=== PATIENT | female | born 1985 | race Caucasian/White ===

== ENCOUNTER 2023-04-25 13:59 | Emergency (ER) | payer OTHER, SELFPAY ==
[2023-04-25 14:06] VITALS: BP 122/91; PULSE 92; RESP 18; TEMP 36.7; O2SAT 100; BMI 28.3
--- NOTE | 2023-04-25 14:24 | ED_ITS ---
HPI - Skin/Abscess/Foreign Bdy General Chief complaint: Skin/Abscess/Foreign Body Stated complaint: LT BREAS LUMP W DRAINADGE Time Seen by Provider: 04/25/23 14:24 Source: patient Mode of arrival: walk-in Limitations: no limitations History of Present Illness HPI narrative: 38-year-old female presents to the emergency department for swelling and pain to her left breast, specifically at the nipple area. She thinks she saw some pus come out of her nipple. She's had this issue before and had to have them drained, twice. No fever or injury. She's had this for a few days and it's continuous. Related Data Previous Rx's Medication Instructions Recorded cephalexin 500 mg capsule 500 mg PO QID 10 days #40 caps 04/25/23 sulfamethoxazole 800 1 tab PO BID 10 days #20 tabs 04/25/23 mg-trimethoprim 160 mg tablet (Bactrim DS) Allergies Allergy/AdvReac Type Severity Reaction Status Date / Time Penicillins Allergy Intermediate Verified 04/25/23 14:09 Review of Systems ROS Narrative A ten point review of systems is negative except as noted above. PFSH PFSH Social History Smoking status: Current every day smoker Exam Narrative Exam Narrative: Nurses note and vital signs reviewed and patient is not hypoxic. General: The patient appears well and in no apparent distress. Patient is resting comfortably on cart. Skin: Warm, dry, no pallor noted. left breast is examined and in the areolar area is a firm area approximately 4 cm in diameter. It's not fluctuant. There is some minimal erythema outside the areola. There is no current nipple discharge. Head: Normocephalic, atraumatic Eye: Normal conjunctiva, no drainage Ears, Nose, Mouth, and Throat: oral mucosa is moist. Nares patent. Cardiovascular: Regular Rate and Rhythm Respiratory: Patient is in no distress, no accessory muscle use, lungs are clear to auscultation, no wheezing, rales or rhonchi Back: non-tender GI: soft and nontender Musculoskeletal: The patient has no evidence of calf tenderness, no pitting edema, symmetrical pulses noted bilaterally Neurological: A&O, normal speech Psychiatric: Cooperative Constitutional Vital Signs, click to edit/add: Last Vital Signs Temp 98.0 F 04/25/23 14:06 Pulse 92 H 04/25/23 14:06 Resp 18 04/25/23 14:06 BP 122/91 04/25/23 14:06 Pulse Ox 100 04/25/23 14:06 O2 Del Method Room Air 04/25/23 14:06 Course Vital Signs Vital signs: Vital Signs Temperature 98.0 F 04/25/23 14:06 Pulse Rate 92 H 04/25/23 14:06 Respiratory Rate 18 04/25/23 14:06 Blood Pressure 122/91 04/25/23 14:06 Pulse Oximetry 100 04/25/23 14:06 Oxygen Delivery Method Room Air 04/25/23 14:06 Temperature 98.0 F 04/25/23 14:06 Pulse Rate 92 H 04/25/23 14:06 Respiratory Rate 18 04/25/23 14:06 Blood Pressure 122/91 04/25/23 14:06 Pulse Oximetry 100 04/25/23 14:06 Oxygen Delivery Method Room Air 04/25/23 14:06 MDM - Skin/Abscess/Foreign Bdy MDM Narrative Medical decision making narrative: The patient's blood work is nonspecific and she was given IV vancomycin here. She is referred to general surgery for appropriate follow-up. Incision and drainage at this point would not be appropriate in the emergency department. She does not require admission the hospital. Treatment diagnosis and follow-up were discussed with the patient. Differential Diagnosis Differential diagnosis: Likely abscess of skin or subcutaneous tissue and cellulitis Lab Data Attestation: I reviewed the patient's lab results. Labs: Lab Results 04/25/23 Range/Units 14:37 WBC 9.7 (4.0-11.0) 10^3/uL RBC 4.17 L (4.20-5.40) 10^6/uL Hgb 12.9 (12.0-16.0) g/dL Hct 38.8 (36.0-48.0) % MCV 93.0 (81.0-99.0) fL MCH 30.9 (26.7-34.0) pg MCHC 33.2 (29.9-35.2) g/dL RDW 13.6 (11.0-15.0) % Plt Count 148 L (150-450) 10^3/uL MPV 10.8 (9.5-13.5) fL Neut % (Auto) 70.7 (43.0-75.0) % Lymph % (Auto) 23.5 (20.5-60.0) % [place] % (Auto) 4.4 (1.7-12.0) % Eos % (Auto) 0.6 L (0.9-7.0) % Baso % (Auto) 0.5 (0.2-2.0) % Neut # (Auto) 6.9 H (1.4-6.5) 10^3/uL Lymph # (Auto) 2.3 (1.2-3.8) 10^3/uL [place] # (Auto) 0.4 (0.3-0.8) 10^3/uL Eos # (Auto) 0.1 (0.0-0.7) 10^3/uL Baso # (Auto) 0.1 (0.0-0.1) 10^3/uL Abs Immat Gran (auto) 0.03 (0.00-0.03) 10^3/uL Imm/Tot Granulo (auto) 0.3 (0.0-0.5) % Sodium 139 (136-145) mmol/L Potassium 3.7 (3.5-5.1) mmol/L Chloride 103 (98-107) mmol/L Carbon Dioxide 27.9 (21.0-32.0) mmol/L Anion Gap 11.8 BUN 12.0 (7.0-18.0) mg/dL Creatinine 0.69 (0.55-1.02) mg/dL Est GFR ( Amer) >60 (>=60) Est GFR (Non-Af Amer) >60 (>=60) BUN/Creatinine Ratio 17.4 Glucose 91 (74-106) mg/dL Calcium 8.7 (8.5-10.1) mg/dL Discharge Plan Discharge Chief Complaint: Skin/Abscess/Foreign Body Clinical Impression: Breast abscess Patient Disposition: Home, Self-Care Time of Disposition Decision: 15:49 Condition: Good Mode of Transportation: Private Vehicle Prescriptions / Home Meds: New sulfamethoxazole-trimethoprim [Bactrim DS] 800-160 mg tablet 1 tab PO BID 10 Days Qty: 20 0RF cephalexin 500 mg capsule 500 mg PO QID 10 Days Qty: 40 0RF Instructions: Abscess (ED) Additional Instructions: follow-up with Dr. Owusu Stand Alone Forms: Portal Instructions Referrals: Physician,Non-Staff, MD [Primary Care Provider] - 1 week
[2023-04-25 14:42] LABS: Basophils Absolute Auto 0.1 10^3/uL (0.0-0.1); Basophils Percent Auto 0.5 % (0.2-2.0); Eosinophils Absolute Auto 0.1 10^3/uL (0.0-0.7); Eosinophils Percent Auto 0.6 % (0.9-7.0); Hematocrit 38.8 % (36.0-48.0); Hemoglobin 12.9 g/dL (12.0-16.0); Immature Granulocytes Abs Auto 0.03 10^3/uL (0.00-0.03); Immature Granulocytes Pct Auto 0.3 % (0.0-0.5); Lymphocytes Absolute Auto 2.3 10^3/uL (1.2-3.8); Lymphocytes Percent Auto 23.5 % (20.5-60.0); Mean Corpuscular HGB Conc 33.2 g/dL (29.9-35.2); Mean Corpuscular Hemoglobin 30.9 pg (26.7-34.0); Mean Platelet Volume 10.8 fL (9.5-13.5); Monocytes Absolute Auto 0.4 10^3/uL (0.3-0.8); Monocytes Percent Auto 4.4 % (1.7-12.0); Neutrophils Absolute Auto 6.9 10^3/uL (1.4-6.5); Neutrophils Percent Auto 70.7 % (43.0-75.0); Platelet Count 148 10^3/uL (150-450); Red Blood Count 4.17 10^6/uL (4.20-5.40); Red Cell Distribution Width 13.6 % (11.0-15.0); White Blood Count 9.7 10^3/uL (4.0-11.0)
[2023-04-25] MEDS: VANCOMYCIN HCL 1,250 MG in 0.9 % SODIUM CHLORIDE 250 ML 250 MG IV (14:59)
[2023-04-25 15:02] LABS: Anion Gap 11.8; BUN Creatinine Ratio 17.4; Calcium 8.7 mg/dL (8.5-10.1); Carbon Dioxide 27.9 mmol/L (21.0-32.0); Chloride 103 mmol/L (98-107); Estimated GFR (African America >60 (>=60); Estimated GFR (Non-African Ame >60 (>=60); Glucose 91 mg/dL (74-106); Potassium 3.7 mmol/L (3.5-5.1); Sodium 139 mmol/L (136-145)
== END 2023-04-25 16:17 | disposition home or self-care (01) ==
PROVIDERS: Emergency Provider Emergency Medicine
DX: N61.1 Abscess of the breast and nipple (principal); F17.210 Nicotine dependence, cigarettes, uncomplicated
CPT/HCPCS: 36415; 80048; 85025; 96374; 99284; J3370

== ENCOUNTER 2023-04-29 10:38 | Inpatient (IN) | payer OTHER, SELFPAY ==
[2023-04-29 10:42] VITALS: BP 120/90; PULSE 90; RESP 16; TEMP 36.6; O2SAT 100; BMI 29.2
--- NOTE | 2023-04-29 10:47 | PC.NURSE ---
Left breast has hard reddened area at nipple site, no drainage at this time.
--- NOTE | 2023-04-29 10:53 | US_ITS ---
Patient: WADE LOPEZ Exam Date: 04/29/2023 : 1985 Gender:F Ordering : Guera Arzate . Admission #: [id number] Family : Non-Staff Physician Order #: [id number] CLICK HERE TO VIEW EXAM RADIOLOGY REPORT PROCEDURE: US BREAST LT LIMITED COMPARISON: None. INDICATIONS: left breast tenderness and redness and induration TECHNIQUE: Breast ultrasound was performed, with evaluation focusing only on specific areas of concern. FINDINGS: Ultrasound of the left breast demonstrates a 3.7 x 3.2 x 2.0 cm area of heterogeneous hypo echogenicity, mildly lobular in contour with no vascularity. Some linear areas of hyperdensity are noted along the margin of the lesion, noted by the technologist to be packing within a recently incised and drained abscess. Peripheral hypervascularity is identified. Findings are consistent with a known abscess RECOMMENDATIONS: None PLEASE NOTE: A NORMAL ULTRASOUND EXAMINATION DOES NOT EXCLUDE THE POSSIBILITY OF BREAST CANCER. A CLINICALLY SUSPICIOUS PALPABLE LUMP SHOULD BE BIOPSIED. Dictated by: Gage Brownlee MD on 04/29/2023 at 13:47 Approved by: Gage Brownlee MD on 04/29/2023 at 13:53
[2023-04-29] MEDS: KETOROLAC TROMETHAMINE 30 MG/ML VIAL IVP (11:13)
[2023-04-29 11:30] LABS: Basophils Percent Auto 0.3 % (0.2-2.0); Eosinophils Percent Auto 0.1 % (0.9-7.0); Hematocrit 35.2 % (36.0-48.0); Hemoglobin 11.9 g/dL (12.0-16.0); Immature Granulocytes Abs Auto 0.05 10^3/uL (0.00-0.03); Immature Granulocytes Pct Auto 0.4 % (0.0-0.5); Lymphocytes Absolute Auto 1.8 10^3/uL (1.2-3.8); Lymphocytes Percent Auto 14.8 % (20.5-60.0); Mean Corpuscular HGB Conc 33.8 g/dL (29.9-35.2); Mean Corpuscular Hemoglobin 30.7 pg (26.7-34.0); Mean Platelet Volume 11.2 fL (9.5-13.5); Monocytes Absolute Auto 0.6 10^3/uL (0.3-0.8); Monocytes Percent Auto 4.8 % (1.7-12.0); Neutrophils Absolute Auto 9.4 10^3/uL (1.4-6.5); Neutrophils Percent Auto 79.6 % (43.0-75.0); Platelet Count 159 10^3/uL (150-450); Red Blood Count 3.87 10^6/uL (4.20-5.40); Red Cell Distribution Width 13.3 % (11.0-15.0); White Blood Count 11.8 10^3/uL (4.0-11.0)
[2023-04-29] MEDS: LIDOCAINE HCL 1% 100 MG/10 ML MDV INJ (11:32)
[2023-04-29] MEDS: FAMOTIDINE/PF 20 MG/2 ML VIAL IV (11:42)
[2023-04-29 11:45] LABS: Alanine Aminotransferase 18 U/L (14-59); Albumin Globulin Ratio 1.1; Albumin Level 3.8 g/dL (3.4-5.0); Alkaline Phosphatase 60 U/L (46-116); Anion Gap 13.8; Aspartate Amino Transferase 16 U/L (15-37); BUN Creatinine Ratio 14.5; Bilirubin Total 0.4 mg/dL (0.2-1.0); Calcium 8.7 mg/dL (8.5-10.1); Carbon Dioxide 25.1 mmol/L (21.0-32.0); Chloride 97 mmol/L (98-107); Estimated GFR (African America >60 (>=60); Estimated GFR (Non-African Ame >60 (>=60); Globulin 3.5 g/dL; Glucose 90 mg/dL (74-106); Potassium 3.9 mmol/L (3.5-5.1); Sodium 132 mmol/L (136-145); Total Protein 7.3 g/dL (6.4-8.2)
[2023-04-29] MEDS: CLINDAMYCIN PHOS 300 MG/50 ML PIGGYBACK 100 MG IV ×2 (12:24→18:30)
[2023-04-29 13:31] VITALS: BP 90/60; PULSE 66; RESP 18; O2SAT 98
--- NOTE | 2023-04-29 13:58 | ED.SKABFB1 ---
HPI - Skin/Abscess/Foreign Bdy General Chief complaint: Skin/Abscess/Foreign Body Stated complaint: ABSCESS ON LEFT BREAST Time Seen by Provider: 04/29/23 10:46 Source: patient Mode of arrival: walk-in Limitations: no limitations History of Present Illness HPI narrative: The patient coming to the ER with a left breast abscess and cellulitis that been going on at least for the last few days she was evaluated in the ER and provided with 2 antibiotics almost 4 days ago but the patient mentioned increasing pain, that is severe and she is not able to sleep the patient also and was noted to have increase in the redness and pain in her left breast Some chills no nausea no vomiting Related Data Previous Rx's Medication Instructions Recorded acetaminophen 300 mg-codeine 30 mg 1 tab PO Q6H PRN pain #20 tabs 04/25/23 tablet cephalexin 500 mg capsule 500 mg PO QID 10 days #40 caps 04/25/23 sulfamethoxazole 800 1 tab PO BID 10 days #20 tabs 04/25/23 mg-trimethoprim 160 mg tablet (Bactrim DS) Allergies Allergy/AdvReac Type Severity Reaction Status Date / Time Penicillins Allergy Intermediate Verified 04/29/23 10:45 Review of Systems ROS Status of ROS 10 or more systems reviewed and unremarkable except as noted in history and below PFSH PFS Social History Smoking status: Current every day smoker Exam Narrative Exam Narrative: Nurses notes and vital signs reviewed and patient is not hypoxic. General: Well-appearing and in no apparent distress. Skin: Warm, dry, no pallor noted. No rash. Head: Normocephalic, atraumatic. Neck: Supple, non-tender. Eye: Pupils are equal, round and EOMI. No scleral icterus. Ears, Nose, Mouth, and Throat: TM are clear, no nasal mucosal hypertrophy. Oral mucosa is moist, no posterior oropharynx erythema, uvula is mid-line Cardiovascular: Regular Rate and Rhythm without murmur, gallop or rub. Respiratory: No accessory muscle use or respiratory distress. Lungs are clear to auscultation, no wheezing, rales or rhonchi Breast examination: Left breast examination was benign right breast examination shows almost 1/3 of the breast mostly the lower third is red the skin is indurated and tender in the area just at the medial aspect of the areola including the half of the areola is very indurated,, while examining the patient the past started draining from the nipple the nipple is mildly retracted mostly in the medial aspect Back: No midline thoracic or lumbar vertebral tenderness. No CVA tenderness Musculoskeletal: normal ROM, no calf or popliteal tenderness, no lower extremity edema/swelling GI: Abdomen is soft, non-distended. Normal bowel sounds. No masses appreciated. No tenderness to palpation. No rebound, guarding, or rigidity noted. Neurological: A&O x4. No cranial nerve dysfunction observed. No truncal ataxia. Moves all extremities. Sensation intact. Psychiatric: Cooperative and interactive. Normal mood and affect. Constitutional Vital Signs, click to edit/add: Last Vital Signs Temp 97.8 F 04/29/23 10:42 Pulse 66 04/29/23 13:31 Resp 18 04/29/23 13:31 BP 90/60 04/29/23 13:31 Pulse Ox 98 04/29/23 13:31 O2 Del Method Room Air 04/29/23 10:42 Course Vital Signs Vital signs: Vital Signs Temperature 97.8 F 04/29/23 10:42 Pulse Rate 90 04/29/23 10:42 Respiratory Rate 16 04/29/23 10:42 Blood Pressure 120/90 04/29/23 10:42 Pulse Oximetry 100 04/29/23 10:42 Oxygen Delivery Method Room Air 04/29/23 10:42 Temperature 97.8 F 04/29/23 10:42 Pulse Rate 66 04/29/23 13:31 Respiratory Rate 18 04/29/23 13:31 Blood Pressure 90/60 04/29/23 13:31 Pulse Oximetry 98 04/29/23 13:31 Oxygen Delivery Method Room Air 04/29/23 10:42 MDM - Skin/Abscess/Foreign Bdy MDM Narrative Medical decision making narrative: Ultrasound at the bedside showed that the patient have a collection of pus that could be drained by large bore needle, the patient had the area cleaned with Betadine as well as normal saline after which she had aspiration by large bore needle 18-gauge with also infiltrating the area around it with 45 cc of 1% lidocaine I was able to at least aspirate 20 cc of pus and then 11 size blade small stab with the cath in the loculation with the hemostat I was able to drain even more pus Wound culture was sent Patient failed treatment with outpatient with p.o. antibiotic I discussed the case with Dr. Gil who is the surgeon on-call and he agreed to see the patient as inpatient Ultrasound of the breast is done and the patient might need further drainage Lab Data Labs: Lab Results 04/29/23 Range/Units 11:00 WBC 11.8 H (4.0-11.0) 10^3/uL RBC 3.87 L (4.20-5.40) 10^6/uL Hgb 11.9 L (12.0-16.0) g/dL Hct 35.2 L (36.0-48.0) % MCV 91.0 (81.0-99.0) fL MCH 30.7 (26.7-34.0) pg MCHC 33.8 (29.9-35.2) g/dL RDW 13.3 (11.0-15.0) % Plt Count 159 (150-450) 10^3/uL MPV 11.2 (9.5-13.5) fL Neut % (Auto) 79.6 H (43.0-75.0) % Lymph % (Auto) 14.8 L (20.5-60.0) % [place] % (Auto) 4.8 (1.7-12.0) % Eos % (Auto) 0.1 L (0.9-7.0) % Baso % (Auto) 0.3 (0.2-2.0) % Neut # (Auto) 9.4 H (1.4-6.5) 10^3/uL Lymph # (Auto) 1.8 (1.2-3.8) 10^3/uL [place] # (Auto) 0.6 (0.3-0.8) 10^3/uL Eos # (Auto) 0.0 (0.0-0.7) 10^3/uL Baso # (Auto) 0.0 (0.0-0.1) 10^3/uL Abs Immat Gran (auto) 0.05 H (0.00-0.03) 10^3/uL Imm/Tot Granulo (auto) 0.4 (0.0-0.5) % Sodium 132 L (136-145) mmol/L Potassium 3.9 (3.5-5.1) mmol/L Chloride 97 L (98-107) mmol/L Carbon Dioxide 25.1 (21.0-32.0) mmol/L Anion Gap 13.8 BUN 12.0 (7.0-18.0) mg/dL Creatinine 0.83 (0.55-1.02) mg/dL Est GFR ( Amer) >60 (>=60) Est GFR (Non-Af Amer) >60 (>=60) BUN/Creatinine Ratio 14.5 Glucose 90 (74-106) mg/dL Calcium 8.7 (8.5-10.1) mg/dL Total Bilirubin 0.4 (0.2-1.0) mg/dL AST 16 (15-37) U/L ALT 18 (14-59) U/L Alkaline Phosphatase 60 (46-116) U/L Total Protein 7.3 (6.4-8.2) g/dL Albumin 3.8 (3.4-5.0) g/dL Globulin 3.5 g/dL Albumin/Globulin Ratio 1.1 Discharge Plan Discharge Chief Complaint: Skin/Abscess/Foreign Body Clinical Impression: Breast abscess, Cellulitis of breast Patient Disposition: Admitted As Inpatient Time of Disposition Decision: 14:06 Condition: Good
[2023-04-29 14:49] LABS: Erythrocyte Sedimentation Rate 22 mm/hr (<=20)
[2023-04-29 14:56] LABS: C Reactive Protein 7.6 mg/dL (<=1.0)
[2023-04-29 15:01] VITALS: BP 115/64; PULSE 64; RESP 16; RESP 18; TEMP 36.7; O2SAT 96; BMI 29.2
[2023-04-29 15:04] LABS: Lactate/Lactic Acid 0.5 mmol/L (0.4-2.0)
--- NOTE | 2023-04-29 15:13 | P.HP_ITS ---
Patient not seen. Agree with assessment and plan below. Admitted with breast abscess after failing outpatient treatment with oral antibiotics. On clindamycin and general surgery consulted. Diagnosis: 1. Breast abscess 2. 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 The patient reports onset of left areolar pain and swelling about 1 week ago. She presented to the ED 5 days ago for further evaluation and was prescribed Keflex and Bactrim and discharged home without I&D. The patient reports taking her antibiotic as prescribed but experienced increasing swelling, redness, warmth, and significant pain to the left breast. She also reports periodic chills and shaking but did not take her temperature at home. She returned to the ED earlier today for further evaluation. Work-up in the ED revealed leukocytosis (11.8) and physical exam findings of the left breast were consistent with a large abscess collection and surrounding cellulitis. Needle aspiration was performed by the ED provider and then further I&D was performed. A large amount of purulent matter was expressed from the wound but follow-up ultrasound revealed likely further abscess collection in the deep tissues. Wound exudate was sent for culture. The patient's condition was discussed with Dr. Gil, general surgeon, and he agreed to see the patient in consult as further I&D may be indicated. The patient is being admitted to the hospitalist service as an inpatient for a left breast abscess refractory to outpatient antibiotics with broad gram-positive/MRSA coverage. At the time of my exam the patient reports significant relief of pain to her left breast after the incision and drainage in the ED. She continues to note exquisite tenderness with breast palpation. Wound packing is in place pending further surgical evaluation. The patient's blood pressure is a little soft at the time of my exam (90/60). The patient denies dizziness but did note that she was slightly lightheaded when she got up to go to the bathroom. We have initiated further sepsis work-up including blood cultures and lactic acid along with ESR and CRP. The patient will be treated with IV clindamycin and we will give an IVF bolus now and then maintenance IV fluids. Low threshold to broaden antibiotic coverage pending clinical course. Review of Systems ROS Status of ROS 10 or more systems reviewed and unremarkable except as noted in history and below [facility] Medical History (Updated 04/29/23 @ 15:30 by Radha Wilson NP) Tobacco dependence ?F17.200 - Nicotine dependence, unspecified, uncomplicated (ICD-10) Social History Smoking status: Current every day smoker Meds Home Medications and Allergies Home Medications Medication Instructions Recorded Confirmed Type acetaminophen 300 mg-codeine 30 mg 1 tab PO Q6H PRN pain #20 tabs 04/25/23 Rx tablet cephalexin 500 mg capsule 500 mg PO QID 10 days #40 caps 04/25/23 Rx sulfamethoxazole 800 1 tab PO BID 10 days #20 tabs 04/25/23 Rx mg-trimethoprim 160 mg tablet (Bactrim DS) Allergies Allergy/AdvReac Type Severity Reaction Status Date / Time Penicillins Allergy Intermediate Verified 04/29/23 10:45 Exam Constitutional Vital Signs, click to edit/add: Last Vital Signs Temp 97.8 F 04/29/23 10:42 Pulse 66 04/29/23 13:31 Resp 18 04/29/23 13:31 BP 90/60 04/29/23 13:31 Pulse Ox 98 04/29/23 13:31 O2 Del Method Room Air 04/29/23 10:42 Common normals: no apparent distress, oriented x3, alert and well nourished General appearance: cooperative Orientation/consciousness: Yes awake HENVA Common normals: normocephalic, head/scalp atraumatic, hearing grossly normal bilaterally, external ears normal, external nose normal and moist oral mucous membranes Eye Common normals: PERRL, EOMs intact bilaterally, conjunctivae normal and no scleral icterus General eye: normal appearance of both eyes Alignment: alignment normal Eyelid: eyelids normal Conjunctiva: conjunctiva(e) normal Pupil: PERRL Neck & C-Spine Common normals: full ROM, supple and no JVD Chest Common normals: inspection of chest normal Chest: symmetrical chest wall rise Breast/axilla inspection: abnormal inspection of the breast (L areolar I&D wound w/ packing. Erythema/calor to dependent L breast area) Respiratory Common normals: normal respiratory effort, no retractions and no use of accessory muscles Effort & inspection: able to speak in complete sentences Auscultation: wheezes (Faint expiratory w/ coughing) Cardio Common normals: no JVD, regular rate, regular rhythm, S1 normal heart sound, S2 normal heart sound, no gallops, no clicks, no murmurs, no rub and peripheral pulses 2+ throughout GI Common normals: Normal to inspection, nondistended, normoactive bowel sounds present, soft to palpation, non-tender, no hepatosplenomegaly, no masses and no bruits Palpation: soft and no hepatosplenomegaly Bladder/kidney exam: bladder normal to palpation Bimanual exam- vagina & uterus: bladder normal to palpation Back & Pelvis Common normals: thoracic and lumbar spine normal to inspection Extremity Common normals: normal capillary refill and no pedal edema General: normal exam except as noted; no clubbing and no cyanosis Neuro Lizzy Coma Scale: GCS not evaluated Common normals: oriented x3, CN's II-XII intact bilaterally, moves all extremities, no focal motor deficits and no sensory deficits noted Sensorium/orientation: awake and alert Speech: speech normal Motor exam: strength 5/5 throughout Psych Common normals: mental status grossly normal, thought process normal, affect normal and activity/motor behavior normal Thought process: normal thought process Results Labs Labs: Short CBC 04/29/23 Range/Units 11:00 WBC 11.8 H (4.0-11.0) 10^3/uL Hgb 11.9 L (12.0-16.0) g/dL Hct 35.2 L (36.0-48.0) % Plt Count 159 (150-450) 10^3/uL BMP 04/29/23 11:00 Sodium 132 L Potassium 3.9 Chloride 97 L Carbon Dioxide 25.1 BUN 12.0 Creatinine 0.83 Glucose 90 Calcium 8.7 Liver Function 04/29/23 Range/Units 11:00 Total Bilirubin 0.4 (0.2-1.0) mg/dL AST 16 (15-37) U/L ALT 18 (14-59) U/L Alkaline Phosphatase 60 (46-116) U/L Albumin 3.8 (3.4-5.0) g/dL Pulse Oximetry Attestation: I have reviewed the pertinent pulse oximetry results. Imaging Breast US: Attestation: I have reviewed the pertinent imaging results. Radiologist's impression: FINDINGS: Ultrasound of the left breast demonstrates a 3.7 x 3.2 x 2.0 cm area of heterogeneous hypo echogenicity, mildly lobular in contour with no vascularity. Some linear areas of hyperdensity are noted along the margin of the lesion, noted by the technologist to be packing within a recently incised and drained abscess. Peripheral hypervascularity is identified. Findings are consistent with a known abscess Assessment and Plan Assessment and Plan (1) Breast abscess: Assessment and Plan: ACUTE * Adm inpatient * failed OP ABX x 5 days w/ Keflex & Bactrim DS * No convincing sepsis at this time but remains at risk * BP soft - 90/60 * Obtain BC x 2, lactic acid, ESR, CRP now * VSS w/o fever, tachycardia, tachypnea * 1 liter LR bolus now, then 125/hr overnight * IVPB Clindamycin 300 mg q6h, low threshold to add additional coverage including gram neg pending clinical course * Wound cultures obtained in the ED - pending * C/S Dr Gil, general surgeon - we appreciate his assistance with this pt's care * Deep tissue I&D may be indicated, defer to surgical team * Toradol and percocet for pain * CBC, CMP daily (2) Tobacco dependence: Assessment and Plan: CHRONIC * Nicoderm 21 mg patch daily
[2023-04-29] MEDS: NICOTINE 21 MG PATCH TD (15:20)
[2023-04-29 15:27] VITALS: BP 115/64; PULSE 64; RESP 18; TEMP 36.7; O2SAT 96
[2023-04-29] MEDS: OXYCODONE HCL/ACETAMINOPHEN 5MG/325MG 1 TAB PO ×2 (16:07→21:28)
[2023-04-29] MEDS: LACTATED RINGER'S SOLUTION 1,000 ML 1000 ML IV (16:24)
[2023-04-29] MEDS: LACTATED RINGER'S SOLUTION 1,000 ML 125 ML IV (17:32)
[2023-04-29 19:04] VITALS: BP 104/71; PULSE 67; RESP 20; TEMP 36.7; O2SAT 99
[2023-04-29 20:00] VITALS: RESP 20
--- NOTE | 2023-04-29 20:20 | PC.NURSE ---
Spoke with Dr. Gil. Will come see patient in AM. Verbal phone order for NPO after 0000 . 10:30 am on 04/30/2023 I and D scheduled. Updated patient on plan of care.
[2023-04-29] MEDS: L. ACIDOPHILUS/L.BULGARICUS 1 PACKET GRAN.PACK PO (21:18)
[2023-04-30] VITALS (14 sets, daily range): BP systolic 103–158; BP diastolic 65–81; PULSE 60–93; RESP 14–22; TEMP 36.2–37.2; O2SAT 94–98
[2023-04-30] MEDS: CLINDAMYCIN PHOS 300 MG/50 ML PIGGYBACK 100 MG IV ×2 (00:02→06:27)
[2023-04-30] MEDS: LACTATED RINGER'S SOLUTION 1,000 ML 125 ML IV (01:24)
[2023-04-30] MEDS: OXYCODONE HCL/ACETAMINOPHEN 5MG/325MG 1 TAB PO ×2 (04:49→13:18)
[2023-04-30 05:02] LABS: Basophils Percent Auto 0.3 % (0.2-2.0); Eosinophils Absolute Auto 0.1 10^3/uL (0.0-0.7); Eosinophils Percent Auto 0.7 % (0.9-7.0); Hematocrit 34.4 % (36.0-48.0); Hemoglobin 11.5 g/dL (12.0-16.0); Immature Granulocytes Abs Auto 0.04 10^3/uL (0.00-0.03); Immature Granulocytes Pct Auto 0.4 % (0.0-0.5); Lymphocytes Absolute Auto 1.9 10^3/uL (1.2-3.8); Lymphocytes Percent Auto 21.5 % (20.5-60.0); Mean Corpuscular HGB Conc 33.4 g/dL (29.9-35.2); Mean Corpuscular Hemoglobin 30.6 pg (26.7-34.0); Mean Corpuscular Volume 91.5 fL (81.0-99.0); Mean Platelet Volume 10.6 fL (9.5-13.5); Monocytes Absolute Auto 0.5 10^3/uL (0.3-0.8); Monocytes Percent Auto 5.4 % (1.7-12.0); Neutrophils Absolute Auto 6.5 10^3/uL (1.4-6.5); Neutrophils Percent Auto 71.7 % (43.0-75.0); Platelet Count 153 10^3/uL (150-450); Red Blood Count 3.76 10^6/uL (4.20-5.40); Red Cell Distribution Width 13.4 % (11.0-15.0)
[2023-04-30 05:21] LABS: Alanine Aminotransferase 9 U/L (14-59); Albumin Globulin Ratio 0.9; Albumin Level 2.9 g/dL (3.4-5.0); Alkaline Phosphatase 50 U/L (46-116); Anion Gap 9.8; Aspartate Amino Transferase 11 U/L (15-37); BUN Creatinine Ratio 16.7; Bilirubin Total 0.3 mg/dL (0.2-1.0); Calcium 8.7 mg/dL (8.5-10.1); Carbon Dioxide 25.4 mmol/L (21.0-32.0); Chloride 102 mmol/L (98-107); Estimated GFR (African America >60 (>=60); Estimated GFR (Non-African Ame >60 (>=60); Globulin 3.1 g/dL; Glucose 86 mg/dL (74-106); Potassium 4.2 mmol/L (3.5-5.1); Sodium 133 mmol/L (136-145)
--- NOTE | 2023-04-30 09:45 | P.GSCN_ITS ---
History of Present Illness Consult details Consult date: 04/30/23 Reason for consult: other (Chronically recurring, nonpuerperal, deep subareolar abscess of the left breast) Requesting physician: Naman Ferguson Narrative: Patient is a 38-year-old white female, who is seen in consultation at the request of the attending hospitalist, Dr. Naman Ferguson. Consultation is requested for surgical evaluation and management of a chronically recurring, nonpuerperal, deep subareolar abscess of the left breast. The patient is seen in surgical consultation at 0945 hrs. 04/30/2023. In the course of consultation, the electronic medical record is comprehensively reviewed. The patient is interviewed and examined. The results of all available laboratory tests are reviewed and noted. A diagnostic ultrasound examination of the left breast is personally viewed and interpreted. According to the patient, she has undergone multiple office and/or emergency department based incision and drainage procedures in the past, without a causative etiology ever having been determined for these recurring abscesses. The current condition arose 04/25/2023, on which date the patient presented to the emergency department at the [facility], requesting an incision and drainage. Instead, the patient was prescribed both Keflex and Bactrim, and discharged home. Despite taking the antibiotics as prescribed, the patient experienced increased swelling, redness, warmth, and significantly worsening pain in her left breast. The patient remarks that she has seen pus draining from the left nipple. This drainage is expressible. In addition, she notes shaking chills but was not able to take her temperature at home. With progression, the patient represented to the emergency department 04/29/2023. At presentation, the patient was found to have a large, firm, and exquisitely tender deep left subareolar abscess surrounded by intense erythema and cellulitis. White blood cell count is elevated at 11,800. The emergency department physician performed a needle aspiration of the abscess, and obtained purulent fluid for Gram stain and culture. Limited ultrasound examination of the left breast 04/29/2023, reveals a 3.7 cm x 3.2 cm x 2 cm area of heterogeneous hypoechogenicity deep to the left nipple, consistent with an abscess. Areas of hyperdensity are noted at the margins of the lesion. Peripheral hypervascularity is identified. Review of Systems ROS Narrative 12 point review of systems is negative or otherwise noncontributory except as documented in the HPI. PFS PFS Medical History (Updated 04/29/23 @ 15:30 by Radha Wilson NP) Tobacco dependence ?F17.200 - Nicotine dependence, unspecified, uncomplicated (ICD-10) Family History (Updated 04/29/23 @ 15:53 by Daily Shaw) Father Family history of COPD (chronic obstructive pulmonary disease) Mother Family history of cancer Social History (Updated 04/29/23 @ 15:52 by Daily Shaw) Within the past year, how often did you have a drink containing alcohol: never Score interpretation: A score less than 3 is consistent with normal alcohol consumption. 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 Known occupational exposures/hazards: No Highest level of school completed/degree received: high school graduate Do you want help with school or training: No Are you now , , , , never or living with a partner: In a typical week, how many times do you talk on the telephone with family, friends, or neighbors: 3 or more times per week How often do you get together with friends or relatives: 3 or more times per week How often do you attend mormonism or anglican services: 4 or more times per year Do you belong to any clubs or organizations such as mormonism groups unions, fraternal or athletic groups, or school groups: no Total score: 3 Score interpretation: A score of greater than or equal to 2 indicates the lowest level of social isolation. Little interest or pleasure in doing things: not at all Feeling down, depressed, or hopeless: not at all Feel stressed/tense/nervous/anxious/difficulty sleeping: not at all Due to disability, difficulty making decisions: No Do you think of yourself as: straight/heterosexual Gender Identity: female Meds Home Medications and Allergies Home Medications Medication Instructions Recorded Confirmed Type clindamycin HCl 300 mg capsule 300 mg PO Q8H 7 days #21 caps 05/02/23 Rx ibuprofen 600 mg tablet 600 mg PO Q8H PRN pain #30 tabs 05/02/23 Rx levofloxacin 750 mg tablet 750 mg PO DAILY 7 days #7 tabs 05/02/23 Rx oxycodone 5 mg tablet 5 mg PO Q8H PRN pain 4 days #10 05/02/23 Rx tabs Allergies Allergy/AdvReac Type Severity Reaction Status Date / Time Penicillins Allergy Intermediate Verified 04/29/23 10:45 Exam Constitutional Vital Signs, click to edit/add: Last Vital Signs Temp 97.8 F 04/29/23 10:42 Pulse 66 04/29/23 13:31 Resp 18 04/29/23 13:31 BP 90/60 04/29/23 13:31 Pulse Ox 98 04/29/23 13:31 O2 Del Method Room Air 04/29/23 10:42 Other: Well-developed, well-nourished, middle-aged white female. Obvious inflammatory distress pertaining to the left breast. HENMT Other: Head normocephalic and atraumatic. Pupils equally round and reactive to light. Extraocular movements intact. Nasal and oropharynx are clear without erythema or exudate. Mucous membranes are moist. There are no oral or pharyngeal mass lesions. Neck & C-Spine Other: Trachea midline. Carotid pulses 2+ bilaterally. No thyromegaly. No jugular venous distention. There is no palpable cervical or supraclavicular lymphadenopathy. Chest Other: Unlabored respirations. Equal chest wall expansion bilaterally. Lungs are clear to auscultation bilaterally without rales wheezes or rhonchi. There is no palpable axillary lymphadenopathy. Focused examination of the left breast shows marked erythema and soft tissue induration consistent with cellulitis. Inflammatory focus is centered around and behind the nipple areolar complex. Multiple prior incision and drainage sites are seen medial to the left areola, and along the circumareolar margin. Purulent material is expressible from the left nipple. The breast is extremely firm and indurated. There is exquisite tenderness with manipulation. Recent I&D site is seen within the medial aspect of the left areola, with Nu Gauze packing in place. The packing is removed. There is an immediate efflux of purulent fluid under pressure. Fluid is chocolate brown in color and extremely foul-smelling. There is no active bleeding. Cardio Other: Heart regular rate and rhythm. Normal S1 and S2. No murmur. GI Other: Abdomen is soft, nondistended, and nontender. No hepatosplenomegaly. Intra- abdominal mass is not appreciated. Other: Not examined. Extremity Other: Normal range of motion in all extremities x4. There is no evidence of lymphedema involving the left upper extremity. There is no dependent lower extremity edema. Neuro Other: Alert and oriented to time, place, and person. Neurologic status is grossly intact and without obvious focal deficits. Psych Other: Pleasant and conversant. Normal mood and affect. Good insight and understanding. Results Labs Labs: Abnormal lab results 04/29/23 Range/Units 11:00 RBC 3.87 L (4.20-5.40) 10^6/uL Hgb 11.9 L (12.0-16.0) g/dL Hct 35.2 L (36.0-48.0) % WBC 11.8 H (4.0-11.0) 10^3/uL Platelet Count 159 (150-450) 10^3/uL Neut % 79.6 H (43.0-75.0) % Lymph % 14.8 L (20.5-60.0) % [place]% 4.8 (1.7-12.0) % Eos % 0.1 L (0.9-7.0) % Diabetes panel 04/29/23 Range/Units 11:00 Sodium 132 L (136-145) mmol/L Potassium 3.91 (3.5-5.1) mmol/L Chloride 97 (98-107) mmol/L Carbon Dioxide 25.1 (21.0-32.0) mmol/L BUN 12.0 (7.0-18.0) mg/dL Creatinine 0.83 (0.55-1.02) mg/dL Glucose 90 (74-106) mg/dL Calcium 8.7 (8.5-10.1) mg/dL AST 16 (15-37) U/L ALT 18 (14-59) U/L Alkaline Phosphatase 60 (46-116) U/L Total Protein 7.3 (6.4-8.2) g/dL Albumin 3.8 (3.4-5.0) g/dL Calcium panel Pituitary panel Adrenal panel All other labs normal. Imaging Additional studies: Patient: WADE LOPEZ MR#: [id number] : 1985 Acct:[id number] Age/Sex: 38 / F ADM Date: 04/29/23 Loc: ER Attending Dr: Ordering Physician: Guera Arzate Date of Service: 04/29/23 Procedure(s): US breast LT limited Accession Number(s): [id number] cc: Guera Arzate; Physician,Non-Staff MAndrewDAndrew~ Patient: WADE LOPEZ Exam Date: 04/29/2023 : 1985 Gender:F Ordering : Guera Arzate . Admission #: [id number] Family : Non-Staff Physician Order #: [id number] CLICK HERE TO VIEW EXAM RADIOLOGY REPORT PROCEDURE: US BREAST LT LIMITED COMPARISON: None. INDICATIONS: left breast tenderness and redness and induration TECHNIQUE: Breast ultrasound was performed, with evaluation focusing only on specific areas of concern. FINDINGS: Ultrasound of the left breast demonstrates a 3.7 x 3.2 x 2.0 cm area of heterogeneous hypo echogenicity, mildly lobular in contour with no vascularity. Some linear areas of hyperdensity are noted along the margin of the lesion, noted by the technologist to be packing within a recently incised and drained abscess. Peripheral hypervascularity is identified. Findings are consistent with a known abscess RECOMMENDATIONS: None PLEASE NOTE: A NORMAL ULTRASOUND EXAMINATION DOES NOT EXCLUDE THE POSSIBILITY OF BREAST CANCER. A CLINICALLY SUSPICIOUS PALPABLE LUMP SHOULD BE BIOPSIED. Dictated by: Gage Brownlee MD on 04/29/2023 at 13:47 Approved by: Gage Brownlee MD on 04/29/2023 at 13:53 Assessment and Plan Assessment and Plan (1) Breast abscess: Assessment and Plan: 1) Mastotomy incision, drainage, and wide debridement of a chronic nonpuerperal deep subareolar abscess of left breast 04/30/2023 2) Open incisional biopsy of abnormal subareolar breast tissue 04/30/2023 -Hospital inpatient -General anesthesia Discussion: The patient is counseled that given both the size and the chronicity of this abscess, it is unlikely that resolution can be achieved without undertaking a formal incision, drainage, and wide debridement of the chronically inflamed tissue. The indications, risks, benefits, and potential complications of a mastotomy incision with drainage and wide debridement are reviewed in detail with the patient. The patient is advised that at the time of drainage and debridement, an open incisional biopsy of this chronically inflamed subareolar breast tissue will be taken and submitted to pathology in order to rule out an occult neoplasm. The patient indicates her understanding of the proposed operative plan of management, and requests that we proceed as soon as possible with mastotomy incision, drainage, and wide debridement.
[2023-04-30 10:00] LABS: HCG Qualitative NEGATIVE (NEGATIVE)
[2023-04-30] MEDS: LACTATED RINGER'S SOLUTION 1,000 ML 100 ML IV ×2 (10:07→13:16)
[2023-04-30] MEDS: IMIPENEM/CILASTATIN SODIUM 1,000 MG in 0.9 % SODIUM CHLORIDE 100 ML 100 MG IV ×2 (10:50→21:54)
--- NOTE | 2023-04-30 11:36 | CM.NOTE ---
Rounds made with Dr. Ferguson, pt was in PACU when pt was evaluated. Pt going to OR for I&D.
--- NOTE | 2023-04-30 12:28 | P.PN_ITS ---
Patient seen and examined, agree with assessment and plan. Change to broad spectrum antibiotics due to worsening abscess overnight. Await wound cultures and I&D planned for today. Will need wound care and possibly IV antibiotics based on sensitivities. Diagnosis: 1. Breast abscess 2. Tobacco user Progress Note: Subjective Subjective Interval history: Date/time of exam: 04/30/23 0900 The pt is resting in bed quietly. She reports increasing pain, swelling and redness to the left breast overnight and is tearful d/t pain with any upper body movement. Dr Gil, general surgeon, is planning to take her to the OR for a deep tissue I&D later this morning. D/t poor response to clindamycin and w/ recurrent infections making MRSA & gram neg pathogens a clinical concern, we will empirically broaden her ABX coverage to IVPB Vancomycin and Primaxin (PCN allergy) pending wound cx results (sent 04/29). She has been NPO since midnight for surgery, so her pain medications will be converted to IVP for now. Otherwise, the pt has no acute complaints. Exam Constitutional Vital Signs, click to edit/add: Last Vital Signs Temp 97.1 F L 04/30/23 12:06 Pulse 79 04/30/23 12:21 Resp 19 04/30/23 12:21 BP 158/73 H 04/30/23 12:21 Pulse Ox 95 04/30/23 12:21 O2 Del Method Room Air 04/30/23 12:21 Common normals: no apparent distress, oriented x3 and alert General appearance: cooperative Orientation/consciousness: Yes awake HENME Common normals: normocephalic, head/scalp atraumatic and hearing grossly normal bilaterally Eye Common normals: PERRL, EOMs intact bilaterally, conjunctivae normal and no scleral icterus Chest Chest: symmetrical chest wall rise Breast/axilla inspection: abnormal inspection of the breast (medial, dependent erythema, calor, tenderness, swelling. Worsening) left lower inner Respiratory Common normals: normal respiratory effort, no use of accessory muscles and clear to auscultation bilaterally Cardio Common normals: no JVD, regular rate, regular rhythm, S1 normal heart sound, S2 normal heart sound, no gallops, no clicks, no murmurs, no rub and peripheral pulses 2+ throughout GI Common normals: Normal to inspection, nondistended, normoactive bowel sounds present, soft to palpation, non-tender and no hepatosplenomegaly Bladder/kidney exam: bladder normal to palpation Extremity Common normals: normal to inspection and no calf tenderness General: no clubbing, no cyanosis and no edema Neuro Common normals: oriented x3, CN's II-XII intact bilaterally, moves all extremities, no focal motor deficits and no sensory deficits noted Sensorium/orientation: awake and alert Psych Common normals: mental status grossly normal Progress Note: Objective Labs Labs: Short CBC 04/30/23 Range/Units 04:50 WBC 9.0 (4.0-11.0) 10^3/uL Hgb 11.5 L (12.0-16.0) g/dL Hct 34.4 L (36.0-48.0) % Plt Count 153 (150-450) 10^3/uL BMP 04/30/23 04:50 Sodium 133 L Potassium 4.2 Chloride 102 Carbon Dioxide 25.4 BUN 12.0 Creatinine 0.72 Glucose 86 Calcium 8.7 Liver Function 04/30/23 Range/Units 04:50 Total Bilirubin 0.3 (0.2-1.0) mg/dL AST 11 L (15-37) U/L ALT 9 L (14-59) U/L Alkaline Phosphatase 50 (46-116) U/L Albumin 2.9 L (3.4-5.0) g/dL Progress Note: A&P Assessment and Plan (1) Breast abscess: Assessment and Plan: ACUTE * Worsened overnight w/ recurrent fluid collection, increased erythema, calor, tenderness * No convincing sepsis at this time but remains at risk * BP stable after IVF bolus and maintenance infusion * BC x 2 - pending * Lactic acid - 0.5, ESR - 22, CRP - 7.6 * VSS w/o fever, tachycardia, tachypnea * D/C Clindamycin d/t worsening infection, inadequate response. * Clinical concern for MRSA or gram neg pathogens. * Initiate broad MRSA and gram neg coverage pending cx results * IVPB vanco w/ pharm to dose PLUS Primaxin (PCN allergy) * Wound cultures obtained in the ED - pending * C/S Dr Gil, general surgeon - we appreciate his assistance with this pt's care * Deep tissue I&D planned later this morning * Continue Toradol and percocet for pain. Add IVP Morphine while NPO * CBC, CMP daily (2) Tobacco dependence: Assessment and Plan: CHRONIC * Continue Nicoderm 21 mg patch daily
[2023-04-30] MEDS: ONDANSETRON PF 4 MG/2 ML VIAL IV ×2 (13:18→20:48)
[2023-04-30] MEDS: VANCOMYCIN HCL 1,000 MG in 0.9 % SODIUM CHLORIDE 250 ML 250 MG IV (15:14)
[2023-04-30] MEDS: NICOTINE 21 MG PATCH TD (15:15)
--- NOTE | 2023-04-30 15:15 | P.GSPRC_ITS ---
Date of procedure: 04/30/23 Indications for Procedure: Patient is a 38-year-old white female, who was seen in consultation after having presented to the emergency department at [facility] 04/29/2023, with a chronically recurring, nonpuerperal, deep subareolar abscess of the left breast. According to the patient, she has undergone multiple office and/or emergency department based incision and drainage procedures in the past, without a causative etiology ever having been determined for these recurring abscesses. The current condition arose 04/25/2023, on which date the patient presented to the emergency department requesting an incision and drainage. Instead, the patient was prescribed both Keflex and Bactrim, and discharged home. Despite taking the antibiotics as prescribed, the patient experienced increased swelling, redness, warmth, and significantly worsening pain in her left breast. In addition, she notes shaking chills but was not able to take her temperature at home. With progression, the patient represented to the emergency department 04/29/2023. At presentation, the patient was found to have a large, firm, and exquisitely tender deep left subareolar abscess surrounded by intense erythema and cellulitis. White blood cell count was elevated at 11,800. The emergency department physician performed a needle aspiration of the abscess, and obtained purulent fluid for Gram stain and culture. Limited ultrasound examination of the left breast 04/29/2023, revealed a 3.7 cm x 3.2 cm x 2 cm area of h eterogeneous hypoechogenicity deep to the left nipple, consistent with an abscess. Areas of hyperdensity were noted at the margins of the lesion. Peripheral hypervascularity was identified. The patient has been counseled that given both the size and the chronicity of this abscess, it is unlikely that resolution can be achieved without undertaking a formal incision, drainage, and wide debridement of the chronically inflamed tissue. The indications, risks, benefits, and potential complications of a mastotomy incision with drainage and wide debridement have been reviewed in detail with the patient. The patient is advised that at the time of drainage and debridement, and open incisional biopsy of this chronically inflamed subareolar breast tissue will be taken and submitted to pathology in order to rule out an occult neoplasm. The patient has indicated her understanding of the proposed operative plan of management, and has provided her informed written consent to proceed as outlined. This patient is now taken on an emergency basis to the operative suite for mastotomy incision with drainage and wide debridement of a chronic nonpuerperal deep subareolar abscess of the left breast. Pre-op diagnosis: Chronic nonpuerperal abscess of left breast (N61.1) Post-op diagnosis: other (Chronic nonpuerperal abscess of left breast (N61.1) -- pathology pending ) Procedure: 1) Mastotomy incision, drainage, and wide debridement of a chronic nonpuerperal deep subareolar abscess of left breast () 2) Open incisional biopsy of abnormal subareolar breast tissue (43473?[id number]) Findings: Chronic nonpuerperal 4 cm x 3 cm x 2 cm subareolar left breast abscess containing grossly purulent foul-smelling chocolate colored fluid and inspissated sebaceous material Anesthesia: General-LMA Surgeon: Dimitri Gil Procedure Summary: At 1056 hrs. 04/30/2023, the patient was taken to the operative suite where she was positioned supine on the operating room table. General laryngeal mask anesthesia was administered by Dr. Miugel Escoto. This patient is classified as an ASA class II E anesthetic risk. Since 04/25/2023, this patient has been taking Keflex and Bactrim DS orally. Upon admission 04/29/2023, the patient was started on IV clindamycin. Within 30 minutes prior to commencement of the operative case, this patient received Primaxin 1 g, in the empiric antimicrobial management of what is suspected of being a polymicrobial abscess of the left breast. DVT prophylaxis was maintained throughout the intraoperative course by the use of sequential pneumatic compression stockings. Following the satisfactory induction of general anesthesia, the left breast and left anterior chest were widely prepped using an iodine-based solution. The patient was draped in the normal sterile fashion for incision, drainage, and debridement of a left breast abscess. An appropriate timeout was performed in order to confirm the correct procedure to be conducted. The operative procedure commenced at 1117 hrs. With the abscess being situated deep to the nipple areolar complex, and straddling the junction between the upper inner and lower inner quadrants of the left breast, it was elected to approach the abscess using a circumareolar incision extending from the 7 o'clock position to the 12 o'clock position. The skin was incised using a #15 scalpel. The incision was carried through the skin and into the subcutaneous tissue. Once in the subcutaneous space, the deep subareolar abscess was encountered. The abscess cavity contained a thick, myron olate colored, grossly purulent, and extremely foul-smelling fluid. Swabs of this fluid were taken and submitted to the laboratory for both Gram stain and aerobic/anaerobic cultures. The pus was then thoroughly evacuated from the cavity. Upon widely draining the cavity, the cavity was also found to contain a significant amount of inspissated sebaceous material. The wall of the irregularly lobulated cavity was found to be markedly thickened, indurated, and fibrotic, and was seen to be lined by a glistening white membrane. The apex of the cavity led directly to the left nipple, involving the major mammary ducts. Prior to drainage, purulent fluid was expressible from the left nipple. The abscess site was widely debrided circumferentially. In establishing peripheral margins, the tissue was cut back to healthy breast tissue along all deep and lateral margins. The wall of the abscess was shaved away from the underside of the left nipple areolar complex. This necessitated resection of the major mammary ducts behind the nipple. The resected specimen is considered an open incisional biopsy of this abnormal subareolar breast tissue. The specimen was placed into an appropriately labeled container, and submitted to pathology for gross and microscopic examination. The operative site was copiously irrigated. The wound was rendered hemostatic. The abscess cavity was packed open using a saline moistened 4 x 4 gauze packing. This was then covered over by absorbent 4 x 4 gauze squares. The operative procedure was completed at 1155 hrs. At the completion of the procedure all sponge, needle, and instrument counts were correct. Estimated blood loss for the procedure was 20 mL. The patient tolerated this mastotomy incision, drainage, and wide debridement of a chronic nonpuerperal deep subareolar abscess of the left breast with open incisional biopsy of abnormal subareolar breast tissue, well. There were no operatively related complications. Patient was awakened and taken to the postanesthesia care unit in satisfactory condition. Following recovery from anesthesia, this patient will remain hospitalized on the hospitalist service for continued administration of IV antibiotics while awaiting culture results. Arrangements will need to be made in this case for home health to provide active wound management until such time as the abscess site has healed by secondary intent. Dimitri Gil MD Mine Car Repairer: Trudi Arechiga Estimated blood loss (mL): 20 Specimens: Chronic abscess cavity and associated chronically inflamed left subareolar breast tissue, including the major mammary ducts - LEFT breast Complications: No Pathology: other (Left breast -- Chronic abscess cavity and associated chronically inflamed left subareolar breast tissue, including the major mammary ducts) Condition: stable Disposition: floor
[2023-04-30] MEDS: OXYCODONE HCL/ACETAMINOPHEN 5MG/325MG 2 TAB PO (19:04)
[2023-04-30] MEDS: L. ACIDOPHILUS/L.BULGARICUS 1 PACKET GRAN.PACK PO (21:53)
[2023-04-30] MEDS: MORPHINE SULFATE 4 MG/ML VIAL IV (21:53)
[2023-05-01] MEDS: VANCOMYCIN HCL 1,000 MG in 0.9 % SODIUM CHLORIDE 250 ML 250 MG IV ×4 (01:00→21:01)
[2023-05-01] MEDS: OXYCODONE HCL/ACETAMINOPHEN 5MG/325MG 2 TAB PO ×2 (01:07→10:40)
[2023-05-01] MEDS: LACTATED RINGER'S SOLUTION 1,000 ML 100 ML IV ×2 (01:08→14:05)
[2023-05-01] MEDS: IMIPENEM/CILASTATIN SODIUM 1,000 MG in 0.9 % SODIUM CHLORIDE 100 ML 100 MG IV (03:40)
[2023-05-01] MEDS: MORPHINE SULFATE 4 MG/ML VIAL IV ×2 (03:40→08:03)
[2023-05-01 03:48] VITALS: BP 119/72; PULSE 64; RESP 18; TEMP 36.7; O2SAT 94
[2023-05-01 05:17] LABS: Basophils Percent Auto 0.1 % (0.2-2.0); Hematocrit 33.2 % (36.0-48.0); Immature Granulocytes Abs Auto 0.05 10^3/uL (0.00-0.03); Immature Granulocytes Pct Auto 0.5 % (0.0-0.5); Lymphocytes Absolute Auto 1.1 10^3/uL (1.2-3.8); Lymphocytes Percent Auto 10.6 % (20.5-60.0); Mean Corpuscular HGB Conc 33.1 g/dL (29.9-35.2); Mean Corpuscular Hemoglobin 30.5 pg (26.7-34.0); Mean Platelet Volume 11.1 fL (9.5-13.5); Monocytes Absolute Auto 0.4 10^3/uL (0.3-0.8); Monocytes Percent Auto 3.5 % (1.7-12.0); Neutrophils Absolute Auto 8.7 10^3/uL (1.4-6.5); Neutrophils Percent Auto 85.3 % (43.0-75.0); Platelet Count 164 10^3/uL (150-450); Red Blood Count 3.61 10^6/uL (4.20-5.40); Red Cell Distribution Width 13.2 % (11.0-15.0); White Blood Count 10.2 10^3/uL (4.0-11.0)
[2023-05-01 05:39] LABS: Alanine Aminotransferase 12 U/L (14-59); Albumin Globulin Ratio 0.8; Albumin Level 2.6 g/dL (3.4-5.0); Alkaline Phosphatase 47 U/L (46-116); Aspartate Amino Transferase 11 U/L (15-37); BUN Creatinine Ratio 11.6; Bilirubin Total 0.3 mg/dL (0.2-1.0); Calcium 8.6 mg/dL (8.5-10.1); Carbon Dioxide 27.1 mmol/L (21.0-32.0); Chloride 101 mmol/L (98-107); Estimated GFR (African America >60 (>=60); Estimated GFR (Non-African Ame >60 (>=60); Globulin 3.3 g/dL; Glucose 118 mg/dL (74-106); Potassium 4.1 mmol/L (3.5-5.1); Sodium 134 mmol/L (136-145); Total Protein 5.9 g/dL (6.4-8.2)
[2023-05-01 05:44] LABS: Vancomycin Trough 15.6 ug/mL (5.0-20.0)
[2023-05-01] MEDS: ONDANSETRON PF 4 MG/2 ML VIAL IV (08:03)
[2023-05-01] MEDS: AZTREONAM 1,000 MG in 0.9 % SODIUM CHLORIDE 50 ML 100 MG IV ×2 (10:40→17:42)
--- NOTE | 2023-05-01 13:06 | PM.GSPN ---
Progress Note: A&P Assessment and Plan (1) Breast abscess: Assessment and Plan: 1) Begin daily wound packing/active wound management 2) Awaiting culture results to tailor oral antimicrobial therapy at discharge 3) Upon discharge this patient will require either outpatient hospital-based nursing services or home health services to perform daily dressing changes to the abscess site until such time as the site has fully healed by secondary intent Subjective Subjective Interval history: General Surgery?Postoperative Day #1 Patient is seen and evaluated at 1200 noon 05/01/2023. 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 At surgery, the chronic abscess cavity was found to contain a significant amount of inspissated sebaceous material. The wall of the irregularly lobulated cavity was markedly thickened, indurated, and fibrotic, and was seen to be lined by a glistening white membrane. The apex of the cavity led directly to the left nipple, involving the major mammary ducts. The entire abscess cavity including the major mammary ducts, was excised. Aerobic and anaerobic cultures were taken at the time of drainage. Today, the patient looks remarkably better. She reports significantly less pain and tenderness in the left breast than she had been experiencing preoperatively. Most of the erythema has now faded, and the cellulitis has receded significantly. The previous abscess site is packed open, and the wound is being actively managed. On evaluation, the patient is afebrile. She is not tachycardic or hypertensive. White blood cell count is in the normal range at 10,200. Gram stain and culture results are pending. The patient remains on IV vancomycin and aztreonam. Imipenem was discontinued by the hospitalist this morning. A little later this afternoon, the nursing staff will perform the first dressing change, and repack the wound. This open wound will require active wound management until such time as the site has fully healed by secondary intent. This will require that the patient either come into the hospital daily as an outpatient, for wound packing; or that arrangements be made for home health services to change the patient's dressing on a daily basis. Exam Constitutional Vital Signs, click to edit/add: Last Vital Signs Temp 98.0 F 05/01/23 03:48 Pulse 64 05/01/23 03:48 Resp 18 05/01/23 03:48 BP 119/72 05/01/23 03:48 Pulse Ox 94 L 05/01/23 03:48 O2 Del Method Room Air 05/01/23 03:48 Other: Resting comfortably. No apparent distress. Chest Other: The subareolar left breast incision, drainage, and debridement site shows the surgical dressing to be intact. With the dressing removed, the breast is no longer erythematous, nor does it exhibit significant cellulitis. The periareolar incision which extends from the 7:00 to the 12 o'clock position, is open and packed. There is no active hemorrhage. There is no purulent or malodorous drainage. The nipple areolar complex appears well vascularized and remains viable. There is mild tenderness of the breast with manipulation. Respiratory Other: Lungs are clear to auscultation bilaterally Cardio Other: Heart regular rate and rhythm Extremity Other: The left upper extremity shows no swelling, lymphedema, or limitation in range of motion.
--- NOTE | 2023-05-01 13:20 | P.IMPN_ITS ---
Progress Note: A&P Assessment and Plan (1) Breast abscess: Assessment and Plan: left breast abscess. Failed outpatient oral abx. S/p I&D on 04/30/23 Wound and Or cx are not back On IV vancomycin and aztreonam due to PCN allergy, worsening cellulitis/abscess while on bactrim and keflex. Seen by General Surgery. She will need daily dressing change. C/w IV abx for another day. Possible d/c tomorrow once cultures are back. (2) Tobacco dependence: Internal Medicine - PN: Subj Subjective Interval history: Seen and examined. Reports worsening pain in her breast. Could not sleep last night. No overnight events. Exam Constitutional Vital Signs, click to edit/add: Last Vital Signs Temp 98.0 F 05/01/23 03:48 Pulse 64 05/01/23 03:48 Resp 18 05/01/23 03:48 BP 119/72 05/01/23 03:48 Pulse Ox 94 L 05/01/23 03:48 O2 Del Method Room Air 05/01/23 03:48 Documenting provider has reviewed patient's vital signs: yes Common normals: no apparent distress and oriented x3 General appearance: cooperative HENMT Common normals: normocephalic and head/scalp atraumatic Head and scalp: normocephalic and atraumatic Eye Common normals: conjunctivae normal and no scleral icterus Conjunctiva: conjunctiva(e) normal Chest Breast/axilla palpation: other (left breast - surgical wound with dressing in place. ) Respiratory Common normals: normal respiratory effort and clear to auscultation bilaterally Effort & inspection: able to speak in complete sentences Auscultation: clear to auscultation bilaterally Cardio Common normals: regular rate, S1 normal heart sound and S2 normal heart sound Rate: regular rate Heart sounds: S1 normal and S2 normal Extremity Common normals: no clubbing, cyanosis or edema Neuro Common normals: oriented x3, moves all extremities and no focal motor deficits Psych Common normals: mental status grossly normal, denies hallucinations, denies homicidal ideation and denies suicidal ideation Internal Medicine - PN: Obj Da Labs Labs: Laboratory Results - last 24 hr 05/01/23 04:34 WBC 10.2 RBC 3.61 L Hgb 11.0 L Hct 33.2 L MCV 92.0 MCH 30.5 MCHC 33.1 RDW 13.2 Plt Count 164 MPV 11.1 Neut % (Auto) 85.3 H Lymph % (Auto) 10.6 L [place] % (Auto) 3.5 Eos % (Auto) 0.0 L Baso % (Auto) 0.1 L Neut # (Auto) 8.7 H Lymph # (Auto) 1.1 L [place] # (Auto) 0.4 Eos # (Auto) 0.0 Baso # (Auto) 0.0 Abs Immat Gran (auto) 0.05 H Imm/Tot Granulo (auto) 0.5 Sodium 134 L Potassium 4.1 Chloride 101 Carbon Dioxide 27.1 Anion Gap 10.0 BUN 8.0 Creatinine 0.69 Est GFR ( Amer) >60 Est GFR (Non-Af Amer) >60 BUN/Creatinine Ratio 11.6 Glucose 118 H Calcium 8.6 Total Bilirubin 0.3 AST 11 L ALT 12 L Alkaline Phosphatase 47 Total Protein 5.9 L Albumin 2.6 L Globulin 3.3 Albumin/Globulin Ratio 0.8 Vancomycin Trough 15.6
[2023-05-01 14:05] VITALS: BP 105/72; PULSE 83; RESP 16; TEMP 36.5; O2SAT 98
[2023-05-01] MEDS: NICOTINE 21 MG PATCH TD (14:05)
[2023-05-01] MEDS: OXYCODONE HCL/ACETAMINOPHEN 5MG/325MG 1 TAB PO ×2 (15:15→19:38)
[2023-05-01 21:00] VITALS: BP 124/76; PULSE 70; RESP 18; TEMP 36.6; O2SAT 98
[2023-05-01] MEDS: L. ACIDOPHILUS/L.BULGARICUS 1 PACKET GRAN.PACK PO (21:01)
[2023-05-01 22:00] VITALS: BP 102/65; PULSE 68; RESP 16; TEMP 36.6; O2SAT 97
[2023-05-02] MEDS: LACTATED RINGER'S SOLUTION 1,000 ML 100 ML IV (01:41)
[2023-05-02] MEDS: AZTREONAM 1,000 MG in 0.9 % SODIUM CHLORIDE 50 ML 100 MG IV ×2 (01:41→10:45)
[2023-05-02] MEDS: OXYCODONE HCL/ACETAMINOPHEN 5MG/325MG 1 TAB PO ×3 (03:47→10:34)
[2023-05-02] MEDS: VANCOMYCIN HCL 1,000 MG in 0.9 % SODIUM CHLORIDE 250 ML 250 MG IV (05:24)
[2023-05-02 05:27] LABS: Basophils Percent Auto 0.3 % (0.2-2.0); Eosinophils Percent Auto 0.3 % (0.9-7.0); Hematocrit 32.6 % (36.0-48.0); Hemoglobin 10.5 g/dL (12.0-16.0); Immature Granulocytes Abs Auto 0.02 10^3/uL (0.00-0.03); Immature Granulocytes Pct Auto 0.3 % (0.0-0.5); Lymphocytes Absolute Auto 2.8 10^3/uL (1.2-3.8); Lymphocytes Percent Auto 37.3 % (20.5-60.0); Mean Corpuscular HGB Conc 32.2 g/dL (29.9-35.2); Mean Corpuscular Hemoglobin 30.3 pg (26.7-34.0); Mean Corpuscular Volume 94.2 fL (81.0-99.0); Mean Platelet Volume 11.5 fL (9.5-13.5); Monocytes Absolute Auto 0.4 10^3/uL (0.3-0.8); Monocytes Percent Auto 5.8 % (1.7-12.0); Neutrophils Absolute Auto 4.2 10^3/uL (1.4-6.5); Platelet Count 161 10^3/uL (150-450); Red Blood Count 3.46 10^6/uL (4.20-5.40); Red Cell Distribution Width 13.4 % (11.0-15.0); White Blood Count 7.5 10^3/uL (4.0-11.0)
[2023-05-02 05:45] LABS: Alanine Aminotransferase 15 U/L (14-59); Albumin Globulin Ratio 0.9; Albumin Level 2.7 g/dL (3.4-5.0); Alkaline Phosphatase 43 U/L (46-116); Anion Gap 4.8; Aspartate Amino Transferase 15 U/L (15-37); BUN Creatinine Ratio 15.2; Bilirubin Total 0.1 mg/dL (0.2-1.0); Calcium 8.6 mg/dL (8.5-10.1); Carbon Dioxide 30.3 mmol/L (21.0-32.0); Chloride 103 mmol/L (98-107); Estimated GFR (African America >60 (>=60); Estimated GFR (Non-African Ame >60 (>=60); Globulin 2.9 g/dL; Glucose 87 mg/dL (74-106); Potassium 4.1 mmol/L (3.5-5.1); Sodium 134 mmol/L (136-145); Total Protein 5.6 g/dL (6.4-8.2)
[2023-05-02 06:00] VITALS: BP 116/71; PULSE 54; RESP 16; TEMP 37; O2SAT 92
[2023-05-02] MEDS: MORPHINE SULFATE 4 MG/ML VIAL IV (06:04)
[2023-05-02] MEDS: ONDANSETRON PF 4 MG/2 ML VIAL IV (08:08)
--- NOTE | 2023-05-02 10:25 | PC.NURSE ---
Patient's dressing had fallen off at some point through the night. RN got supplies to change the dressing. Saline soaked gauze was removed from wound. serosangenous colored drainage noted on the gauze that was removed. RN then took clean sterile saline soaked gauze and repacked the wound with 1 piece of 4x4 gauze. Once packed wound was covered with dry gauze and abd. Taped into place. Once dressing change was completed patient was assisted to put supportive bra on per physician order. Patient tolerated dressing change well with complaints of pain but tolerable.
--- NOTE | 2023-05-02 12:50 | P.DS_ITS ---
DS: Providers Provider Date of admission: 04/29/23 14:46 Primary care physician: Non-Staff Physician, Consults: 04/29/23 14:47 Consult to General Surgeon Routine Consulting Provider: Dimitri Gil Reason for consultation: left breast abscess Has provider been notified: Yes 04/29/23 15:22 Consult to General Surgeon Routine Consulting Provider: Dimitri Gil Reason for consultation: L breast abscess Attending physician on discharge: Shaikh Fiona Discharging clinician: Shaikh Fiona Anticipated date of discharge: 05/02/23 DS: Diagnosis Discharge Diagnosis (1) Breast abscess: Assessment and plan: s/p Incision and drainage. Cultures still pending. Empirically treat with oral Clindamycin to cover for MRSA, Anaerobes and Levaquin to cover Gram negative yesenia pseudomonas. Needs daily dressing. Patient will be set up for it by RN discharging her. (2) Tobacco dependence: Assessment and plan: Discussed smoking cessation. Defer to PCP for treatment DS: Summary Hospital Course Hospital Course: Patient presented with left breast pain/swelling after she had I&D in ED and prescribed oral abx - with worsening pain/swelling, admitted for IV abx as she failed oral abx therapy. Taken to OR, had I&D performed. Cultures still pending. However, patient subjectively improving, feeling better. Will d/c patient on oral Levaquin and Clindamycin She will need to f/u with PCP in one week and general surgery in 1-2 weeks Time spent discussing smoking cessation with patient: 3 to 10 minutes Status at Discharge Functional status at discharge: independent ambulation Overall status at discharge: patient is back to baseline Time Spent with Patient Time attestation: Total time spent providing and/or coordinating discharge services: Time spent: greater than 30 minutes Exam Constitutional Vital Signs, click to edit/add: Last Vital Signs Temp 98.6 F 05/02/23 06:00 Pulse 54 L 05/02/23 06:00 Resp 16 05/02/23 06:00 BP 116/71 05/02/23 06:00 Pulse Ox 92 L 05/02/23 06:00 O2 Del Method Room Air 05/02/23 06:00 Documenting provider has reviewed patient's vital signs: yes Common normals: no apparent distress and oriented x3 General appearance: cooperative HENMT Common normals: normocephalic and head/scalp atraumatic Head and scalp: normocephalic and atraumatic Eye Common normals: conjunctivae normal and no scleral icterus Conjunctiva: conjunctiva(e) normal Chest Breast/axilla palpation: other (left breast - surgical wound with dressing in place. ) Respiratory Common normals: normal respiratory effort and clear to auscultation bilaterally Effort & inspection: able to speak in complete sentences Auscultation: clear to auscultation bilaterally Cardio Common normals: regular rate, S1 normal heart sound and S2 normal heart sound Rate: regular rate Heart sounds: S1 normal and S2 normal Extremity Common normals: no clubbing, cyanosis or edema Neuro Common normals: oriented x3, moves all extremities and no focal motor deficits Psych Common normals: mental status grossly normal, denies hallucinations, denies homicidal ideation and denies suicidal ideation DS: Data Data Completed and Pending Labs on day of discharge: Labs from last 24 hours 05/02/23 04:15 WBC 7.5 RBC 3.46 L Hgb 10.5 L Hct 32.6 L MCV 94.2 MCH 30.3 MCHC 32.2 RDW 13.4 Plt Count 161 MPV 11.5 Neut % (Auto) 56.0 Lymph % (Auto) 37.3 [place] % (Auto) 5.8 Eos % (Auto) 0.3 L Baso % (Auto) 0.3 Neut # (Auto) 4.2 Lymph # (Auto) 2.8 [place] # (Auto) 0.4 Eos # (Auto) 0.0 Baso # (Auto) 0.0 Abs Immat Gran (auto) 0.02 Imm/Tot Granulo (auto) 0.3 Sodium 134 L Potassium 4.1 Chloride 103 Carbon Dioxide 30.3 Anion Gap 4.8 BUN 10.0 Creatinine 0.66 Est GFR ( Amer) >60 Est GFR (Non-Af Amer) >60 BUN/Creatinine Ratio 15.2 Glucose 87 Calcium 8.6 Total Bilirubin 0.1 L AST 15 ALT 15 Alkaline Phosphatase 43 L Total Protein 5.6 L Albumin 2.7 L Globulin 2.9 Albumin/Globulin Ratio 0.9 Preliminary micro results at discharge 04/30/23 11:30 Wound Culture - Preliminary Breast Left 04/29/23 11:20 Wound Culture - Preliminary Breast - Abscess 04/29/23 14:36 - Preliminary Blood 04/29/23 14:25 Blood Culture Result 1 - Preliminary Blood Discharge Plan Discharge Disposition: Home, Self-Care Condition: Good Discharge Medications: New clindamycin HCl 300 mg capsule 300 mg PO Q8H 7 Days Qty: 21 0RF levofloxacin 750 mg tablet 750 mg PO DAILY 7 Days Qty: 7 0RF oxycodone 5 mg tablet 5 mg PO Q8H PRN (Reason: pain) 4 Days Qty: 10 0RF ibuprofen 600 mg tablet 600 mg PO Q8H PRN (Reason: pain) Qty: 30 0RF Discontinued sulfamethoxazole-trimethoprim [Bactrim DS] 800-160 mg tablet 1 tab PO BID 10 Days Qty: 20 0RF cephalexin 500 mg capsule 500 mg PO QID 10 Days Qty: 40 0RF Hold Instructions: due to being in hospital Activity: increase activity as tolerated and resume usual activities as tolerated Diet: advance to your usual diet Forms: Portal Instructions Follow Up Appointments: F/u with General Surgery in 2 weeks F/u PCP in one week
--- NOTE | 2023-05-02 13:11 | PM.GSPN ---
Progress Note: A&P Assessment and Plan (1) Breast abscess: Plan 1) Ongoing active wound management 2) Awaiting culture results to tailor oral antimicrobial therapy for discharge 3) It is anticipated that the hospitalist will likely discharge the patient this afternoon 4) Upon discharge the patient will require outpatient hospital-based nursing services to perform daily dressing changes to the abscess site until such time as the site has fully healed by secondary intent 5) Patient is instructed to follow-up with Dr. Neeraj Owusu in his office in approximately 10 to 14 days to ensure adequate wound healing Subjective Subjective Interval history: General Surgery?Postoperative Day #2 Patient is seen and evaluated at 1145 hrs. 05/02/2023. 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 At surgery, the chronic abscess cavity was found to contain a significant amount of inspissated sebaceous material. The wall of the irregularly lobulated cavity was markedly thickened, indurated, and fibrotic, and was seen to be lined by a glistening white membrane. The apex of the cavity led directly to the left nipple, involving the major mammary ducts. The entire abscess cavity including the major mammary ducts, was excised. Aerobic and anaerobic cultures were taken at the time of drainage are pending. Today, the patient looks quite good. She reports [id number] pain or tenderness in the left breast other than with dressing changes. The erythema has now faded, and the cellulitis is receding. The previous abscess site is packed open, and the wound is being actively managed. The patient reports tolerating repacking of the wound well. The patient remains is afebrile. She is not tachycardic or hypertensive. White blood cell count is normal at 7500. Gram stain has not yet been reported out. Culture results are pending. The patient remains on IV vancomycin and aztreonam. The open wound will require ongoing active wound management until such time as the site has fully healed by secondary intent. Arrangements have been made for the patient to come into the hospital daily as an outpatient following discharge, for wound packing. Exam Narrative Exam Narrative: Constitutional: Resting comfortably. No apparent distress. Chest: The subareolar left breast incision, drainage, and debridement site shows the surgical dressing to be intact. There are no signs of surgical site infection. The erythema has resolved, and significant recession of cellulitis. The periareolar incision which extends from the 7:00 to the 12 o'clock position, is open and packed. There is no active hemorrhage. There is no purulent or malodorous drainage. The nipple areolar complex appears well vascularized and remains viable. There is minimal tenderness of the breast with manipulation. Respiratory: Lungs are clear to auscultation bilaterally Cardio: Heart regular rate and rhythm Extremity: The left upper extremity shows no swelling, lymphedema, or limitation in range of motion. Constitutional Vital Signs, click to edit/add: Last Vital Signs Temp 98.6 F 05/02/23 06:00 Pulse 54 L 05/02/23 06:00 Resp 16 05/02/23 06:00 BP 116/71 05/02/23 06:00 Pulse Ox 92 L 05/02/23 06:00 O2 Del Method Room Air 05/02/23 06:00
== END 2023-05-02 14:00 | disposition home or self-care (01) | DRG 585 ==
LOC: ER 14:20 → MS 14:54
PROVIDERS: Nurse Practitioner; Surgery; Admitting Provider Internal Medicine; Emergency Provider Emergency Medicine; Visit Provider Internal Medicine
PROC: 0HBU0ZZ Excision of Left Breast, Open Approach (ICD-10-PCS; principal; 2023-04-30 10:30)
DX: N61.1 Abscess of the breast and nipple (principal); F17.200 Nicotine dependence, unspecified, uncomplicated; Z88.0 Allergy status to penicillin
CPT/HCPCS: 36415; 76642; 80053; 80202; 83605; 84703; 85025; 85652; 86140; 87040; 87070; 87076; 88304; 96365; 96366; 96367; 96375; 96376; 99285; 99999; J2704; J3370

== ENCOUNTER 2023-05-26 07:35 | Outpatient (RCR) | payer OTHER, SELFPAY ==
[2023-05-03 11:50] VITALS: BP 131/82; PULSE 65; RESP 16; TEMP 37; O2SAT 95
--- NOTE | 2023-05-03 12:58 | PC.NURSE ---
1150: Arrived to department for wound care. Pleasant and conversive. Pt. c/o 01/04 burning type pain to left breast area. States she has been taking OTC pain reliever as well as prescribed pain relievers at home. Denies need for additional pain medication. Dressing to left breast intact with a quarter-sized area of reddish-brown drainage noted on the distal edge. Tape and ABD removed; skin under tape intact. Packing gauze dampened and removed easily from walnut-sized wound on medial aspect of breast in close proximity to areola. No odor or drainage noted; wound is beefy red. Wound packed with one fluffed and saline moistened gauze 4x4 and covered with a dry 4x4 and ABD. Dressing secured with paper tape as per patient's request. Tolerated the procedure well. Denies additional needs. Discharged ambulatory to private vehicle.
[2023-05-05 11:18] VITALS: BP 126/82; PULSE 75; RESP 16; TEMP 36.6; O2SAT 98
--- NOTE | 2023-05-05 11:25 | PC.NURSE ---
1048: Pt to [facility] amb. for daily dressing change to left breast. Seated in recliner. VSS. Pain level 6-7 07/07 to breast wound. Old dressing and packing removed from breast. Nickel sized amount of serous drainage observed on dressing. Packing to wound moistened before removing. Dressing covered with serous drainage. Pt. c/o severe pain with removal. See wound documentation for details. Wound bed flushed with saline and packed with fluffed saline soaked 4x4. Covered with dry 4x4 and ABD dressing. Secured with paper tape. Pt. relays less pain after dressing in place. Pt denies needs. Reviewed antibiotics with patient and encouraged pt. to ask M.D. at follow up tomorrow if pt. on appropriated antibiotic therapy based on wound culture results. Pt. relays understanding. 1105: Pt. d/c'd amb. to home
[2023-05-06 11:36] VITALS: BP 128/87; PULSE 79; RESP 16; TEMP 37.1; O2SAT 97
--- NOTE | 2023-05-06 11:38 | PC.NURSE ---
1055: Pt. to [facility] amb. for daily dressing change. Seated in recliner. VSS. Old dressing to left breast removed. Small amount of serous drainage observed on outer dressing. Packing removed and with moderate amount serosanguineous drainage noted. Dimensions as noted in wound assessment. Wound flushed with saline irrigation. Packed with saline soaked, fluffed 4x4. Covered with dry 4x4's x's 2 and covered with ABD dressing. Secured with paper tape. Pt. tolerated with minimal c/o discomfort. 1105: Pt. denies needs or c/o at this time. D/c'd amb to home.
[2023-05-07 10:50] VITALS: BP 105/69; PULSE 85; RESP 16; TEMP 36.8; O2SAT 96
--- NOTE | 2023-05-07 15:01 | PC.NURSE ---
Addendum entered by Lance Donnelly RN 05/07/23 15:25: depth of tunneling is 4cm, not as documented at 7 cm Original Note: arrival ambulatory to chair. alert oriented. dressing removed from left breast wound near medial aspect of nipple. packing removed old packing had mucopurulent drainage, no odor noted. irrigated wound with NSS, cleansed skin surrounding wound with soap and water. skin prep applied to intact skin around open wound. repacked wound with approx 1/2 of opened fluffed 4x4 moistened with sterile saline, patient tolereated well, covered wound with DSD, secured in place with paper tape. tolerated well, released ambulatory. Wound measurements 7cm deep, tunneling upward, approx 2.4 cm opening from proximal to distal edge of wound and 1.4 cm in diameter across wound opening.
[2023-05-08 11:01] VITALS: BP 113/73; PULSE 98; RESP 18; TEMP 37.2; O2SAT 96
--- NOTE | 2023-05-08 12:14 | PC.NURSE ---
Patient alert and oriented. Dressing was removed from L breast wound. Old packing had scant mucopurulent drainage. Wound was irrigated with NS. Repacked wound with fluffed 4x4 moistened with sterile saline. Patient tolerated well. Wound covered with DSD. Wound measurements 7cm deep. Approx. 2.4 cm opening and 1.4 cm in diameter across wound opening.
[2023-05-10 11:30] VITALS: BP 112/82; PULSE 78; RESP 16; TEMP 36.6; O2SAT 98
--- NOTE | 2023-05-10 11:31 | PC.NURSE ---
1118: Pt. to [facility] amb. per self. Seated in recliner. VSS. Old dressing to left breast dry and intact. Removed. Small amount seorosang. drainage observed. Packing moistened, then removed. Packinig with mod. amount serosang. drainage. Wound bed irrigated with normal saline. Packed with saline moistened sterile 4x4, covered with dry 4x4 and ABD dressing. Secured with paper tape. Pt. tolerated with minimal c/o pain. 1128: D/c'd amb. to home.
[2023-05-11 13:01] VITALS: BP 144/92; PULSE 84; RESP 16; TEMP 36.8; O2SAT 98
--- NOTE | 2023-05-11 13:04 | PC.NURSE ---
1150: Pt. to [facility] amb. for daily dressing change. Seated in recliner. VSS. Old dressing to left breast removed. Small amount serous drainage observed on 4x4 dressing. Packing from open wound with moderate amount serosang. drainage. Moistened with saline before packing removed. Wound bed beefy red. Edges becoming more pronounced. No active drainage or foul odor observed. Wound cleansed with saline. Packed with saline moistened 4x4 cut in half. Covered with sterile dry 4x4 and ABD dressing. Secured with paper tape. Pt. tolerated with minimal c/o discomfort. 1202: D/c'd amb. to home.
--- NOTE | 2023-05-12 11:35 | PC.NURSE ---
1100 arrival ambulatory. patient informed staff she has appt at [address] Owusu. patient is going to this appt with Dr. Owusu, if the office does dressing change, she will call us back, if they do not complete dressing change in office she will be back for dressing change.
[2023-05-13 11:49] VITALS: BP 150/76; PULSE 65; RESP 18; TEMP 36.7; O2SAT 98
[2023-05-17 12:55] VITALS: BP 105/73; PULSE 63; RESP 16; TEMP 36.6; O2SAT 98
--- NOTE | 2023-05-17 13:10 | PC.NURSE ---
1115: Pt. to [facility] amb. per self. Seated in recliner. VSS. Old dressing to left breast removed. Small amount serosang. drainage noted to inner packing. Wound bed beefy red. Single dissolvable suture noted near nipple. Irrigated wound with saline and gently packed with saline soaked 2x2 gauze dressing. Covered with dry 2x2 and ABD pad. Secured in place with patients bra per instruction from Dr. Owusu. Pt. tolerated with minimal c/o discomfort. 1125: D/c'd amb. to home.
--- NOTE | 2023-05-19 11:51 | PC.NURSE ---
1110: Pt. to [facility] amb. for daily dressing change. Seated in recliner. VSS. Dressing and packing removed from left breast wound. Small amount serosang. drainage noted to dressings. Wound bed beefy red with no active drainage observed. Wound cleansed with saline irrigant. Packed with saline soaked 2x2 and covered with ABD dressing. Secured in place with patients bra. Pt. tolerated with no c/o pain. 1117: D/c'd amb to home.
--- NOTE | 2023-05-22 12:05 | PC.NURSE ---
Patient was having pain on the left side of her breast. Stated that this is how it feels when I start to get an abscess. Patient had some purulent drainage from the wound along with some odor. Dressing changed, patient tolerated the procedure well.
--- NOTE | 2023-05-23 14:08 | PC.NURSE ---
Patient stated that yesterday she had purulent, yellow drainage from wound. [employer] did not notice any drainage today. Wound bed beefy red, no redness noted around wound and scant amount of bloody drainage noted on old dressing.
--- NOTE | 2023-05-24 11:42 | PC.NURSE ---
1050: Pt. to [facility] amb. for daily dressing change. Seated in recliner. Dressing from left breast removed and dry. Gauze packing removed and scant amount serosang. drainage noted. Wound bed beefy red with no active drainage or bleeding observed. Flushed with saline irrigant. Packed with fluffed saline soaked 4x4 anc covered with ABD. Secured in place with bra. Pt. tolerated with no c/o pain. 1055: D/c'd amb to home
--- NOTE | 2023-05-25 14:50 | PC.NURSE ---
1125: Pt. to [facility] for daily dressing change. Seated in recliner. Dressing removed from left breast. Outer ABD dry. 2x2 packing removed from wound bed. Small amount serous drainage noted. Wound beefy red with no drainage or odor observed. Wound irrigated with saline. Loosely packed with saline soaked 2x2, covered with ABD dressing and held in place with bra. Pt. tolerated with min. c/o. 1133: D/c'd amb to home.
--- NOTE | 2023-05-26 12:20 | PC.NURSE ---
Arrival ambulatory, no packing in wound, patient showered before arrival. Dr. Owusu examines wound on left breast. Dr. Owusu discontinued dressing changes, instructed patient to wash and rinse wound, apply dsd held in place by bra.
== END 2023-05-27 23:59 | disposition home or self-care (01) ==
LOC: INF 07:35
PROVIDERS: Visit Provider Internal Medicine
DX: N61.1 Abscess of the breast and nipple (principal)

== ENCOUNTER 2023-06-02 10:04 | Observation (INO) | payer OTHER, SELFPAY ==
[2023-06-02 10:08] VITALS: BP 142/97; PULSE 116; RESP 20; TEMP 36.8; O2SAT 99; BMI 29.2
--- NOTE | 2023-06-02 10:34 | PC.NURSE ---
Pt here today for eval of R breast infection that just started the last few days. Just got over having surgery on L breast infection by Dr Owusu and her milk ducts were removed. L breast is not draining, is pink and dry. R breast to L of nipple is red, inflamed and appears to have dried drainage on it. Pt came in today bc pain was becoming unbearable. Sees Dr OWUSU today at 4pm but office told pt to come to ER for tx.
[2023-06-02 10:35] LABS: Basophils Absolute Auto 0.1 10^3/uL (0.0-0.1); Basophils Percent Auto 0.4 % (0.2-2.0); Eosinophils Percent Auto 0.2 % (0.9-7.0); Hematocrit 41.8 % (36.0-48.0); Hemoglobin 14.1 g/dL (12.0-16.0); Immature Granulocytes Abs Auto 0.06 10^3/uL (0.00-0.03); Immature Granulocytes Pct Auto 0.5 % (0.0-0.5); Lymphocytes Percent Auto 22.5 % (20.5-60.0); Mean Corpuscular HGB Conc 33.7 g/dL (29.9-35.2); Mean Corpuscular Hemoglobin 30.8 pg (26.7-34.0); Mean Corpuscular Volume 91.3 fL (81.0-99.0); Mean Platelet Volume 11.3 fL (9.5-13.5); Monocytes Absolute Auto 0.5 10^3/uL (0.3-0.8); Neutrophils Absolute Auto 9.5 10^3/uL (1.4-6.5); Neutrophils Percent Auto 72.4 % (43.0-75.0); Platelet Count 161 10^3/uL (150-450); Red Blood Count 4.58 10^6/uL (4.20-5.40); Red Cell Distribution Width 14.7 % (11.0-15.0); White Blood Count 13.1 10^3/uL (4.0-11.0)
[2023-06-02] MEDS: 0.9 % SODIUM CHLORIDE 1,000 ML 1000 ML IV (10:40)
[2023-06-02 10:43] LABS: HCG Qualitative NEGATIVE (NEGATIVE)
[2023-06-02 10:52] LABS: Lactate/Lactic Acid 1.8 mmol/L (0.4-2.0)
--- NOTE | 2023-06-02 10:57 | US_ITS ---
Patient Name: WADE LOPEZ MR#: [id number] : 1985 Exam Date: 06/02/2023 Ordering Doctor: Guera Arzate . RADIOLOGY REPORT PROCEDURE: US BREAST RT LIMITED COMPARISON: None. INDICATIONS: swelling and pain TECHNIQUE: Breast ultrasound was performed, with evaluation focusing only on specific areas of concern. FINDINGS: Ultrasound demonstrates a corresponding to the patient's pain and palpable mass an avascular heterogeneous 3.9 x 2.5 x 1.5 cm oval complex lesion. Peripheral hypervascularity is observed. RECOMMENDATIONS: 3.9 cm heterogeneous avascular mass corresponding to the patient's palpable abnormality. An abscess should be considered PLEASE NOTE: A NORMAL ULTRASOUND EXAMINATION DOES NOT EXCLUDE THE POSSIBILITY OF BREAST CANCER. A CLINICALLY SUSPICIOUS PALPABLE LUMP SHOULD BE BIOPSIED. Dictated by: Gage Brownlee MD on 06/02/2023 at 12:30 Approved by: Gage Brownlee MD on 06/02/2023 at 12:32
[2023-06-02 11:00] LABS: Alanine Aminotransferase 20 U/L (14-59); Albumin Level 3.9 g/dL (3.4-5.0); Alkaline Phosphatase 74 U/L (46-116); Anion Gap 13.9; Aspartate Amino Transferase 12 U/L (15-37); BUN Creatinine Ratio 15.1; Bilirubin Total 0.4 mg/dL (0.2-1.0); Calcium 8.9 mg/dL (8.5-10.1); Carbon Dioxide 23.7 mmol/L (21.0-32.0); Chloride 100 mmol/L (98-107); Estimated GFR (African America >60 (>=60); Estimated GFR (Non-African Ame >60 (>=60); Globulin 3.8 g/dL; Glucose 137 mg/dL (74-106); Potassium 3.6 mmol/L (3.5-5.1); Sodium 134 mmol/L (136-145); Total Protein 7.7 g/dL (6.4-8.2)
[2023-06-02] MEDS: KETOROLAC TROMETHAMINE 30 MG/ML VIAL 15 MG IVP (11:01)
[2023-06-02] MEDS: MORPHINE SULFATE 2 MG/ML SYRINGE IV (11:01)
[2023-06-02] MEDS: CLINDAMYCIN PHOS 300 MG/50 ML PIGGYBACK 100 MG IV (11:01)
[2023-06-02] MEDS: LIDOCAINE HCL 1% 100 MG/10 ML MDV INJ (11:37)
[2023-06-02] MEDS: LEVOFLOXACIN IN DEXTROSE 5 % 750 MG/150 ML IV.SOLN 100 MG IV (11:50)
--- NOTE | 2023-06-02 12:16 | ED.GENADUL1 ---
HPI - General Adult General Chief complaint: Skin/Abscess/Foreign Body Stated complaint: POST OPERATIVE Time Seen by Provider: 06/02/23 10:25 Source: patient Mode of arrival: walk-in Limitations: no limitations History of Present Illness HPI narrative: Is coming to us with a brace to cellulitis and abscess that has been developing over the last week at least since then giving, the patient complaining of severe pain tiredness and she already had a similar presentation almost a month ago to her left breast which she needed IV antibiotic and operative drainage The patient denies any other complaints she is not actively or breast-feeding The patient was supposed to follow-up with her general surgeon for the left breast today but apparently she developed a abscess in the right breast and she came for evaluation Related Data Home Medications Medication Instructions Recorded Confirmed metronidazole 500 mg tablet 500 mg PO BID 06/02/23 06/02/23 Previous Rx's Medication Instructions Recorded ibuprofen 600 mg tablet 600 mg PO Q8H PRN pain #30 tabs 05/02/23 Allergies Allergy/AdvReac Type Severity Reaction Status Date / Time Penicillins Allergy Intermediate Verified 04/29/23 10:45 Review of Systems ROS Status of ROS 10 or more systems reviewed and unremarkable except as noted in history and below PFSH PFS Medical History (Updated 06/02/23 @ 12:16 by Guera Arzate MD) Tobacco dependence ?F17.200 - Nicotine dependence, unspecified, uncomplicated (ICD-10) Cellulitis of breast ?N61.0 - Mastitis without abscess (ICD-10) Breast abscess ?N61.1 - Abscess of the breast and nipple (ICD-10) Family History (Updated 04/29/23 @ 15:53 by Daily Shaw) Father Family history of COPD (chronic obstructive pulmonary disease) Mother Family history of cancer Social History (Updated 04/29/23 @ 15:52 by Daily Shaw) Within the past year, how often did you have a drink containing alcohol: never Score interpretation: A score less than 3 is consistent with normal alcohol consumption. 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 Known occupational exposures/hazards: No Highest level of school completed/degree received: high school graduate Do you want help with school or training: No Are you now , , , , never or living with a partner: In a typical week, how many times do you talk on the telephone with family, friends, or neighbors: 3 or more times per week How often do you get together with friends or relatives: 3 or more times per week How often do you attend jehovah's witness or tenriism services: 4 or more times per year Do you belong to any clubs or organizations such as jehovah's witness groups unions, fraternal or athletic groups, or school groups: no Total score: 3 Score interpretation: A score of greater than or equal to 2 indicates the lowest level of social isolation. Little interest or pleasure in doing things: not at all Feeling down, depressed, or hopeless: not at all Feel stressed/tense/nervous/anxious/difficulty sleeping: not at all Due to disability, difficulty making decisions: No Do you think of yourself as: straight/heterosexual Gender Identity: female Exam Narrative Exam Narrative: Nurses notes and vital signs reviewed and patient is not hypoxic. General: Well-appearing and in no apparent distress. Skin: Warm, dry, no pallor noted. No rash. Head: Normocephalic, atraumatic. Neck: Supple, non-tender. Eye: Pupils are equal, round and EOMI. No scleral icterus. Ears, Nose, Mouth, and Throat: TM are clear, no nasal mucosal hypertrophy. Oral mucosa is moist, no posterior oropharynx erythema, uvula is mid-line Cardiovascular: Regular Rate and Rhythm without murmur, gallop or rub. Respiratory: No accessory muscle use or respiratory distress. Lungs are clear to auscultation, no wheezing, rales or rhonchi Bilateral breast examination showed that the patient have scarring on the left side that is healing on the right side the patient have an area of almost 7 x 12 cm oval in shape of redness in the middle of it there is an area of bulging almost 2 to 3 cm oval , the skin is tense and fluctuant Back: No midline thoracic or lumbar vertebral tenderness. No CVA tenderness Musculoskeletal: normal ROM, no calf or popliteal tenderness, no lower extremity edema/swelling GI: Abdomen is soft, non-distended. Normal bowel sounds. No masses appreciated. No tenderness to palpation. No rebound, guarding, or rigidity noted. Neurological: A&O x4. No cranial nerve dysfunction observed. No truncal ataxia. Moves all extremities. Sensation intact. Psychiatric: Cooperative and interactive. Normal mood and affect. Constitutional Vital Signs, click to edit/add: Last Vital Signs Temp 98.2 F 06/02/23 10:08 Pulse 116 H 06/02/23 10:08 Resp 20 06/02/23 10:08 BP 142/97 H 06/02/23 10:08 Pulse Ox 99 06/02/23 10:08 Course Vital Signs Vital signs: Vital Signs Temperature 98.2 F 06/02/23 10:08 Pulse Rate 116 H 06/02/23 10:08 Respiratory Rate 20 06/02/23 10:08 Blood Pressure 142/97 H 06/02/23 10:08 Pulse Oximetry 99 06/02/23 10:08 Temperature 98.2 F 06/02/23 10:08 Pulse Rate 116 H 06/02/23 10:08 Respiratory Rate 20 06/02/23 10:08 Blood Pressure 142/97 H 06/02/23 10:08 Pulse Oximetry 99 06/02/23 10:08 Medical Decision Making MDM Narrative Medical decision making narrative: The patient presented to us with a tachycardia as well as source of infection blood work-up shows leukocytosis the patient presentation is highly suspicious to be again similar to the left breast infection after she was noted to have a major duct obstruction that needed further drainage The patient was started on Levaquin as well as clindamycin The patient case was discussed with Dr. Avila who is the surgeon on-call and the patient will be n.p.o. after midnight After cleaning the area thoroughly with normal saline and Betadine the patient had 1% lidocaine to infiltrate the area and after 1 poke the patient had almost 45 cc of pus drained and the large bore needle and the pus was sent for culture The patient will be admitted for further evaluation and the patient was admitted under Dr. Jaimes after discussing the case with him Lab Data Labs: Lab Results 06/02/23 Range/Units 10:25 WBC 13.1 H (4.0-11.0) 10^3/uL RBC 4.58 (4.20-5.40) 10^6/uL Hgb 14.1 (12.0-16.0) g/dL Hct 41.8 (36.0-48.0) % MCV 91.3 (81.0-99.0) fL MCH 30.8 (26.7-34.0) pg MCHC 33.7 (29.9-35.2) g/dL RDW 14.7 (11.0-15.0) % Plt Count 161 (150-450) 10^3/uL MPV 11.3 (9.5-13.5) fL Neut % (Auto) 72.4 (43.0-75.0) % Lymph % (Auto) 22.5 (20.5-60.0) % [place] % (Auto) 4.0 (1.7-12.0) % Eos % (Auto) 0.2 L (0.9-7.0) % Baso % (Auto) 0.4 (0.2-2.0) % Neut # (Auto) 9.5 H (1.4-6.5) 10^3/uL Lymph # (Auto) 3.0 (1.2-3.8) 10^3/uL [place] # (Auto) 0.5 (0.3-0.8) 10^3/uL Eos # (Auto) 0.0 (0.0-0.7) 10^3/uL Baso # (Auto) 0.1 (0.0-0.1) 10^3/uL Abs Immat Gran (auto) 0.06 H (0.00-0.03) 10^3/uL Imm/Tot Granulo (auto) 0.5 (0.0-0.5) % Sodium 134 L (136-145) mmol/L Potassium 3.6 (3.5-5.1) mmol/L Chloride 100 (98-107) mmol/L Carbon Dioxide 23.7 (21.0-32.0) mmol/L Anion Gap 13.9 BUN 11.0 (7.0-18.0) mg/dL Creatinine 0.73 (0.55-1.02) mg/dL Est GFR ( Amer) >60 (>=60) Est GFR (Non-Af Amer) >60 (>=60) BUN/Creatinine Ratio 15.1 Glucose 137 H (74-106) mg/dL Lactate 1.8 (0.4-2.0) mmol/L Calcium 8.9 (8.5-10.1) mg/dL Total Bilirubin 0.4 (0.2-1.0) mg/dL AST 12 L (15-37) U/L ALT 20 (14-59) U/L Alkaline Phosphatase 74 (46-116) U/L Total Protein 7.7 (6.4-8.2) g/dL Albumin 3.9 (3.4-5.0) g/dL Globulin 3.8 g/dL Albumin/Globulin Ratio 1.0 Serum HCG, Qual Negative (NEGATIVE) Discharge Plan Discharge Chief Complaint: Skin/Abscess/Foreign Body Clinical Impression: Abscess of breast, Cellulitis of breast Patient Disposition: Admitted As Inpatient Time of Disposition Decision: 12:16
[2023-06-02 13:11] VITALS: BP 119/79; PULSE 75; RESP 18; TEMP 36.6; O2SAT 96; BMI 29.3
[2023-06-02 13:15] VITALS: BP 119/79; PULSE 75; RESP 16; TEMP 36.6; O2SAT 96
--- NOTE | 2023-06-02 14:13 | P.HP_ITS ---
<Statement entered by Shaikh Fiona MD - 06/02/23 17:19> This documentation has been reviewed and approved. Seen and examined. Chart reviewed, case discussed with Radha. Agree with clinical findings, treatment plan. Exam: NAD, laying in bed Right breast - purulent/white discharge noted along with associated cellulitic changes. ED RN was present during exam Assessment and Plan Breast cellulitis/abscess - failed outpatient abx - was prescribed Flagyl. Bedside I&D, thick/purulent fluid drained and sent for culture by ED. Started on Vancomycin/Aztreonam - she is PCN allergic. 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 She was recently admitted to this facility for an abscess of the L breast s/p I&D w/ wide debridement of the chronically inflamed tissue in the OR per general surgery. She has been following with Dr Owusu as an outpatient and taking all antibiotics as prescribed. She noted onset of R lateral sub-areolar tenderness 6 days ago (). She also noted mild persistent green drainage from the L surgical site at the same time. She was seen by her PCP on that day and placed on metronidazole per the wound culture results from 04/29/23. By Wednesday she noted development of a firm knot of tender induration to the R lateral breast. She took the antibiotics as prescribed over the weekend but the affected area continued to grow and became increasingly painful. She contacted Dr Owusu's office today and was advised to present to the ED for further evaluation. She had a follow up visit with Dr Owusu scheduled for later today. She denies fevers, chills, N/V, abdominal pain. Work-up in the ED revealed leukocytosis (13.1), all other labs were unremarkable. A breast US confirmed an avascular mass measuring 3.9 cm consistent with an abscess. The area was lanced by the ED physician and purulent drainage was immediately noted and cultured. She is being admitted to the hospitalist service in observation with Dr. Owusu, general surgeon, on consult for an I&D in the morning per the ED staff. At the time of my exam the pt is resting in bed. She reports persistent pain to the R breast partially relieved by lancing in the ED. The R lateral breast rall is red, warm, very tender, indurated. Incision draining thick, purulent exudate with a foul smell. The left breast surgical site is healing well w/o noted drng, induration, inflammation. We will initiate antibiotic treatment with Vancomycin IVPB for gram pos pathogens, and Aztreonam for gram neg and anaerobic coverage pending wound culture results. She will be made NPO at midnight for planned I&D in the OR in the morning. Review of Systems ROS Status of ROS 10 or more systems reviewed and unremark able except as noted in history and below [facility] Medical History (Updated 06/02/23 @ 12:16 by Guera Arzate MD) Tobacco dependence ?F17.200 - Nicotine dependence, unspecified, uncomplicated (ICD-10) Cellulitis of breast ?N61.0 - Mastitis without abscess (ICD-10) Breast abscess ?N61.1 - Abscess of the breast and nipple (ICD-10) Family History (Updated 04/29/23 @ 15:53 by Daily Shaw) Father Family history of COPD (chronic obstructive pulmonary disease) Mother Family history of cancer Social History (Updated 04/29/23 @ 15:52 by Daily Shaw) Within the past year, how often did you have a drink containing alcohol: never Score interpretation: A score less than 3 is consistent with normal alcohol consumption. 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 Known occupational exposures/hazards: No Highest level of school completed/degree received: high school graduate Do you want help with school or training: No Are you now , , , , never or living with a partner: In a typical week, how many times do you talk on the telephone with family, friends, or neighbors: 3 or more times per week How often do you get together with friends or relatives: 3 or more times per week How often do you attend buddhist or restorationist services: 4 or more times per year Do you belong to any clubs or organizations such as buddhist groups unions, fraternal or athletic groups, or school groups: no Total score: 3 Score interpretation: A score of greater than or equal to 2 indicates the lowest level of social isolation. Little interest or pleasure in doing things: not at all Feeling down, depressed, or hopeless: not at all Feel stressed/tense/nervous/anxious/difficulty sleeping: not at all Due to disability, difficulty making decisions: No Do you think of yourself as: straight/heterosexual Gender Identity: female Meds Home Medications and Allergies Home Medications Medication Instructions Recorded Confirmed Type ibuprofen 600 mg tablet 600 mg PO Q8H PRN pain #30 tabs 05/02/23 06/02/23 Rx metronidazole 500 mg tablet 500 mg PO BID 06/02/23 06/02/23 History Allergies Allergy/AdvReac Type Severity Reaction Status Date / Time Penicillins Allergy Intermediate Verified 04/29/23 10:45 Exam Constitutional Vital Signs, click to edit/add: Last Vital Signs Temp 97.9 F 06/02/23 13:15 Pulse 75 06/02/23 13:15 Resp 16 06/02/23 13:15 BP 119/79 06/02/23 13:15 Pulse Ox 96 06/02/23 13:15 O2 Del Method Room Air 06/02/23 13:15 Common normals: no apparent distress, oriented x3, alert and well nourished General appearance: cooperative Orientation/consciousness: Yes awake HENMT Common normals: normocephalic, head/scalp atraumatic, hearing grossly normal bilaterally, external nose normal and moist oral mucous membranes Eye Common normals: PERRL, EOMs intact bilaterally, conjunctivae normal and no scleral icterus Alignment: alignment normal Neck & C-Spine Common normals: full ROM, supple and no JVD Chest Chest: symmetrical chest wall rise Breast/axilla inspection: abnormal inspection of the breast right upper outer other (R lateral giorgi-areolar induration, warm, very tender, purulent drng) and other (L surgical site healing well. No drng) Respiratory Common normals: normal respiratory effort, no retractions, no use of accessory muscles and clear to auscultation bilaterally Effort & inspection: able to speak in complete sentences Cardio Common normals: no JVD, regular rate, regular rhythm, S1 normal heart sound, S2 normal heart sound, no gallops, no clicks, no murmurs, no rub and peripheral pulses 2+ throughout GI Common normals: Normal to inspection, nondistended, normoactive bowel sounds present, soft to palpation, non-tender, no hepatosplenomegaly, no masses and no bruits Bladder/kidney exam: bladder normal to palpation Back & Pelvis Common normals: thoracic and lumbar spine normal to inspection Extremity Common normals: normal capillary refill and no pedal edema General: normal exam except as noted; no clubbing and no cyanosis Neuro Lizyz Coma Scale: GCS not evaluated Common normals: CN's II-XII intact bilaterally, moves all extremities, no focal motor deficits and no sensory deficits noted Speech: speech normal Motor exam: strength 5/5 throughout Psych Common normals: mental status grossly normal, thought process normal, affect normal and activity/motor behavior normal Results Labs Labs: Short CBC 06/02/23 Range/Units 10:25 WBC 13.1 H (4.0-11.0) 10^3/uL Hgb 14.1 (12.0-16.0) g/dL Hct 41.8 (36.0-48.0) % Plt Count 161 (150-450) 10^3/uL BMP 06/02/23 10:25 Sodium 134 L Potassium 3.6 Chloride 100 Carbon Dioxide 23.7 BUN 11.0 Creatinine 0.73 Glucose 137 H Calcium 8.9 Liver Function 06/02/23 Range/Units 10:25 Total Bilirubin 0.4 (0.2-1.0) mg/dL AST 12 L (15-37) U/L ALT 20 (14-59) U/L Alkaline Phosphatase 74 (46-116) U/L Albumin 3.9 (3.4-5.0) g/dL Pulse Oximetry Attestation: I have reviewed the pertinent pulse oximetry results. Assessment and Plan Assessment and Plan (1) Abscess of breast: Assessment and Plan: ACUTE * Adm observation * C/S Dr Owusu - we appreciate his assistance with this pt's care * NPO at midnight for planned OR in am * Percocet for pain - MS IVP for breakthrough pain or while NPO * LR IVF for hydration * IVPB Vanco (pharm to dose) and Aztreonam for broad gram pos, neg and anaerobic coverage * Wound cultures obtained in the ED - pending * Blood cultures x 2 drawn in ED - pending * Daily CBC, CMP (2) Tobacco dependence: Assessment and Plan: CHRONIC * Pt smokes 1 ppd+ * Nicoderm 21 mg patch daily
[2023-06-02] MEDS: OXYCODONE HCL/ACETAMINOPHEN 5MG/325MG 1 TAB PO (15:05)
[2023-06-02] MEDS: LACTATED RINGER'S SOLUTION 1,000 ML 125 ML IV (15:41)
[2023-06-02] MEDS: NICOTINE 21 MG PATCH.TD24 TD (15:42)
[2023-06-02] MEDS: AZTREONAM 2,000 MG in 0.9 % SODIUM CHLORIDE 100 ML 100 MG IV ×2 (15:42→22:32)
[2023-06-02] MEDS: VANCOMYCIN HCL 1,000 MG in 0.9 % SODIUM CHLORIDE 250 ML 250 MG IV ×2 (17:26→23:56)
[2023-06-02 21:29] VITALS: BP 101/65; PULSE 82; RESP 18; TEMP 36.6; O2SAT 98
[2023-06-02] MEDS: OXYCODONE HCL/ACETAMINOPHEN 5MG/325MG 2 TAB PO (21:35)
[2023-06-03] VITALS (9 sets, daily range): BP systolic 100–127; BP diastolic 57–88; PULSE 58–89; RESP 16–18; TEMP 36.4–36.9; O2SAT 96–98
[2023-06-03] MEDS: LACTATED RINGER'S SOLUTION 1,000 ML 125 ML IV ×3 (02:50→22:39)
[2023-06-03 05:26] LABS: Basophils Percent Auto 0.5 % (0.2-2.0); Eosinophils Absolute Auto 0.1 10^3/uL (0.0-0.7); Hematocrit 35.4 % (36.0-48.0); Hemoglobin 11.6 g/dL (12.0-16.0); Immature Granulocytes Abs Auto 0.02 10^3/uL (0.00-0.03); Immature Granulocytes Pct Auto 0.3 % (0.0-0.5); Lymphocytes Absolute Auto 2.4 10^3/uL (1.2-3.8); Lymphocytes Percent Auto 38.3 % (20.5-60.0); Mean Corpuscular HGB Conc 32.8 g/dL (29.9-35.2); Mean Corpuscular Hemoglobin 30.4 pg (26.7-34.0); Mean Corpuscular Volume 92.9 fL (81.0-99.0); Mean Platelet Volume 11.4 fL (9.5-13.5); Monocytes Absolute Auto 0.5 10^3/uL (0.3-0.8); Monocytes Percent Auto 8.3 % (1.7-12.0); Neutrophils Absolute Auto 3.2 10^3/uL (1.4-6.5); Neutrophils Percent Auto 51.6 % (43.0-75.0); Platelet Count 130 10^3/uL (150-450); Red Blood Count 3.81 10^6/uL (4.20-5.40); Red Cell Distribution Width 14.9 % (11.0-15.0); White Blood Count 6.2 10^3/uL (4.0-11.0)
[2023-06-03] MEDS: MORPHINE SULFATE 2 MG/ML SYRINGE IV ×4 (05:33→18:42)
[2023-06-03 05:41] LABS: Alanine Aminotransferase 14 U/L (14-59); Albumin Level 2.8 g/dL (3.4-5.0); Alkaline Phosphatase 50 U/L (46-116); Aspartate Amino Transferase 9 U/L (15-37); BUN Creatinine Ratio 14.5; Bilirubin Total 0.2 mg/dL (0.2-1.0); Calcium 8.3 mg/dL (8.5-10.1); Carbon Dioxide 26.2 mmol/L (21.0-32.0); Chloride 106 mmol/L (98-107); Estimated GFR (African America >60 (>=60); Estimated GFR (Non-African Ame >60 (>=60); Globulin 2.9 g/dL; Glucose 91 mg/dL (74-106); Potassium 4.2 mmol/L (3.5-5.1); Sodium 137 mmol/L (136-145); Total Protein 5.7 g/dL (6.4-8.2)
--- NOTE | 2023-06-03 05:47 | P.GSCN_ITS ---
History of Present Illness Consult details Consult date: 06/03/23 Reason for consult: other (breast abscess right breast) Narrative: 38-year-old female presented to the Emergency Department with right breast pain and was found to have right breast abscess was documented on ultrasound the right breast performed yesterday. It noted to be 3.9 x 3.9 cm. She states the areas been draining and is painful. She was just in the hospital a month ago and another surgeon Dr. Cruz took care of her and she had an incision and drainage of her left breast abscess. She grew out anaerobes of Finegoldia magna and Gleimia europaea.she has been on antibiotics off and on. She smokes tobacco against medical advice. Review of Systems ROS Status of ROS 10 or more systems reviewed and unremark able except as noted in history and below [facility] Medical History Tobacco dependence ?F17.200 - Nicotine dependence, unspecified, uncomplicated (ICD-10) Cellulitis of breast ?N61.0 - Mastitis without abscess (ICD-10) Breast abscess ?N61.1 - Abscess of the breast and nipple (ICD-10) Family History Father Family history of COPD (chronic obstructive pulmonary disease) Mother Family history of cancer Social History Within the past year, how often did you have a drink containing alcohol: never Score interpretation: A score less than 3 is consistent with normal alcohol consumption. 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 Known occupational exposures/hazards: No Highest level of school completed/degree received: high school graduate Do you want help with school or training: No Are you now , , , , never or living with a partner: In a typical week, how many times do you talk on the telephone with family, friends, or neighbors: 3 or more times per week How often do you get together with friends or relatives: 3 or more times per week How often do you attend adventist or mandaeism services: 4 or more times per year Do you belong to any clubs or organizations such as adventist groups unions, fraternal or athletic groups, or school groups: no Total score: 3 Score interpretation: A score of greater than or equal to 2 indicates the lowest level of social isolation. Little interest or pleasure in doing things: not at all Feeling down, depressed, or hopeless: not at all Feel stressed/tense/nervous/anxious/difficulty sleeping: not at all Due to disability, difficulty making decisions: No Do you think of yourself as: straight/heterosexual Gender Identity: female Meds Home Medications and Allergies Home Medications Medication Instructions Recorded Confirmed Type ibuprofen 600 mg tablet 600 mg PO Q8H PRN pain #30 tabs 05/02/23 06/02/23 Rx metronidazole 500 mg tablet 500 mg PO BID 06/02/23 06/02/23 History Allergies Allergy/AdvReac Type Severity Reaction Status Date / Time Penicillins Allergy Intermediate Verified 04/29/23 10:45 Exam Constitutional Vital Signs, click to edit/add: Last Vital Signs Temp 98 F 06/02/23 21:29 Pulse 82 06/02/23 21:29 Resp 18 06/02/23 21:29 BP 101/65 06/02/23 21:29 Pulse Ox 98 06/02/23 21:29 O2 Del Method Room Air 06/02/23 21:29 Documenting provider has reviewed patient's vital signs: yes Common normals: no apparent distress, average body habitus, oriented x3 and healthy appearing General appearance: cooperative and comfortable Chest Other: right breast slight opening and redness in about eight to 9 o'clock position with minimal drainage but tenderness to palpation and a mass probably 1.5-2 cm in size consistent with most likely an abscess Property Management Specialist Erma nurse was present. Left breast healing and wound about 1 cm x 0.75 cm with scant from previous I and D at the 9 o'clock position near the areola. No other palpable masses were noted in either breast. There is no axillary or cervical or supra levator adenopathy appreciated. Results Labs Labs: Abnormal lab results 06/02/23 06/03/23 Range/Units 10:25 04:56 WBC 13.1 H (4.0-11.0) 10^3/uL RBC 3.81 L (4.20-5.40) 10^6/uL Hgb 11.6 L (12.0-16.0) g/dL Hct 35.4 L (36.0-48.0) % Plt Count 130 L (150-450) 10^3/uL Eos % (Auto) 0.2 L (0.9-7.0) % Neut # (Auto) 9.5 H (1.4-6.5) 10^3/uL Abs Immat Gran (auto) 0.06 H (0.00-0.03) 10^3/uL Sodium 134 L (136-145) mmol/L Glucose 137 H (74-106) mg/dL AST 12 L (15-37) U/L Diabetes panel 06/02/23 Range/Units 10:25 Sodium 134 L (136-145) mmol/L Potassium 3.6 (3.5-5.1) mmol/L Chloride 100 (98-107) mmol/L Carbon Dioxide 23.7 (21.0-32.0) mmol/L BUN 11.0 (7.0-18.0) mg/dL Creatinine 0.73 (0.55-1.02) mg/dL Glucose 137 H (74-106) mg/dL Calcium 8.9 (8.5-10.1) mg/dL AST 12 L (15-37) U/L ALT 20 (14-59) U/L Alkaline Phosphatase 74 (46-116) U/L Total Protein 7.7 (6.4-8.2) g/dL Albumin 3.9 (3.4-5.0) g/dL Calcium panel 06/02/23 Range/Units 10:25 Calcium 8.9 (8.5-10.1) mg/dL Albumin 3.9 (3.4-5.0) g/dL Pituitary panel 06/02/23 Range/Units 10:25 Sodium 134 L (136-145) mmol/L Potassium 3.6 (3.5-5.1) mmol/L Chloride 100 (98-107) mmol/L Carbon Dioxide 23.7 (21.0-32.0) mmol/L BUN 11.0 (7.0-18.0) mg/dL Creatinine 0.73 (0.55-1.02) mg/dL Glucose 137 H (74-106) mg/dL Calcium 8.9 (8.5-10.1) mg/dL Adrenal panel 06/02/23 Range/Units 10:25 Sodium 134 L (136-145) mmol/L Potassium 3.6 (3.5-5.1) mmol/L Chloride 100 (98-107) mmol/L Carbon Dioxide 23.7 (21.0-32.0) mmol/L BUN 11.0 (7.0-18.0) mg/dL Creatinine 0.73 (0.55-1.02) mg/dL Glucose 137 H (74-106) mg/dL Calcium 8.9 (8.5-10.1) mg/dL Total Bilirubin 0.4 (0.2-1.0) mg/dL AST 12 L (15-37) U/L ALT 20 (14-59) U/L Alkaline Phosphatase 74 (46-116) U/L Total Protein 7.7 (6.4-8.2) g/dL Albumin 3.9 (3.4-5.0) g/dL All other labs normal. Imaging Additional studies: breast ultrasound reviewed Assessment and Plan Assessment and Plan (1) Abscess of breast: Assessment and Plan: right breast abscess with history of left breast abscess no history of MRSA (2) Tobacco dependence: Plan incision and drainage of right breast abscess and if continues to be a problem recommend referral to a breast specialist. Risks benefits and alternatives to incision and drainage may include infection bleeding pain scar formation. She understood all the above and wish to proceed. Tobacco cessation was discussed with patient as well. CPT 59605?[id number]
[2023-06-03] MEDS: AZTREONAM 2,000 MG in 0.9 % SODIUM CHLORIDE 100 ML 100 MG IV ×3 (06:06→22:39)
--- NOTE | 2023-06-03 09:24 | CM.NOTE ---
Rounding with Dr. Jaimes. No anticipated discharge today and no anticipated discharge needs. OR planned for today @ 2:40pm.
[2023-06-03] MEDS: VANCOMYCIN HCL 1,000 MG in 0.9 % SODIUM CHLORIDE 250 ML 250 MG IV ×2 (09:34→15:51)
--- NOTE | 2023-06-03 13:38 | PM.GSPRC ---
Date of procedure: 06/03/23 Indications for Procedure: right breast abscess Pre-op diagnosis: right breast abscess Post-op diagnosis: same as pre-op Procedure: incision and drainage of deep right breast abscess Anesthesia: KENYON Surgeon: Neeraj Grigsby Procedure Summary: Patient was taken to the operative suite placed in the supine position and given a general anesthetic by the loss mitigation specialist. The right breast was prepped and draped usual sterile fashion. Timeout was taken. Preoperative antibiotics were given. SCDs were placed on bilateral lower extremities. It was an area at about the 9 o'clock position of the right breast near the areola which was opened along the areola generously to 3 cm and then explored with a hemostat and then the area was irrigated with saline and packed with half-inch iodoform gauze. Sterile dressing was placed.no purulent drainage was obtained. There was explored with a gloved finger. Irrigation was clear. Director Of Research And Development: CAMILA Mccarthy Estimated blood loss (mL): 5 Complications: No Pathology: none sent Condition: stable Disposition: PACU
[2023-06-03] MEDS: NICOTINE 21 MG PATCH.TD24 TD (13:53)
--- NOTE | 2023-06-03 14:56 | P.PN_ITS ---
<Statement entered by Shaikh Fiona MD - 06/04/23 13:35> This documentation has been reviewed and approved. Seen and examined. Chart reviewed, case discussed with LENS CEMENTER. Exam NAD, laying in bed Right breast abscess - dressing in place Assessment plan C/w IV vancomycin/aztroenam. F/u OR cultures. Possible d/c tomorrow after I&D Progress Note: Subjective Subjective Interval history: 06/03/23 0900 The pt is resting in bed sleeping. She awakens easily to voice. She denies any acute complaints other than persistent R breast pain. Minimal drainage this morning but nursing has already changed the dressing today as it became saturated overnight. OR planned for mid afternoon today. The pt is hopeful that she can be discharged home post operatively but we defer to the surgical service if d/c is indicated. Exam Constitutional Vital Signs, click to edit/add: Last Vital Signs Temp 98.2 F 06/03/23 14:05 Pulse 72 06/03/23 14:05 Resp 18 06/03/23 14:05 BP 125/88 06/03/23 14:05 Pulse Ox 98 06/03/23 14:05 O2 Del Method Room Air 06/03/23 14:05 Common normals: no apparent distress, oriented x3 and alert General appearance: cooperative Orientation/consciousness: Yes awake HENTX Common normals: normocephalic, head/scalp atraumatic and hearing grossly normal bilaterally Eye Common normals: PERRL, EOMs intact bilaterally, conjunctivae normal and no s cleral icterus General eye: normal appearance of both eyes Chest Common normals: inspection of chest normal Chest: symmetrical chest wall rise Nipple/areola: areola abnormal (lateral R breast open abscess, purulent drng) Respiratory Common normals: normal respiratory effort, no use of accessory muscles and clear to auscultation bilaterally Effort & inspection: able to speak in complete sentences Cardio Common normals: regular rate, regular rhythm, S1 normal heart sound, S2 normal heart sound, no murmurs and peripheral pulses 2+ throughout GI Common normals: Normal to inspection, nondistended, normoactive bowel sounds present, soft to palpation, non-tender and no hepatosplenomegaly Bladder/kidney exam: bladder normal to palpation Extremity Common normals: normal to inspection and no calf tenderness General: no clubbing, no cyanosis and no edema Neuro Common normals: CN's II-XII intact bilaterally, moves all extremities, no focal motor deficits and no sensory deficits noted Psych Common normals: mental status grossly normal Progress Note: Objective Labs Labs: Short CBC 06/03/23 Range/Units 04:56 WBC 6.2 (4.0-11.0) 10^3/uL Hgb 11.6 L (12.0-16.0) g/dL Hct 35.4 L (36.0-48.0) % Plt Count 130 L (150-450) 10^3/uL BMP 06/03/23 04:56 Sodium 137 Potassium 4.2 Chloride 106 Carbon Dioxide 26.2 BUN 10.0 Creatinine 0.69 Glucose 91 Calcium 8.3 L Liver Function 06/03/23 Range/Units 04:56 Total Bilirubin 0.2 (0.2-1.0) mg/dL AST 9 L (15-37) U/L ALT 14 (14-59) U/L Alkaline Phosphatase 50 (46-116) U/L Albumin 2.8 L (3.4-5.0) g/dL Progress Note: A&P Assessment and Plan (1) Abscess of breast: Assessment and Plan: ACUTE * OR I&D today * C/S Dr Owusu - we appreciate his assistance with this pt's care * NPO at midnight for OR * Post op D/C possible pending operative course * Percocet for pain - MS IVP for breakthrough pain or while NPO * LR IVF for hydration * IVPB Vanco (pharm to dose) and Aztreonam for broad gram pos, neg and anaerobic coverage * Wound cultures obtained in the ED - pending * Blood cultures x 2 drawn in ED - pending * Daily CBC, CMP (2) Tobacco dependence: Assessment and Plan: CHRONIC * Pt smokes 1 ppd+ * Nicoderm 21 mg patch daily
[2023-06-03] MEDS: OXYCODONE HCL/ACETAMINOPHEN 5MG/325MG 2 TAB PO ×2 (16:25→22:37)
[2023-06-03] MEDS: ONDANSETRON PF 4 MG/2 ML VIAL IV (16:25)
[2023-06-03] MEDS: HYDROMORPHONE HCL 0.5 MG/0.5 ML SYRINGE IV (21:00)
--- NOTE | 2023-06-03 21:14 | PC.NURSE ---
PATIENT RESTING AND WATCHING SHOW ON HER PHONE AT THIS TIME.
[2023-06-04] MEDS: MORPHINE SULFATE 2 MG/ML SYRINGE IV ×2 (00:01→05:02)
[2023-06-04] MEDS: VANCOMYCIN HCL 1,000 MG in 0.9 % SODIUM CHLORIDE 250 ML 250 MG IV ×2 (00:02→10:02)
[2023-06-04 01:00] VITALS: O2SAT 97
[2023-06-04 05:00] VITALS: O2SAT 96
[2023-06-04 05:36] VITALS: BP 108/68; PULSE 59; RESP 18; TEMP 36.8; O2SAT 95
[2023-06-04 06:08] LABS: Hematocrit 39.8 % (36.0-48.0); Hemoglobin 12.9 g/dL (12.0-16.0); Immature Granulocytes Abs Auto 0.04 10^3/uL (0.00-0.03); Immature Granulocytes Pct Auto 0.6 % (0.0-0.5); Lymphocytes Absolute Auto 0.9 10^3/uL (1.2-3.8); Lymphocytes Percent Auto 13.4 % (20.5-60.0); Mean Corpuscular HGB Conc 32.4 g/dL (29.9-35.2); Mean Corpuscular Hemoglobin 30.3 pg (26.7-34.0); Mean Corpuscular Volume 93.4 fL (81.0-99.0); Mean Platelet Volume 11.6 fL (9.5-13.5); Monocytes Absolute Auto 0.1 10^3/uL (0.3-0.8); Monocytes Percent Auto 0.9 % (1.7-12.0); Neutrophils Absolute Auto 5.5 10^3/uL (1.4-6.5); Neutrophils Percent Auto 85.1 % (43.0-75.0); Platelet Count 134 10^3/uL (150-450); Red Blood Count 4.26 10^6/uL (4.20-5.40); Red Cell Distribution Width 14.4 % (11.0-15.0); White Blood Count 6.5 10^3/uL (4.0-11.0)
[2023-06-04] MEDS: AZTREONAM 2,000 MG in 0.9 % SODIUM CHLORIDE 100 ML 100 MG IV (06:08)
[2023-06-04] MEDS: OXYCODONE HCL/ACETAMINOPHEN 5MG/325MG 2 TAB PO ×2 (06:11→12:01)
[2023-06-04 06:50] LABS: Alanine Aminotransferase 15 U/L (14-59); Albumin Globulin Ratio 0.8; Albumin Level 3.2 g/dL (3.4-5.0); Alkaline Phosphatase 57 U/L (46-116); Anion Gap 12.5; Aspartate Amino Transferase 13 U/L (15-37); BUN Creatinine Ratio 12.3; Bilirubin Total 0.3 mg/dL (0.2-1.0); Calcium 8.7 mg/dL (8.5-10.1); Carbon Dioxide 26.5 mmol/L (21.0-32.0); Chloride 102 mmol/L (98-107); Estimated GFR (African America >60 (>=60); Estimated GFR (Non-African Ame >60 (>=60); Globulin 3.8 g/dL; Glucose 139 mg/dL (74-106); Sodium 137 mmol/L (136-145)
[2023-06-04 08:37] LABS: Vancomycin Trough 13.7 ug/mL (5.0-20.0)
--- NOTE | 2023-06-04 09:44 | CM.NOTE ---
Rounding with Dr. Jaimes. Pt. tearful due to a frustration with surgical procedure that surgeon did not disconnect my mild gland. I know I am going to be back in here . Dr. Jaimes the surgeon do what he feels is best during the surgical procedure and that surgeon cannot just do a certain procedure because the patient wants him to, pt. voiced understanding.
[2023-06-04] MEDS: LACTATED RINGER'S SOLUTION 1,000 ML 125 ML IV (10:03)
--- NOTE | 2023-06-04 13:05 | P.DS_ITS ---
DS: Providers Provider Date of admission: 06/02/23 12:33 Primary care physician: Non-Staff Physician, Consults: 06/02/23 14:04 Consult to General Surgeon Routine Consulting Provider: Neeraj Owusu Reason for consultation: Recurrent R breast abscess Has provider been notified: No Attending physician on discharge: Shaikh Fiona Discharging clinician: Shaikh Fiona Anticipated date of discharge: 06/04/23 DS: Diagnosis Discharge Diagnosis (1) Abscess of breast: Assessment and plan: s/p I&D. Wound culture is positive for Staph lugdunensis. Will d/c on oral Doxycyline F/u with wound and Dr Grigsby as outpatient. (2) Tobacco dependence: Assessment and plan: Recommend smoking cessation. DS: Summary Hospital Course Hospital Course: Patient presented with right breast abscess - started on IV vancomycin and aztreonam. S/p I&D - wound culture is growing staph lugdunensis Will d/c on oral doxycyline. F/u with wound as outpatient. Status at Discharge Functional status at discharge: independent ambulation Overall status at discharge: patient is back to baseline Time Spent with Patient Time attestation: Total time spent providing and/or coordinating discharge services: Time spent: greater than 30 minutes Exam Constitutional Vital Signs, click to edit/add: Last Vital Signs Temp 98.2 F 06/04/23 05:36 Pulse 59 L 06/04/23 05:36 Resp 18 06/04/23 05:36 BP 108/68 06/04/23 05:36 Pulse Ox 95 06/04/23 05:36 O2 Del Method Room Air 06/04/23 05:36 Documenting provider has reviewed patient's vital signs: yes General appearance: cooperative and comfortable Chest Other: right breast - post op dressing in place Respiratory Common normals: normal respiratory effort, no use of accessory muscles and clear to auscultation bilaterally Cardio Common normals: regular rate, regular rhythm, S1 normal heart sound and S2 normal heart sound DS: Data Data Completed and Pending Labs on day of discharge: Labs from last 24 hours 06/04/23 06/04/23 07:02 05:03 WBC 6.5 RBC 4.26 Hgb 12.9 Hct 39.8 MCV 93.4 MCH 30.3 MCHC 32.4 RDW 14.4 Plt Count 134 L MPV 11.6 Neut % (Auto) 85.1 H Lymph % (Auto) 13.4 L [place] % (Auto) 0.9 L Eos % (Auto) 0.0 L Baso % (Auto) 0.0 L Neut # (Auto) 5.5 Lymph # (Auto) 0.9 L [place] # (Auto) 0.1 L Eos # (Auto) 0.0 Baso # (Auto) 0.0 Abs Immat Gran (auto) 0.04 H Imm/Tot Granulo (auto) 0.6 H Sodium 137 Potassium 4.0 Chloride 102 Carbon Dioxide 26.5 Anion Gap 12.5 BUN 9.0 Creatinine 0.73 Est GFR ( Amer) >60 Est GFR (Non-Af Amer) >60 BUN/Creatinine Ratio 12.3 Glucose 139 H Calcium 8.7 Total Bilirubin 0.3 AST 13 L ALT 15 Alkaline Phosphatase 57 Total Protein 7.0 Albumin 3.2 L Globulin 3.8 Albumin/Globulin Ratio 0.8 Vancomycin Trough 13.7 Preliminary micro results at discharge 06/02/23 12:00 Wound Culture - Preliminary Wound - Abscess Staphylococcus lugdunensis Discharge Plan Discharge Disposition: Home, Self-Care Discharge Medications: New doxycycline monohydrate 100 mg tablet 100 mg PO BID 10 Days Qty: 20 0RF Continued ibuprofen 600 mg tablet 600 mg PO Q8H PRN (Reason: pain) Qty: 30 0RF Discontinued metronidazole 500 mg tablet 500 mg PO BID Activity: increase activity as tolerated Diet: advance to your usual diet Forms: Portal Instructions Follow Up Appointments: F/u wound care F/u PCP in one week F/u with Dr Grigsby in 1-2 weeks
--- NOTE | 2023-06-07 16:04 | CM.DCFOLLOWU ---
Person spoke with: Shannan How are you feeling? Still having pain How is your pain? Continued pain only had enough pain medication for 3 days. Pt was scheduled to see primary care doctor on Wednesday but patient rescheduled Did you understand your discharge instructions? Yes Do you have any questions about your discharge instructions? No Were you given any prescriptions at discharge? Yes Were you able to get your prescriptions filled? Yes Do you understand how to take your medications as ordered? Yes Do you have any questions about your follow up appointment and do you plan to keep your follow up appointment? No its rescheduled for Wed and plan on going Is there anything else that you would like to discuss? No Questions/Comments/Concerns/Other:
--- OUTSIDE RECORDS SUMMARY | 2023-06-16 01:56 | XMS_ITS | CCD ---
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 Name Role Phone Jericho Barreto Attending Unavailable Imtiaz Metz Primary Care Unavailable Uriel Chadwick Admitting Unavailable No, Physician Primary Care Provider Unavailabl e No, Physician Primary Care Provider Unavailabl e No, Physician Primary Care Provider Unavailabl e NO, PHYSICIAN Primary Care Unavailable RADHA LI Attending Unav ailable NO, PHYSICIAN Primary Care Unavailable OLLIE FENG Attending Unavailable NO, PHYSICIAN Primary Care Unavailable GWENDOLYN TEE Attending Unavailab BOONE Apple Admitting Unavailable BOONE RESENDIZ Attending Unavailable NO, PHYSICIAN Primary Care Unavailable NO, PHYSICIAN Primary Care Unavailable RADHA LI Admitting Unav ailable RADHA LI Attending Unav ailable NO, PHYSICIAN Primary Care Unavailable ONOFRE ROWELL Attending Unavailabl HESHAM Hoffmann Attending Unavailable NO, PHYSICIAN Primary Care Unavailable NO, PHYSICIAN Primary Care Unavailable HESHAM BARNES Attending Unavailable DR LARRY TORRES Consulting Unavailable REQUEST, NONE LISTED Primary Care Unavaila SHAIKH Amol Medina Admitting Unavailable SHAIKH Amol PEDRO Attending Unavailable DIANNE SHAW Consulting Unavailable SILVA SARMIENTO Consulting Unavailable SHAIKH Amol PEDRO Consulting Unavailable OSMIN MICHAEL Consulting Unavailable RADHA RINALDI Consulting Unavailable DR OSMIN MCGEE Consulting Unavailable SILVA SARMIENTO Admitting Unavailable REQUEST, NONE LISTED Primary Care Unavaila SILVA Romero Attending Unavailable SILVA SARMIENTO Consulting Unavailable SILVA SARMIENTO Consulting Unavailable TORSTEN, SILVA Admitting Unavailable REQUEST, NONE LISTED Primary Care Unavaila iesha SARMIENTO, SILVA Attending Unavailable JONATHON, DR SHOOK Consulting Unavailable TORSTEN, SILVA Admitting Unavailable REQUEST, NONE LISTED Primary Care Unavaila iesha SARMIENTO, SILVA Attending Unavailable ROSANNE, DR GOLD Hendrix Consulting Unavailable REQUEST, NONE LISTED Primary Care Unavaila ble TORSTEN, SILVA Admitting Unavailable TORSTEN, SILVA Attending Unavailable TORSTEN, SILVA Consulting Unavailable BOONE LEA Consulting Unavailable Ashlyn Potter Primary Care Physician Neeraj MUNOZ Attending Unavailable NILL, Neeraj Hendrix Attending Unavailable NILL, Neeraj Hendrix Attending Unavailable IMTIAZ METZ Attending Unavailable CUTDARNELL DAMON Attending Unavailable Allergies Allergy Classification Reported Allergen(s) Allergy Type Date of Onset Reaction(s) Facility (11 sources) Penicillins; Translations: [PENICILLINS] Drug allergy (disorder) 8 [facility] Repository (5 sources) Penicillin; Translations: [penicillin] Drug Allergy [facility] Repository (3 sources) Tape 1 Propensity to adverse reactions to substance Redness, Itching [facility] Comment on above: plastic tape (1 source) Adhesive Tape; Translations: [Tape] Propensity to adverse reactions (disorder) [facility] Repository Medications Current Medications Medication Drug Class(es) Dates Sig (Normalized) Sig (Original) cephalexin 500 mg oral capsule (4 sources) Cephalosporin Antibacterial Start: 10-07-2019 End: 10-17-2019 take 1 capsule by mouth four times daily cephALEXin (KEFLEX) 500 MG capsule Take 1 (one) capsule (500 mg total) by mouth 4 (four) times a day for 10 days . 40 capsule 0 10/07/2019 10/17/2019 Active ondansetron 4 mg oral tablet (8 sources) Serotonin-3 Receptor Antagonist Start: 08-29-2019 take 1 tablet by mouth every eight hours as needed ondansetron (Zofran) 4 MG tablet Take 1 (one) tablet (4 mg total) by mouth every 8 (eight) hours as needed for nausea . 15 tablet 0 08/29/2019 Active Start: 08-29-2019 End: 08-29-2019 ondansetron (ZOFRAN) injecti on 4 mg raNITIdine 150 mg oral capsule (6 sources) Histamine-2 Receptor Antagonist Start: 08-29-2019 End: 09-08-2019 take 1 capsule by mouth twice daily ranitidine (ZANTAC) 150 MG capsule Take 1 (one) capsule (150 mg total) by mouth 2 (two) times a day for 10 days . 20 capsule 0 08/29/2019 Active sulfamethoxazole 800 mg / trimethoprim 160 mg oral tablet (4 sources) Dihydrofolate Reductase Inhibitor Antibacterial, Sulfonamide Antimicrobial Start: 10-07-2019 End: 10-17-2019 take 1 tablet by mouth twice daily sulfamethoxazol e-trimethoprim (BACTRIM DS,SEPTRA DS) 800-160 mg per tablet Take 1 (one) tablet by mouth 2 (two) times a day for 10 days . 20 tablet 0 10/07/2019 10/17/2019 Active Start: 10-07-2019 End: 10-07-2019 sulfamethoxazole-trimethopri m (BACTRIM DS,SEPTRA DS) 800-160 mg per tablet 1 tablet Completed/Discontinued Medications Medication Drug Class(es) Dates Sig (Normalized) Sig (Original) acetaminophen 325 mg oral tablet (1 source) Start: 05-21-2020 End: 05-21-2020 acetaminophen (TYLENOL) tablet 650 mg acetaminophen 325 mg / HYDROcodone bitartrate 5 mg oral tablet (1 source) Opioid Agonist Start: 10-07-2019 End: 10-07-2019 HYDROcodone-acetami nophen (NORCO) 5-325 mg per tablet 1 tablet daily dressing change (2 sources) Start: 05-13-2023 daily dressing change daily dressing change, Complete daily damp to dry dressing change to left breast until wound is healed, 0, 0, Print Requisition, Supply Start Date: 05/13/23 Status: Ordered ibuprofen 600 mg oral tablet (4 sources) Nonsteroidal Anti-inflammatory Drug Start: 05-21-2020 End: 05-21-2020 ibuprofen (ADVIL,MOTRIN) tablet 600 mg Start: 10-07-2019 End: 10-12-2019 take 1 tablet by mouth every eight hours as needed ibuprofen (ADVIL,MOTRIN) 600 MG tablet Take 1 (one) tablet (600 mg total) by mouth every 8 (eight) hours as needed for pain Take with food . 15 tablet 0 10/07/2019 10/12/2019 Active 1 ml ketorolac tromethamine 30 mg/ml injection (1 source) Nonsteroidal Anti-inflammatory Drug, Cyclooxygenase Inhibitor Start: 06-05-2020 End: 06-05-2020 ketorolac (TORADOL) injection 30 mg Lidocaine (1 source) Antiarrhythmic, Amide Local Anesthetic Start: 10-07-2019 End: 10-07-2019 lidocaine 10 mg/mL (1 %) injection 10 mL lidocaine viscous 2% 10 mL and maalox plus 30 mL (GI COCKTAIL) 40 mL solution (1 source) Start: 08-29-2019 End: 08-29-2019 lidocaine viscous 2% 10 mL and maalox plus 30 mL (GI COCKTAIL) 40 mL solution 1 ml morphine sulfate 4 mg/ml cartridge (1 source) Opioid Agonist Start: 08-29-2019 End: 08-29-2019 morphine syringe 4 mg sodium chloride 0.154 meq/ml irrigation solution (3 sources) Start: 10-07-2019 End: 10-07-2019 sodium chloride (NS) 0.9 % irrigation solution 500 mL Start: 08-29-2019 End: 08-29-2019 sodium chloride 0.9% (NS) cisco tyson 1,000 mL Start: 08-29-2019 End: 08-29-2019 sodium chloride (PF) (NS) fl ush 5 mL Problems Active Problems Problem Classification Problem Date Documented Da te Episodic/Chronic Administrative/social admission (1 source) Admission statuses; Translations: [Wound check, abscess] Episodic Alcohol-related disorders (5 sources) Alcohol use, 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; Translations: [Alcohol abuse] Onset: 10-08-2018 Chronic Coagulation and hemorrhagic disorders (1 source) Thrombocytopenia, unspecified; Translations: [THROMBOCYTOPENIA UNSPECIFIED] Onset: 10-15-2021 Chronic Deficiency and other anemia (1 source) Other specified anemias; Translations: [OTHER SPECIFIED ANEMIAS] Onset: 10-15-2021 Episodic Epilepsy; convulsions (1 source) Other seizures; Translations: [OTHER SEIZURES] Onset: 10-15-2021 Chronic Fluid and electrolyte disorders (2 sources) Hypokalemia; Translations: [Dehydration] Onset: 07-08-2021 Episodic Headache; including migraine (1 source) Headache; Translations: [Nonintractable headache, unspecified chronicity pattern, unspecified headache type] Episodic Heart valve disorders (3 sources) Heart murmur 12-14-2013 Episodic Malaise and fatigue (1 source) Fatigue; Translations: [Fatigue, unspecified type] Episodic Nonmalignant breast conditions (5 sources) Abscess of breast; Translations: [Abscess of the breast and nipple] Onset: 05-18-2023 05-06-2023 Episodic Other aftercare (1 source) Follow-up status; Translations: [Dressing change] Episodic Other complications of (3 sources) Urinary tract infection in 05-06-2023 Episodic Other connective tissue disease (1 source) Muscle pain; Translations: [Myalgia] Episodic Other nutritional; endocrine; and metabolic disorders (1 source) Hypomagnesemia; Translations: [HYPOMAGNESEMIA] Onset: 10-15-2021 Chronic Other nutritional; endocrine; and metabolic disorders (1 source) Other disorders of phosphorus metabolism; Translations: [OTH DISORDERS PHOSPHORUS METABOLISM] Onset: 10-15-2021 Chronic Other nutritional; endocrine; and metabolic disorders (3 sources) Overweight 05-12-2023 Episodic Other nutritional; endocrine; and metabolic disorders (3 sources) Overweight in adulthood with body mass index of 25 or more but less than 30 05-12-2023 Episodic Pancreatic disorders (not diabetes) (1 source) Alcohol-induced chronic pancreatitis; Translations: [ALCOHOL-INDUCD CHRONIC PANCREATITIS] Onset: 10-15-2021 Chronic Pancreatic disorders (not diabetes) (8 sources) Alcohol induced acute pancreatitis without necrosis or infection; Translations: [Acute pancreatitis without necrosis or infection, unspecified] Onset: 07-08-2021 Episodic Residual codes; unclassified (3 sources) Tobacco user 12-04-2012 Episodic Comment on above: Added secondary to s ocial history documentation. Skin and subcutaneous tissue infections (1 source) Abscess; Translations: [Encounter for recheck of abscess following incision and drainage] Episodic Substance-related disorders (2 sources) Nicotine dependence, cigarettes, uncomplicated; Translations: [Other psychoactive substance abuse, uncomplicated] Onset: 10-15-2021 Chronic Unclassified (1 source) F10.10 - Alcohol abuse, uncomplicated; Translations: [F10.10 - Alcohol abuse, uncomplicated] Onset: 10-08-2018 Unclassified (2 sources) COVID-19 virus infection; Translations: [COVID-19 virus infection] Unclassified (1 source) ALCOHOL ABUSE WITHDRAWAL UNSPCIFIED; Translations: [ALCOHOL ABUSE WITHDRAWAL UNSPCIFIED] Onset: 10-15-2021 Unclassified (4 sources) CONTACT W/AND (SUSP) EXPOS COVID-19; Translations: [CONTACT W/AND (SUSP) EXPOS COVID-19] Onset: 06-06-2021 Unclassified (3 sources) Tobacco use during 11-23-2011 Past or Other Problems Problem Classification Problem Date Documented Date Episodic/Chronic Abdominal pain (5 sources) Epigastric pain; Translations: [Unspecified abdominal pain] Onset: 07-04-2021 Episodic Disorders of teeth and jaw (4 sources) Periapical abscess without sinus; Translations: [PERIAPICAL ABSCESS WITHOUT SINUS] Onset: 04-26-2021 Episodic Nausea and vomiting (2 sources) Nausea and vomiting; Translations: [Nausea with vomiting, unspecified] Onset: 09-02-2021 Episodic Other lower respiratory disease (1 source) Shortness of breath; Translations: [SHORTNESS OF BREATH] Onset: 06-06-2021 Episodic Other upper respiratory disease (1 source) Nasal congestion; Translations: [NASAL CONGESTION] Onset: 06-06-2021 Episodic Residual codes; unclassified (1 source) Procedure and treatment not carried out because of patient's decision for other reasons; Translations: [PROC AND TX NOT CARRIED OUT PT OTH RSN] Onset: 09-02-2021 Episodic Unclassified (1 source) CONTACT W/AND (SUSP) EXPOS COVID-19; Translations: [CONTACT W/AND (SUSP) EXPOS COVID-19] Onset: 06-04-2021 Unclassified (3 sources) cessarian section 06-14-2010 Unclassified (3 sources) Streptococcus agalactiae (organism) 05-06-2023 Unclassified (6 sources) Onset: 09-28-2006 Resolved: 03-31-2012 01-03-2015 Urinary tract infections (1 source) Urinary tract infection, site not specified; Translations: [UTI SITE NOT SPECIFIED] Onset: 09-02-2021 Episodic Results Test Name Value Interpretation Reference Range Facil ity [facility] 06-07-2023 Lab Reports [id number]#1.00T [facility] 06-05-2023 Lab Reports [id number]#1.00T IFF [facility] 06-04-2023 Lab Reports [id number]#1.00T [facility]FF [facility] Lab Reports [id number]#1.00T [facility] Ambulatory Visit Summaryon 1 07-18-2022 Ambulatory Visit Summary SHANNAN LOPEZ :1985 Visit Date:05/18/2023 Ambulatory Visit Instructions Your Diagnosis Left breast abscess Your Care Team Attending Physician - TAMMY DELGADO, Neeraj Hendrix Primary Care Physician - Ashlyn Potter DO This Is Your Medications List Contact prescribing physician if questions or concerns Misc Prescription (daily dressing change) Procedures Performed section, section, Mastotomy with drainage of deep abscess. Medications What How Much When Instructions Unchanged Misc Prescription (daily dressing change) 0 Complete daily damp to dry dressing change to left breast until wound is healed Contact prescribing physician if questions or concerns Allergies Tape (Redness, Itching) penicillin Problems Ongoing - Any problem that you are currently receiving treatment for. BMI 28.0-28.9,adult Heart Murmur Left breast abscess Overweight Historical - Any problem that you are no longer receiving treatment for. cessarian section Group B streptococcus Urinary tract infection complicating Patient Survey You may receive a survey via text or e-mail asking about your office visit. Please share your experience with us by completing your survey. We appreciate your feedback and thank you for choosing us for your care. [facility] General Surgery Office/Clini c Noteon 05-18-2023 General Surgery Office/Clinic Note Chief Complaint post operative follow up HPI Staff 18 day post operative follow up post I/D left breast abscess. Completing daily dressing changes at [facility]. Reports moderate intermittent discomfort, taking Ibuprofen 800mg TID. Denies bleeding or drainage. History of Present Illness 18 days s/p excision subareolar abscess by Dr Gil; doing well, area packed daily, no drainage, minimal soreness. Review of Systems ROS - Provider Constitutional: no fever, no sweats, no weight loss. Eyes: no glasses, no blurred vision, no visual loss. ENMT: no dentures, no hoarseness, no swallowing difficulties, no hearing loss, no ear infection(s), no nose bleeds. Cardiovascular: normal blood pressure, no chest pain, regular heartbeat, no heart murmur. Respiratory: no shortness of breath, no cough, no asthma, no wheezing. Gastrointestinal: no nausea, no vomiting, no diarrhea, no constipation, no blood in stool, no change in bowel habits, no abdominal pain, no hepatitis. Genitourinary: no kidney stones, no urine infection, no dysuria. Musculoskeletal: no pain, no weakness. Skin: no changing moles, no rash, no skin lumps. Neurologic: no seizures, no epilepsy, no headache. Psychiatric: no emotional or psychiatric problem. Heme/Lymph: no bleeding problems, no anemia, no blood clots, no transfusions. Allergy/Immunologic: no swollen lymph nodes/glands, no IV drug abuse. Other: Additional ROS info: Except as noted in the above Review of Systems and in the History of Present Illness, all other systems have been reviewed and are negative or noncontributory. Physical Exam skin: wound clean, granulating, no cellulitis, no drainage or exudate; shallow Assessment/Plan 1. Left breast abscess (N61.1: Abscess of the breast and nipple) doing well, continue daily packing; will check wound next Wednesday at the hospital; call sooner if problems/questions. Follow-up No qualifying data available Problem List/Past Medical History Ongoing BMI 28.0-28.9,adult Heart Murmur Left breast abscess Overweight Historical cessarian section Group B streptococcus Urinary tract infection complicating Procedure/Surgical History section, section, Mastotomy with drainage of deep abscess. Medications daily dressing change, 0 Allergies Tape (Redness, Itching) penicillin Social History Alcohol - Denies Alcohol Use, 03/17/2012 Past, Liquor, 3-5 times per week, 05/12/2023 Substance Abuse Current, Marijuana, 1-2 times per week, 05/12/2023 Tobacco 10 or more cigarettes (1/2 pack or more)/day in last 30 days Tobacco Use:. Never Smokeless Tobacco Use:. Cigarettes, 1 per day. Started age 14.0 Years. Yes, 05/12/2023 Family History Alcoholism: Sister. Alzheimer's disease: Grandparent. COPD: Father. Thyroid cancer: Mother. Immunizations Vaccine Date Status Comments influenza virus vaccine, inactivated - Not Given Patient Refuses [facility] Comment on above: Result Comment: Elec tronically Signed By: TAMMY DELGADO, Neeraj Wolff\Date and Time Signed: 05/18/23 13:27 EST General Surgery Office/Clini c Noteon 05-13-2023 General Surgery Office/Clinic Note Chief Complaint post operative follow up HPI Staff 12 day post operative follow up post mastotomy I/D and wide debridement subareolar abscess left breast completed by Dr. Gil while in-patient. Patient completing daily out-patient dressing changes/wound packing. Reports moderate discomfort with dressing changes and overall discomfort. Taking Ibuprofen 600mg PRN. Denies bleeding or drainage. History of Present Illness 12 days s/p excision acute and chronic left breast subareolar abscess with major ductal excision; getting dressing changes daily at infusion center at [facility]; completed course of antibiotics; taking ibuprofen as needed for pain; no drainage, no fevers; pathology with chronic inflammation. Review of Systems PHQ Score Initial Depression Screen Score: 0 SCORE ROS - Provider Constitutional: no fever, no sweats, no weight loss. Eyes: no glasses, no blurred vision, no visual loss. ENMT: no dentures, no hoarseness, no swallowing difficulties, no hearing loss, no ear infection(s), no nose bleeds. Cardiovascular: normal blood pressure, no chest pain, regular heartbeat, no heart murmur. Respiratory: no shortness of breath, no cough, no asthma, no wheezing. Gastrointestinal: no nausea, no vomiting, no diarrhea, no constipation, no blood in stool, no change in bowel habits, no abdominal pain, no hepatitis. Genitourinary: no kidney stones, no urine infection, no dysuria. Musculoskeletal: no pain, no weakness. Skin: no changing moles, no rash, no skin lumps. Neurologic: no seizures, no epilepsy, no headache. Psychiatric: no emotional or psychiatric problem. Heme/Lymph: no bleeding problems, no anemia, no blood clots, no transfusions. Allergy/Immunologic: no swollen lymph nodes/glands, no IV drug abuse. Other: Additional ROS info: Except as noted in the above Review of Systems and in the History of Present Illness, all other systems have been reviewed and are negative or noncontributory. Physical Exam Vitals & Measurements RR: 16 HT: 64 in HT: 162.5 cm WT: 74.8 kg WT: 164.56 lb BMI: 28.33 skin: left breast subareolar wound, clean, granulating, no drainage, lateral areolar skin pulled down into wound. Assessment/Plan 1. Left breast abscess (N61.1: Abscess of the breast and nipple) doing well; continue daily dressing changes; f/u next week; elisa likely require scar revision if areolar skin remains retracted. Orders: Misc Prescription, daily dressing change, Complete daily damp to dry dressing change to left breast until wound is healed, 0, 0, Print Requisition, Supply Follow-up No qualifying data available Problem List/Past Medical History Ongoing BMI 28.0-28.9,adult Heart Murmur Left breast abscess Overweight Historical cessarian section Group B streptococcus Urinary tract infection complicating Procedure/Surgical History section, section, Mastotomy with drainage of deep abscess. Medications daily dressing change, 0 Allergies Tape (Redness, Itching) penicillin Social History Alcohol - Denies Alcohol Use, 03/17/2012 Past, Liquor, 3-5 times per week, 05/12/2023 Substance Abuse Current, Marijuana, 1-2 times per week, 05/12/2023 Tobacco 10 or more cigarettes (1/2 pack or more)/day in last 30 days Tobacco Use:. Never Smokeless Tobacco Use:. Cigarettes, 1 per day. Started age 14.0 Years. Yes, 05/12/2023 Family History Alcoholism: Sister. Alzheimer's disease: Grandparent. COPD: Father. Thyroid cancer: Mother. Immunizations Vaccine Date Status Comments influenza virus vaccine, inactivated - Not Given Patient Refuses [facility] Comment on above: Result Comment: Elec tronically Signed By: Neeraj MUNOZ MD\.br\Date and Time Signed: 05/13/23 19:09 EST Ambulatory Visit Summaryon 1 07-12-2022 Ambulatory Visit Summary JOHN SHANNAN A :1985 Visit Date:05/12/2023 Ambulatory Visit Instructions Your Care Team Attending Physician - Neeraj MUNOZ MD Primary Care Physician - Ashlyn Potter DO Procedures Performed section, section, Mastotomy with drainage of deep abscess. Discharge Vitals Respiratory Rate 16 Height 162.5 cm Height 64 in Weight 74.8 kg Weight 164.56 lb BMI 28.33 Medications and Immunizations Administered Not Given influenza virus vaccine, inactivated, Patient Refuses Allergies Tape (Redness, Itching) penicillin Problems Ongoing - Any problem that you are currently receiving treatment for. BMI 28.0-28.9,adult Heart Murmur Left breast abscess Overweight Historical - Any problem that you are no longer receiving treatment for. cessarian section Group B streptococcus Urinary tract infection complicating Patient Survey You may receive a survey via text or e-mail asking about your office visit. Please share your experience with us by completing your survey. We appreciate your feedback and thank you for choosing us for your care. [facility] Lab Reportson 05-11-2023 Lab Reports [id number] FF [facility] Pathology Noteon 05-10-2023 Pathology Note [id number]. 00TIFF [facility] Consultation Noteon 05-05-20 Consultation Note [id number]#1.00TIFF [facility] Consultation Note [id number]#1.00TIFF [facility] Operative Reporton Operative Report [id number]#1.00TIFF [facility] Consultation Noteon 05-04-20 Consultation Note [id number]#[id number] [facility] ED Note-Physicianon 05-04-20 ED Note-Physician [id number] #1.00TIFF [facility] ED Note-Physician [id number] #1.00TIFF [facility] AMMONIAon 10-12-2021 Ammonia (P) [Moles/Vol] 21 umol/L Normal 11-32 T [facility] Comment on above: Performed By: #### P TT, PT #### [facility] [address] [place] [address] Dr. Celi Guerin AMYLASEon 10-12-2021 Amylase [Catalytic activity/Vol] 535 U/L Critically hig h 25-115 [facility] Comment on above: Result Comment: repe ated Performed By: #### C MP, LIPA, ASHLYN #### [facility] [address] [place] [address] Dr. Celi Guerin CBC AUTO DIFFon 10-12-2021 BASO # 0.0 103/ul Normal 0.0-0.1 [facility] Comment on above: Performed By: #### P TT, PT #### [facility] [address] [place] [address] Dr. Celi Guerin Basophils/100 WBC (Bld) 0.1 % Critically low 0.2-2.0 [facility] Comment on above: Performed By: #### P TT, PT #### [facility] [address] [place] [address] Dr. Celi Guerin EO # 0.0 103/ul Normal 0.0-0.7 [facility] Comment on above: Performed By: #### P TT, PT #### [facility] [address] [place] [address] Dr. Celi Guerin Eosinophils/100 WBC (Bld) 0.4 % Critically low 0.9-7. 0 [facility] Comment on above: Performed By: #### P TT, PT #### [facility] [address] [place] [address] Dr. Celi Guerin Erythrocyte distribution wid th (RBC) [Ratio] 18.6 % Critically high 11.0-15.0 [facility] Comment on above: Performed By: #### P TT, PT #### [place] [facility] [address] [place] [address] Dr. Celi Guerin Hematocrit (Bld) [Volume fraction] 29.3 % Critically low 36.0-48.0 [facility] pital Comment on above: Performed By: #### P TT, PT #### [place] [facility] [address] [place] [address] Dr. Celi Guerin Hemoglobin (Bld) [Mass/Vol] 9.4 g/dL Critically low 12.0 -16.0 [facility] Comment on above: Performed By: #### P TT, PT #### [place] [facility] [address] [place] [address] Dr. Celi Guerin IG # 0.04 10e3/ul Critically high 0.00-0.03 [facility] [place] [facility] Comment on above: Performed By: #### P TT, PT #### [place] [facility] [address] [place] [address] Dr. Celi Guerin IG % 0.5 % Normal 0.0-0.5 [facility] Comment on above: Performed By: #### P TT, PT #### [place] [facility] [address] [place] [address] Dr. Celi Guerin LYMPH # 1.1 103/ul Critically low 1.2-3.[address] [facility] Comment on above: Performed By: #### P TT, PT #### [place] [facility] [address] [place] [address] Dr. Celi Guerin Lymphocytes/100 WBC (Bld) 14.2 % Critically low 20.5-6 0.0 [facility] Comment on above: Performed By: #### P TT, PT #### [place] [facility] [address] [place] [address] Dr. Celi Guerin MANUAL DIFF REQ NO Normal [facility] Comment on above: Performed By: #### P TT, PT #### [place] [facility] [address] [place] [address] Dr. Celi Guerin MCH (RBC) [Entitic mass] 25.8 pg Critically low 26.7-34 .0 [facility] Comment on above: Performed By: #### P TT, PT #### [place] [facility] [address] [place] [address] Dr. Celi Guerin MCHC (RBC) [Mass/Vol] 32.1 g/dL Normal 29.9-35.2 [facility] [place] [facility] Comment on above: Performed By: #### P TT, PT #### [place] [facility] [address] [place] [address] Dr. Celi Guerin MCV (RBC) [Entitic vol] 80.5 fL Critically low 81.0-99. 0 [facility] [place] [facility] Comment on above: Performed By: #### P TT, PT #### [place] [facility] [address] [place] [address] Dr. Celi Guerin MONO # 0.7 103/ul Normal 0.3-0.8 [facility] Comment on above: Performed By: #### P TT, PT #### [place] [facility] [address] [place] [address] Dr. Celi Guerin Monocytes/100 WBC (Bld) 8.4 % Normal 1.7-12.0 [facility] Comment on above: Performed By: #### P TT, PT #### [place] [facility] [address] [place] [address] Dr. Celi Guerin NEUT # 5.9 103/ul Normal 1.4-6.5 [facility] Comment on above: Performed By: #### P TT, PT #### [place] [facility] [address] [place] [address] Dr. Celi Guerin Neutrophils/100 WBC (Bld) 76.4 % Critically high 43.0- 75.0 [facility] [place] [facility] Comment on above: Performed By: #### P TT, PT #### [place] [facility] [address] [place] [address] Dr. Celi Guerin PLT 63 103/ul Critically low 150-[address] [facility] Comment on above: Performed By: #### P TT, PT #### [place] [facility] [address] [address] [address] Celi Guerin RBC 3.64 106/ul Critically low 4.20-5.40 [facility] Comment on above: Performed By: #### P TT, PT #### [place] [facility] [address] [place] [address] Dr. Celi Guerin WBC 7.8 103/ul Normal 4.0-11.0 [facility] ospital Comment on above: Performed By: #### P TT, PT #### [place] [facility] [address] [place] [address] Dr. Celi Guerin LIPASEon 10-12-2021 Lipase [Catalytic activity/Vol] U/L Critically high 23.0-300.0 [facility] Comment on above: Result Comment: repe ated Performed By: #### E YURI ESTRELLARO #### [place] [facility] [address] [place] [address] Dr. Celi Guerin PROF 14(COMP METB)on 022 Albumin [Mass/Vol] 2.9 g/dL Critically low 3.4-5.0 [facility] Comment on above: Performed By: #### C MP LIPA, ASHLYN #### [place] [facility] [address] [place] [address] Dr. Celi Guerin Albumin/Globulin [Mass ratio] 1.0 {ratio} Normal [facility] Comment on above: Performed By: #### C MP LIPA, ASHLYN #### [place] [facility] [address] [place] [address] Dr. Celi Guerin ALP [Catalytic activity/Vol] 88 U/L Normal 46-116 [facility] Comment on above: Performed By: #### C MP, LIPA, ASHLYN #### [place] [facility] [address] [place] [address] Dr. Celi Guerin ALT [Catalytic activity/Vol] 34 U/L Normal 14-59 [facility] Comment on above: Performed By: #### C MP LIPA, ASHLYN #### [place] [facility] [address] [place] [address] Dr. Celi Guerin Anion gap [Moles/Vol] 12.9 mmol/L Normal [facility] Comment on above: Performed By: #### C MP, LIPA, ASHLYN #### [place] [facility] [address] [place] [address] Dr. Celi Guerin AST [Catalytic activity/Vol] 70 U/L Critically high 15 -37 [facility] Comment on above: Performed By: #### C EDE MONCADA, ASHLYN #### [place] [facility] [address] [place] [address] Dr. Celi Guerin Bilirubin [Mass/Vol] 1.2 mg/dL Normal 0.2-1.3 [facility] Comment on above: Performed By: #### C ANTWAN LIPA, ASHLYN #### [place] [facility] [address] [place] [address] Dr. Celi Guerin Calcium [Mass/Vol] 7.4 mg/dL Critically low 8.5-10.1 [facility] Comment on above: Performed By: #### C ANTWAN LIPA, ASHLYN #### [place] [facility] [address] [place] [address] Dr. Celi Guerin Chloride [Moles/Vol] 98 mmol/L Normal 98-107 [facility] Comment on above: Performed By: #### C ANTWAN LIPA, ASHLYN #### [place] [facility] [address] [place] [address] Dr. Celi Guerin CO2 [Moles/Vol] 23.9 mmol/L Normal 22.0-30.0 [facility] Comment on above: Performed By: #### C ANTWAN LIPA, ASHLYN #### [place] [facility] [address] [place] [address] Dr. Celi Guerin Creatinine [Mass/Vol] 0.41 mg/dL Critically low 0.52-1.04 [facility] Comment on above: Performed By: #### C ANTWAN LIPA, ASHLYN #### [place] [facility] [address] [place] [address] Dr. Celi Guerin EGFR-AF DANISH >60 Normal >=60 [facility] Comment on above: Performed By: #### C ANTWAN LIPA, ASHLYN #### [place] [facility] [address] [place] [address] Dr. Celi Guerin EGFR-NON AF DANISH >60 Normal >=60 [facility] Comment on above: Performed By: #### C ANTWAN LIPA, ASHLYN #### [place] [facility] [address] [place] [address] Dr. Celi Guerin Globulin (S) [Mass/Vol] 2.9 g/dL Normal [facility] Comment on above: Performed By: #### C MP, LIPA, ASHLYN #### [place] [facility] [address] [place] [address] Dr. Celi Guerin Glucose [Mass/Vol] 82 mg/dL Normal 74-106 [facility] Comment on above: Performed By: #### C MP, LIPA, ASHLYN #### [place] [facility] [address] [place] [address] Dr. Celi Guerin Potassium [Moles/Vol] 2.8 mmol/L Critically low 3.4-5.0 [facility] Comment on above: Result Comment: repe ated Performed By: #### C MP LIPA, ASHLYN #### [place] [facility] [address] [place] [address] Dr. Celi Guerin Protein [Mass/Vol] 5.8 g/dL Critically low 6.1-8.2 [facility] Comment on above: Performed By: #### C ANTWAN LIPA, ASHLYN #### [place] [facility] [address] [place] [address] Dr. Celi Guerin Sodium [Moles/Vol] 131 mmol/L Critically low 137-145 [facility] Comment on above: Performed By: #### C ANTWAN LIPA, ASHLYN #### [place] [facility] [address] [place] [address] Dr. Celi Guerin Urea nitrogen [Mass/Vol] 2.0 mg/dL Critically low 7.0-18. 0 [facility] Comment on above: Performed By: #### C MP LIPA, ASHLYN #### [place] [facility] [address] [place] [address] Dr. Celi Guerin Urea nitrogen/Creatinine [Mass ratio] 4.9 mg/mg Normal [facility] Comment on above: Performed By: #### C MP, LIPA, ASHLYN #### [place] [facility] [address] [place] [address] Dr. Celi Guerin AMMONIAon 10-11-2021 Ammonia (P) [Moles/Vol] 23 umol/L Normal 11-32 [facility] Comment on above: Performed By: #### D RUGRPD #### [place] [facility] [address] [place] [address] Dr. Celi Guerin AMYLASEon 10-11-2021 Amylase [Catalytic activity/Vol] 1078 U/L Critically high 25-115 [facility] Comment on above: Result Comment: repe ated Performed By: #### D RUGRPD #### [place] [facility] [address] [place] [address] Dr. Celi Guerin CBC AUTO DIFFon 10-11-2021 BASO # 0.0 103/ul Normal 0.0-0.1 [facility] Comment on above: Performed By: #### P TT, PT #### [place] [facility] [address] [place] [address] Dr. Celi Guerin Basophils/100 WBC (Bld) 0.1 % Critically low 0.2-2.0 [facility] Comment on above: Performed By: #### P TT, PT #### [place] [facility] [address] [place] [address] Dr. Celi Guerin EO # 0.0 103/ul Normal 0.0-0.7 [facility] Comment on above: Performed By: #### P TT, PT #### [place] [facility] [address] [place] [address] Dr. Celi Guerin Eosinophils/100 WBC (Bld) 0.1 % Critically low 0.9-7. 0 [facility] Comment on above: Performed By: #### P TT, PT #### [place] [facility] [address] [place] [address] Dr. Celi Guerin Erythrocyte distribution wid th (RBC) [Ratio] 18.5 % Critically high 11.0-15.0 [facility] Comment on above: Performed By: #### P TT, PT #### [place] [facility] [address] [place] [address] Dr. Celi Guerin Hematocrit (Bld) [Volume fraction] 33.2 % Critically low 36.0-48.0 [facility] pital Comment on above: Performed By: #### P TT, PT #### [place] [facility] [address] [place] [address] Dr. Celi Guerin Hemoglobin (Bld) [Mass/Vol] 10.5 g/dL Critically low 12.0 -16.0 [facility] Comment on above: Performed By: #### P TT, PT #### [place] [facility] [address] [place] [address] Dr. Celi Guerin IG # 0.03 10e3/ul Normal 0.00-0.03 [facility] [place] [facility] Comment on above: Performed By: #### P TT, PT #### [place] [facility] [address] [place] [address] Dr. Celi Guerin IG % 0.4 % Normal 0.0-0.5 [facility] Comment on above: Performed By: #### P TT, PT #### [place] [facility] [address] [place] [address] Dr. Celi Guerin LYMPH # 0.8 103/ul Critically low 1.2-3.[address] [facility] Comment on above: Performed By: #### P TT, PT #### [place] [facility] [address] [place] [address] Dr. Celi Guerin Lymphocytes/100 WBC (Bld) 10.6 % Critically low 20.5-6 0.0 [facility] Comment on above: Performed By: #### P TT, PT #### [place] [facility] [address] [place] [address] Dr. Celi Guerin MANUAL DIFF REQ NO Normal [facility] Comment on above: Performed By: #### P TT, PT #### [place] [facility] [address] [place] [address] Dr. Celi Guerin MCH (RBC) [Entitic mass] 25.9 pg Critically low 26.7-34 .0 [facility] Comment on above: Performed By: #### P TT, PT #### [facility] [address] [place] [address] Dr. Celi Guerin MCHC (RBC) [Mass/Vol] 31.6 g/dL Normal 29.9-35.2 [facility] Comment on above: Performed By: #### P TT, PT #### [place] [facility] [address] [place] [address] Dr. Celi Guerin MCV (RBC) [Entitic vol] 82.0 fL Normal 81.0-99.0 [facility] Comment on above: Performed By: #### P TT, PT #### [facility] [address] [place] [address] Dr. Celi Guerin MONO # 0.4 103/ul Normal 0.3-0.8 [facility] Comment on above: Performed By: #### P TT, PT #### [facility] [address] [place] [address] Dr. Celi Guerin Monocytes/100 WBC (Bld) 5.6 % Normal 1.7-12.0 [facility] Comment on above: Performed By: #### P TT, PT #### [place] [facility] [address] [place] [address] Dr. Celi Guerin NEUT # 6.4 103/ul Normal 1.4-6.5 [facility] Comment on above: Performed By: #### P TT, PT #### [place] [facility] [address] [place] [address] Dr. Celi Guerin Neutrophils/100 WBC (Bld) 83.2 % Critically high 43.0- 75.0 [facility] Comment on above: Performed By: #### P TT, PT #### [facility] [address] [place] [address] Dr. Celi Guerin Platelet mean volume (Bld) [ Entitic vol] 11.9 fL Normal 9.5-13.5 [facility] Comment on above: Performed By: #### P TT, PT #### [facility] [address] [place] [address] Dr. Celi Guerin PLT 59 103/ul Critically low 150-450 [facility] Comment on above: Performed By: #### P TT, PT #### [facility] [address] [place], [place] [address] Dr. Celi Guerin RBC 4.05 106/ul Critically low 4.20-5.40 [facility] Comment on above: Performed By: #### P TT, PT #### [place] [facility] [address] [place], [place] [address] Dr. Celi Guerin WBC 7.7 103/ul Normal 4.0-11.0 [facility] Comment on above: Performed By: #### P TT, PT #### [place] [facility] [address] [place], [place] [address] ABD/PELVIS WO CONon 10-11 CT ABD/PELVIS WO CON EXAM: CT ABD/PELVIS WO CON INDICATION: Generalized abdominal pain. Disoriented. History of pancreatitis. COMPARISON: CT abdomen pelvis 08/30/2021. TECHNIQUE: Multiple contiguous axial CT images of the abdomen and pelvis were obtained without the use of intravenous contrast. Sagittal and coronal reconstructions were performed. Dose reduction techniques were achieved by using: automated exposure control and/or adjustment of mA and /or kV according to patient size and/or use of iterative reconstruction technique. FINDINGS: Evaluation of visceral organs limited by noncontrast technique. LOWER CHEST: Trace bilateral pleural effusions. ABDOMEN: Severe peripancreatic inflammatory changes and edema. No organizing peripancreatic fluid collection. Homogeneous hyperattenuation of the pancreas. However, unable to adequately evaluate for necrosis as this is a noncontrast exam. Enlarged liver with severe diffuse fatty infiltration. Normal gallbladder, spleen, adrenal glands, and kidneys. Normal caliber bowel. Colonic diverticulosis without diverticulitis. Nonaneurysmal abdominal aorta. Small volume ascites. PELVIS: Meng catheter in place. Unremarkable uterus and adnexa. No pelvic adenopathy. MUSCULOSKELETAL: No acute osseous abnormality or suspicious osseous lesion. IMPRESSION: 1. Severe changes of acute interstitial pancreatitis. No peripancreatic fluid collection. 2. Hepatomegaly and severe hepatic steatosis. 3. Small volume ascites and trace bilateral pleural effusions. Electronically authenticated by: RADHA RINALDI Date: 2021-10-11 09:36 Normal [facility] CT HEAD WO CONon 10-11-2021 CT HEAD WO CON EXAMINATION: CT HEAD WO CON HISTORY: HEADACHE COMPARISON: None. TECHNIQUE: CT examination of the head without IV contrast. Dose reduction techniques were achieved by using automated exposure control and/or adjustment of mA and/or kV according to patient size and/or use of iterative reconstruction technique. FINDINGS: Acute: No hemorrhage, herniation, or hydrocephalus. No evidence of recent infarct. Brain: Brain parenchyma within normal limits in density and volume for age. Vessels: No abnormal intravascular density to suggest thrombosis. Bones: No suspicious lesion in the calvarium or skull base. No depressed skull fracture. Other: Paranasal sinus mucosal thickening. Extracranial soft tissues otherwise unremarkable. IMPRESSION: 1. No acute intracranial pathology. 2. Paranasal sinus mucosal thickening. Electronically authenticated by: OSMIN MICHAEL Date: 2021-10-11 09:38 Normal [facility] LIPASEon 10-11-2021 Lipase [Catalytic activity/Vol] U/L Critically high 23.0-300.0 [facility] Comment on above: Result Comment: repe ated Performed By: #### D RUGRPD #### [facility] [address] [place] [address] Dr. Celi Guerin MAGNESIUMon 10-11-2021 Magnesium [Mass/Vol] 1.7 mg/dL Normal 1.6-2.3 [facility] Comment on above: Performed By: #### P TT, PT #### [place] [facility] [address] [place] [address] Dr. Celi Guerin PHOSPHORUSon 10-11-2021 Phosphate [Mass/Vol] 1.5 mg/dL Critically low 2.5-4.5 [facility] Comment on above: Performed By: #### P TT, PT #### [place] [facility] [address] [place] [address] Dr. Celi Guerin PROF 14(COMP METB)on 022 Albumin [Mass/Vol] 3.0 g/dL Critically low 3.4-5.0 Th [facility] Comment on above: Performed By: #### P TT, PT #### [place] [facility] [address] [place] [address] Dr. Celi Guerin Albumin/Globulin [Mass ratio] 1.0 {ratio} Normal [facility] [place] [facility] Comment on above: Performed By: #### P TT, PT #### [place] [facility] [address] [address] [address] Celi Guerin ALP [Catalytic activity/Vol] 78 U/L Normal 46-116 [facility] Comment on above: Performed By: #### P TT, PT #### [place] [facility] [address] [address] [address] Celi Guerin ALT [Catalytic activity/Vol] 31 U/L Normal 14-59 [facility] Comment on above: Performed By: #### P TT, PT #### [place] [facility] [address] [address] [address] Celi Guerin Anion gap [Moles/Vol] 16.8 mmol/L Normal [facility] Comment on above: Performed By: #### P TT, PT #### [place] [facility] [address] [address] [address] Celi Guerin AST [Catalytic activity/Vol] 48 U/L Critically high 15 -37 [facility] Comment on above: Performed By: #### P TT, PT #### [place] [facility] [address] [address] [address] Celi Guerin Bilirubin [Mass/Vol] 1.1 mg/dL Normal 0.2-1.3 [facility] Comment on above: Performed By: #### P TT, PT #### [place] [facility] [address] [address] [address] Celi Guerin Calcium [Mass/Vol] 7.6 mg/dL Critically low 8.5-10.1 [facility] Comment on above: Performed By: #### P TT, PT #### [facility] [address] [address] [address] Celi Guerin Chloride [Moles/Vol] 97 mmol/L Critically low 98-107 [facility] Comment on above: Performed By: #### P TT, PT #### [place] [facility] [address] [address] [address] Celi Guerin CO2 [Moles/Vol] 22.3 mmol/L Normal 22.0-30.0 [facility] Comment on above: Performed By: #### P TT, PT #### [place] [facility] [address] [address] [address] Celi Guerin Creatinine [Mass/Vol] 0.39 mg/dL Critically low 0.52-1.04 [facility] Comment on above: Performed By: #### P TT, PT #### [facility] [address] [address] [address] Celi Guerin EGFR-AF DANISH >60 Normal >=60 [facility] Comment on above: Performed By: #### P TT, PT #### [place] [facility] [address] [address] [address] Celi Guerin EGFR-NON AF DANISH >60 Normal >=60 [facility] Comment on above: Performed By: #### P TT, PT #### [place] [facility] [address] [place] [address] Dr. Celi Guerin Globulin (S) [Mass/Vol] 3.1 g/dL Normal T [facility] Comment on above: Performed By: #### P TT, PT #### [place] [facility] [address] [address] [address] Celi Guerin Glucose [Mass/Vol] 63 mg/dL Critically low 74-106 [facility] Comment on above: Performed By: #### P TT, PT #### [place] [facility] [address] [place] [address] Dr. Celi Guerin Potassium [Moles/Vol] 3.1 mmol/L Critically low 3.4-5.0 [facility] Comment on above: Performed By: #### P TT, PT #### [facility] [address] [address] [address] Celi Guerin Protein [Mass/Vol] 6.1 g/dL Normal 6.1-8.2 [facility] Comment on above: Performed By: #### P TT, PT #### [place] [facility] [address] [address] [address] Celi Guerin Sodium [Moles/Vol] 133 mmol/L Critically low 137-145 [facility] Comment on above: Performed By: #### P TT, PT #### [facility] [address] [place] [address] Dr. Celi Guerin Urea nitrogen [Mass/Vol] 3.0 mg/dL Critically low 7.0-18. 0 [facility] Comment on above: Performed By: #### P TT, PT #### [facility] [address] [place] [address] Dr. Celi Guerin Urea nitrogen/Creatinine [Mass ratio] 7.7 mg/mg Normal [facility] Comment on above: Performed By: #### P TT, PT #### [facility] [address] [place] [address] Dr. Celi Guerin AMMONIAon 10-10-2021 Ammonia (P) [Moles/Vol] 39 umol/L Critically high 11-32 [facility] Comment on above: Performed By: #### E RUR, UMICRO #### [facility] [address] [place] [address] Dr. Celi Guerin AMYLASEon 10-10-2021 Amylase [Catalytic activity/Vol] 892 U/L Critically hig h 25-115 [facility] Comment on above: Result Comment: Test Repeated. Critical ValueVerified Performed By: #### D RUGRPD #### [facility] [address] [place] [address] Dr. Celi Guerin CBC AUTO DIFFon 10-10-2021 BASO # 0.0 103/ul Normal 0.0-0.1 [facility] Comment on above: Performed By: #### P TT, PT #### [facility] [address] [place] [address] Dr. Celi Guerin Basophils/100 WBC (Bld) 0.2 % Normal 0.2-2.0 [facility] Comment on above: Performed By: #### P TT, PT #### [facility] [address] [place] [address] Dr. Celi Guerin EO # 0.0 103/ul Normal 0.0-0.7 [facility] Comment on above: Performed By: #### P TT, PT #### [facility] [address] [place] [address] Dr. Celi Guerin Eosinophils/100 WBC (Bld) 0.0 % Critically low 0.9-7. 0 [facility] [place] [facility] Comment on above: Performed By: #### P TT, PT #### [facility] [address] [place] [address] Dr. Celi Guerin Erythrocyte distribution wid th (RBC) [Ratio] 18.2 % Critically high 11.0-15.0 [facility] Comment on above: Performed By: #### P TT, PT #### [facility] [address] [place], [place] [address] Dr. Celi Guerin Hematocrit (Bld) [Volume fraction] 32.8 % Critically low 36.0-48.0 [facility] Comment on above: Performed By: #### P TT, PT #### [facility] [address] [place] [address] Dr. Celi Guerin Hemoglobin (Bld) [Mass/Vol] 10.2 g/dL Critically low 12.0 -16.0 [facility] Comment on above: Performed By: #### P TT, PT #### [facility] [address] [place] [address] Dr. Celi Guerin IG # 0.04 10e3/ul Critically high 0.00-0.03 [facility] Comment on above: Performed By: #### P TT, PT #### [facility] [address] [place] [address] Dr. Celi Guerin IG % 0.7 % Critically high 0.0-0.5 [facility] Comment on above: Performed By: #### P TT, PT #### [facility] [address] [place] [address] Dr. Celi Guerin LYMPH # 0.9 103/ul Critically low 1.2-3.[address] [facility] Comment on above: Performed By: #### P TT, PT #### [facility] [address] [place] [address] Dr. Celi Guerin Lymphocytes/100 WBC (Bld) 15.4 % Critically low 20.5-6 0.0 [facility] Comment on above: Performed By: #### P TT, PT #### [facility] [address] [place] [address] Dr. Celi Guerin MANUAL DIFF REQ NO Normal [facility] Comment on above: Performed By: #### P TT, PT #### [facility] [address] [place] [address] Dr. Celi Guerin MCH (RBC) [Entitic mass] 26.0 pg Critically low 26.7-34 .0 [facility] Comment on above: Performed By: #### P TT, PT #### [facility] [address] [place] [address] Dr. Celi Guerin MCHC (RBC) [Mass/Vol] 31.1 g/dL Normal 29.9-35.2 [facility] Comment on above: Performed By: #### P TT, PT #### [facility] [address] [place] [address] Dr. Celi Guerin MCV (RBC) [Entitic vol] 83.5 fL Normal 81.0-99.0 [facility] Comment on above: Performed By: #### P TT, PT #### [facility] [address] [place] [address] Dr. Celi Guerin MONO # 0.4 103/ul Normal 0.3-0.8 [facility] Comment on above: Performed By: #### P TT, PT #### [facility] [address] [place] [address] Dr. Celi Guerin Monocytes/100 WBC (Bld) 7.5 % Normal 1.7-12.0 [facility] Comment on above: Performed By: #### P TT, PT #### [facility] [address] [place] [address] Dr. Celi Guerin NEUT # 4.5 103/ul Normal 1.4-6.5 [facility] ost[facility] Comment on above: Performed By: #### P TT, PT #### [facility] [address] [place] [address] Dr. Celi Guerin Neutrophils/100 WBC (Bld) 76.2 % Critically high 43.0- 75.0 [facility] Comment on above: Performed By: #### P TT, PT #### [facility] [address] [place] [address] Dr. Celi Guerin Platelet mean volume (Bld) [ Entitic vol] 10.6 fL Normal 9.5-13.5 [facility] Comment on above: Performed By: #### P TT, PT #### [facility] [address] [place] [address] Dr. Celi Guerin PLT 53 103/ul Critically low 150-[address] [facility] Comment on above: Performed By: #### P TT, PT #### [facility] [address] [place] [address] Dr. Celi Guerin RBC 3.93 106/ul Critically low 4.20-5.40 [facility] Comment on above: Performed By: #### P TT, PT #### [facility] [address] [place] [address] Dr. Celi Guerin WBC 5.9 103/ul Normal 4.0-11.0 [facility] Comment on above: Performed By: #### P TT, PT #### [facility] [address] [place] [address] Dr. Celi Guerin DRUG SCREEN RAPID (URINE)on 10-10-2021 AMP Negative Normal NEGATIVE [facility] Comment on above: Performed By: #### D RUGRPD #### [facility] [address] [place] [address] Dr. Celi Guerin BAR Positive Abnormal NEGATIVE [facility] Comment on above: Performed By: #### D RUGRPD #### [facility] [address] [place] [address] Dr. Celi Guerin BUP Negative Normal NEGATIVE [facility] Comment on above: Performed By: #### D RUGRPD #### [facility] [address] [place] [address] Dr. Celi Guerin BZO Positive Abnormal NEGATIVE [facility] Comment on above: Performed By: #### D RUGRPD #### [facility] [address] [place] [address] Dr. Celi Guerni REED Negative Normal NEGATIVE [facility] Comment on above: Performed By: #### D RUGRPD #### [facility] [address] [place] [address] Dr. Celi Guerin CUT-OFFS SEE BELOW Normal [facility] Comment on above: Result Comment: AMP (Amphetamine): 500ng/mL, BAR (Barbituates): 200 ng/mL, BZO (Benzodiazepines): 150 ng/mL, BUP (Buprenorphine): 10 ng/mL, REED (Cocaine): 150 ng/mL, mAMP (Methamphetamine): 500 ng/mL, MTD (Methadone): 200 ng/mL, OPI (Opiates): 100 ng/mL, OXY (Oxycodone): 100 ng/mL, PCP (Phencyclidine): 25 ng/mL, PPX (Propoxyphene): 300 ng/mL, THC (Cannabinoids): 50 ng/mL, TCA (Trycyclic Antidepressants): 300 ng/mL Performed By: #### D RUGRPD #### [facility] [address] [place] [address] Dr. Celi Guerin DRUG CUT HEADER DRUG CLASS TEST SYST EM CUT-OFF CONCENTRATIONS ARE FOLLOWS: Normal [facility] Comment on above: Performed By: #### D RUGRPD #### [facility] [address] [place] [address] Dr. Celi Guerin mAMP Negative Normal NEGATIVE [facility] Comment on above: Performed By: #### D RUGRPD #### [facility] [address] [place] [address] Dr. Celi Guerin MTD Negative Normal NEGATIVE [facility] Comment on above: Performed By: #### D RUGRPD #### [facility] [address] [place] [address] Dr. Celi Guerin OPI Positive Abnormal NEGATIVE [facility] Comment on above: Performed By: #### D RUGRPD #### [facility] [address] [place] [address] Dr. Celi Guerin OXY Negative Normal NEGATIVE [facility] Comment on above: Performed By: #### D RUGRPD #### [facility] [address] [place] [address] Dr. Celi Guerin PCP Negative Normal NEGATIVE [facility] Comment on above: Performed By: #### D RUGRPD #### [facility] [address] [place] [address] Dr. Celi Guerin PPX Negative Normal NEGATIVE [facility] Comment on above: Performed By: #### D RUGRPD #### [facility] [address] [place] [address] Dr. Celi Guerin TCA Negative Normal NEGATIVE [facility] Comment on above: Performed By: #### D RUGRPD #### [facility] [address] [place] [address] Dr. Celi Guerin THC Positive Abnormal NEGATIVE [facility] Comment on above: Performed By: #### D RUGRPD #### [facility] [address] [place] [address] Dr. Celi Guerin ER URINE PROFILEon 2 Bilirubin Ql (U) Negative Normal NEGATIVE [facility] Comment on above: Performed By: #### P TT, PT #### [facility] [address] [place] [address] Dr. Celi Guerin Clarity (U) CLEAR Normal CLEAR [facility] Comment on above: Performed By: #### P TT, PT #### [facility] [address] [place] [address] Dr. Celi Guerin Color (U) YELLOW Normal YELLOW [facility] Comment on above: Performed By: #### P TT, PT #### [facility] [address] [place] [address] Dr. Celi Guerin ERUPAT A micrscopic examina tion will be performed if indicated. Normal [facility] Comment on above: Performed By: #### P TT, PT #### [facility] [address] [place] [address] Dr. Celi Guerin Glucose Ql (U) Negative Normal NEGATIVE [facility] Comment on above: Performed By: #### P TT, PT #### [facility] [address] [place] [address] Dr. Celi Guerin Hemoglobin Ql (U) MODERATE Abnormal NEGATIVE [facility] Comment on above: Performed By: #### P TT, PT #### [facility] [address] [address] [address] Celi Guerin Ketones Ql (U) 15 mg/dl Abnormal NEGATIVE [facility] Comment on above: Performed By: #### P TT, PT #### [facility] [address] [place] [address] Dr. Celi Guerin LEUKOCYTES Negative Normal NEGATIVE [facility] Comment on above: Performed By: #### P TT, PT #### [facility] [address] [place] [address] Dr. Celi Guerin Nitrite Ql (U) Negative Normal NEGATIVE [facility] Comment on above: Performed By: #### P TT, PT #### [facility] [address] [place] [address] Dr. Celi Guerin pH (U) 6.0 [pH] Normal 5-9 [facility] Comment on above: Performed By: #### P TT, PT #### [facility] [address] [place] [address] Dr. Celi Guerin Protein (U) [Mass/Vol] 30 mg/dL Abnormal NEGATIVE/ TRA CE [facility] Comment on above: Performed By: #### P TT, PT #### [facility] [address] [place] [address] Dr. Celi Guerin SPEC GRAVITY 1.025 Normal 1.005-<=1.025 [facility] Comment on above: Performed By: #### P TT, PT #### [facility] [address] [place] [address] Dr. Celi Guerin UR MICRO IND INDICATED Normal [facility] Comment on above: Performed By: #### P TT, PT #### [facility] [address] [place] [address] Dr. Celi Guerin Urobilinogen Qn (U) 0.2 {Irlanda'U}/dL Normal 0.2 - 1. 0 [facility] Comment on above: Performed By: #### P TT, PT #### [facility] [address] [place] [address] Dr. Celi Guerin LIPASEon 10-10-2021 Lipase [Catalytic activity/Vol] U/L Critically high 23.0-300.0 [facility] Comment on above: Performed By: #### D RUGRPD #### [facility] [address] [place] [address] Dr. Celi Guerin PROF 14(COMP METB)on 022 Albumin [Mass/Vol] 3.4 g/dL Normal 3.4-5.0 [facility] Comment on above: Performed By: #### D RUGRPD #### [facility] [address] [place] [address] Dr. Celi Guerin Albumin/Globulin [Mass ratio] 1.1 {ratio} Normal [facility] Comment on above: Performed By: #### D RUGRPD #### [facility] [address] [place] [address] Dr. Celi Guerin ALP [Catalytic activity/Vol] 81 U/L Normal 46-116 [facility] Comment on above: Performed By: #### D RUGRPD #### [facility] [address] [place] [address] Dr. Celi Guerin ALT [Catalytic activity/Vol] 36 U/L Normal 14-59 [facility] Comment on above: Performed By: #### D RUGRPD #### [facility] [address] [place] [address] Dr. Celi Guerin Anion gap [Moles/Vol] 13.4 mmol/L Normal [facility] Comment on above: Performed By: #### D RUGRPD #### [facility] [address] [place] [address] Dr. Celi Guerin AST [Catalytic activity/Vol] 53 U/L Critically high 15 -37 [facility] Comment on above: Performed By: #### D RUGRPD #### [facility] [address] [address] [address] Celi Guerin Bilirubin [Mass/Vol] 1.1 mg/dL Normal 0.2-1.3 [facility] Comment on above: Performed By: #### D RUGRPD #### [facility] [address] [address] [address] Celi Guerin Calcium [Mass/Vol] 7.7 mg/dL Critically low 8.5-10.1 [facility] Comment on above: Performed By: #### D RUGRPD #### [facility] [address] [address] [address] Celi Guerin Chloride [Moles/Vol] 98 mmol/L Normal 98-107 [facility] Comment on above: Performed By: #### D RUGRPD #### [facility] [address] [place] [address] Dr. Celi Guerin CO2 [Moles/Vol] 27.3 mmol/L Normal 22.0-30.0 [facility] Comment on above: Performed By: #### D RUGRPD #### [facility] [address] [place] [address] Dr. Celi Guerin Creatinine [Mass/Vol] 0.38 mg/dL Critically low 0.52-1.04 [facility] Comment on above: Performed By: #### D RUGRPD #### [facility] [address] [place] [address] Dr. Celi Guerin EGFR-AF DANISH >60 Normal >=60 [facility] Comment on above: Performed By: #### D RUGRPD #### [facility] [address] [address] [address] Celi Guerin EGFR-NON AF DANISH >60 Normal >=60 [facility] Comment on above: Performed By: #### D RUGRPD #### [facility] [address] [place] [address] Dr. Celi Guerin Globulin (S) [Mass/Vol] 3.1 g/dL Normal [facility] Comment on above: Performed By: #### D RUGRPD #### [facility] [address] [address] [address] Celi Guerin Glucose [Mass/Vol] 94 mg/dL Normal 74-106 [facility] Comment on above: Performed By: #### D RUGRPD #### [facility] [address] [address] [address] Celi Guerin Potassium [Moles/Vol] 3.7 mmol/L Normal 3.4-5.0 [facility] Comment on above: Performed By: #### D RUGRPD #### [facility] [address] [address] [address] Clei Guerin Protein [Mass/Vol] 6.5 g/dL Normal 6.1-8.2 [facility] Comment on above: Performed By: #### D RUGRPD #### [facility] [address] [address] [address] Celi Guerin Sodium [Moles/Vol] 135 mmol/L Critically low 137-145 [facility] Comment on above: Performed By: #### D RUGRPD #### [facility] [address] [address] [address] Clei Guerin Urea nitrogen [Mass/Vol] 6.0 mg/dL Critically low 7.0-18. 0 [facility] Comment on above: Performed By: #### D RUGRPD #### [facility] [address] [address] [address] Celi Guerin Urea nitrogen/Creatinine [Mass ratio] 15.8 mg/mg Normal [facility] Comment on above: Performed By: #### D RUGRPD #### [facility] [address] [address] [address] Celi Guerin URINE MICROSCOPIC ONLYon BACTERIA TRACE Abnormal NONE SEEN [facility] Comment on above: Performed By: #### P TT, PT #### [facility] [address] [address] [address] Celi Guerin Bacteria identified Cx Nom (U) NOT INDICATED Normal [facility] Comment on above: Performed By: #### P TT, PT #### [facility] [address] [place] [address] Dr. Celi Guerin CAST NONE SEEN Normal NONE SEEN [facility] Comment on above: Performed By: #### P TT, PT #### [facility] [address] [place] [address] Dr. Celi Guerin Crystals LM Nom (Urine sed) NONE SEEN Normal NONE SEE N [facility] Comment on above: Performed By: #### P TT, PT #### [facility] [address] [place] [address] Dr. Celi Guerin Epithelial cells LM Ql (Urine sed) FEW Abnormal N ONE SEEN /RARE [facility] Comment on above: Performed By: #### P TT, PT #### [facility] [address] [place] [address] Dr. Celi Guerin MUCOUS SMALL Abnormal NONE SEEN [facility] Comment on above: Performed By: #### P TT, PT #### [facility] [address] [place] [address] Dr. Celi Guerin RBC 5-10 Abnormal 0-2 [facility] Comment on above: Performed By: #### P TT, PT #### [facility] [address] [place] [address] Dr. Celi Guerin WBC 0-2 Abnormal NONE SEEN [facility] Comment on above: Performed By: #### P TT, PT #### [facility] [address] [place] [address] Dr. Celi Guerin CBC AUTO DIFFon 10-09-2021 BASO # 0.0 103/ul Normal 0.0-0.1 [facility] Comment on above: Performed By: #### ARTEMIO GOMEZ #### [facility] [address] [place] [address] Dr. Celi Guerin Basophils/100 WBC (Bld) 0.1 % Critically low 0.2-2.0 [facility] Comment on above: Performed By: #### YURI GOMEZRO #### [facility] [address] [place] [address] Dr. Celi Guerin EO # 0.0 103/ul Normal 0.0-0.7 [facility] Comment on above: Performed By: #### Sergey ESTRELLA UMICRO #### [facility] [address] [place] [address] Dr. Celi Guerin Eosinophils/100 WBC (Bld) 0.1 % Critically low 0.9-7. 0 [facility] Comment on above: Performed By: #### Sergey ESTRELLA UMICRO #### [facility] [address] [place] [address] Dr. Celi Guerin Erythrocyte distribution wid th (RBC) [Ratio] 18.5 % Critically high 11.0-15.0 [facility] Comment on above: Performed By: #### Sergey ESTRELLA UMICRO #### [facility] [address] [place] [address] Dr. Celi Guerin Hematocrit (Bld) [Volume fraction] 36.0 % Normal 3 6.0-48.0 [facility] Comment on above: Performed By: #### FLOR GOMEZICRO #### [facility] [address] [place] [address] Dr. Celi Guerin Hemoglobin (Bld) [Mass/Vol] 11.3 g/dL Critically low 12.0 -16.0 [facility] Comment on above: Performed By: #### Sergey ESTRELLA UMICRO #### [facility] [address] [place] [address] Dr. Celi Guerin IG # 0.06 10e3/ul Critically high 0.00-0.03 [facility] Comment on above: Performed By: #### Sergey ESTRELLA UMICRO #### [facility] [address] [place] [address] Dr. Celi Guerin IG % 0.8 % Critically high 0.0-0.5 [facility] Comment on above: Performed By: #### YURI GOMEZRO #### [facility] [address] [place] [address] Dr. Celi Guerin LYMPH # 1.5 103/ul Normal 1.2-3.8 [facility] Comment on above: Performed By: #### FLOR GOMEZICRO #### [facility] [address] [place] [address] Dr. Celi Guerin Lymphocytes/100 WBC (Bld) 19.3 % Critically low 20.5-6 0.0 [facility] Comment on above: Performed By: #### FLOR GOMEZICRO #### [facility] [address] [place] [address] Dr. Celi Guerin MANUAL DIFF REQ NO Normal [facility] Comment on above: Performed By: #### Sergey ESTRELLA UMICRO #### [facility] [address] [place] [address] Dr. Celi Guerin MCH (RBC) [Entitic mass] 25.7 pg Critically low 26.7-34 .0 [facility] Comment on above: Performed By: #### FLOR GOMEZICRO #### [facility] [address] [place] [address] Dr. Celi Guerin MCHC (RBC) [Mass/Vol] 31.4 g/dL Normal 29.9-35.2 [facility] Comment on above: Performed By: #### FLOR GOMEZICRO #### [facility] [address] [place] [address] Dr. Celi Guerin MCV (RBC) [Entitic vol] 81.8 fL Normal 81.0-99.0 [facility] Comment on above: Performed By: #### Sergey ESTRELLA UMICRO #### [facility] [address] [place] [address] Dr. Celi Guerin MONO # 0.6 103/ul Normal 0.3-0.8 [facility] Comment on above: Performed By: #### Sergey ESTRELLA UMICRO #### [facility] [address] [place] [address] Dr. Celi Guerin Monocytes/100 WBC (Bld) 7.9 % Normal 1.7-12.0 [facility] Comment on above: Performed By: #### YURI GOMEZRO #### [facility] [address] [place] [address] Dr. Celi Guerin NEUT # 5.6 103/ul Normal 1.4-6.5 [facility] Comment on above: Performed By: #### YURI GOMEZRO #### [facility] [address] [place] [address] Dr. Celi Guerin Neutrophils/100 WBC (Bld) 71.8 % Normal 43.0-75.0 [facility] Comment on above: Performed By: #### FLOR GOMEZICRO #### [facility] [address] [place] [address] Dr. Celi Guerin Platelet mean volume (Bld) [ Entitic vol] 10.3 fL Normal 9.5-13.5 [facility] Comment on above: Performed By: #### YURI GOMEZRO #### [facility] [address] [place] [address] Dr. Celi Guerin PLT 78 103/ul Critically low 150-[address] [facility] Comment on above: Performed By: #### YURI GOMEZRO #### [facility] [address] [place] [address] Dr. Celi Guerin RBC 4.40 106/ul Normal 4.20-5.40 [facility] Comment on above: Performed By: #### YURI GOMEZRO #### [facility] [address] [place] [address] Dr. Celi Guerin WBC 7.8 103/ul Normal 4.0-11.0 [facility] Comment on above: Performed By: #### YURI GOMEZRO #### [facility] [address] [place] [address] Dr. Celi Guerin Covid-19 PCR ([facility])on 09-26 SARS-CoV-2 (COVID-19) RNA LIBERTAD+probe Ql (Unsp spec) Not detected Normal NOT DETECTED [facility] Comment on above: Result Comment: When diagnostic testing is negative, the possibility of a false negative should be considered in the context of a patient's recent exposures and the presence of clinical signs and symptoms consistent with SARS-CoV-2. This test is not yet approved or cleared by the [place] FDA. When there are no FDA-approved or cleared tests available, and other criteria are met, FDA can make tests available under an emergency access mechanism called an Emergency Use Authorization (EUA). The EUA for this test is supported by the [place] of Health and Human Service's declaration that circumstances exist to justify the emergency use of in vitro diagnostics for the detection and/or diagnosis of the virus that causes COVID-19. This EUA will remain in effect for the duration of the COVID-19 declaration justifying emergency of IVDs, unless it is terminated or revoked by the FDA (after which the test may no longer be used). Performed By: #### P TT, PT #### [facility] [address] [place] [address] Dr. Celi Guerin ETHANOL (BLD ALC)on 10-10-19 22 ALC NOTE NOTE: 80 mg/dl is th e legal limit for a blood alcohol level Normal [facility] Comment on above: Performed By: #### P TT, PT #### [facility] [address] [place] [address] Dr. Celi Guerin Ethanol [Mass/Vol] 26 mg/dL Normal [facility] Comment on above: Performed By: #### P TT, PT #### [facility] [address] [place] [address] Dr. Celi Guerin LIPASEon 10-09-2021 Lipase [Catalytic activity/Vol] U/L Critically high 23.0-300.0 [facility] Comment on above: Performed By: #### P TT, PT #### [facility] [address] [place] [address] Dr. Celi Guerin PROF 14(COMP METB)on 022 Albumin [Mass/Vol] 4.1 g/dL Normal 3.4-5.0 [facility] Comment on above: Performed By: #### P TT, PT #### [facility] [address] [place] [address] Dr. Celi Guerin Albumin/Globulin [Mass ratio] 1.1 {ratio} Normal [facility] Comment on above: Performed By: #### P TT, PT #### [facility] [address] [place] [address] Dr. Celi Guerin ALP [Catalytic activity/Vol] 100 U/L Normal 46-116 [facility] Comment on above: Performed By: #### P TT, PT #### [facility] [address] [address] [address] Celi Guerin ALT [Catalytic activity/Vol] 44 U/L Normal 14-59 [facility] Comment on above: Performed By: #### P TT, PT #### [facility] [address] [place] [address] Dr. Celi Guerin Anion gap [Moles/Vol] 18.9 mmol/L Normal [facility] Comment on above: Performed By: #### P TT, PT #### [facility] [address] [place] [address] Dr. Celi Guerin AST [Catalytic activity/Vol] 84 U/L Critically high 15 -37 [facility] Comment on above: Performed By: #### P TT, PT #### [facility] [address] [place] [address] Dr. Celi Guerin Bilirubin [Mass/Vol] 0.6 mg/dL Normal 0.2-1.3 [facility] Comment on above: Performed By: #### P TT, PT #### [facility] [address] [place] [address] Dr. Celi Guerin Calcium [Mass/Vol] 8.8 mg/dL Normal 8.5-10.1 [facility] Comment on above: Performed By: #### P TT, PT #### [facility] [address] [place] [address] Dr. Celi Guerin Chloride [Moles/Vol] 100 mmol/L Normal 98-107 [facility] Comment on above: Performed By: #### P TT, PT #### [facility] [address] [place] [address] Dr. Celi Guerin CO2 [Moles/Vol] 20.8 mmol/L Critically low 22.0-30.0 [facility] Comment on above: Performed By: #### P TT, PT #### [facility] [address] [place] [address] Dr. Celi Guerin Creatinine [Mass/Vol] 0.56 mg/dL Normal 0.52-1.04 [facility] Comment on above: Performed By: #### P TT, PT #### [facility] [address] [address] [address] Celi Guerin EGFR-AF DANISH >60 Normal >=60 [facility] Comment on above: Performed By: #### P TT, PT #### [facility] [address] [place] [address] Dr. Celi Guerin EGFR-NON AF DANISH >60 Normal >=60 [facility] Comment on above: Performed By: #### P TT, PT #### [facility] [address] [place] [address] Dr. Celi Guerin Globulin (S) [Mass/Vol] 3.8 g/dL Normal [facility] Comment on above: Performed By: #### P TT, PT #### [facility] [address] [place] [address] Dr. Celi Guerin Glucose [Mass/Vol] 130 mg/dL Critically high 74-106 [facility] Comment on above: Performed By: #### P TT, PT #### [facility] [address] [place] [address] Dr. Celi Guerin Potassium [Moles/Vol] 3.7 mmol/L Normal 3.4-5.0 [facility] Comment on above: Performed By: #### P TT, PT #### [facility] [address] [place] [address] Dr. Celi Guerin Protein [Mass/Vol] 7.9 g/dL Normal 6.1-8.2 [facility] Comment on above: Performed By: #### P TT, PT #### [facility] [address] [place] [address] Dr. Celi Guerin Sodium [Moles/Vol] 136 mmol/L Critically low 137-145 [facility] Comment on above: Performed By: #### P TT, PT #### [facility] [address] [place] [address] Dr. Celi Guerin Urea nitrogen [Mass/Vol] 9.0 mg/dL Normal 7.0-18.0 [facility] Comment on above: Performed By: #### P TT, PT #### [facility] [address] [place] [address] Dr. Celi Guerin Urea nitrogen/Creatinine [Mass ratio] 16.1 mg/mg Normal [facility] Comment on above: Performed By: #### P TT, PT #### [facility] [address] [place] [address] Dr. Celi Guerin CULTURE URINEon 09-02-2021 CULTURE URINE Isolate 1 Escherichia coli >100,000 cfu/mL of ORGANISM 1 Escherichia coli ANTIBIOTIC M.I.C RX STATUS Ampicillin <=2 S F Ampicillin/Sulbactam <=2 S F Piperacillin/Tazobactam <=4 S F Cefazolin <=4 S F Ceftazidime <=1 S F Ceftriaxone <=1 S F Ertapenem <=0.5 S F Imipenem <=0.25 S F Amikacin <=2 S F Gentamicin <=1 S F Tobramycin <=1 S F Ciprofloxacin <=0.25 S F Levofloxacin <=0.12 S F Nitrofurantoin <=16 S F Trimethoprim/Sulfamethoxazole <=20 S F Normal [facility] Comment on above: Performed By: #### P TT, PT #### [facility] [address] [place] [address] Dr. Celi Guerin AMYLASEon 08-30-2021 Amylase [Catalytic activity/Vol] 538 U/L Critically hig h 31-110 [facility] Comment on above: Result Comment: TEST REPEATED CRITICAL VALUE VERIFIED Performed By: #### P TT, PT #### [facility] [address] [place] [address] Dr. Celi Guerin CBC AUTO DIFFon 08-30-2021 BASO # 0.0 103/ul Normal 0.0-0.1 [facility] Comment on above: Performed By: #### YURI GOMEZRO #### [facility] [address] [place] [address] Dr. eCli Guerin Basophils/100 WBC (Bld) 0.2 % Normal 0.2-2.0 [facility] Comment on above: Performed By: #### FLOR GOMEZICRO #### [facility] [address] [place] [address] Dr. Celi Guerin EO # 0.0 103/ul Normal 0.0-0.7 [facility] Comment on above: Performed By: #### FLOR GOMEZICRO #### [facility] [address] [place] [address] Dr. Celi Guerin Eosinophils/100 WBC (Bld) 0.2 % Critically low 0.9-7. 0 [facility] Comment on above: Performed By: #### FLOR GOMEZICRO #### [facility] [address] [place] [address] Dr. Celi Guerin Erythrocyte distribution wid th (RBC) [Ratio] 17.0 % Critically high 11.0-15.0 [facility] Comment on above: Performed By: #### Sergey ESTRELLA UMICRO #### [facility] [address] [place] [address] Dr. Celi Guerin Hematocrit (Bld) [Volume fraction] 34.2 % Critically low 36.0-48.0 [facility] Comment on above: Performed By: #### eSrgey ESTRELLA UMICRO #### [facility] [address] [place] [address] Dr. Celi Guerin Hemoglobin (Bld) [Mass/Vol] 10.6 g/dL Critically low 12.0 -16.0 [facility] Comment on above: Performed By: #### Sergey ESTRELLA UMICRO #### [facility] [address] [place] [address] Dr. Celi Guerin IG # 0.03 10e3/ul Normal 0.00-0.03 [facility] Comment on above: Performed By: #### Sergey ESTRELLA UMICRO #### [facility] [address] [place] [address] Dr. Celi Guerin IG % 0.5 % Normal 0.0-0.5 [facility] Comment on above: Performed By: #### Sergey ESTRELLA UMICRO #### [facility] [address] [place] [address] Dr. Celi Guerin LYMPH # 0.8 103/ul Critically low 1.2-3.8 [facility] Comment on above: Performed By: #### E SAMEER UMICRO #### [facility] [address] [place] [address] Dr. Celi Guerin Lymphocytes/100 WBC (Bld) 14.4 % Critically low 20.5-6 0.0 [facility] Comment on above: Performed By: #### Sergey ESTRELLA UMICRO #### [facility] [address] [place] [address] Dr. Celi Guerin MANUAL DIFF REQ NO Normal [facility] Comment on above: Performed By: #### Sergey ESTRELLA UMICRO #### [facility] [address] [place] [address] Dr. Celi Guerin MCH (RBC) [Entitic mass] 26.9 pg Normal 26.7-34.0 [facility] Comment on above: Performed By: #### Sergey ESTRELLA UMICRO #### [facility] [address] [place] [address] Dr. Celi Guerin MCHC (RBC) [Mass/Vol] 31.0 g/dL Normal 29.9-35.2 [facility] Comment on above: Performed By: #### Sergey ESTRELLA UMICRO #### [facility] [address] [place] [address] Dr. Celi Guerin MCV (RBC) [Entitic vol] 86.8 fL Normal 81.0-99.0 [facility] Comment on above: Performed By: #### Sergey ESTRELLA UMICRO #### [facility] [address] [place] [address] Dr. Celi Gurein MONO # 0.3 103/ul Normal 0.3-0.8 [facility] Comment on above: Performed By: #### FLOR GOMEZICRO #### [facility] [address] [place] [address] Dr. Celi Guerin Monocytes/100 WBC (Bld) 4.9 % Normal 1.7-12.0 [facility] Comment on above: Performed By: #### Sergey ESTRELLA UMICRO #### [facility] [address] [place] [address] Dr. Celi Guerin NEUT # 4.6 103/ul Normal 1.4-6.5 [facility] Comment on above: Performed By: #### Sergey ESTRELLA UMICRO #### [facility] [address] [place] [address] Dr. Celi Guerin Neutrophils/100 WBC (Bld) 79.8 % Critically high 43.0- 75.0 [facility] Comment on above: Performed By: #### Sergey ESTRELLA UMICRO #### [facility] [address] [place] [address] Dr. Celi Guerin Platelet mean volume (Bld) [ Entitic vol] 11.7 fL Normal 9.5-13.5 [facility] Comment on above: Performed By: #### Sergey ESTRELLA UMICRO #### [facility] [address] [place] [address] Dr. Celi Guerin PLT 68 103/ul Critically low 150-[address] [facility] Comment on above: Performed By: #### Sergey ESTRELLA UMICRO #### [facility] [address] [place] [address] Dr. Celi Guerin RBC 3.94 106/ul Critically low 4.20-5.40 [facility] Comment on above: Performed By: #### Sergey ESTRELLA, UMICRO #### [facility] [address] [place] [address] Dr. Celi Guerin WBC 5.8 103/ul Normal 4.0-11.0 [facility] Comment on above: Performed By: #### E ARTEMIO ESTRELLA #### [facility] [address] [address] [address] ABD/PELVIS WO CONon 08-30 CT ABD/PELVIS WO CON STUDY: CT abdomen p lo noncontrast TECHNIQUE: Axial slices were obtained from the diaphragmatic domes through the pelvis without intravenous contrast. Coronal and sagittal reformats were provided. Dose reduction techniques were achieved by using automated exposure control and/or adjustment of mA and/or kV according to patient size and/or use of iterative reconstruction technique. COMPARISON: CT abdomen pelvis 07/04/2021, 08/12/2020, 11/29/2018 HISTORY: UNSPECIFIED ABDOMINAL PAIN FINDINGS: Chest: The imaged lung bases are clear. No pleural or pericardial effusion. Liver: There is hepatic steatosis. Hepatomegaly measuring up to 20.1 cm. No hepatic mass is identified. Biliary: The gallbladder and common bile duct are unremarkable. Adrenals: Normal. Pancreas: There is extensive peripancreatic fat stranding. As compared to prior imaging. This process only involve the pancreatic head, neck and uncinate, this process appears to involve the body and extending to the tail. No hypodense regions of pancreatic parenchyma to suggest necrosis. No ductal dilatation. Spleen: Normal size. Renal: No hydronephrosis. No renal calcifications. The ureters are normal in course and caliber. The urinary bladder is unremarkable. Hollow viscera: Normal caliber. Scattered colonic diverticula without focal inflammatory changes. The appendix is normal. Mildly prominent loops of proximal jejunum are favored to represent ileus. Vascular: Few scattered foci of atheromatous vascular disease. No aneurysmal dilatation. The splenic vein is not well evaluated on this noncontrasted CT. Mesentery/retroperitoneum: No free air in the abdomen. Marked fat stranding and wispy regions of free fluid surrounds the pancreas. Prominent portacaval lymph nodes are not well distinguished from peripancreatic stranding but likely related. Pelvic viscera: 2.7 cm left ovarian cyst is within normal limits for patient's age. MSK: No acute or aggressive osseous abnormalities. Cystic-appearing right retroareolar lesion on the left measures at least 25 mm. IMPRESSION: 1. Acute pancreatitis. As compared to prior exams in which this process only involves the head, uncinate and neck, today's exam also involves the body and extends in to the tail. No pancreatic parenchymal hypodensity to suggest necrosis, however a contrasted exam would offer improved evaluation. There are wispy regions of peripancreatic fat stranding without distinct fluid collection. 2. Hepatic steatosis and hepatomegaly. 3. 25 mm left retroareolar cystic-appearing lesion. Recommend diagnostic mammogram/ultrasound for further evaluation. Electronically authenticated by: BOONE LEA Date: 2021-08-30 18:43 Normal [facility] URINE PROFILEon 2 Bilirubin Ql (U) SMALL Abnormal NEGATIVE [facility] Comment on above: Performed By: #### E RUR, UMICRO #### [facility] [address] [place] [address] Dr. Celi Guerin Clarity (U) CLEAR Normal CLEAR [facility] Comment on above: Performed By: #### E RUR, UMICRO #### [facility] [address] [place] [address] Dr. Celi Guerin Color (U) YELLOW Normal YELLOW [facility] Comment on above: Performed By: #### E RUR, UMICRO #### [facility] [address] [place] [address] Dr. Celi Guerin ERUJORDIND A micrscopic examina tion will be performed if indicated. Normal [facility] Comment on above: Performed By: #### E RUR, UMICRO #### [facility] [address] [place] [address] Dr. Celi Guerin Glucose Ql (U) Negative Normal NEGATIVE [facility] Comment on above: Performed By: #### E RUR, UMICRO #### [facility] [address] [place] [address] Dr. Celi Guerin Hemoglobin Ql (U) Negative Normal NEGATIVE [facility] Comment on above: Performed By: #### E RUR, UMICRO #### [facility] [address] [place] [address] Dr. Celi Guerin Ketones Ql (U) >=[address] [facility] Comment on above: Performed By: #### E RUR, UMICRO #### [facility] [address] [place] [address] Dr. Celi Guerin LEUKOCYTES MODERATE Abnormal NEGATIVE [facility] Comment on above: Performed By: #### YURI GOMEZRO #### [facility] [address] [place] [address] Dr. Celi Guerin Nitrite Ql (U) Positive Abnormal NEGATIVE [facility] Comment on above: Performed By: #### YURI GOMEZRO #### [facility] [address] [place] [address] Dr. Celi Guerin pH (U) 6.5 [pH] Normal 5-9 [facility] Comment on above: Performed By: #### YURI GOMEZRO #### [facility] [address] [place] [address] Dr. Celi Guerin Protein (U) [Mass/Vol] 100 mg/dL Abnormal NEGATIVE/ TRA CE [facility] Comment on above: Performed By: #### YURI GOMEZRO #### [facility] [address] [place] [address] Dr. Celi Guerin SPEC GRAVITY 1.020 Normal 1.005-<=1.025 [facility] Comment on above: Performed By: #### YURI GOMEZRO #### [facility] [address] [place] [address] Dr. Celi Guerin UR MICRO IND INDICATED Normal [facility] Comment on above: Performed By: #### YURI GOMEZRO #### [facility] [address] [place] [address] Dr. Celi Guerin Urobilinogen Qn (U) 2.0 {Irlanda'U}/dL Abnormal 0.2 - 1. 0 [facility] Comment on above: Performed By: #### Sergey ESTRELLA UMICRO #### [facility] [address] [place] [address] Dr. Celi Guerin ETHANOL (BLD ALC)on 08-31-19 ALC NOTE NOTE: 80 mg/dl is th e legal limit for a blood alcohol level Normal [facility] Comment on above: Performed By: #### E TH #### [facility] [address] [place] [address] Dr. Celi Guerin Ethanol [Mass/Vol] mg/dL Normal [facility] Comment on above: Performed By: #### E TH #### [facility] [address] [place] [address] Dr. Celi Guerin LIPASEon 08-30-2021 Lipase [Catalytic activity/Vol] U/L Critically high 23.0-300.0 [facility] Comment on above: Result Comment: TEST REPEATED CRITICAL VALUE VERIFIED Performed By: #### P TT, PT #### [facility] [address] [place] [address] Dr. Celi Guerin PROF 14(COMP METB)on 022 Albumin [Mass/Vol] 3.9 g/dL Normal 3.5-5.0 [facility] Comment on above: Performed By: #### P TT, PT #### [facility] [address] [place] [address] Dr. Celi Guerin Albumin/Globulin [Mass ratio] 1.1 {ratio} Normal [facility] Comment on above: Performed By: #### P TT, PT #### [facility] [address] [place] [address] Dr. Celi Guerin ALP [Catalytic activity/Vol] 91 U/L Normal 38-126 [facility] Comment on above: Performed By: #### P TT, PT #### [facility] [address] [place] [address] Dr. Celi Guerin ALT [Catalytic activity/Vol] 52 U/L Normal 9-52 [facility] Comment on above: Performed By: #### P TT, PT #### [facility] [address] [place] [address] Dr. Celi Guerin Anion gap [Moles/Vol] 16.7 mmol/L Normal [facility] Comment on above: Performed By: #### P TT, PT #### [facility] [address] [place] [address] Dr. Celi Guerin AST [Catalytic activity/Vol] 59 U/L Critically high 14 -36 [facility] Comment on above: Performed By: #### P TT, PT #### [facility] [address] [place] [address] Dr. Celi Guerin Bilirubin [Mass/Vol] 1.0 mg/dL Normal 0.2-1.3 [facility] Comment on above: Performed By: #### P TT, PT #### [facility] [address] [place] [address] Dr. Celi Guerin Calcium [Mass/Vol] 9.0 mg/dL Normal 8.4-10.2 [facility] Comment on above: Performed By: #### P TT, PT #### [facility] [address] [place] [address] Dr. Celi Guerin Chloride [Moles/Vol] 95 mmol/L Critically low 98-107 [facility] Comment on above: Performed By: #### P TT, PT #### [facility] [address] [place] [address] Dr. Celi Guerin CO2 [Moles/Vol] 22.8 mmol/L Normal 22.0-30.0 [facility] Comment on above: Performed By: #### P TT, PT #### [facility] [address] [place] [address] Dr. Celi Guerin Creatinine [Mass/Vol] 0.57 mg/dL Normal 0.52-1.04 [facility] Comment on above: Performed By: #### P TT, PT #### [facility] [address] [place] [address] Dr. Celi Guerin EGFR-AF DANISH >60 Normal >=60 [facility] Comment on above: Performed By: #### P TT, PT #### [facility] [address] [place] [address] Dr. Celi Guerin EGFR-NON AF DANISH >60 Normal >=60 [facility] Comment on above: Performed By: #### P TT, PT #### [facility] [address] [place] [address] Dr. Celi Guerin Globulin (S) [Mass/Vol] 3.5 g/dL Normal T [facility] Comment on above: Performed By: #### P TT, PT #### [facility] [address] [place] [address] Dr. Celi Guerin Glucose [Mass/Vol] 82 mg/dL Normal 74-106 [facility] Comment on above: Performed By: #### P TT, PT #### [facility] [address] [place] [address] Dr. Celi Guerin Potassium [Moles/Vol] 3.5 mmol/L Normal 3.4-5.0 [facility] Comment on above: Performed By: #### P TT, PT #### [facility] [address] [place] [address] Dr. Celi Guerin Protein [Mass/Vol] 7.4 g/dL Normal 6.1-8.2 [facility] Comment on above: Performed By: #### P TT, PT #### [facility] [address] [place] [address] Dr. Celi Guerin Sodium [Moles/Vol] 131 mmol/L Critically low 137-145 [facility] Comment on above: Performed By: #### P TT, PT #### [facility] [address] [place] [address] Dr. Celi Guerin Urea nitrogen [Mass/Vol] 8.0 mg/dL Normal 7.0-17.0 [facility] Comment on above: Performed By: #### P TT, PT #### [facility] [address] [place] [address] Dr. Celi Guerin Urea nitrogen/Creatinine [Mass ratio] 14.0 mg/mg Normal [facility] Comment on above: Performed By: #### P TT, PT #### [facility] [address] [place] [address] Dr. Celi Guerin URINE MICROSCOPIC ONLYon BACTERIA MODERATE Abnormal NONE SEEN [facility] Comment on above: Performed By: #### E LUCEROR UMRADHARO #### [facility] [address] [place] [address] Dr. Celi Guerin Bacteria identified Cx Nom (U) INDICATED Normal [facility] Comment on above: Performed By: #### E RUR, UMICRO #### [facility] [address] [place] [address] Dr. Celi Guerin CAST SEEN Abnormal NONE SEEN [facility] Comment on above: Performed By: #### E RUR, UMICRO #### [facility] [address] [place] [address] Dr. Celi Guerin Crystals LM Nom (Urine sed) NONE SEEN Normal NONE SEE N [facility] Comment on above: Performed By: #### E RUR, UMICRO #### [facility] [address] [place] [address] Dr. Celi Guerin Epithelial cells LM Ql (Urine sed) FEW Abnormal N ONE SEEN /RARE [facility] Comment on above: Performed By: #### E RUR, UMICRO #### [facility] [address] [place] [address] Dr. Celi Guerin HYALINE CAST RARE Normal [facility] Comment on above: Performed By: #### E RUR, UMICRO #### [facility] [address] [place] [address] Dr. Celi Guerin MUCOUS NONE SEEN Normal NONE SEEN [facility] Comment on above: Performed By: #### E RUR, UMICRO #### [facility] [address] [place] [address] Dr. Celi Guerin RBC 0-2 Normal 0-2 [facility] Comment on above: Performed By: #### E RUR, UMICRO #### [facility] [address] [place] [address] Dr. Celi Guerin WBC 10-20 Abnormal NONE SEEN [facility] Comment on above: Performed By: #### E RUR, UMICRO #### [facility] [address] [place] [address] Dr. Celi Guerin AMYLASEon 07-04-2021 Amylase [Catalytic activity/Vol] 113 U/L Critically hig h 31-110 [facility] Comment on above: Performed By: #### E LUCEROARTEMIO Hendrix #### [facility] [address] [place] [address] Dr. Celi Guerin CBC AUTO DIFFon 07-04-2021 BASO # 0.0 103/ul Normal 0.0-0.1 [facility] Comment on above: Performed By: #### C BC #### [facility] [address] [place] [address] Dr. Celi Guerin Basophils/100 WBC (Bld) 0.3 % Normal 0.2-2.0 [facility] Comment on above: Performed By: #### C BC #### [facility] [address] [place] [address] Dr. Celi Guerin EO # 0.0 103/ul Normal 0.0-0.7 [facility] Comment on above: Performed By: #### C BC #### [facility] [address] [place] [address] Dr. Celi Guerin Eosinophils/100 WBC (Bld) 0.0 % Critically low 0.9-7. 0 [facility] Comment on above: Performed By: #### C BC #### [facility] [address] [place] [address] Dr. Celi Guerin Erythrocyte distribution wid th (RBC) [Ratio] 20.1 % Critically high 11.0-15.0 [facility] Comment on above: Performed By: #### C BC #### [facility] [address] [place] [address] Dr. Celi Guerin Hematocrit (Bld) [Volume fraction] 36.8 % Normal 3 6.0-48.0 [facility] Comment on above: Performed By: #### C BC #### [facility] [address] [place] [address] Dr. eCli Guerin Hemoglobin (Bld) [Mass/Vol] 12.3 g/dL Normal 12.0-16. 0 [facility] Comment on above: Performed By: #### C BC #### [facility] [address] [place] [address] Dr. Celi Guerin IG # 0.04 10e3/ul Critically high 0.00-0.03 [facility] [place] [facility] Comment on above: Performed By: #### C BC #### [facility] [address] [place] [address] Dr. Celi Guerin IG % 0.6 % Critically high 0.0-0.5 [facility] Comment on above: Performed By: #### C BC #### [facility] [address] [place] [address] Dr. Celi Guerin LYMPH # 0.9 103/ul Critically low 1.2-3.8 [facility] Comment on above: Performed By: #### C BC #### [facility] [address] [place] [address] Dr. Celi Guerin Lymphocytes/100 WBC (Bld) 12.7 % Critically low 20.5-6 0.0 [facility] Comment on above: Performed By: #### C BC #### [facility] [address] [place] [address] Dr. Celi Guerin MANUAL DIFF REQ NO Normal [facility] Comment on above: Performed By: #### C BC #### [facility] [address] [place] [address] Dr. Celi Guerin MCH (RBC) [Entitic mass] 29.5 pg Normal 26.7-34.0 [facility] Comment on above: Performed By: #### C BC #### [facility] [address] [place] [address] Dr. Celi Guerin MCHC (RBC) [Mass/Vol] 33.4 g/dL Normal 29.9-35.2 [facility] Comment on above: Performed By: #### C BC #### [facility] [address] [place] [address] Dr. Celi Guerin MCV (RBC) [Entitic vol] 88.2 fL Normal 81.0-99.0 [facility] Comment on above: Performed By: #### C BC #### [facility] [address] [place] [address] Dr. Celi Guerin MONO # 0.5 103/ul Normal 0.3-0.8 [facility] Comment on above: Performed By: #### C BC #### [facility] [address] [place] [address] Dr. Celi Guerin Monocytes/100 WBC (Bld) 6.9 % Normal 1.7-12.0 [facility] Comment on above: Performed By: #### C BC #### [facility] [address] [place] [address] Dr. Celi Guerin NEUT # 5.5 103/ul Normal 1.4-6.5 [facility] Comment on above: Performed By: #### C BC #### [facility] [address] [place] [address] Dr. Celi Guerin Neutrophils/100 WBC (Bld) 79.5 % Critically high 43.0- 75.0 [facility] [place] [facility] Comment on above: Performed By: #### C BC #### [facility] [address] [place] [address] Dr. Celi Guerin Platelet mean volume (Bld) [ Entitic vol] 10.0 fL Normal 9.5-13.5 [facility] Comment on above: Performed By: #### C BC #### [facility] [address] [place] [address] Dr. Celi Guerin PLT 95 103/ul Critically low 150-[address] [facility] Comment on above: Performed By: #### C BC #### [facility] [address] [place] [address] Dr. Celi Guerin RBC 4.17 106/ul Critically low 4.20-5.40 [facility] Comment on above: Performed By: #### C BC #### [facility] [address] [place] [address] Dr. Celi Guerin WBC 7.0 103/ul Normal 4.0-11.0 [facility] Comment on above: Performed By: #### C BC #### [facility] [address] [place] [address] ABD/PELV W RUDOLPHon 07-04-19 CT ABD/PELV W CON EXAMINATION: CT ABD/ PELV W CON HISTORY: NAUSEA WITH VOMITING, UNSPECIFIED , bilateral upper abdominal pain COMPARISON: CT abdomen pelvis 08/12/2020 TECHNIQUE: Axial, Coronal, and Sagittal images were created with IV contrast. Dose reduction techniques were achieved by using automated exposure control and/or adjustment of mA and/or kV according to patient size and/or use of iterative reconstruction technique. FINDINGS: LUNG BASES: No visible pulmonary or pleural disease. LIVER: Low density throughout consistent with fatty infiltration. BILIARY: No dilatation or calcification. PANCREAS: Enlarged edematous appearance of the head and poorly defined margins. No abnormal duct dilation. Trace amount of free fluid between pancreas and liver SPLEEN: No enlargement or focal lesion. ADRENALS: No mass or enlargement. KIDNEYS: No mass, obstruction, or calcification. BOWEL/MESENTERY: Mild sequential wall thickening of the descending, sigmoid colon, and rectum. No obstruction or mass. Diverticular disease without appreciable acute inflammatory changes. Normal appendix. AORTA/VASCULAR: No aneurysm or dissection. RETROPERITONEUM: No mass or adenopathy. LYMPH NODES: No adenopathy. URINARY BLADDER: No visible focal wall thickening, lesion, or calculus. PELVIC ORGANS: No visible mass. Pelvic organs appropriate for patient age. ABDOMINAL WALL: No mass or hernia. BONES: No bony lesion or fracture. OTHER: Negative. IMPRESSION: 1. Suspect mild acute pancreatitis. 2. Wall thickening of the distal colon which may be exaggerated due to lack of distention, but findings may represent mild colitis. Electronically authenticated by: OSMIN MCGEE Date: 2021-07-04 16:56 Normal [facility] ETHANOL (BLD ALC)on 07-04-19 ALC NOTE NOTE: 80 mg/dl is th e legal limit for a blood alcohol level Normal [facility] Comment on above: Performed By: #### ARTEMIO GOMEZ #### [facility] [address] [place], [place] [address] Dr. Celi Guerin Ethanol [Mass/Vol] 35 mg/dL Normal [facility] Comment on above: Performed By: #### E ARTEMIO ESTRELLA #### [facility] [address] [place], [place] [address] Dr. Celi Guerin LIPASEon 07-04-2021 Lipase [Catalytic activity/Vol] 830.0 U/L Critically high 23.0-300.0 [facility] Comment on above: Performed By: #### YURI GOMEZRO #### [facility] [address] [place] [address] Dr. Celi Guerin PREG HCG QUALon 07-04-2021 , QUAL Negative Normal NEGATIVE [facility] Comment on above: Performed By: #### P REG #### [facility] [address] [place] [address] Dr. Celi Guerin PROF 14(COMP METB)on 022 Albumin [Mass/Vol] 3.2 g/dL Critically low 3.5-5.0 [facility] Comment on above: Performed By: #### YURI GOMEZRO #### [facility] [address] [place] [address] Dr. Celi Guerin Albumin/Globulin [Mass ratio] 0.7 {ratio} Normal [facility] Comment on above: Performed By: #### Sergey ESTRELLA UMICRO #### [facility] [address] [place] [address] Dr. Celi Guerin ALP [Catalytic activity/Vol] 126 U/L Normal 38-126 [facility] Comment on above: Performed By: #### FLOR GOMEZICRO #### [facility] [address] [place] [address] Dr. Celi Guerin ALT [Catalytic activity/Vol] 60 U/L Critically high 9- 52 [facility] Comment on above: Performed By: #### Sergey ESTRELLA UMICRO #### [facility] [address] [place] [address] Dr. Celi Guerin Anion gap [Moles/Vol] 17.7 mmol/L Normal [facility] Comment on above: Performed By: #### Sergey ESTRELLA UMICRO #### [facility] [address] [place] [address] Dr. Ceil Guerin AST [Catalytic activity/Vol] 112 U/L Critically high 14 -36 [facility] Comment on above: Performed By: #### E SAMEER UMICRO #### [facility] [address] [place] [address] Dr. Celi Guerin Bilirubin [Mass/Vol] 0.7 mg/dL Normal 0.2-1.3 [facility] Comment on above: Performed By: #### E SAMEER UMICRO #### [facility] [address] [place] [address] Dr. Celi Guerin Calcium [Mass/Vol] 8.5 mg/dL Normal 8.4-10.2 [facility] Comment on above: Performed By: #### E SAMEER UMICRO #### [facility] [address] [place] [address] Dr. Celi Guerin Chloride [Moles/Vol] 98 mmol/L Normal 98-107 [facility] Comment on above: Performed By: #### E SAMEER UMICRO #### [facility] [address] [place] [address] Dr. Celi Guerin CO2 [Moles/Vol] 23.5 mmol/L Normal 22.0-30.0 [facility] Comment on above: Performed By: #### Sregey ESTRELLA UMICRO #### [facility] [address] [place] [address] Dr. Celi Guerin Creatinine [Mass/Vol] 0.57 mg/dL Normal 0.52-1.04 [facility] Comment on above: Performed By: #### Sergey ESTRELLA UMICRO #### [facility] [address] [place] [address] Dr. Celi Guerin EGFR-AF DANISH >60 Normal >=60 [facility] Comment on above: Performed By: #### E SAMEER UMICRO #### [facility] [address] [place] [address] Dr. Celi Guerin EGFR-NON AF DANISH >60 Normal >=60 [facility] Comment on above: Performed By: #### E RURuma UMICRO #### [facility] [address] [place] [address] Dr. Celi Guerin Globulin (S) [Mass/Vol] 4.3 g/dL Normal [facility] Comment on above: Performed By: #### ARTEMIO GOMEZ #### [facility] [address] [place] [address] Dr. Celi Guerin Glucose [Mass/Vol] 104 mg/dL Normal 74-106 [facility] Comment on above: Performed By: #### YURI GOMEZRO #### [facility] [address] [place] [address] Dr. Celi Guerin Potassium [Moles/Vol] 3.2 mmol/L Critically low 3.4-5.0 [facility] Comment on above: Performed By: #### YURI GOMEZRO #### [facility] [address] [place] [address] Dr. Celi Guerin Protein [Mass/Vol] 7.5 g/dL Normal 6.1-8.2 [facility] Comment on above: Performed By: #### YURI GOMEZRO #### [facility] [address] [place] [address] Dr. Celi Guerin Sodium [Moles/Vol] 136 mmol/L Critically low 137-145 [facility] Comment on above: Performed By: #### ARTEMIO GOMEZ #### [facility] [address] [place] [address] Dr. Celi Guerin Urea nitrogen [Mass/Vol] 5.0 mg/dL Critically low 7.0-17. 0 [facility] Comment on above: Performed By: #### YURI GOMEZRO #### [facility] [address] [place] [address] Dr. Celi Guerin Urea nitrogen/Creatinine [Mass ratio] 8.8 mg/mg Normal [facility] Comment on above: Performed By: #### YURI GOMEZRO #### [facility] [address] [place] [address] Dr. Celi Guerin PROTIMEon 07-04-2021 INR Coag (PPP) [Relative time] 1.03 {INR} Normal [facility] Comment on above: Performed By: #### P TT, PT #### [facility] [address] [address] [address] Celi Guerin INR GUIDELINES SEE BELOW Normal [facility] Comment on above: Result Comment: KIRILL RED INR: 2.0 - 3.0 CONDITIONS NOT LISTED BELOW 2.5 - 3.5 FOR PROSTHETIC HEART VALVE REPLACEMENT 2.5 - 3.5 RECURRENT THROMBOSIS Performed By: #### P TT, PT #### [facility] [address] [place] [address] Dr. Celi Guerin PT Coag (PPP) [Time] 11.1 s Normal 9.0-11.6 [facility] Comment on above: Performed By: #### P TT, PT #### [facility] [address] [place] [address] Dr. Celi Guerin PTTon 07-04-2021 aPTT Coag (Bld) [Time] 27.6 s Normal 22.3-36.2 [facility] Comment on above: Performed By: #### P TT, PT #### [facility] [address] [place] [address] Dr. Celi Guerin Covid-19 PCR ([facility])on SARS-CoV-2 (COVID-19) RNA LIBERTAD+probe Ql (Unsp spec) Not detected Normal NOT DETECTED [facility] Comment on above: Result Comment: When diagnostic testing is negative, the possibility of a false negative should be considered in the context of a patient's recent exposures and the presence of clinical signs and symptoms consistent with SARS-CoV-2. This test is not yet approved or cleared by the [place] FDA. When there are no FDA-approved or cleared tests available, and other criteria are met, FDA can make tests available under an emergency access mechanism called an Emergency Use Authorization (EUA). The EUA for this test is supported by the [place] of Health and Human Service's declaration that circumstances exist to justify the emergency use of in vitro diagnostics for the detection and/or diagnosis of the virus that causes COVID-19. This EUA will remain in effect for the duration of the COVID-19 declaration justifying emergency of IVDs, unless it is terminated or revoked by the FDA (after which the test may no longer be used). Performed By: #### E ARTEMIO ESTRELLA #### [facility] [address] [address] [address] Celi Guerin COVID-19/INFLUENZA A,B [facility] 05-21-2020 COVID-19/INFLUENZA A,B MOLECULAR SARS-COV-2 (YUNG): Detected INFLUENZA A (YUNG): Not Detected INFLUENZA B (YUNG): Not Detected Normal Not Detected [facility] Comment on above: Order Comment: This test was performed under the FDA's Emergency Use Authorization (EUA). Testing was performed using the Eleni feliciano SARS-CoV-2 AND Influenza A/B Nucleic Acid Test on the feliciano Yung System. This test has not been approved for use in asymptomatic patients and its performance in this patient population has not been evaluated. Negative results do not rule out the presence of SARS-CoV-2, influenza A, and/or influenza B. Fact sheets for the EUA can be found at the following links: For Healthcare Providers: https://www.fda.gov/media/053435/download For Patients: https://www.fda.gov/media/658851/download Performed By: #### L [id number] #### [facility] [address] [address] Faye Enriquez M.D. [id number] COVID-19/Influenza A,B [facility] 05-21-2020 Influenza A Not Detected Not Detected [facility]ed [facility] Interpretation and review of [facility] results Abnormal [facility] SARS-CoV-2 Detected Abnormal Not Detected [facility] This test was perfor med under the FDA's Emergency Use Authorization (EUA). Testing was performed using the Eleni feliciano SARS-CoV-2 & Influenza A/B Nucleic Acid Test on the feliciano Yung System. This test has not been approved for use in asymptomatic patients and its performance in this patient population has not been evaluated. Negative results do not rule out the presence of SARS-CoV-2, influenza A, and/or influenza B. Fact sheets for the EUA can be found at the following links: For Healthcare Providers: https://www.fda.gov/media /358496/download For Patients: https://www.fda.gov/media /994442/download [facility] INCISION AND DRAINAGEon 09-26 Maria Elena West CNP 2:39 PM Incision/Drainage Date/Time: 10/07/2019 1:55 PM Performed by: Maria Elena West CNP Authorized by: Gwendolyn Tee MD Verbal consent: obtained Consent given by: patient Relevant documents: Relevent documents present and verified. Medical history, medications, allergies and physical assessment reviewed/completed Patient identity confirmed: verified patient name and Type: abscess Body area: trunk Location details: left breast Anesthesia: local infiltration Anesthesia: Local Anesthetic: lidocaine 1% without epinephrine Anesthetic total: 8 mL Skin preparation: Betadine Scalpel size: 11 Incision depth: dermal Complexity: simple Drainage: purulent Drainage amount: copious Wound treatment: wound left open Packing material: 07/01 in iodoform gauze Patient tolerance: Patient tolerated the procedure well with no immediate complications [facility] Alcohol, Medicalon 0 Ethanol [Mass/Vol] 342.00 mg/dL High <10.00 [facility] Interpretation and review of laboratory results Abnormal [facility] BMPon 08-29-2019 Anion gap [Moles/Vol] 11 mmol/L 10 - 20 mmol/L [facility] Calcium [Mass/Vol] 9.0 mg/dL 8.4 - 10.2 mg/dL [facility] Chloride [Moles/Vol] 111 mmol/L High 98 - 108 mmol/L [facility] Creatinine [Mass/Vol] 0.65 mg/dL 0.40 - 1.10 [facility] GFR/1.73 sq M predicted among non-blacks MDRD (S/P/Bld) [Vol rate/Area] The eGFR should be used for monitoring renal function only and not for medication dosing. [facility] GFR/1.73 sq M.predicted CKD-EPI (S/P/Bld) [Vol rate/Area] 118 >=60 mL/min/1.73 m2 [facility] Glucose [Mass/Vol] 86 mg/dL 65 - 99 mg/dL [facility] [Moles/Vol] 24 mmol/L 21 - 32 mmol/L [facility] Interpretation and review of laboratory results Abnormal [facility] Potassium [Moles/Vol] 4.1 mmol/L 3.5 - 5.1 mmol /L [facility] Sodium [Moles/Vol] 142 mmol/L 135 - 145 mmol/L [facility] Urea nitrogen [Mass/Vol] 9 mg/dL 8 - 25 mg/d L [facility] Urea nitrogen/Creatinine [Mass ratio] 13.8 mg/mg [facility] CBC WITH AUTO DIFFERENTIALon 08-29-2019 Basophils (Bld) [#/Vol] 0.05 10*3/uL [facility] Basophils/100 WBC (Bld) 0.4 % [facility] Eosinophils (Bld) [#/Vol] 0.08 10*3/uL [facility] Eosinophils/100 WBC (Bld) 0.6 % [facility] Erythrocyte distribution wid th (RBC) [Entitic vol] 19.7 % High 11.6 - 14.8 % [facility] Hematocrit (Bld) [Volume fraction] 38.3 % 3 6 - 46 % [facility] Hemoglobin (Bld) [Mass/Vol] 12.8 g/dL 12 - 16 g/dL [facility] Immature granulocytes (Bld) [#/Vol] 0.05 10*3/uL [facility] Immature granulocytes/100 WBC (Bld) 0.40 % [facility] Comment on above: The IG parameter is the percentage of metamyelocytes, myelocytes, and promyelocytes. Interpretation and review of laboratory results Abnormal [facility] Lymphocytes (Bld) [#/Vol] 3.14 10*3/uL [facility] Lymphocytes/100 WBC (Bld) 23.9 % [facility] MCH (RBC) [Entitic mass] 29.1 pg 26 - 34 pg [facility] MCHC (RBC) [Mass/Vol] 33.4 g/dL 31 - 37 g/dL [facility] MCV (RBC) [Entitic vol] 87.0 fL 80 - 100 fL [facility] Monocytes (Bld) [#/Vol] 0.67 10*3/uL [facility] Monocytes/100 WBC (Bld) 5.1 % [facility] Neutrophils (Bld) [#/Vol] 9.16 10*3/uL High [facility] Neutrophils/100 WBC (Bld) 69.6 % [facility] Nucleated RBC (Bld) [#/Vol] 0.01 10*3/uL High [facility] Nucleated RBC/100 WBC (Bld) [Ratio] 0.1 % [facility] Platelet mean volume (Bld) [Entitic vol] 10.0 fL 9 - 15.5 fL [facility] Platelets (Bld) [#/Vol] 191 10*3/uL [facility] RBC (Bld) [#/Vol] 4.40 10*6/uL [facility] ealt WBC (Bld) [#/Vol] 13.15 10*3/uL [facility] CT ABDOMEN PELVIS WITH IV CO NTRAST ONLYon 08-29-2019 CT ABDOMEN PELVIS WITH IV CONTRAST ONLY EXAMINATION: CT ABDOMEN PELVIS WITH IV CONTRAST ONLY HISTORY: ORDERING SYSTEM PROVIDED HISTORY: Abdominal pain, acute, nonlocalized, TECHNOLOGIST PROVIDED HISTORY: Illness/Other Reason for exam: abd pain Encounter Type: Initial Additional signs and symptoms: h/o pancreatitis ORDERING SYSTEM PROVIDED DIAGNOSIS CODES: COMPARISON: None TECHNIQUE: CT examination of the abdomen and pelvis following the administration of intravenous contrast. Coronal and sagittal reformations were performed. Dose reduction techniques were achieved by using automated exposure control and/or adjustment of mA and/or kV according to patient size and/or use of iterative reconstruction technique. CONTRAST: IOPAMIDOL 76 % INTRAVENOUS SOLUTION - 75 mL, FINDINGS: The imaged heart is normal in size. The lung bases demonstrate very mild atelectasis. There is hepatic steatosis. There are no calcified gallstones. The spleen and pancreas are unremarkable. There is no adrenal mass. There is no renal mass. There is no obstructive uropathy. The urinary bladder is unremarkable. The uterus and ovaries are not enlarged. The colon is largely decompressed with some wall thickening noted. There is no bowel obstruction. The appendix is normal. There is no pneumoperitoneum or ascites. The abdominal aorta is nondilated. There is no acute osseous pathology. IMPRESSION: 1. Fairly diffuse colonic wall thickening that may reflect incomplete bowel distention and spasm versus a mild colitis. There is no bowel obstruction. The appendix is normal. 2. Hepatic steatosis. Workstation ID: [id number] Dictated by: MELINA BAILEY on WedAug 29, 2019 2:37:05 PM EST Transcribed by: MELINA BAILEY on WedAug 29, 2019 2:37:05 PM EST Finalized by: MELINA BAILEY on WedAug 29, 2019 2:37:[address] [facility] Comment on above: Order Comment: Injur y/Trauma or Illness?:Illness/Other How long have you had these symptoms (acute/chronic)?:Acute Reason for exam?:abd pain Type of Exam?:Initial Additional signs and symptoms?:h/o pancreatitis CT Abdomen Pelvis With IV Co ntrast Onlyon 08-29-2019 EXAMINATION: CT ABDO MEN PELVIS WITH IV CONTRAST ONLY HISTORY: ORDERING SYSTEM PROVIDED HISTORY: Abdominal pain, acute, nonlocalized, TECHNOLOGIST PROVIDED HISTORY: Illness/Other Reason for exam: abd pain Encounter Type: Initial Additional signs and symptoms: h/o pancreatitis ORDERING SYSTEM PROVIDED DIAGNOSIS CODES: COMPARISON: None TECHNIQUE: CT examination of the abdomen and pelvis following the administration of intravenous contrast. Coronal and sagittal reformations were performed. Dose reduction techniques were achieved by using automated exposure control and/or adjustment of mA and/or kV according to patient size and/or use of iterative reconstruction technique. CONTRAST: IOPAMIDOL 76 % INTRAVENOUS SOLUTION - 75 mL, FINDINGS: The imaged heart is normal in size. The lung bases demonstrate very mild atelectasis. There is hepatic steatosis. There are no calcified gallstones. The spleen and pancreas are unremarkable. There is no adrenal mass. There is no renal mass. There is no obstructive uropathy. The urinary bladder is unremarkable. The uterus and ovaries are not enlarged. The colon is largely decompressed with some wall thickening noted. There is no bowel obstruction. The appendix is normal. There is no pneumoperitoneum or ascites. The abdominal aorta is nondilated. There is no acute osseous pathology. [facility], Rad In Fu ji Speechq - 08/29/2019 2:39 PM EST EXAMINATION: CT ABDOMEN PELVIS WITH IV CONTRAST ONLY HISTORY: ORDERING SYSTEM PROVIDED HISTORY: Abdominal pain, acute, nonlocalized, TECHNOLOGIST PROVIDED HISTORY: Illness/Other Reason for exam: abd pain Encounter Type: Initial Additional signs and symptoms: h/o pancreatitis ORDERING SYSTEM PROVIDED DIAGNOSIS CODES: COMPARISON: None TECHNIQUE: CT examination of the abdomen and pelvis following the administration of intravenous contrast. Coronal and sagittal reformations were performed. Dose reduction techniques were achieved by using automated exposure control and/or adjustment of mA and/or kV according to patient size and/or use of iterative reconstruction technique. CONTRAST: IOPAMIDOL 76 % INTRAVENOUS SOLUTION - 75 mL, FINDINGS: The imaged heart is normal in size. The lung bases demonstrate very mild atelectasis. There is hepatic steatosis. There are no calcified gallstones. The spleen and pancreas are unremarkable. There is no adrenal mass. There is no renal mass. There is no obstructive uropathy. The urinary bladder is unremarkable. The uterus and ovaries are not enlarged. The colon is largely decompressed with some wall thickening noted. There is no bowel obstruction. The appendix is normal. There is no pneumoperitoneum or ascites. The abdominal aorta is nondilated. There is no acute osseous pathology. IMPRESSION: 1. Fairly diffuse colonic wall thickening that may reflect incomplete bowel distention and spasm versus a mild colitis. There is no bowel obstruction. The appendix is normal. 2. Hepatic steatosis. Workstation ID: [id number] [facility] h 1. Fairly diffuse co lonic wall thickening that may reflect incomplete bowel distention and spasm versus a mild colitis. There is no bowel obstruction. The appendix is normal. 2. Hepatic steatosis. Workstation ID: [id number] [facility] Hepatic Function Panel (LFT) on 08-29-2019 Albumin [Mass/Vol] 3.8 g/dL 3.2 - 5.2 g/dL [facility] ALP [Catalytic activity/Vol] 62 U/L 40 - 14 0 U/L [facility] ALT [Catalytic activity/Vol] 25 U/L 14 - 65 U/L [facility] AST [Catalytic activity/Vol] 21 U/L 0 - 45 U/L [facility] Bilirubin [Mass/Vol] 0.3 mg/dL 0 - 1.3 mg/dL [facility] Bilirubin.conjugated [Mass/Vol] mg/dL 0 - 0.4 mg/dL [facility] Protein [Mass/Vol] 7.6 g/dL 6 - 8 g/dL [facility] alth Lipaseon 08-29-2019 Lipase [Catalytic activity/Vol] 102 U/L 73 - 393 U/L [facility] Otheron 08-29-2019 Extra Tube Hold for add-ons. [facility] Comment on above: Auto resulted. Interpretation and review of laboratory results Normal [facility] URINALYSISon 08-29-2019 Bacteria Auto Ql (U) None Seen None Seen /hpf [facility] Bilirubin Ql (U) Negative Negative [facility] Clarity Refractometry automated (U) Clear Clear [facility] Color (U) Colorless Colorless, Yellow [facility] Glucose Auto test strip (U) [Mass/Vol] Negative Negative mg/dL [facility] Hemoglobin Auto test strip Ql (U) Large Abnormal Negative [facility] Interpretation and review of laboratory results Abnormal [facility] Ketones (U) [Mass/Vol] Negative Negative mg/d L [facility] Leukocyte esterase Auto test strip Ql (U) Negative Negative [facility] Nitrite Auto test strip Ql (U) Negative Negative [facility] pH (U) 6.0 [pH] [facility] Protein (U) [Mass/Vol] Negative Negative mg/d L [facility] Specific gravity (U) [Rel density] 1.002 Low [facility] Urobilinogen (U) [Mass/Vol] <2.0 <2.0 mg/dL [facility] WBC Auto (Urine sed) [#/Area] <1 [facility] Microscopic examinat ion is performed on all urinalysis samples and only positive findings are reported. The test for blood on the chemical analytic portion of urinalysis may also be positive due to hemoglobinuria and myoglobinuria and if red blood cells are present they are quantified by microscopic examination. [facility] Urine Pregnancyon 08-29-2019 Beta HCG ( test) Ql (U) Urine s pecific gravity less than 1.010 can give a false negative test result. Any specimen with a specific gravity less than 1.010 or collected before the first day of a missed menstrual period should be checked with a serum test. [facility] HCG ( test) Ql (U) Negative Negative [facility] Interpretation and review of laboratory results Normal [facility] Basic Metabolic Panelon 09-26 Calcium mass conc 9.6 mg/dL Normal 8.2-10.2 [facility] Comment on above: Performed By: #### C BC, ETOH, CMP #### [facility] [address] [place] [address] [place] Chloride molar conc 103 mmol/L Normal 95-114 [facility] Comment on above: Performed By: #### C BC, ETOH, CMP #### [facility] [address] [place] [address] [place] CO2 molar conc 24.1 mmol/L Normal 22.0-30.0 [facility] Comment on above: Performed By: #### C BC, ETOH, CMP #### [facility] [address] [place] [id number] [place] Creatinine mass conc 127.1493795110 mg/dL Normal [facility] Comment on above: Result Comment: PERF ORMED BY: [place] [address] PATHOLOGIST CLIENT REPORTING ASSOCIATE CLAUDIA BAUER M.D. Performed By: #### C BC, ETOH, CMP #### [address] Creatinine mass conc 0.63 mg/dL Normal 0.44-1.03 [facility] Comment on above: Performed By: #### C BC, ETOH, CMP #### [place] [address] [place] Estimated GFR ( Khloe > 60 Normal [facility] Comment on above: Result Comment: GFR estimated reference range: According to KDOQI guidelines, <60 ml/min/1.73m2 is sufficient to diagnose a patient with chronic kidney disease. Performed By: #### C BC, ETOH, CMP #### [place] [address] [place] Estimated GFR (Non- Am > 60 Normal [facility] Comment on above: Performed By: #### C BC, ETOH, CMP #### [place] [address] [place] Glucose mass conc 91 mg/dL Normal 70-100 [facility] Comment on above: Result Comment: [place] om Glucose Reference Range is dependent on time and content of last meal. Glucose of more than 200 mg/dL in a nonstressed, ambulatory subject supports the diagnosis of Diabetes Mellitus. ADA recommended reference range Performed By: #### C BC, ETOH, CMP #### [place] [address] [place] Potassium molar conc 3.9 mmol/L Normal 3.5-5.1 [facility] Comment on above: Performed By: #### C BC, ETOH, CMP #### [place] [address] [place] Sodium molar conc 135 mmol/L Low 136-146 [facility] Comment on above: Performed By: #### C BC, ETOH, CMP #### [place] [address] [place] Urea nitrogen mass conc 4 mg/dL Low 9-23 F [facility] Comment on above: Performed By: #### C BC, ETOH, CMP #### [facility] [address] Hepatic Panelon 10-10-2018 Albumin mass conc 3.5 g/dL Normal 3.2-5.5 [facility] Comment on above: Performed By: #### H EPACLARI, BMP #### [address] Albumin/Globulin mass ratio 1.3 {ratio} Normal [facility] Comment on above: Performed By: #### H EPACLARI, BMP #### [address] ALP enzyme act/vol 72 U/L Normal 32-92 [facility] Comment on above: Performed By: #### H EPACLARI, BMP #### [facility] [address] ALT enzyme act/vol 91 U/L High 10-60 [facility] Comment on above: Performed By: #### H EPACLARI, BMP #### [facility] [address] [place] [address] AST enzyme act/vol 112 U/L High 10-42 [facility] Comment on above: Performed By: #### H EPACLARI, BMP #### [facility] [address] [place] [address] Bilirubin mass conc 0.5 mg/dL Normal 0.3-1.2 [facility] Comment on above: Performed By: #### H EPACLARI, BMP #### [facility] [address] [place] [address] [place] Bilirubin,Indirect 0.3 mg/dL Normal [facility] Comment on above: Performed By: #### H EPATIC, BMP #### [place] [address] [place] Bilirubin.direct mass conc 0.2 mg/dL Normal 0.0-0.4 [facility] Comment on above: Performed By: #### H EPACLARI, BMP #### [facility] [address] Globulin mass conc (S) 2.6 g/dL Normal [facility] Comment on above: Performed By: #### H STEVE BMP #### [facility] [address] Protein mass conc 6.1 g/dL Normal 6.1-7.9 [facility] Comment on above: Performed By: #### H STEVE, BMP #### [facility] [address] Basic Metabolic Panelon 09-26 Calcium mass conc 9.1 mg/dL Normal 8.2-10.2 [facility] Comment on above: Performed By: #### H STEVE BMP #### [address] Chloride molar conc 108 mmol/L Normal 95-114 [facility] Comment on above: Performed By: #### H STEVE BMP #### [facility] [address] [place] [address] CO2 molar conc 22.8 mmol/L Normal 22.0-30.0 [facility] Comment on above: Performed By: #### H STEVE BMP #### [facility] [address] [place] [address] Creatinine mass conc 0.53 mg/dL Normal 0.44-1.03 [facility] Comment on above: Performed By: #### H STEVE, BMP #### [facility] [address] [place] [address] Creatinine mass conc 167.2050856350 mg/dL Normal [facility] Comment on above: Result Comment: PERF ORMED BY: [place] [address] PATHOLOGIST CLIENT REPORTING ASSOCIATE CLAUDIA BAUER M.D. Performed By: #### H STEVE BMP #### [facility] [address] [place] [address] [place] Estimated GFR ( Khloe > 60 Normal [facility] Comment on above: Result Comment: GFR estimated reference range: According to KDOQI guidelines, <60 ml/min/1.73m2 is sufficient to diagnose a patient with chronic kidney disease. Performed By: #### H STEVE BMP #### [address] Estimated GFR (Non- Am > 60 Normal [facility] Comment on above: Performed By: #### H STEVE BMP #### [facility] [address] Glucose mass conc 101 mg/dL High 70-100 [facility] Comment on above: Result Comment: [place] om Glucose Reference Range is dependent on time and content of last meal. Glucose of more than 200 mg/dL in a nonstressed, ambulatory subject supports the diagnosis of Diabetes Mellitus. ADA recommended reference range Performed By: #### H STEVE BMP #### [facility] [address] [place] [address] Potassium molar conc 3.2 mmol/L Low 3.5-5.1 [facility] Comment on above: Performed By: #### H STEVE BMP #### [facility] [address] [place] [address] Sodium molar conc 137 mmol/L Normal 136-146 [facility] Comment on above: Performed By: #### H STEVE BMP #### [facility] [address] [place] [address] Urea nitrogen mass conc 3 mg/dL Low 9-23 F [facility] Comment on above: Performed By: #### H STEVE BMP #### [facility] [address] [place] [address] [place] Hepatic Panelon 10-09-2018 Albumin mass conc 3.2 g/dL Normal 3.2-5.5 [facility] Comment on above: Performed By: #### H STEVE BMP #### [address] Albumin/Globulin mass ratio 1.2 {ratio} Normal [facility] Comment on above: Performed By: #### H STEVE BMP #### [facility] [address] [place] [address] ALP enzyme act/vol 66 U/L Normal 32-92 [facility] Comment on above: Performed By: #### H STEVE BMP #### [facility] [address] [place] [address] ALT enzyme act/vol 89 U/L High 10-60 [facility] Comment on above: Performed By: #### H STEVE BMP #### [facility] [address] [place] [address] AST enzyme act/vol 156 U/L High 10-42 [facility] Comment on above: Performed By: #### H STEVE BMP #### [facility] [address] [place] [address] Bilirubin mass conc 0.5 mg/dL Normal 0.3-1.2 [facility] Comment on above: Performed By: #### H STEVE BMP #### [facility] [address] [place] [address] Bilirubin,Indirect 0.3 mg/dL Normal [facility] Comment on above: Performed By: #### H STEVE BMP #### [address] Bilirubin.direct mass conc 0.2 mg/dL Normal 0.0-0.4 [facility] Comment on above: Performed By: #### H STEVE BMP #### [facility] [address] [place] [address] Globulin mass conc (S) 2.6 g/dL Normal [facility] Comment on above: Performed By: #### H STEVE BMP #### [facility] [address] [place] [address] Protein mass conc 5.8 g/dL Low 6.1-7.9 [facility] Comment on above: Performed By: #### H STEVE BMP #### [facility] [address] [place] [address] Basic Metabolic Panelon 04- Calcium mass conc 9.2 mg/dL Normal 8.2-10.2 [facility] Comment on above: Performed By: #### H EPATIC, BMP, MG, [id number] #### [facility] [address] Chloride molar conc 105 mmol/L Normal 95-114 [facility] Comment on above: Performed By: #### H EPATIC, BMP, MG, [id number] #### [facility] [address] [place] [address] CO2 molar conc 24.1 mmol/L Normal 22.0-30.0 [facility] Comment on above: Performed By: #### H EPATIC, BMP, MG, [id number] #### [address] Creatinine mass conc 0.54 mg/dL Normal 0.44-1.03 [facility] Comment on above: Performed By: #### H EPATIC, BMP, MG, [id number] #### [address] Creatinine mass conc 163.2074902732 mg/dL Normal [facility] Comment on above: Performed By: #### H EPATIC, BMP, MG, [id number] #### [address] Estimated GFR ( Khloe > 60 [facility] Comment on above: Result Comment: GFR estimated reference range: According to KDOQI guidelines, <60 ml/min/1.73m2 is sufficient to diagnose a patient with chronic kidney disease. Performed By: #### H EPATIC, BMP, MG, [id number] #### [facility] [address] [place] [address] Estimated GFR (Non- Am > 60 [facility] Comment on above: Performed By: #### H EPATIC, BMP, MG, [id number] #### [address] Glucose mass conc 68 mg/dL Low 70-100 [facility] Comment on above: Result Comment: [place] om Glucose Reference Range is dependent on time and content of last meal. Glucose of more than 200 mg/dL in a nonstressed, ambulatory subject supports the diagnosis of Diabetes Mellitus. ADA recommended reference range Performed By: #### H EPATIC, BMP, MG, [id number] #### [facility] [address] Potassium molar conc 3.6 mmol/L Normal 3.5-5.1 [facility] Comment on above: Performed By: #### H EPATIC, BMP, MG, [id number] #### [facility] [address] Sodium molar conc 137 mmol/L Normal 136-146 [facility] Comment on above: Performed By: #### H EPATIC, BMP, MG, [id number] #### [facility] [address] Urea nitrogen mass conc 4 mg/dL Low 9-[address] [facility] Comment on above: Performed By: #### H EPATIC, BMP, MG, [id number] #### [address] Complete Blood Count Auto Di ffon 10-08-2018 Basophils #/vol (Bld) 0.0 10*3/uL Normal 0.0-0.2 [facility] Comment on above: Result Comment: PERF ORMED BY: [place] [address] PATHOLOGIST CLIENT REPORTING ASSOCIATE CLAUDIA BAUER M.D. Performed By: #### C BC, ETOH, CMP #### [address] Basophils/100 WBC (Bld) 0.4 % Normal . F [facility] Comment on above: Performed By: #### C BC, ETOH, CMP #### [facility] [address] Eosinophils #/vol (Bld) 0.0 10*3/uL Normal 0.0-0.45 [facility] Comment on above: Performed By: #### C BC, ETOH, CMP #### [place] [address] [place] Eosinophils/100 WBC (Bld) 0.4 % Normal . [facility] Comment on above: Performed By: #### C BC, ETOH, CMP #### [address] Erythrocyte distribution wid th Ratio (RBC) 17.0 % High 11.9-15.3 [facility] Comment on above: Performed By: #### C BC, ETOH, CMP #### [address] Hematocrit Volume Fraction (Bld) 40.2 % Normal 34.0-46.4 [facility] Comment on above: Performed By: #### C BC, ETOH, CMP #### [address] Hemoglobin mass conc (Bld) 13.6 g/dL Normal 11.8-15.4 [facility] Comment on above: Performed By: #### C BC, ETOH, CMP #### [address] Lymphocytes #/vol (Bld) 1.2 10*3/uL Normal 1.00-4.8 [facility] Comment on above: Performed By: #### C BC, ETOH, CMP #### [address] Lymphocytes/100 WBC (Bld) 33.3 % Normal . [facility] Comment on above: Performed By: #### C BC, ETOH, CMP #### [address] MCH Entitic mass (RBC) 33.8 g/dL Normal 32.0-35.0 [facility] Comment on above: Performed By: #### C BC, ETOH, CMP #### [address] MCH Entitic mass (RBC) 31.8 pg Normal 24.7-34.3 [facility] Comment on above: Performed By: #### C BC, ETOH, CMP #### [facility] [address] MCV Entitic volume (RBC) 94.1 fL Normal 80-100 [facility] Comment on above: Performed By: #### C BC, ETOH, CMP #### [facility] [address] Monocytes #/vol (Bld) 0.3 10*3/uL Normal 0.0-0.8 [facility] Comment on above: Performed By: #### C BC, ETOH, CMP #### [facility] [address] [place] [address] [place] Monocytes/100 WBC (Bld) 6.8 % Normal . [facility] Comment on above: Performed By: #### C BC, ETOH, CMP #### [facility] [address] Neutrophils #/vol (Bld) 2.2 10*3/uL Normal 1.8-7.7 [facility] Comment on above: Performed By: #### C BC, ETOH, CMP #### [facility] [address] Neutrophils/100 WBC (Bld) 59.1 % Normal . [facility] Comment on above: Performed By: #### C BC, ETOH, CMP #### [facility] [address] [place] [address] [place] Nucleated RBC/100 WBC Ratio (Bld) 0.1 % Normal 0- 0.5 [facility] Comment on above: Performed By: #### C BC, ETOH, CMP #### [facility] [address] [place] [address] [place] Platelet mean volume Entitic volume (Bld) 9.3 fL Normal 6.3-10.7 [facility] Comment on above: Performed By: #### C BC, ETOH, CMP #### [facility] [address] [place] [address] [place] Platelets #/vol (Bld) 52 10*3/uL Low 150-450 [facility] Comment on above: Performed By: #### C BC, ETOH, CMP #### [facility] [address] RBC #/vol (Bld) 4.27 10*6/uL Normal 3.60-5.00 [facility] Comment on above: Performed By: #### C BC, ETOH, CMP #### [facility] [address] WBC #/vol (Bld) 3.7 10*3/uL Low 4.5-11.0 [facility] Comment on above: Performed By: #### C BC, ETOH, CMP #### [facility] [address] Comprehensive Metabolic Pane danitza 10-08-2018 Albumin mass conc 4.4 g/dL Normal 3.2-5.5 [facility] Comment on above: Performed By: #### C BC, ETOH, CMP #### [facility] [address] Albumin/Globulin mass ratio 1.6 {ratio} Normal [facility] Comment on above: Performed By: #### C BC, ETOH, CMP #### [facility] [address] ALP enzyme act/vol 81 U/L Normal 32-92 [facility] Comment on above: Performed By: #### C BC, ETOH, CMP #### [facility] [address] ALT enzyme act/vol 76 U/L High 10-60 [facility] Comment on above: Performed By: #### C BC, ETOH, CMP #### [facility] [address] AST enzyme act/vol 97 U/L High 10-42 [facility] Comment on above: Performed By: #### C BC, ETOH, CMP #### [facility] [address] Bilirubin mass conc 0.7 mg/dL Normal 0.3-1.2 [facility] Comment on above: Performed By: #### C BC, ETOH, CMP #### [address] Calcium mass conc 10.3 mg/dL High 8.2-10.2 [facility] Comment on above: Performed By: #### C BC, ETOH, CMP #### [address] Chloride molar conc 104 mmol/L Normal 95-114 [facility] Comment on above: Performed By: #### C BC, ETOH, CMP #### [address] CO2 molar conc 25.6 mmol/L Normal 22.0-30.0 [facility] Comment on above: Performed By: #### C BC, ETOH, CMP #### [address] Creatinine mass conc 0.62 mg/dL Normal 0.44-1.03 [facility] Comment on above: Performed By: #### C BC, ETOH, CMP #### [address] Creatinine mass conc 128.5084260934 mg/dL [facility] Comment on above: Result Comment: PERF ORMED BY: [place] [address] PATHOLOGIST CLIENT REPORTING ASSOCIATE CLAUDIA BAUER M.D. Performed By: #### C BC, ETOH, CMP #### [address] Estimated GFR ( Khloe > 60 [facility] Comment on above: Result Comment: GFR estimated reference range: According to KDOQI guidelines, <60 ml/min/1.73m2 is sufficient to diagnose a patient with chronic kidney disease. Performed By: #### C BC, ETOH, CMP #### [address] Estimated GFR (Non- Am > 60 [facility] Comment on above: Performed By: #### C BC, ETOH, CMP #### [address] Globulin mass conc (S) 2.8 g/dL Normal [facility] Comment on above: Performed By: #### C BC, ETOH, CMP #### [facility] [address] Glucose mass conc 95 mg/dL Normal 70-100 [facility] Comment on above: Result Comment: [facility] Glucose Reference Range is dependent on time and content of last meal. Glucose of more than 200 mg/dL in a nonstressed, ambulatory subject supports the diagnosis of Diabetes Mellitus. ADA recommended reference range Performed By: #### C BC, ETOH, CMP #### [facility] [address] Potassium molar conc 4.1 mmol/L Normal 3.5-5.1 [facility] Comment on above: Performed By: #### C BC, ETOH, CMP #### [address] Protein mass conc 7.2 g/dL Normal 6.1-7.9 [facility] Comment on above: Performed By: #### C BC, ETOH, CMP #### [address] Sodium molar conc 140 mmol/L Normal 136-146 [facility] Comment on above: Performed By: #### C BC, ETOH, CMP #### [address] Urea nitrogen mass conc 4 mg/dL Low 9-[address] [facility] Comment on above: Performed By: #### C BC, ETOH, CMP #### [facility] [address] [place] [address] Ethyl Alcohol Profileon 09-26 Ethanol mass conc mg/dL Normal [facility] Comment on above: Performed By: #### C BC, ETOH, CMP #### [address] Percent Ethanol Test not performed Normal [facility] Comment on above: Result Comment: PERF ORMED BY: [place] [address] PATHOLOGIST CLIENT REPORTING ASSOCIATE CLAUDIA BAUER M.D. Performed By: #### C BC, ETOH, CMP #### [facility] [address] [place] [address] Hepatic Panelon 10-08-2018 Albumin mass conc 3.7 g/dL Normal 3.2-5.5 [facility] Comment on above: Performed By: #### H EPATIC, BMP, MG, [id number] #### [facility] [address] [place] [address] Albumin/Globulin mass ratio 1.5 {ratio} Normal [facility] Comment on above: Performed By: #### H EPATIC, BMP, MG, [id number] #### [facility] [address] [place] [address] ALP enzyme act/vol 70 U/L Normal 32-92 [facility] Comment on above: Performed By: #### H EPATIC, BMP, MG, [id number] #### [address] ALT enzyme act/vol 77 U/L High 10-60 [facility] Comment on above: Performed By: #### H EPATIC, BMP, MG, [id number] #### [facility] [address] [place] [address] AST enzyme act/vol 142 U/L High 10-42 [facility] Comment on above: Performed By: #### H EPATIC, BMP, MG, [id number] #### [address] Bilirubin mass conc 0.9 mg/dL Normal 0.3-1.2 [facility] Comment on above: Performed By: #### H EPATIC, BMP, MG, [id number] #### [address] Bilirubin,Indirect 0.7 mg/dL Normal [facility] Comment on above: Performed By: #### H EPATIC, BMP, MG, [id number] #### [address] Bilirubin.direct mass conc 0.2 mg/dL Normal 0.0-0.4 [facility] Comment on above: Performed By: #### H EPATIC, BMP, MG, [id number] #### [facility] [address] [place] [address] Globulin mass conc (S) 2.5 g/dL Normal [facility] Comment on above: Performed By: #### H EPATIC, BMP, MG, [id number] #### [address] Protein mass conc 6.2 g/dL Normal 6.1-7.9 [facility] Comment on above: Performed By: #### H EPATIC, BMP, MG, [id number] #### [address] Magnesiumon 10-08-2018 Magnesium mass conc 1.7 mg/dL Normal 1.6-2.6 [facility] Comment on above: Performed By: #### H EPATIC, BMP, MG, [id number] #### [address] Vit. B12/Folate Profileon Cobalamin (Vitamin B12) mass conc 337 pg/mL Normal 180-914 [facility] Comment on above: Performed By: #### H EPATIC, BMP, MG, [id number] #### [address] Folate 8.9 ng/mL Normal [facility] Comment on above: Result Comment: Shea te reference range: >5.9 ng/ml The WHO technical consultation on folate and vitamin b12 deficiencies has determined that folate concentrations less than 4 ng/ml are considered deficient. PERFORMED BY: [place] [address] PATHOLOGIST CLIENT REPORTING ASSOCIATE CLAUDIA BAUER M.D. Performed By: #### H EPATIC, BMP, MG, [id number] #### [address] Vital Signs Date Time Vital Sign Value Performing Clinician Facility 05-12-2023 13:48-0500 Respiratory rate 16 /min Neeraj JAEGERMelody [facility] 06-05-2020 12:47-0500 BMI (Body Mass Index) 30.04 kg/m2 Radha Li [facility] 06-05-2020 12:47-0500 Body Temperature 98.8 [degF] [facility] 06-05-2020 12:47-0500 Body weight 79.38 kg [facility] 06-05-2020 12:47-0500 BP Diastolic 79 mm[Hg] [facility] 06-05-2020 12:47-0500 BP Systolic 114 mm[Hg] [facility] 06-05-2020 12:47-0500 [facility] 162.6 [facility] 06-05-2020 12:47-0500 Pulse (Heart Rate) 118 /min [facility] 06-05-2020 12:47-0500 Pulse Oximetry 95 % [facility] 06-05-2020 12:47-0500 Respiratory Rate 14 /min [facility] 05-21-2020 18:13-0500 BMI (Body Mass Index) 30.04 kg/m2 [facility] 05-21-2020 18:13-0500 Body Temperature 97.9 [degF] [facility] 05-21-2020 18:13-0500 Body weight 79.38 kg [facility] 05-21-2020 18:13-0500 BP Diastolic 88 mm[Hg] [facility] 05-21-2020 18:13-0500 BP Systolic 122 mm[Hg] [facility] 05-21-2020 18:13-0500 Height 162.6 cm [facility] 05-21-2020 18:13-0500 Pulse (Heart Rate) 109 /min [facility] 05-21-2020 18:13-0500 Pulse Oximetry 97 % [facility] 05-21-2020 18:13-0500 Respiratory Rate 18 /min Onofre Rowell [facility] 10-11-2019 14:50-0400 BMI (Body Mass Index) 27.12 kg/m2 [facility]-11-2019 14:50-0400 Body Temperature 97.5 [degF] [facility] 10-11-2019 14:50-0400 Body weight 71.67 kg [facility] 10-11-2019 14:50-0400 BP Diastolic 70 mm[Hg] [facility] 10-11-2019 14:50-0400 BP Systolic 126 mm[Hg] [facility] 10-11-2019 14:50-0400 Height 162.6 cm [facility] 10-11-2019 14:50-0400 Pulse (Heart Rate) 91 /min [facility] 10-11-2019 14:50-0400 Pulse Oximetry 96 % [facility] 10-11-2019 14:50-0400 Respiratory Rate 16 /min [facility] 10-09-2019 08:38-0400 BMI (Body Mass Index) 27.12 kg/m2 Ollie Feng [facility] 10-09-2019 08:38-0400 Body Temperature 98.1 [degF] Ollie Feng [facility] 10-09-2019 08:38-0400 Body weight 71.67 kg Ollie Feng [facility] 10-09-2019 08:38-0400 BP Diastolic 75 mm[Hg] Ollie Feng [facility] 10-09-2019 08:38-0400 BP Systolic 112 mm[Hg] Ollie Feng [facility] 10-09-2019 08:38-0400 Height 162.6 cm Ollie Feng [facility] 10-09-2019 08:38-0400 Pulse (Heart Rate) 89 /min Ollie Feng [facility] 10-09-2019 08:38-0400 Pulse Oximetry 97 % Ollie Feng [facility] 10-09-2019 08:38-0400 Respiratory Rate 16 /min Ollie Feng [facility] 10-07-2019 13:51-0400 BP Diastolic 83 mm[Hg] Gwendolyn Tee [facility] 10-07-2019 13:51-0400 BP Systolic 110 mm[Hg] [facility] 10-07-2019 13:51-0400 Pulse (Heart Rate) 76 /min [facility] 10-07-2019 13:51-0400 Pulse Oximetry 98 % Gwendolyn [facility] 10-07-2019 13:51-0400 Respiratory Rate 16 /min [facility] 10-07-2019 12:02-0400 Body Temperature 97.5 [degF] [facility] 10-07-2019 11:57-0400 BMI (Body Mass Index) 27.12 kg/m2 [facility] 10-07-2019 11:57-0400 Body weight 71.67 kg Gwendolyn [facility] 10-07-2019 11:57-0400 Height 162.6 cm Gwendolyn [facility] 08-29-2019 14:15-0500 BP Diastolic 81 mm[Hg] Boonemir Resendiz [facility] 08-29-2019 14:15-0500 BP Systolic 116 mm[Hg] Boonemir Resendiz [facility] 08-29-2019 14:15-0500 Pulse (Heart Rate) 84 /min Boonemir Resendiz [facility] 08-29-2019 14:15-0500 Pulse Oximetry 97 % Boonemir Resendiz [facility] 08-29-2019 13:01-0500 BMI (Body Mass Index) 23.69 kg/m2 Boonemir Resendiz [facility] 08-29-2019 13:01-0500 Body Temperature 98.1 [degF] Boonemir Resendiz [facility] 08-29-2019 13:01-0500 Body weight 62.6 kg Boonemir Resendiz [facility] 08-29-2019 13:01-0500 Height 162.6 cm Boonemir Resendiz [facility] 08-29-2019 13:01-0500 Respiratory Rate 18 /min Boonemir Resendiz [facility] Encounters Encounter Date Encounter Type Care Provider Facility Start: 06-09-2023 End: 06-09-2023 ambulatory DARNELL ZALDIVAR Not Available Start: 06-02-2023 End: 06-03-2023 ambulatory Neeraj MUNOZ Facility: [facility] Start: 06-02-2023 End: 06-02-2023 Patient encounter procedure Neeraj MUNOZ General Surgery Nill/[facility]aid [facility] Start: 05-27-2023 End: 05-28-2023 ambulatory IMTIAZ METZ Not Available Start: 05-18-2023 End: 05-19-2023 ambulatory Neeraj R HEIDEL Facility:[facility] Start: 05-18-2023 End: 05-18-2023 Patient encounter procedure Neeraj Hendrix NILL General Surgery Nill/[facility]aid [facility] Start: 05-12-2023 End: 05-13-2023 ambulatory Neeraj R NILL Facility:[facility] Start: 05-12-2023 End: 05-12-2023 Patient encounter procedure Neeraj Hendrix NILL General Surgery Nill/Said [facility] Start: 05-03-2023 ambulatory Neeraj MUNOZ Facility: [facility] Start: 10-09-2021 End: 10-12-2021 Evaluation and management of inpatient DR LARRY TORRES Facility:[facility] Start: 08-30-2021 End: 08-30-[address] GOLD LAY Facility:[facility] Start: 07-04-2021 End: 07-04-[address] OSMIN MCGEE Facility:[facility] Start: 06-04-2021 End: 06-04-2021 ambulatory SILVA SARMIENTO Facility:[facility] Start: 04-26-2021 End: 04-26-[address] BOONE HOLT Facility:[facility] Start: 10-09-2020 Patient encounter procedure PHYSICIAN SHAHNAZ [facility] Start: 06-12-2020 End: 06-12-2020 Patient encounter procedure HESHAM BARNES [facility] Start: 06-05-2020 End: 06-05-2020 Emergency department patient visit PHYSICIAN SHAHNAZ [facility] Start: 06-05-2020 End: 06-05-2020 Emergency department patient visit Radha Li Work Phone: [facility] Comment on above: COVID-19 virus infec tion (Primary Dx); Nonintractable headache, unspecified chronicity pattern, unspecified headache type; Myalgia; Fatigue, unspecified type Start: 05-21-2020 End: 05-21-2020 Emergency department patient visit PHYSICIAN [facility] Start: 05-21-2020 End: 05-21-2020 Emergency department patient visit Onofre Khoa Rowell Work Phone: [facility] Comment on above: COVID-19 virus infec tion (Primary Dx) Start: 2020 End: 2020 Documentation procedure Kayelee Book [facility] Comment on above: No show inital appoi ntment 01/29/2020 Start: 10-11-2019 End: 10-11-2019 Emergency department patient visit PHYSICIAN NO [facility] Start: 10-11-2019 End: 10-11-2019 Emergency department patient visit Radha Li Work Phone: [facility] Comment on above: Wound check, abscess (Primary Dx); Dressing change Start: 10-09-2019 End: 10-09-2019 Emergency department patient visit PHYSICIAN [facility] Start: 10-09-2019 End: 10-09-2019 Emergency department patient visit Ollie Feng Work Phone: [facility] Comment on above: Encounter for rechec k of abscess following incision and drainage (Primary Dx) Start: 10-07-2019 End: 10-07-2019 Emergency department patient visit PHYSICIAN [facility] Start: 10-07-2019 End: 10-07-2019 Emergency department patient visit Gwendolyn Tee Work Phone: [facility] Comment on above: Abscess of left [address] (Primary Dx) Start: 08-29-2019 End: 08-29-2019 Emergency department patient visit BOONE RESENDIZ [facility] Start: 08-29-2019 End: 08-29-2019 Emergency department patient visit Boone Resendiz Work Phone: [facility] Comment on above: Nausea and vomiting, intractability of vomiting not specified, unspecified vomiting type (Primary Dx); Epigastric pain; Alcohol abuse Start: 10-08-2018 End: 10-10-2018 Evaluation and management of inpatient Jericho Barreto Facility:[facility] Procedures Date Procedure Procedure Detail Performing Clinician Start: 05-21-2020 COVID-19/INFLUENZA A,B MOLECULAR Ajay Duran Work Phone: Start: 10-07-2019 Incision AND drainage Maria Elena West Work Phone: Start: 08-29-2019 Ct abdomen & pelvis w/contrast material Ajay Duran Work Phone: Start: 08-29-2019 Basic metabolic 2000 panel - Serum or Plasma Ajay Duran Work Phone: Start: 08-29-2019 Choriogonadotropin ( test) [Presence] in Urine Ajay Duran Work Phone: Start: 08-29-2019 Complete blood count with white cell differential, automated Ajay Duran Work Phone: Start: 08-29-2019 Complete blood count with white cell differential, manual Ajay Duran Work Phone: Start: 08-29-2019 Ethanol [Mass/volume] in Serum or Plasma Ajay Duran Work Phone: Start: 08-29-2019 Hepatic function 2000 panel - Serum or Plasma Ajay Duran Work Phone: Start: 08-29-2019 LIGHT BLUE TOP Ajay Duran Work Phone: Start: 08-29-2019 LIGHT GREEN TOP Ajay Duran Work Phone: Start: 08-29-2019 Lipase [Enzymatic activity/volume] in Serum or Plasma Ajay Duran Work Phone: Start: 08-29-2019 RAINBOW DRAW Ajay Duran Work Phone: Start: 08-29-2019 Urinalysis Ajay Duran Work Phone: Start: 08-29-2019 URINE BERNARD CONTAINER Ajay Duran Work Phone: Start: 08-29-2019 URINE YELLOW CONTAINER Ajay Chengshawna Work Phone: section Neeraj JAEGER [facility] Mastotomy with drain age of deep abscess Neeraj JAEGERMelody Plan of Treatment Date Care Activity Detail Author Start: 06-12-2020 End: 06-12-2020 Telemedicine 06/12/2020 Telemedicine Primary Care Hesham Barnes, PERCUSSION INSTRUCTOR [address] [place] [address] [phone] [facility] Start: 05-22-2020 End: 05-22-2020 Office Visit 05/22/2020 Office Visit Obstetrics and Gynecology Franklyn Gabriel MD [address] [place] [address] [phone] [facility] Obstetrics [facility]necology Start: 02-27-2020 Influenza vaccination given Sequential Influenza Vaccine (#1) [facility] Start: 02-26-2019 Influenza vaccination given Sequential Influenza Vaccine (#1) [facility] Start: 2005 Hepatitis C antibody, confirmatory test [facility]atitis C Screening [facility] Start: 2002 HIV screening HIV Screening [facility] Start: 1999 Adolescent depression screening assessment Depression Screening (PHQ9) [facility] Start: 1990 History and physical examination, annual for health maintenance Wellness Visit [facility] Start: 1987 Depression screening using PHQ-9 (Patient Health Questionnaire 9) score Depression Screening (PHQ9) [facility] Start: 1987 Screening for malignant neoplasm of cervix Pap Smear [facility] Start: 1987 Tetanus vaccination Tetanus: Every 10yrs [facility] End: 10-07-2019 Aerobic microbial culture Wound Aerobic Culture Microbiology Routine Once for 1 Occurrences starting 10/07/2019 until 10/07/2019 [facility] Comment on above: Once for 1 Occurrenc es starting 10/07/2019 until 10/07/2019 Aerobic microbial culture Wound Aerobic Culture Microbiology Routine 10/07/2019 1:30 PM EDT [facility] End: 10-07-2019 Wound Anaerobic Culture Wound Anaerobic Culture Microbiology Routine Once for 1 Occurrences starting 10/07/2019 until 10/07/2019 [facility] Comment on above: Once for 1 Occurrenc es starting 10/07/2019 until 10/07/2019 Wound Anaerobic Culture Wound An aerobic Culture Microbiology Routine 10/07/2019 1:30 PM EDT [facility] Immunizations Immunization Date Immunization Notes Care Provider Ceasar cotto NEGATED: Highlighted row has not occurred!05-12-2023 influenza virus vaccine, unspecified formulation Neeraj MUNOZ [facility] Payers Date Payer Category Payer Unknown [id number] 2019 Private Health Insurance CIG[employer] C IGNA CHOICE FUND-ANY CHOICE FUND [id number] 2019-Present [id number] 2019 Private Health Insurance [id number] 2018 Medicaid [employer] [place] [place] [employer] [id number] 2018-Present [id number] 2018 Private Health Insurance xxx [id number] 2018 Self-pay 2018 Unknown [id number] 2015 Unknown [id number] 1987 Unknown [id number] 2.840.1.919887.3.579.2. 1987 Unknown [id number] 2.16840.1.183199.3.579.2 1987 Unknown [id number] 2.16840.1.953879.3.579.2. 1987 Unknown [id number] 2.16840.1.658463.3.579.2. 1987 Unknown [id number] 2.16.840.1.246008.3.579.2. 90 1987 Unknown [id number] 2.16840.1.920364.3.579.2. 903 1987 Unknown [id number] 2.16.840.1.474173.3.579.2. 903 1987 Unknown [id number] 2.16.840.1.451883.3.579.2. 903 1987 Unknown [id number] 2.16.840.1.396094.3.579.2. 593 1987 Unknown [id number] 2.16.840.1.458867.3.579.2. 593 1987 Unknown [id number] 2.16.840.1.484884.3.579.2. 593 1987 Unknown [id number] 2.16.840.1.095413.3.579.2. 593 1987 Unknown [id number] 2.16.840.1.610054.3.579.2. 593 1987 Unknown [id number] 2.16.840.1.015431.3.579.2. 727 1987 Unknown [id number] 2.16.840.1.216081.3.579.2. 727 1987 Unknown [id number] 2.16.840.1.570001.3.579.2. 727 1987 Unknown [id number] 2.16.840.1.434851.3.579.2. 727 1987 Unknown [id number] 2.16.840.1.712484.3.579.2. 727 1987 Unknown [id number] 2.16.840.1.128714.3.579.2. 1259 1987 Unknown [id number] 2.16.840.1.128024.3.579.2. 1259 1959 Private Health Insurance [id number] 1959 Unknown [id number] Unknown [id number] 2.16.840.1.065539.3.579.2. 531 Social History Date Type Detail Facility Start: 08-29-2019 End: 06-05-2020 Tobacco smoking status NHIS Current every day smoker [facility] History of tobacco use Cigarette [facility] Start: 08-29-2019 End: 06-05-2020 Cigarettes smoked current (pack per day) - Reported [facility] Start: 08-29-2019 End: 06-05-2020 Alcohol intake Current drinker of alcohol (finding) [facility] Start: 08-29-2019 Alcohol [facility] Start: 10-07-2019 Alcohol Comment socially [facility] Exposure to SARS-CoV -2 (event) Unable to assess [facility] Start: 05-21-2020 End: 06-05-2020 Tobacco use and exposure Never used [facility] Exposure to SARS-CoV -2 (event) Yes [facility] Start: 05-12-2023 Tobacco smoking status Heavy t obacco smoker (finding) [facility] Tobacco smoking status Never [facility] Sex Assigned At Female [facility] Functional Status Date Assessment Result Facility 05-12-2023 Functional Status N/A [facility] Evaluation + Plan note Note Date & Type Note Facility Evaluation + Plan note Future Appointments Appointment Date:05/18/2023 01:00:00 PM Scheduled Provider:Neeraj MUNOZ MD Location:[facility] Appointment Type: Post Op 15 [facility] Hospital course Narrative Note Date & Type Note Facility Hospital course Narrative No data available for this section [facility] Discharge instructions Note Date & Type Note Facility Hospital Discharge instructions No data available for this section [facility] Progress note Note Date & Type Note Facility Progress note No data available for this section [facility] Summary Purpose Family History No Family History Records FoundNo Family History Records FoundNo Family History Records FoundNo Family History Records Found No data available for this section No data available for this section No data available for this section No Family History Records FoundNo Family History Records Found Advance Directives No Advanced Directives Records FoundDocuments on File Type Date Recorded Patient Funeral Planning Counselor Expl anation Advance Directives and Livin g Will 08/29/2019 1:59 PM Documents on File Type Date Recorded Patient Funeral Planning Counselor Expl anation Advance Directives and Livin g Will 10/07/2019 12:14 PM Documents on File Type Date Recorded Patient Funeral Planning Counselor Expl anation Advance Directives and Livin g Will 10/09/2019 8:52 AM Documents on File Type Date Recorded Patient Funeral Planning Counselor Expl anation Advance Directives and Livin g Will 10/11/2019 8:52 AM Documents on File Type Date Recorded Patient Funeral Planning Counselor Expl anation Advance Directives and Livin g Will 05/21/2020 8:52 AM Documents on File Type Date Recorded Patient Funeral Planning Counselor Expl anation Advance Directives and Livin g Will 06/05/2020 8:52 AM Discharge Instructions * Attachments The following attachments cannot be sent through Care Everywhere. * Abdominal Pain (Peruvian) * Nausea and Vomiting (Peruvian) documented in this encounter* Attachments The following attachments cannot be sent through Care Everywhere. * Abscess: Skin (Peruvian) documented in this encounter* Attachments The following attachments cannot be sent through Care Everywhere. * Abscess: Skin (Peruvian) documented in this encounter* Attachments The following attachments cannot be sent through Care Everywhere. * Abscess: Skin (Peruvian) documented in this encounter* Instructions* Ajay Duran PA-C - 05/21/2020 Stay home and away from other people. Rest, fluids, Tylenol. Return for difficulty breathing, uncontrolled fevers, or any other problems or concerns. You did test positive for COVID-19 today. * Attachments The following attachments cannot be sent through Care Everywhere. * COVID-19 SELF ISOLATION DISCHARGE INSTRUCTIONS * Coronavirus Disease (COVID-19): General Info (Peruvian) documented in this encounter* Attachments The following attachments cannot be sent through Care Everywhere. * Fatigue (Peruvian) * Coronavirus Disease (COVID-19): General Info (Peruvian) * COVID-19: Taking Care of Yourself If You Have It: Video (Peruvian) * Myalgia (Peruvian) documented in this encounter Assessments Diagnosis Nausea and vomiting, intractability of vomiting not specified, unspecified vomiting type Epigastric pain Abdominal pain, epigastric Alcohol abuse Nondependent alcohol abuse, unspecified drinking behavior Diagnosis Abscess of left breast Diagnosis Encounter for recheck of abscess following incision and drainage Diagnosis Wound check, abscess Dressing change Encounter for change or removal of nonsurgical wound dressing Diagnosis COVID-19 virus infection- Primary Encounter for annual routine gynecological examination- Primary Screening for malignant neoplasm of cervix Screening for malignant neoplasm of the cervix Diagnosis COVID-19 virus infection- Primary Nonintractable headache, unspecified chronicity pattern, unspecified headache type Myalgia Unspecified myalgia and myositis Fatigue, unspecified type History of Present Illness * Oh Wesley MA - 2020 11:32 AM EDT Attempted to contact patient about now showing their initial appointment on 01/29/2020 with Sweta Duke CNP. Voice message was available. Will attempt to call 1 more time before proceeding with Termination process. documented in this encounter Additional Source Comments INFORMATION SOURCE (unrecogn ized section and content) DATE CREATED AUTHOR 10/10/2018 [facility] DATE CREATED AUTHOR AUTHOR'S ORGANIZ ATION 06/13/2020 [facility] DATE CREATED AUTHOR AUTHOR'S ORGANIZ ATION 10/09/2020 [facility] DATE CREATED AUTHOR AUTHOR'S ORGANIZ ATION 12/17/2021 [facility] DATE CREATED AUTHOR AUTHOR'S ORGANIZ ATION 06/07/2023 [facility] DATE CREATED AUTHOR AUTHOR'S ORGANIZ ATION 06/11/2023 [facility] Reason for Visit (unrecogniz ed section and content) Reason Comments Abdominal Pain Reason Comments Abscess Reason Comments Wound Check Reason Comments No show inital appointment 01/29/2020 Reason Comments Cough Fatigue Reason Comments covid+ Headache Generalized Body Aches Ajay Duran PA-C - 08/29/2019 1:35 PM Shannan Olsen RN - 08/29/2019 1:02 PM Shannan Olsen RN - 08/29/2019 12:59 PM Maria Elena Francis CNP - 10/07/2019 12:33 PM EDT ED Notes (unrecognized secti on and content) [facility] ED Physician Note: NAME: Shannan Carter 34 y.o. CSN: [id number] PCP: Physician No Clinical Impression: 1. Nausea and vomiting, intractability of vomiting not specified, unspecified vomiting type 2. Epigastric pain 3. Alcohol abuse Disposition: Patient is being discharged to home New Prescriptions ondansetron (Zofran) 4 MG tablet Take 1 (one) tablet (4 mg total) by mouth every 8 (eight) hours as needed for nausea . ranitidine (ZANTAC) 150 MG capsule Take 1 (one) capsule (150 mg total) by mouth 2 (two) times a day for 10 days . Follow-up Information 1. [facility] - Primary Care Services. Why: Recheck of todays complaint [address] [address] 2. Miguel Sarkar III, MD. Specialties: General Surgery, Interventional Radiology, Breast Surgery Why: Recheck of todays complaint [phone] [address] 3. [facility] Emergency Department. Specialty: Emergency Medicine Why: If symptoms worsen [address] [place] [address] Contact information for after-discharge care Follow-up information has not been specified. History: Chief Complaint: Abdominal Pain HPI: The history was obtained from the patient. She is a 34 y.o. female who presents with a chief complaint of Abdominal Pain. HPI patient presents to the emergency department concerns for pancreatitis. She reports she has had pancreatitis a few times in the past. She reports yesterday developing upper abdominal pain with associated nausea says vomitus is diarrhea. She reports recently drinking and now having problems. She does not report daily drinking but she does report frequent drinking. Nothing makes her symptoms better nothing makes her symptoms worse. She has not seen a PCP for this. She has not tried anything for the symptoms. PMHx: Past Medical History: Diagnosis Date Cancer (HCC) Disease of thyroid gland Pancreatitis PMSx: History reviewed. No pertinent surgical history. FAM. Hx: History reviewed. No pertinent family history. SOC. Hx: Social History Socioeconomic History Marital status: Single Spouse name: Not on file Number of children: Not on file Years of education: Not on file Highest education level: Not on file Occupational History Not on file Social Needs Financial resource strain: Not on file Food insecurity Worry: Not on file Inability: Not on file Transportation needs Medical: Not on file Non-medical: Not on file Tobacco Use Smoking status: Current Every Day Smoker Packs/day: 1.00 Types: Cigarettes Smokeless tobacco: Never Used Substance and Sexual Activity Alcohol use: Yes Comment: daily Drug use: Yes Types: Marijuana Sexual activity: Not on file Lifestyle Physical activity Days per week: Not on file Minutes per session: Not on file Stress: Not on file Relationships Social connections Talks on phone: Not on file Gets together: Not on file Attends restorationist service: Not on file Active member of club or organization: Not on file Attends meetings of clubs or organizations: Not on file Relationship status: Not on file Other Topics Concern Not on file Social History Narrative Not on file MEDs: No current outpatient medications on file prior to encounter. ALL: Allergies Allergen Reactions Penicillins Rash ROS: Review of Systems Constitutional: Negative for chills, fatigue and fever. Respiratory: Negative for cough and shortness of breath. Cardiovascular: Negative for chest pain. Gastrointestinal: Positive for abdominal pain, diarrhea, nausea and vomiting. Genitourinary: Negative. Skin: Negative for rash. All other systems reviewed and are negative. Positives and pertinent negatives as per HPI. All other systems were reviewed and are negative. Physical Exam: Patient Vitals for the past 24 hrs: BP Temp Temp src Pulse Resp SpO2 Height Weight 08/29/19 1415 116/81 84 97 % 08/29/19 1400 113/85 94 96 % 08/29/19 1301 123/85 98.1 F (36.7 C) Oral (!) 119 18 96 % 5' 4 62.6 kg (138 lb) Physical Exam Vitals signs and nursing note reviewed. Constitutional: Appearance: Normal appearance. She is not ill-appearing, toxic-appearing or diaphoretic. Comments: Patient appears uncomfortable HENT: Head: Normocephalic and atraumatic. Right Ear: External ear normal. Left Ear: External ear normal. Nose: Nose normal. Mouth/Throat: Mouth: Mucous membranes are moist. Eyes: Extraocular Movements: Extraocular movements intact. Pupils: Pupils are equal, round, and reactive to light. Neck: Musculoskeletal: Normal range of motion and neck supple. Cardiovascular: Rate and Rhythm: Normal rate and regular rhythm. Pulses: Normal pulses. Heart sounds: Normal heart sounds. Pulmonary: Effort: Pulmonary effort is normal. Breath sounds: Normal breath sounds. Abdominal: General: Bowel sounds are normal. Palpations: Abdomen is soft. Comments: Diffuse pain with palpation to the upper abdomen. No rebound or guarding. No lower abdominal tenderness Musculoskeletal: Normal range of motion. Skin: General: Skin is warm and dry. Neurological: General: No focal deficit present. Mental Status: She is alert and oriented to person, place, and time. Cranial Nerves: No cranial nerve deficit. Psychiatric: Mood and Affect: Mood normal. Behavior: Behavior normal. Laboratory & Radiological Imaging (if done): Labs Reviewed BASIC METABOLIC PANEL - Abnormal; Notable for the following components: Result Value Chlor[place] 111 (*) All other components within normal limits Narrative: The eGFR should be used for monitoring renal function only and not for medication dosing. URINALYSIS - Abnormal; Notable for the following components: Specific [place] 1.002 (*) Blood, Urine Large (*) All other components within normal limits Narrative: Microscopic examination is performed on all urinalysis samples and only positive findings are reported. The test for blood on the chemical analytic portion of urinalysis may also be positive due to hemoglobinuria and myoglobinuria and if red blood cells are present they are quantified by microscopic examination. ALCOHOL, MEDICAL - Abnormal; Notable for the following components: Alcohol (Medical) 342.00 (*) All other components within normal limits CBC WITH AUTO DIFFERENTIAL - Abnormal; Notable for the following components: WBC 13.15 (*) RDW - CV 19.7 (*) Neutrophils Abs 9.16 (*) Nucleated RBC Abs 0.01 (*) All other components within normal limits LIPASE - Normal HEPATIC FUNCTION PANEL - Normal HCG URINE, QUALITATIVE - Normal Narrative: Urine specific gravity less than 1.010 can give a false negative test result. Any specimen with a specific gravity less than 1.010 or collected before the first day of a missed menstrual period should be checked with a serum test. CBC AND DIFFERENTIAL Narrative: The following orders were created for panel order CBC w/ Diff. Procedure Abnormality Status --------- ------ CBC Auto Differential[[id number]] Abnormal Final result Please view results for these tests on the individual orders. CT Abdomen Pelvis With IV Contrast Only Final Result 1. Fairly diffuse colonic wall thickening that may reflect incomplete bowel distention and spasm versus a mild colitis. There is no bowel obstruction. The appendix is normal. 2. Hepatic steatosis. Workstation ID: [id number] Procedures: Procedures ED Course/ Medical Decision Making: ED Course: Patient was seen and evaluated with above complaint. Laboratories were obtained and patient has normal lipase, LFTs, CBC, chemistry. She was given fluids, Zofran and morphine. Alcohol level was obtained and elevated. CT scan of the abdomen pelvis was performed. Patient remained stable. Results were discussed with patient. Discussed need to decrease her alcohol consumption. Discussed she could be having some gastritis causing symptoms. Patient given GI cocktail. Discussed following up with PCP for recheck. Discussed return if worse problems or concerns. Medical Decision Making: Considered AAA, appendicitis, diverticulitis, pancreatitis, perforated peptic ulcer, perforated viscus, early appendicitis, bowel obstruction, cholecystitis, constipation, gastroenteritis, hepatitis, inflammatory bowel disease, intussusception, ischemic bowel, neoplasm, PUD, renal/ureteral calculi, gonadal torsion, UTI, volvulus. Currently no surgical or severe medical etiology found. Pt afebrile, tolerating po without difficulty, good pain control, patient able to follow detailed discharge instructions provided. If worsening pain or concerns return to ED. Otherwise follow up with pcp in 12-24 hours for recheck. Labs all normal other than elevated alcohol level. CBC, chemistry, lipase, LFTs normal. Patient having upper abdominal pain. There is no signs of pancreatitis at this time. Could be having some gastritis due to alcohol use. CT scan does show fairly diffuse colonic wall thickening that may reflect incomplete bowel distention and spasm versus a mild colitis. This is likely more incomplete bowel distention and spasm versus colitis. She has no left-sided abdominal pain. She has normal WBC. She is afebrile. She has no history of colitis. I feel the patient can be discharged home with close follow-up and return for worse problems or concerns. OARS report reviewed on this patient The patient has been informed that they may have pre-hypertension or hypertension based on a blood pressure reading in the Emergency Department. I recommend that the patient call the primary care provider listed on their discharge instructions or a physician of their choice as soon as possible to arrange follow-up in the next 4 weeks for further evaluation of possible pre-hypertension or hypertension. . Ajay Duran PA-C ED Physician Housekeeper Caregiver [facility] Emergency Department (Please note that portions of this note have been completed with a voice recognition software. Efforts were made to correct any errors, but occasionally words are mis-transcribed.) Ajay Duran PA-C 08/29/19 1511 Also reports that she went on an alcohol binge last weekend which flared it up. Pt reports Its my pancreas. States she is usually seen at [facility] and recently moved here, has a history of pancreatitis. documented in this encounter Associated Order(s): Incision/Drainage [facility] ED Physician Note: NAME: Shannan Carter 34 y.o. CSN: [id number] PCP: Physician No Chief Complaint: Abscess Clinical Impression: 1. Abscess of left breast ED Course/ Medical Decision Making: Patient presents with left breast abscess. She had similar episode 2 years ago. Patient is not immunocompromised patient vital signs stable, denies any fever The area is limited surrounding left breast tissue surrounding the areola but not directly involving nipple. I&D performed, patient tolerated procedure well. Patient was given first dose of Bactrim and Keflex, wound culture sent. No signs of systematic illness at this time. Advise close follow-up with PCP or come back to the emergency room for recheck in 2 days. Patient verbalized understanding and agreement with the treatment plan. Considered cellulitis, cyst, hematoma, insect bite. Patient with uncomplicated abscess. I&D performed. Patient is afebrile. Provided with dose of antibiotics in the ED. Will continue as outpatient with follow up in ED or PCP in 48 hours for recheck. Patient and family verbalize understanding and agree with plan of care. If patient is currently a smoker or uses a tobacco product, I did primary substance abuse counselor them on benefits and resources of smoking/tobacco use cessation. Disposition: Patient is being discharged to home New Prescriptions cephALEXin (KEFLEX) 500 MG capsule Take 1 (one) capsule (500 mg total) by mouth 4 (four) times a day for 10 days . sulfamethoxazole-trimethoprim (BACTRIM DS,SEPTRA DS) 800-160 mg per tablet Take 1 (one) tablet by mouth 2 (two) times a day for 10 days . ibuprofen (ADVIL,MOTRIN) 600 MG tablet Take 1 (one) tablet (600 mg total) by mouth every 8 (eight) hours as needed for pain Take with food . Follow-up Information 1. [facility] - Primary Care Services. Why: for symptom reheck [address] [address] 2. [facility] Emergency Department. Specialty: Emergency Medicine Why: If symptoms worsen [address] [place] [address] Contact information for after-discharge care Follow-up information has not been specified. History: Chief Complaint: Abscess HPI: The history was obtained from the patient. She is a 34 y.o. female who presents with a chief complaint of Abscess. This is 34-year-old female comes emergency for evaluation of abscess. Patient reports 2 days ago she noticed redness, warmth, swelling of the left breast surrounding her area [place]. Patient reports associated drainage. Denies any fever, chills, nausea or vomiting. She has had similar abscess before about 2 years ago, was treated with I&D and antibiotic. Denies any recurrence of abscess or cellulitis since then. She reports that the pain is worse with palpation. Denies any drainage. Patient reports surrounding redness has gotten worse therefore she came to the emergency room. Denies any relieving factors or prior intervention. Denies any fever, chills, nausea or vomiting. Patient is not immunocompromised or diabetic. History provided by: Patient integrated program teacher used: No Abscess Associated symptoms: no fever, no nausea and no vomiting PMHx: Past Medical History: Diagnosis Date Pancreatitis PMSx: History reviewed. No pertinent surgical history. FAM. Hx: History reviewed. No pertinent family history. SOC. Hx: Social History Socioeconomic History Marital status: Single Spouse name: Not on file Number of children: Not on file Years of education: Not on file Highest education level: Not on file Occupational History Not on file Social Needs Financial resource strain: Not on file Food insecurity Worry: Not on file Inability: Not on file Transportation needs Medical: Not on file Non-medical: Not on file Tobacco Use Smoking status: Current Every Day Smoker Packs/day: 1.00 Types: Cigarettes Smokeless tobacco: Never Used Substance and Sexual Activity Alcohol use: Yes Comment: socially Drug use: Yes Types: Marijuana Sexual activity: Not on file Lifestyle Physical activity Days per week: Not on file Minutes per session: Not on file Stress: Not on file Relationships Social connections Talks on phone: Not on file Gets together: Not on file Attends restorationist service: Not on file Active member of club or organization: Not on file Attends meetings of clubs or organizations: Not on file Relationship status: Not on file Other Topics Concern Not on file Social History Narrative Not on file MEDs: Previous Medications Medication Sig ondansetron (Zofran) 4 MG tablet Take 1 (one) tablet (4 mg total) by mouth every 8 (eight) hours as needed for nausea . ranitidine (ZANTAC) 150 MG capsule Take 1 (one) capsule (150 mg total) by mouth 2 (two) times a day for 10 days . ALL: Allergies Allergen Reactions Penicillins Rash ROS: Review of Systems Constitutional: Negative for chills and fever. Respiratory: Negative for shortness of breath. Cardiovascular: Negative for chest pain. Gastrointestinal: Negative for abdominal pain, nausea and vomiting. Skin: Positive for color change. All other systems reviewed and are negative. Positives and pertinent negatives as per HPI. All other systems were reviewed and are negative. Physical Exam: Patient Vitals for the past 24 hrs: BP Temp Temp src Pulse Resp SpO2 Height Weight 10/07/19 1351 110/83 76 16 98 % 10/07/19 1204 97 % 10/07/19 1202 113/69 97.5 F (36.4 C) Other (!) 113 14 10/07/19 1157 5' 4 71.7 kg (158 lb) Physical Exam Vitals signs and nursing note reviewed. Constitutional: General: She is not in acute distress. Appearance: She is well-developed. Cardiovascular: Rate and Rhythm: Normal rate and regular rhythm. Pulmonary: Effort: Pulmonary effort is normal. Breath sounds: Normal breath sounds. Abdominal: General: Bowel sounds are normal. Tenderness: There is no abdominal tenderness. Skin: Neurological: Mental Status: She is alert and oriented to person, place, and time. Psychiatric: Behavior: Behavior normal. Laboratory & Radiological Imaging (if done): Labs Reviewed WOUND AEROBIC CULTURE WOUND ANAEROBIC CULTURE No orders to display Procedures: Incision/Drainage Date/Time: 10/07/2019 1:55 PM Performed by: Maria Elena West CNP Authorized by: Gwendolyn Tee MD Verbal consent: obtained Consent given by: patient Relevant documents: Relevent documents present and verified. Medical history, medications, allergies and physical assessment reviewed/completed Patient identity confirmed: verified patient name and Type: abscess Body area: trunk Location details: left breast Anesthesia: local infiltration Anesthesia: Local Anesthetic: lidocaine 1% without epinephrine Anesthetic total: 8 mL Skin preparation: Betadine Scalpel size: 11 Incision depth: dermal Complexity: simple Drainage: purulent Drainage amount: copious Wound treatment: wound left open Packing material: 1/ in iodoform gauze Patient tolerance: Patient tolerated the procedure well with no immediate complications Note: To expedite correspondence this note was generated by [employer] voice recognition software. Some grammatical or spelling errors may occur using the system. ARI López, ENP-C ED Nurse Practitioner [facility] Emergency Department (Please note that portions of this note have been completed with a voice recognition software. Efforts were made to correct any errors, but occasionally words are mis-transcribed.) Maria Elena West CNP 10/07/19 1439 Patient states, I had one here before 2 or 3 years ago. Patient states, I have an abscess on my boob. documented in this encounter [facility] ED Physician Note: NAME: Shannan Carter 34 y.o. CSN: [id number] PCP: Physician No ED Course / Medical Decision Making: MDM Patient was seen here in the ED 2 days ago for drainage of a left breast abscess, returns today for packing change. She reports the involved area appears to be improving, decreased redness and swelling. Involved area does not appear indurated or fluctuant, patient not febrile or toxic appearing. Packing change performed. Patient instructed to continue Bactrim and Keflex as prescribed. Instructed return to ED for increased area of redness or swelling, if she starts running fevers, or if there are other increased symptoms. Patient needs to have the infection checked and the packing changed in another 2 days. She does not currently have a primary care physician, she may need to return to the ED to do this. Clinical Impression: 1. Encounter for recheck of abscess following incision and drainage History: Chief Complaint: Abscess HPI: The history was obtained from the patient. She is a 34 y.o. female who presents with a chief complaint of Abscess. HPI 34-year-old female who was seen in the ED 2 days ago and underwent incision and drainage of a left breast abscess returns today for packing change. Patient states the involved area is still sore, but she believes the degree of redness and swelling has decreased. She has not had any fevers. She was started on Keflex and Bactrim empirically 2 days ago, she has filled the prescriptions and is taking them as prescribed. Preliminary cultures show gram-positive cocci, not further identified PMHx: Past Medical History: Diagnosis Date Pancreatitis PMSx: History reviewed. No pertinent surgical history. FAM. Hx: History reviewed. No pertinent family history. SOC. Hx: Social History Socioeconomic History Marital status: Single Spouse name: Not on file Number of children: Not on file Years of education: Not on file Highest education level: Not on file Occupational History Not on file Social Needs Financial resource strain: Not on file Food insecurity Worry: Not on file Inability: Not on file Transportation needs Medical: Not on file Non-medical: Not on file Tobacco Use Smoking status: Current Every Day Smoker Packs/day: 1.00 Types: Cigarettes Smokeless tobacco: Never Used Substance and Sexual Activity Alcohol use: Yes Comment: socially Drug use: Yes Types: Marijuana Sexual activity: Not on file Lifestyle Physical activity Days per week: Not on file Minutes per session: Not on file Stress: Not on file Relationships Social connections Talks on phone: Not on file Gets together: Not on file Attends restorationist service: Not on file Active member of club or organization: Not on file Attends meetings of clubs or organizations: Not on file Relationship status: Not on file Other Topics Concern Not on file Social History Narrative Not on file MEDs: Previous Medications Medication Sig cephALEXin (KEFLEX) 500 MG capsule Take 1 (one) capsule (500 mg total) by mouth 4 (four) times a day for 10 days . ibuprofen (ADVIL,MOTRIN) 600 MG tablet Take 1 (one) tablet (600 mg total) by mouth every 8 (eight) hours as needed for pain Take with food . ondansetron (Zofran) 4 MG tablet Take 1 (one) tablet (4 mg total) by mouth every 8 (eight) hours as needed for nausea . ranitidine (ZANTAC) 150 MG capsule Take 1 (one) capsule (150 mg total) by mouth 2 (two) times a day for 10 days . sulfamethoxazole-trimethoprim (BACTRIM DS,SEPTRA DS) 800-160 mg per tablet Take 1 (one) tablet by mouth 2 (two) times a day for 10 days . ALL: Allergies Allergen Reactions Penicillins Rash ROS: Review of Systems Constitutional: Negative for chills, diaphoresis and fever. Respiratory: Negative for shortness of breath. Cardiovascular: Negative for chest pain. Gastrointestinal: Negative for nausea and vomiting. All other systems reviewed and are negative. Positives and pertinent negatives as per HPI. All other systems were reviewed and are negative. Physical Exam: Patient Vitals for the past 24 hrs: BP Temp Temp src Pulse Resp SpO2 Height Weight 10/09/19 0838 112/75 98.1 F (36.7 C) Temporal 89 16 97 % 5' 4 71.7 kg (158 lb) Physical Exam Vitals signs and nursing note reviewed. Constitutional: Appearance: Normal appearance. She is not toxic-appearing or diaphoretic. Cardiovascular: Rate and Rhythm: Normal rate and regular rhythm. Pulmonary: Effort: Pulmonary effort is normal. Breath sounds: Normal breath sounds. Skin: General: Skin is warm and dry. Capillary Refill: Capillary refill takes less than 2 seconds. Comments: There is an incision and drainage site to the left breast near the areola, with packing protruding. There is approximately 8 cm diameter area of faint erythema. Area is not indurated or fluctuant. No axillary adenopathy. Neurological: General: No focal deficit present. Mental Status: She is alert and oriented to person, place, and time. Laboratory & Radiological Imaging (if done): Labs Reviewed - No data to display No orders to display Procedures: Procedures Disposition: Patient is being discharged to home Ollie Feng (Please note that portions of this note have been completed with a voice recognition software. Efforts were made to correct any errors, but occasionally words are mis-transcribed.) Ollie Feng MD 10/09/19 0911 Provided warm blanket to patient. Patient states she had an abscess drained a few days ago and needs the packing changed. documented in this encounter Left breast dressed with ABD pad and 2x2 per Mare CARDENAS. Drainage from breat noted think and pus-like [facility] ED Physician Note: NAME: Shannan Carter 34 y.o. CSN: [id number] PCP: Physician No ED Course / Medical Decision Making: In brief, patient presented for wound check and packing removal for abscess of the left breast. About 4 inches of packing was removed from the left breast without difficulty. No significant surrounding erythema, still some mild purulent drainage noted patient is to continue her antibiotics until gone and warm compresses. 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 Recommend follow-up with [facility] in a week for recheck. Clinical Impression: 1. Wound check, abscess 2. Dressing change Disposition: Patient is being discharged to home History: Chief Complaint: Wound Check HPI: She is a 34 y.o. female who presents with a chief complaint of Wound Check. HPI 34-year-old female presents to the ED today for wound check. Patient was seen originally on 10/07/2019 for abscess of the left breast. She had a incision and drainage that time and packing placed. She is here today for wound check and packing removal. She is also requesting work note. Still notes some mild discharge but denies any fevers or chills. PMHx: Past Medical History: Diagnosis Date Pancreatitis PMSx: History reviewed. No pertinent surgical history. FAM. Hx: History reviewed. No pertinent family history. SOC. Hx: Social History Socioeconomic History Marital status: Single Spouse name: Not on file Number of children: Not on file Years of education: Not on file Highest education level: Not on file Occupational History Not on file Social Needs Financial resource strain: Not on file Food insecurity Worry: Not on file Inability: Not on file Transportation needs Medical: Not on file Non-medical: Not on file Tobacco Use Smoking status: Current Every Day Smoker Packs/day: 1.00 Types: Cigarettes Smokeless tobacco: Never Used Substance and Sexual Activity Alcohol use: Yes Comment: socially Drug use: Yes Types: Marijuana Sexual activity: Not on file Lifestyle Physical activity Days per week: Not on file Minutes per session: Not on file Stress: Not on file Relationships Social connections Talks on phone: Not on file Gets together: Not on file Attends restorationist service: Not on file Active member of club or organization: Not on file Attends meetings of clubs or organizations: Not on file Relationship status: Not on file Other Topics Concern Not on file Social History Narrative Not on file MEDs: Previous Medications Medication Sig cephALEXin (KEFLEX) 500 MG capsule Take 1 (one) capsule (500 mg total) by mouth 4 (four) times a day for 10 days . ibuprofen (ADVIL,MOTRIN) 600 MG tablet Take 1 (one) tablet (600 mg total) by mouth every 8 (eight) hours as needed for pain Take with food . ondansetron (Zofran) 4 MG tablet Take 1 (one) tablet (4 mg total) by mouth every 8 (eight) hours as needed for nausea . ranitidine (ZANTAC) 150 MG capsule Take 1 (one) capsule (150 mg total) by mouth 2 (two) times a day for 10 days . sulfamethoxazole-trimethoprim (BACTRIM DS,SEPTRA DS) 800-160 mg per tablet Take 1 (one) tablet by mouth 2 (two) times a day for 10 days . ALL: Allergies Allergen Reactions Penicillins Rash ROS: Review of Systems Constitutional: Negative for activity change, appetite change, chills and fever. HENT: Negative for congestion and ear pain. Eyes: Negative for pain, discharge and redness. Respiratory: Negative for chest tightness, shortness of breath and wheezing. Cardiovascular: Negative for chest pain, palpitations and leg swelling. Gastrointestinal: Negative for abdominal pain. Endocrine: Negative for cold intolerance and heat intolerance. Genitourinary: Negative for dysuria and flank pain. Musculoskeletal: Negative for arthralgias. Skin: Positive for wound. Negative for color change and rash. Neurological: Negative for dizziness, weakness, numbness and headaches. Hematological: Negative for adenopathy. All other systems reviewed and are negative. Positives and pertinent negatives as per HPI. All other systems were reviewed and are negative. Physical Exam: Patient Vitals for the past 24 hrs: BP Temp Temp src Pulse Resp SpO2 Height Weight 10/11/19 1450 126/70 97.5 F (36.4 C) Other 91 16 96 % 5' 4 71.7 kg (158 lb) Physical Exam Vitals signs and nursing note reviewed. Constitutional: General: She is not in acute distress. Appearance: Normal appearance. She is well-developed. She is not toxic- appearing. HENT: Head: Normocephalic and atraumatic. Eyes: General: Lids are normal. Conjunctiva/sclera: Conjunctivae normal. Pupils: Pupils are equal, round, and reactive to light. Cardiovascular: Rate and Rhythm: Normal rate and regular rhythm. Pulses: Normal pulses. Heart sounds: Heart sounds not distant. Pulmonary: Effort: Pulmonary effort is normal. No accessory muscle usage or respiratory distress. Breath sounds: Normal breath sounds. Chest: Breasts: Left: Tenderness present. Abdominal: General: Bowel sounds are normal. Palpations: Abdomen is soft. Tenderness: There is no abdominal tenderness. Skin: General: Skin is warm and dry. Findings: No rash. Neurological: Mental Status: She is alert and oriented to person, place, and time. Laboratory & Radiological Imaging (if done): Labs Reviewed - No data to display No orders to display Procedures: Procedures The patient has been informed that they may have pre-hypertension or hypertension based on a blood pressure reading in the Emergency Department. I recommend that the patient call the primary care provider listed on their discharge instructions or a physician of their choice as soon as possible to arrange follow-up in the next 4 weeks for further evaluation of possible pre-hypertension or hypertension. . This chart was documented with [employer] system. There may be spelling errors as a result. Colin Loaiza PA-C [facility] Emergency Department (Please note that portions of this note have been completed with a voice recognition software. Efforts were made to correct any errors, but occasionally words are mis-transcribed.) Colin Loaiza PA-C 10/11/19 1510 Pt into ER states I need to get the packing taken out of my boob. I don't have a family doctor so I came here. documented in this encounter [facility] ED Physician Note: NAME: Shannan Carter 35 y.o. CSN: [id number] PCP: Physician No Clinical Impression: 1. COVID-19 virus infection Disposition: Patient is being discharged to home Follow-up Information 1. [facility]. Why: Recheck of todays complaint [address] [facility] [address] [phone] 2. [facility] Emergency Department. Specialty: Emergency Medicine Why: If symptoms worsen [address] [facility] [address] Contact information for after-discharge care Follow-up information has not been specified. History: Chief Complaint: Cough and Fatigue HPI: The history was obtained from the patient. She is a 35 y.o. female who presents with a chief complaint of Cough and Fatigue. HPI patient presents to the emergency department stating her brother who she lives with tested positive for Covid 3 days ago. She reports for approximately past 3 to 4 days she has had body aches, chills, headache, cough. Nothing makes her symptoms better nothing makes her symptoms worse. She has not seen a PCP for this. She tried Advil earlier today. No vomiting or diarrhea. No difficulty breathing. She denies any other complaints or problems. PMHx: Past Medical History: Diagnosis Date Pancreatitis PMSx: History reviewed. No pertinent surgical history. FAM. Hx: History reviewed. No pertinent family history. SOC. Hx: Social History Socioeconomic History Marital status: Single Spouse name: Not on file Number of children: Not on file Years of education: Not on file Highest education level: Not on file Occupational History Not on file Social Needs Financial resource strain: Not on file Food insecurity Worry: Not on file Inability: Not on file Transportation needs Medical: Not on file Non-medical: Not on file Tobacco Use Smoking status: Current Every Day Smoker Packs/day: 1.00 Types: Cigarettes Smokeless tobacco: Never Used Substance and Sexual Activity Alcohol use: Yes Comment: socially Drug use: Yes Types: Marijuana Sexual activity: Not on file Lifestyle Physical activity Days per week: Not on file Minutes per session: Not on file Stress: Not on file Relationships Social connections Talks on phone: Not on file Gets together: Not on file Attends restorationist service: Not on file Active member of club or organization: Not on file Attends meetings of clubs or organizations: Not on file Relationship status: Not on file Other Topics Concern Not on file Social History Narrative Not on file MEDs: Previous Medications Medication Sig ondansetron (Zofran) 4 MG tablet Take 1 (one) tablet (4 mg total) by mouth every 8 (eight) hours as needed for nausea . ranitidine (ZANTAC) 150 MG capsule Take 1 (one) capsule (150 mg total) by mouth 2 (two) times a day for 10 days . ALL: Allergies Allergen Reactions Penicillins Rash ROS: Review of Systems Constitutional: Positive for chills and fatigue. HENT: Positive for congestion. Eyes: Negative for discharge. Respiratory: Positive for cough. Negative for shortness of breath. Cardiovascular: Negative for chest pain. Gastrointestinal: Negative for abdominal pain, diarrhea, nausea and vomiting. Musculoskeletal: Negative for neck stiffness. Skin: Negative for rash. Neurological: Positive for headaches. All other systems reviewed and are negative. Positives and pertinent negatives as per HPI. All other systems were reviewed and are negative. Physical Exam: Patient Vitals for the past 24 hrs: BP Temp Temp src Pulse Resp SpO2 Height Weight 05/21/20 1813 122/88 97.9 F (36.6 C) Infrared (!) 109 18 97 % 5' 4 79.4 kg (175 lb) Physical Exam Vitals signs and nursing note reviewed. Constitutional: General: She is not in acute distress. Appearance: Normal appearance. She is not ill-appearing, toxic-appearing or diaphoretic. HENT: Head: Normocephalic and atraumatic. Right Ear: External ear normal. Left Ear: External ear normal. Nose: Congestion present. Eyes: Conjunctiva/sclera: Conjunctivae normal. Pupils: Pupils are equal, round, and reactive to light. Neck: Musculoskeletal: Normal range of motion and neck supple. No neck rigidity. Cardiovascular: Rate and Rhythm: Normal rate and regular rhythm. Pulses: Normal pulses. Heart sounds: Normal heart sounds. Pulmonary: Effort: Pulmonary effort is normal. No respiratory distress. Breath sounds: Normal breath sounds. Abdominal: General: Bowel sounds are normal. Palpations: Abdomen is soft. Tenderness: There is no abdominal tenderness. Musculoskeletal: Normal range of motion. Right lower leg: No edema. Left lower leg: No edema. Skin: General: Skin is warm and dry. Capillary Refill: Capillary refill takes less than 2 seconds. Findings: No rash. Neurological: General: No focal deficit present. Mental Status: She is alert and oriented to person, place, and time. Cranial Nerves: No cranial nerve deficit. Psychiatric: Mood and Affect: Mood normal. Behavior: Behavior normal. Laboratory & Radiological Imaging (if done): Labs Reviewed COVID-19/INFLUENZA A,B MOLECULAR - Abnormal; Notable for the following components: Result Value SARS-CoV-2 Detected (*) All other components within normal limits Narrative: This test was performed under the FDA's Emergency Use Authorization (EUA). Testing was performed using the Eleni feliciano SARS-CoV-2 & Influenza A/B Nucleic Acid Test on the feliciano Y[employer] System. This test has not been approved for use in asymptomatic patients and its performance in this patient population has not been evaluated. Negative results do not rule out the presence of SARS-CoV-2, influenza A, and/or influenza B. Fact sheets for the EUA can be found at the following links: For Healthcare Providers: https://www.fda.gov/media/804285/download For Patients: https://www.fda.gov/media/849366/download No orders to display Procedures: Procedures ED Course/ Medical Decision Making: ED Course: Patient was seen and evaluated for the complaint. COVID-19 test was obtained. Discussed rest, fluids, quarantining, staying home away from others, follow-up with PCP for recheck, return for problems or concerns. Discussed return for difficulty breathing, uncontrolled fevers, or any other problems. Medical Decision Making: After my independent evaluation, she appears to covid. She reports her brother who she resides with recently tested positive for Covid and now she has symptoms consistent with that as well. At this time she is not requiring supplemental oxygen and there is no respiratory distress. At this time she does not require hospitalization.. At this time, there is a no evidence of pneumonia, hypoxia, OM, bacterial sinus infection, bacterial bronchitis, bacteremia, or sepsis. In my medical opinion, I consider Shannan to be low risk for any serious/life-threatening entity, and deem her stable for discharge. This is based on the information that was available to me at the time of this ED visit. I recommended follow up in a couple days with his PCP. As I discussed, she is to return to our ER immediately if there is any worsening of her condition, such as increased cough, shortness of breath, persistent fevers, repeated vomiting, dehydration, or if her condition worsens at all. OARS report reviewed on this patient The patient has been informed that they may have pre-hypertension or hypertension based on a blood pressure reading in the Emergency Department. I recommend that the patient call the primary care provider listed on their discharge instructions or a physician of their choice as soon as possible to arrange follow-up in the next 4 weeks for further evaluation of possible pre-hypertension or hypertension. . Ajay Duran PA-C ED Physician Housekeeper Caregiver [facility] Emergency Department (Please note that portions of this note have been completed with a voice recognition software. Efforts were made to correct any errors, but occasionally words are mis-transcribed.) Ajay Duran PA-C 05/21/201903 Pt presents to ED with c/o cough and fatigue that started Wednesday. Pt states that she lives with someone who is positive for covid documented in this encounter [facility] ED Physician Note: NAME: Shannan Carter 35 y.o. CSN: [id number] PCP: Physician No Clinical Impression: 1. COVID-19 virus infection 2. Nonintractable headache, unspecified chronicity pattern, unspecified headache type 3. Myalgia 4. Fatigue, unspecified type ED Disposition ED Disposition Condition Comment Discharge Stable Shannan Carter discharged to home/self care in stable condition. Follow-up Information 1. Hesham Barnes CNP. Specialties: Internal Medicine, Nurse Practitioner Why: as scheduled per paperwork printed (June 12 at 2 pm) [address] [facility] [address] Contact information for after-discharge care Follow-up information has not been specified. ED Course / Medical Decision Making: MDM Number of Diagnoses or Management Options I reviewed prior epic records, I discussed with patient regarding work-up options in the ER including labs and imaging and medications, she did not want any work-up to be completed at this time, was agreeable to Toradol IM, I spoke with social and political studies professor who arranged for an outpatient appointment with her urgently, neuro exam is nonfocal, she is making informed decision. I discussed with the patient supportive care, signs to return to ED, infectious/neuro warning signs, follow up with pcp; questions answered; patient understands and agrees with plan; . . If patient is currently a smoker or uses a tobacco product, I did primary substance abuse counselor them on benefits and resources of smoking/tobacco use cessation. History: Chief Complaint: covid+, Headache, and Generalized Body Aches HPI: The history was obtained from the patient. She is a 35 y.o. female who presents with a chief complaint of covid+, Headache, and Generalized Body Aches. HPI patient states that she was diagnosed with Covid and has had persistent symptoms, she was cleared to go back to work however states that she feels too fatigued to do so, she complains of 6 out of 10, constant throbbing, myalgias, frontal headache, fatigue, nausea without vomiting, cough without hemoptysis, overall persistent symptoms since she was diagnosed, and is taking ibuprofen and acetaminophen per package instructions with intermittent improvement, she denies fall or injury, visual or auditory changes, slurred speech, acute focal numbness or weakness PMHx: Past Medical History: Diagnosis Date Pancreatitis PMSx: History reviewed. No pertinent surgical history. FAM. Hx: History reviewed. No pertinent family history. SOC. Hx: Social History Socioeconomic History Marital status: Single Spouse name: Not on file Number of children: Not on file Years of education: Not on file Highest education level: Not on file Occupational History Not on file Social Needs Financial resource strain: Not on file Food insecurity Worry: Not on file Inability: Not on file Transportation needs Medical: Not on file Non-medical: Not on file Tobacco Use Smoking status: Current Every Day Smoker Packs/day: 1.00 Types: Cigarettes Smokeless tobacco: Never Used Substance and Sexual Activity Alcohol use: Yes Comment: socially Drug use: Yes Types: Marijuana Sexual activity: Not on file Lifestyle Physical activity Days per week: Not on file Minutes per session: Not on file Stress: Not on file Relationships Social connections Talks on phone: Not on file Gets together: Not on file Attends restorationist service: Not on file Active member of club or organization: Not on file Attends meetings of clubs or organizations: Not on file Relationship status: Not on file Other Topics Concern Not on file Social History Narrative Not on file MEDs: Previous Medications Medication Sig ondansetron (Zofran) 4 MG tablet Take 1 (one) tablet (4 mg total) by mouth every 8 (eight) hours as needed for nausea . ranitidine (ZANTAC) 150 MG capsule Take 1 (one) capsule (150 mg total) by mouth 2 (two) times a day for 10 days . ALL: Allergies Allergen Reactions Penicillins Rash ROS: Review of Systems Constitutional: Positive for fatigue. Fever: none documented for sevral days. HENT: Positive for congestion. Eyes: Negative for visual disturbance. Respiratory: Positive for cough. Cardiovascular: Negative for chest pain. Gastrointestinal: Negative for abdominal pain and vomiting. Genitourinary: Negative for dysuria. Musculoskeletal: Negative for back pain and gait problem. Skin: Negative for rash and wound. Neurological: Positive for headaches. Negative for seizures, syncope, facial asymmetry, speech difficulty, weakness and numbness. Hematological: Does not bruise/bleed easily. Psychiatric/Behavioral: Negative for confusion. Physical Exam: Patient Vitals for the past 24 hrs: BP Temp Temp src Pulse Resp SpO2 Height Weight 06/05/20 1247 114/79 98.8 F (37.1 C) Infrared (!) 118 14 95 % 5' 4 79.4 kg (175 lb) Physical Exam Vitals signs and nursing note reviewed. Constitutional: General: She is not in acute distress. Appearance: She is not diaphoretic. HENT: Head: Normocephalic. Comments: No temporal artery or sinus pain to palpation bilaterally Right Ear: Tympanic membrane normal. Left Ear: Tympanic membrane normal. Nose: Congestion (mild) present. Mouth/Throat: Mouth: Mucous membranes are moist. Eyes: General: No scleral icterus. Extraocular Movements: Extraocular movements intact. Pupils: Pupils are equal, round, and reactive to light. Neck: Musculoskeletal: Neck supple. Cardiovascular: Rate and Rhythm: Normal rate and regular rhythm. Pulses: Normal pulses. Pulmonary: Effort: Pulmonary effort is normal. No respiratory distress. Breath sounds: No wheezing, rhonchi or rales. Abdominal: General: Bowel sounds are normal. There is no distension. Palpations: Abdomen is soft. Tenderness: There is no abdominal tenderness. Musculoskeletal: Comments: No pitting edema or calf pain to palpation bilateral lower extremities. No neck or back pain with palpation. Skin: General: Skin is warm and dry. Capillary Refill: Capillary refill takes less than 2 seconds. Coloration: Skin is not jaundiced. Neurological: Mental Status: She is alert. Comments: Speech clear, face symmetric, PERRL, EOMI, no nystagmus noted, strength 5/5x4, sensation and coordination are grossly intact as tested Psychiatric: Comments: Cooperative, good eye contact Laboratory & Radiological Imaging (if done): Labs Reviewed - No data to display No orders to display Procedures: Procedures Radha Li DO ED Physician [facility] Emergency Department Radha Li DO 06/05/20 1611 Patient sleeping and reluctant to leave. Discharge instructions reviewed with patient and patient verbalized understanding of telemedicine visit. ED SW notified of patient's need for PCP appointment. Scheduled with Dr. Wills's office. Bed: 01 Expected date: Expected time: Means of arrival: Comments: Triage pt Pt states, I tested positive about two weeks ago and im still feeling horrible. Like my body hurts and I have no motivation and I have a headache. documented in this encounter ED Attestation Note - Boone Resendiz MD - 08/29/2019 3:44 PM ESTED Attestation Note - Gwendolyn Tee MD - 10/07/2019 2:20 PM EDT Miscellaneous Notes (unrecog nized section and content) ED Attestation: I have reviewed the Advanced Practice Provider's (EARNEST's) documention. In addition, I have personally introduced myself to the patient, and have taken her history and performed an examination. I agree with the physical findings, management, clinical impression and disposition. In brief, she is a 34 y.o. female who presents with a chief complaint of Abdominal Pain. After my evaluation, I noticed patient with nausea and vomiting Boone Resendiz MD ED Attending Physician [facility] Emergency Department documented in this encounter ED Attestation: I was personally available for consult in the ED for this patient, if the Advanced Practice Provider (EARNEST) needed any assistance. The EARNEST evaluated the patient independently for a complaint of Abscess, and completed their own examination, documentation, and discharge. documented in this encounter ED Attestation: I was personally available for consult in the ED for this patient, if the Advanced Practice Provider (EARNEST) needed any assistance. The EARNEST evaluated the patient independently for a complaint of Cough and Fatigue, and completed their own examination, documentation, and discharge. Onofre Rowell MD Emergency Department Physician documented in this encounter Patient Care team informatio n (unrecognized section and content) Personnel Name: Ashlyn Potter DO Address: [facility], [address] Personnel Name: Ashlyn Potter DO Address: Address[facility], [address] Personnel Name: Ashlyn Potter DO Address: Address: [facility], [address] FOR RECORDS PERTAINING TO PATIENTS WHO ARE OR HAVE BEEN ENROLLED IN A CHEMICAL DEPENDENCY/SUBSTANCEABUSE PROGRAM, SOME INFORMATION MAY BE OMITTED. This clinical summary was aggregated from multiple sources. Caution should be exercised in using it in the provision of clinical care. This summary normalizes information from multiple sources, and as a consequence, information in this document may materially change the coding, format and clinical context of patient data. In addition, data may be omitted in some cases. CLINICAL DECISIONS SHOULD BE BASED ON THE PRIMARY CLINICAL RECORDS. [facility] [employer] [facility]. provides no warranty or guarantee of the accuracy or completeness of information in this document.
--- OUTSIDE RECORDS SUMMARY | 2023-06-16 02:12 | XMS_ITS | CCD ---
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 Comment on above: plastic tape (1 source) Adhesive Tape; Translations: [Tape] Propensity to adverse reactions (disorder) [facility] Repository Medications Current Medications Medication Drug [...] Facil ity Lab Reportson 06-07-2023 Lab Reports [id number]#1.00T IFF Normal [facility] Lab Reportson 06-05-2023 Lab Reports [id number]#1.00T IFF Normal [facility] Lab Reportson 06-04-2023 Lab Reports [id number]#1.00T IFF Normal [facility] Lab Reports [id number]#1.00T IFF Normal [facility] Ambulatory Visit Summaryon 1 07-18-2022 Ambulatory Visit [...] for choosing us for your care. Normal [facility] General Surgery Office/Clini c Noteon 05-18-2023 General Surgery Office/Clinic Note Chief Complaint post operative follow up HPI Staff 18 day post operative follow up post I/D left breast abscess. Completing daily dressing changes at [facility]. Reports moderate intermittent discomfort, taking Ibuprofen 800mg [...] inactivated - Not Given Patient Refuses Normal [facility] Comment on above: Result Comment: Elec tronically [...] dressing changes daily at infusion center at [facility]; completed course of antibiotics; taking ibuprofen as [...] inactivated - Not Given Patient Refuses Normal [facility] Comment on above: Result Comment: Elec tronically [...] you for choosing us for your care. [facility] Lab Reportson 05-11-2023 Lab Reports [id number]#1.00TI FF [facility] Pathology Noteon 05-10-2023 Pathology Note [id number]#1. 00TIFF [facility] Consultation Noteon 05-05-20 Consultation Note [id number]#1.00TIFF [facility] Consultation Note [id number]#1.00TIFF [facility] Operative Reporton Operative Report [id number]#1.00TIFF [facility] Consultation Noteon 05-04-20 Consultation Note [id number]#1.00TIFF [facility] ED Note-Physicianon 05-04-20 ED Note-Physician [id number] #1.00TIFF [facility] ED Note-Physician [id number] #1.00TIFF [facility] AMMONIAon 10-12-2021 Ammonia (P) [Moles/Vol] 21 umol/L Normal 11-[address] [facility] Comment on above: Performed By: #### P TT, PT #### [facility] [address] [place] [address] Dr. Celi Guerin AMYLASEon 10-12-2021 Amylase [Catalytic activity/Vol] 535 U/L Critically hig h 25-115 [facility] Comment on above: Result Comment: repe ated Performed By: #### C MP, LIPA, ASHLYN #### [facility] [address] [place] [address] Dr. Celi Guerin CBC AUTO DIFFon 10-12-2021 BASO # 0.0 103/ul Normal 0.0-0.1 [facility] Comment on above: Performed By: #### P TT, PT #### [facility] [address] [place] [address] Dr. Celi Guerin Basophils/100 WBC (Bld) 0.1 % Critically low 0.2-2.0 [facility] Comment on above: Performed By: #### P TT, PT #### [facility] [address] [place] [address] Dr. Celi Guerin EO # 0.0 103/ul Normal 0.0-0.[address] [facility] Comment on above: Performed By: #### P TT, PT #### [facility] [address] [place] [address] Dr. Celi Guerin Eosinophils/100 WBC (Bld) 0.4 % Critically low 0.9-7. 0 [facility] Comment on above: Performed By: #### P TT, PT #### [facility] [address] [place] [address] Dr. Celi Guerin Erythrocyte distribution wid th (RBC) [Ratio] 18.6 % Critically high 11.0-15.0 [facility] Comment on above: Performed By: #### P TT, PT #### [facility] [address] [place] [address] Dr. Celi Guerin Hematocrit (Bld) [Volume fraction] 29.3 % Critically low 36.0-48.0 [facility] pital Comment on above: Performed By: #### P TT, PT #### [facility] [address] [place] [address] Dr. Celi Guerin Hemoglobin (Bld) [Mass/Vol] 9.4 g/dL Critically low 12.0 -16.0 [facility] Comment on above: Performed By: #### P TT, PT #### [facility] [address] [place] [address] Dr. Celi Guerin IG # 0.04 10e3/ul Critically high 0.00-0.03 [facility] Comment on above: Performed By: #### P TT, PT #### [facility] [address] [place] [address] Dr. Celi Guerin IG % 0.5 % Normal 0.0-0.5 [facility] Comment on above: Performed By: #### P TT, PT #### [facility] [address] [place] [address] Dr. Celi Guerin LYMPH # 1.1 103/ul Critically low 1.2-3.[address] [facility] Comment on above: Performed By: #### P TT, PT #### [facility] [address] [place] [address] Dr. Celi Guerin Lymphocytes/100 WBC (Bld) 14.2 % Critically low 20.5-6 0.0 [facility] Comment on above: Performed By: #### P TT, PT #### [facility] [address] [place] [address] Dr. Celi Guerin MANUAL DIFF REQ NO Normal [facility] Comment on above: Performed By: #### P TT, PT #### [facility] [address] [place] [address] Dr. Celi Guerin MCH (RBC) [Entitic mass] 25.8 pg Critically low 26.7-34 .0 [facility] Comment on above: Performed By: #### P TT, PT #### [facility] [address] [place] [address] Dr. Celi Guerin MCHC (RBC) [Mass/Vol] 32.1 g/dL Normal 29.9-35.2 [facility] Comment on above: Performed By: #### P TT, PT #### [facility] [address] [place] [address] Dr. Celi Guerin MCV (RBC) [Entitic vol] 80.5 fL Critically low 81.0-99. 0 [facility] Comment on above: Performed By: #### P TT, PT #### [facility] [address] [place] [address] Dr. Celi Guerin MONO # 0.7 103/ul Normal 0.3-0.8 [facility] Comment on above: Performed By: #### P TT, PT #### [facility] [address] [place] [address] Dr. Celi Guerin Monocytes/100 WBC (Bld) 8.4 % Normal 1.7-12.0 [facility] Comment on above: Performed By: #### P TT, PT #### [facility] [address] [place] [address] Dr. Celi Guerin NEUT # 5.9 103/ul Normal 1.4-6.5 [facility] Comment on above: Performed By: #### P TT, PT #### [facility] [address] [place] [address] Dr. Celi Guerin Neutrophils/100 WBC (Bld) 76.4 % Critically high 43.0- 75.0 [facility] Comment on above: Performed By: #### P TT, PT #### [facility] [address] [place] [address] Dr. Celi Guerin PLT 63 103/ul Critically low 150-[address] [facility] Comment on above: Performed By: #### P TT, PT #### [facility] [address] [address] [address] Celi Guerin RBC 3.64 106/ul Critically low 4.20-5.40 [facility] Comment on above: Performed By: #### P TT, PT #### [facility] [address] [place] [address] Dr. Celi Guerin WBC 7.8 103/ul Normal 4.0-11.0 [facility] Comment on above: Performed By: #### P TT, PT #### [facility] [address] [place] [address] Dr. Celi Guerin LIPASEon 10-12-2021 Lipase [Catalytic activity/Vol] U/L Critically high 23.0-300.0 [facility] Comment on above: Result Comment: repe ated Performed By: #### E YURI ESTRELLARO #### [facility] [address] [place] [address] Dr. Celi Guerin PROF 14(COMP METB)on 022 Albumin [Mass/Vol] 2.9 g/dL Critically low 3.4-5.0 [facility] Comment on above: Performed By: #### C MP LIPA, ASHLYN #### [facility] [address] [place] [address] Dr. Celi Guerin Albumin/Globulin [Mass ratio] 1.0 {ratio} Normal [facility] Comment on above: Performed By: #### C MP LIPA, ASHLYN #### [facility] [address] [place] [address] Dr. Celi Guerin ALP [Catalytic activity/Vol] 88 U/L Normal 46-116 [facility] Comment on above: Performed By: #### C MP, LIPA, ASHLYN #### [facility] [address] [place] [address] Dr. Celi Guerin ALT [Catalytic activity/Vol] 34 U/L Normal 14-59 [facility] Comment on above: Performed By: #### C MP LIPA, ASHLYN #### [facility] [address] [place] [address] Dr. Celi Guerin Anion gap [Moles/Vol] 12.9 mmol/L Normal [facility] Comment on above: Performed By: #### C MP, LIPA, ASHLYN #### [facility] [address] [place] [address] Dr. Celi Guerin AST [Catalytic activity/Vol] 70 U/L Critically high 15 -37 [facility] Comment on above: Performed By: #### C EDE MONCADA, ASHLYN #### [facility] [address] [place] [address] Dr. Celi Guerin Bilirubin [Mass/Vol] 1.2 mg/dL Normal 0.2-1.3 [facility] Comment on above: Performed By: #### C ANTWAN LIPA, ASHLYN #### [facility] [address] [place] [address] Dr. Celi Guerin Calcium [Mass/Vol] 7.4 mg/dL Critically low 8.5-10.1 [facility] Comment on above: Performed By: #### C ANTWAN LIPA, ASHLNY #### [facility] [address] [place] [address] Dr. Celi Guerin Chloride [Moles/Vol] 98 mmol/L Normal 98-107 [facility] Comment on above: Performed By: #### C ANTWAN LIPA, ASHLYN #### [facility] [address] [place] [address] Dr. Celi Guerin CO2 [Moles/Vol] 23.9 mmol/L Normal 22.0-30.0 [facility] Comment on above: Performed By: #### C ANTWAN LIPA, ASHLYN #### [facility] [address] [place] [address] Dr. Celi Guerin Creatinine [Mass/Vol] 0.41 mg/dL Critically low 0.52-1.04 [facility] Comment on above: Performed By: #### C ANTWAN LIPA, ASHLYN #### [facility] [address] [place] [address] Dr. Celi Guerin EGFR-AF UZBEK >60 Normal >=60 [facility] Comment on above: Performed By: #### C ANTWAN LIPA, ASHLYN #### [facility] [address] [place] [address] Dr. Celi Guerin EGFR-NON AF UZBEK >60 Normal >=60 [facility] Comment on above: Performed By: #### C ANTWAN LIPA, ASHLYN #### [facility] [address] [place] [address] Dr. Celi Guerin Globulin (S) [Mass/Vol] 2.9 g/dL Normal T [facility] Comment on above: Performed By: #### C MP, LIPA, ASHLYN #### [facility] [address] [place] [address] Dr. Celi Guerin Glucose [Mass/Vol] 82 mg/dL Normal 74-106 [facility] Comment on above: Performed By: #### C MP, LIPA, ASHLYN #### [facility] [address] [place] [address] Dr. Celi Guerin Potassium [Moles/Vol] 2.8 mmol/L Critically low 3.4-5.0 [facility] Comment on above: Result Comment: repe ated Performed By: #### C MP LIPA, ASHLYN #### [facility] [address] [place] [address] Dr. Celi Guerin Protein [Mass/Vol] 5.8 g/dL Critically low 6.1-8.2 [facility] Comment on above: Performed By: #### C ANTWAN LIPA, ASHLYN #### [facility] [address] [place] [address] Dr. Celi Guerin Sodium [Moles/Vol] 131 mmol/L Critically low 137-145 [facility] Comment on above: Performed By: #### C ANTWAN LIPA, ASHLYN #### [facility] [address] [place] [address] Dr. Celi Guerin Urea nitrogen [Mass/Vol] 2.0 mg/dL Critically low 7.0-18. 0 [facility] Comment on above: Performed By: #### C MP LIPA, ASHLYN #### [facility] [address] [place] [address] Dr. Celi Guerin Urea nitrogen/Creatinine [Mass ratio] 4.9 mg/mg Normal [facility] Comment on above: Performed By: #### C MP, LIPA, ASHLYN #### [facility] [address] [place] [address] Dr. Celi Guerin AMMONIAon 10-11-2021 Ammonia (P) [Moles/Vol] 23 umol/L Normal 11-[address] [facility] Comment on above: Performed By: #### D RUGRPD #### [facility] [address] [place] [address] Dr. Celi Guerin AMYLASEon 10-11-2021 Amylase [Catalytic activity/Vol] 1078 U/L Critically high 25-115 [facility] Comment on above: Result Comment: repe ated Performed By: #### D RUGRPD #### [facility] [address] [place] [address] Dr. Celi Guerin CBC AUTO DIFFon 10-11-2021 BASO # 0.0 103/ul Normal 0.0-0.1 [facility] Comment on above: Performed By: #### P TT, PT #### [facility] [address] [place] [address] Dr. Celi Guerin Basophils/100 WBC (Bld) 0.1 % Critically low 0.2-2.0 [facility] Comment on above: Performed By: #### P TT, PT #### [facility] [address] [place] [address] Dr. Celi Guerin EO # 0.0 103/ul Normal 0.0-0.7 [facility] Comment on above: Performed By: #### P TT, PT #### [facility] [address] [place] [address] Dr. Celi Guerin Eosinophils/100 WBC (Bld) 0.1 % Critically low 0.9-7. 0 [facility] Comment on above: Performed By: #### P TT, PT #### [facility] [address] [place] [address] Dr. Celi Guerin Erythrocyte distribution wid th (RBC) [Ratio] 18.5 % Critically high 11.0-15.0 [facility] Comment on above: Performed By: #### P TT, PT #### [facility] [address] [place] [address] Dr. Celi Guerin Hematocrit (Bld) [Volume fraction] 33.2 % Critically low 36.0-48.0 [facility] pital Comment on above: Performed By: #### P TT, PT #### [facility] [address] [place] [address] Dr. Celi Guerin Hemoglobin (Bld) [Mass/Vol] 10.5 g/dL Critically low 12.0 -16.0 [facility] Comment on above: Performed By: #### P TT, PT #### [facility] [address] [place] [address] Dr. Celi Guerin IG # 0.03 10e3/ul Normal 0.00-0.03 [facility] Comment on above: Performed By: #### P TT, PT #### [facility] [address] [place] [address] Dr. Celi Guerin IG % 0.4 % Normal 0.0-0.5 [facility] Comment on above: Performed By: #### P TT, PT #### [facility] [address] [place] [address] Dr. Celi Guerin LYMPH # 0.8 103/ul Critically low 1.2-3.[address] [facility] Comment on above: Performed By: #### P TT, PT #### [facility] [address] [place] [address] Dr. Celi Guerin Lymphocytes/100 WBC (Bld) 10.6 % Critically low 20.5-6 0.0 [facility] Comment on above: Performed By: #### P TT, PT #### [facility] [address] [place] [address] Dr. Celi Guerin MANUAL DIFF REQ NO Normal [facility] Comment on above: Performed By: #### P TT, PT #### [facility] [address] [place] [address] Dr. Celi Guerin MCH (RBC) [Entitic mass] 25.9 pg Critically low 26.7-34 .0 [facility] Comment on above: Performed By: #### P TT, PT #### [facility] [address] [place] [address] Dr. Celi Guerin MCHC (RBC) [Mass/Vol] 31.6 g/dL Normal 29.9-35.2 [facility] Comment on above: Performed By: #### P TT, PT #### [facility] [address] [place] [address] Dr. Celi Guerin MCV (RBC) [Entitic vol] 82.0 fL Normal 81.0-99.0 [facility] Comment on above: Performed By: #### P TT, PT #### [facility] [address] [place] [address] Dr. Celi Guerin MONO # 0.4 103/ul Normal 0.3-0.8 [facility] Comment on above: Performed By: #### P TT, PT #### [facility] [address] [place] [address] Dr. Celi Guerin Monocytes/100 WBC (Bld) 5.6 % Normal 1.7-12.0 [facility] Comment on above: Performed By: #### P TT, PT #### [facility] [address] [place] [address] Dr. Celi Guerin NEUT # 6.4 103/ul Normal 1.4-6.5 [facility] Comment on above: Performed By: #### P TT, PT #### [facility] [address] [place] [address] Dr. Celi Guerin Neutrophils/100 WBC (Bld) 83.2 % Critically high 43.0- 75.0 [facility] Comment on above: Performed By: #### P TT, PT #### [facility] [address] [place] [address] Dr. Celi Guerin Platelet mean volume (Bld) [ Entitic vol] 11.9 fL Normal 9.5-13.5 [facility] Comment on above: Performed By: #### P TT, PT #### [facility] [address] [place] [address] Dr. Celi Guerin PLT 59 103/ul Critically low 150-450 [facility] Comment on above: Performed By: #### P TT, PT #### [facility] [address] [place], [place] [address] Dr. Celi Guerin RBC 4.05 106/ul Critically low 4.20-5.40 [facility] Comment on above: Performed By: #### P TT, PT #### [facility] [address] [place], [place] [address] Dr. Celi Guerin WBC 7.7 103/ul Normal 4.0-11.0 [facility]ital Comment on above: Performed By: #### P TT, PT #### [facility] [address] [place], [place] [address] ABD/PELVIS WO CONon [...] RADHA RINALDI Date: 2021-10-11 09:36 Normal [facility] CT HEAD WO CONon 10-11-2021 CT [...] by: OSMIN MICHAEL Date: 2021-10-11 09:38 Normal [facility] LIPASEon 10-11-2021 Lipase [Catalytic activity/Vol] U/L Critically high 23.0-300.0 [facility] Comment on above: Result Comment: repe ated Performed By: #### D RUGRPD #### [facility] [address] [place] [address] Dr. Celi Guerin MAGNESIUMon 10-11-2021 Magnesium [Mass/Vol] 1.7 mg/dL Normal 1.6-2.3 [facility] Comment on above: Performed By: #### P TT, PT #### [facility] [address] [place] [address] Dr. Celi Guerin PHOSPHORUSon 10-11-2021 Phosphate [Mass/Vol] 1.5 mg/dL Critically low 2.5-4.5 [facility] Comment on above: Performed By: #### P TT, PT #### [facility] [address] [place] [address] Dr. Celi Guerin PROF 14(COMP METB)on 022 Albumin [Mass/Vol] 3.0 g/dL Critically low 3.4-5.0 [facility] Comment on above: Performed By: #### P TT, PT #### [facility] [address] [place] [address] Dr. Celi Guerin Albumin/Globulin [Mass ratio] 1.0 {ratio} Normal [facility] Comment on above: Performed By: #### P TT, PT #### [facility] [address] [address] [address] Celi Guerin ALP [Catalytic activity/Vol] 78 U/L Normal 46-116 [facility] Comment on above: Performed By: #### P TT, PT #### [facility] [address] [address] [address] Celi Guerin ALT [Catalytic activity/Vol] 31 U/L Normal 14-59 [facility] Comment on above: Performed By: #### P TT, PT #### [facility] [address] [address] [address] Celi Guerin Anion gap [Moles/Vol] 16.8 mmol/L Normal [facility] Comment on above: Performed By: #### P TT, PT #### [facility] [address] [address] [address] Celi Guerin AST [Catalytic activity/Vol] 48 U/L Critically high 15 -37 [facility] Comment on above: Performed By: #### P TT, PT #### [facility] [address] [address] [address] Celi Guerin Bilirubin [Mass/Vol] 1.1 mg/dL Normal 0.2-1.3 [facility] Comment on above: Performed By: #### P TT, PT #### [facility] [address] [address] [address] Celi Guerin Calcium [Mass/Vol] 7.6 mg/dL Critically low 8.5-10.1 [facility] Comment on above: Performed By: #### P TT, PT #### [facility] [address] [address] [address] Celi Guerin Chloride [Moles/Vol] 97 mmol/L Critically low 98-107 [facility] Comment on above: Performed By: #### P TT, PT #### [facility] [address] [address] [address] Celi Guerin CO2 [Moles/Vol] 22.3 mmol/L Normal 22.0-30.0 [facility] Comment on above: Performed By: #### P TT, PT #### [facility] [address] [address] [address] Celi Guerin Creatinine [Mass/Vol] 0.39 mg/dL Critically low 0.52-1.04 [facility] Comment on above: Performed By: #### P TT, PT #### [facility] [address] [address] [address] Celi Guerin EGFR-AF UZBEK >60 Normal >=60 [facility] Comment on above: Performed By: #### P TT, PT #### [facility] [address] [address] [address] Celi Guerin EGFR-NON AF UZBEK >60 Normal >=60 [facility] Comment on above: Performed By: #### P TT, PT #### [facility] [address] [place] [address] Dr. Celi Guerin Globulin (S) [Mass/Vol] 3.1 g/dL Normal T [facility] Comment on above: Performed By: #### P TT, PT #### [facility] [address] [address] [address] Celi Guerin Glucose [Mass/Vol] 63 mg/dL Critically low 74-106 [facility] Comment on above: Performed By: #### P TT, PT #### [facility] [address] [place] [address] Dr. Celi Guerin Potassium [Moles/Vol] 3.1 mmol/L Critically low 3.4-5.0 [facility] Comment on above: Performed By: #### P TT, PT #### [facility] [address] [address] [address] Celi Guerin Protein [Mass/Vol] 6.1 g/dL Normal 6.1-8.2 [facility] [facility] Comment on above: Performed By: #### P TT, PT #### [facility] [address] [address] [address] Celi Guerin Sodium [Moles/Vol] 133 mmol/L Critically low 137-145 [facility] Comment on above: Performed By: #### P TT, PT #### [facility] [address] [place] [address] Dr. Celi Guerin Urea nitrogen [Mass/Vol] 3.0 mg/dL Critically low 7.0-18. 0 [facility] Comment on above: Performed By: #### P TT, PT #### [facility] [address] [place] [address] Dr. Celi Guerin Urea nitrogen/Creatinine [Mass ratio] 7.7 mg/mg Normal [facility] Comment on above: Performed By: #### P TT, PT #### [facility] [address] [place] [address] Dr. Celi Guerin AMMONIAon 10-10-2021 Ammonia (P) [Moles/Vol] 39 umol/L Critically high 11-32 [facility] Comment on above: Performed By: #### E RUR, UMICRO #### [facility] [address] [place] [address] Dr. Celi Guerin AMYLASEon 10-10-2021 Amylase [Catalytic activity/Vol] 892 U/L Critically hig h 25-115 [facility] Comment on above: Result Comment: Test Repeated. Critical ValueVerified Performed By: #### D RUGRPD #### [facility] [address] [place] [address] Dr. Celi Guerin CBC AUTO DIFFon 10-10-2021 BASO # 0.0 103/ul Normal 0.0-0.1 [facility] Comment on above: Performed By: #### P TT, PT #### [facility] [address] [place] [address] Dr. Celi Guerin Basophils/100 WBC (Bld) 0.2 % Normal 0.2-2.0 [facility] Comment on above: Performed By: #### P TT, PT #### [facility] [address] [place] [address] Dr. Celi Guerin EO # 0.0 103/ul Normal 0.0-0.7 [facility] Comment on above: Performed By: #### P TT, PT #### [facility] [address] [place] [address] Dr. Celi Guerin Eosinophils/100 WBC (Bld) 0.0 % Critically low 0.9-7. 0 [facility] Comment on above: Performed By: #### P TT, PT #### [facility] [address] [place] [address] Dr. Celi Guerin Erythrocyte distribution wid th (RBC) [Ratio] 18.2 % Critically high 11.0-15.0 [facility] Comment on above: Performed By: #### P TT, PT #### [facility] [address] [place] [address] Dr. Celi Guerin Hematocrit (Bld) [Volume fraction] 32.8 % Critically low 36.0-48.0 [facility] Comment on above: Performed By: #### P TT, PT #### [facility] [address] [place] [address] Dr. Celi Guerin Hemoglobin (Bld) [Mass/Vol] 10.2 g/dL Critically low 12.0 -16.0 [facility] Comment on above: Performed By: #### P TT, PT #### [facility] [address] [place] [address] Dr. Celi Gueirn IG # 0.04 10e3/ul Critically high 0.00-0.03 [facility] Comment on above: Performed By: #### P TT, PT #### [facility] [address] [place] [address] Dr. Celi Guerin IG % 0.7 % Critically high 0.0-0.5 [facility] Comment on above: Performed By: #### P TT, PT #### [facility] [address] [place] [address] Dr. Celi Guerin LYMPH # 0.9 103/ul Critically low 1.2-3.[address] [facility] Comment on above: Performed By: #### P TT, PT #### [facility] [address] [place] [address] Dr. Celi Guerin Lymphocytes/100 WBC (Bld) 15.4 % Critically low 20.5-6 0.0 [facility] Comment on above: Performed By: #### P TT, PT #### [facility] [address] [place] [address] Dr. Celi Guerin MANUAL DIFF REQ NO Normal [facility] Comment on above: Performed By: #### P TT, PT #### [facility] [address] [place] [address] Dr. Celi Guerin MCH (RBC) [Entitic mass] 26.0 pg Critically low 26.7-34 .0 [facility] Comment on above: Performed By: #### P TT, PT #### [facility] [address] [place] [address] Dr. Celi Guerin MCHC (RBC) [Mass/Vol] 31.1 g/dL Normal 29.9-35.2 [facility] Comment on above: Performed By: #### P TT, PT #### [facility] [address] [place] [address] Dr. Celi Guerin MCV (RBC) [Entitic vol] 83.5 fL Normal 81.0-99.0 [facility] Comment on above: Performed By: #### P TT, PT #### [facility] [address] [place] [address] Dr. Celi Guerin MONO # 0.4 103/ul Normal 0.3-0.8 [facility] Comment on above: Performed By: #### P TT, PT #### [facility] [address] [place] [address] Dr. Celi Guerin Monocytes/100 WBC (Bld) 7.5 % Normal 1.7-12.0 [facility] Comment on above: Performed By: #### P TT, PT #### [facility] [address] [place] [address] Dr. Celi Guerin NEUT # 4.5 103/ul Normal 1.4-6.5 [facility] Comment on above: Performed By: #### P TT, PT #### [facility] [address] [place] [address] Dr. Celi Guerin Neutrophils/100 WBC (Bld) 76.2 % Critically high 43.0- 75.0 [facility] Comment on above: Performed By: #### P TT, PT #### [facility] [address] [place] [address] Dr. Celi Guerin Platelet mean volume (Bld) [ Entitic vol] 10.6 fL Normal 9.5-13.5 [facility] pital Comment on above: Performed By: #### P TT, PT #### [facility] [address] [place] [address] Dr. Celi Guerin PLT 53 103/ul Critically low 150-[address] [facility] Comment on above: Performed By: #### P TT, PT #### [facility] [address] [place] [address] Dr. Celi Guerin RBC 3.93 106/ul Critically low 4.20-5.40 [facility] Comment on above: Performed By: #### P TT, PT #### [facility] [address] [place] [address] Dr. Celi Guerin WBC 5.9 103/ul Normal 4.0-11.0 [facility] Comment on above: Performed By: #### P TT, PT #### [facility] [address] [place] [address] Dr. Celi Guerin DRUG SCREEN RAPID (URINE)on 10-10-2021 AMP Negative Normal NEGATIVE [facility] Comment on above: Performed By: #### D RUGRPD #### [facility] [address] [place] [address] Dr. Celi Guerin BAR Positive Abnormal NEGATIVE [facility] Comment on above: Performed By: #### D RUGRPD #### [facility] [address] [place] [address] Dr. Celi Guerin BUP Negative Normal NEGATIVE [facility] Comment on above: Performed By: #### D RUGRPD #### [facility] [address] [place] [address] Dr. Celi Guerin BZO Positive Abnormal NEGATIVE [facility] Comment on above: Performed By: #### D RUGRPD #### [facility] [address] [place] [address] Dr. Celi Guerin REED Negative Normal NEGATIVE [facility] Comment on above: Performed By: #### D RUGRPD #### [facility] [address] [place] [address] Dr. Celi Guerin CUT-OFFS SEE BELOW Normal [facility] Comment on above: Result Comment: AMP [...] ng/mL Performed By: #### D RUGRPD #### [facility] [address] [place] [address] Dr. Celi Guerin DRUG CUT HEADER DRUG CLASS TEST SYST EM CUT-OFF CONCENTRATIONS ARE FOLLOWS: Normal [facility] Comment on above: Performed By: #### D RUGRPD #### [facility] [address] [place] [address] Dr. Celi Guerin mAMP Negative Normal NEGATIVE [facility] Comment on above: Performed By: #### D RUGRPD #### [facility] [address] [place] [address] Dr. Celi Guerin MTD Negative Normal NEGATIVE [facility] Comment on above: Performed By: #### D RUGRPD #### [facility] [address] [place] [address] Dr. Celi Guerin OPI Positive Abnormal NEGATIVE [facility] Comment on above: Performed By: #### D RUGRPD #### [facility] [address] [place] [address] Dr. Celi Guerin OXY Negative Normal NEGATIVE [facility] Comment on above: Performed By: #### D RUGRPD #### [facility] [address] [place] [address] Dr. Celi Guerin PCP Negative Normal NEGATIVE [facility] Comment on above: Performed By: #### D RUGRPD #### [facility] [address] [place] [address] Dr. Celi Guerin PPX Negative Normal NEGATIVE [facility] Comment on above: Performed By: #### D RUGRPD #### [facility] [address] [place] [address] Dr. Celi Guerin TCA Negative Normal NEGATIVE [facility] Comment on above: Performed By: #### D RUGRPD #### [facility] [address] [place] [address] Dr. Celi Guerin THC Positive Abnormal NEGATIVE [facility] Comment on above: Performed By: #### D RUGRPD #### [facility] [address] [place] [address] Dr. Celi Guerin ER URINE PROFILEon 2 Bilirubin Ql (U) Negative Normal NEGATIVE [facility] Comment on above: Performed By: #### P TT, PT #### [facility] [address] [place] [address] Dr. Celi Guerin Clarity (U) CLEAR Normal CLEAR [facility] Comment on above: Performed By: #### P TT, PT #### [facility] [address] [place] [address] Dr. Celi Guerin Color (U) YELLOW Normal YELLOW [facility] Comment on above: Performed By: #### P TT, PT #### [facility] [address] [place] [address] Dr. Celi Guerin ERUPAT A micrscopic examina tion will be performed if indicated. Normal The [facility] l Comment on above: Performed By: #### P TT, PT #### [facility] [address] [place] [address] Dr. Celi Guerin Glucose Ql (U) Negative Normal NEGATIVE [facility] Comment on above: Performed By: #### P TT, PT #### [facility] [address] [place] [address] Dr. Celi Guerin Hemoglobin Ql (U) MODERATE Abnormal NEGATIVE [facility] Comment on above: Performed By: #### P TT, PT #### [facility] [address] [address] [address] Celi Guerin Ketones Ql (U) 15 mg/dl Abnormal NEGATIVE [facility] Comment on above: Performed By: #### P TT, PT #### [facility] [address] [place] [address] Dr. Celi Guerin LEUKOCYTES Negative Normal NEGATIVE [facility] Comment on above: Performed By: #### P TT, PT #### [facility] [address] [place] [address] Dr. Celi Guerin Nitrite Ql (U) Negative Normal NEGATIVE [facility] Comment on above: Performed By: #### P TT, PT #### [facility] [address] [place] [address] Dr. Celi Guerin pH (U) 6.0 [pH] Normal 5-[address] [facility] Comment on above: Performed By: #### P TT, PT #### [facility] [address] [place] [address] Dr. Celi Guerin Protein (U) [Mass/Vol] 30 mg/dL Abnormal NEGATIVE/ TRA CE [facility] Comment on above: Performed By: #### P TT, PT #### [facility] [address] [place] [address] Dr. Celi Guerin SPEC GRAVITY 1.025 Normal 1.005-<=1.025 [facility] Comment on above: Performed By: #### P TT, PT #### [facility] [address] [place] [address] Dr. Celi Guerin UR MICRO IND INDICATED Normal [facility] Comment on above: Performed By: #### P TT, PT #### [facility] [address] [place] [address] Dr. Celi Guerin Urobilinogen Qn (U) 0.2 {Irlanda'U}/dL Normal 0.2 - 1. 0 [facility] Comment on above: Performed By: #### P TT, PT #### [facility] [address] [place] [address] Dr. Celi Guerin LIPASEon 10-10-2021 Lipase [Catalytic activity/Vol] U/L Critically high 23.0-300.0 [facility] Comment on above: Performed By: #### D RUGRPD #### [facility] [address] [place] [address] Dr. Celi Guerin PROF 14(COMP METB)on 022 Albumin [Mass/Vol] 3.4 g/dL Normal 3.4-5.0 [facility] Comment on above: Performed By: #### D RUGRPD #### [facility] [address] [place] [address] Dr. Celi Guerin Albumin/Globulin [Mass ratio] 1.1 {ratio} Normal [facility] Comment on above: Performed By: #### D RUGRPD #### [facility] [address] [place] [address] Dr. Celi Guerin ALP [Catalytic activity/Vol] 81 U/L Normal 46-116 [facility] Comment on above: Performed By: #### D RUGRPD #### [facility] [address] [place] [address] Dr. Celi Guerin ALT [Catalytic activity/Vol] 36 U/L Normal 14-59 [facility] Comment on above: Performed By: #### D RUGRPD #### [facility] [address] [place] [address] Dr. Celi Guerin Anion gap [Moles/Vol] 13.4 mmol/L Normal [facility] Comment on above: Performed By: #### D RUGRPD #### [facility] [address] [place] [address] Dr. Celi Guerin AST [Catalytic activity/Vol] 53 U/L Critically high 15 -37 [facility] Comment on above: Performed By: #### D RUGRPD #### [facility] [address] [address] [address] Celi Guerin Bilirubin [Mass/Vol] 1.1 mg/dL Normal 0.2-1.3 [facility] Comment on above: Performed By: #### D RUGRPD #### [facility] [address] [address] [address] Celi Guerin Calcium [Mass/Vol] 7.7 mg/dL Critically low 8.5-10.1 [facility] Comment on above: Performed By: #### D RUGRPD #### [facility] [address] [address] [address] Celi Guerin Chloride [Moles/Vol] 98 mmol/L Normal 98-107 [facility] Comment on above: Performed By: #### D RUGRPD #### [facility] [address] [place] [address] Dr. Celi Guerin CO2 [Moles/Vol] 27.3 mmol/L Normal 22.0-30.0 [facility] Comment on above: Performed By: #### D RUGRPD #### [facility] [address] [place] [address] Dr. Celi Guerin Creatinine [Mass/Vol] 0.38 mg/dL Critically low 0.52-1.04 [facility] Comment on above: Performed By: #### D RUGRPD #### [facility] [address] [place] [address] Dr. Celi Guerin EGFR-AF UZBEK >60 Normal >=60 [facility] Comment on above: Performed By: #### D RUGRPD #### [facility] [address] [address] [address] Celi Guerin EGFR-NON AF UZBEK >60 Normal >=60 [facility] Comment on above: Performed By: #### D RUGRPD #### [facility] [address] [place] [address] Dr. Celi Guerin Globulin (S) [Mass/Vol] 3.1 g/dL Normal T [facility] Comment on above: Performed By: #### D RUGRPD #### [facility] [address] [address] [address] Celi Guerin Glucose [Mass/Vol] 94 mg/dL Normal 74-106 [facility] Comment on above: Performed By: #### D RUGRPD #### [facility] [address] [address] [address] Celi Guerin Potassium [Moles/Vol] 3.7 mmol/L Normal 3.4-5.0 [facility] Comment on above: Performed By: #### D RUGRPD #### [facility] [address] [address] [address] Celi Guerin Protein [Mass/Vol] 6.5 g/dL Normal 6.1-8.2 [facility] Comment on above: Performed By: #### D RUGRPD #### [facility] [address] [address] [address] Celi Guerin Sodium [Moles/Vol] 135 mmol/L Critically low 137-145 [facility] Comment on above: Performed By: #### D RUGRPD #### [facility] [address] [address] [address] Celi Guerin Urea nitrogen [Mass/Vol] 6.0 mg/dL Critically low 7.0-18. 0 [facility] Comment on above: Performed By: #### D RUGRPD #### [facility] [address] [address] [address] Celi Guerin Urea nitrogen/Creatinine [Mass ratio] 15.8 mg/mg Normal [facility] Comment on above: Performed By: #### D RUGRPD #### [facility] [address] [address] [address] Celi Guerin URINE MICROSCOPIC ONLYon BACTERIA TRACE Abnormal NONE SEEN [facility] Comment on above: Performed By: #### P TT, PT #### [facility] [address] [address] [address] Celi Guerin Bacteria identified Cx Nom (U) NOT INDICATED Normal [facility] Comment on above: Performed By: #### P TT, PT #### [facility] [address] [place] [address] Dr. Celi Guerin CAST NONE SEEN Normal NONE SEEN [facility] Comment on above: Performed By: #### P TT, PT #### [facility] [address] [place] [address] Dr. Celi Guerin Crystals LM Nom (Urine sed) NONE SEEN Normal NONE SEE N [facility] Comment on above: Performed By: #### P TT, PT #### [facility] [address] [place] [address] Dr. Celi Guerin Epithelial cells LM Ql (Urine sed) FEW Abnormal N ONE SEEN /RARE [facility] Comment on above: Performed By: #### P TT, PT #### [facility] [address] [place] [address] Dr. Celi Guerin MUCOUS SMALL Abnormal NONE SEEN [facility] Comment on above: Performed By: #### P TT, PT #### [facility] [address] [place] [address] Dr. Celi Guerin RBC 5-10 Abnormal 0-2 [facility] Comment on above: Performed By: #### P TT, PT #### [facility] [address] [place] [address] Dr. Celi Guerin WBC 0-2 Abnormal NONE SEEN [facility] Comment on above: Performed By: #### P TT, PT #### [facility] [address] [place] [address] Dr. Celi Guerin CBC AUTO DIFFon 10-09-2021 BASO # 0.0 103/ul Normal 0.0-0.1 [facility] Comment on above: Performed By: #### ARTEMIO GOMEZ #### [facility] [address] [place] [address] Dr. Celi Guerin Basophils/100 WBC (Bld) 0.1 % Critically low 0.2-2.0 [facility] Comment on above: Performed By: #### YURI GOMEZRO #### [facility] [address] [place] [address] Dr. Celi Guerin EO # 0.0 103/ul Normal 0.0-0.7 [facility] Comment on above: Performed By: #### Sergey ESTRELLA UMICRO #### [facility] [address] [place] [address] Dr. Celi Guerin Eosinophils/100 WBC (Bld) 0.1 % Critically low 0.9-7. 0 [facility] Comment on above: Performed By: #### Sergey ESTRELLA UMICRO #### [facility] [address] [place] [address] Dr. Celi Guerin Erythrocyte distribution wid th (RBC) [Ratio] 18.5 % Critically high 11.0-15.0 [facility] Comment on above: Performed By: #### Seregy ESTRELLA UMICRO #### [facility] [address] [place] [address] Dr. Celi Guerin Hematocrit (Bld) [Volume fraction] 36.0 % Normal 3 6.0-48.0 [facility] Comment on above: Performed By: #### FLOR GOMEZICRO #### [facility] [address] [place] [address] Dr. Celi Guerin Hemoglobin (Bld) [Mass/Vol] 11.3 g/dL Critically low 12.0 -16.0 [facility] Comment on above: Performed By: #### Sergey ESTRELLA UMICRO #### [facility] [address] [place] [address] Dr. Celi Guerin IG # 0.06 10e3/ul Critically high 0.00-0.03 [facility] Comment on above: Performed By: #### Sergey ESTRELLA UMICRO #### [facility] [address] [place] [address] Dr. Celi Guerin IG % 0.8 % Critically high 0.0-0.5 [facility] Comment on above: Performed By: #### YURI GOMEZRO #### [facility] [address] [place] [address] Dr. Celi Guerin LYMPH # 1.5 103/ul Normal 1.2-3.8 [facility] Comment on above: Performed By: #### FLOR GOMEZICRO #### [facility] [address] [place] [address] Dr. Celi Guerin Lymphocytes/100 WBC (Bld) 19.3 % Critically low 20.5-6 0.0 [facility] Comment on above: Performed By: #### FLOR GOMEZICRO #### [facility] [address] [place] [address] Dr. Celi Guerin MANUAL DIFF REQ NO Normal [facility] Comment on above: Performed By: #### Sergey ESTRELLA UMICRO #### [facility] [address] [place] [address] Dr. Celi Guerin MCH (RBC) [Entitic mass] 25.7 pg Critically low 26.7-34 .0 [facility] Comment on above: Performed By: #### FLOR GOMEZICRO #### [facility] [address] [place] [address] Dr. Celi Guerin MCHC (RBC) [Mass/Vol] 31.4 g/dL Normal 29.9-35.2 [facility] Comment on above: Performed By: #### FLOR GOMEZICRO #### [facility] [address] [place] [address] Dr. Celi Guerin MCV (RBC) [Entitic vol] 81.8 fL Normal 81.0-99.0 [facility] Comment on above: Performed By: #### Sergey ESTRELLA UMICRO #### [facility] [address] [place] [address] Dr. Celi Guerin MONO # 0.6 103/ul Normal 0.3-0.8 [facility] Comment on above: Performed By: #### Sergey ESTRELLA UMICRO #### [facility] [address] [place] [address] Dr. Celi Guerin Monocytes/100 WBC (Bld) 7.9 % Normal 1.7-12.0 [facility] Comment on above: Performed By: #### YURI GOMEZRO #### [facility] [address] [place] [address] Dr. Celi Guerin NEUT # 5.6 103/ul Normal 1.4-6.5 [facility] Comment on above: Performed By: #### YURI GOMEZRO #### [facility] [address] [place] [address] Dr. Celi Guerin Neutrophils/100 WBC (Bld) 71.8 % Normal 43.0-75.0 [facility] Comment on above: Performed By: #### FLOR GOMEZICRO #### [facility] [address] [place] [address] Dr. Celi Guerin Platelet mean volume (Bld) [ Entitic vol] 10.3 fL Normal 9.5-13.5 [facility] Comment on above: Performed By: #### YURI GOMEZRO #### [facility] [address] [place] [address] Dr. Celi Guerin PLT 78 103/ul Critically low 150-[address] [facility] Comment on above: Performed By: #### YURI GOMEZRO #### [facility] [address] [place] [address] Dr. Celi Guerin RBC 4.40 106/ul Normal 4.20-5.40 [facility] Comment on above: Performed By: #### YURI GOMEZRO #### [facility] [address] [place] [address] Dr. Celi Guerin WBC 7.8 103/ul Normal 4.0-11.0 The [facility] Comment on above: Performed By: #### YURI GOMEZRO #### [facility] [address] [place] [address] Dr. Celi Guerin Covid-19 PCR ([facility])on 09-26 SARS-CoV-2 (COVID-19) RNA LIBERTAD+probe Ql (Unsp spec) Not detected Normal NOT DETECTED The [facility] Comment on above: Result Comment: When [...] for this test is supported by the [place] of Health and Human Service's declaration that [...] Performed By: #### P TT, PT #### [facility] [address] [place] [address] Dr. Celi Guerin ETHANOL (BLD ALC)on 10-10-19 22 ALC NOTE NOTE: 80 mg/dl is th e legal limit for a blood alcohol level Normal [facility] Comment on above: Performed By: #### P TT, PT #### [facility] [address] [place] [address] Dr. Celi Guerin Ethanol [Mass/Vol] 26 mg/dL Normal [facility] Comment on above: Performed By: #### P TT, PT #### [facility] [address] [place] [address] Dr. Celi Guerin LIPASEon 10-09-2021 Lipase [Catalytic activity/Vol] U/L Critically high 23.0-300.0 [facility] Comment on above: Performed By: #### P TT, PT #### [facility] [address] [place] [address] Dr. Celi Guerin PROF 14(COMP METB)on 022 Albumin [Mass/Vol] 4.1 g/dL Normal 3.4-5.0 [facility] Comment on above: Performed By: #### P TT, PT #### [facility] [address] [place] [address] Dr. Celi Guerin Albumin/Globulin [Mass ratio] 1.1 {ratio} Normal [facility] Comment on above: Performed By: #### P TT, PT #### [facility] [address] [place] [address] Dr. Celi Guerin ALP [Catalytic activity/Vol] 100 U/L Normal 46-116 [facility] Comment on above: Performed By: #### P TT, PT #### [facility] [address] [address] [address] Celi Guerin ALT [Catalytic activity/Vol] 44 U/L Normal 14-59 [facility] Comment on above: Performed By: #### P TT, PT #### [facility] [address] [place] [address] Dr. Celi Guerin Anion gap [Moles/Vol] 18.9 mmol/L Normal [facility] Comment on above: Performed By: #### P TT, PT #### [facility] [address] [place] [address] Dr. Celi Guerin AST [Catalytic activity/Vol] 84 U/L Critically high 15 -37 [facility] Comment on above: Performed By: #### P TT, PT #### [facility] [address] [place] [address] Dr. Celi Guerin Bilirubin [Mass/Vol] 0.6 mg/dL Normal 0.2-1.3 [facility] Comment on above: Performed By: #### P TT, PT #### [facility] [address] [place] [address] Dr. Celi Guerin Calcium [Mass/Vol] 8.8 mg/dL Normal 8.5-10.1 [facility] Comment on above: Performed By: #### P TT, PT #### [facility] [address] [place] [address] Dr. Celi Guerin Chloride [Moles/Vol] 100 mmol/L Normal 98-107 [facility] Comment on above: Performed By: #### P TT, PT #### [facility] [address] [place] [address] Dr. Celi Guerin CO2 [Moles/Vol] 20.8 mmol/L Critically low 22.0-30.0 [facility] Comment on above: Performed By: #### P TT, PT #### [facility] [address] [place] [address] Dr. Celi Guerin Creatinine [Mass/Vol] 0.56 mg/dL Normal 0.52-1.04 [facility] Comment on above: Performed By: #### P TT, PT #### [facility] [address] [address] [address] Celi Guerin EGFR-AF UZBEK >60 Normal >=60 [facility] Comment on above: Performed By: #### P TT, PT #### [facility] [address] [place] [address] Dr. Celi Guerin EGFR-NON AF UZBEK >60 Normal >=60 [facility] Comment on above: Performed By: #### P TT, PT #### [facility] [address] [place] [address] Dr. Celi Guerin Globulin (S) [Mass/Vol] 3.8 g/dL Normal [facility] Comment on above: Performed By: #### P TT, PT #### [facility] [address] [place] [address] Dr. Celi Guerin Glucose [Mass/Vol] 130 mg/dL Critically high 74-106 [facility] Comment on above: Performed By: #### P TT, PT #### [facility] [address] [place] [address] Dr. Celi Guerin Potassium [Moles/Vol] 3.7 mmol/L Normal 3.4-5.0 [facility] Comment on above: Performed By: #### P TT, PT #### [facility] [address] [place] [address] Dr. Celi Guerin Protein [Mass/Vol] 7.9 g/dL Normal 6.1-8.2 [facility] Comment on above: Performed By: #### P TT, PT #### [facility] [address] [place] [address] Dr. Celi Guerin Sodium [Moles/Vol] 136 mmol/L Critically low 137-145 [facility] Comment on above: Performed By: #### P TT, PT #### [facility] [address] [place] [address] Dr. Celi Guerin Urea nitrogen [Mass/Vol] 9.0 mg/dL Normal 7.0-18.0 [facility] Comment on above: Performed By: #### P TT, PT #### [facility] [address] [place] [address] Dr. Celi Guerin Urea nitrogen/Creatinine [Mass ratio] 16.1 mg/mg Normal [facility] Comment on above: Performed By: #### P TT, PT #### [facility] [address] [place] [address] Dr. Celi Guerin CULTURE URINEon 09-02-2021 CULTURE [...] S F Trimethoprim/Sulfamethoxazole <=20 S F Normal [facility] Comment on above: Performed By: #### P TT, PT #### [facility] [address] [place] [address] Dr. Celi Guerin AMYLASEon 08-30-2021 Amylase [Catalytic activity/Vol] 538 U/L Critically hig h 31-110 [facility] Comment on above: Result Comment: TEST REPEATED CRITICAL VALUE VERIFIED Performed By: #### P TT, PT #### [facility] [address] [place] [address] Dr. Celi Guerin CBC AUTO DIFFon 08-30-2021 BASO # 0.0 103/ul Normal 0.0-0.1 [facility] Comment on above: Performed By: #### YURI GOMEZRO #### [facility] [address] [place] [address] Dr. Celi Guerin Basophils/100 WBC (Bld) 0.2 % Normal 0.2-2.[address] [facility] Comment on above: Performed By: #### FLOR GOMEZICRO #### [facility] [address] [place] [address] Dr. Celi Guerin EO # 0.0 103/ul Normal 0.0-0.7 [facility] Comment on above: Performed By: #### FLOR GOMEZICRO #### [facility] [address] [place] [address] Dr. Celi Guerin Eosinophils/100 WBC (Bld) 0.2 % Critically low 0.9-7. 0 [facility] Comment on above: Performed By: #### FLOR GOMEZICRO #### [facility] [address] [place] [address] Dr. Celi Gurein Erythrocyte distribution wid th (RBC) [Ratio] 17.0 % Critically high 11.0-15.0 [facility] Comment on above: Performed By: #### Sergey ESTRELLA UMICRO #### [facility] [address] [place] [address] Dr. Celi Guerin Hematocrit (Bld) [Volume fraction] 34.2 % Critically low 36.0-48.0 [facility] Comment on above: Performed By: #### Sergey ESTRELLA UMICRO #### [facility] [address] [place] [address] Dr. Celi Guerin Hemoglobin (Bld) [Mass/Vol] 10.6 g/dL Critically low 12.0 -16.0 [facility] Comment on above: Performed By: #### Sergey ESTRELLA UMICRO #### [facility] [address] [place] [address] Dr. Celi Guerin IG # 0.03 10e3/ul Normal 0.00-0.03 [facility] Comment on above: Performed By: #### Sergey ESTRELLA UMICRO #### [facility] [address] [place] [address] Dr. Celi Guerin IG % 0.5 % Normal 0.0-0.5 [facility] Comment on above: Performed By: #### Sergey ESTRELLA UMICRO #### [facility] [address] [place] [address] Dr. Celi Guerin LYMPH # 0.8 103/ul Critically low 1.2-3.8 [facility] Comment on above: Performed By: #### E SAMEER UMICRO #### [facility] [address] [place] [address] Dr. Celi Guerin Lymphocytes/100 WBC (Bld) 14.4 % Critically low 20.5-6 0.0 [facility] Comment on above: Performed By: #### Sergey ESTRELLA UMICRO #### [facility] [address] [place] [address] Dr. Celi Guerin MANUAL DIFF REQ NO Normal [facility] Comment on above: Performed By: #### Sergey ESTRELLA UMICRO #### [facility] [address] [place] [address] Dr. Celi Guerin MCH (RBC) [Entitic mass] 26.9 pg Normal 26.7-34.0 [facility] Comment on above: Performed By: #### Sergey ESTRELLA UMICRO #### [facility] [address] [place] [address] Dr. Celi Guerin MCHC (RBC) [Mass/Vol] 31.0 g/dL Normal 29.9-35.2 [facility] Comment on above: Performed By: #### Sergey ESTRELLA UMICRO #### [facility] [address] [place] [address] Dr. Celi Guerin MCV (RBC) [Entitic vol] 86.8 fL Normal 81.0-99.0 [facility] Comment on above: Performed By: #### Sergey ESTRELLA UMICRO #### [facility] [address] [place] [address] Dr. Celi Guerin MONO # 0.3 103/ul Normal 0.3-0.8 [facility] Comment on above: Performed By: #### FLOR GOMEZICRO #### [facility] [address] [place] [address] Dr. Celi Guerin Monocytes/100 WBC (Bld) 4.9 % Normal 1.7-12.0 [facility] Comment on above: Performed By: #### Sergey ESTRELLA UMICRO #### [facility] [address] [place] [address] Dr. Celi Guerin NEUT # 4.6 103/ul Normal 1.4-6.5 [facility] Comment on above: Performed By: #### Sergey ESTRELLA UMICRO #### [facility] [address] [place] [address] Dr. Celi Guerin Neutrophils/100 WBC (Bld) 79.8 % Critically high 43.0- 75.0 [facility] Comment on above: Performed By: #### Sergey ESTRELLA UMICRO #### [facility] [address] [place] [address] Dr. Celi Guerin Platelet mean volume (Bld) [ Entitic vol] 11.7 fL Normal 9.5-13.5 [facility] Comment on above: Performed By: #### Sergey ESTRELLA UMICRO #### [facility] [address] [place] [address] Dr. Celi Guerin PLT 68 103/ul Critically low 150-[address] [facility] Comment on above: Performed By: #### Sergey ESTRELLA UMICRO #### [facility] [address] [place] [address] Dr. Celi Guerin RBC 3.94 106/ul Critically low 4.20-5.40 [facility] Comment on above: Performed By: #### Sergey ESTRELLA, UMICRO #### [facility] [address] [place] [address] Dr. Celi Guerin WBC 5.8 103/ul Normal 4.0-11.0 [facility] Comment on above: Performed By: #### E ARTEMIO ESTRELLA #### [facility] [address] [address] [address] ABD/PELVIS WO CONon [...] BOONE LEA Date: 2021-08-30 18:43 Normal [facility] URINE PROFILEon 2 Bilirubin Ql (U) SMALL Abnormal NEGATIVE The [facility] Comment on above: Performed By: #### E RUR, UMICRO #### [facility] [address] [place] [address] Dr. Celi Guerin Clarity (U) CLEAR Normal CLEAR [facility] Comment on above: Performed By: #### E RUR, UMICRO #### [facility] [address] [place] [address] Dr. Celi Guerin Color (U) YELLOW Normal YELLOW [facility] Comment on above: Performed By: #### E RUR, UMICRO #### [facility] [address] [place] [address] Dr. Celi Guerin ERUJORDIND A micrscopic examina tion will be performed if indicated. Normal The [facility] Comment on above: Performed By: #### E RUR, UMICRO #### [facility] [address] [place] [address] Dr. Celi Guerin Glucose Ql (U) Negative Normal NEGATIVE [facility] Comment on above: Performed By: #### E RUR, UMICRO #### [facility] [address] [place] [address] Dr. Celi Guerin Hemoglobin Ql (U) Negative Normal NEGATIVE [facility] Comment on above: Performed By: #### E RUR, UMICRO #### [facility] [address] [place] [address] Dr. Celi Guerin Ketones Ql (U) >=80 Abnormal NEGATIVE The [facility] Comment on above: Performed By: #### E RUR, UMICRO #### [facility] [address] [place] [address] Dr. Celi Guerin LEUKOCYTES MODERATE Abnormal NEGATIVE [facility] Comment on above: Performed By: #### YURI GOMEZRO #### [facility] [address] [place] [address] Dr. Celi Guerin Nitrite Ql (U) Positive Abnormal NEGATIVE [facility] Comment on above: Performed By: #### YURI GOMEZRO #### [facility] [address] [place] [address] Dr. Celi Guerin pH (U) 6.5 [pH] Normal 5-9 [facility] Comment on above: Performed By: #### YURI GOMEZRO #### [facility] [address] [place] [address] Dr. Celi Guerin Protein (U) [Mass/Vol] 100 mg/dL Abnormal NEGATIVE/ TRA CE [facility] Comment on above: Performed By: #### YURI GOMEZRO #### [facility] [address] [place] [address] Dr. Celi Guerin SPEC GRAVITY 1.020 Normal 1.005-<=1.025 [facility] Comment on above: Performed By: #### YURI GOMEZRO #### [facility] [address] [place] [address] Dr. Celi Guerin UR MICRO IND INDICATED Normal [facility] Comment on above: Performed By: #### YURI GOMEZRO #### [facility] [address] [place] [address] Dr. Celi Guerin Urobilinogen Qn (U) 2.0 {Irlanda'U}/dL Abnormal 0.2 - 1. 0 [facility] Comment on above: Performed By: #### Sergey ESTRELLA UMICRO #### [facility] [address] [place] [address] Dr. Celi Guerin ETHANOL (BLD ALC)on 08-31-19 ALC NOTE NOTE: 80 mg/dl is th e legal limit for a blood alcohol level Normal [facility] Comment on above: Performed By: #### E TH #### [facility] [address] [place] [address] Dr. Celi Guerin Ethanol [Mass/Vol] mg/dL Normal [facility] Comment on above: Performed By: #### E TH #### [facility] [address] [place] [address] Dr. Celi Guerin LIPASEon 08-30-2021 Lipase [Catalytic activity/Vol] U/L Critically high 23.0-300.0 [facility] Comment on above: Result Comment: TEST REPEATED CRITICAL VALUE VERIFIED Performed By: #### P TT, PT #### [facility] [address] [place] [address] Dr. Celi Guerin PROF 14(COMP METB)on 022 Albumin [Mass/Vol] 3.9 g/dL Normal 3.5-5.0 [facility] Comment on above: Performed By: #### P TT, PT #### [facility] [address] [place] [address] Dr. Celi Guerin Albumin/Globulin [Mass ratio] 1.1 {ratio} Normal [facility] Comment on above: Performed By: #### P TT, PT #### [facility] [address] [place] [address] Dr. Celi Guerin ALP [Catalytic activity/Vol] 91 U/L Normal 38-126 [facility] Comment on above: Performed By: #### P TT, PT #### [facility] [address] [place] [address] Dr. Celi Guerin ALT [Catalytic activity/Vol] 52 U/L Normal 9-52 [facility] Comment on above: Performed By: #### P TT, PT #### [facility] [address] [place] [address] Dr. Celi Guerin Anion gap [Moles/Vol] 16.7 mmol/L Normal [facility] Comment on above: Performed By: #### P TT, PT #### [facility] [address] [place] [address] Dr. Celi Guerin AST [Catalytic activity/Vol] 59 U/L Critically high 14 -36 [facility] Comment on above: Performed By: #### P TT, PT #### [facility] [address] [place] [address] Dr. Celi Guerin Bilirubin [Mass/Vol] 1.0 mg/dL Normal 0.2-1.3 [facility] Comment on above: Performed By: #### P TT, PT #### [facility] [address] [place] [address] Dr. Celi Guerin Calcium [Mass/Vol] 9.0 mg/dL Normal 8.4-10.2 [facility] Comment on above: Performed By: #### P TT, PT #### [facility] [address] [place] [address] Dr. Celi Guerin Chloride [Moles/Vol] 95 mmol/L Critically low 98-107 [facility] Comment on above: Performed By: #### P TT, PT #### [facility] [address] [place] [address] Dr. Celi Guerin CO2 [Moles/Vol] 22.8 mmol/L Normal 22.0-30.0 [facility] Comment on above: Performed By: #### P TT, PT #### [facility] [address] [place] [address] Dr. Celi Guerin Creatinine [Mass/Vol] 0.57 mg/dL Normal 0.52-1.04 [facility] Comment on above: Performed By: #### P TT, PT #### [facility] [address] [place] [address] Dr. Celi Guerin EGFR-AF UZBEK >60 Normal >=60 [facility] Comment on above: Performed By: #### P TT, PT #### [facility] [address] [place] [address] Dr. Celi Guerin EGFR-NON AF UZBEK >60 Normal >=60 [facility] Comment on above: Performed By: #### P TT, PT #### [facility] [address] [place] [address] Dr. Celi Guerin Globulin (S) [Mass/Vol] 3.5 g/dL Normal T [facility] Comment on above: Performed By: #### P TT, PT #### [facility] [address] [place] [address] Dr. Celi Guerin Glucose [Mass/Vol] 82 mg/dL Normal 74-106 [facility] Comment on above: Performed By: #### P TT, PT #### [facility] [address] [place] [address] Dr. Celi Guerin Potassium [Moles/Vol] 3.5 mmol/L Normal 3.4-5.0 [facility] Comment on above: Performed By: #### P TT, PT #### [facility] [address] [place] [address] Dr. Celi Guerin Protein [Mass/Vol] 7.4 g/dL Normal 6.1-8.2 [facility] Comment on above: Performed By: #### P TT, PT #### [facility] [address] [place] [address] Dr. Celi Guerin Sodium [Moles/Vol] 131 mmol/L Critically low 137-145 [facility] Comment on above: Performed By: #### P TT, PT #### [facility] [address] [place] [address] Dr. eCli Guerin Urea nitrogen [Mass/Vol] 8.0 mg/dL Normal 7.0-17.0 [facility] Comment on above: Performed By: #### P TT, PT #### [facility] [address] [place] [address] Dr. Celi Guerin Urea nitrogen/Creatinine [Mass ratio] 14.0 mg/mg Normal [facility] Comment on above: Performed By: #### P TT, PT #### [facility] [address] [place] [address] Dr. Celi Guerin URINE MICROSCOPIC ONLYon BACTERIA MODERATE Abnormal NONE SEEN [facility] Comment on above: Performed By: #### E LUCEROR UMRADHARO #### [facility] [address] [place] [address] Dr. Celi Guerin Bacteria identified Cx Nom (U) INDICATED Normal [facility] Comment on above: Performed By: #### E RUR, UMICRO #### [facility] [address] [place] [address] Dr. Celi Guerin CAST SEEN Abnormal NONE SEEN [facility] Comment on above: Performed By: #### E RUR, UMICRO #### [facility] [address] [place] [address] Dr. Celi Guerin Crystals LM Nom (Urine sed) NONE SEEN Normal NONE SEE N [facility] Comment on above: Performed By: #### E RUR, UMICRO #### [facility] [address] [place] [address] Dr. Celi Guerin Epithelial cells LM Ql (Urine sed) FEW Abnormal N ONE SEEN /RARE [facility] Comment on above: Performed By: #### E RUR, UMICRO #### [facility] [address] [place] [address] Dr. Celi Guerin HYALINE CAST RARE Normal [facility] Comment on above: Performed By: #### E RUR, UMICRO #### [facility] [address] [place] [address] Dr. Celi Guerin MUCOUS NONE SEEN Normal NONE SEEN [facility] Comment on above: Performed By: #### E RUR, UMICRO #### [facility] [address] [place] [address] Dr. Celi Guerin RBC 0-2 Normal 0-2 [facility] Comment on above: Performed By: #### E RUR, UMICRO #### [facility] [address] [place] [address] Dr. Celi Guerin WBC 10-20 Abnormal NONE SEEN [facility] Comment on above: Performed By: #### E RUR, UMICRO #### [facility] [address] [place] [address] Dr. Celi Guerin AMYLASEon 07-04-2021 Amylase [Catalytic activity/Vol] 113 U/L Critically hig h 31-110 [facility] Comment on above: Performed By: #### E LUCEROARTEMIO Hendrix #### [facility] [address] [place] [address] Dr. Celi Guerin CBC AUTO DIFFon 07-04-2021 BASO # 0.0 103/ul Normal 0.0-0.[address] [facility] Comment on above: Performed By: #### C BC #### [facility] [address] [place] [address] Dr. Celi Guerin Basophils/100 WBC (Bld) 0.3 % Normal 0.2-2.0 [facility] Comment on above: Performed By: #### C BC #### [facility] [address] [place] [address] Dr. Celi Guerin EO # 0.0 103/ul Normal 0.0-0.[address] [facility] Comment on above: Performed By: #### C BC #### [facility] [address] [place] [address] Dr. Celi Guerin Eosinophils/100 WBC (Bld) 0.0 % Critically low 0.9-7. 0 [facility] Comment on above: Performed By: #### C BC #### [facility] [address] [place] [address] Dr. Celi Guerin Erythrocyte distribution wid th (RBC) [Ratio] 20.1 % Critically high 11.0-15.0 [facility] Comment on above: Performed By: #### C BC #### [facility] [address] [place] [address] Dr. Celi Guerin Hematocrit (Bld) [Volume fraction] 36.8 % Normal 3 6.0-48.0 [facility] Comment on above: Performed By: #### C BC #### [facility] [address] [place] [address] Dr. Celi Guerin Hemoglobin (Bld) [Mass/Vol] 12.3 g/dL Normal 12.0-16. 0 [facility] Comment on above: Performed By: #### C BC #### [facility] [address] [place] [address] Dr. Celi Guerin IG # 0.04 10e3/ul Critically high 0.00-0.03 [facility] Comment on above: Performed By: #### C BC #### [facility] [address] [place] [address] Dr. Celi Guerin IG % 0.6 % Critically high 0.0-0.5 [facility] Comment on above: Performed By: #### C BC #### [facility] [address] [place] [address] Dr. Celi Guerin LYMPH # 0.9 103/ul Critically low 1.2-3.8 [facility] Comment on above: Performed By: #### C BC #### [facility] [address] [place] [address] Dr. Celi Guerin Lymphocytes/100 WBC (Bld) 12.7 % Critically low 20.5-6 0.0 [facility] Comment on above: Performed By: #### C BC #### [facility] [address] [place] [address] Dr. Celi Guerin MANUAL DIFF REQ NO Normal [facility] Comment on above: Performed By: #### C BC #### [facility] [address] [place] [address] Dr. Celi Guerin MCH (RBC) [Entitic mass] 29.5 pg Normal 26.7-34.0 [facility] Comment on above: Performed By: #### C BC #### [facility] [address] [place] [address] Dr. Celi Guerin MCHC (RBC) [Mass/Vol] 33.4 g/dL Normal 29.9-35.2 [facility] Comment on above: Performed By: #### C BC #### [facility] [address] [place] [address] Dr. Celi Guerin MCV (RBC) [Entitic vol] 88.2 fL Normal 81.0-99.0 [facility] Comment on above: Performed By: #### C BC #### [facility] [address] [place] [address] Dr. Celi Guerin MONO # 0.5 103/ul Normal 0.3-0.8 [facility] Comment on above: Performed By: #### C BC #### [facility] [address] [place] [address] Dr. Celi Guerin Monocytes/100 WBC (Bld) 6.9 % Normal 1.7-12.0 [facility] Comment on above: Performed By: #### C BC #### [facility] [address] [place] [address] Dr. Celi Guerin NEUT # 5.5 103/ul Normal 1.4-6.5 [facility] Comment on above: Performed By: #### C BC #### [facility] [address] [place] [address] Dr. Celi Guerin Neutrophils/100 WBC (Bld) 79.5 % Critically high 43.0- 75.0 [facility] Comment on above: Performed By: #### C BC #### [facility] [address] [place] [address] Dr. Celi Guerin Platelet mean volume (Bld) [ Entitic vol] 10.0 fL Normal 9.5-13.5 [facility] Comment on above: Performed By: #### C BC #### [facility] [address] [place] [address] Dr. Celi Guerin PLT 95 103/ul Critically low 150-[address] [facility] Comment on above: Performed By: #### C BC #### [facility] [address] [place] [address] Dr. Celi Guerin RBC 4.17 106/ul Critically low 4.20-5.40 [facility] Comment on above: Performed By: #### C BC #### [facility] [address] [place] [address] Dr. Celi Guerin WBC 7.0 103/ul Normal 4.0-11.0 [facility] Comment on above: Performed By: #### C BC #### [facility] [address] [place] [address] ABD/PELV W RUDOLPHon [...] OSMIN MCGEE Date: 2021-07-04 16:56 Normal [facility] ETHANOL (BLD ALC)on 07-04-19 ALC NOTE NOTE: 80 mg/dl is th e legal limit for a blood alcohol level Normal [facility] Comment on above: Performed By: #### ARTEMIO GOMEZ #### [facility] [address] [place], [place] [address] Dr. Celi Guerin Ethanol [Mass/Vol] 35 mg/dL Normal [facility] Comment on above: Performed By: #### E ARTEMIO ESTRELLA #### [facility] [address] [place], [place] [address] Dr. Celi Guerin LIPASEon 07-04-2021 Lipase [Catalytic activity/Vol] 830.0 U/L Critically high 23.0-300.0 [facility] Comment on above: Performed By: #### YURI GOMEZRO #### [facility] [address] [place] [address] Dr. Celi Guerin PREG HCG QUALon 07-04-2021 , QUAL Negative Normal NEGATIVE [facility] Comment on above: Performed By: #### P REG #### [facility] [address] [place] [address] Dr. Celi Guerin PROF 14(COMP METB)on 022 Albumin [Mass/Vol] 3.2 g/dL Critically low 3.5-5.0 [facility] Comment on above: Performed By: #### YURI GOMEZRO #### [facility] [address] [place] [address] Dr. Celi Guerin Albumin/Globulin [Mass ratio] 0.7 {ratio} Normal [facility] Comment on above: Performed By: #### Sergey ESTRELLA UMICRO #### [facility] [address] [place] [address] Dr. Celi Guerin ALP [Catalytic activity/Vol] 126 U/L Normal 38-126 [facility] Comment on above: Performed By: #### FLOR GOMEZICRO #### [facility] [address] [place] [address] Dr. Celi Guerin ALT [Catalytic activity/Vol] 60 U/L Critically high 9- 52 [facility] Comment on above: Performed By: #### Sergey ESTRELLA UMICRO #### [facility] [address] [place] [address] Dr. Celi Guerin Anion gap [Moles/Vol] 17.7 mmol/L Normal [facility] Comment on above: Performed By: #### Sergey ESTRELLA UMICRO #### [facility] [address] [place] [address] Dr. Celi Guerin AST [Catalytic activity/Vol] 112 U/L Critically high 14 -36 [facility] Comment on above: Performed By: #### E SAMEER UMICRO #### [facility] [address] [place] [address] Dr. Celi Guerin Bilirubin [Mass/Vol] 0.7 mg/dL Normal 0.2-1.3 [facility] Comment on above: Performed By: #### E SAMEER UMICRO #### [facility] [address] [place] [address] Dr. Celi Guerin Calcium [Mass/Vol] 8.5 mg/dL Normal 8.4-10.2 [facility] Comment on above: Performed By: #### E SAMEER UMICRO #### [facility] [address] [place] [address] Dr. Celi Guerin Chloride [Moles/Vol] 98 mmol/L Normal 98-107 [facility] Comment on above: Performed By: #### E SAMEER UMICRO #### [facility] [address] [place] [address] Dr. Celi Guerin CO2 [Moles/Vol] 23.5 mmol/L Normal 22.0-30.0 [facility] Comment on above: Performed By: #### Sergey ESTRELLA UMICRO #### [facility] [address] [place] [address] Dr. Celi Guerin Creatinine [Mass/Vol] 0.57 mg/dL Normal 0.52-1.04 [facility] Comment on above: Performed By: #### Sergey ESTRELLA UMICRO #### [facility] [address] [place] [address] Dr. Celi Guerin EGFR-AF UZBEK >60 Normal >=60 [facility] Comment on above: Performed By: #### E SAMEER UMICRO #### [facility] [address] [place] [address] Dr. Celi Guerin EGFR-NON AF UZBEK >60 Normal >=60 [facility] Comment on above: Performed By: #### E RURuma UMICRO #### [facility] [address] [place] [address] Dr. Celi Guerin Globulin (S) [Mass/Vol] 4.3 g/dL Normal T [facility] Comment on above: Performed By: #### ARTEMIO GOMEZ #### [facility] [address] [place] [address] Dr. Celi Guerin Glucose [Mass/Vol] 104 mg/dL Normal 74-106 [facility] Comment on above: Performed By: #### YURI GOMEZRO #### [facility] [address] [place] [address] Dr. Celi Guerin Potassium [Moles/Vol] 3.2 mmol/L Critically low 3.4-5.0 [facility] Comment on above: Performed By: #### YURI GOMEZRO #### [facility] [address] [place] [address] Dr. Celi Guerin Protein [Mass/Vol] 7.5 g/dL Normal 6.1-8.2 [facility] Comment on above: Performed By: #### YURI GOMEZRO #### [facility] [address] [place] [address] Dr. Celi Guerin Sodium [Moles/Vol] 136 mmol/L Critically low 137-145 [facility] Comment on above: Performed By: #### ARTEMIO GOMEZ #### [facility] [address] [place] [address] Dr. Celi Guerin Urea nitrogen [Mass/Vol] 5.0 mg/dL Critically low 7.0-17. 0 [facility] Comment on above: Performed By: #### YURI GOMEZRO #### [facility] [address] [place] [address] Dr. Celi Guerin Urea nitrogen/Creatinine [Mass ratio] 8.8 mg/mg Normal [facility] Comment on above: Performed By: #### YURI GOMEZRO #### [facility] [address] [place] [address] Dr. Celi Guerin PROTIMEon 07-04-2021 INR Coag (PPP) [Relative time] 1.03 {INR} Normal [facility] Comment on above: Performed By: #### P TT, PT #### [facility] [address] [place] [address] [address] Celi Guerin INR GUIDELINES SEE BELOW Normal [facility] Comment on above: Result Comment: KIRILL RED INR: 2.0 - 3.0 CONDITIONS NOT LISTED BELOW 2.5 - 3.5 FOR PROSTHETIC HEART VALVE REPLACEMENT 2.5 - 3.5 RECURRENT THROMBOSIS Performed By: #### P TT, PT #### [facility] [address] [place] [address] Dr. Celi Guerin PT Coag (PPP) [Time] 11.1 s Normal 9.0-11.6 [facility] Comment on above: Performed By: #### P TT, PT #### [facility] [address] [place] [address] Dr. Celi Guerin PTTon 07-04-2021 aPTT Coag (Bld) [Time] 27.6 s Normal 22.3-36.2 [facility] Comment on above: Performed By: #### P TT, PT #### [facility] [address] [place] [address] Dr. Celi Guerin Covid-19 PCR ([facility])on SARS-CoV-2 (COVID-19) RNA LIBERTAD+probe Ql (Unsp spec) Not detected Normal NOT DETECTED [facility] Comment on above: Result Comment: When [...] for this test is supported by the [place] of Health and Human Service's declaration that [...] Performed By: #### E ARTEMIO ESTRELLA #### [facility] [address] [address] [address] Celi Guerin COVID-19/INFLUENZA A,B [facility] 05-21-2020 COVID-19/INFLUENZA A,B MOLECULAR SARS-COV-2 (YUNG): Detected INFLUENZA A (YUNG): Not Detected INFLUENZA B (YUNG): Not Detected Normal Not Detected [facility] Comment on above: Order Comment: This test [...] at the following links: For Healthcare Providers: https://www.fda.gov/media/617941/download For Patients: https://www.fda.gov/media/856372/download Performed By: #### L [id number] #### [facility] [address] [address] Faye Enriquez M.D. [id number] COVID-19/Influenza A,B [facility] 05-21-2020 Influenza A Not Detect[facility] Not Detected [facility] Not Detected [facility] Interpretation and review of laboratory results Abnormal [facility] SARS-CoV-2 Detected Abnormal Not Detected [facility] This test was perfor med under the [...] the following links: For Healthcare Providers: https://www.fda.gov/media /253977/download For Patients: https://www.fda.gov/media /329642/download [facility] INCISION AND DRAINAGEon 09-26 [place] [...] the procedure well with no immediate complications [facility] Alcohol, Medicalon 0 Ethanol [Mass/Vol] 342.00 mg/dL High <10.00 [facility] Interpretation and review of laboratory results Abnormal [facility] BMPon 08-29-2019 Anion gap [Moles/Vol] 11 mmol/L 10 - 20 mmol/L [facility] Calcium [Mass/Vol] 9.0 mg/dL 8.4 - 10.2 mg/dL [facility] Chloride [Moles/Vol] 111 mmol/L High 98 - 108 mmol/L [facility] Creatinine [Mass/Vol] 0.65 mg/dL 0.40 - 1.10 [facility] GFR/1.73 sq M predicted among non-blacks MDRD (S/P/Bld) [Vol rate/Area] The eGFR should be used for monitoring renal function only and not for medication dosing. [facility] GFR/1.73 sq M.predicted CKD-EPI (S/P/Bld) [Vol rate/Area] 118 >=60 mL/min/1.73 m2 [facility] Glucose [Mass/Vol] 86 mg/dL 65 - 99 mg/dL [facility] H[facility]3 [Moles/Vol] 24 mmol/L 21 - 32 mmol/L [facility] Interpretation and review of laboratory results Abnormal [facility] Potassium [Moles/Vol] 4.1 mmol/L 3.5 - 5.1 mmol /L [facility] Sodium [Moles/Vol] 142 mmol/L 135 - 145 mmol/L [facility] Urea nitrogen [Mass/Vol] 9 mg/dL 8 - 25 mg/d L [facility] Urea nitrogen/Creatinine [Mass ratio] 13.8 mg/mg [facility] CBC WITH AUTO DIFFERENTIALon 08-29-2019 Basophils (Bld) [#/Vol] 0.05 10*3/uL [facility] Basophils/100 WBC (Bld) 0.4 % [facility] Eosinophils (Bld) [#/Vol] 0.08 10*3/uL [facility] Eosinophils/100 WBC (Bld) 0.6 % [facility] Erythrocyte distribution wid th (RBC) [Entitic vol] 19.7 % High 11.6 - 14.8 % [facility] Hematocrit (Bld) [Volume fraction] 38.3 % 3 6 - 46 % [facility] Hemoglobin (Bld) [Mass/Vol] 12.8 g/dL 12 - 16 g/dL [facility] Immature granulocytes (Bld) [#/Vol] 0.05 10*3/uL [facility] Immature granulocytes/100 WBC (Bld) 0.40 % [facility] Comment on above: The IG parameter is the percentage of metamyelocytes, myelocytes, and promyelocytes. Interpretation and review of laboratory results Abnormal [facility] Lymphocytes (Bld) [#/Vol] 3.14 10*3/uL [facility] Lymphocytes/100 WBC (Bld) 23.9 % [facility] MCH (RBC) [Entitic mass] 29.1 pg 26 - 34 pg [facility] MCHC (RBC) [Mass/Vol] 33.4 g/dL 31 - 37 g/dL [facility] MCV (RBC) [Entitic vol] 87.0 fL 80 - 100 fL [facility] Monocytes (Bld) [#/Vol] 0.67 10*3/uL [facility] Monocytes/100 WBC (Bld) 5.1 % [facility] Neutrophils (Bld) [#/Vol] 9.16 10*3/uL High [facility] Neutrophils/100 WBC (Bld) 69.6 % [facility] Nucleated RBC (Bld) [#/Vol] 0.01 10*3/uL High [facility] Nucleated RBC/100 WBC (Bld) [Ratio] 0.1 % [facility] Platelet mean volume (Bld) [Entitic vol] 10.0 fL 9 - 15.5 fL [facility] Platelets (Bld) [#/Vol] 191 10*3/uL [facility] RBC (Bld) [#/Vol] 4.40 10*6/uL [facility] ealt WBC (Bld) [#/Vol] 13.15 10*3/uL [facility] CT ABDOMEN PELVIS WITH IV CO NTRAST [...] is normal. 2. Hepatic steatosis. Workstation ID: [id number] Dictated by: MELINA BAILEY on WedAug 29, 2019 2:37:05 PM EST Transcribed by: MELINA BAILEY on WedAug 29, 2019 2:37:05 PM EST Finalized by: MELINA BAILEY on WedAug 29, 2019 2:37:05 PM EST Normal [facility] Comment on above: Order Comment: Injur y/Trauma [...] is normal. 2. Hepatic steatosis. Workstation ID: [id number] [facility] h 1. Fairly diffuse co lonic wall thickening that may reflect incomplete bowel distention and spasm versus a mild colitis. There is no bowel obstruction. The appendix is normal. 2. Hepatic steatosis. Workstation ID: [id number] [facility] Hepatic Function Panel (LFT) on 08-29-2019 Albumin [Mass/Vol] 3.8 g/dL 3.2 - 5.2 g/dL [facility] ALP [Catalytic activity/Vol] 62 U/L 40 - 14 0 U/L [facility] ALT [Catalytic activity/Vol] 25 U/L 14 - 65 U/L [facility] AST [Catalytic activity/Vol] 21 U/L 0 - 45 U/L [facility] Bilirubin [Mass/Vol] 0.3 mg/dL 0 - 1.3 mg/dL [facility] Bilirubin.conjugated [Mass/Vol] mg/dL 0 - 0.4 mg/dL [facility] Protein [Mass/Vol] 7.6 g/dL 6 - 8 g/dL [facility] alth Lipaseon 08-29-2019 Lipase [Catalytic activity/Vol] 102 U/L 73 - 393 U/L [facility] Otheron 08-29-2019 Extra Tube Hold for add-ons. [place] Comment on above: Auto resulted. Interpretation and review of laboratory results Normal [facility] URINALYSISon 08-29-2019 Bacteria Auto Ql (U) None Seen None Seen /hpf [facility] Bilirubin Ql (U) Negative Negative [facility] Clarity Refractometry automated (U) Clear Clear [facility] Color (U) Colorless Colorless, Yellow [place] Glucose Auto test strip (U) [Mass/Vol] Negative Negative mg/dL [facility] Hemoglobin Auto test strip Ql (U) Large Abnormal Negative [facility] Interpretation and review of laboratory results Abnormal [facility] Ketones (U) [Mass/Vol] Negative Negative mg/d L [facility] Leukocyte esterase Auto test strip Ql (U) Negative Negative [facility] Nitrite Auto test strip Ql (U) Negative Negative [facility] pH (U) 6.0 [pH] [facility] Protein (U) [Mass/Vol] Negative Negative mg/d L [facility] Specific gravity (U) [Rel density] 1.002 Low [facility] Urobilinogen (U) [Mass/Vol] <2.0 <2.0 mg/dL [facility] WBC Auto (Urine sed) [#/Area] <1 [facility] Microscopic examinat ion is performed on all urinalysis samples and only positive findings are reported. The test for blood on the chemical analytic portion of urinalysis may also be positive due to hemoglobinuria and myoglobinuria and if red blood cells are present they are quantified by microscopic examination. [facility] Urine Pregnancyon 08-29-2019 Beta HCG ( test) Ql (U) Urine s pecific gravity less than 1.010 can give a false negative test result. Any specimen with a specific gravity less than 1.010 or collected before the first day of a missed menstrual period should be checked with a serum test. [facility] HCG ( test) Ql (U) Negative Negative [facility] Interpretation and review of laboratory results Normal [facility] Basic Metabolic Panelon 09-26 Calcium mass conc 9.6 mg/dL Normal 8.2-10.2 [facility] Comment on above: Performed By: #### C BC, ETOH, CMP #### [facility] [address] [place] [address] [place] Chloride molar conc 103 mmol/L Normal 95-114 [facility] Comment on above: Performed By: #### C BC, ETOH, CMP #### [facility] [address] [place] [address] [place] CO2 molar conc 24.1 mmol/L Normal 22.0-30.0 [facility] Comment on above: Performed By: #### C BC, ETOH, CMP #### [facility] [address] [id number] [place] Creatinine mass conc 127.8630817401 mg/dL Normal [facility] Comment on above: Result Comment: PERF ORMED BY: [place] [address] PATHOLOGIST [employer] CLAUDIA BAUER M.D. Performed By: #### C BC, ETOH, CMP #### [address] Creatinine mass conc 0.63 mg/dL Normal 0.44-1.03 [facility] Comment on above: Performed By: #### C BC, ETOH, CMP #### [place] [address] [place] Estimated GFR ( Khloe > 60 Normal [facility] Comment on above: Result Comment: GFR estimated reference range: According to KDOQI guidelines, <60 ml/min/1.73m2 is sufficient to diagnose a patient with chronic kidney disease. Performed By: #### C BC, ETOH, CMP #### [place] [address] [place] Estimated GFR (Non- Am > 60 Normal [facility] Comment on above: Performed By: #### C BC, ETOH, CMP #### [place] [address] [place] Glucose mass conc 91 mg/dL Normal 70-100 [facility] Comment on above: Result Comment: [place] om Glucose Reference Range is dependent on time and content of last meal. Glucose of more than 200 mg/dL in a nonstressed, ambulatory subject supports the diagnosis of Diabetes Mellitus. ADA recommended reference range Performed By: #### C BC, ETOH, CMP #### [place] [address] [place] Potassium molar conc 3.9 mmol/L Normal 3.5-5.1 [facility] Comment on above: Performed By: #### C BC, ETOH, CMP #### [place] [address] [place] Sodium molar conc 135 mmol/L Low 136-146 [facility] Comment on above: Performed By: #### C BC, ETOH, CMP #### [place] [address] [place] Urea nitrogen mass conc 4 mg/dL Low 9-23 F [facility] Comment on above: Performed By: #### C BC, ETOH, CMP #### [facility] [address] Hepatic Panelon 10-10-2018 Albumin mass conc 3.5 g/dL Normal 3.2-5.5 [facility] Comment on above: Performed By: #### H EPACLARI, BMP #### [address] Albumin/Globulin mass ratio 1.3 {ratio} Normal [facility] Comment on above: Performed By: #### H EPACLARI, BMP #### [address] ALP enzyme act/vol 72 U/L Normal 32-92 [facility] Comment on above: Performed By: #### H EPACLARI, BMP #### [facility] [address] ALT enzyme act/vol 91 U/L High 10-60 [facility] Comment on above: Performed By: #### H EPACLARI, BMP #### [facility] [address] [place] [address] AST enzyme act/vol 112 U/L High 10-42 [facility] Comment on above: Performed By: #### H EPACLARI, BMP #### [facility] [address] [place] [address] Bilirubin mass conc 0.5 mg/dL Normal 0.3-1.2 [facility] Comment on above: Performed By: #### H EPACLARI, BMP #### [facility] [address] [place] [address] [place] Bilirubin,Indirect 0.3 mg/dL Normal [facility] Comment on above: Performed By: #### H EPATIC, BMP #### [place] [address] [place] Bilirubin.direct mass conc 0.2 mg/dL Normal 0.0-0.4 [facility] Comment on above: Performed By: #### H EPACLARI, BMP #### [facility] [address] Globulin mass conc (S) 2.6 g/dL Normal [facility] Comment on above: Performed By: #### H STEVE BMP #### [facility] [facility] [address] Protein mass conc 6.1 g/dL Normal 6.1-7.9 [facility] Comment on above: Performed By: #### H STEVE, BMP #### [facility] [address] Basic Metabolic Panelon 09-26 Calcium mass conc 9.1 mg/dL Normal 8.2-10.2 [facility] Comment on above: Performed By: #### H STEVE BMP #### [address] Chloride molar conc 108 mmol/L Normal 95-114 [facility] Comment on above: Performed By: #### H STEVE BMP #### [facility] [address] [place] [address] CO2 molar conc 22.8 mmol/L Normal 22.0-30.0 [facility] Comment on above: Performed By: #### H STEVE BMP #### [facility] [address] [place] [address] Creatinine mass conc 0.53 mg/dL Normal 0.44-1.03 [facility] Comment on above: Performed By: #### H STEVE, BMP #### [facility] [address] [place] [address] Creatinine mass conc 167.5934124522 mg/dL Normal [facility] Comment on above: Result Comment: PERF ORMED BY: [place] [address] PATHOLOGIST [employer] CLAUDIA BAUER M.D. Performed By: #### H STEVE BMP #### [facility] [address] [place] [address] [place] Estimated GFR ( Khloe > 60 Normal [facility] Comment on above: Result Comment: GFR estimated reference range: According to KDOQI guidelines, <60 ml/min/1.73m2 is sufficient to diagnose a patient with chronic kidney disease. Performed By: #### H STEVE BMP #### [address] Estimated GFR (Non- Am > 60 Normal [facility] Comment on above: Performed By: #### H STEVE BMP #### [facility] [address] Glucose mass conc 101 mg/dL High 70-100 [facility] Comment on above: Result Comment: [place] om Glucose Reference Range is dependent on time and content of last meal. Glucose of more than 200 mg/dL in a nonstressed, ambulatory subject supports the diagnosis of Diabetes Mellitus. ADA recommended reference range Performed By: #### H STEVE BMP #### [facility] [address] [place] [address] Potassium molar conc 3.2 mmol/L Low 3.5-5.1 [facility] Comment on above: Performed By: #### H STEVE BMP #### [facility] [address] [place] [address] Sodium molar conc 137 mmol/L Normal 136-146 [facility] Comment on above: Performed By: #### H STEVE BMP #### [facility] [address] [place] [address] Urea nitrogen mass conc 3 mg/dL Low 9-23 [facility] Comment on above: Performed By: #### H STEVE BMP #### [facility] [address] [place] [address] [place] Hepatic Panelon 10-09-2018 Albumin mass conc 3.2 g/dL Normal 3.2-5.5 [facility] Comment on above: Performed By: #### H STEVE BMP #### [address] Albumin/Globulin mass ratio 1.2 {ratio} Normal [facility] Comment on above: Performed By: #### H STEVE BMP #### [facility] [address] [place] [address] ALP enzyme act/vol 66 U/L Normal 32-92 [facility] Comment on above: Performed By: #### H STEVE BMP #### [facility] [address] [place] [address] ALT enzyme act/vol 89 U/L High 10-60 [facility] Comment on above: Performed By: #### H STEVE BMP #### [facility] [address] [place] [address] AST enzyme act/vol 156 U/L High 10-42 [facility] Comment on above: Performed By: #### H STEVE BMP #### [facility] [address] [place] [address] Bilirubin mass conc 0.5 mg/dL Normal 0.3-1.2 [facility] Comment on above: Performed By: #### H STEVE BMP #### [facility] [address] [place] [address] Bilirubin,Indirect 0.3 mg/dL Normal [facility] Comment on above: Performed By: #### H STEVE BMP #### [address] Bilirubin.direct mass conc 0.2 mg/dL Normal 0.0-0.4 [facility] Comment on above: Performed By: #### H STEVE BMP #### [facility] [address] [place] [address] Globulin mass conc (S) 2.6 g/dL Normal [facility] Comment on above: Performed By: #### H STEVE BMP #### [facility] [address] [place] [address] Protein mass conc 5.8 g/dL Low 6.1-7.9 [facility] Comment on above: Performed By: #### H STEVE BMP #### [facility] [address] [place] [address] Basic Metabolic Panelon 04- Calcium mass conc 9.2 mg/dL Normal 8.2-10.2 [facility] Comment on above: Performed By: #### H EPATIC, BMP, MG, [id number] #### [facility] [address] Chloride molar conc 105 mmol/L Normal 95-114 [facility] Comment on above: Performed By: #### H EPATIC, BMP, MG, [id number] #### [facility] [address] [place] [address] CO2 molar conc 24.1 mmol/L Normal 22.0-30.0 [facility] Comment on above: Performed By: #### H EPATIC, BMP, MG, [id number] #### [address] Creatinine mass conc 0.54 mg/dL Normal 0.44-1.03 [facility] Comment on above: Performed By: #### H EPATIC, BMP, MG, [id number] #### [address] Creatinine mass conc [id number] mg/dL Normal [facility] Comment on above: Performed By: #### H EPATIC, BMP, MG, [id number] #### [address] Estimated GFR ( Khloe > 60 [facility] Comment on above: Result Comment: GFR estimated reference range: According to KDOQI guidelines, <60 ml/min/1.73m2 is sufficient to diagnose a patient with chronic kidney disease. Performed By: #### H EPATIC, BMP, MG, [id number] #### [facility] [address] [place] [address] Estimated GFR (Non- Am > 60 [facility] Comment on above: Performed By: #### H EPATIC, BMP, MG, [id number] #### [address] Glucose mass conc 68 mg/dL Low 70-100 [facility] Comment on above: Result Comment: [place] om Glucose Reference Range is dependent on time and content of last meal. Glucose of more than 200 mg/dL in a nonstressed, ambulatory subject supports the diagnosis of Diabetes Mellitus. ADA recommended reference range Performed By: #### H EPATIC, BMP, MG, [id number] #### [facility] [address] Potassium molar conc 3.6 mmol/L Normal 3.5-5.1 [facility] Comment on above: Performed By: #### H EPATIC, BMP, MG, [id number] #### [facility] [address] Sodium molar conc 137 mmol/L Normal 136-146 [facility] Comment on above: Performed By: #### H EPATIC, BMP, MG, [id number] #### [facility] [address] Urea nitrogen mass conc 4 mg/dL Low 9-23 [facility] Comment on above: Performed By: #### H EPATIC, BMP, MG, [id number] #### [address] Complete Blood Count Auto Di ffon 10-08-2018 Basophils #/vol (Bld) 0.0 10*3/uL Normal 0.0-0.2 [facility] Comment on above: Result Comment: PERF ORMED BY: [place] [address] PATHOLOGIST [employer] CLAUDIA BAUER M.D. Performed By: #### C BC, ETOH, CMP #### [address] Basophils/100 WBC (Bld) 0.4 % Normal . [facility] Comment on above: Performed By: #### C BC, ETOH, CMP #### [facility] [address] Eosinophils #/vol (Bld) 0.0 10*3/uL Normal 0.0-0.45 [facility] Comment on above: Performed By: #### C BC, ETOH, CMP #### [place] [address] [place] Eosinophils/100 WBC (Bld) 0.4 % Normal . [facility] Comment on above: Performed By: #### C BC, ETOH, CMP #### [address] Erythrocyte distribution wid th Ratio (RBC) 17.0 % High 11.9-15.3 [facility] Comment on above: Performed By: #### C BC, ETOH, CMP #### [address] Hematocrit Volume Fraction (Bld) 40.2 % Normal 34.0-46.4 [facility] Comment on above: Performed By: #### C BC, ETOH, CMP #### [address] Hemoglobin mass conc (Bld) 13.6 g/dL Normal 11.8-15.4 [facility] Comment on above: Performed By: #### C BC, ETOH, CMP #### [address] Lymphocytes #/vol (Bld) 1.2 10*3/uL Normal 1.00-4.8 [facility] Comment on above: Performed By: #### C BC, ETOH, CMP #### [address] Lymphocytes/100 WBC (Bld) 33.3 % Normal . [facility] Comment on above: Performed By: #### C BC, ETOH, CMP #### [address] MCH Entitic mass (RBC) 33.8 g/dL Normal 32.0-35.0 [facility] Comment on above: Performed By: #### C BC, ETOH, CMP #### [address] MCH Entitic mass (RBC) 31.8 pg Normal 24.7-34.3 [facility] Comment on above: Performed By: #### C BC, ETOH, CMP #### [facility] [address] MCV Entitic volume (RBC) 94.1 fL Normal 80-100 [facility] Comment on above: Performed By: #### C BC, ETOH, CMP #### [facility] [address] Monocytes #/vol (Bld) 0.3 10*3/uL Normal 0.0-0.8 [facility] Comment on above: Performed By: #### C BC, ETOH, CMP #### [facility] [address] [place] [address] [place] Monocytes/100 WBC (Bld) 6.8 % Normal . [facility] Comment on above: Performed By: #### C BC, ETOH, CMP #### [facility] [address] Neutrophils #/vol (Bld) 2.2 10*3/uL Normal 1.8-7.7 [facility] Comment on above: Performed By: #### C BC, ETOH, CMP #### [facility] [address] Neutrophils/100 WBC (Bld) 59.1 % Normal . [facility] Comment on above: Performed By: #### C BC, ETOH, CMP #### [facility] [address] [place] [address] [place] Nucleated RBC/100 WBC Ratio (Bld) 0.1 % Normal 0- 0.5 [facility] Comment on above: Performed By: #### C BC, ETOH, CMP #### [facility] [address] [place] [address] [place] Platelet mean volume Entitic volume (Bld) 9.3 fL Normal 6.3-10.7 [facility] Comment on above: Performed By: #### C BC, ETOH, CMP #### [facility] [address] [place] [address] [place] Platelets #/vol (Bld) 52 10*3/uL Low 150-450 [facility] Comment on above: Performed By: #### C BC, ETOH, CMP #### [facility] [address] RBC #/vol (Bld) 4.27 10*6/uL Normal 3.60-5.00 [facility] Comment on above: Performed By: #### C BC, ETOH, CMP #### [facility] [address] WBC #/vol (Bld) 3.7 10*3/uL Low 4.5-11.0 [facility] Comment on above: Performed By: #### C BC, ETOH, CMP #### [facility] [address] Comprehensive Metabolic Pane danitza 10-08-2018 Albumin mass conc 4.4 g/dL Normal 3.2-5.5 [facility] Comment on above: Performed By: #### C BC, ETOH, CMP #### [facility] [address] Albumin/Globulin mass ratio 1.6 {ratio} Normal [facility] Comment on above: Performed By: #### C BC, ETOH, CMP #### [facility] [address] ALP enzyme act/vol 81 U/L Normal 32-92 [facility] Comment on above: Performed By: #### C BC, ETOH, CMP #### [facility] [address] ALT enzyme act/vol 76 U/L High 10-60 [facility] Comment on above: Performed By: #### C BC, ETOH, CMP #### [facility] [address] AST enzyme act/vol 97 U/L High 10-42 [facility] Comment on above: Performed By: #### C BC, ETOH, CMP #### [facility] [address] Bilirubin mass conc 0.7 mg/dL Normal 0.3-1.2 [facility] Comment on above: Performed By: #### C BC, ETOH, CMP #### [address] Calcium mass conc 10.3 mg/dL High 8.2-10.2 [facility] Comment on above: Performed By: #### C BC, ETOH, CMP #### [address] Chloride molar conc 104 mmol/L Normal 95-114 [facility] Comment on above: Performed By: #### C BC, ETOH, CMP #### [address] CO2 molar conc 25.6 mmol/L Normal 22.0-30.0 [facility] Comment on above: Performed By: #### C BC, ETOH, CMP #### [address] Creatinine mass conc 0.62 mg/dL Normal 0.44-1.03 [facility] Comment on above: Performed By: #### C BC, ETOH, CMP #### [address] Creatinine mass conc 128.8218839996 mg/dL [facility] Comment on above: Result Comment: PERF ORMED BY: [place] [address] PATHOLOGIST [employer] CLAUDIA BAUER M.D. Performed By: #### C BC, ETOH, CMP #### [address] Estimated GFR ( Khloe > 60 [facility] Comment on above: Result Comment: GFR estimated reference range: According to KDOQI guidelines, <60 ml/min/1.73m2 is sufficient to diagnose a patient with chronic kidney disease. Performed By: #### C BC, ETOH, CMP #### [address] Estimated GFR (Non- Am > 60 [facility] Comment on above: Performed By: #### C BC, ETOH, CMP #### [address] Globulin mass conc (S) 2.8 g/dL Normal [facility] Comment on above: Performed By: #### C BC, ETOH, CMP #### [facility] [address] Glucose mass conc 95 mg/dL Normal 70-100 [facility] Comment on above: Result Comment: [facility] Glucose Reference Range is dependent on time and content of last meal. Glucose of more than 200 mg/dL in a nonstressed, ambulatory subject supports the diagnosis of Diabetes Mellitus. ADA recommended reference range Performed By: #### C BC, ETOH, CMP #### [facility] [address] Potassium molar conc 4.1 mmol/L Normal 3.5-5.1 [facility] Comment on above: Performed By: #### C BC, ETOH, CMP #### [address] Protein mass conc 7.2 g/dL Normal 6.1-7.9 [facility] Comment on above: Performed By: #### C BC, ETOH, CMP #### [address] Sodium molar conc 140 mmol/L Normal 136-146 [facility] Comment on above: Performed By: #### C BC, ETOH, CMP #### [address] Urea nitrogen mass conc 4 mg/dL Low 9-23 [facility] Comment on above: Performed By: #### C BC, ETOH, CMP #### [facility] [address] [place] [address] Ethyl Alcohol Profileon 09-26 Ethanol mass conc mg/dL Normal [facility] Comment on above: Performed By: #### C BC, ETOH, CMP #### [address] Percent Ethanol Test not performed Normal [facility] Comment on above: Result Comment: PERF ORMED BY: [place] [address] PATHOLOGIST [employer] CLAUDIA BAUER M.D. Performed By: #### C BC, ETOH, CMP #### [facility] [address] [place] [address] Hepatic Panelon 10-08-2018 Albumin mass conc 3.7 g/dL Normal 3.2-5.5 [facility] Comment on above: Performed By: #### H EPATIC, BMP, MG, [id number] #### [facility] [address] [place] [address] Albumin/Globulin mass ratio 1.5 {ratio} Normal [facility] Comment on above: Performed By: #### H EPATIC, BMP, MG, [id number] #### [facility] [address] [place] [address] ALP enzyme act/vol 70 U/L Normal 32-92 [facility] Comment on above: Performed By: #### H EPATIC, BMP, MG, [id number] #### [address] ALT enzyme act/vol 77 U/L High 10-60 [facility] Comment on above: Performed By: #### H EPATIC, BMP, MG, [id number] #### [facility] [address] [place] [address] AST enzyme act/vol 142 U/L High 10-42 [facility] Comment on above: Performed By: #### H EPATIC, BMP, MG, [id number] #### [address] Bilirubin mass conc 0.9 mg/dL Normal 0.3-1.2 [facility] Comment on above: Performed By: #### H EPATIC, BMP, MG, [id number] #### [address] Bilirubin,Indirect 0.7 mg/dL Normal [facility] Comment on above: Performed By: #### H EPATIC, BMP, MG, [id number] #### [address] Bilirubin.direct mass conc 0.2 mg/dL Normal 0.0-0.4 [facility] Comment on above: Performed By: #### H EPATIC, BMP, MG, [id number] #### [facility] [address] [place] [address] Globulin mass conc (S) 2.5 g/dL Normal [facility] Comment on above: Performed By: #### H EPATIC, BMP, MG, [id number] #### [address] Protein mass conc 6.2 g/dL Normal 6.1-7.9 [facility] Comment on above: Performed By: #### H EPATIC, BMP, MG, [id number] #### [address] Magnesiumon 10-08-2018 Magnesium mass conc 1.7 mg/dL Normal 1.6-2.6 [facility] Comment on above: Performed By: #### H EPATIC, BMP, MG, [id number] #### [address] Vit. B12/Folate Profileon Cobalamin (Vitamin B12) mass conc 337 pg/mL Normal 180-914 [facility] Comment on above: Performed By: #### H EPATIC, BMP, MG, [id number] #### [address] Folate 8.9 ng/mL Normal [facility] Comment on above: Result Comment: Shea te reference range: >5.9 ng/ml The WHO technical consultation on folate and vitamin b12 deficiencies has determined that folate concentrations less than 4 ng/ml are considered deficient. PERFORMED BY: [place] [address] PATHOLOGIST [employer] CLAUDIA BAUER M.D. Performed By: #### H EPATIC, BMP, MG, [id number] #### [address] Vital Signs Date Time Vital Sign Value Performing Clinician Facility 05-12-2023 13:48-0500 Respiratory rate 16 /min Neeraj JAEGERMelody [facility] [place] 06-05-2020 12:47-0500 BMI (Body Mass Index) 30.04 kg/m2 Radha iL [facility] 06-05-2020 12:47-0500 Body Temperature 98.8 [degF] [facility] 12:47-0500 Body weight 79.38 kg [facility]-05-2020 12:47-0500 BP Diastolic 79 mm[Hg] [facility] 12:47-0500 BP Systolic 114 mm[Hg] [facility]2020 12:47-0500 [facility]2020 12:47-0500 Pulse (Heart Rate) 118 /min [facility]-05-2020 12:47-0500 Pulse [facility] 95 % [facility] 06-05-2020 12:47-0500 Respiratory Rate 14 /min [facility] 05-21-2020 18:13-0500 BMI (Body Mass Index) 30.04 kg/m2 [facility] 05-21-2020 18:13-0500 Body Temperature 97.9 [degF] [facility] 05-21-2020 18:13-0500 Body weight 79.38 kg [facility] 05-21-2020 18:13-0500 BP Diastolic 88 mm[Hg] [facility] 05-21-2020 18:13-0500 BP Systolic 122 mm[Hg] [facility] 05-21-2020 18:13-0500 Height 162.6 cm [facility] 05-21-2020 18:13-0500 Pulse (Heart Rate) 109 /min [facility] 05-21-2020 18:13-0500 Pulse Oximetry 97 % [facility] 05-21-2020 18:13-0500 Respiratory Rate 18 /min Onofre Rowell [facility] 10-11-2019 14:50-0400 BMI (Body Mass Index) 27.12 kg/m2 [facility] 14:50-0400 Body Temperature 97.5 [degF] [facility] 10-11-2019 14:50-0400 Body weight 71.67 kg [facility] 10-11-2019 14:50-0400 BP Diastolic 70 mm[Hg] [facility] 10-11-2019 14:50-0400 BP Systolic 126 mm[Hg] [facility] 10-11-2019 14:50-0400 Height 162.6 cm [facility] 10-11-2019 14:50-0400 Pulse (Heart Rate) 91 /min [facility] 10-11-2019 14:50-0400 Pulse Oximetry 96 % [facility] 10-11-2019 14:50-0400 Respiratory Rate 16 /min [facility] 10-09-2019 08:38-0400 BMI (Body Mass Index) 27.12 kg/m2 Ollie Feng [facility] 10-09-2019 08:38-0400 Body Temperature 98.1 [degF] Ollie Feng [facility] 10-09-2019 08:38-0400 Body weight 71.67 kg Ollie Feng [facility] 10-09-2019 08:38-0400 BP Diastolic 75 mm[Hg] Ollie Feng [facility] 10-09-2019 08:38-0400 BP Systolic 112 mm[Hg] Ollie Feng [facility] 10-09-2019 08:38-0400 Height 162.6 cm Ollie Feng [facility] 10-09-2019 08:38-0400 Pulse (Heart Rate) 89 /min Ollie Feng [facility] 10-09-2019 08:38-0400 Pulse Oximetry 97 % Ollie Feng [facility] 10-09-2019 08:38-0400 Respiratory Rate 16 /min Ollie Feng [facility] 10-07-2019 13:51-0400 BP Diastolic 83 mm[Hg] Gwendolyn Tee [facility] 10-07-2019 13:51-0400 BP Systolic 110 mm[Hg] [facility] 10-07-2019 13:51-0400 Pulse (Heart Rate) 76 /min [facility] 10-07-2019 13:51-0400 Pulse Oximetry 98 % Gwendolyn [facility] 10-07-2019 13:51-0400 Respiratory Rate 16 /min [facility] 10-07-2019 12:02-0400 Body Temperature 97.5 [degF] [facility] 10-07-2019 11:57-0400 BMI (Body Mass Index) 27.12 kg/m2 [facility]-07-2019 11:57-0400 Body weight 71.67 kg Gwendolyn [facility] 10-07-2019 11:57-0400 Height 162.6 cm Gwendolyn [facility] 08-29-2019 14:15-0500 BP Diastolic 81 mm[Hg] Boonemir Resendiz [facility] 08-29-2019 14:15-0500 BP Systolic 116 mm[Hg] Boonemir Resendiz [facility] 08-29-2019 14:15-0500 Pulse (Heart Rate) 84 /min Boonemir Resendiz [facility] 08-29-2019 14:15-0500 Pulse Oximetry 97 % Boonemir Resendiz [facility] 08-29-2019 13:01-0500 BMI (Body Mass Index) 23.69 kg/m2 Boonemir Resendiz [facility] 08-29-2019 13:01-0500 Body Temperature 98.1 [degF] Boonemir Resendiz [facility] 08-29-2019 13:01-0500 Body weight 62.6 kg Boonemir Resendiz [facility] 08-29-2019 13:01-0500 Height 162.6 cm Boonemir Resendiz [facility] 08-29-2019 13:01-0500 Respiratory Rate 18 /min Boonemir Resendiz [facility] Encounters Encounter Date Encounter Type Care Provider Facility Start: 06-09-2023 End: 06-09-2023 ambulatory DARNELL ZALDIVAR Not Available Start: 06-02-2023 End: 06-03-2023 ambulatory Neeraj MUNOZ Facility: [facility] Start: 06-02-2023 End: 06-02-2023 Patient encounter procedure Neeraj MUNOZ [facility] [place] Start: 05-27-2023 End: 05-28-2023 ambulatory IMTIAZ METZ Not Available Start: 05-18-2023 End: 05-19-2023 ambulatory Neeraj R HEIDEL Facility:[facility] Start: 05-18-2023 End: 05-18-2023 Patient encounter procedure Neeraj Hendrix NILL [facility] [place] Start: 05-12-2023 End: 05-13-2023 ambulatory Neeraj R [...] Start: 10-09-2020 Patient encounter procedure PHYSICIAN SHAHNAZ [facility] Start: 06-12-2020 End: 06-12-2020 Patient encounter procedure HESHAM BARNES [facility] Start: 06-05-2020 End: 06-05-2020 Emergency department patient visit PHYSICIAN SHAHNAZ [facility] Start: 06-05-2020 End: 06-05-2020 Emergency department patient visit Radha iL Work Phone: [facility] Emergency Department Comment on above: COVID-19 virus infec tion (Primary Dx); Nonintractable headache, unspecified chronicity pattern, unspecified headache type; Myalgia; Fatigue, unspecified type Start: 05-21-2020 End: 05-21-2020 Emergency department patient visit PHYSICIAN [facility] Start: 05-21-2020 End: 05-21-2020 Emergency department patient visit Onofre Khoa Rowell Work Phone: [facility] Emergency Department Comment on above: COVID-19 virus infec tion (Primary Dx) Start: 2020 End: 2020 Documentation procedure [facility] Comment on above: No show inital appoi ntment 01/29/2020 Start: 10-11-2019 End: 10-11-2019 Emergency department patient visit PHYSICIAN NO [facility] Start: 10-11-2019 End: 10-11-2019 Emergency department patient visit Radha Li Work Phone: [facility] Emergency Department Comment on above: Wound check, abscess (Primary Dx); Dressing change Start: 10-09-2019 End: 10-09-2019 Emergency department patient visit PHYSICIAN [facility] Start: 10-09-2019 End: 10-09-2019 Emergency department patient visit Ollie Feng Work Phone: [facility] Emergency Department Comment on above: Encounter for rechec k of abscess following incision and drainage (Primary Dx) Start: 10-07-2019 End: 10-07-2019 Emergency department patient visit PHYSICIAN [facility] Start: 10-07-2019 End: 10-07-2019 Emergency department patient visit Gwendolyn Tee Work Phone: [facility] Emergency Department Comment on above: Abscess of left sabrina st (Primary Dx) Start: 08-29-2019 End: 08-29-2019 Emergency department patient visit BOONE RESENDIZ [facility] Start: 08-29-2019 End: 08-29-2019 Emergency department patient visit Boone Resendiz Work Phone: [facility] Emergency Department Comment on above: Nausea and vomiting, intractability of vomiting not specified, unspecified vomiting type (Primary Dx); Epigastric pain; Alcohol abuse Start: 10-08-2018 End: 10-10-2018 Evaluation and management of inpatient Jericho Barreto Facility:[facility] Procedures Date Procedure Procedure Detail Performing [...] Telemedicine 06/12/2020 Telemedicine Primary Care Hesham Barnes, TRUCK BRACER [address] [place] [address] [phone] [facility] Start: 05-22-2020 End: 05-22-2020 Office Visit 05/22/2020 Office Visit Obstetrics and Gynecology Franklyn Gabriel MD [address] [place] [address] [phone] [facility] Start: 02-27-2020 Influenza vaccination given Sequential Influenza Vaccine (#1) [facility] Start: 02-26-2019 Influenza vaccination given Sequential Influenza Vaccine (#1) [facility] Start: 2005 Hepatitis C antibody, confirmatory test Hepatitis C Screening [facility] Start: 2002 HIV screening HIV Screening [facility] Start: 1999 Adolescent depression screening assessment Depression Screening (PHQ9) [facility] Start: 1990 History and physical examination, annual for health maintenance Wellness Visit [facility] Start: 1987 Depression screening using PHQ-9 (Patient Health Questionnaire 9) score Depression Screening (PHQ9) [facility] Start: 1987 Screening for malignant neoplasm of cervix Pap Smear [facility] Start: 1987 Tetanus vaccination Tetanus: Every 10yrs [facility] End: 10-07-2019 Aerobic microbial culture Wound Aerobic Culture Microbiology Routine Once for 1 Occurrences starting 10/07/2019 until 10/07/2019 [facility] Comment on above: Once for 1 Occurrenc es starting 10/07/2019 until 10/07/2019 Aerobic microbial culture Wound Aerobic Culture Microbiology Routine 10/07/2019 1:30 PM EDT [facility] End: 10-07-2019 Wound Anaerobic Culture Wound Anaerobic Culture Microbiology Routine Once for 1 Occurrences starting 10/07/2019 until 10/07/2019 [facility] Comment on above: Once for 1 Occurrenc es starting 10/07/2019 until 10/07/2019 Wound Anaerobic Culture Wound An aerobic Culture Microbiology Routine 10/07/2019 1:30 PM EDT [facility] Immunizations Immunization Date Immunization Notes Care Provider Ceasar cotto NEGATED: Highlighted row has not occurred!05-12-2023 influenza virus vaccine, unspecified formulation Neeraj MUNOZ [facility] [place] Payers Date Payer Category Payer Unknown [id number] 2019 Private Health Insurance CIG[employer] C IGNA CHOICE FUND-ANY CHOICE FUND [id number] 2019-Present [id number] 2019 Private Health Insurance [id number] 2018 Medicaid [employer] MEDICA[employer] [place] [employer] [id number] 2018-Present [id number] 2018 Private Health Insurance xxx [id number] 2018 Self-pay 2018 Unknown [id number] 2015 Unknown [id number] 1987 Unknown [id number] 2.840.1.036484.3.579.2. 1987 Unknown [id number] 2.16840.1.263413.3.579.2 1987 Unknown [id number] 2.16840.1.362751.3.579.2. 1987 Unknown [id number] 2.16840.1.018282.3.579.2. 1987 Unknown [id number] 2.16.840.1.022205.3.579.2. 90 1987 Unknown [id number] 2.16840.1.537298.3.579.2. 903 1987 Unknown [id number] 2.16.840.1.130054.3.579.2. 903 1987 Unknown [id number] 2.16.840.1.453043.3.579.2. 903 1987 Unknown [id number] 2.16.840.1.625421.3.579.2. 593 1987 Unknown [id number] 2.16.840.1.400694.3.579.2. 593 1987 Unknown [id number] 2.16.840.1.002688.3.579.2. 593 1987 Unknown [id number] 2.16.840.1.409373.3.579.2. 593 1987 Unknown [id number] 2.16.840.1.187507.3.579.2. 593 1987 Unknown [id number] 2.16.840.1.605975.3.579.2. 727 1987 Unknown [id number] 2.16.840.1.557789.3.579.2. 727 1987 Unknown [id number] 2.16.840.1.361698.3.579.2. 727 1987 Unknown [id number] 2.16.840.1.349846.3.579.2. 727 1987 Unknown [id number] 2.16.840.1.967682.3.579.2. 727 1987 Unknown [id number] 2.16.840.1.803665.3.579.2. 1259 1987 Unknown [id number] 2.16.840.1.552331.3.579.2. 1259 1959 Private Health Insurance [id number] 1959 Unknown [id number] Unknown [id number] 2.16.840.1.183386.3.579.2. 531 Social History Date Type Detail Facility Start: 08-29-2019 End: 06-05-2020 Tobacco smoking status NHIS Current every day smoker [facility] History of tobacco use Cigarette [facility] Start: 08-29-2019 End: 06-05-2020 Cigarettes smoked current (pack per day) - Reported [facility] Start: 08-29-2019 End: 06-05-2020 Alcohol intake Current drinker of alcohol (finding) [facility] Start: 08-29-2019 Alcohol [facility]igned At [facility] Start: 10-07-2019 Alcohol Comment socially [place] Exposure to SARS-CoV -2 (event) Unable to assess [facility] Start: 05-21-2020 End: 06-05-2020 Tobacco use and exposure Never used [facility] Exposure to SARS-CoV -2 (event) Yes [facility] Start: 05-12-2023 Tobacco smoking status Heavy t obacco smoker (finding) [facility] [place] Tobacco smoking status Never [facility] [place] Sex Assigned At Female [facility] Functional Status Date Assessment Result Facility 05-12-2023 Functional Status N/A [facility] [place] Evaluation + Plan note Note Date & Type Note Facility Evaluation + Plan note Future Appointments Appointment Date:05/18/2023 01:00:00 PM Scheduled Provider:Neeraj MUNOZ MD Location:[facility] Appointment Type: Post Op 15 [facility] [place] Hospital course Narrative Note Date & Type Note Facility Hospital course Narrative No data available for this section [facility] [place] [facility] Discharge instructions Note Date & Type Note Facility Hospital Discharge instructions No data available for this section [facility] Progress note Note Date & Type Note Facility Progress note No data available for this section [facility] [place] Summary Purpose Family History No Family History Records FoundNo Family History Records FoundNo Family History Records FoundNo Family History Records Found No data available for this section No data available for this section No data available for this section No Family History Records FoundNo Family History Records Found Advance Directives No Advanced Directives Records FoundDocuments on File Type Date Recorded 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 Advance Directives and Livin g Will 08/29/2019 1:59 PM Documents on File Type Date Recorded 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 Advance Directives and Livin g Will 10/07/2019 12:14 PM Documents on File Type Date Recorded 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 * Abdominal Pain (Azerbaijani) * Nausea and Vomiting (Azerbaijani) documented in this encounter* Attachments The following attachments cannot be sent through Care Everywhere. * Abscess: Skin (Azerbaijani) documented in this encounter* Attachments The following attachments cannot be sent through Care Everywhere. * Abscess: Skin (Azerbaijani) documented in this encounter* Attachments The following attachments cannot be sent through Care Everywhere. * Abscess: Skin (Azerbaijani) documented in this encounter* Instructions* Ajay Duran PA-C - 05/21/2020 Stay home and away from other people. Rest, fluids, Tylenol. Return for difficulty breathing, uncontrolled fevers, or any other problems or concerns. You did test positive for COVID-19 today. * Attachments The following attachments cannot be sent through Care Everywhere. * COVID-19 SELF ISOLATION DISCHARGE INSTRUCTIONS * Coronavirus Disease (COVID-19): General Info (Azerbaijani) documented in this encounter* Attachments The following attachments cannot be sent through Care Everywhere. * Fatigue (Azerbaijani) * Coronavirus Disease (COVID-19): General Info (Azerbaijani) * COVID-19: Taking Care of Yourself If You Have It: Video (Azerbaijani) * Myalgia (Azerbaijani) documented in this encounter Assessments Diagnosis Nausea [...] section and content) DATE CREATED AUTHOR 10/10/2018 [facility] DATE CREATED AUTHOR AUTHOR'S ORGANIZ ATION 06/13/2020 [facility] DATE CREATED AUTHOR AUTHOR'S ORGANIZ ATION 10/09/2020 [facility] DATE CREATED AUTHOR AUTHOR'S ORGANIZ ATION 12/17/2021 [facility] DATE CREATED AUTHOR AUTHOR'S ORGANIZ ATION 06/07/2023 [facility] DATE CREATED AUTHOR AUTHOR'S ORGANIZ ATION 06/11/2023 [facility] dicdc Specialists [facility] Reason for Visit (unrecogniz ed section [...] ED Notes (unrecognized secti on and content) [facility] ED Physician Note: NAME: Shannan Carter 34 y.o. CSN: [id number] PCP: Physician No Clinical Impression: 1. Nausea [...] for 10 days . Follow-up Information 1. [facility] - Primary Care Services. Why: Recheck of todays complaint [address] [facility] [address] 2. Miguel Sarkar III, MD. Specialties: General Surgery, Interventional Radiology, Breast Surgery Why: Recheck of todays complaint [address] [place] [address] 3. [facility] Emergency Department. Specialty: Emergency Medicine Why: If symptoms worsen [address] [place] [address] Contact information for after-discharge care Follow-up information [...] file Gets together: Not on file Attends restoration service: Not on file Active member of [...] Abnormal; Notable for the following components: Specific [place] 1.002 (*) Blood, Urine Large (*) All [...] Procedure Abnormality Status --------- ------ CBC Auto Differential[[id number]] Abnormal Final result Please view results for these tests on the individual orders. CT Abdomen Pelvis With IV Contrast Only Final Result 1. Fairly diffuse colonic wall thickening that may reflect incomplete bowel distention and spasm versus a mild colitis. There is no bowel obstruction. The appendix is normal. 2. Hepatic steatosis. Workstation ID: [id number] Procedures: Procedures ED Course/ Medical Decision Making: [...] hypertension. . Ajay Duran PA-C ED Physician Telephone Service Adviser [facility] Emergency Department (Please note that portions of this note have been completed with a voice recognition software. Efforts were made to correct any errors, but occasionally words are mis-transcribed.) Ajay Duran PA-C 08/29/19 1511 Also reports that she went on an alcohol binge last weekend which flared it up. Pt reports Its my pancreas. States she is usually seen at [facility] and recently moved here, has a history of pancreatitis. documented in this encounter Associated Order(s): Incision/Drainage [facility] ED Physician Note: NAME: Shannan Carter 34 y.o. CSN: [id number] PCP: Physician No Chief Complaint: Abscess Clinical [...] or uses a tobacco product, I did intake counselor them on benefits and resources of [...] Take with food . Follow-up Information 1. [facility] - Primary Care Services. Why: for symptom reheck [address] [facility] [address] 2. [facility] Emergency Department. Specialty: Emergency Medicine Why: If symptoms worsen [address] [place] [address] Contact information for after-discharge care Follow-up information [...] of the left breast surrounding her area [place]. Patient reports associated drainage. Denies any fever, [...] immunocompromised or diabetic. History provided by: Patient parts interpreter used: No Abscess Associated symptoms: no fever, [...] file Gets together: Not on file Attends restoration service: Not on file Active member of [...] expedite correspondence this note was generated by [employer] voice recognition software. Some grammatical or spelling errors may occur using the system. ARI López, ENP-C ED Nurse Practitioner [facility] Emergency Department (Please note that portions of this note have been completed with a voice recognition software. Efforts were made to correct any errors, but occasionally words are mis-transcribed.) Maria Elena West CNP 10/07/19 1439 Patient states, I had one here before 2 or 3 years ago. Patient states, I have an abscess on my boob. documented in this encounter [facility] ED Physician Note: NAME: Shannan Carter 34 y.o. CSN: [id number] PCP: Physician No ED Course / Medical [...] file Gets together: Not on file Attends restoration service: Not on file Active member of [...] Drainage from breat noted think and pus-like [facility] ED Physician Note: NAME: Shannan Carter 34 y.o. CSN: [id number] PCP: Physician No ED Course / Medical [...] does lift heavy boxes. Recommend follow-up with [facility] in a week for recheck. Clinical Impression: [...] file Gets together: Not on file Attends restoration service: Not on file Active member of [...] hypertension. . This chart was documented with YouMailation system. There may be spelling errors as a result. Colin Loaiza PA-C [facility] Emergency Department (Please note that portions [...] I came here. documented in this encounter [facility] ED Physician Note: NAME: Shannan Carter 35 y.o. CSN: [id number] PCP: Physician No Clinical Impression: 1. COVID-19 virus infection Disposition: Patient is being discharged to home Follow-up Information 1. [facility]. Why: Recheck of todays complaint [address] [facility] [address] [phone] 2. [facility] Emergency Department. Specialty: Emergency Medicine Why: If symptoms worsen [address] [facility] [address] Contact information for after-discharge care Follow-up information [...] file Gets together: Not on file Attends restoration service: Not on file Active member of [...] at the following links: For Healthcare Providers: https://www.fda.gov/media/422940/download For Patients: https://www.fda.gov/media/785803/download No orders to display Procedures: Procedures ED [...] hypertension. . Ajay Duran PA-C ED Physician Telephone Service Adviser [facility] Emergency Department (Please note that portions of this note have been completed with a voice recognition software. Efforts were made to correct any errors, but occasionally words are mis-transcribed.) Ajay Duran PA-C 05/21/201903 Pt presents to ED with c/o cough and fatigue that started Wednesday. Pt states that she lives with someone who is positive for covid documented in this encounter [facility] ED Physician Note: NAME: Shannan Carter 35 y.o. CSN: [id number] PCP: Physician No Clinical Impression: 1. COVID-19 [...] printed (June 12 at 2 pm) [address] [facility] [address] Contact information for after-discharge care Follow-up information [...] to Toradol IM, I spoke with social work job titles who arranged for an outpatient appointment with her urgently, neuro exam is nonfocal, she is making informed decision. I discussed with the patient supportive care, signs to return to ED, infectious/neuro warning signs, follow up with pcp; questions answered; patient understands and agrees with plan; . . If patient is currently a smoker or uses a tobacco product, I did intake counselor them on benefits and resources of [...] file Gets together: Not on file Attends restoration service: Not on file Active member of [...] Procedures: Procedures Radha Li DO ED Physician [facility] Emergency Department Radha Li DO 06/05/20 [...] vomiting Boone Resendiz MD ED Attending Physician [facility] Emergency Department documented in this encounter ED [...] Personnel Name: Ashlyn Potter DO Address: [facility] [address] Personnel Name: Ashlyn Potter DO Address: Address: [facility], [address] Personnel Name: Ashlyn Potter DO Address: Address: [facility], [address] FOR RECORDS PERTAINING TO PATIENTS WHO [...] BE BASED ON THE PRIMARY CLINICAL RECORDS. [facility] listedplaces [facility]. provides no warranty or guarantee of the accuracy or completeness of information in this document.
== END 2023-06-04 13:58 | disposition home or self-care (01) ==
LOC: ER 12:16 → MS 14:07
PROVIDERS: Surgery; Admitting Provider Internal Medicine; Emergency Provider Emergency Medicine; Visit Provider Nurse Practitioner
PROC: (CPT 19020; principal; 2023-06-03 14:40)
DX: N61.1 Abscess of the breast and nipple (principal); B95.7 Other staphylococcus as the cause of diseases classified elsewhere; F17.210 Nicotine dependence, cigarettes, uncomplicated; F12.90 Cannabis use, unspecified, uncomplicated
CPT/HCPCS: 19020; 36415; 76642; 80053; 80202; 83605; 84703; 85025; 87040; 87070; 87150; 87186; 96365; 96366; 96367; 96368; 96375; 96376; 99285; G0378; J1170; J2704; J3370

== ENCOUNTER 2023-06-25 07:30 | Outpatient (RCR) | payer OTHER, SELFPAY ==
--- NOTE | 2023-06-08 13:40 | PC.NURSE ---
Arrival ambulatory for dressing change. rt breast dressing being held intact with sports bra. packing at 8-9 oclock position, wetted packing with nss. approximately 4.5 feet of packing removed from wound. Irrigated with normal saline. Wound 5 cm deep, packed wound with 1/2 inch iodaform gauze, covered with 4x4 and abd. (surrounding tissue around wound covered with skin prep. Has area around 200pm position where skin open and weeping. encouraged to keep tape from skin. Released ambulatory.
[2023-06-09 11:19] VITALS: BP 108/73; PULSE 89; RESP 16; TEMP 36.6; O2SAT 98
--- NOTE | 2023-06-09 11:40 | PC.NURSE ---
1105: Pt. to [facility] for daily dressing change. Old dressing and packing to right breast removed. Inner portion of dressing and packing with mod. amount serosang. drainage. Pt. c/o pain at site. Rates when packing being removed and re-packed. Depth of wound approximately 2.5 inches. Wound bed beefy red with no active drainage noted. Edges of wound not well defined. Wound bed flushed with saline. Packed with approximately 24 inches of 1/4 inch iodoform packing. Covered with sterile 4x4 and ABD. Secured in place using pt.'s sports bra due to irritation to surrounding skin from adhesive tape. Pt. c/o pain with re-packing. Eases when completed. VSS. 1115: D/c'd to home amb.
[2023-06-10 11:09] VITALS: BP 109/73; PULSE 86; RESP 18; TEMP 36.3; O2SAT 99
--- NOTE | 2023-06-10 11:09 | PC.NURSE ---
Pt here for dressing change, I removed her old dressing from her right breast. I irrigated the wound with nss, her wound bed looks beefy red. I packed this with iodoform, covered with a 2x2 gauze and covered with an ABD. She tolerated this well and vital signs are stable. Pt discharged home at 1120.
--- NOTE | 2023-06-11 12:12 | PC.NURSE ---
1108: Pt. to [facility] amb. Seated in recliner. Old dressing to right breast removed with small amount serosang. drainage observed. Packing from wound removed with mod. to large amount serosang. drainage. Wound bed beefy red with edges well defined. Flushed with saline irrigant and packed with approximately 9-10 inches of 1/4 iodoform packing. Covered with 4x4 and ABD dressing. Pt. tolerated with minimal c/o discomfort. 1115: D/c'd amb. to home.
--- NOTE | 2023-06-12 11:16 | PC.NURSE ---
Patients dressing removed over the right breast. 4x4 gauze has scant amount of serous drainage. 2 pieces of packing removed. Irrigated wound with normal saline and re-packed wound with 1 piece of 1/2 iodoform gauze and covered with a 4x4 gauze and then a full abd. Patient requested that the abd is not to be taped to the skin due to irritation. Patient tolerated the dressing change well. Patient had no questions and left by herself.
[2023-06-14 10:55] VITALS: BP 108/67; PULSE 88; RESP 18; TEMP 36.3; O2SAT 97
--- NOTE | 2023-06-14 11:09 | PC.NURSE ---
10:55: Pt arrived, seated in recliner. Pt states her wound is starting to feel better. Old dressing removed from her right breast with minimal drainage. Flushed with saline, wound edges are well defined, red, beefy. After this was irrigated with normal saline, iodoform was packed into right breast wound, 4x4 gauze, and covered with an ABD. Patient tolerated this well and states she had minimal pain. 11:07: Patient was discharged home ambulatory.
[2023-06-15 11:05] VITALS: BP 97/65; PULSE 78; RESP 18; O2SAT 95
--- NOTE | 2023-06-15 11:28 | PC.NURSE ---
11:05 Patient is here for dressing change to her right breast. I removed her old dressing and her packing was bloody, I irrigated this with normal saline and she tolerated well. She states this is starting to itch and her pain is improving. I packed her wound with 1/2 iodoform packing, covered with a 4x4, and a 4x4 drain sponge in replacement of an ABD. She tolerated this well and denies any complaints. Vitals were stable. 11:18 Patient was discharged ambulatory.
[2023-06-16 11:00] VITALS: BP 111/78; PULSE 74; RESP 18; O2SAT 97
--- NOTE | 2023-06-16 11:13 | PC.NURSE ---
11:00 Pt is here for dressing change on her right breast, I removed her old dressing and her iodoform was blood tinged. I irrigated the wound with normal saline, wound edges are beefy red. She states the area is improving and pain is decreasing. After irrigation, I packed the wound with 1/2 iodoform, covered with 4x4 gauze, and an ABD. She tolerated this well. 11:10 vitals obtained and normal, pt was discharged home ambulatory.
[2023-06-17 10:10] VITALS: BP 129/78; PULSE 79; RESP 18; O2SAT 98
--- NOTE | 2023-06-17 10:27 | PC.NURSE ---
Pt is here for wound dressing change on her right breast. I removed the old packing which was blood tinged. I measured the wound which was 2cm in depth, I irrigated the wound with normal saline, then was packed with 1/2 iodoform, covered with 4x4 gauze and an ABD. Patient tolerated well, vital signs were stable. She denies any other issues or complaints. Patient was discharged home.
--- NOTE | 2023-06-18 11:16 | PC.NURSE ---
Addendum entered by Lance Donnelly RN 06/18/23 11:22: Wound is on lateral aspect of areola on rt breast Original Note: 1055 Arrival ambulatory. Alert oriented. patient had showered prior to arrival. wound on rt breast medial aspect of areola. packing removed, wound appears clean small amount of mainly sero sang drainage on packing skin surrounding wound clean dry and intact, wound bed beefy red. Measurements as follow: wound opening 3 mm from left to right, 1.3 cm from top to bottom. 3 cm in depth. irrigated wound with NSS with syringe, repacked with1/2 in iodaform gauze, covered with 4x4 and abd. dressing held in place with bra. patient tolerated well. 1105 Released ambulatory.
--- NOTE | 2023-06-19 11:37 | PC.NURSE ---
old iodoform gauze removed and had small george/bloody drng noted. Wound irrigated with NS and then repacked with 1/2 iodoform strip, approx 5 inches. Covered with 4x4 gauze. Pt tolerated with no c/o pain or discomfort.
--- NOTE | 2023-06-20 14:13 | PC.NURSE ---
Removed old dressing, irrigated with NS, packed with iodoform gauze, covered with ABD. Pt tolerated well. Denied any pain.
--- NOTE | 2023-06-23 11:37 | PC.NURSE ---
1123: [facility] for daily dressing change. Seated in recliner. Dressing removed from right breast. Packing removed. Both with small amount serosanguineous drainage noted. Wound measured at 1cm in length, 2cm deep, and 1cm wide. Open wound flushed with saline. Packed with approximately 3 iodoform. Covered with 4x4 and ABD dressing. Secured in place with bra. Pt. tolerated with no c/o. 1135: Pt. d/c'd amb to home.
[2023-06-24 09:00] VITALS: BP 116/85; PULSE 93; RESP 18; TEMP 36.9; O2SAT 96
--- NOTE | 2023-06-24 09:16 | PC.NURSE ---
Patient is here for dressing change on her right breast. Her dressing was already removed by her PCP this morning. I irrigated the area with normal saline and had some bloody discharge from the area. I packed with 1/2 iodoform, covered it with 4x4 gauze and an ABD. She tolerated this well. Vital signs are stable, she was discharged home ambulatory.
--- NOTE | 2023-06-25 11:45 | PC.NURSE ---
1105: Pt. in for daily dressing change. Dressing over right breast dry. Packing removed from breast wound with small amount serosanguineous drainage notes. Flushed with saline. Wound to right breast measures less than 1cm deep. This RN spoke with Dr. Nowak 06/24/23 on phone regarding patient wound status, and he stated may d/c dressing changes once wound is 1cm deep. Pt. instructed to keep area clean and dry and keep covered with ABD dressing secured in place with bra. Also instructed pt. to return to [facility] if changes in wound status occur. Pt. relays understanding. 1115: Pt. d/c'd amb. to home.
== END 2023-06-27 23:59 | disposition home or self-care (01) ==
LOC: INF 07:30
PROVIDERS: Visit Provider Internal Medicine
DX: N61.0 Mastitis without abscess (principal)

== ENCOUNTER 2023-07-07 20:38 | Outpatient (REF) | payer OTHER, SELFPAY ==
--- OUTSIDE RECORDS SUMMARY | 2023-07-07 20:43 | XMS_ITS | CCD ---
Author Name Unknown Address [id number] [place] [address] Organization [facility] Care Team Providers Care Design Engineer Name Role Phone Jericho Barreto Attending Unavailable [...] Attending Unavailable NILL, Neeraj Hendrix Attending Unavailable CUTLER, DARNELL Oliver Attending Unavailable JAGDISHIMTIAZ VILLAGRAN Attending Unavailable CUTLER, DARNELL Oliver Attending Unavailable Allergies Allergy Classification Reported Allergen(s) Allergy Type Date of Onset Reaction(s) Facility (11 sources) Penicillins; Translations: [PENICILLINS] Drug allergy (disorder) 8 [facility] Repository (5 sources) Penicillin; Translations: [penicillin] Drug Allergy [facility] Repository (3 sources) Tape 1 Propensity to adverse reactions to substance Redness, Itching [facility] Comment on above: plastic tape (1 source) Adhesive Tape; Translations: [Tape] Propensity to adverse reactions (disorder) [facility] Repository Medications Current Medications Medication Drug [...] Results Test Name Value Interpretation Reference Range Facility [facility] 06-07-2023 Lab Reports [id number]#1 .00TIFF Normal [facility] 06-05-2023 Lab Reports [id number]#1 .00TIFF Normal [facility] 06-04-2023 Lab Reports [id number]#1 .00TIFF Normal [facility] Lab Reports [id number]#1 .00TIFF Normal [facility] Ambulatory Visit Summaryon 1 07-18-2022 Ambulatory [...] for choosing us for your care. Normal [facility] General Surgery Office/Clini c Noteon 05-18-2023 General Surgery Office/Clinic Note Chief Complaint post operative follow up HPI Staff 18 day post operative follow up post I/D left breast abscess. Completing daily dressing changes at [facility]. Reports moderate intermittent discomfort, taking Ibuprofen [...] inactivated - Not Given Patient Refuses Normal [facility] Comment on above: Result Comment: Elec tronically [...] dressing changes daily at infusion center at [facility]; completed course of antibiotics; taking ibuprofen [...] continue daily dressing changes; f/u next week; elsia likely require scar revision if areolar skin [...] inactivated - Not Given Patient Refuses Normal [facility] Comment on above: Result Comment: Elec tronically Signed By: TAMMY DELGADO, Neeraj Hendrix\.br\Date and Time Signed: 05/13/23 19:09 EST Ambulatory Visit Summaryon 1 07-12-2022 Ambulatory Visit Summary SHANNAN LOPEZ :1985 Visit Date:05/12/2023 Ambulatory Visit Instructions Your Care Team Attending Physician - Neeraj MUNOZ MD Primary Care Physician - Potter DO, Ashlyn D Procedures Performed section, section, Mastotomy with drainage [...] for choosing us for your care. Normal [facility] Report[facility] 05-11-2023 Lab Reports [id number]#1. 00TIFF [facility] Pathology Noteon 05-10-2023 Pathology Note [id number]#1 .00TIFF [facility] Consultation Noteon 05-05-20 Consultation Note [id number]#1 .00TIFF [facility] Consultation Note [id number]#1 .00TIFF [facility] Operative Reporton Operative Report [id number]#1 .00TIFF [facility] Consultation Noteon 05-04-20 Consultation Note [id number]#1 .00TIFF [facility] ED Note-Physicianon 05-04-20 ED Note-Physician [id number]#1 .00TIFF [facility] ED Note-Physician [id number]#1 .00TIFF Normal [facility] AMMONIAon 10-12-2021 Ammonia (P) [Moles/Vol] 21 umol/L Normal 11-32 [facility] Comment on above: Performed By: #### P TT, PT #### [facility] [address] [place] [address] Dr. Celi Guerin AMYLASEon 10-12-2021 Amylase [Catalytic activity/Vol] 535 U/L Critically high 25-115 [facility] Comment on above: Result Comment: repe ated Performed By: #### C MP, LIPA, ASHLYN #### [facility] [address] [place] [address] Dr. Celi Guerin CBC AUTO DIFFon 10-12-2021 BASO # 0.0 103/ul Normal 0.0-0.1 [facility] Comment on above: Performed By: #### P TT, PT #### [facility] [address] [place] [address] Dr. Celi Guerin Basophils/100 WBC (Bld) 0.1 % Critically low 0.2-2.0 [facility] Comment on above: Performed By: #### P TT, PT #### [facility] [address] [place] [address] Dr. Celi Guerin EO # 0.0 103/ul Normal 0.0-0.7 [facility] Comment on above: Performed By: #### P TT, PT #### [facility] [address] [place] [address] Dr. Celi Guerin Eosinophils/100 WBC (Bld) 0.4 % Critically low 0.9-7.0 [facility] Comment on above: Performed By: #### P TT, PT #### [facility] [address] [place] [address] Dr. Celi Guerin Erythrocyte distribution width (RBC) [Ratio] 18.6 % Critically high 11.0-15.0 [facility] Comment on above: Performed By: #### P TT, PT #### [facility] [address] [place] [address] Dr. Celi Guerin Hematocrit (Bld) [Volume fraction] 29.3 % Critically low 36.0-48.0 [facility] Comment on above: Performed By: #### P TT, PT #### [facility] [address] [place] [address] Dr. Celi Guerin Hemoglobin (Bld) [Mass/Vol] 9.4 g/dL Critically low 12.0-16.0 [facility] Comment on above: Performed By: #### P TT, PT #### [facility] [address] [address] [address] Celi Guerin IG # 0.04 10e3/ul Critically high 0.00-0.03 [facility] Comment on above: Performed By: #### P TT, PT #### [facility] [address] [place] [address] Dr. Celi Guerin IG % 0.5 % Normal 0.0-0.5 [facility] Comment on above: Performed By: #### P TT, PT #### [facility] [address] [place] [address] Dr. Celi Guerin LYMPH # 1.1 103/ul Critically low 1.2-3.8 [facility] Comment on above: Performed By: #### P TT, PT #### [facility] [address] [place] [address] Dr. Celi Guerin Lymphocytes/100 WBC (Bld) 14.2 % Critically low 20.5-60.0 [facility] Comment on above: Performed By: #### P TT, PT #### [facility] [address] [place] [address] Dr. Celi Guerin MANUAL DIFF REQ NO Normal [facility] Comment on above: Performed By: #### P TT, PT #### [facility] [address] [place] [address] Dr. Celi Guerin MCH (RBC) [Entitic mass] 25.8 pg Critically low 26.7-34.0 [facility] Comment on above: Performed By: #### P TT, PT #### [facility] [address] [place] [address] Dr. Celi Guerin MCHC (RBC) [Mass/Vol] 32.1 g/dL Normal 29.9-35.2 [facility] Comment on above: Performed By: #### P TT, PT #### [facility] [address] [place] [address] Dr. Celi Guerin MCV (RBC) [Entitic vol] 80.5 fL Critically low 81.0-99.0 [facility] Comment on above: Performed By: #### P TT, PT #### [facility] [address] [place] [address] Dr. Celi Guerin MONO # 0.7 103/ul Normal 0.3-0.8 [facility] Comment on above: Performed By: #### P TT, PT #### [facility] [address] [place] [address] Dr. Celi Guerin Monocytes/100 WBC (Bld) 8.4 % Normal 1.7-12.0 [facility] Comment on above: Performed By: #### P TT, PT #### [facility] [address] [place] [address] Dr. Celi Guerin NEUT # 5.9 103/ul Normal 1.4-6.5 [facility] Comment on above: Performed By: #### P TT, PT #### [facility] [address] [place] [address] Dr. Celi Guerin Neutrophils/100 WBC (Bld) 76.4 % Critically high 43.0-75.0 [facility] Comment on above: Performed By: #### P TT, PT #### [facility] [address] [place] [address] Dr. Celi Guerin PLT 63 103/ul Critically low 150-450 [facility] Comment on above: Performed By: #### P TT, PT #### [facility] [address] [place] [address] Dr. Celi Guerin RBC 3.64 106/ul Critically low 4.20-5.40 [facility] Comment on above: Performed By: #### P TT, PT #### [facility] [address] [place] [address] Dr. Celi Guerin WBC 7.8 103/ul Normal 4.0-11.0 [facility] Comment on above: Performed By: #### P TT, PT #### [facility] [address] [place] [address] Dr. Celi Guerin LIPASEon 10-12-2021 Lipase [Catalytic activity/Vol] U/L Critically high 23.0-300.0 [facility] Comment on above: Result Comment: repe ated Performed By: #### E UYRI ESTRELLARO #### [facility] [address] [place] [address] Dr. Celi Guerin PROF 14(COMP METB)on 022 Albumin [Mass/Vol] 2.9 g/dL Critically low 3.4-5.0 [facility] Comment on above: Performed By: #### C MP, LIPA, ASHLYN #### [facility] [address] [place] [address] Dr. Celi Guerin Albumin/Globulin [Mass ratio] 1.0 {ratio} Normal [facility] Comment on above: Performed By: #### C MP, LIPA, ASHLYN #### [facility] [address] [place] [address] Dr. Celi Guerin ALP [Catalytic activity/Vol] 88 U/L Normal 46-116 [facility] Comment on above: Performed By: #### C MP, LIPA, ASHLYN #### [facility] [address] [place] [address] Dr. Celi Guerin ALT [Catalytic activity/Vol] 34 U/L Normal 14-59 [facility] Comment on above: Performed By: #### C MP, LIPA, ASHLYN #### [facility] [address] [address] [address] Celi Guerin Anion gap [Moles/Vol] 12.9 mmol/L Normal [facility] Comment on above: Performed By: #### C MP, LIPA, ASHLYN #### [facility] [address] [place] [address] Dr. Celi Guerin AST [Catalytic activity/Vol] 70 U/L Critically high 15-37 [facility] Comment on above: Performed By: #### C MP LIPA, ASHLYN #### [facility] [address] [place] [address] Dr. Celi Guerin Bilirubin [Mass/Vol] 1.2 mg/dL Normal 0.2-1.3 [facility] Comment on above: Performed By: #### C MP LIPA, ASHLYN #### [facility] [address] [place] [address] Dr. Celi Guerin Calcium [Mass/Vol] 7.4 mg/dL Critically low 8.5-10.1 [facility] Comment on above: Performed By: #### C ANTWAN LIPA, ASHLYN #### [facility] [address] [place] [address] Dr. Celi Guerin Chloride [Moles/Vol] 98 mmol/L Normal 98-107 [facility] Comment on above: Performed By: #### C ANTWAN LIPA, ASHLYN #### [facility] [address] [place] [address] Dr. Celi Guerin CO2 [Moles/Vol] 23.9 mmol/L Normal 22.0-30.0 [facility] Comment on above: Performed By: #### C ANTWAN LIPA, ASHLYN #### [facility] [address] [place] [address] Dr. Celi Guerin Creatinine [Mass/Vol] 0.41 mg/dL Critically low 0.52-1.04 [facility] Comment on above: Performed By: #### C ANTWAN LIPA, ASHLYN #### [facility] [address] [place] [address] Dr. Celi Guerin EGFR-AF MALAYSIAN >60 Normal >=60 [facility] Comment on above: Performed By: #### C ANTWAN LIPA, ASHLYN #### [facility] [address] [place] [address] Dr. Celi Guerin EGFR-NON AF MALAYSIAN >60 Normal >=60 [facility] Comment on above: Performed By: #### C ANTWAN LIPA, ASHLYN #### [facility] [address] [place] [address] Dr. Celi Guerin Globulin (S) [Mass/Vol] 2.9 g/dL Normal [facility] Comment on above: Performed By: #### C EDE MONCADA, ASHLYN #### [facility] [address] [address] [address] Celi Guerin Glucose [Mass/Vol] 82 mg/dL Normal 74-106 [facility] Comment on above: Performed By: #### C EDE MONCADA, ASHLYN #### [facility] [address] [place] [address] Dr. Celi Guerin Potassium [Moles/Vol] 2.8 mmol/L Critically low 3.4-5.0 [facility] Comment on above: Result Comment: repe ated Performed By: #### C EDE MONCADA, ASHLYN #### [facility] [address] [place] [address] Dr. Celi Guerin Protein [Mass/Vol] 5.8 g/dL Critically low 6.1-8.2 [facility] Comment on above: Performed By: #### C EDE MONCADA, ASHLYN #### [facility] [address] [place] [address] Dr. Celi Guerin Sodium [Moles/Vol] 131 mmol/L Critically low 137-145 [facility] Comment on above: Performed By: #### C EDE MONCADA, ASHLYN #### [facility] [address] [place] [address] Dr. Celi Guerin Urea nitrogen [Mass/Vol] 2.0 mg/dL Critically low 7.0-18.0 [facility] Comment on above: Performed By: #### C EDE MONCADA, ASHLYN #### [facility] [address] [place] [address] Dr. Celi Guerin Urea nitrogen/Creatinine [Mass ratio] 4.9 mg/mg Normal [facility] Comment on above: Performed By: #### C PRIYANKA MONCADAA, ASHLYN #### [facility] [address] [place] [address] Dr. Celi Guerin AMMONIAon 10-11-2021 Ammonia (P) [Moles/Vol] 23 umol/L Normal 11-32 [facility] Comment on above: Performed By: #### D RUGRPD #### [facility] [address] [place] [address] Dr. Celi Guerin AMYLASEon 10-11-2021 Amylase [Catalytic activity/Vol] 1078 U/L Critically high 25-115 [facility] Comment on above: Result Comment: repe ated Performed By: #### D RUGRPD #### [facility] [address] [place] [address] Dr. Celi Guerin CBC AUTO DIFFon 10-11-2021 BASO # 0.0 103/ul Normal 0.0-0.1 [facility] Comment on above: Performed By: #### P TT, PT #### [facility] [address] [place] [address] Dr. Celi Guerin Basophils/100 WBC (Bld) 0.1 % Critically low 0.2-2.0 [facility] Comment on above: Performed By: #### P TT, PT #### [facility] [address] [place] [address] Dr. Celi Guerin EO # 0.0 103/ul Normal 0.0-0.7 [facility] Comment on above: Performed By: #### P TT, PT #### [facility] [address] [place] [address] Dr. Celi Guerin Eosinophils/100 WBC (Bld) 0.1 % Critically low 0.9-7.0 [facility] Comment on above: Performed By: #### P TT, PT #### [facility] [address] [place] [address] Dr. Celi Guerin Erythrocyte distribution width (RBC) [Ratio] 18.5 % Critically high 11.0-15.0 [facility] Comment on above: Performed By: #### P TT, PT #### [facility] [address] [place] [address] Dr. Celi Guerin Hematocrit (Bld) [Volume fraction] 33.2 % Critically low 36.0-48.0 [facility] Comment on above: Performed By: #### P TT, PT #### [facility] [address] [place] [address] Dr. Celi Guerin Hemoglobin (Bld) [Mass/Vol] 10.5 g/dL Critically low 12.0-16.0 [facility] Comment on above: Performed By: #### P TT, PT #### [facility] [address] [place] [address] Dr. Celi Guerin IG # 0.03 10e3/ul Normal 0.00-0.03 [facility] Comment on above: Performed By: #### P TT, PT #### [facility] [address] [place] [address] Dr. Celi Guerin IG % 0.4 % Normal 0.0-0.5 [facility] Comment on above: Performed By: #### P TT, PT #### [facility] [address] [place] [address] Dr. Celi Guerin LYMPH # 0.8 103/ul Critically low 1.2-3.8 [facility] Comment on above: Performed By: #### P TT, PT #### [facility] [address] [place] [address] Dr. Celi Guerin Lymphocytes/100 WBC (Bld) 10.6 % Critically low 20.5-60.0 [facility] Comment on above: Performed By: #### P TT, PT #### [facility] [address] [place] [address] Dr. Celi Guerin MANUAL DIFF REQ NO Normal [facility] Comment on above: Performed By: #### P TT, PT #### [facility] [address] [place] [address] Dr. Celi Guerin MCH (RBC) [Entitic mass] 25.9 pg Critically low 26.7-34.0 [facility] Comment on above: Performed By: #### P TT, PT #### [facility] [address] [place] [address] Dr. Celi Guerin MCHC (RBC) [Mass/Vol] 31.6 g/dL Normal 29.9-35.2 [facility] Comment on above: Performed By: #### P TT, PT #### [facility] [address] [address] [address] Celi Guerin MCV (RBC) [Entitic vol] 82.0 fL Normal 81.0-99.0 [facility] Comment on above: Performed By: #### P TT, PT #### [facility] [address] [address] [address] Celi Guerin MONO # 0.4 103/ul Normal 0.3-0.8 [facility] Comment on above: Performed By: #### P TT, PT #### [facility] [address] [place] [address] Dr. Celi Guerin Monocytes/100 WBC (Bld) 5.6 % Normal 1.7-12.0 [facility] Comment on above: Performed By: #### P TT, PT #### [facility] [address] [place] [address] Dr. Celi Guerin NEUT # 6.4 103/ul Normal 1.4-6.5 [facility] Comment on above: Performed By: #### P TT, PT #### [facility] [address] [place] [address] Dr. Celi Guerin Neutrophils/100 WBC (Bld) 83.2 % Critically high 43.0-75.0 [facility] Comment on above: Performed By: #### P TT, PT #### [facility] [address] [place] [address] Dr. Celi Guerin Platelet mean volume (Bld) [Entitic vol] 11.9 fL Normal 9.5-13.5 [facility] Comment on above: Performed By: #### P TT, PT #### [facility] [address] [address] [address] Celi Guerin PLT 59 103/ul Critically low 150-450 [facility] Comment on above: Performed By: #### P TT, PT #### [facility] [address] [place] [address] Dr. Celi Guerin RBC 4.05 106/ul Critically low 4.20-5.40 [facility] Comment on above: Performed By: #### P TT, PT #### [facility] [address] [place], [place] [address] Dr. Celi Guerin WBC 7.7 103/ul Normal 4.0-11.0 [facility] Comment on above: Performed By: #### P TT, PT #### [facility] [address] [place], [place] [address] ABD/PELVIS WO CONon [...] RADHA RINALDI Date: 2021-10-11 09:36 Normal [facility] CT HEAD WO CONon 10-11-2021 CT [...] by: OSMIN MICHAEL Date: 2021-10-11 09:38 Normal [facility] LIPASEon 10-11-2021 Lipase [Catalytic activity/Vol] U/L Critically high 23.0-300.0 [facility] Comment on above: Result Comment: repe ated Performed By: #### D RUGRPD #### [facility] [address] [place] [address] Dr. Celi Guerin MAGNESIUMon 10-11-2021 Magnesium [Mass/Vol] 1.7 mg/dL Normal 1.6-2.3 [facility] Comment on above: Performed By: #### P TT, PT #### [facility] [address] [place] [address] Dr. Celi Guerin PHOSPHORUSon 10-11-2021 Phosphate [Mass/Vol] 1.5 mg/dL Critically low 2.5-4.5 [facility] Comment on above: Performed By: #### P TT, PT #### [facility] [address] [place] [address] Dr. Celi Guerin PROF 14(COMP METB)on 022 Albumin [Mass/Vol] 3.0 g/dL Critically low 3.4-5.0 [facility] Comment on above: Performed By: #### P TT, PT #### [facility] [address] [place] [address] Dr. Celi Guerin Albumin/Globulin [Mass ratio] 1.0 {ratio} Normal [facility] Comment on above: Performed By: #### P TT, PT #### [facility] [address] [place] [address] Dr. Celi Guerin ALP [Catalytic activity/Vol] 78 U/L Normal 46-116 [facility] Comment on above: Performed By: #### P TT, PT #### [facility] [address] [address] [address] Celi Guerin ALT [Catalytic activity/Vol] 31 U/L Normal 14-59 [facility] Comment on above: Performed By: #### P TT, PT #### [facility] [address] [address] [address] Celi Guerin Anion gap [Moles/Vol] 16.8 mmol/L Normal [facility] Comment on above: Performed By: #### P TT, PT #### [facility] [address] [address] [address] Celi Guerin AST [Catalytic activity/Vol] 48 U/L Critically high 15-37 [facility] Comment on above: Performed By: #### P TT, PT #### [facility] [address] [address] [address] Celi Guerin Bilirubin [Mass/Vol] 1.1 mg/dL Normal 0.2-1.3 [facility] Comment on above: Performed By: #### P TT, PT #### [facility] [address] [address] [address] Celi Guerin Calcium [Mass/Vol] 7.6 mg/dL Critically low 8.5-10.1 [facility] Comment on above: Performed By: #### P TT, PT #### [facility] [address] [address] [address] Celi Guerin Chloride [Moles/Vol] 97 mmol/L Critically low 98-107 [facility] Comment on above: Performed By: #### P TT, PT #### [facility] [address] [address] [address] Celi Guerin CO2 [Moles/Vol] 22.3 mmol/L Normal 22.0-30.0 [facility] Comment on above: Performed By: #### P TT, PT #### [facility] [address] [address] [address] Celi Guerin Creatinine [Mass/Vol] 0.39 mg/dL Critically low 0.52-1.04 [facility] Comment on above: Performed By: #### P TT, PT #### [facility] [address] [address] [address] Celi Guerin EGFR-AF MALAYSIAN >60 Normal >=60 [facility] Comment on above: Performed By: #### P TT, PT #### [facility] [address] [address] [address] Celi Guerin EGFR-NON AF MALAYSIAN >60 Normal >=60 [facility] Comment on above: Performed By: #### P TT, PT #### [facility] [address] [address] [address] Celi Guerin Globulin (S) [Mass/Vol] 3.1 g/dL Normal [facility] Comment on above: Performed By: #### P TT, PT #### [facility] [address] [place] [address] Dr. Celi Guerin Glucose [Mass/Vol] 63 mg/dL Critically low 74-106 [facility] Comment on above: Performed By: #### P TT, PT #### [facility] [address] [address] [address] Celi Guerin Potassium [Moles/Vol] 3.1 mmol/L Critically low 3.4-5.0 [facility] Comment on above: Performed By: #### P TT, PT #### [facility] [facility] [address] [place] [address] Dr. Celi Guerin Protein [Mass/Vol] 6.1 g/dL Normal 6.1-8.2 [facility] Comment on above: Performed By: #### P TT, PT #### [facility] [address] [place] [address] Dr. Celi Guerin Sodium [Moles/Vol] 133 mmol/L Critically low 137-145 [facility] Comment on above: Performed By: #### P TT, PT #### [facility] [address] [address] [address] Celi Guerin Urea nitrogen [Mass/Vol] 3.0 mg/dL Critically low 7.0-18.0 [facility] Comment on above: Performed By: #### P TT, PT #### [facility] [address] [place] [address] Dr. Celi Guerin Urea nitrogen/Creatinine [Mass ratio] 7.7 mg/mg Normal [facility] Comment on above: Performed By: #### P TT, PT #### [facility] [address] [place] [address] Dr. Celi Guerin AMMONIAon 10-10-2021 Ammonia (P) [Moles/Vol] 39 umol/L Critically high 11-32 [facility] Comment on above: Performed By: #### E RUR, UMICRO #### [facility] [address] [place] [address] Dr. Celi Guerin AMYLASEon 10-10-2021 Amylase [Catalytic activity/Vol] 892 U/L Critically high 25-115 [facility] Comment on above: Result Comment: Test Repeated. Critical ValueVerified Performed By: #### D RUGRPD #### [facility] [address] [place] [address] Dr. Celi Guerin CBC AUTO DIFFon 10-10-2021 BASO # 0.0 103/ul Normal 0.0-0.1 [facility] Comment on above: Performed By: #### P TT, PT #### [facility] [address] [place] [address] Dr. Celi Guerin Basophils/100 WBC (Bld) 0.2 % Normal 0.2-2.0 [facility] Comment on above: Performed By: #### P TT, PT #### [facility] [address] [place] [address] Dr. Celi Guerin EO # 0.0 103/ul Normal 0.0-0.7 [facility] Comment on above: Performed By: #### P TT, PT #### [facility] [address] [place] [address] Dr. Celi Guerin Eosinophils/100 WBC (Bld) 0.0 % Critically low 0.9-7.0 [facility] Comment on above: Performed By: #### P TT, PT #### [facility] [address] [place] [address] Dr. Celi Guerin Erythrocyte distribution width (RBC) [Ratio] 18.2 % Critically high 11.0-15.0 [facility] Comment on above: Performed By: #### P TT, PT #### [facility] [address] [place] [address] Dr. Celi Guerin Hematocrit (Bld) [Volume fraction] 32.8 % Critically low 36.0-48.0 [facility] Comment on above: Performed By: #### P TT, PT #### [facility] [address] [place] [address] Dr. Celi Guerin Hemoglobin (Bld) [Mass/Vol] 10.2 g/dL Critically low 12.0-16.0 [facility] Comment on above: Performed By: #### P TT, PT #### [facility] [address] [place] [address] Dr. Celi Guerin IG # 0.04 10e3/ul Critically high 0.00-0.03 [facility] Comment on above: Performed By: #### P TT, PT #### [facility] [address] [place] [address] Dr. Celi Guerin IG % 0.7 % Critically high 0.0-0.5 [facility] Comment on above: Performed By: #### P TT, PT #### [facility] [address] [place] [address] Dr. Celi Guerin LYMPH # 0.9 103/ul Critically low 1.2-3.8 [facility] Comment on above: Performed By: #### P TT, PT #### [facility] [address] [place] [address] Dr. Celi Guerin Lymphocytes/100 WBC (Bld) 15.4 % Critically low 20.5-60.0 [facility] Comment on above: Performed By: #### P TT, PT #### [facility] [address] [place] [address] Dr. Celi Guerin MANUAL DIFF REQ NO Normal [facility] Comment on above: Performed By: #### P TT, PT #### [facility] [address] [place] [address] Dr. Celi Guerin MCH (RBC) [Entitic mass] 26.0 pg Critically low 26.7-34.0 [facility] Comment on above: Performed By: #### P TT, PT #### [facility] [address] [place] [address] Dr. Celi Guerin MCHC (RBC) [Mass/Vol] 31.1 g/dL Normal 29.9-35.2 [facility] Comment on above: Performed By: #### P TT, PT #### [facility] [address] [place] [address] Dr. Celi Guerin MCV (RBC) [Entitic vol] 83.5 fL Normal 81.0-99.0 [facility] Comment on above: Performed By: #### P TT, PT #### [facility] [address] [place] [address] Dr. Celi Guerin MONO # 0.4 103/ul Normal 0.3-0.8 [facility] Comment on above: Performed By: #### P TT, PT #### [facility] [address] [place] [address] Dr. Celi Guerin Monocytes/100 WBC (Bld) 7.5 % Normal 1.7-12.0 [facility] Comment on above: Performed By: #### P TT, PT #### [facility] [address] [place] [address] Dr. Celi Guerin NEUT # 4.5 103/ul Normal 1.4-6.5 [facility] Comment on above: Performed By: #### P TT, PT #### [facility] [address] [place] [address] Dr. Celi Guerin Neutrophils/100 WBC (Bld) 76.2 % Critically high 43.0-75.0 [facility] Comment on above: Performed By: #### P TT, PT #### [facility] [address] [place] [address] Dr. Celi Guerin Platelet mean volume (Bld) [Entitic vol] 10.6 fL Normal 9.5-13.5 [facility] Comment on above: Performed By: #### P TT, PT #### [facility] [address] [place] [address] Dr. Celi Guerin PLT 53 103/ul Critically low 150-450 [facility] Comment on above: Performed By: #### P TT, PT #### [facility] [address] [address] [address] Celi Guerin RBC 3.93 106/ul Critically low 4.20-5.40 [facility] Comment on above: Performed By: #### P TT, PT #### [facility] [address] [place] [address] Dr. Celi Guerin WBC 5.9 103/ul Normal 4.0-11.0 [facility] Comment on above: Performed By: #### P TT, PT #### [facility] [address] [place] [address] Dr. Celi Guerin DRUG SCREEN RAPID (URINE)on 10-10-2021 AMP Negative Normal NEGATIVE [facility] Comment on above: Performed By: #### D RUGRPD #### [facility] [address] [place] [address] Dr. Celi Guerin BAR Positive Abnormal NEGATIVE [facility] Comment on above: Performed By: #### D RUGRPD #### [facility] [address] [place] [address] Dr. Celi Guerin BUP Negative Normal NEGATIVE [facility] Comment on above: Performed By: #### D RUGRPD #### [facility] [address] [place] [address] Dr. Celi Guerin BZO Positive Abnormal NEGATIVE [facility] Comment on above: Performed By: #### D RUGRPD #### [facility] [address] [place] [address] Dr. Celi Guerin REED Negative Normal NEGATIVE [facility] Comment on above: Performed By: #### D RUGRPD #### [facility] [address] [place] [address] Dr. Celi Guerin CUT-OFFS SEE BELOW Normal [facility] Comment on above: Result Comment: AMP (Amphetamine): 500ng/mL, BAR (Barbituates): 200 ng/mL, BZO (Benzodiazepines): 150 ng/mL, BUP (Buprenorphine): 10 ng/mL, REED (Cocaine): 150 ng/mL, mAMP (Methamphetamine): 500 ng/mL, MTD (Methadone): 200 ng/mL, OPI (Opiates): 100 ng/mL, OXY (Oxycodone): 100 ng/mL, PCP (Phencyclidine): 25 ng/mL, PPX (Propoxyphene): 300 ng/mL, THC (Cannabinoids): 50 ng/mL, TCA (Trycyclic Antidepressants): 300 ng/mL Performed By: #### D RUGRPD #### [facility] [address] [place] [address] Dr. Celi Guerin DRUG CUT HEADER DRUG CLASS TEST SYSTEM CUT-OFF CONCENTRATIONS ARE FOLLOWS: Normal [facility] Comment on above: Performed By: #### D RUGRPD #### [facility] [address] [place] [address] Dr. Celi Guerin mAMP Negative Normal NEGATIVE [facility] Comment on above: Performed By: #### D RUGRPD #### [facility] [address] [place] [address] Dr. Celi Guerin MTD Negative Normal NEGATIVE [facility] Comment on above: Performed By: #### D RUGRPD #### [facility] [address] [place] [address] Dr. Celi Guerin OPI Positive Abnormal NEGATIVE [facility] Comment on above: Performed By: #### D RUGRPD #### [facility] [address] [place] [address] Dr. Celi Guerin OXY Negative Normal NEGATIVE [facility] Comment on above: Performed By: #### D RUGRPD #### [facility] [address] [place] [address] Dr. Celi Guerin PCP Negative Normal NEGATIVE [facility] Comment on above: Performed By: #### D RUGRPD #### [facility] [address] [place] [address] Dr. Celi Guerin PPX Negative Normal NEGATIVE [facility] Comment on above: Performed By: #### D RUGRPD #### [facility] [address] [address] [address] Celi Guerin TCA Negative Normal NEGATIVE [facility] Comment on above: Performed By: #### D RUGRPD #### [facility] [address] [place] [address] Dr. Celi Guerin THC Positive Abnormal NEGATIVE [facility] Comment on above: Performed By: #### D RUGRPD #### [facility] [address] [place] [address] Dr. Celi Guerin ER URINE PROFILEon 2 Bilirubin Ql (U) Negative Normal NEGATIVE [facility] Comment on above: Performed By: #### P TT, PT #### [facility] [address] [place] [address] Dr. Celi Guerin Clarity (U) CLEAR Normal CLEAR [facility] Comment on above: Performed By: #### P TT, PT #### [facility] [address] [place] [address] Dr. Celi Guerin Color (U) YELLOW Normal YELLOW [facility] Comment on above: Performed By: #### P TT, PT #### [facility] [address] [place] [address] Dr. Celi LUCAS A micrscopic examination will be performed if indicated. Normal [facility] Comment on above: Performed By: #### P TT, PT #### [facility] [address] [place] [address] Dr. Celi Guerin Glucose Ql (U) Negative Normal NEGATIVE [facility] Comment on above: Performed By: #### P TT, PT #### [facility] [address] [place] [address] Dr. Celi Guerin Hemoglobin Ql (U) MODERATE Abnormal NEGATIVE [facility] Comment on above: Performed By: #### P TT, PT #### [facility] [address] [place] [address] Dr. Celi Guerin Ketones Ql (U) 15 mg/dl Abnormal NEGATIVE [facility] Comment on above: Performed By: #### P TT, PT #### [facility] [address] [place] [address] Dr. Celi Guerin LEUKOCYTES Negative Normal NEGATIVE [facility] Comment on above: Performed By: #### P TT, PT #### [facility] [address] [place] [address] Dr. Celi Guerin Nitrite Ql (U) Negative Normal NEGATIVE [facility] Comment on above: Performed By: #### P TT, PT #### [facility] [address] [place] [address] Dr. Celi Guerin pH (U) 6.0 [pH] Normal 5-9 [facility] Comment on above: Performed By: #### P TT, PT #### [facility] [address] [place] [address] Dr. Celi Guerin Protein (U) [Mass/Vol] 30 mg/dL Abnormal NEGATIVE/ TRACE [facility] Comment on above: Performed By: #### P TT, PT #### [facility] [address] [place] [address] Dr. Celi Guerin SPEC GRAVITY 1.025 Normal 1.005-<=1.025 [facility] Comment on above: Performed By: #### P TT, PT #### [facility] [address] [place] [address] Dr. Celi Guerin UR MICRO IND INDICATED Normal [facility] Comment on above: Performed By: #### P TT, PT #### [facility] [address] [place] [address] Dr. Celi Guerin Urobilinogen Qn (U) 0.2 {Irlanda'U}/dL Normal 0.2 - 1. 0 [facility] Comment on above: Performed By: #### P TT, PT #### [facility] [address] [place] [address] Dr. Celi Guerin LIPASEon 10-10-2021 Lipase [Catalytic activity/Vol] U/L Critically high 23.0-300.0 [facility] Comment on above: Performed By: #### D RUGRPD #### [facility] [address] [address] [address] Celi Guerin PROF 14(COMP METB)on 022 Albumin [Mass/Vol] 3.4 g/dL Normal 3.4-5.0 [facility] Comment on above: Performed By: #### D RUGRPD #### [facility] [address] [place] [address] Dr. Celi Guerin Albumin/Globulin [Mass ratio] 1.1 {ratio} Normal [facility] Comment on above: Performed By: #### D RUGRPD #### [facility] [address] [place] [address] Dr. Celi Guerin ALP [Catalytic activity/Vol] 81 U/L Normal 46-116 [facility] Comment on above: Performed By: #### D RUGRPD #### [facility] [address] [place] [address] Dr. Celi Guerin ALT [Catalytic activity/Vol] 36 U/L Normal 14-59 [facility] Comment on above: Performed By: #### D RUGRPD #### [facility] [address] [place] [address] Dr. Celi Guerin Anion gap [Moles/Vol] 13.4 mmol/L Normal [facility] Comment on above: Performed By: #### D RUGRPD #### [facility] [address] [place] [address] Dr. Celi Guerin AST [Catalytic activity/Vol] 53 U/L Critically high 15-37 [facility] Comment on above: Performed By: #### D RUGRPD #### [facility] [address] [place] [address] Dr. Celi Guerin Bilirubin [Mass/Vol] 1.1 mg/dL Normal 0.2-1.3 [facility] Comment on above: Performed By: #### D RUGRPD #### [facility] [address] [place] [address] Dr. Celi Guerin Calcium [Mass/Vol] 7.7 mg/dL Critically low 8.5-10.1 [facility] Comment on above: Performed By: #### D RUGRPD #### [facility] [address] [address] [address] Celi Guerin Chloride [Moles/Vol] 98 mmol/L Normal 98-107 [facility] Comment on above: Performed By: #### D RUGRPD #### [facility] [address] [address] [address] Celi Guerin CO2 [Moles/Vol] 27.3 mmol/L Normal 22.0-30.0 [facility] Comment on above: Performed By: #### D RUGRPD #### [facility] [address] [address] [address] Celi Guerin Creatinine [Mass/Vol] 0.38 mg/dL Critically low 0.52-1.04 [facility] Comment on above: Performed By: #### D RUGRPD #### [facility] [address] [place] [address] Dr. Celi Guerin EGFR-AF MALAYSIAN >60 Normal >=60 [facility] Comment on above: Performed By: #### D RUGRPD #### [facility] [address] [address] [address] Celi Guerin EGFR-NON AF MALAYSIAN >60 Normal >=60 [facility] Comment on above: Performed By: #### D RUGRPD #### [facility] [address] [place] [address] Dr. Celi Guerin Globulin (S) [Mass/Vol] 3.1 g/dL Normal [facility] Comment on above: Performed By: #### D RUGRPD #### [facility] [address] [address] [address] Celi Guerin Glucose [Mass/Vol] 94 mg/dL Normal 74-106 [facility] Comment on above: Performed By: #### D RUGRPD #### [facility] [address] [place] [address] Dr. Celi Guerin Potassium [Moles/Vol] 3.7 mmol/L Normal 3.4-5.0 [facility] Comment on above: Performed By: #### D RUGRPD #### [facility] [address] [place] [address] Dr. Celi Guerin Protein [Mass/Vol] 6.5 g/dL Normal 6.1-8.2 [facility] Comment on above: Performed By: #### D RUGRPD #### [facility] [address] [place] [address] Dr. Celi Guerin Sodium [Moles/Vol] 135 mmol/L Critically low 137-145 [facility] Comment on above: Performed By: #### D RUGRPD #### [facility] [address] [place] [address] Dr. Celi Guerin Urea nitrogen [Mass/Vol] 6.0 mg/dL Critically low 7.0-18.0 [facility] Comment on above: Performed By: #### D RUGRPD #### [facility] [address] [place] [address] Dr. Celi Guerin Urea nitrogen/Creatinine [Mass ratio] 15.8 mg/mg Normal [facility] Comment on above: Performed By: #### D RUGRPD #### [facility] [address] [place] [address] Dr. Celi Guerin URINE MICROSCOPIC ONLYon BACTERIA TRACE Abnormal NONE SEEN [facility] Comment on above: Performed By: #### P TT, PT #### [facility] [address] [place] [address] Dr. Celi Guerin Bacteria identified Cx Nom (U) NOT INDICATED Normal [facility] Comment on above: Performed By: #### P TT, PT #### [facility] [address] [place] [address] Dr. Celi Guerin CAST NONE SEEN Normal NONE SEEN [facility] Comment on above: Performed By: #### P TT, PT #### [facility] [address] [place] [address] Dr. Celi Guerin Crystals LM Nom (Urine sed) NONE SEEN Normal NONE SEEN [facility] Comment on above: Performed By: #### P TT, PT #### [facility] [address] [place] [address] Dr. Celi Guerin Epithelial cells LM Ql (Urine sed) FEW Abnormal NONE SEEN /RARE [facility] Comment on above: Performed By: #### P TT, PT #### [facility] [address] [place] [address] Dr. Celi Guerin MUCOUS SMALL Abnormal NONE SEEN [facility] Comment on above: Performed By: #### P TT, PT #### [facility] [address] [place] [address] Dr. Celi Guerin RBC 5-10 Abnormal 0-2 [facility] Comment on above: Performed By: #### P TT, PT #### [facility] [address] [place] [address] Dr. Celi Guerin WBC 0-2 Abnormal NONE SEEN [facility] Comment on above: Performed By: #### P TT, PT #### [facility] [address] [place] [address] Dr. Celi Guerin CBC AUTO DIFFon 10-09-2021 BASO # 0.0 103/ul Normal 0.0-0.1 [facility] Comment on above: Performed By: #### E SAMEER UMICRO #### [facility] [address] [place] [address] Dr. Celi Guerin Basophils/100 WBC (Bld) 0.1 % Critically low 0.2-2.0 [facility] Comment on above: Performed By: #### E RUR UMICRO #### [facility] [address] [place] [address] Dr. Celi Guerin EO # 0.0 103/ul Normal 0.0-0.7 [facility] Comment on above: Performed By: #### E RUR UMICRO #### [facility] [address] [place] [address] Dr. Celi Guerin Eosinophils/100 WBC (Bld) 0.1 % Critically low 0.9-7.0 [facility] Comment on above: Performed By: #### E RUR UMICRO #### [facility] [address] [place] [address] Dr. Celi Guerin Erythrocyte distribution width (RBC) [Ratio] 18.5 % Critically high 11.0-15.0 [facility] Comment on above: Performed By: #### ARTEMIO GOMEZ #### [facility] [address] [place] [address] Dr. Celi Guerin Hematocrit (Bld) [Volume fraction] 36.0 % Normal 36.0-48.0 [facility] Comment on above: Performed By: #### YURI GOMEZRO #### [facility] [address] [place] [address] Dr. Celi Guerin Hemoglobin (Bld) [Mass/Vol] 11.3 g/dL Critically low 12.0-16.0 [facility] Comment on above: Performed By: #### ARTEMIO GOMEZ #### [facility] [address] [place] [address] Dr. Celi Guerin IG # 0.06 10e3/ul Critically high 0.00-0.03 [facility] Comment on above: Performed By: #### YURI GOMEZRO #### [facility] [address] [place] [address] Dr. Celi Guerin IG % 0.8 % Critically high 0.0-0.5 [facility] Comment on above: Performed By: #### YURI GOMEZRO #### [facility] [address] [place] [address] Dr. Celi Guerin LYMPH # 1.5 103/ul Normal 1.2-3.8 [facility] Comment on above: Performed By: #### YURI GOMEZRO #### [facility] [address] [place] [address] Dr. Celi Guerin Lymphocytes/100 WBC (Bld) 19.3 % Critically low 20.5-60.0 [facility] Comment on above: Performed By: #### YURI GOMEZRO #### [facility] [address] [place] [address] Dr. Celi Guerin MANUAL DIFF REQ NO Normal [facility] Comment on above: Performed By: #### YURI GOMEZRO #### [facility] [address] [place] [address] Dr. Celi Guerin MCH (RBC) [Entitic mass] 25.7 pg Critically low 26.7-34.0 [facility] Comment on above: Performed By: #### E RUR, UMICRO #### [facility] [address] [place] [address] Dr. Celi Guerin MCHC (RBC) [Mass/Vol] 31.4 g/dL Normal 29.9-35.2 [facility] Comment on above: Performed By: #### E RUR, UMICRO #### [facility] [address] [place] [address] Dr. Celi Guerin MCV (RBC) [Entitic vol] 81.8 fL Normal 81.0-99.0 [facility] Comment on above: Performed By: #### E SAMEER, UMICRO #### [facility] [address] [place] [address] Dr. Celi Guerin MONO # 0.6 103/ul Normal 0.3-0.8 [facility] Comment on above: Performed By: #### E SAMEER, UMICRO #### [facility] [address] [place] [address] Dr. Celi Guerin Monocytes/100 WBC (Bld) 7.9 % Normal 1.7-12.0 [facility] Comment on above: Performed By: #### E LUCEROR, UMICRO #### [facility] [address] [place] [address] Dr. Celi Guerin NEUT # 5.6 103/ul Normal 1.4-6.5 [facility] Comment on above: Performed By: #### E RUR, UMICRO #### [facility] [address] [place] [address] Dr. Celi Guerin Neutrophils/100 WBC (Bld) 71.8 % Normal 43.0-75.0 [facility] Comment on above: Performed By: #### E RUR, UMICRO #### [facility] [address] [place] [address] Dr. Celi Guerin Platelet mean volume (Bld) [Entitic vol] 10.3 fL Normal 9.5-13.5 [facility] Comment on above: Performed By: #### ARTEMIO GOMEZ #### [facility] [address] [address] [address] Celi Guerin PLT 78 103/ul Critically low 150-450 [facility] Comment on above: Performed By: #### ARTEMIO GOMEZ #### [facility] [address] [address] [address] Celi Guerin RBC 4.40 106/ul Normal 4.20-5.40 [facility] Comment on above: Performed By: #### ARTEMIO GOMEZ #### [facility] [address] [address] [address] Celi Guerin WBC 7.8 103/ul Normal 4.0-11.0 [facility] Comment on above: Performed By: #### ARTEMIO GOMEZ #### [facility] [address] [address] [address] Celi Guer[facility]26 SARS-CoV-2 (COVID-19) RNA LIBERTAD+probe Ql (Unsp spec) Not detected Normal NOT DETECTED [facility] Comment on above: Result Comment: When [...] for this test is supported by the Grocery Manager of Health and Human Service's declaration that [...] Performed By: #### P TT, PT #### [facility] [address] [place] [address] Dr. Celi Guerin ETHANOL (BLD ALC)on 10-10-19 22 ALC NOTE NOTE: 80 mg/dl is th e legal limit for a blood alcohol level Normal [facility] Comment on above: Performed By: #### P TT, PT #### [facility] [address] [place] [address] Dr. Celi Guerin Ethanol [Mass/Vol] 26 mg/dL Normal [facility] Comment on above: Performed By: #### P TT, PT #### [facility] [address] [place] [address] Dr. Celi Guerin LIPASEon 10-09-2021 Lipase [Catalytic activity/Vol] U/L Critically high 23.0-300.0 [facility] Comment on above: Performed By: #### P TT, PT #### [facility] [address] [place] [address] Dr. Celi Guerin PROF 14(COMP METB)on 022 Albumin [Mass/Vol] 4.1 g/dL Normal 3.4-5.0 [facility] Comment on above: Performed By: #### P TT, PT #### [facility] [address] [place] [address] Dr. Celi Guerin Albumin/Globulin [Mass ratio] 1.1 {ratio} Normal [facility] Comment on above: Performed By: #### P TT, PT #### [facility] [address] [place] [address] Dr. Celi Guerin ALP [Catalytic activity/Vol] 100 U/L Normal 46-116 [facility] Comment on above: Performed By: #### P TT, PT #### [facility] [address] [place] [address] Dr. Celi Guerin ALT [Catalytic activity/Vol] 44 U/L Normal 14-59 [facility] Comment on above: Performed By: #### P TT, PT #### [facility] [address] [place] [address] Dr. Celi Guerin Anion gap [Moles/Vol] 18.9 mmol/L Normal [facility] Comment on above: Performed By: #### P TT, PT #### [facility] [address] [address] [address] Celi Guerin AST [Catalytic activity/Vol] 84 U/L Critically high 15-37 [facility] Comment on above: Performed By: #### P TT, PT #### [facility] [address] [address] [address] Celi Guerin Bilirubin [Mass/Vol] 0.6 mg/dL Normal 0.2-1.3 [facility] Comment on above: Performed By: #### P TT, PT #### [facility] [address] [place] [address] Dr. Celi Guerin Calcium [Mass/Vol] 8.8 mg/dL Normal 8.5-10.1 [facility] Comment on above: Performed By: #### P TT, PT #### [facility] [address] [place] [address] Dr. Celi Guerin Chloride [Moles/Vol] 100 mmol/L Normal 98-107 [facility] Comment on above: Performed By: #### P TT, PT #### [facility] [address] [place] [address] Dr. Celi Guerin CO2 [Moles/Vol] 20.8 mmol/L Critically low 22.0-30.0 [facility] Comment on above: Performed By: #### P TT, PT #### [facility] [address] [place] [address] Dr. Celi Guerin Creatinine [Mass/Vol] 0.56 mg/dL Normal 0.52-1.04 [facility] Comment on above: Performed By: #### P TT, PT #### [facility] [address] [place] [address] Dr. Celi Guerin EGFR-AF MALAYSIAN >60 Normal >=60 [facility] Comment on above: Performed By: #### P TT, PT #### [facility] [address] [place] [address] Dr. Celi Guerin EGFR-NON AF MALAYSIAN >60 Normal >=60 [facility] Comment on above: Performed By: #### P TT, PT #### [facility] [address] [place] [address] Dr. Celi Guerin Globulin (S) [Mass/Vol] 3.8 g/dL Normal [facility] Comment on above: Performed By: #### P TT, PT #### [facility] [address] [place] [address] Dr. Celi Guerin Glucose [Mass/Vol] 130 mg/dL Critically high 74-106 [facility] [place] Comment on above: Performed By: #### P TT, PT #### [facility] [address] [place] [address] Dr. Celi Guerin Potassium [Moles/Vol] 3.7 mmol/L Normal 3.4-5.0 [facility] Comment on above: Performed By: #### P TT, PT #### [facility] [address] [place] [address] Dr. Celi Guerin Protein [Mass/Vol] 7.9 g/dL Normal 6.1-8.2 [facility] Comment on above: Performed By: #### P TT, PT #### [facility] [address] [place] [address] Dr. Celi Guerin Sodium [Moles/Vol] 136 mmol/L Critically low 137-145 [facility] Comment on above: Performed By: #### P TT, PT #### [facility] [address] [place] [address] Dr. Celi Guerin Urea nitrogen [Mass/Vol] 9.0 mg/dL Normal 7.0-18.0 [facility] Comment on above: Performed By: #### P TT, PT #### [facility] [address] [place] [address] Dr. Celi Guerin Urea nitrogen/Creatinine [Mass ratio] 16.1 mg/mg Normal [facility] Comment on above: Performed By: #### P TT, PT #### [facility] [address] [place] [address] Dr. Celi Guerin CULTURE URINEon 09-02-2021 CULTURE URINE Isolate 1 Escherichia coli >100,000 cfu/mL of ORGANISM 1 Escherichia coli ANTIBIOTIC M.I.C RX STATUS Ampicillin <=2 S F Ampicillin/Sulbactam <=2 S F Piperacillin/Tazobact am <=4 S F Cefazolin <=4 S F Ceftazidime <=1 S F Ceftriaxone <=1 S F Ertapenem <=0.5 S F Imipenem <=0.25 S F Amikacin <=2 S F Gentamicin <=1 S F Tobramycin <=1 S F Ciprofloxacin <=0.25 S F Levofloxacin <=0.12 S F Nitrofurantoin <=16 S F Trimethoprim/Sulfamet hoxazole <=20 S F Normal [facility] Comment on above: Performed By: #### P TT, PT #### [facility] [address] [place] [address] Dr. Celi Guerin AMYLASEon 08-30-2021 Amylase [Catalytic activity/Vol] 538 U/L Critically high 31-110 [facility] Comment on above: Result Comment: TEST REPEATED CRITICAL VALUE VERIFIED Performed By: #### P TT, PT #### [facility] [address] [place] [address] Dr. Celi Guerin CBC AUTO DIFFon 08-30-2021 BASO # 0.0 103/ul Normal 0.0-0.1 [facility] Comment on above: Performed By: #### YURI GOMEZRO #### [facility] [address] [place] [address] Dr. Celi Guerin Basophils/100 WBC (Bld) 0.2 % Normal 0.2-2.0 [facility] Comment on above: Performed By: #### YURI GOMEZRO #### [facility] [address] [place] [address] Dr. Celi Guerin EO # 0.0 103/ul Normal 0.0-0.7 [facility] Comment on above: Performed By: #### YURI GOMEZRO #### [facility] [address] [place] [address] Dr. Celi Guerin Eosinophils/100 WBC (Bld) 0.2 % Critically low 0.9-7.0 [facility] Comment on above: Performed By: #### ARTEMIO GOMEZ #### [facility] [address] [place] [address] Dr. Celi Guerin Erythrocyte distribution width (RBC) [Ratio] 17.0 % Critically high 11.0-15.0 [facility] Comment on above: Performed By: #### YURI GOMEZRO #### [facility] [address] [place] [address] Dr. Celi Guerin Hematocrit (Bld) [Volume fraction] 34.2 % Critically low 36.0-48.0 [facility] Comment on above: Performed By: #### YURI GOMEZRO #### [facility] [address] [place] [address] Dr. Celi Guerin Hemoglobin (Bld) [Mass/Vol] 10.6 g/dL Critically low 12.0-16.0 [facility] Comment on above: Performed By: #### YURI GOMEZRO #### [facility] [address] [place] [address] Dr. Celi Guerin IG # 0.03 10e3/ul Normal 0.00-0.03 [facility] Comment on above: Performed By: #### YURI GOMEZRO #### [facility] [address] [place] [address] Dr. Celi Guerin IG % 0.5 % Normal 0.0-0.5 [facility] Comment on above: Performed By: #### YURI GOMEZRO #### [facility] [address] [place] [address] Dr. Celi Guerin LYMPH # 0.8 103/ul Critically low 1.2-3.8 [facility] Comment on above: Performed By: #### YURI GOMEZRO #### [facility] [address] [place] [address] Dr. Celi Guerin Lymphocytes/100 WBC (Bld) 14.4 % Critically low 20.5-60.0 [facility] Comment on above: Performed By: #### Sergey LUCEROR, UMICRO #### [facility] [address] [place] [address] Dr. Celi Guerin MANUAL DIFF REQ NO Normal [facility] Comment on above: Performed By: #### E LUCEROR, UMICRO #### [facility] [address] [place] [address] Dr. Celi Guerin MCH (RBC) [Entitic mass] 26.9 pg Normal 26.7-34.0 [facility] Comment on above: Performed By: #### E RURuma, UMICRO #### [facility] [address] [place] [address] Dr. Celi Guerin MCHC (RBC) [Mass/Vol] 31.0 g/dL Normal 29.9-35.2 [facility] Comment on above: Performed By: #### Sergey ESTRELLA UMICRO #### [facility] [address] [place] [address] Dr. Celi Guerin MCV (RBC) [Entitic vol] 86.8 fL Normal 81.0-99.0 [facility] Comment on above: Performed By: #### Sergey ESTRELLA UMICRO #### [facility] [address] [place] [address] Dr. Celi Guerin MONO # 0.3 103/ul Normal 0.3-0.8 [facility] Comment on above: Performed By: #### Sergey ESTRELLA UMICRO #### [facility] [address] [place] [address] Dr. Celi Guerin Monocytes/100 WBC (Bld) 4.9 % Normal 1.7-12.0 [facility] Comment on above: Performed By: #### Sergey ESTRELLA UMICRO #### [facility] [address] [place] [address] Dr. Celi Guerin NEUT # 4.6 103/ul Normal 1.4-6.5 [facility] Comment on above: Performed By: #### Sergey ESTRELLA UMICRO #### [facility] [address] [place] [address] Dr. Celi Guerin Neutrophils/100 WBC (Bld) 79.8 % Critically high 43.0-75.0 [facility] Comment on above: Performed By: #### ARTEMIO GOMEZ #### [facility] [address] [place] [address] Dr. Celi Guerin Platelet mean volume (Bld) [Entitic vol] 11.7 fL Normal 9.5-13.5 [facility] Comment on above: Performed By: #### ARTEMIO GOMEZ #### [facility] [address] [place] [address] Dr. Celi Guerin PLT 68 103/ul Critically low 150-450 [facility] Comment on above: Performed By: #### ARTEMIO GOMEZ #### [facility] [address] [place] [address] Dr. Celi Guerin RBC 3.94 106/ul Critically low 4.20-5.40 [facility] Comment on above: Performed By: #### ARTEMIO GOMEZ #### [facility] [address] [place] [address] Dr. Celi Guerin WBC 5.8 103/ul Normal 4.0-11.0 [facility] Comment on above: Performed By: #### ARTEMIO GOMEZ #### [facility] [address] [place] [address] ABD/PELVIS WO CONon 08-30 CT ABD/PELVIS WO CON STUDY: CT abdomen pelvis noncontrast TECHNIQUE: Axial slices were obtained from [...] not well evaluated on this noncontrasted CT. Mesentery/retroperito neum: No free air in the abdomen. Marked [...] BOONE LEA Date: 2021-08-30 18:43 Normal [facility] ER URINE PROFILEon 2 Bilirubin Ql (U) SMALL Abnormal NEGATIVE [facility] Comment on above: Performed By: #### ARTEMIO GOMEZ #### [facility] [address] [place], [place] [address] Dr. Celi Guerin Clarity (U) CLEAR Normal CLEAR [facility] Comment on above: Performed By: #### ARTEMIO GOMEZ #### [facility] [address] [place] [address] Dr. Celi Guerin Color (U) YELLOW Normal YELLOW [facility] Comment on above: Performed By: #### FLOR GOMEZICRO #### [facility] [address] [place] [address] Dr. Celi LUCAS A micrscopic examination will be performed if indicated. Normal [facility] Comment on above: Performed By: #### Sergey ESTRELLA UMICRO #### [facility] [address] [place] [address] Dr. Celi Guerin Glucose Ql (U) Negative Normal NEGATIVE [facility] Comment on above: Performed By: #### Sergey ESTRELLA UMICRO #### [facility] [address] [place] [address] Dr. Celi Guerin Hemoglobin Ql (U) Negative Normal NEGATIVE [facility] Comment on above: Performed By: #### Sergey ESTRELLA UMICRO #### [facility] [address] [place] [address] Dr. Celi Guerin Ketones Ql (U) >=80 Abnormal NEGATIVE [facility] Comment on above: Performed By: #### Sergey ESTRELLA UMICRO #### [facility] [address] [place] [address] Dr. Celi Guerin LEUKOCYTES MODERATE Abnormal NEGATIVE [facility] Comment on above: Performed By: #### Sergey ESTRELLA UMICRO #### [facility] [address] [place] [address] Dr. Celi Guerin Nitrite Ql (U) Positive Abnormal NEGATIVE [facility] Comment on above: Performed By: #### Sergey ESTRELLA UMICRO #### [facility] [address] [place] [address] Dr. Celi Guerin pH (U) 6.5 [pH] Normal 5-9 [facility] Comment on above: Performed By: #### Sergey ESTRELLA UMICRO #### [facility] [address] [place] [address] Dr. Celi Guerin Protein (U) [Mass/Vol] 100 mg/dL Abnormal NEGATIVE/ TRACE [facility] Comment on above: Performed By: #### E YURI ESTRELLARO #### [facility] [address] [place] [address] Dr. Celi Guerin SPEC GRAVITY 1.020 Normal 1.005-<=1.025 [facility] Comment on above: Performed By: #### E YURI ESTRELLARO #### [facility] [address] [place] [address] Dr. Celi Guerin UR MICRO IND INDICATED Normal [facility] Comment on above: Performed By: #### E LUCEROR, YURIRO #### [facility] [address] [place] [address] Dr. Celi Guerin Urobilinogen Qn (U) 2.0 {Irlanda'U}/dL Abnormal 0.2 - 1. 0 [facility] Comment on above: Performed By: #### E YURI ESTRELLARO #### [facility] [address] [place] [address] Dr. Celi Guerin ETHANOL (BLD ALC)on 08-31-19 22 ALC NOTE NOTE: 80 mg/dl is th e legal limit for a blood alcohol level Normal [facility] Comment on above: Performed By: #### E TH #### [facility] [address] [place] [address] Dr. Celi Guerin Ethanol [Mass/Vol] mg/dL Normal [facility] Comment on above: Performed By: #### E TH #### [facility] [address] [place] [address] Dr. Celi Guerin LIPASEon 08-30-2021 Lipase [Catalytic activity/Vol] U/L Critically high 23.0-300.0 [facility] Comment on above: Result Comment: TEST REPEATED CRITICAL VALUE VERIFIED Performed By: #### P TT, PT #### [facility] [address] [place] [address] Dr. Celi Guerin PROF 14(COMP METB)on 022 Albumin [Mass/Vol] 3.9 g/dL Normal 3.5-5.0 [facility] Comment on above: Performed By: #### P TT, PT #### [facility] [address] [address] [address] Celi Guerin Albumin/Globulin [Mass ratio] 1.1 {ratio} Normal [facility] Comment on above: Performed By: #### P TT, PT #### [facility] [address] [address] [address] Celi Guerin ALP [Catalytic activity/Vol] 91 U/L Normal 38-126 [facility] Comment on above: Performed By: #### P TT, PT #### [facility] [address] [address] [address] Celi Guerin ALT [Catalytic activity/Vol] 52 U/L Normal 9-52 [facility] Comment on above: Performed By: #### P TT, PT #### [facility] [address] [place] [address] Dr. Celi Guerin Anion gap [Moles/Vol] 16.7 mmol/L Normal [facility] Comment on above: Performed By: #### P TT, PT #### [facility] [address] [place] [address] Dr. Celi Guerin AST [Catalytic activity/Vol] 59 U/L Critically high 14-36 [facility] Comment on above: Performed By: #### P TT, PT #### [facility] [address] [place] [address] Dr. Celi Guerin Bilirubin [Mass/Vol] 1.0 mg/dL Normal 0.2-1.3 [facility] Comment on above: Performed By: #### P TT, PT #### [facility] [address] [address] [address] Clei Guerin Calcium [Mass/Vol] 9.0 mg/dL Normal 8.4-10.2 [facility] Comment on above: Performed By: #### P TT, PT #### [facility] [address] [place] [address] Dr. Celi Guerin Chloride [Moles/Vol] 95 mmol/L Critically low 98-107 [facility] Comment on above: Performed By: #### P TT, PT #### [facility] [address] [address] [address] Celi Guerin CO2 [Moles/Vol] 22.8 mmol/L Normal 22.0-30.0 [facility] Comment on above: Performed By: #### P TT, PT #### [facility] [address] [address] [address] Celi Guerin Creatinine [Mass/Vol] 0.57 mg/dL Normal 0.52-1.04 [facility] Comment on above: Performed By: #### P TT, PT #### [facility] [address] [address] [address] Celi Guerin EGFR-AF MALAYSIAN >60 Normal >=60 [facility] Comment on above: Performed By: #### P TT, PT #### [facility] [address] [place] [address] Dr. Celi Guerin EGFR-NON AF MALAYSIAN >60 Normal >=60 [facility] Comment on above: Performed By: #### P TT, PT #### [facility] [address] [place] [address] Dr. Celi Guerin Globulin (S) [Mass/Vol] 3.5 g/dL Normal [facility] Comment on above: Performed By: #### P TT, PT #### [facility] [address] [place] [address] Dr. Celi Guerin Glucose [Mass/Vol] 82 mg/dL Normal 74-106 [facility] Comment on above: Performed By: #### P TT, PT #### [facility] [address] [address] [address] Celi Guerin Potassium [Moles/Vol] 3.5 mmol/L Normal 3.4-5.0 [facility] Comment on above: Performed By: #### P TT, PT #### [facility] [address] [place] [address] Dr. Celi Guerin Protein [Mass/Vol] 7.4 g/dL Normal 6.1-8.2 [facility] Comment on above: Performed By: #### P TT, PT #### [facility] [address] [address] [address] Celi Guerin Sodium [Moles/Vol] 131 mmol/L Critically low 137-145 [facility] Comment on above: Performed By: #### P TT, PT #### [facility] [address] [place] [address] Dr. Celi Guerin Urea nitrogen [Mass/Vol] 8.0 mg/dL Normal 7.0-17.0 [facility] Comment on above: Performed By: #### P TT, PT #### [facility] [address] [place] [address] Dr. Celi Guerin Urea nitrogen/Creatinine [Mass ratio] 14.0 mg/mg Normal [facility] Comment on above: Performed By: #### P TT, PT #### [facility] [address] [place] [address] Dr. Celi Guerin URINE MICROSCOPIC ONLYon BACTERIA MODERATE Abnormal NONE SEEN [facility] Comment on above: Performed By: #### E RUR, UMICRO #### [facility] [address] [place] [address] Dr. Celi Guerin Bacteria identified Cx Nom (U) INDICATED Normal [facility] Comment on above: Performed By: #### E RUR, UMICRO #### [facility] [address] [place] [address] Dr. Celi Guerin CAST SEEN Abnormal NONE SEEN [facility] Comment on above: Performed By: #### E RUR, UMICRO #### [facility] [address] [place] [address] Dr. Celi Guerin Crystals LM Nom (Urine sed) NONE SEEN Normal NONE SEEN [facility] Comment on above: Performed By: #### E RUR, UMICRO #### [facility] [address] [place] [address] Dr. Celi Guerin Epithelial cells LM Ql (Urine sed) FEW Abnormal NONE SEEN /RARE [facility] Comment on above: Performed By: #### E RUR, UMICRO #### [facility] [address] [place] [address] Dr. Celi Guerin HYALINE CAST RARE Normal [facility] Comment on above: Performed By: #### Sergey ESTRELLA UMICRO #### [facility] [address] [place] [address] Dr. Celi Guerin MUCOUS NONE SEEN Normal NONE SEEN [facility] Comment on above: Performed By: #### YURI GOMEZRO #### [facility] [address] [place] [address] Dr. Celi Guerin RBC 0-2 Normal 0-2 [facility] Comment on above: Performed By: #### FLOR GOMEZICRO #### [facility] [address] [place] [address] Dr. Celi Guerin WBC 10-20 Abnormal NONE SEEN [facility] Comment on above: Performed By: #### YURI GOMEZRO #### [facility] [address] [place] [address] Dr. Celi Guerin AMYLASEon 07-04-2021 Amylase [Catalytic activity/Vol] 113 U/L Critically high 31-110 [facility] Comment on above: Performed By: #### YURI GOMEZRO #### [facility] [address] [place] [address] Dr. Celi Guerin CBC AUTO DIFFon 07-04-2021 BASO # 0.0 103/ul Normal 0.0-0.1 [facility] Comment on above: Performed By: #### C BC #### [facility] [address] [place] [address] Dr. Celi Guerin Basophils/100 WBC (Bld) 0.3 % Normal 0.2-2.0 [facility] Comment on above: Performed By: #### C BC #### [facility] [address] [place] [address] Dr. Celi Guerin EO # 0.0 103/ul Normal 0.0-0.7 [facility] Comment on above: Performed By: #### C BC #### [facility] [address] [place] [address] Dr. Celi Guerin Eosinophils/100 WBC (Bld) 0.0 % Critically low 0.9-7.0 [facility] Comment on above: Performed By: #### C BC #### [facility] [address] [address] [address] Celi Guerin Erythrocyte distribution width (RBC) [Ratio] 20.1 % Critically high 11.0-15.0 [facility] Comment on above: Performed By: #### C BC #### [facility] [address] [address] [address] Celi Guerin Hematocrit (Bld) [Volume fraction] 36.8 % Normal 36.0-48.0 [facility] Comment on above: Performed By: #### C BC #### [facility] [address] [place] [address] Dr. Celi Guerin Hemoglobin (Bld) [Mass/Vol] 12.3 g/dL Normal 12.0-16.0 [facility] Comment on above: Performed By: #### C BC #### [facility] [address] [place] [address] Dr. Celi Guerin IG # 0.04 10e3/ul Critically high 0.00-0.03 [facility] Comment on above: Performed By: #### C BC #### [facility] [address] [place] [address] Dr. Celi Guerin IG % 0.6 % Critically high 0.0-0.5 [facility] Comment on above: Performed By: #### C BC #### [facility] [address] [place] [address] Dr. Celi Guerin LYMPH # 0.9 103/ul Critically low 1.2-3.8 [facility] Comment on above: Performed By: #### C BC #### [facility] [address] [place] [address] Dr. Celi Guerin Lymphocytes/100 WBC (Bld) 12.7 % Critically low 20.5-60.0 [facility] Comment on above: Performed By: #### C BC #### [facility] [address] [place] [address] Dr. Celi Guerin MANUAL DIFF REQ NO Normal [facility] Comment on above: Performed By: #### C BC #### [facility] [address] [place] [address] Dr. Celi Guerin MCH (RBC) [Entitic mass] 29.5 pg Normal 26.7-34.0 [facility] Comment on above: Performed By: #### C BC #### [facility] [address] [place] [address] Dr. Celi Guerin MCHC (RBC) [Mass/Vol] 33.4 g/dL Normal 29.9-35.2 [facility] Comment on above: Performed By: #### C BC #### [facility] [address] [place] [address] Dr. Celi Guerin MCV (RBC) [Entitic vol] 88.2 fL Normal 81.0-99.0 [facility] Comment on above: Performed By: #### C BC #### [facility] [address] [place] [address] Dr. Celi Guerin MONO # 0.5 103/ul Normal 0.3-0.8 [facility] Comment on above: Performed By: #### C BC #### [facility] [address] [place] [address] Dr. Celi Guerin Monocytes/100 WBC (Bld) 6.9 % Normal 1.7-12.0 [facility] Comment on above: Performed By: #### C BC #### [facility] [address] [place] [address] Dr. Celi Guerin NEUT # 5.5 103/ul Normal 1.4-6.5 [facility] Comment on above: Performed By: #### C BC #### [facility] [address] [place] [address] Dr. Celi Guerin Neutrophils/100 WBC (Bld) 79.5 % Critically high 43.0-75.0 [facility] Comment on above: Performed By: #### C BC #### [facility] [address] [place] [address] Dr. Celi Guerin Platelet mean volume (Bld) [Entitic vol] 10.0 fL Normal 9.5-13.5 [facility] Comment on above: Performed By: #### C BC #### [facility] [address] [place], [place] [address] Dr. Celi Guerin PLT 95 103/ul Critically low 150-450 [facility] Comment on above: Performed By: #### C BC #### [facility] [address] [place], [place] [address] Dr. Celi Guerin RBC 4.17 106/ul Critically low 4.20-5.40 [facility] Comment on above: Performed By: #### C BC #### [facility] [address] [place], [place] [address] Dr. Celi Guerin WBC 7.0 103/ul Normal 4.0-11.0 [facility] Comment on above: Performed By: #### C BC #### [facility] [address] [place], [place] [address] ABD/PELV W CONon 07-04-19 CT ABD/PELV W CON EXAMINATION: CT ABD/PELV W CON HISTORY: NAUSEA WITH VOMITING, UNSPECIFIED [...] OSMIN MCGEE Date: 2021-07-04 16:56 Normal [facility] ETHANOL (BLD ALC)on 07-04-19 22 ALC NOTE NOTE: 80 mg/dl is [facility] legal limit for a blood alcohol level Normal [facility] Comment on above: Performed By: #### Sergey ESTRELLA UMICRO #### [facility] [address] [place] [address] Dr. Celi Guerin Ethanol [Mass/Vol] 35 mg/dL Normal [facility] Comment on above: Performed By: #### YURI GOMEZRO #### [facility] [address] [place] [address] Dr. Celi Guerin LIPASEon 07-04-2021 Lipase [Catalytic activity/Vol] 830.0 U/L Critically high 23.0-300.0 [facility] Comment on above: Performed By: #### FLOR GOMEZICRO #### [facility] [address] [place] [address] Dr. Celi Guerin PREG HCG QUALon 07-04-2021 , QUAL Negative Normal NEGATIVE [facility] Comment on above: Performed By: #### P REG #### [facility] [address] [place] [address] Dr. Celi Guerin PROF 14(COMP METB)on 022 Albumin [Mass/Vol] 3.2 g/dL Critically low 3.5-5.0 [facility] Comment on above: Performed By: #### Sergey ESTRELLA UMRADHARO #### [facility] [address] [place] [address] Dr. Celi Guerin Albumin/Globulin [Mass ratio] 0.7 {ratio} Normal [facility] Comment on above: Performed By: #### Sergey ESTRELLA UMICRO #### [facility] [address] [place] [address] Dr. Celi Guerin ALP [Catalytic activity/Vol] 126 U/L Normal 38-126 [facility] Comment on above: Performed By: #### ARTEMIO GOMEZ #### [facility] [address] [place] [address] Dr. Celi Guerin ALT [Catalytic activity/Vol] 60 U/L Critically high 9-52 [facility] Comment on above: Performed By: #### ARTEMIO GOMEZ #### [facility] [address] [place] [address] Dr. Celi Guerin Anion gap [Moles/Vol] 17.7 mmol/L Normal [facility] Comment on above: Performed By: #### ARTEMIO GOMEZ #### [facility] [address] [place] [address] Dr. Celi Guerin AST [Catalytic activity/Vol] 112 U/L Critically high 14-36 [facility] Comment on above: Performed By: #### ARTEMIO GOMEZ #### [facility] [address] [place] [address] Dr. Celi Guerin Bilirubin [Mass/Vol] 0.7 mg/dL Normal 0.2-1.3 [facility] Comment on above: Performed By: #### ARTEMIO GOMEZ #### [facility] [address] [place] [address] Dr. Celi Guerin Calcium [Mass/Vol] 8.5 mg/dL Normal 8.4-10.2 [facility] Comment on above: Performed By: #### ARTEMIO GOMEZ #### [facility] [address] [place] [address] Dr. Celi Guerin Chloride [Moles/Vol] 98 mmol/L Normal 98-107 [facility] Comment on above: Performed By: #### YURI GOMEZRO #### [facility] [address] [place] [address] Dr. Celi Guerin CO2 [Moles/Vol] 23.5 mmol/L Normal 22.0-30.0 [facility] Comment on above: Performed By: #### YURI GOMEZRO #### [facility] [address] [place] [address] [address] Celi Guerin Creatinine [Mass/Vol] 0.57 mg/dL Normal 0.52-1.04 [facility] Comment on above: Performed By: #### YURI GOMEZRO #### [facility] [address] [place] [address] [address] Celi Guerin EGFR-AF MALAYSIAN >60 Normal >=60 [facility] Comment on above: Performed By: #### YURI GOMEZRO #### [facility] [address] [place] [address] [address] Celi Guerin EGFR-NON AF MALAYSIAN >60 Normal >=60 [facility] Comment on above: Performed By: #### YURI GOMEZRO #### [facility] [address] [place] [address] Dr. Celi Guerin Globulin (S) [Mass/Vol] 4.3 g/dL Normal [facility] Comment on above: Performed By: #### YURI GOMEZRO #### [facility] [address] [place] [address] Dr. Celi Guerin Glucose [Mass/Vol] 104 mg/dL Normal 74-106 [facility] Comment on above: Performed By: #### YURI GOMEZRO #### [facility] [address] [place] [address] Dr. Celi Guerin Potassium [Moles/Vol] 3.2 mmol/L Critically low 3.4-5.0 [facility] Comment on above: Performed By: #### Sergey ESTRELLA UMICRO #### [facility] [address] [place] [address] [address] Celi Guerin Protein [Mass/Vol] 7.5 g/dL Normal 6.1-8.2 [facility] Comment on above: Performed By: #### Sergye ESTRELLA UMICRO #### [facility] [address] [place] [address] [address] Celi Guerin Sodium [Moles/Vol] 136 mmol/L Critically low 137-145 [facility] Comment on above: Performed By: #### E YURI ESTRELLARO #### [facility] [address] [place] [address] Dr. Celi Guerin Urea nitrogen [Mass/Vol] 5.0 mg/dL Critically low 7.0-17.0 [facility] Comment on above: Performed By: #### E YURI ESTRELLARO #### [facility] [address] [place] [address] Dr. Celi Guerin Urea nitrogen/Creatinine [Mass ratio] 8.8 mg/mg Normal [facility] Comment on above: Performed By: #### E YURI ESTRELLARO #### [facility] [address] [place] [address] Dr. Celi Guerin PROTIMEon 07-04-2021 INR Coag (PPP) [Relative time] 1.03 {INR} Normal [facility] Comment on above: Performed By: #### P TT, PT #### [facility] [address] [place] [address] Dr. Celi Guerin INR GUIDELINES SEE BELOW Normal [facility] Comment on above: Result Comment: KIRILL RED INR: 2.0 - 3.0 CONDITIONS NOT LISTED BELOW 2.5 - 3.5 FOR PROSTHETIC HEART VALVE REPLACEMENT 2.5 - 3.5 RECURRENT THROMBOSIS Performed By: #### P TT, PT #### [facility] [address] [place] [address] Dr. Celi Guerin PT Coag (PPP) [Time] 11.1 s Normal 9.0-11.6 [facility] Comment on above: Performed By: #### P TT, PT #### [facility] [address] [place] [address] Dr. Celi Guerin PTTon 07-04-2021 aPTT Coag (Bld) [Time] 27.6 s Normal 22.3-36.2 [facility] Comment on above: Performed By: #### P TT, PT #### [facility] [address] [place] [address] Dr. Celi Guerin Covid-19 PCR ([facility])on SARS-CoV-2 (COVID-19) RNA LIBERTAD+probe Ql (Unsp spec) Not detected Normal NOT DETECTED [facility] Comment on above: Result Comment: When [...] for this test is supported by the [place] of Health and Human Service's declaration that [...] no longer be used). Performed By: #### ARTEMIO GOMEZ #### [facility] [address] [place] [address] Dr. Celi Guerin COVID-19/INFLUENZA A,B [facility] 05-21-2020 COVID-19/INFLUENZA A,B MOLECULAR SARS-COV-2 (YUNG): Detected INFLUENZA A (YUNG): Not Detected INFLUENZA B (YUNG): Not Detected Normal Not Detected [facility] Comment on above: Order Comment: This [...] at the following links: For Healthcare Providers: https://www.fda.gov/media/869637/download For Patients: https://www.fda.gov/media/140412/download Performed By: #### L [id number] #### [place] [address] Faye Enriquez M.D. [id number] COVID-19/Influenza A,B [facility] 05-21-2020 Influenza A Not Detected Not Detected [facility] h Influenza B Not Detected Not Detected [facility] Interpretation and review of laboratory results Abnormal [facility] SARS-CoV-2 Detected Abnormal Not Detected [facility] This test was performed under the FDA's Emergency Use Authorization (EUA). Testing was performed using the Eleni feliciano SARS-CoV-2 & Influenza A/B Nucleic Acid Test on the feliciano Yug[employer] System. This test has not been approved for use in asymptomatic patients and its performance in this patient population has not been evaluated. Negative results do not rule out the presence of SARS-CoV-2, influenza A, and/or influenza B. Fact sheets for the EUA can be found at the following links: For Healthcare Providers: https://www.[place] [facility].gov/m edia/518128/download For Patients: https://www.[place] [facility].gov/m edia/628463/download [facility] INCISION AND DRAINAGEon 09-26 Maria Elena West CNP 10/07/2019 2:39 PM Incision/Drainage Date/Time: 10/07/2019 1:55 PM [...] the procedure well with no immediate complications [facility] Alcohol, Medicalon 0 Ethanol [Mass/Vol] 342.00 mg/dL High <10.00 [facility] Interpretation and review of laboratory results Abnormal [facility] BMPon 08-29-2019 Anion gap [Moles/Vol] 11 mmol/L 10 - 20 mmol/L [facility] Calcium [Mass/Vol] 9.0 mg/dL 8.4 - 10. 2 mg/dL [facility] Chloride [Moles/Vol] 111 mmol/L High 98 - 108 mmol/L [facility] Creatinine [Mass/Vol] 0.65 mg/dL 0.40 - 1.10 [facility] GFR/1.73 sq M predicted among non-blacks MDRD (S/P/Bld) [Vol rate/Area] The eGFR should be used for monitoring renal function only and not for medication dosing. [facility] GFR/1.73 sq M.predicted CKD-EPI (S/P/Bld) [Vol rate/Area] 118 >=60 mL/min/1.73 m2 [facility] Glucose [Mass/Vol] 86 mg/dL 65 - 99 mg/dL [facility] HCO3 [Moles/Vol] 24 mmol/L 21 - 32 mmol/L [facility] Interpretation and review of laboratory results Abnormal [facility] Potassium [Moles/Vol] 4.1 mmol/L 3.5 - 5.1 mmol/L [facility] Sodium [Moles/Vol] 142 mmol/L 135 - 145 mmol/L [facility] Urea nitrogen [Mass/Vol] 9 mg/dL 8 - 25 mg/dL [facility] Urea nitrogen/Creatinine [Mass ratio] 13.8 mg/mg [facility] CBC WITH AUTO DIFFERENTIALon 08-29-2019 Basophils (Bld) [#/Vol] 0.05 10*3/uL [facility] Basophils/100 WBC (Bld) 0.4 % [facility] Eosinophils (Bld) [#/Vol] 0.08 10*3/uL [facility] Eosinophils/100 WBC (Bld) 0.6 % [facility] Erythrocyte distribution width (RBC) [Entitic vol] 19.7 % High 11.6 - 14.8 % [facility] Hematocrit (Bld) [Volume fraction] 38.3 % 36 - 46 % [facility] Hemoglobin (Bld) [Mass/Vol] 12.8 g/dL 12 - 16 g/dL [facility] Immature granulocytes (Bld) [#/Vol] 0.05 10*3/uL [facility] Immature granulocytes/100 WBC (Bld) 0.40 % [facility] Comment on above: The IG parameter is the percentage of metamyelocytes, myelocytes, and promyelocytes. Interpretation and review of laboratory results Abnormal [facility] Lymphocytes (Bld) [#/Vol] 3.14 10*3/uL [facility] Lymphocytes/100 WBC (Bld) 23.9 % [facility] MCH (RBC) [Entitic mass] 29.1 pg 26 - 34 pg [facility] MCHC (RBC) [Mass/Vol] 33.4 g/dL 31 - 37 g/dL [facility] MCV (RBC) [Entitic vol] 87.0 fL 80 - 100 fL [facility] Monocytes (Bld) [#/Vol] 0.67 10*3/uL [facility] Monocytes/100 WBC (Bld) 5.1 % [facility] Neutrophils (Bld) [#/Vol] 9.16 10*3/uL High [facility] Neutrophils/100 WBC (Bld) 69.6 % [facility] Nucleated RBC (Bld) [#/Vol] 0.01 10*3/uL [facility] Nucleated RBC/100 WBC (Bld) [Ratio] 0.1 % [facility] Platelet mean volume (Bld) [Entitic vol] 10.0 fL 9 - 15.5 fL [facility] Platelets (Bld) [#/Vol] 191 10*3/uL [facility] RBC (Bld) [#/Vol] 4.40 10*6/uL [facility]alth WBC (Bld) [#/Vol] 13.15 10*3/uL [facility] CT ABDOMEN PELVIS WITH IV CO [...] is normal. 2. Hepatic steatosis. Workstation ID: [id number] Dictated by: MELINA BAILEY on WedAug 29, 2019 2:37:05 PM EST Transcribed by: MELINA BAILEY on WedAug 29, 2019 2:37:05 PM EST Finalized by: MELINA BAILEY on WedAug 29, 2019 2:37:05 PM EST Normal [facility] Comment on above: Order Comment: Injur y/Trauma or Illness?:Illness/Other How long have you had these symptoms (acute/chronic)?:Acute Reason for exam?:abd pain Type of Exam?:Initial Additional signs and symptoms?:h/o pancreatitis CT Abdomen Pelvis With IV Co ntrast Onlyon 08-29-2019 EXAMINATION: CT ABDOMEN PELVIS WITH IV CONTRAST [...] nondilated. There is no acute osseous pathology. [facility], Rad In Sam Riderq - 08/29/2019 2:39 PM EST EXAMINATION: CT [...] is normal. 2. Hepatic steatosis. Workstation ID: [id number] [facility] 1. Fairly diffuse colonic wall thickening that may reflect incomplete bowel distention and spasm versus a mild colitis. There is no bowel obstruction. The appendix is normal. 2. Hepatic steatosis. Workstation ID: [id number] [facility] Hepatic Function Panel (LFT) on 08-29-2019 Albumin [Mass/Vol] 3.8 g/dL 3.2 - 5.2 g/dL [facility] ALP [Catalytic activity/Vol] 62 U/L 40 - 140 U/L [facility] ALT [Catalytic activity/Vol] 25 U/L 14 - 65 U/L [facility] AST [Catalytic activity/Vol] 21 U/L 0 - 45 U/L [facility] Bilirubin [Mass/Vol] 0.3 mg/dL 0 - 1.3 mg/dL [facility] Bilirubin.conjugate d [Mass/Vol] mg/dL 0 - 0.4 mg/dL [facility] Protein [Mass/Vol] 7.6 g/dL 6 - 8 g/dL [facility] alth Lipaseon 08-29-2019 Lipase [Catalytic activity/Vol] 102 U/L 73 - 393 U/L [facility] Otheron 08-29-2019 Extra Tube Hold for add-ons. [facility] Comment on above: Auto resulted. Interpretation and review of laboratory results Normal [facility] URINALYSISon 08-29-2019 Bacteria Auto Ql (U) None Seen None Seen /hpf [facility] Bilirubin Ql (U) Negative Negative [facility] Clarity Refractometry automated (U) Clear Clear [facility] Color (U) Colorless Colorless, Yellow [facility] Glucose Auto test strip (U) [Mass/Vol] Negative Negative mg/dL [facility] Hemoglobin Auto test strip Ql (U) Large Abnormal Negative [facility] Interpretation and review of laboratory results Abnormal [facility] Ketones (U) [Mass/Vol] Negative Negative mg/dL [facility] Leukocyte esterase Auto test strip Ql (U) Negative Negative [facility] Nitrite Auto test strip Ql (U) Negative Negative [facility] pH (U) 6.0 [pH] [facility] Protein (U) [Mass/Vol] Negative Negative mg/dL [facility] Specific gravity (U) [Rel density] 1.002 Low [facility] Urobilinogen (U) [Mass/Vol] <2.0 <2.0 mg/dL [facility] WBC Auto (Urine sed) [#/Area] <1 [facility] Microscopic examination is performed on all urinalysis samples and only positive findings are reported. The test for blood on the chemical analytic portion of urinalysis may also be positive due to hemoglobinuria and myoglobinuria and if red blood cells are present they are quantified by microscopic examination. [facility] Urine Pregnancyon 08-29-2019 Beta HCG ( test) Ql (U) Urine specific gravity less than 1.010 can give a false negative test result. Any specimen with a specific gravity less than 1.010 or collected before the first day of a missed menstrual period should be checked with a serum test. [facility] HCG ( test) Ql (U) Negative Negative [facility] Interpretation and review of laboratory results Normal [facility] Basic Metabolic Panelon 09-26 Calcium mass conc 9.6 mg/dL Normal 8.2-10.2 [facility] Comment on above: Performed By: #### C BC, ETOH, CMP #### [facility] [address] [place] [address] [place] Chloride molar conc 103 mmol/L Normal 95-114 [facility] Comment on above: Performed By: #### C BC, ETOH, CMP #### [facility] [address] [place] [address] [place] CO2 molar conc 24.1 mmol/L Normal 22.0-30.0 [facility] Comment on above: Performed By: #### C BC, ETOH, CMP #### [facility] [address] [place] [address] [place] Creatinine mass conc 127.6356173907 mg/dL Normal [facility] Comment on above: Result Comment: PERF ORMED BY: [place] [address] PATHOLOGIST [employer] CONSERVATOR CLAUDIA BAUER M.D. Performed By: #### C BC, ETOH, CMP #### [facility] [address] Creatinine mass conc 0.63 mg/dL Normal 0.44-1.03 [facility] Comment on above: Performed By: #### C BC, ETOH, CMP #### [facility] [address] [place] [address] [place] Estimated GFR ( Khloe > 60 Normal [facility] Comment on above: Result Comment: GFR estimated reference range: According to KDOQI guidelines, <60 ml/min/1.73m2 is sufficient to diagnose a patient with chronic kidney disease. Performed By: #### C BC, ETOH, CMP #### [facility] [address] [place] [address] [place] Estimated GFR (Non- Am > 60 Normal [facility] Comment on above: Performed By: #### C BC, ETOH, CMP #### [facility] [address] [place] [address] [place] Glucose mass conc 91 mg/dL Normal 70-100 [facility] Comment on above: Result Comment: [place] om Glucose Reference Range is dependent on time and content of last meal. Glucose of more than 200 mg/dL in a nonstressed, ambulatory subject supports the diagnosis of Diabetes Mellitus. ADA recommended reference range Performed By: #### C BC, ETOH, CMP #### [facility] [address] Potassium molar conc 3.9 mmol/L Normal 3.5-5.1 [facility] Comment on above: Performed By: #### C BC, ETOH, CMP #### [facility] [address] Sodium molar conc 135 mmol/L Low 136-146 [facility] Comment on above: Performed By: #### C BC, ETOH, CMP #### [address] Urea nitrogen mass conc 4 mg/dL Low 9-23 [facility] Comment on above: Performed By: #### C BC, ETOH, CMP #### [address] Hepatic Panelon 10-10-2018 Albumin mass conc 3.5 g/dL Normal 3.2-5.5 [facility] Comment on above: Performed By: #### H STEVE BMP #### [address] Albumin/Globulin mass ratio 1.3 {ratio} Normal [facility] Comment on above: Performed By: #### H STEVE, BMP #### [address] ALP enzyme act/vol 72 U/L Normal 32-92 [facility] Comment on above: Performed By: #### H STEVE BMP #### [place] [address] [place] ALT enzyme act/vol 91 U/L High 10-60 [facility] Comment on above: Performed By: #### H EPACLARI, BMP #### [address] AST enzyme act/vol 112 U/L High 10-42 [facility] Comment on above: Performed By: #### H STEVE BMP #### [address] Bilirubin mass conc 0.5 mg/dL Normal 0.3-1.2 [facility] Comment on above: Performed By: #### H STEVE BMP #### [address] Bilirubin,Indirect 0.3 mg/dL Normal [facility] Comment on above: Performed By: #### H STEVE BMP #### [address] Bilirubin.direct mass conc 0.2 mg/dL Normal 0.0-0.4 [facility] Comment on above: Performed By: #### H STEVE BMP #### [address] Globulin mass conc (S) 2.6 g/dL Normal [facility] [place] Comment on above: Performed By: #### H STEVE BMP #### [address] Protein mass conc 6.1 g/dL Normal 6.1-7.9 [facility] Comment on above: Performed By: #### H STEVE BMP #### [address] Basic Metabolic Panelon 04- Calcium mass conc 9.1 mg/dL Normal 8.2-10.2 [facility] Comment on above: Performed By: #### H STEVE BMP #### [address] Chloride molar conc 108 mmol/L Normal 95-114 [facility] Comment on above: Performed By: #### H STEVE BMP #### [address] CO2 molar conc 22.8 mmol/L Normal 22.0-30.0 [facility] [place] Comment on above: Performed By: #### H STVEE BMP #### [address] Creatinine mass conc 0.53 mg/dL Normal 0.44-1.03 [facility] [place] Comment on above: Performed By: #### H STEVE BMP #### [address] Creatinine mass conc 167.7270766264 mg/dL Normal [facility] [place] Comment on above: Result Comment: PERF ORMED BY: [place] [address] PATHOLOGIST ETHNOGRAPHIC [employer]ERIALS CONSERVATOR CLAUDIA BAUER M.D. Performed By: #### H STEVE BMP #### [address] Estimated GFR ( Khloe > 60 Normal [facility] [place] Comment on above: Result Comment: GFR estimated reference range: According to KDOQI guidelines, <60 ml/min/1.73m2 is sufficient to diagnose a patient with chronic kidney disease. Performed By: #### H STEVE BMP #### [address] Estimated GFR (Non- Am > 60 Normal [facility] [place] Comment on above: Performed By: #### H STEVE BMP #### [place] [address] [place] Glucose mass conc 101 mg/dL High 70-100 [facility] Comment on above: Result Comment: [place] om Glucose Reference Range is dependent on time and content of last meal. Glucose of more than 200 mg/dL in a nonstressed, ambulatory subject supports the diagnosis of Diabetes Mellitus. ADA recommended reference range Performed By: #### H STEVE BMP #### [place] [address] [place] Potassium molar conc 3.2 mmol/L Low 3.5-5.1 [facility] [place] Comment on above: Performed By: #### H STEVE BMP #### [place] [address] [place] Sodium molar conc 137 mmol/L Normal 136-146 [facility] Comment on above: Performed By: #### H STEVE BMP #### [address] [place] [address] [place] Urea nitrogen mass conc 3 mg/dL Low 9-23 [facility] [place] Comment on above: Performed By: #### H STEVE BMP #### [address] Hepatic Panelon 10-09-2018 Albumin mass conc 3.2 g/dL Normal 3.2-5.5 [facility] Comment on above: Performed By: #### H STEVE BMP #### [address] Albumin/Globulin mass ratio 1.2 {ratio} Normal [facility] [place] Comment on above: Performed By: #### H STEVE BMP #### [address] ALP enzyme act/vol 66 U/L Normal 32-92 [facility] [place] Comment on above: Performed By: #### H STEVE BMP #### [facility] [address] [place] [address] ALT enzyme act/vol 89 U/L High 10-60 [facility] [place] Comment on above: Performed By: #### H STEVE BMP #### [facility] [address] [place] [address] AST enzyme act/vol 156 U/L High 10-42 [facility] [place] Comment on above: Performed By: #### H STEVE BMP #### [facility] [address] [place] [address] Bilirubin mass conc 0.5 mg/dL Normal 0.3-1.2 [facility] Comment on above: Performed By: #### H STEVE BMP #### [facility] [address] [place] [address] Bilirubin,Indirect 0.3 mg/dL Normal [facility] [place] Comment on above: Performed By: #### H STEVE BMP #### [address] Bilirubin.direct mass conc 0.2 mg/dL Normal 0.0-0.4 [facility] [place] Comment on above: Performed By: #### H EPATIC, BMP #### [facility] [address] Globulin mass conc (S) 2.6 g/dL Normal [facility] [place] Comment on above: Performed By: #### H EPATIC, BMP #### [facility] [address] Protein mass conc 5.8 g/dL Low 6.1-7.9 [facility] Comment on above: Performed By: #### H EPATIC, BMP #### [facility] [address] [place] [address] Basic Metabolic Panelon 09-26 Calcium mass conc 9.2 mg/dL Normal 8.2-10.2 [facility] Comment on above: Performed By: #### H EPATIC, BMP, MG, [id number] #### [facility] [address] [place] [address] Chloride molar conc 105 mmol/L Normal 95-114 [facility] Comment on above: Performed By: #### H EPATIC, BMP, MG, [id number] #### [facility] [address] [place] [address] CO2 molar conc 24.1 mmol/L Normal 22.0-30.0 [facility] [place] Comment on above: Performed By: #### H EPATIC, BMP, MG, [id number] #### [facility] [address] [place] [address] Creatinine mass conc 0.54 mg/dL Normal 0.44-1.03 [facility] [place] Comment on above: Performed By: #### H EPATIC, BMP, MG, [id number] #### [facility] [address] [place] [address] Creatinine mass conc 163.6071654295 mg/dL Normal [facility] [place] Comment on above: Performed By: #### H EPATIC, BMP, MG, [id number] #### [facility] [address] [place] [address] Estimated GFR ( Khloe > 60 Normal [facility] [place] Comment on above: Result Comment: GFR estimated reference range: According to KDOQI guidelines, <60 ml/min/1.73m2 is sufficient to diagnose a patient with chronic kidney disease. Performed By: #### H EPATIC, BMP, MG, [id number] #### [address] Estimated GFR (Non- Am > 60 Normal [facility] [place] Comment on above: Performed By: #### H EPATIC, BMP, MG, [id number] #### [address] Glucose mass conc 68 mg/dL Low 70-100 [facility] Comment on above: Result Comment: [place] om Glucose Reference Range is dependent on time and content of last meal. Glucose of more than 200 mg/dL in a nonstressed, ambulatory subject supports the diagnosis of Diabetes Mellitus. ADA recommended reference range Performed By: #### H EPATIC, BMP, MG, [id number] #### [address] Potassium molar conc 3.6 mmol/L Normal 3.5-5.1 [facility] [place] Comment on above: Performed By: #### H EPATIC, BMP, MG, [id number] #### [address] Sodium molar conc 137 mmol/L Normal 136-146 [facility] Comment on above: Performed By: #### H EPATIC, BMP, MG, [id number] #### [address] Urea nitrogen mass conc 4 mg/dL Low 9-23 [facility] [place] Comment on above: Performed By: #### H EPATIC, BMP, MG, [id number] #### [address] Complete Blood Count Auto Di ffon 10-08-2018 Basophils #/vol (Bld) 0.0 10*3/uL Normal 0.0-0.2 [facility] [place] Comment on above: Result Comment: PERF ORMED BY: [address] [place] [address] PATHOLOGIST ETHNOGRAPHIC [employer]S CONSERVATOR CLAUDIA BAUER M.D. Performed By: #### C BC, ETOH, CMP #### [address] Basophils/100 WBC (Bld) 0.4 % Normal . [facility] [place] Comment on above: Performed By: #### C BC, ETOH, CMP #### [address] Eosinophils #/vol (Bld) 0.0 10*3/uL Normal 0.0-0.45 [facility] [place] Comment on above: Performed By: #### C BC, ETOH, CMP #### [address] Eosinophils/100 WBC (Bld) 0.4 % Normal . [facility] [place] Comment on above: Performed By: #### C BC, ETOH, CMP #### [address] Erythrocyte distribution width Ratio (RBC) 17.0 % High 11.9-15.3 [facility] [place] Comment on above: Performed By: #### C BC, ETOH, CMP #### [address] Hematocrit Volume Fraction (Bld) 40.2 % Normal 34.0-46.4 [facility] [place] Comment on above: Performed By: #### C BC, ETOH, CMP #### [address] Hemoglobin mass conc (Bld) 13.6 g/dL Normal 11.8-15.4 [facility] [place] Comment on above: Performed By: #### C BC, ETOH, CMP #### [address] Lymphocytes #/vol (Bld) 1.2 10*3/uL Normal 1.00-4.8 [facility] [place] Comment on above: Performed By: #### C BC, ETOH, CMP #### [address] Lymphocytes/100 WBC (Bld) 33.3 % Normal . [facility] [place] Comment on above: Performed By: #### C BC, ETOH, CMP #### [facility] [address] MCH Entitic mass (RBC) 33.8 g/dL Normal 32.0-35.0 [facility] [place] Comment on above: Performed By: #### C BC, ETOH, CMP #### [address] MCH Entitic mass (RBC) 31.8 pg Normal 24.7-34.3 [facility] [place] Comment on above: Performed By: #### C BC, ETOH, CMP #### [address] MCV Entitic volume (RBC) 94.1 fL Normal 80-100 [facility] [place] Comment on above: Performed By: #### C BC, ETOH, CMP #### [address] Monocytes #/vol (Bld) 0.3 10*3/uL Normal 0.0-0.8 [facility] [place] Comment on above: Performed By: #### C BC, ETOH, CMP #### [address] Monocytes/100 WBC (Bld) 6.8 % Normal . [facility] [place] Comment on above: Performed By: #### C BC, ETOH, CMP #### [facility] [address] [place] [address] Neutrophils #/vol (Bld) 2.2 10*3/uL Normal 1.8-7.7 [facility] [place] Comment on above: Performed By: #### C BC, ETOH, CMP #### [address] Neutrophils/100 WBC (Bld) 59.1 % Normal . [facility] [place] Comment on above: Performed By: #### C BC, ETOH, CMP #### [address] Nucleated RBC/100 WBC Ratio (Bld) 0.1 % Normal 0-0.5 [facility] [place] Comment on above: Performed By: #### C BC, ETOH, CMP #### [address] Platelet mean volume Entitic volume (Bld) 9.3 fL Normal 6.3-10.7 [facility] [place] Comment on above: Performed By: #### C BC, ETOH, CMP #### [address] Platelets #/vol (Bld) 52 10*3/uL Low 150-450 [facility] [place] Comment on above: Performed By: #### C BC, ETOH, CMP #### [address] RBC #/vol (Bld) 4.27 10*6/uL Normal 3.60-5.00 [facility] Comment on above: Performed By: #### C BC, ETOH, CMP #### [address] WBC #/vol (Bld) 3.7 10*3/uL Low 4.5-11.0 [facility] Comment on above: Performed By: #### C BC, ETOH, CMP #### [address] Comprehensive Metabolic Pane danitza 10-08-2018 Albumin mass conc 4.4 g/dL Normal 3.2-5.5 [facility] Comment on above: Performed By: #### C BC, ETOH, CMP #### [address] Albumin/Globulin mass ratio 1.6 {ratio} Normal [facility] [place] Comment on above: Performed By: #### C BC, ETOH, CMP #### [address] ALP enzyme act/vol 81 U/L Normal 32-92 [facility] [place] Comment on above: Performed By: #### C BC, ETOH, CMP #### [address] ALT enzyme act/vol 76 U/L High 10-60 [facility] [place] Comment on above: Performed By: #### C BC, ETOH, CMP #### [facility] [address] [place] [address] [place] AST enzyme act/vol 97 U/L High 10-42 [facility] [place] Comment on above: Performed By: #### C BC, ETOH, CMP #### [facility] [address] [place] [address] [place] Bilirubin mass conc 0.7 mg/dL Normal 0.3-1.2 [facility] Comment on above: Performed By: #### C BC, ETOH, CMP #### [facility] [address] [place] [address] [place] Calcium mass conc 10.3 mg/dL High 8.2-10.2 [facility] Comment on above: Performed By: #### C BC, ETOH, CMP #### [facility] [address] [place] [address] [place] Chloride molar conc 104 mmol/L Normal 95-114 [facility] Comment on above: Performed By: #### C BC, ETOH, CMP #### [place] [address] [place] CO2 molar conc 25.6 mmol/L Normal 22.0-30.0 [facility] [place] Comment on above: Performed By: #### C BC, ETOH, CMP #### [place] [address] [place] Creatinine mass conc 0.62 mg/dL Normal 0.44-1.03 [facility] [place] Comment on above: Performed By: #### C BC, ETOH, CMP #### [place] [address] [place] Creatinine mass conc 128.0619099968 mg/dL Normal [facility] [place] Comment on above: Result Comment: PERF ORMED BY: [place] [address] PATHOLOGIST ETHNOGRAPHIC MATERIALS CONSERVATOR CLAUDIA BAUER M.D. Performed By: #### C BC, ETOH, CMP #### [address] [place] [address] [place] Estimated GFR ( Khloe > 60 Normal [facility] [place] Comment on above: Result Comment: GFR estimated reference range: According to KDOQI guidelines, <60 ml/min/1.73m2 is sufficient to diagnose a patient with chronic kidney disease. Performed By: #### C BC, ETOH, CMP #### [facility] [address] Estimated GFR (Non- Am > 60 Normal [facility] [place] Comment on above: Performed By: #### C BC, ETOH, CMP #### [facility] [address] Globulin mass conc (S) 2.8 g/dL Normal [facility] [place] Comment on above: Performed By: #### C BC, ETOH, CMP #### [address] Glucose mass conc 95 mg/dL Normal 70-100 [facility] Comment on above: Result Comment: [place] Glucose Reference Range is dependent on time and content of last meal. Glucose of more than 200 mg/dL in a nonstressed, ambulatory subject supports the diagnosis of Diabetes Mellitus. ADA recommended reference range Performed By: #### C BC, ETOH, CMP #### [address] Potassium molar conc 4.1 mmol/L Normal 3.5-5.1 [facility] [place] Comment on above: Performed By: #### C BC, ETOH, CMP #### [place] [address] [place] Protein mass conc 7.2 g/dL Normal 6.1-7.9 [facility] Comment on above: Performed By: #### C BC, ETOH, CMP #### [place] [address] [place] Sodium molar conc 140 mmol/L Normal 136-146 [facility] Comment on above: Performed By: #### C BC, ETOH, CMP #### [facility] [address] [place] [address] [place] Urea nitrogen mass conc 4 mg/dL Low 9-23 [facility] [place] Comment on above: Performed By: #### C BC, ETOH, CMP #### [facility] [address] [place] [address] Ethyl Alcohol Profileon 09-26 Ethanol mass conc mg/dL Normal [facility] Comment on above: Performed By: #### C BC, ETOH, CMP #### [facility] [address] [place] [address] Percent Ethanol Test not performed Normal [facility] Comment on above: Result Comment: PERF ORMED BY: [place] [address] PATHOLOGIST ETHNOGRAPHIC MATERIALS CONSERVATOR CLAUDIA BAUER M.D. Performed By: #### C BC, ETOH, CMP #### [address] Hepatic Panelon 10-08-2018 Albumin mass conc 3.7 g/dL Normal 3.2-5.5 [facility] Comment on above: Performed By: #### H EPATIC, BMP, MG, [id number] #### [address] Albumin/Globulin mass ratio 1.5 {ratio} Normal [facility] [place] Comment on above: Performed By: #### H EPATIC, BMP, MG, [id number] #### [facility] [address] [place] [address] ALP enzyme act/vol 70 U/L Normal 32-92 [facility] [place] Comment on above: Performed By: #### H EPATIC, BMP, MG, [id number] #### [facility] [address] [place] [address] ALT enzyme act/vol 77 U/L High 10-60 [facility] [place] Comment on above: Performed By: #### H EPATIC, BMP, MG, [id number] #### [facility] [address] [place] [address] AST enzyme act/vol 142 U/L High 10-42 [facility] [place] Comment on above: Performed By: #### H EPATIC, BMP, MG, [id number] #### [facility] [address] [place] [address] Bilirubin mass conc 0.9 mg/dL Normal 0.3-1.2 [facility] Comment on above: Performed By: #### H EPATIC, BMP, MG, [id number] #### [address] Bilirubin,Indirect 0.7 mg/dL Normal [facility] [place] Comment on above: Performed By: #### H EPATIC, BMP, MG, [id number] #### [address] Bilirubin.direct mass conc 0.2 mg/dL Normal 0.0-0.4 [facility] [place] Comment on above: Performed By: #### H EPATIC, BMP, MG, [id number] #### [address] Globulin mass conc (S) 2.5 g/dL Normal [facility] [place] Comment on above: Performed By: #### H EPATIC, BMP, MG, [id number] #### [address] Protein mass conc 6.2 g/dL Normal 6.1-7.9 [facility] Comment on above: Performed By: #### H EPATIC, BMP, MG, [id number] #### [facility] [address] [place] [address] Magnesiumon 10-08-2018 Magnesium mass conc 1.7 mg/dL Normal 1.6-2.6 [facility] Comment on above: Performed By: #### H EPATIC, BMP, MG, [id number] #### [address] Vit. B12/Folate Profileon Cobalamin (Vitamin B12) mass conc 337 pg/mL Normal 180-914 [facility] [place] Comment on above: Performed By: #### H EPATIC, BMP, MG, [id number] #### [address] [place] [address] [facility] Folate 8.9 ng/mL Normal [facility] [place] Comment on above: Result Comment: Shea te reference range: >5.9 ng/ml The WHO technical consultation on folate and vitamin b12 deficiencies has determined that folate concentrations less than 4 ng/ml are considered deficient. PERFORMED BY: [facility] [address] [place] [id number] PATHOLOGIST ETHNOGRAPHIC [employer]ERIALS CONSERVATOR CLAUDIA BAUER M.D. Performed By: #### H EPATIC, BMP, MG, [id number] #### [facility] [address] [place] [id number] [facility] Vital Signs Date Time Vital Sign Value Performing Clinician Facility 05-12-2023 13:48-0500 Respiratory rate 16 /min Neeraj MUNOZ [facility] 06-05-2020 12:47-0500 BMI (Body Mass Index) 30.04 kg/m2 [facility] 06-05-[facility] 12:47-0500 Body Temperature 98.8 [degF] [facility] 06-05-2020 12:47-0500 Body weight 79.38 kg [facility] 06-05-2020 12:47-0500 BP Diastolic 79 mm[Hg] [facility] 06-05-2020 12:47-0500 BP Systolic 114 mm[Hg] [facility] 06-05-2020 12:47-0500 Height 162.6 cm [facility] 06-05-2020 12:47-0500 Pulse (Heart Rate) 118 /min [facility] 06-05-2020 12:47-0500 Pulse Oximetry 95 % [facility] 06-05-2020 12:47-0500 Respiratory Rate 14 /min [facility] 05-21-2020 18:13-0500 BMI (Body Mass Index) 30.04 kg/m2 [facility] 05-21-2020 18:13-0500 Body Temperature 97.9 [degF] [facility] 05-21-2020 18:13-0500 Body weight 79.38 kg [facility] 05-21-2020 18:13-0500 BP Diastolic 88 mm[Hg] [facility] 05-21-2020 18:13-0500 BP Systolic 122 mm[Hg] [facility] 05-21-2020 18:13-0500 Height 162.6 cm [facility] 05-21-2020 18:13-0500 Pulse (Heart Rate) 109 /min [facility] 05-21-2020 18:13-0500 Pulse Oximetry 97 % [facility] 05-21-2020 18:13-0500 Respiratory Rate 18 /min [facility] 10-11-2019 14:50-0400 BMI (Body Mass Index) 27.12 kg/m2 [facility] 10-11-[facility] 14:50-0400 Body Temperature 97.5 [degF] [facility] 10-11-2019 14:50-0400 Body weight 71.67 kg [facility] 10-11-2019 14:50-0400 BP Diastolic 70 mm[Hg] [facility] 10-11-2019 14:50-0400 BP Systolic 126 mm[Hg] [facility] 10-11-2019 14:50-0400 Height 162.6 cm [facility] 10-11-2019 14:50-0400 Pulse (Heart Rate) 91 /min [facility] 10-11-2019 14:50-0400 Pulse Oximetry 96 % [facility] 10-11-2019 14:50-0400 Respiratory Rate 16 /min [facility] 10-09-2019 08:38-0400 BMI (Body Mass Index) 27.12 kg/m2 Ollie Feng [facility] 10-09-2019 08:38-0400 Body Temperature 98.1 [degF] Ollei Feng [facility] 10-09-2019 08:38-0400 Body weight 71.67 kg Ollie Oneallexa [facility] 10-09-2019 08:38-0400 BP Diastolic 75 mm[Hg] Ollie Feng [facility] 10-09-2019 08:38-0400 BP Systolic 112 mm[Hg] Ollie Feng [facility] 10-09-2019 08:38-0400 Height 162.6 cm Ollie Feng [facility] 10-09-2019 08:38-0400 Pulse (Heart Rate) 89 /min Ollie Feng [facility] 10-09-2019 08:38-0400 Pulse Oximetry 97 % Ollie Feng [facility] 10-09-2019 08:38-0400 Respiratory Rate 16 /min Ollie Feng [facility] 10-07-2019 13:51-0400 BP Diastolic 83 mm[Hg] Gwendolynjewel Tee [facility] 10-07-2019 13:51-0400 BP Systolic 110 mm[Hg] [facility] 10-[facility]-2019 13:51-0400 Pulse (Heart Rate) 76 /min Gwendolyn [facility] 10-07-2019 13:51-0400 Pulse Oximetry 98 % [facility] 10-07-2019 13:51-0400 Respiratory Rate 16 /min [facility] 10-07-2019 12:02-0400 Body Temperature 97.5 [degF] [facility] 11:57-0400 BMI (Body Mass Index) 27.12 kg/m2 Gwendolynjewel Tee [facility] 10-07-2019 11:57-0400 Body weight 71.67 kg Gwendolynjewel Tee [facility] 10-07-2019 11:57-0400 Height 162.6 cm Gwendolynjewel Tee [facility] 08-29-2019 14:15-0500 BP Diastolic 81 mm[Hg] Boone Resendiz [facility] 08-29-2019 14:15-0500 BP Systolic 116 mm[Hg] Bo[place] Resendiz [facility] 08-29-2019 14:15-0500 Pulse (Heart Rate) 84 /min [place] Resendiz [facility] 08-29-2019 14:15-0500 Pulse Oximetry 97 % [place] Resendiz [facility] 08-29-2019 13:01-0500 BMI (Body Mass Index) 23.69 kg/m2 Bo[place] Resendiz [facility] 08-29-2019 13:01-0500 Body Temperature 98.1 [degF] [place] Resendiz [facility] 08-29-2019 13:01-0500 Body weight 62.6 kg [place] Resendiz [facility] 08-29-2019 13:010500 Height 162.6 cm [facility] [facility] System 08-29-2019 13:01-0500 Respiratory Rate 18 /min Boone Resendiz [facility] Encounters Encounter Date Encounter Type Care Provider Facility Start: 06-24-2023 End: 06-24-2023 ambulatory DARNELL Oliver CUTLER Not Available Start: 06-09-2023 End: 06-09-2023 ambulatory DARNELL L CUTLER Not Available Start: 06-02-2023 End: 06-03-2023 ambulatory Neeraj R NILL Facility: [facility] Start: 06-02-2023 End: 06-02-2023 Patient encounter procedure Neeraj R NILL General Surgery [facility] Start: 05-27-2023 End: 05-28-2023 ambulatory IMTIAZ METZ Not Available Start: 05-18-2023 End: 05-19-2023 ambulatory Neeraj R NILL Facility: [facility] Start: 05-18-2023 End: 05-18-2023 Patient encounter procedure Neeraj R NILL General Surgery [facility] Start: 05-12-2023 End: 05-13-2023 ambulatory Neeraj R NILL Facility: [facility] Start: 05-12-2023 End: 05-12-2023 Patient encounter procedure Neeraj R NILL General Surgery [facility] Start: 05-03-2023 ambulatory Neeraj NILL Facility:[facility] Start: 10-09-2021 End: 10-12-2021 Evaluation and management of inpatient DR LARRY TORRES Facility:[facility] Start: 08-30-2021 End: 08-30-[address] GOLD LAY Facility:[facility] Start: 07-04-2021 End: 07-04-[address] OSMIN MCGEE Facility:[facility] Start: 06-04-2021 End: 06-04-2021 ambulatory SILVA SARMIENTO Facility:[facility] Start: 04-26-2021 End: 04-26-[address] BOONE HOLT Facility: Start: 10-09-2020 Patient encounter procedure PHYSICIAN NO [facility] Start: 06-12-2020 End: 06-12-2020 Patient encounter procedure HESHAM BARNES [facility] Start: 06-05-2020 End: 06-05-2020 Emergency department patient visit PHYSICIAN NO [facility] Start: 06-05-2020 End: 06-05-2020 Emergency department patient visit Radha Li Work Phone: [facility] Comment on above: COVID-19 virus infec tion (Primary Dx); Nonintractable headache, unspecified chronicity pattern, unspecified headache type; Myalgia; Fatigue, unspecified type Start: 05-21-2020 End: 05-21-2020 Emergency department patient visit PHYSICIAN NO [facility] Start: 05-21-2020 End: 05-21-2020 Emergency department patient visit Onofre Rowell Work Phone: [facility] Comment on above: COVID-19 virus infec tion (Primary Dx) Start: 2020 End: 2020 [facility] Comment on above: No show inital appoi ntment 01/29/2020 Start: 10-11-2019 End: 10-11-2019 Emergency department patient visit PHYSICIAN [facility] Start: 10-11-2019 End: 10-11-2019 Emergency department patient visit Radha Li Work Phone: [facility] Comment on above: Wound check, abscess (Primary Dx); Dressing change Start: 10-09-2019 End: 10-09-2019 Emergency department patient visit PHYSICIAN [facility] Start: 10-09-2019 End: 10-09-2019 Emergency department patient visit Ollie Feng Work Phone: [facility] Comment on above: Encounter for rechec k of abscess following incision and drainage (Primary Dx) Start: 10-07-2019 End: 10-07-2019 Emergency department patient visit PHYSICIAN [facility] Start: 10-07-2019 End: 10-07-2019 Emergency department patient visit Gwendolyn Tee Work Phone: [facility] Comment on above: Abscess of left [address] st (Primary Dx) Start: 08-29-2019 End: 08-29-2019 Emergency department patient visit BOONE RESENDIZ [facility] Start: 08-29-2019 End: 08-29-2019 Emergency department patient visit Boone Resendiz Work Phone: [facility] Comment on above: Nausea and vomiting, intractability of vomiting not specified, unspecified vomiting type (Primary Dx); Epigastric pain; Alcohol abuse Start: 10-08-2018 End: 10-10-2018 Evaluation and management of inpatient Jericho Barreto Facility:[facility] Procedures Date Procedure Procedure Detail Performing Clinician [...] Phone: Start: 08-29-2019 LIGHT GREEN TOP Ajay Geoffrey Duran Work Phone: Start: 08-29-2019 Lipase [Enzymatic activity/volume] in Serum or Plasma Ajay Duran Work Phone: Start: 08-29-2019 RAINBOW DRAW Ajay Duran Work Phone: Start: 08-29-2019 Urinalysis Ajay Duran Work Phone: Start: 08-29-2019 URINE BERNARD CONTAINER Ajay Duran Work Phone: Start: 08-29-2019 URINE YELLOW CONTAINER Ajay Duran Work Phone: section Neeraj Oliver Mastotomy with drain age of deep abscess Neeraj MUNOZ Plan of Treatment Date Care Activity Detail Author Start: 06-12-2020 End: 06-12-2020 Telemedicine 06/12/2020 Telemedicine Primary Care Hesham Barnes, SOCIAL SERVICES AIDE [address] [place] [address] [phone] [facility] Start: 05-22-2020 End: 05-22-2020 Office Visit 05/22/2020 Office Visit Obstetrics and Gynecology Franklyn Gabriel MD [address] [place] [address] [phone] [facility] Start: 02-27-2020 Influenza vaccinatio n given Sequential Influenza Vaccine (#1) [facility] Start: 02-26-2019 Influenza vaccinatio n given Sequential Influenza Vaccine (#1) [facility] Start: 2005 Hepatitis C antibody , confirmatory test Hepatitis C Screening [facility] Start: 2002 HIV screening HIV Screening [facility] Start: 1999 Adolescent depressio n screening assessment Depression Screening (PHQ9) [facility] Start: 1990 History and physical examination, annual for health maintenance Wellness Visit [facility] Start: 1987 Depression screening using PHQ-9 (Patient Health Questionnaire 9) score Depression Screening (PHQ9) [facility] Start: 1987 Screening for malign ant neoplasm of cervix Pap Smear [facility] Start: 1987 Tetanus vaccination Tetanus: Every 1 0yrs [facility] End: 10-07-2019 Aerobic microbial culture Wound Aerobic Culture Microbiology Routine Once for 1 Occurrences starting 10/07/2019 until 10/07/2019 [facility] Comment on above: Once for 1 Occurrenc es starting 10/07/2019 until 10/07/2019 Aerobic microbial culture Wound Aerobic Culture Microbiology Routine 10/07/2019 1:30 PM EDT [facility] End: 10-07-2019 Wound Anaerobic Culture Wound Anaerobic Culture Microbiology Routine Once for 1 Occurrences starting 10/07/2019 until 10/07/2019 [facility] Comment on above: Once for 1 Occurrenc es starting 10/07/2019 until 10/07/2019 Wound Anaerobic Culture Wound An aerobic Culture Microbiology Routine 10/07/2019 1:30 PM EDT [facility] Immunizations Immunization Date Immunization Notes Care Provider Ceasar cotto NEGATED: Highlighted row has not occurred!05-12-2023 influenza virus vaccine, unspecified formulation Neeraj MUNOZ [facility] Payers Date Payer Category Payer Unknown [id number] 2019 Private Health Insurance MIAN Mark IGNA CHOICE FUND-ANY CHOICE FUND [id number] 2019-Present [id number] 2019 Private Health Insurance [id number] 2018 Medicaid [employer] D MEDICAID [employer] MEDICAID [id number] 2018-Present [id number] 2018 Private Health Insurance xxx [id number] 2018 Self-pay 2018 Unknown [id number] 2015 Unknown [id number] 1987 Unknown [id number] 2.16.840.1.375654.3.579.2. 903 1987 Unknown [id number] 2.16.840.1.631643.3.579.2. 903 1987 Unknown [id number] 2.16.840.1.754436.3.579.2. 903 1987 Unknown [id number] 2.16.840.1.162643.3.579.2. 903 1987 Unknown [id number] 2.16.840.1.407219.3.579.2. 903 1987 Unknown [id number] 2.16.840.1.295664.3.579.2. 903 1987 Unknown [id number] 2.16.840.1.123385.3.579.2. 903 1987 Unknown [id number] 2.16.840.1.168294.3.579.2. 903 1987 Unknown [id number] 2.16.840.1.055541.3.579.2. 593 1987 Unknown [id number] 2.16.840.1.423770.3.579.2. 593 1987 Unknown [id number] 2.16.840.1.840157.3.579.2. 593 1987 Unknown [id number] 2.16.840.1.679914.3.579.2. 593 1987 Unknown [id number] 2.16.840.1.723734.3.579.2. 593 1987 Unknown [id number] 2.16.840.1.422383.3.579.2. 727 1987 Unknown [id number] 2.16.840.1.959573.3.579.2. 727 1987 Unknown [id number] 2.16.840.1.966672.3.579.2. 727 1987 Unknown [id number] 2.16.840.1.071991.3.579.2. 727 1987 Unknown [id number] 2.16.840.1.750070.3.579.2. 727 1987 Unknown [id number] 2.16.840.1.906941.3.579.2. 9 1987 Unknown [id number] 2.16.840.1.025684.3.579.2. 1258 1987 Unknown [id number] 2.16.840.1.853049.3.579.2. 1259 1959 Private Health Insurance [id number] 1959 Unknown [id number] Unknown [id number] 2.16.840.1.672114.3.579.2. 531 Social History Date Type Detail Facility Start: 08-29-2019 End: 06-05-2020 Tobacco smoking status IAIS Current every day smoker [facility] History of tobacco use Cigarette Sm[facility] Start: 08-29-2019 End: 06-05-2020 Cigarettes smoked current (pack per day) - Reported [facility] Start: 08-29-2019 End: 06-05-2020 Alcohol intake Current drinker of alcohol (finding) [facility] Start: 08-29-2019 Alcohol Comment daily [facility] Sex Assigned At Not on file [facility] Start: 10-07-2019 Alcohol Comment socially [facility] Exposure to SARS-CoV -2 (event) Unable to assess [facility] Start: 05-21-2020 End: 06-05-2020 Tobacco use and exposure [facility] Exposure to SARS-CoV -2 (event) Yes [facility] Start: 05-12-2023 Tobacco smoking status Heavy t obacco smoker (finding) [facility] Tobacco smoking status Never [facility] Sex Assigned At Female [facility] Functional Status Date Assessment Result Facility 05-12-2023 Functional Status N/A [facility] Evaluation + Plan note Note Date & Type Note Facility Evaluation + Plan note Future Appointments Appointment Date:05/18/2023 01:00:00 PM Scheduled Provider:TAMMY DELGADO, Neeraj Hendrix Location:[facility] Appointment Type: Post Op 15 [facility] Hospital course Narrative Note Date & Type Note Facility Hospital course Narrative No data available for this section [facility] Discharge instructions Note Date & Type Note Facility Hospital Discharge instructions No data available for this section [facility] Progress note Note Date & Type Note Facility Progress note No data available for this section [facility] Summary Purpose Family History No Family History Records FoundNo Family History Records FoundNo Family History Records FoundNo Family History Records Found No data available for this section No data available for this section No data available for this section No Family History Records FoundNo Family History Records Found Advance Directives No Advanced Directives Records FoundDocuments on File Type Date Recorded Patient Conductor/Engineer Expl anation Advance Directives and Livin g Will 08/29/2019 1:59 PM Documents on File Type Date Recorded Patient Conductor/Engineer Expl anation Advance Directives and Livin g Will 10/07/2019 12:14 PM Documents on File Type Date Recorded Patient Conductor/Engineer Expl anation Advance Directives and Livin g Will 10/09/2019 8:52 AM Documents on File Type Date Recorded Patient Conductor/Engineer Expl anation Advance Directives and Livin g Will 10/11/2019 8:52 AM Documents on File Type Date Recorded Patient Conductor/Engineer Expl anation Advance Directives and Livin g Will 05/21/2020 8:52 AM Documents on File Type Date Recorded Patient Conductor/Engineer Expl anation Advance Directives and Livin g Will 06/05/2020 8:52 AM Discharge Instructions * Attachments The following attachments cannot be sent through Care Everywhere. * Abdominal Pain (Tunisian) * Nausea and Vomiting (Tunisian) documented in this encounter* Attachments The following attachments cannot be sent through Care Everywhere. * Abscess: Skin (Tunisian) documented in this encounter* Attachments The following attachments cannot be sent through Care Everywhere. * Abscess: Skin (Tunisian) documented in this encounter* Attachments The following attachments cannot be sent through Care Everywhere. * Abscess: Skin (Tunisian) documented in this encounter* Instructions* Ajay Duran PA-C - 05/21/2020 Stay home and away from other people. Rest, fluids, Tylenol. Return for difficulty breathing, uncontrolled fevers, or any other problems or concerns. You did test positive for COVID-19 today. * Attachments The following attachments cannot be sent through Care Everywhere. * COVID-19 SELF ISOLATION DISCHARGE INSTRUCTIONS * Coronavirus Disease (COVID-19): General Info (Tunisian) documented in this encounter* Attachments The following attachments cannot be sent through Care Everywhere. * Fatigue (Tunisian) * Coronavirus Disease (COVID-19): General Info (Tunisian) * COVID-19: Taking Care of Yourself If You Have It: Video (Tunisian) * Myalgia (Tunisian) documented in this encounter Assessments Diagnosis Nausea [...] section and content) DATE CREATED AUTHOR 10/10/2018 [facility] DATE CREATED AUTHOR AUTHOR'S ORGANIZ ATION 06/13/2020 [facility] DATE CREATED AUTHOR AUTHOR'S ORGANIZ ATION 10/09/2020 [facility] DATE CREATED AUTHOR AUTHOR'S ORGANIZ ATION 12/17/2021 [facility] DATE CREATED AUTHOR AUTHOR'S ORGANIZ ATION 06/07/2023 [facility] DATE CREATED AUTHOR AUTHOR'S ORGANIZ ATION 06/25/2023 [facility] EPIC Reason for Visit (unrecogniz ed section and content) Reason Comments Abdominal Pain Reason Comments Abscess Reason Comments Wound Check Reason Comments No show inital appointment 01/29/2020 Reason Comments Cough Fatigue Reason Comments covid+ Headache Generalized Body Aches Ajay Duran PA-C - 08/29/2019 1:35 PM Shannan Olsen, RN - 08/29/2019 1:02 PM Shannan Olsen RN - 08/29/2019 12:59 PM Maria Elena Francis CNP - 10/07/2019 12:33 PM EDT ED Notes (unrecognized secti on and content) [facility] ED Physician Note: NAME: Shannan Carter 34 y.o. CSN: [id number] PCP: Physician No Clinical Impression: 1. Nausea [...] for 10 days . Follow-up Information 1. [facility] - Primary Care Services. Why: Recheck of todays complaint [address] [address] 2. Miguel Sarkar III, MD. Specialties: General Surgery, Interventional Radiology, Breast Surgery Why: Recheck of todays complaint [address] [facility] [address] 3. [facility] Emergency Department. Specialty: Emergency Medicine Why: If symptoms worsen [address] [place] [address] Contact information for after-discharge care Follow-up information [...] file Gets together: Not on file Attends baptism service: Not on file Active member of [...] % 08/29/19 1400 113/85 94 96 % 03/03/20 1301 123/85 98.1 F (36.7 C) Oral [...] Abnormal; Notable for the following components: Specific [place] 1.002 (*) Blood, Urine Large (*) All [...] Procedure Abnormality Status --------- ------ CBC Auto Differential[[id number]] Abnormal Final result Please view results for these tests on the individual orders. CT Abdomen Pelvis With IV Contrast Only Final Result 1. Fairly diffuse colonic wall thickening that may reflect incomplete bowel distention and spasm versus a mild colitis. There is no bowel obstruction. The appendix is normal. 2. Hepatic steatosis. Workstation ID: [id number] Procedures: Procedures ED Course/ Medical Decision Making: [...] hypertension. . Ajay Duran PA-C ED Physician [employer] Sales Director [facility] Emergency Department (Please note that portions of this note have been completed with a voice recognition software. Efforts were made to correct any errors, but occasionally words are mis-transcribed.) Ajay Duran PA-C 08/29/19 1511 Also reports that she went on an alcohol binge last weekend which flared it up. Pt reports Its my pancreas. States she is usually seen at [facility] and recently moved here, has a history of pancreatitis. documented in this encounter Associated Order(s): Incision/Drainage [facility] ED Physician Note: NAME: Shannan Carter 34 y.o. CSN: [id number] PCP: Physician No Chief Complaint: Abscess Clinical [...] or uses a tobacco product, I did dianetic counselor them on benefits and resources of [...] Take with food . Follow-up Information 1. [facility] - Primary Care Services. Why: for symptom reheck [address] [address] 2. [facility] Emergency Department. Specialty: Emergency Medicine Why: If symptoms worsen [address] [place] [address] Contact information for after-discharge care Follow-up information [...] of the left breast surrounding her area Huan. Patient reports associated drainage. Denies any fever, [...] immunocompromised or diabetic. History provided by: Patient interpreter for the deaf used: No Abscess Associated symptoms: no fever, [...] file Gets together: Not on file Attends baptism service: Not on file Active member of [...] Wound treatment: wound left open Packing material: 1/4 in iodoform gauze Patient tolerance: Patient tolerated the procedure well with no immediate complications Note: To expedite correspondence this note was generated by [employer] voice recognition software. Some grammatical or spelling errors may occur using the system. ARI López, ENP-C ED Nurse Practitioner [facility] Emergency Department (Please note that portions of this note have been completed with a voice recognition software. Efforts were made to correct any errors, but occasionally words are mis-transcribed.) Maria Elena West CNP 10/07/19 1439 Patient states, I had one here before 2 or 3 years ago. Patient states, I have an abscess on my boob. documented in this encounter [facility] ED Physician Note: NAME: Shannan Carter 34 y.o. CSN: [id number] PCP: Physician No ED Course / Medical [...] file Gets together: Not on file Attends baptism service: Not on file Active member of [...] Drainage from breat noted think and pus-like [facility] ED Physician Note: NAME: Shannan Carter 34 y.o. CSN: [id number] PCP: Physician No ED Course / Medical [...] does lift heavy boxes. Recommend follow-up with [facility] in a week for recheck. Clinical Impression: [...] file Gets together: Not on file Attends baptism service: Not on file Active member of [...] hypertension. . This chart was documented with Instant [employer] system. There may be spelling errors as a result. Colin Loaiza PA-C [facility] Emergency Department (Please note that portions [...] I came here. documented in this encounter [facility] ED Physician Note: NAME: Shannan Carter 35 y.o. CSN: [id number] PCP: Physician No Clinical Impression: 1. COVID-19 virus infection Disposition: Patient is being discharged to home Follow-up Information 1. [facility]. Why: Recheck of todays complaint [address] [facility] [address] [phone] 2. [facility] Emergency Department. Specialty: Emergency Medicine Why: If symptoms worsen [address] [place] [address] Contact information for after-discharge care Follow-up information [...] file Gets together: Not on file Attends baptism service: Not on file Active member of [...] at the following links: For Healthcare Providers: https://www.Noteleaf.gov/media/353317/download For Patients: https://www.Noteleaf.gov/media/004835/download No orders to display Procedures: Procedures ED [...] hypertension. . Ajay Duran PA-C ED Physician [employer] Sales Director [facility] Emergency Department (Please note that portions of this note have been completed with a voice recognition software. Efforts were made to correct any errors, but occasionally words are mis-transcribed.) Ajay Duran PA-C 05/21/20 1904 Pt presents to ED with c/o cough and fatigue that started Wednesday. Pt states that she lives with someone who is positive for covid documented in this encounter [facility] ED Physician Note: NAME: Shannan Carter 35 y.o. CSN: [id number] PCP: Physician No Clinical Impression: 1. COVID-19 [...] printed (June 12 at 2 pm) [address] [facility] [address] Contact information for after-discharge care Follow-up information [...] Toradol IM, I spoke with social work specialist who arranged for an outpatient appointment with her urgently, neuro exam is nonfocal, she is making informed decision. I discussed with the patient supportive care, signs to return to ED, infectious/neuro warning signs, follow up with pcp; questions answered; patient understands and agrees with plan; . . If patient is currently a smoker or uses a tobacco product, I did dianetic counselor them on benefits and resources of [...] file Gets together: Not on file Attends baptism service: Not on file Active member of [...] Procedures: Procedures Radha Li DO ED Physician [facility] Emergency Department Radha Li DO 06/05/20 [...] vomiting Boone Resendiz MD ED Attending Physician [facility] Emergency Department documented in this encounter [...] Personnel Name: Ashlyn Potter DO Address: Address: [facility] [place]chor Pandya, [facility], [address] Personnel Name: Ashlyn Potter DO Address: Address: [facility] [place] Pandya [facility] [place], [address] Personnel Name: Ashlyn Potter DO Address: Address: [facility] [place] Pandya [facility], [address] FOR RECORDS PERTAINING TO PATIENTS WHO [...] BE BASED ON THE PRIMARY CLINICAL RECORDS. [employer] [facility]. provides no warranty or guarantee of the accuracy or completeness of information in this document.
[2023-07-13 10:09] LABS: Age Gdln ACOG Testing Note (.); HPV Aptima Negative (Negative); IGP, Aptima HPV, rfx 16/18,45 Note (.)
== END 2023-07-07 20:39 | disposition home or self-care (01) ==
LOC: LAB 20:38
PROVIDERS: Visit Provider Physician Assistant
DX: Z01.419 Encounter for gynecological examination (general) (routine) without abnormal findings (principal)
CPT/HCPCS: 87624; G0145

== ENCOUNTER 2023-07-16 12:46 | Outpatient (OUT) | payer OTHER, SELFPAY ==
--- OUTSIDE RECORDS SUMMARY | 2023-07-16 12:49 | XMS_ITS | CCD ---
Author Name Unknown Address [address] [place] [address] Organization [facility] Care Team Providers Care Glass [employer] Blank[employer] Machine Feeder Name Role Phone Jericho Barreto Attending Unavailable [...] Consulting Unavailable Ashlyn Potter Primary Care Physician [phone] Neeraj MUNOZ Attending Unavailable NILL, Neeraj Hendrix Attending Unavailable NILL, Neeraj Hendrix Attending Unavailable CUTDARNELL DAMON Attending Unavailable ASHLYN DON Attending Unavailable IMTIAZ METZ Attending Unavailable CUTMARISOL, DARNELL Oliver Attending Unavailable Allergies Allergy Classification Reported Allergen(s) Allergy Type Date of Onset Reaction(s) Facility (11 sources) Penicillins; Translations: [PENICILLINS] Drug allergy (disorder) [address] [place] [address] Repository (5 sources) Penicillin; Translations: [penicillin] Drug Allergy [facility] Repository (3 sources) Tape 1 Propensity to adverse reactions to substance Redness, Itching [facility] Comment on above: plastic tape (1 source) Adhesive Tape; Translations: [Tape] Propensity to adverse reactions (disorder) [facility] Repository Medications Current Medications Medication Drug Class(es) [...] [PROC AND TX NOT CARRIED OUT PT OT RSN] Onset: 09-02-2021 Episodic Unclassified (1 source) [...] Range Facility [facility] 06-07-2023 Lab Reports [id number]#1 .00TIFF [facility] Report[facility] 06-05-2023 Lab Reports [id number]#1 .00TIFF Normal [facility] 06-04-2023 Lab Reports [id number]#1 .00TIFF Normal [facility] Lab Reports [id number]#1 .00TIFF [facility] Ambulatory Visit Summaryon 07-18-2022 Ambulatory Visit Summary SHANNAN LOPEZ :1985 Visit Date:05/18/2023 Ambulatory Visit Instructions Your Diagnosis Left breast abscess Your Care Team Attending Physician - TAMYM DELGADO, Neeraj Hendrix Primary Care Physician - [...] for choosing us for your care. Normal [facility] General Surgery Office/Clini c Noteon 05-18-2023 General Surgery Office/Clinic Note Chief Complaint post operative follow up HPI Staff 18 day post operative follow up post I/D left breast abscess. Completing daily dressing changes at [facility]. Reports moderate intermittent discomfort, taking Ibuprofen [...] inactivated - Not Given Patient Refuses Normal [facility] Comment on above: Result Comment: Elec tronically [...] dressing changes daily at infusion center at [facility]; completed course of antibiotics; taking ibuprofen [...] revision if areolar skin remains retracted. [facility] Pres[facility], daily dressing change, Complete daily damp [...] inactivated - Not Given Patient Refuses Normal [facility] Comment on above: Result Comment: Elec tronically [...] you for choosing us for your care. [facility] 05-11-2023 Lab Reports [id number]#1. 00TIFF [facility] Pathology Noteon 05-10-2023 Pathology Note [id number]#1 .00TIFF [facility] Consultation Noteon 05-05-20 Consultation Note [id number]#1 .00TIFF [facility] Consultation Note [id number]#1 .00TIFF [facility] Operative Reporton Operative Report [id number]#1 .00TIFF [facility] Consultation Noteon 05-04-20 Consultation Note [id number]#1 .00TIFF [facility] ED Note-Physicianon 05-04-20 ED Note-Physician [id number]#1 .00TIFF [facility] ED Note-Physician [id number]#1 .00TIFF Normal [facility] AMMONIAon 10-12-2021 Ammonia (P) [Moles/Vol] 21 umol/L Normal 11-32 [facility] Comment on above: Performed By: #### P TT, PT #### [facility] [address] [place] [address] Dr. Celi Guerin AMYLASEon 10-12-2021 Amylase [Catalytic activity/Vol] 535 U/L Critically high 25-115 [facility] Comment on above: Result Comment: repe ated Performed By: #### C MP, LIPA, ASHLYN #### [facility] [address] [place] [address] Dr. Celi Guerin CBC AUTO DIFFon 10-12-2021 BASO # 0.0 103/ul Normal 0.0-0.1 [facility] Comment on above: Performed By: #### P TT, PT #### [facility] [address] [place] [address] Dr. Celi Guerin Basophils/100 WBC (Bld) 0.1 % Critically low 0.2-2.0 [facility] Comment on above: Performed By: #### P TT, PT #### [facility] [address] [place] [address] Dr. Celi Guerin EO # 0.0 103/ul Normal 0.0-0.7 [facility] Comment on above: Performed By: #### P TT, PT #### [facility] [address] [place] [address] Dr. Celi Guerin Eosinophils/100 WBC (Bld) 0.4 % Critically low 0.9-7.0 [facility] Comment on above: Performed By: #### P TT, PT #### [facility] [address] [place] [address] Dr. Celi Guerin Erythrocyte distribution width (RBC) [Ratio] 18.6 % Critically high 11.0-15.0 [facility] Comment on above: Performed By: #### P TT, PT #### [facility] [address] [place] [address] Dr. Celi Guerin Hematocrit (Bld) [Volume fraction] 29.3 % Critically low 36.0-48.0 [facility] Comment on above: Performed By: #### P TT, PT #### [facility] [address] [place] [address] Dr. Celi Guerin Hemoglobin (Bld) [Mass/Vol] 9.4 g/dL Critically low 12.0-16.0 [facility] Comment on above: Performed By: #### P TT, PT #### [facility] [address] [place] [address] Dr. Celi Guerin IG # 0.04 10e3/ul Critically high 0.00-0.03 [facility] Comment on above: Performed By: #### P TT, PT #### [facility] [address] [place] [address] Dr. Celi Guerin IG % 0.5 % Normal 0.0-0.5 [facility] Comment on above: Performed By: #### P TT, PT #### [facility] [address] [place] [address] Dr. Celi Guerin LYMPH # 1.1 103/ul Critically low 1.2-3.8 [facility] Comment on above: Performed By: #### P TT, PT #### [facility] [address] [place] [address] Dr. Celi Guerin Lymphocytes/100 WBC (Bld) 14.2 % Critically low 20.5-60.0 [facility] Comment on above: Performed By: #### P TT, PT #### [facility] [address] [place] [address] Dr. Celi Guerin MANUAL DIFF REQ NO Normal [facility] Comment on above: Performed By: #### P TT, PT #### [facility] [address] [place] [address] Dr. Celi Guerin MCH (RBC) [Entitic mass] 25.8 pg Critically low 26.7-34.0 [facility] Comment on above: Performed By: #### P TT, PT #### [facility] [address] [place] [address] Dr. Celi Guerin MCHC (RBC) [Mass/Vol] 32.1 g/dL Normal 29.9-35.2 [facility] Comment on above: Performed By: #### P TT, PT #### [facility] [address] [address] [address] Celi Guerin MCV (RBC) [Entitic vol] 80.5 fL Critically low 81.0-99.0 [facility] Comment on above: Performed By: #### P TT, PT #### [facility] [address] [address] [address] Celi Guerin MONO # 0.7 103/ul Normal 0.3-0.8 [facility] Comment on above: Performed By: #### P TT, PT #### [facility] [address] [place] [address] Dr. Celi Guerin Monocytes/100 WBC (Bld) 8.4 % Normal 1.7-12.0 [facility] Comment on above: Performed By: #### P TT, PT #### [facility] [address] [place] [address] Dr. Celi Guerin NEUT # 5.9 103/ul Normal 1.4-6.5 [facility] Comment on above: Performed By: #### P TT, PT #### [facility] [address] [place] [address] Dr. Celi Guerin Neutrophils/100 WBC (Bld) 76.4 % Critically high 43.0-75.0 [facility] Comment on above: Performed By: #### P TT, PT #### [facility] [address] [address] [address] Celi Guerin PLT 63 103/ul Critically low 150-450 [facility] Comment on above: Performed By: #### P TT, PT #### [facility] [address] [place] [address] Dr. Celi Guerin RBC 3.64 106/ul Critically low 4.20-5.40 [facility] Comment on above: Performed By: #### P TT, PT #### [facility] [address] [place] [address] Dr. Celi Guerin WBC 7.8 103/ul Normal 4.0-11.0 [facility] Comment on above: Performed By: #### P TT, PT #### [facility] [address] [place] [address] Dr. Celi Guerin LIPASEon 10-12-2021 Lipase [Catalytic activity/Vol] U/L Critically high 23.0-300.0 [facility] Comment on above: Result Comment: repe ated Performed By: #### E ARTEMIO ESTRELLA #### [facility] [address] [place] [address] Dr. Celi Guerin PROF 14(COMP METB)on 022 Albumin [Mass/Vol] 2.9 g/dL Critically low 3.4-5.0 [facility] Comment on above: Performed By: #### C MP, LIPA, ASHLYN #### [facility] [address] [place] [address] Dr. Celi Guerin Albumin/Globulin [Mass ratio] 1.0 {ratio} Normal [facility] Comment on above: Performed By: #### C MP, LIPA, ASHLYN #### [facility] [address] [place] [address] Dr. Celi Guerin ALP [Catalytic activity/Vol] 88 U/L Normal 46-116 [facility] Comment on above: Performed By: #### C MP, LIPA, ASHLYN #### [facility] [address] [place] [address] Dr. Celi Guerin ALT [Catalytic activity/Vol] 34 U/L Normal 14-59 [facility] Comment on above: Performed By: #### C MP, LIPA, ASHLYN #### [facility] [address] [place] [address] Dr. Celi Guerin Anion gap [Moles/Vol] 12.9 mmol/L Normal [facility] Comment on above: Performed By: #### C MP, LIPA, ASHLYN #### [facility] [address] [place] [address] Dr. Celi Guerin AST [Catalytic activity/Vol] 70 U/L Critically high 15-37 [facility] Comment on above: Performed By: #### C EDE MONCADA, ASHLYN #### [facility] [address] [place] [address] Dr. Celi Guerin Bilirubin [Mass/Vol] 1.2 mg/dL Normal 0.2-1.3 [facility] Comment on above: Performed By: #### C PRIYANKA MONCADAA, ASHLYN #### [facility] [address] [place] [address] Dr. Celi Guerin Calcium [Mass/Vol] 7.4 mg/dL Critically low 8.5-10.1 [facility] Comment on above: Performed By: #### C EDE MONCADA, ASHLYN #### [facility] [address] [place] [address] Dr. Celi Guerin Chloride [Moles/Vol] 98 mmol/L Normal 98-107 [facility] Comment on above: Performed By: #### C PRIYANKA MONCADAA, ASHLYN #### [facility] [address] [place] [address] Dr. Celi Guerin CO2 [Moles/Vol] 23.9 mmol/L Normal 22.0-30.0 [facility] Comment on above: Performed By: #### C PRIYANKA MONCADAA, ASHLYN #### [facility] [address] [place] [address] Dr. Celi Guerin Creatinine [Mass/Vol] 0.41 mg/dL Critically low 0.52-1.04 [facility] Comment on above: Performed By: #### C ANTWAN LIPA, ASHLYN #### [facility] [address] [place] [address] Dr. Celi Guerin EGFR-AF SOMALI >60 Normal >=60 [facility] Comment on above: Performed By: #### C PRIYANKA MONCADAA, ASHLYN #### [facility] [address] [place] [address] Dr. Celi Guerin EGFR-NON AF SOMALI >60 Normal >=60 [facility] Comment on above: Performed By: #### C ANTWAN LIPA, ASHLYN #### [facility] [address] [address] [address] Celi Guerin Globulin (S) [Mass/Vol] 2.9 g/dL Normal [facility] Comment on above: Performed By: #### C EDE MONCADA, ASHLYN #### [facility] [address] [place] [address] Dr. Celi Guerin Glucose [Mass/Vol] 82 mg/dL Normal 74-106 [facility] Comment on above: Performed By: #### C ANTWAN LIPA, ASHLYN #### [facility] [address] [place] [address] Dr. Celi Guerin Potassium [Moles/Vol] 2.8 mmol/L Critically low 3.4-5.0 [facility] Comment on above: Result Comment: repe ated Performed By: #### C PRIYANKA MONCADAA, ASHLYN #### [facility] [address] [place] [address] Dr. Celi Guerin Protein [Mass/Vol] 5.8 g/dL Critically low 6.1-8.2 [facility] Comment on above: Performed By: #### C ANTWAN LIPA, ASHLYN #### [facility] [address] [place] [address] Dr. Celi Guerin Sodium [Moles/Vol] 131 mmol/L Critically low 137-145 [facility] Comment on above: Performed By: #### C ANTWAN LIPA, ASHLYN #### [facility] [address] [place] [address] Dr. Celi Guerin Urea nitrogen [Mass/Vol] 2.0 mg/dL Critically low 7.0-18.0 [facility] Comment on above: Performed By: #### C ANTWAN LIPA, ASHLYN #### [facility] [address] [place] [address] Dr. Celi Guerin Urea nitrogen/Creatinine [Mass ratio] 4.9 mg/mg Normal [facility] Comment on above: Performed By: #### C ANTWAN LIPA, ASHLYN #### [facility] [address] [place] [address] Dr. Celi Guerin AMMONIAon 10-11-2021 Ammonia (P) [Moles/Vol] 23 umol/L Normal 11-32 [facility] Comment on above: Performed By: #### D RUGRPD #### [facility] [address] [place] [address] Dr. Celi Guerin AMYLASEon 10-11-2021 Amylase [Catalytic activity/Vol] 1078 U/L Critically high 25-115 [facility] Comment on above: Result Comment: repe ated Performed By: #### D RUGRPD #### [facility] [address] [place] [address] Dr. Celi Guerin CBC AUTO DIFFon 10-11-2021 BASO # 0.0 103/ul Normal 0.0-0.1 [facility] Comment on above: Performed By: #### P TT, PT #### [facility] [address] [place] [address] Dr. Celi Guerin Basophils/100 WBC (Bld) 0.1 % Critically low 0.2-2.0 [facility] Comment on above: Performed By: #### P TT, PT #### [facility] [address] [place] [address] Dr. Celi Guerin EO # 0.0 103/ul Normal 0.0-0.7 [facility] Comment on above: Performed By: #### P TT, PT #### [facility] [address] [place] [address] Dr. Celi Guerin Eosinophils/100 WBC (Bld) 0.1 % Critically low 0.9-7.0 [facility] Comment on above: Performed By: #### P TT, PT #### [facility] [address] [place] [address] Dr. Celi Guerin Erythrocyte distribution width (RBC) [Ratio] 18.5 % Critically high 11.0-15.0 [facility] Comment on above: Performed By: #### P TT, PT #### [facility] [address] [place] [address] Dr. Celi Guerin Hematocrit (Bld) [Volume fraction] 33.2 % Critically low 36.0-48.0 [facility] Comment on above: Performed By: #### P TT, PT #### [facility] [address] [address] [address] Celi Guerin Hemoglobin (Bld) [Mass/Vol] 10.5 g/dL Critically low 12.0-16.0 [facility] Comment on above: Performed By: #### P TT, PT #### [facility] [address] [place] [address] Dr. Celi Guerin IG # 0.03 10e3/ul Normal 0.00-0.03 [facility] Comment on above: Performed By: #### P TT, PT #### [facility] [address] [place] [address] Dr. Celi Guerin IG % 0.4 % Normal 0.0-0.5 [facility] Comment on above: Performed By: #### P TT, PT #### [facility] [address] [place] [address] Dr. Celi Guerin LYMPH # 0.8 103/ul Critically low 1.2-3.8 [facility] Comment on above: Performed By: #### P TT, PT #### [facility] [address] [place] [address] Dr. Celi Guerin Lymphocytes/100 WBC (Bld) 10.6 % Critically low 20.5-60.0 [facility] Comment on above: Performed By: #### P TT, PT #### [facility] [address] [place] [address] Dr. Celi Guerin MANUAL DIFF REQ NO Normal [facility] Comment on above: Performed By: #### P TT, PT #### [facility] [address] [place] [address] Dr. Celi Guerin MCH (RBC) [Entitic mass] 25.9 pg Critically low 26.7-34.0 [facility] Comment on above: Performed By: #### P TT, PT #### [facility] [address] [place] [address] Dr. Celi Guerin MCHC (RBC) [Mass/Vol] 31.6 g/dL Normal 29.9-35.2 [facility] Comment on above: Performed By: #### P TT, PT #### [facility] [address] [address] [address] Celi Guerin MCV (RBC) [Entitic vol] 82.0 fL Normal 81.0-99.0 [facility] Comment on above: Performed By: #### P TT, PT #### [facility] [address] [address] [address] Celi Guerin MONO # 0.4 103/ul Normal 0.3-0.8 [facility] Comment on above: Performed By: #### P TT, PT #### [facility] [address] [address] [address] Celi Guerin Monocytes/100 WBC (Bld) 5.6 % Normal 1.7-12.0 [facility] Comment on above: Performed By: #### P TT, PT #### [facility] [address] [place] [address] Dr. Celi Guerin NEUT # 6.4 103/ul Normal 1.4-6.5 [facility] Comment on above: Performed By: #### P TT, PT #### [facility] [address] [place] [address] Dr. Celi Guerin Neutrophils/100 WBC (Bld) 83.2 % Critically high 43.0-75.0 [facility] Comment on above: Performed By: #### P TT, PT #### [facility] [address] [place] [address] Dr. Celi Guerin Platelet mean volume (Bld) [Entitic vol] 11.9 fL Normal 9.5-13.5 [facility] Comment on above: Performed By: #### P TT, PT #### [facility] [address] [address] [address] Celi Guerin PLT 59 103/ul Critically low 150-450 [facility] Comment on above: Performed By: #### P TT, PT #### [facility] [address] [address] [address] Celi Guerin RBC 4.05 106/ul Critically low 4.20-5.40 [facility] Comment on above: Performed By: #### P TT, PT #### [facility] [address] [place], [place] [address] Dr. Celi Guerin WBC 7.7 103/ul Normal 4.0-11.0 [facility] Comment on above: Performed By: #### P TT, PT #### [facility] [address] [place], [place] [address] ABD/PELVIS WO CONon [...] RADHA RINALDI Date: 2021-10-11 09:36 Normal [facility] CT HEAD WO CONon 10-11-2021 CT HEAD [...] OSMIN MICHAEL Date: 2021-10-11 09:38 Normal [facility] LIPASEon 10-11-2021 Lipase [Catalytic activity/Vol] U/L Critically high 23.0-300.0 [facility] Comment on above: Result Comment: repe ated Performed By: #### D RUGRPD #### [facility] [address] [place] [address] Dr. Celi Guerin MAGNESIUMon 10-11-2021 Magnesium [Mass/Vol] 1.7 mg/dL Normal 1.6-2.3 [facility] Comment on above: Performed By: #### P TT, PT #### [facility] [address] [place] [address] Dr. Celi Guerin PHOSPHORUSon 10-11-2021 Phosphate [Mass/Vol] 1.5 mg/dL Critically low 2.5-4.5 [facility] Comment on above: Performed By: #### P TT, PT #### [facility] [address] [place] [address] Dr. Celi Guerin PROF 14(COMP METB)on 022 Albumin [Mass/Vol] 3.0 g/dL Critically low 3.4-5.0 [facility] Comment on above: Performed By: #### P TT, PT #### [facility] [address] [place] [address] Dr. Celi Guerin Albumin/Globulin [Mass ratio] 1.0 {ratio} Normal [facility] Comment on above: Performed By: #### P TT, PT #### [facility] [address] [place] [address] Dr. Celi Guerin ALP [Catalytic activity/Vol] 78 U/L Normal 46-116 [facility] Comment on above: Performed By: #### P TT, PT #### [facility] [address] [address] [address] Celi Guerin ALT [Catalytic activity/Vol] 31 U/L Normal 14-59 [facility] Comment on above: Performed By: #### P TT, PT #### [facility] [address] [address] [address] Celi Guerin Anion gap [Moles/Vol] 16.8 mmol/L Normal [facility] Comment on above: Performed By: #### P TT, PT #### [facility] [address] [address] [address] Celi Guerin AST [Catalytic activity/Vol] 48 U/L Critically high 15-37 [facility] Comment on above: Performed By: #### P TT, PT #### [facility] [address] [address] [address] Celi Guerin Bilirubin [Mass/Vol] 1.1 mg/dL Normal 0.2-1.3 [facility] Comment on above: Performed By: #### P TT, PT #### [facility] [facility] [address] [address] [address] Celi Guerin Calcium [Mass/Vol] 7.6 mg/dL Critically low 8.5-10.1 Th e [facility] Comment on above: Performed By: #### P TT, PT #### [facility] [address] [address] [address] Celi Guerin Chloride [Moles/Vol] 97 mmol/L Critically low 98-107 [facility] Comment on above: Performed By: #### P TT, PT #### [facility] [address] [address] [address] Celi Guerin CO2 [Moles/Vol] 22.3 mmol/L Normal 22.0-30.0 [facility] Comment on above: Performed By: #### P TT, PT #### [facility] [address] [address] [address] Celi Guerin Creatinine [Mass/Vol] 0.39 mg/dL Critically low 0.52-1.04 [facility] Comment on above: Performed By: #### P TT, PT #### [facility] [address] [address] [address] Celi Guerin EGFR-AF SOMALI >60 Normal >=60 [facility] Comment on above: Performed By: #### P TT, PT #### [facility] [address] [address] [address] Celi Guerin EGFR-NON AF SOMALI >60 Normal >=60 [facility] Comment on above: Performed By: #### P TT, PT #### [facility] [address] [address] [address] Celi Guerin Globulin (S) [Mass/Vol] 3.1 g/dL Normal [facility] Comment on above: Performed By: #### P TT, PT #### [facility] [address] [place] [address] Dr. Celi Guerin Glucose [Mass/Vol] 63 mg/dL Critically low 74-106 [facility] Comment on above: Performed By: #### P TT, PT #### [facility] [address] [address] [address] Celi Guerin Potassium [Moles/Vol] 3.1 mmol/L Critically low 3.4-5.0 [facility] Comment on above: Performed By: #### P TT, PT #### [facility] [address] [address] [address] Celi Guerin Protein [Mass/Vol] 6.1 g/dL Normal 6.1-8.2 [facility] Comment on above: Performed By: #### P TT, PT #### [facility] [address] [address] [address] Celi Guerin Sodium [Moles/Vol] 133 mmol/L Critically low 137-145 [facility] Comment on above: Performed By: #### P TT, PT #### [facility] [address] [address] [address] Celi Guerin Urea nitrogen [Mass/Vol] 3.0 mg/dL Critically low 7.0-18.0 [facility] Comment on above: Performed By: #### P TT, PT #### [facility] [address] [place] [address] Dr. Celi Guerin Urea nitrogen/Creatinine [Mass ratio] 7.7 mg/mg Normal [facility] Comment on above: Performed By: #### P TT, PT #### [facility] [address] [place] [address] Dr. Celi Guerin AMMONIAon 10-10-2021 Ammonia (P) [Moles/Vol] 39 umol/L Critically high 11-32 [facility] Comment on above: Performed By: #### E RUR, UMICRO #### [facility] [address] [place] [address] Dr. Celi Guerin AMYLASEon 10-10-2021 Amylase [Catalytic activity/Vol] 892 U/L Critically high 25-115 [facility] Comment on above: Result Comment: Test Repeated. Critical ValueVerified Performed By: #### D RUGRPD #### [facility] [address] [place] [address] Dr. Celi Guerin CBC AUTO DIFFon 10-10-2021 BASO # 0.0 103/ul Normal 0.0-0.1 [facility] Comment on above: Performed By: #### P TT, PT #### [facility] [address] [place] [address] Dr. Celi Guerin Basophils/100 WBC (Bld) 0.2 % Normal 0.2-2.0 [facility] Comment on above: Performed By: #### P TT, PT #### [facility] [address] [place] [address] Dr. Celi Guerin EO # 0.0 103/ul Normal 0.0-0.7 The [facility] Comment on above: Performed By: #### P TT, PT #### [facility] [address] [place] [address] Dr. Celi Guerin Eosinophils/100 WBC (Bld) 0.0 % Critically low 0.9-7.0 [facility] Comment on above: Performed By: #### P TT, PT #### [facility] [address] [place] [address] Dr. Ceil Guerin Erythrocyte distribution width (RBC) [Ratio] 18.2 % Critically high 11.0-15.0 [facility] Comment on above: Performed By: #### P TT, PT #### [facility] [address] [place] [address] Dr. Celi Guerin Hematocrit (Bld) [Volume fraction] 32.8 % Critically low 36.0-48.0 [facility] Comment on above: Performed By: #### P TT, PT #### [facility] [address] [place] [address] Dr. Celi Guerin Hemoglobin (Bld) [Mass/Vol] 10.2 g/dL Critically low 12.0-16.0 [facility] Comment on above: Performed By: #### P TT, PT #### [facility] [address] [place] [address] Dr. Celi Guerin IG # 0.04 10e3/ul Critically high 0.00-0.03 [facility] Comment on above: Performed By: #### P TT, PT #### [facility] [address] [place] [address] Dr. Celi Guerin IG % 0.7 % Critically high 0.0-0.5 [facility] Comment on above: Performed By: #### P TT, PT #### [facility] [address] [place] [address] Dr. Celi Guerin LYMPH # 0.9 103/ul Critically low 1.2-3.8 [facility] Comment on above: Performed By: #### P TT, PT #### [facility] [address] [place] [address] Dr. Celi Guerin Lymphocytes/100 WBC (Bld) 15.4 % Critically low 20.5-60.0 [facility] Comment on above: Performed By: #### P TT, PT #### [facility] [address] [place] [address] Dr. Celi Guerin MANUAL DIFF REQ NO Normal [facility] Comment on above: Performed By: #### P TT, PT #### [facility] [address] [place] [address] Dr. Celi Guerin MCH (RBC) [Entitic mass] 26.0 pg Critically low 26.7-34.0 [facility] Comment on above: Performed By: #### P TT, PT #### [facility] [address] [place] [address] Dr. Celi Guerin MCHC (RBC) [Mass/Vol] 31.1 g/dL Normal 29.9-35.2 [facility] Comment on above: Performed By: #### P TT, PT #### [facility] [address] [place] [address] Dr. Celi Guerin MCV (RBC) [Entitic vol] 83.5 fL Normal 81.0-99.0 [facility] Comment on above: Performed By: #### P TT, PT #### [facility] [address] [place] [address] Dr. Celi Guerin MONO # 0.4 103/ul Normal 0.3-0.8 [facility] Comment on above: Performed By: #### P TT, PT #### [facility] [address] [place] [address] Dr. Celi Guerin Monocytes/100 WBC (Bld) 7.5 % Normal 1.7-12.0 [facility] Comment on above: Performed By: #### P TT, PT #### [facility] [address] [place] [address] Dr. Celi Guerin NEUT # 4.5 103/ul Normal 1.4-6.5 [facility] Comment on above: Performed By: #### P TT, PT #### [facility] [address] [place] [address] Dr. Celi Guerin Neutrophils/100 WBC (Bld) 76.2 % Critically high 43.0-75.0 [facility] Comment on above: Performed By: #### P TT, PT #### [facility] [address] [place] [address] Dr. Celi Guerin Platelet mean volume (Bld) [Entitic vol] 10.6 fL Normal 9.5-13.5 [facility] Comment on above: Performed By: #### P TT, PT #### [facility] [address] [place] [address] Dr. Celi Guerin PLT 53 103/ul Critically low 150-450 [facility] Comment on above: Performed By: #### P TT, PT #### [facility] [address] [place] [address] Dr. Celi Guerin RBC 3.93 106/ul Critically low 4.20-5.40 [facility] Comment on above: Performed By: #### P TT, PT #### [facility] [address] [place] [address] Dr. Celi Guerin WBC 5.9 103/ul Normal 4.0-11.0 [facility] Comment on above: Performed By: #### P TT, PT #### [facility] [address] [place] [address] Dr. Celi Guerin DRUG SCREEN RAPID (URINE)on 10-10-2021 AMP Negative Normal NEGATIVE [facility] Comment on above: Performed By: #### D RUGRPD #### [facility] [address] [place] [address] Dr. Celi Guerin BAR Positive Abnormal NEGATIVE [facility] Comment on above: Performed By: #### D RUGRPD #### [facility] [address] [place] [address] Dr. Celi Guerin BUP Negative Normal NEGATIVE The [facility] Comment on above: Performed By: #### D RUGRPD #### [facility] [address] [place] [address] Dr. Celi Guerin BZO Positive Abnormal NEGATIVE [facility] Comment on above: Performed By: #### D RUGRPD #### [facility] [address] [place] [address] Dr. Celi Guerin REED Negative Normal NEGATIVE [facility] Comment on above: Performed By: #### D RUGRPD #### [facility] [address] [place] [address] Dr. Celi Guerin CUT-OFFS SEE BELOW Normal The [facility] Comment on above: Result Comment: AMP (Amphetamine): 500ng/mL, BAR (Barbituates): 200 ng/mL, BZO (Benzodiazepines): 150 ng/mL, BUP (Buprenorphine): 10 ng/mL, REED (Cocaine): 150 ng/mL, mAMP (Methamphetamine): 500 ng/mL, MTD (Methadone): 200 ng/mL, OPI (Opiates): 100 ng/mL, OXY (Oxycodone): 100 ng/mL, PCP (Phencyclidine): 25 ng/mL, PPX (Propoxyphene): 300 ng/mL, THC (Cannabinoids): 50 ng/mL, TCA (Trycyclic Antidepressants): 300 ng/mL Performed By: #### D RUGRPD #### [facility] [address] [place] [address] Dr. Celi Guerin DRUG CUT HEADER DRUG CLASS TEST SYSTEM CUT-OFF CONCENTRATIONS ARE FOLLOWS: Normal The [facility] Comment on above: Performed By: #### D RUGRPD #### [facility] [address] [place] [address] Dr. Celi Guerin mAMP Negative Normal NEGATIVE [facility] Comment on above: Performed By: #### D RUGRPD #### [facility] [address] [place] [address] Dr. Celi Guerin MTD Negative Normal NEGATIVE The [facility] Comment on above: Performed By: #### D RUGRPD #### [facility] [address] [place] [address] Dr. Celi Guerin OPI Positive Abnormal NEGATIVE The [facility] Comment on above: Performed By: #### D RUGRPD #### [facility] [address] [place] [address] Dr. Celi Guerin OXY Negative Normal NEGATIVE [facility] Comment on above: Performed By: #### D RUGRPD #### [facility] [address] [place] [address] Dr. Celi Guerin PCP Negative Normal NEGATIVE [facility] Comment on above: Performed By: #### D RUGRPD #### [facility] [address] [place] [address] Dr. Celi Guerin PPX Negative Normal NEGATIVE The [facility] Comment on above: Performed By: #### D RUGRPD #### [facility] [address] [place] [address] Dr. Celi Guerin TCA Negative Normal NEGATIVE [facility] Comment on above: Performed By: #### D RUGRPD #### [facility] [address] [place] [address] Dr. Celi Guerin THC Positive Abnormal NEGATIVE [facility] Comment on above: Performed By: #### D RUGRPD #### [facility] [address] [place] [address] Dr. Celi Guerin ER URINE PROFILEon 2 Bilirubin Ql (U) Negative Normal NEGATIVE [facility] Comment on above: Performed By: #### P TT, PT #### [facility] [address] [place] [address] Dr. Celi Guerin Clarity (U) CLEAR Normal CLEAR [facility] Comment on above: Performed By: #### P TT, PT #### [facility] [address] [place] [address] Dr. Celi Guerin Color (U) YELLOW Normal YELLOW [facility] Comment on above: Performed By: #### P TT, PT #### [facility] [address] [place] [address] Dr. Celi LUCAS A micrscopic examination will be performed if indicated. Normal The [facility] Comment on above: Performed By: #### P TT, PT #### [facility] [address] [place] [address] Dr. Celi Guerin Glucose Ql (U) Negative Normal NEGATIVE [facility] Comment on above: Performed By: #### P TT, PT #### [facility] [address] [place] [address] Dr. Celi Guerin Hemoglobin Ql (U) MODERATE Abnormal NEGATIVE [facility] Comment on above: Performed By: #### P TT, PT #### [facility] [address] [place] [address] Dr. Celi Guerin Ketones Ql (U) 15 mg/dl Abnormal NEGATIVE [facility] Comment on above: Performed By: #### P TT, PT #### [facility] [address] [place] [address] Dr. Celi Guerin LEUKOCYTES Negative Normal NEGATIVE [facility] Comment on above: Performed By: #### P TT, PT #### [facility] [address] [place] [address] Dr. Celi Guerin Nitrite Ql (U) Negative Normal NEGATIVE [facility] Comment on above: Performed By: #### P TT, PT #### [facility] [address] [place] [address] Dr. Celi Guerin pH (U) 6.0 [pH] Normal 5-9 [facility] Comment on above: Performed By: #### P TT, PT #### [facility] [address] [place] [address] Dr. Celi Guerin Protein (U) [Mass/Vol] 30 mg/dL Abnormal NEGATIVE/ TRACE The [facility] Comment on above: Performed By: #### P TT, PT #### [facility] [address] [place] [address] Dr. Celi Guerin SPEC GRAVITY 1.025 Normal 1.005-<=1.025 [facility] Comment on above: Performed By: #### P TT, PT #### [facility] [address] [place] [address] Dr. Celi Guerin UR MICRO IND INDICATED Normal [facility] Comment on above: Performed By: #### P TT, PT #### [facility] [address] [place] [address] Dr. Celi Guerin Urobilinogen Qn (U) 0.2 {Irlanda'U}/dL Normal 0.2 - 1. 0 [facility] Comment on above: Performed By: #### P TT, PT #### [facility] [address] [place] [address] Dr. Celi Guerin LIPASEon 10-10-2021 Lipase [Catalytic activity/Vol] U/L Critically high 23.0-300.0 [facility] Comment on above: Performed By: #### D RUGRPD #### [facility] [address] [address] [address] Celi Guerin PROF 14(COMP METB)on 022 Albumin [Mass/Vol] 3.4 g/dL Normal 3.4-5.0 [facility] Comment on above: Performed By: #### D RUGRPD #### [facility] [address] [address] [address] Celi Guerin Albumin/Globulin [Mass ratio] 1.1 {ratio} Normal [facility] Comment on above: Performed By: #### D RUGRPD #### [facility] [address] [address] [address] Celi Guerin ALP [Catalytic activity/Vol] 81 U/L Normal 46-116 [facility] Comment on above: Performed By: #### D RUGRPD #### [facility] [address] [place] [address] Dr. Celi Guerin ALT [Catalytic activity/Vol] 36 U/L Normal 14-59 [facility] Comment on above: Performed By: #### D RUGRPD #### [facility] [address] [address] [address] Celi Guerin Anion gap [Moles/Vol] 13.4 mmol/L Normal [facility] Comment on above: Performed By: #### D RUGRPD #### [facility] [address] [address] [address] Celi Guerin AST [Catalytic activity/Vol] 53 U/L Critically high 15-37 [facility] Comment on above: Performed By: #### D RUGRPD #### [facility] [address] [address] [address] Celi Guerin Bilirubin [Mass/Vol] 1.1 mg/dL Normal 0.2-1.3 [facility] Comment on above: Performed By: #### D RUGRPD #### [facility] [address] [address] [address] Celi Guerin Calcium [Mass/Vol] 7.7 mg/dL Critically low 8.5-10.1 [facility] Comment on above: Performed By: #### D RUGRPD #### [facility] [address] [address] [address] Celi Guerin Chloride [Moles/Vol] 98 mmol/L Normal 98-107 [facility] Comment on above: Performed By: #### D RUGRPD #### [facility] [address] [address] [address] Celi Guerin CO2 [Moles/Vol] 27.3 mmol/L Normal 22.0-30.0 [facility] Comment on above: Performed By: #### D RUGRPD #### [facility] [address] [address] [address] Celi Guerin Creatinine [Mass/Vol] 0.38 mg/dL Critically low 0.52-1.04 [facility] Comment on above: Performed By: #### D RUGRPD #### [facility] [address] [address] [address] Celi Guerin EGFR-AF SOMALI >60 Normal >=60 [facility] Comment on above: Performed By: #### D RUGRPD #### [facility] [address] [address] [address] Celi Guerin EGFR-NON AF SOMALI >60 Normal >=60 [facility] Comment on above: Performed By: #### D RUGRPD #### [facility] [address] [address] [address] Celi Guerin Globulin (S) [Mass/Vol] 3.1 g/dL Normal [facility] Comment on above: Performed By: #### D RUGRPD #### [facility] [address] [address] [address] Celi Guerin Glucose [Mass/Vol] 94 mg/dL Normal 74-106 [facility] Comment on above: Performed By: #### D RUGRPD #### [facility] [address] [address] [address] Celi Guerin Potassium [Moles/Vol] 3.7 mmol/L Normal 3.4-5.0 [facility] Comment on above: Performed By: #### D RUGRPD #### [facility] [address] [place] [address] Dr. Celi Guerin Protein [Mass/Vol] 6.5 g/dL Normal 6.1-8.2 [facility] Comment on above: Performed By: #### D RUGRPD #### [facility] [address] [place] [address] Dr. Celi Guerin Sodium [Moles/Vol] 135 mmol/L Critically low 137-145 [facility] Comment on above: Performed By: #### D RUGRPD #### [facility] [address] [place] [address] Dr. Celi Guerin Urea nitrogen [Mass/Vol] 6.0 mg/dL Critically low 7.0-18.0 [facility] Comment on above: Performed By: #### D RUGRPD #### [facility] [address] [place] [address] Dr. Celi Guerin Urea nitrogen/Creatinine [Mass ratio] 15.8 mg/mg Normal [facility] Comment on above: Performed By: #### D RUGRPD #### [facility] [address] [place] [address] Dr. Celi Guerin URINE MICROSCOPIC ONLYon BACTERIA TRACE Abnormal NONE SEEN [facility] Comment on above: Performed By: #### P TT, PT #### [facility] [address] [place] [address] Dr. Celi Guerin Bacteria identified Cx Nom (U) NOT INDICATED Normal [facility] Comment on above: Performed By: #### P TT, PT #### [facility] [address] [place] [address] Dr. Celi Guerin CAST NONE SEEN Normal NONE SEEN [facility] Comment on above: Performed By: #### P TT, PT #### [facility] [address] [place] [address] Dr. Celi Guerin Crystals LM Nom (Urine sed) NONE SEEN Normal NONE SEEN [facility] Comment on above: Performed By: #### P TT, PT #### [facility] [address] [place] [address] Dr. Celi Guerin Epithelial cells LM Ql (Urine sed) FEW Abnormal NONE SEEN /RARE [facility] Comment on above: Performed By: #### P TT, PT #### [facility] [address] [place] [address] Dr. Celi Guerin MUCOUS SMALL Abnormal NONE SEEN The [facility] Comment on above: Performed By: #### P TT, PT #### [facility] [address] [place] [address] Dr. Celi Guerin RBC 5-10 Abnormal 0-2 [facility] Comment on above: Performed By: #### P TT, PT #### [facility] [address] [place] [address] Dr. Celi Guerin WBC 0-2 Abnormal NONE SEEN The [facility] Comment on above: Performed By: #### P TT, PT #### [facility] [address] [place] [address] Dr. Celi Guerin CBC AUTO DIFFon 10-09-2021 BASO # 0.0 103/ul Normal 0.0-0.1 [facility] Comment on above: Performed By: #### E SAMEER ICRO #### [facility] [address] [place] [address] Dr. Celi Guerin Basophils/100 WBC (Bld) 0.1 % Critically low 0.2-2.0 [facility] Comment on above: Performed By: #### E RURuma UMICRO #### [facility] [address] [place] [address] Dr. Celi Guerin EO # 0.0 103/ul Normal 0.0-0.7 [facility] Comment on above: Performed By: #### E RURuma UMICRO #### [facility] [address] [place] [address] Dr. Celi Guerin Eosinophils/100 WBC (Bld) 0.1 % Critically low 0.9-7.0 [facility] Comment on above: Performed By: #### E RURuma UMICRO #### [facility] [address] [place] [address] Dr. Celi Guerin Erythrocyte distribution width (RBC) [Ratio] 18.5 % Critically high 11.0-15.0 The [facility] Comment on above: Performed By: #### ARTEMIO GOMEZ #### [facility] [address] [place] [address] Dr. Celi Guerin Hematocrit (Bld) [Volume fraction] 36.0 % Normal 36.0-48.0 [facility] Comment on above: Performed By: #### YURI GOMEZRO #### [facility] [address] [place] [address] Dr. Celi Guerin Hemoglobin (Bld) [Mass/Vol] 11.3 g/dL Critically low 12.0-16.0 [facility] Comment on above: Performed By: #### YURI GOMEZRO #### [facility] [address] [place] [address] Dr. Celi Guerin IG # 0.06 10e3/ul Critically high 0.00-0.03 [facility] Comment on above: Performed By: #### YURI GOMEZRO #### [facility] [address] [place] [address] Dr. Celi Guerin IG % 0.8 % Critically high 0.0-0.5 [facility] Comment on above: Performed By: #### YURI GOMEZRO #### [facility] [address] [place] [address] Dr. Celi Guerin LYMPH # 1.5 103/ul Normal 1.2-3.8 [facility] Comment on above: Performed By: #### YURI GOMEZRO #### [facility] [address] [place] [address] Dr. Celi Guerin Lymphocytes/100 WBC (Bld) 19.3 % Critically low 20.5-60.0 [facility] Comment on above: Performed By: #### YURI GOMEZRO #### [facility] [address] [place] [address] Dr. Celi Guerin MANUAL DIFF REQ NO Normal [facility] Comment on above: Performed By: #### YURI GOMEZRO #### [facility] [address] [place] [address] Dr. Celi Guerin MCH (RBC) [Entitic mass] 25.7 pg Critically low 26.7-34.0 [facility] Comment on above: Performed By: #### E SAMEER UMICRO #### [facility] [address] [place] [address] Dr. Celi Guerin MCHC (RBC) [Mass/Vol] 31.4 g/dL Normal 29.9-35.2 [facility] Comment on above: Performed By: #### Sergey ESTRELLA UMICRO #### [facility] [address] [place] [address] Dr. Celi Guerin MCV (RBC) [Entitic vol] 81.8 fL Normal 81.0-99.0 [facility] Comment on above: Performed By: #### Sergey ESTRELLA UMICRO #### [facility] [address] [place] [address] Dr. Celi Guerin MONO # 0.6 103/ul Normal 0.3-0.8 [facility] Comment on above: Performed By: #### Sergey ESTRELLA UMICRO #### [facility] [address] [place] [address] Dr. Celi Guerin Monocytes/100 WBC (Bld) 7.9 % Normal 1.7-12.0 [facility] Comment on above: Performed By: #### Sergey ESTRELLA UMICRO #### [facility] [address] [place] [address] Dr. Celi Guerin NEUT # 5.6 103/ul Normal 1.4-6.5 [facility] Comment on above: Performed By: #### Sergey ESTRELLA UMICRO #### [facility] [address] [place] [address] Dr. Celi Guerin Neutrophils/100 WBC (Bld) 71.8 % Normal 43.0-75.0 [facility] Comment on above: Performed By: #### Sergey ESTRELLA UMICRO #### [facility] [address] [place] [address] Dr. Celi Guerin Platelet mean volume (Bld) [Entitic vol] 10.3 fL Normal 9.5-13.5 [facility] Comment on above: Performed By: #### ARTEMIO GOMEZ #### [facility] [address] [address] [address] Celi Guerin PLT 78 103/ul Critically low 150-450 [facility] Comment on above: Performed By: #### YURI GOMEZRO #### [facility] [address] [address] [address] Celi Guerin RBC 4.40 106/ul Normal 4.20-5.40 [facility] Comment on above: Performed By: #### YURI GOMEZRO #### [facility] [address] [address] [address] Celi Guerin WBC 7.8 103/ul Normal 4.0-11.0 [facility] Comment on above: Performed By: #### YURI GOMEZRO #### [facility] [address] [place] [address] Dr. Celi Guerin [facility] SARS-CoV-2 (COVID-19) RNA LIBERTAD+probe Ql (Unsp spec) Not detected Normal NOT DETECTED [facility] Comment on above: Result Comment: When [...] for this test is supported by the [place] of Health and Human Service's declaration that [...] Performed By: #### P TT, PT #### [facility] [address] [place] [address] Dr. Celi Guerin ETHANOL (BLD ALC)on 10-10-19 22 ALC NOTE NOTE: 80 mg/dl is th e legal limit for a blood alcohol level Normal [facility] Comment on above: Performed By: #### P TT, PT #### [facility] [address] [place] [address] Dr. Celi Guerin Ethanol [Mass/Vol] 26 mg/dL Normal [facility] Comment on above: Performed By: #### P TT, PT #### [facility] [address] [place] [address] Dr. Celi Guerin LIPASEon 10-09-2021 Lipase [Catalytic activity/Vol] U/L Critically high 23.0-300.0 [facility] Comment on above: Performed By: #### P TT, PT #### [facility] [address] [place] [address] Dr. Celi Guerin PROF 14(COMP METB)on 022 Albumin [Mass/Vol] 4.1 g/dL Normal 3.4-5.0 [facility] Comment on above: Performed By: #### P TT, PT #### [facility] [address] [place] [address] Dr. Celi Guerin Albumin/Globulin [Mass ratio] 1.1 {ratio} Normal [facility] Comment on above: Performed By: #### P TT, PT #### [facility] [address] [place] [address] Dr. Celi Guerin ALP [Catalytic activity/Vol] 100 U/L Normal 46-116 [facility] Comment on above: Performed By: #### P TT, PT #### [facility] [address] [place] [address] Dr. Celi Guerin ALT [Catalytic activity/Vol] 44 U/L Normal 14-59 [facility] Comment on above: Performed By: #### P TT, PT #### [facility] [address] [place] [address] Dr. Celi Guerin Anion gap [Moles/Vol] 18.9 mmol/L Normal [facility] Comment on above: Performed By: #### P TT, PT #### [facility] [address] [place] [address] Dr. Celi Guerin AST [Catalytic activity/Vol] 84 U/L Critically high 15-37 [facility] Comment on above: Performed By: #### P TT, PT #### [facility] [address] [place] [address] Dr. Celi Guerin Bilirubin [Mass/Vol] 0.6 mg/dL Normal 0.2-1.3 [facility] Comment on above: Performed By: #### P TT, PT #### [facility] [address] [place] [address] Dr. Celi Guerin Calcium [Mass/Vol] 8.8 mg/dL Normal 8.5-10.1 [facility] Comment on above: Performed By: #### P TT, PT #### [facility] [address] [place] [address] Dr. Celi Guerin Chloride [Moles/Vol] 100 mmol/L Normal 98-107 [facility] Comment on above: Performed By: #### P TT, PT #### [facility] [address] [place] [address] Dr. Celi Guerin CO2 [Moles/Vol] 20.8 mmol/L Critically low 22.0-30.0 [facility] Comment on above: Performed By: #### P TT, PT #### [facility] [address] [place] [address] Dr. Celi Guerin Creatinine [Mass/Vol] 0.56 mg/dL Normal 0.52-1.04 [facility] Comment on above: Performed By: #### P TT, PT #### [facility] [address] [place] [address] Dr. Celi Guerin EGFR-AF SOMALI >60 Normal >=60 [facility] Comment on above: Performed By: #### P TT, PT #### [facility] [address] [place] [address] Dr. Celi Guerin EGFR-NON AF SOMALI >60 Normal >=60 [facility] Comment on above: Performed By: #### P TT, PT #### [facility] [address] [place] [address] Dr. Celi Guerin Globulin (S) [Mass/Vol] 3.8 g/dL Normal [facility] Comment on above: Performed By: #### P TT, PT #### [facility] [address] [place] [address] Dr. Celi Guerin Glucose [Mass/Vol] 130 mg/dL Critically high 74-106 T [facility] Comment on above: Performed By: #### P TT, PT #### [facility] [address] [place] [address] Dr. Celi Guerin Potassium [Moles/Vol] 3.7 mmol/L Normal 3.4-5.0 [facility] Comment on above: Performed By: #### P TT, PT #### [facility] [address] [place] [address] Dr. Celi Guerin Protein [Mass/Vol] 7.9 g/dL Normal 6.1-8.2 [facility] Comment on above: Performed By: #### P TT, PT #### [facility] [address] [place] [address] Dr. Celi Geurin Sodium [Moles/Vol] 136 mmol/L Critically low 137-145 [facility] Comment on above: Performed By: #### P TT, PT #### [facility] [address] [place] [address] Dr. Celi Guerin Urea nitrogen [Mass/Vol] 9.0 mg/dL Normal 7.0-18.0 [facility] Comment on above: Performed By: #### P TT, PT #### [facility] [address] [place] [address] Dr. Celi Guerin Urea nitrogen/Creatinine [Mass ratio] 16.1 mg/mg Normal [facility] Comment on above: Performed By: #### P TT, PT #### [facility] [address] [place] [address] Dr. Celi Guerin CULTURE URINEon 03-08-2022 CULTURE URINE Isolate 1 Escherichia coli >100,000 [...] F Trimethoprim/Sulfamet hoxazole <=20 S F Normal [facility] Comment on above: Performed By: #### P TT, PT #### [facility] [address] [place] [address] Dr. Celi Guerin AMYLASEon 08-30-2021 Amylase [Catalytic activity/Vol] 538 U/L Critically high 31-110 [facility] Comment on above: Result Comment: TEST REPEATED CRITICAL VALUE VERIFIED Performed By: #### P TT, PT #### [facility] [address] [place] [address] Dr. Celi Guerin CBC AUTO DIFFon 08-30-2021 BASO # 0.0 103/ul Normal 0.0-0.1 [facility] Comment on above: Performed By: #### YURI GOMEZRO #### [facility] [address] [place] [address] Dr. Celi Guerin Basophils/100 WBC (Bld) 0.2 % Normal 0.2-2.0 [facility] Comment on above: Performed By: #### YURI GOMEZRO #### [facility] [address] [place] [address] Dr. Celi Guerin EO # 0.0 103/ul Normal 0.0-0.7 [facility] Comment on above: Performed By: #### YURI GOMEZRO #### [facility] [address] [place] [address] Dr. Celi Guerin Eosinophils/100 WBC (Bld) 0.2 % Critically low 0.9-7.0 [facility] Comment on above: Performed By: #### YURI GOMEZRO #### [facility] [address] [place] [address] Dr. Celi Guerin Erythrocyte distribution width (RBC) [Ratio] 17.0 % Critically high 11.0-15.0 [facility] Comment on above: Performed By: #### YURI GOMEZRO #### [facility] [address] [place] [address] Dr. Celi Guerin Hematocrit (Bld) [Volume fraction] 34.2 % Critically low 36.0-48.0 [facility] Comment on above: Performed By: #### YURI GOMEZRO #### [facility] [address] [place] [address] Dr. Celi Guerin Hemoglobin (Bld) [Mass/Vol] 10.6 g/dL Critically low 12.0-16.0 [facility] Comment on above: Performed By: #### YURI GOMEZRO #### [facility] [address] [place] [address] Dr. Celi Guerin IG # 0.03 10e3/ul Normal 0.00-0.03 [facility] Comment on above: Performed By: #### YURI GOMEZRO #### [facility] [address] [place] [address] Dr. Celi Guerin IG % 0.5 % Normal 0.0-0.5 [facility] Comment on above: Performed By: #### YURI GOMEZRO #### [facility] [address] [place] [address] Dr. Celi Guerin LYMPH # 0.8 103/ul Critically low 1.2-3.8 [facility] Comment on above: Performed By: #### Sergey ESTRELLA UMICRO #### [facility] [address] [place] [address] Dr. Celi Guerin Lymphocytes/100 WBC (Bld) 14.4 % Critically low 20.5-60.0 [facility] Comment on above: Performed By: #### Sergey ESTRELLA UMICRO #### [facility] [address] [place] [address] Dr. Celi Guerin MANUAL DIFF REQ NO Normal [facility] Comment on above: Performed By: #### E SAMEER UMICRO #### [facility] [address] [place] [address] Dr. Celi Guerin MCH (RBC) [Entitic mass] 26.9 pg Normal 26.7-34.0 [facility] Comment on above: Performed By: #### Sergey ESTRELLA UMICRO #### [facility] [address] [place] [address] Dr. Celi Guerin MCHC (RBC) [Mass/Vol] 31.0 g/dL Normal 29.9-35.2 [facility] Comment on above: Performed By: #### Sergey ESTRELLA UMICRO #### [facility] [address] [place] [address] Dr. Celi Guerin MCV (RBC) [Entitic vol] 86.8 fL Normal 81.0-99.0 [facility] Comment on above: Performed By: #### Sergey ESTRELLA UMICRO #### [facility] [address] [place] [address] Dr. Celi Guerin MONO # 0.3 103/ul Normal 0.3-0.8 [facility] Comment on above: Performed By: #### Sergey ESTRELLA UMICRO #### [facility] [address] [place] [address] Dr. Celi Guerin Monocytes/100 WBC (Bld) 4.9 % Normal 1.7-12.0 [facility] Comment on above: Performed By: #### Sergey ESTRELLA UMICRO #### [facility] [address] [place] [address] Dr. Celi Guerin NEUT # 4.6 103/ul Normal 1.4-6.5 [facility] Comment on above: Performed By: #### Sergey ESTRELLA UMICRO #### [facility] [address] [place] [address] Dr. Celi Guerin Neutrophils/100 WBC (Bld) 79.8 % Critically high 43.0-75.0 [facility] Comment on above: Performed By: #### YURI GOMEZRO #### [facility] [address] [address] [address] Celi Guerin Platelet mean volume (Bld) [Entitic vol] 11.7 fL Normal 9.5-13.5 [facility] Comment on above: Performed By: #### YURI GOMEZRO #### [facility] [address] [address] [address] Celi Guerin PLT 68 103/ul Critically low 150-450 [facility] Comment on above: Performed By: #### YURI GOMEZRO #### [facility] [address] [address] [address] Celi Guerin RBC 3.94 106/ul Critically low 4.20-5.40 [facility] Comment on above: Performed By: #### YURI GOMEZRO #### [facility] [address] [address] [address] Celi Guerin WBC 5.8 103/ul Normal 4.0-11.0 [facility] Comment on above: Performed By: #### YURI GOMEZRO #### [facility] [address] [place] [address] ABD/PELVIS WO CONon [...] BOONE LEA Date: 2021-08-30 18:43 Normal [facility] ER URINE PROFILEon 2 Bilirubin Ql (U) SMALL Abnormal NEGATIVE [facility] Comment on above: Performed By: #### E ARTEMIO ESTRELLA #### [facility] [address] [place] [address] Dr. Celi Guerin Clarity (U) CLEAR Normal CLEAR [facility] Comment on above: Performed By: #### E ARTEMIO ESTRELLA #### [facility] [address] [place] [address] Dr. Celi Guerin Color (U) YELLOW Normal YELLOW [facility] Comment on above: Performed By: #### YURI GOMEZRO #### [facility] [address] [place] [address] Dr. Celi LUCAS A micrscopic examination will be performed if indicated. Normal [facility] Comment on above: Performed By: #### FLOR GOMEZICRO #### [facility] [address] [place] [address] Dr. Celi Guerin Glucose Ql (U) Negative Normal NEGATIVE [facility] Comment on above: Performed By: #### YURI GOMEZRO #### [facility] [address] [place] [address] Dr. Celi Guerin Hemoglobin Ql (U) Negative Normal NEGATIVE [facility] Comment on above: Performed By: #### YURI GOMEZRO #### [facility] [address] [place] [address] Dr. Celi Guerin Ketones Ql (U) >=80 Abnormal NEGATIVE [facility] Comment on above: Performed By: #### YURI GOMEZRO #### [facility] [address] [place] [address] Dr. Celi Guerin LEUKOCYTES MODERATE Abnormal NEGATIVE [facility] Comment on above: Performed By: #### YURI GOMEZRO #### [facility] [address] [place] [address] Dr. Celi Guerin Nitrite Ql (U) Positive Abnormal NEGATIVE [facility] Comment on above: Performed By: #### FLOR GOMEZICRO #### [facility] [address] [place] [address] Dr. Celi Guerin pH (U) 6.5 [pH] Normal 5-9 [facility] Comment on above: Performed By: #### FLOR GOMEZICRO #### [facility] [address] [place] [address] Dr. Celi Guerin Protein (U) [Mass/Vol] 100 mg/dL Abnormal NEGATIVE/ TRACE [facility] Comment on above: Performed By: #### E YURI ESTRELLARO #### [facility] [address] [place] [address] Dr. Celi Guerin SPEC GRAVITY 1.020 Normal 1.005-<=1.025 [facility] Comment on above: Performed By: #### E YURI ESTRELLARO #### [facility] [address] [place] [address] Dr. Celi Guerin UR MICRO IND INDICATED Normal [facility] Comment on above: Performed By: #### E LUCERORYURIRO #### [facility] [address] [place] [address] Dr. Celi Guerin Urobilinogen Qn (U) 2.0 {Irlanda'U}/dL Abnormal 0.2 - 1. 0 [facility] Comment on above: Performed By: #### YURI GOMEZRO #### [facility] [address] [place] [address] Dr. Celi Guerin ETHANOL (BLD ALC)on 08-31-19 22 ALC NOTE NOTE: 80 mg/dl is th e legal limit for a blood alcohol level Normal [facility] Comment on above: Performed By: #### E TH #### [facility] [address] [place] [address] Dr. Celi Guerin Ethanol [Mass/Vol] mg/dL Normal [facility] Comment on above: Performed By: #### E TH #### [facility] [address] [place] [address] Dr. Celi Guerin LIPASEon 08-30-2021 Lipase [Catalytic activity/Vol] U/L Critically high 23.0-300.0 [facility] Comment on above: Result Comment: TEST REPEATED CRITICAL VALUE VERIFIED Performed By: #### P TT, PT #### [facility] [address] [place] [address] Dr. Celi Guerin PROF 14(COMP METB)on 022 Albumin [Mass/Vol] 3.9 g/dL Normal 3.5-5.0 [facility] Comment on above: Performed By: #### P TT, PT #### [facility] [address] [address] [address] Celi Guerin Albumin/Globulin [Mass ratio] 1.1 {ratio} Normal [facility] Comment on above: Performed By: #### P TT, PT #### [facility] [address] [address] [address] Celi Guerin ALP [Catalytic activity/Vol] 91 U/L Normal 38-126 [facility] Comment on above: Performed By: #### P TT, PT #### [facility] [address] [address] [address] Celi Guerin ALT [Catalytic activity/Vol] 52 U/L Normal 9-52 [facility] Comment on above: Performed By: #### P TT, PT #### [facility] [address] [address] [address] Celi Guerin Anion gap [Moles/Vol] 16.7 mmol/L Normal [facility] Comment on above: Performed By: #### P TT, PT #### [facility] [address] [address] [address] Celi Guerin AST [Catalytic activity/Vol] 59 U/L Critically high 14-36 [facility] Comment on above: Performed By: #### P TT, PT #### [facility] [address] [address] [address] Celi Guerin Bilirubin [Mass/Vol] 1.0 mg/dL Normal 0.2-1.3 [facility] Comment on above: Performed By: #### P TT, PT #### [facility] [address] [address] [address] Celi Guerin Calcium [Mass/Vol] 9.0 mg/dL Normal 8.4-10.2 [facility] Comment on above: Performed By: #### P TT, PT #### [facility] [address] [address] [address] Celi Guerin Chloride [Moles/Vol] 95 mmol/L Critically low 98-107 [facility] Comment on above: Performed By: #### P TT, PT #### [facility] [address] [address] [address] Celi Guerin CO2 [Moles/Vol] 22.8 mmol/L Normal 22.0-30.0 [facility] Comment on above: Performed By: #### P TT, PT #### [facility] [address] [address] [address] Celi Guerin Creatinine [Mass/Vol] 0.57 mg/dL Normal 0.52-1.04 [facility] Comment on above: Performed By: #### P TT, PT #### [facility] [facility] [address] [address] [address] Celi Guerin EGFR-AF SOMALI >60 Normal >=60 [facility] Comment on above: Performed By: #### P TT, PT #### [facility] [address] [place] [address] Dr. Celi Guerin EGFR-NON AF SOMALI >60 Normal >=60 [facility] Comment on above: Performed By: #### P TT, PT #### [facility] [address] [place] [address] Dr. Celi Guerin Globulin (S) [Mass/Vol] 3.5 g/dL Normal [facility] Comment on above: Performed By: #### P TT, PT #### [facility] [address] [place] [address] Dr. Celi Guerin Glucose [Mass/Vol] 82 mg/dL Normal 74-106 [facility] Comment on above: Performed By: #### P TT, PT #### [facility] [address] [place] [address] Dr. Celi uGerin Potassium [Moles/Vol] 3.5 mmol/L Normal 3.4-5.0 [facility] Comment on above: Performed By: #### P TT, PT #### [facility] [address] [place] [address] Dr. Celi Guerin Protein [Mass/Vol] 7.4 g/dL Normal 6.1-8.2 [facility] Comment on above: Performed By: #### P TT, PT #### [facility] [address] [place] [address] Dr. Celi Guerin Sodium [Moles/Vol] 131 mmol/L Critically low 137-145 [facility] Comment on above: Performed By: #### P TT, PT #### [facility] [address] [place] [address] Dr. Celi Guerin Urea nitrogen [Mass/Vol] 8.0 mg/dL Normal 7.0-17.0 [facility] Comment on above: Performed By: #### P TT, PT #### [facility] [address] [place] [address] Dr. Celi Guerin Urea nitrogen/Creatinine [Mass ratio] 14.0 mg/mg Normal [facility] Comment on above: Performed By: #### P TT, PT #### [facility] [address] [place] [address] Dr. Celi Guerin URINE MICROSCOPIC ONLYon BACTERIA MODERATE Abnormal NONE SEEN The [facility] Comment on above: Performed By: #### Sergey ESTRELLA UMICRO #### [facility] [address] [place] [address] Dr. Celi Guerin Bacteria identified Cx Nom (U) INDICATED Normal [facility] Comment on above: Performed By: #### Sergey ESTRELLA UMICRO #### [facility] [address] [place] [address] Dr. Celi Guerin CAST SEEN Abnormal NONE SEEN [facility] Comment on above: Performed By: #### E SAMEER UMICRO #### [facility] [address] [place] [address] Dr. Celi Guerin Crystals LM Nom (Urine sed) NONE SEEN Normal NONE SEEN [facility] Comment on above: Performed By: #### E SAMEER UMICRO #### [facility] [address] [place] [address] Dr. Celi Guerin Epithelial cells LM Ql (Urine sed) FEW Abnormal NONE SEEN /RARE [facility] Comment on above: Performed By: #### Sergey ESTRELLA UMICRO #### [facility] [address] [place] [address] Dr. Celi Guerin HYALINE CAST RARE Normal [facility] Comment on above: Performed By: #### Sergey ESTRELLA, UMICRO #### [facility] [address] [place] [address] Dr. Celi Guerin MUCOUS NONE SEEN Normal NONE SEEN The [facility] Comment on above: Performed By: #### Sergey ESTRELLA, UMICRO #### [facility] [address] [place] [address] Dr. Celi Guerin RBC 0-2 Normal 0-2 [facility] Comment on above: Performed By: #### Sergey ESTRELLA, UMICRO #### [facility] [address] [place] [address] Dr. Celi Guerin WBC 10-20 Abnormal NONE SEEN [facility] Comment on above: Performed By: #### Sergey ESTRELLA, UMICRO #### [facility] [address] [place] [address] Dr. Celi Guerin AMYLASEon 07-04-2021 Amylase [Catalytic activity/Vol] 113 U/L Critically high 31-110 [facility] Comment on above: Performed By: #### Sergey ESTRELLA UMICRO #### [facility] [address] [place] [address] Dr. Celi Guerin CBC AUTO DIFFon 07-04-2021 BASO # 0.0 103/ul Normal 0.0-0.1 [facility] Comment on above: Performed By: #### C BC #### [facility] [address] [place] [address] Dr. Celi Guerin Basophils/100 WBC (Bld) 0.3 % Normal 0.2-2.0 [facility] Comment on above: Performed By: #### C BC #### [facility] [address] [place] [address] Dr. Celi Guerin EO # 0.0 103/ul Normal 0.0-0.7 [facility] Comment on above: Performed By: #### C BC #### [facility] [address] [place] [address] Dr. Celi Guerin Eosinophils/100 WBC (Bld) 0.0 % Critically low 0.9-7.0 [facility] Comment on above: Performed By: #### C BC #### [facility] [address] [address] [address] Celi Guerin Erythrocyte distribution width (RBC) [Ratio] 20.1 % Critically high 11.0-15.0 [facility] Comment on above: Performed By: #### C BC #### [facility] [address] [place] [address] Dr. Celi Guerin Hematocrit (Bld) [Volume fraction] 36.8 % Normal 36.0-48.0 [facility] Comment on above: Performed By: #### C BC #### [facility] [address] [place] [address] Dr. Celi Guerin Hemoglobin (Bld) [Mass/Vol] 12.3 g/dL Normal 12.0-16.0 [facility] Comment on above: Performed By: #### C BC #### [facility] [address] [place] [address] Dr. Celi Guerin IG # 0.04 10e3/ul Critically high 0.00-0.03 [facility] [place] Comment on above: Performed By: #### C BC #### [facility] [address] [place] [address] Dr. Celi Guerin IG % 0.6 % Critically high 0.0-0.5 [facility] Comment on above: Performed By: #### C BC #### [facility] [address] [place] [address] Dr. Celi Guerin LYMPH # 0.9 103/ul Critically low 1.2-3.8 [facility] Comment on above: Performed By: #### C BC #### [facility] [address] [place] [address] Dr. Celi Guerin Lymphocytes/100 WBC (Bld) 12.7 % Critically low 20.5-60.0 [facility] Comment on above: Performed By: #### C BC #### [facility] [address] [place] [address] Dr. Celi Guerin MANUAL DIFF REQ NO Normal [facility] Comment on above: Performed By: #### C BC #### [facility] [address] [address] [address] Celi Guerin MCH (RBC) [Entitic mass] 29.5 pg Normal 26.7-34.0 [facility] Comment on above: Performed By: #### C BC #### [facility] [address] [address] [address] Celi Guerin MCHC (RBC) [Mass/Vol] 33.4 g/dL Normal 29.9-35.2 [facility] Comment on above: Performed By: #### C BC #### [facility] [address] [address] [address] Celi Guerin MCV (RBC) [Entitic vol] 88.2 fL Normal 81.0-99.0 [facility] Comment on above: Performed By: #### C BC #### [facility] [address] [place] [address] Dr. Celi Guerin MONO # 0.5 103/ul Normal 0.3-0.8 [facility] Comment on above: Performed By: #### C BC #### [facility] [address] [place] [address] Dr. Celi Guerin Monocytes/100 WBC (Bld) 6.9 % Normal 1.7-12.0 [facility] Comment on above: Performed By: #### C BC #### [facility] [address] [address] [address] Celi Guerin NEUT # 5.5 103/ul Normal 1.4-6.5 [facility] Comment on above: Performed By: #### C BC #### [facility] [address] [place] [address] Dr. Celi Guerin Neutrophils/100 WBC (Bld) 79.5 % Critically high 43.0-75.0 [facility] Comment on above: Performed By: #### C BC #### [facility] [address] [place] [address] Dr. Celi Guerin Platelet mean volume (Bld) [Entitic vol] 10.0 fL Normal 9.5-13.5 [facility] Comment on above: Performed By: #### C BC #### [facility] [address] [place], [place] [address] Dr. Celi Guerin PLT 95 103/ul Critically low 150-450 [facility] Comment on above: Performed By: #### C BC #### [facility] [address] [place], [place] [address] Dr. Celi Guerin RBC 4.17 106/ul Critically low 4.20-5.40 [facility] Comment on above: Performed By: #### C BC #### [facility] [address] [place], [place] [address] Dr. Celi Guerin WBC 7.0 103/ul Normal 4.0-11.0 [facility] Comment on above: Performed By: #### C BC #### [facility] [address] [place], [place] [address] ABD/PELV W CONon [...] OSMIN MCGEE Date: 2021-07-04 16:56 Normal [facility] ETHANOL (BLD ALC)on 07-04-19 22 ALC NOTE NOTE: 80 mg/dl is th legal limit for a blood alcohol level Normal [facility] Comment on above: Performed By: #### E SAMEER UMICRO #### [facility] [address] [place] [address] Dr. Celi Guerin Ethanol [Mass/Vol] 35 mg/dL Normal [facility] Comment on above: Performed By: #### FLOR GOMEZICRO #### [facility] [address] [place] [address] Dr. Celi Guerin LIPASEon 07-04-2021 Lipase [Catalytic activity/Vol] 830.0 U/L Critically high 23.0-300.0 [facility] Comment on above: Performed By: #### Sergey ESTRELLA UMICRO #### [facility] [address] [place] [address] Dr. Celi Guerin PREG HCG QUALon 07-04-2021 , QUAL Negative Normal NEGATIVE [facility] Comment on above: Performed By: #### P REG #### [facility] [address] [place] [address] Dr. Celi Guerin PROF 14(COMP METB)on 022 Albumin [Mass/Vol] 3.2 g/dL Critically low 3.5-5.0 [facility] Comment on above: Performed By: #### YURI GOMEZRO #### [facility] [address] [place] [address] Dr. Celi Guerin Albumin/Globulin [Mass ratio] 0.7 {ratio} Normal [facility] Comment on above: Performed By: #### Sergey ESTRELLA UMICRO #### [facility] [address] [place] [address] Dr. Celi Guerin ALP [Catalytic activity/Vol] 126 U/L Normal 38-126 [facility] Comment on above: Performed By: #### ARTEMIO GOMEZ #### [facility] [address] [place] [address] Dr. Celi Guerin ALT [Catalytic activity/Vol] 60 U/L Critically high 9-52 [facility] Comment on above: Performed By: #### ARTEMIO GOMEZ #### [facility] [address] [place] [address] Dr. Celi Guerin Anion gap [Moles/Vol] 17.7 mmol/L Normal [facility] Comment on above: Performed By: #### ARTEMIO GOMEZ #### [facility] [address] [place] [address] Dr. Celi Guerin AST [Catalytic activity/Vol] 112 U/L Critically high 14-36 [facility] Comment on above: Performed By: #### ARTEMIO GOMEZ #### [facility] [address] [place] [address] Dr. Celi Guerin Bilirubin [Mass/Vol] 0.7 mg/dL Normal 0.2-1.3 [facility] Comment on above: Performed By: #### ARTEMIO GOMEZ #### [facility] [address] [place] [address] Dr. Celi Guerin Calcium [Mass/Vol] 8.5 mg/dL Normal 8.4-10.2 [facility] Comment on above: Performed By: #### ARTEMIO GOMEZ #### [facility] [address] [place] [address] Dr. Celi Guerin Chloride [Moles/Vol] 98 mmol/L Normal 98-107 [facility] Comment on above: Performed By: #### ARTEMIO GOMEZ #### [facility] [address] [place] [address] Dr. Celi Guerin CO2 [Moles/Vol] 23.5 mmol/L Normal 22.0-30.0 [facility] Comment on above: Performed By: #### ARTEMIO GOMEZ #### [facility] [address] [address] [address] Celi Guerin Creatinine [Mass/Vol] 0.57 mg/dL Normal 0.52-1.04 [facility] Comment on above: Performed By: #### E LUCEROR, UMICRO #### [facility] [address] [address] [address] Celi Guerin EGFR-AF SOMALI >60 Normal >=60 [facility] Comment on above: Performed By: #### E LUCEROR, UMICRO #### [facility] [address] [address] [address] Celi Guerin EGFR-NON AF SOMALI >60 Normal >=60 [facility] Comment on above: Performed By: #### E SAEMER, UMICRO #### [facility] [address] [place] [address] Dr. Celi Guerin Globulin (S) [Mass/Vol] 4.3 g/dL Normal [facility] Comment on above: Performed By: #### Sergey ESTRELLA, UMICRO #### [facility] [address] [place] [address] Dr. Celi Guerin Glucose [Mass/Vol] 104 mg/dL Normal 74-106 [facility] Comment on above: Performed By: #### Sergey ESTRELLA, UMICRO #### [facility] [address] [place] [address] Dr. Celi Guerin Potassium [Moles/Vol] 3.2 mmol/L Critically low 3.4-5.0 [facility] Comment on above: Performed By: #### Sergey BARKERR, UMICRO #### [facility] [address] [address] [address] Celi Guerin Protein [Mass/Vol] 7.5 g/dL Normal 6.1-8.2 [facility] Comment on above: Performed By: #### Sergey ESTRELLA, UMICRO #### [facility] [address] [place] [address] Dr. Celi Guerin Sodium [Moles/Vol] 136 mmol/L Critically low 137-145 [facility] Comment on above: Performed By: #### E YURI ESTRELLARO #### [facility] [address] [place] [address] Dr. Celi Guerin Urea nitrogen [Mass/Vol] 5.0 mg/dL Critically low 7.0-17.0 [facility] Comment on above: Performed By: #### E YURI ESTRELLARO #### [facility] [address] [place] [address] Dr. Celi Guerin Urea nitrogen/Creatinine [Mass ratio] 8.8 mg/mg Normal [facility] Comment on above: Performed By: #### E YURI ESTRELLARO #### [facility] [address] [place] [address] Dr. Celi Guerin PROTIMEon 07-04-2021 INR Coag (PPP) [Relative time] 1.03 {INR} Normal [facility] Comment on above: Performed By: #### P TT, PT #### [facility] [address] [place] [address] Dr. Celi Guerin INR GUIDELINES SEE BELOW Normal [facility] Comment on above: Result Comment: KIRILL RED INR: 2.0 - 3.0 CONDITIONS NOT LISTED BELOW 2.5 - 3.5 FOR PROSTHETIC HEART VALVE REPLACEMENT 2.5 - 3.5 RECURRENT THROMBOSIS Performed By: #### P TT, PT #### [facility] [address] [place] [address] Dr. Celi Guerin PT Coag (PPP) [Time] 11.1 s Normal 9.0-11.6 [facility] Comment on above: Performed By: #### P TT, PT #### [facility] [address] [place] [address] Dr. Celi Guerin PTTon 07-04-2021 aPTT Coag (Bld) [Time] 27.6 s Normal 22.3-36.2 [facility] Comment on above: Performed By: #### P TT, PT #### [facility] [address] [place] [address] Dr. Celi Guerin Covid-19 PCR (CVDTB)on 12-0 8-2021 SARS-CoV-2 (COVID-19) RNA LIBERTAD+probe Ql (Unsp spec) Not detected Normal NOT DETECTED [facility] Comment on above: Result Comment: When diagnostic [...] for this test is supported by the [place] of Health and Human Service's declaration that [...] used). Performed By: #### ARTEMIO GOMEZ #### [facility] [address] [place] [address] Dr. Celi Guerin COVID-[facility]-19/INFLUENZA A,B MOLECULAR SARS-COV-2 (YUNG): Detected INFLUENZA A (YUNG): Not Detected INFLUENZA B (YUNG): Not Detected Normal Not Detected [facility] Comment on above: Order Comment: This [...] at the following links: For Healthcare Providers: https://www.fda.gov/media/286113/download For Patients: https://www.fda.gov/media/822239/download Performed By: #### L [id number] #### [facility] [address] [address] Faye Enriquez M.D. [id number] COVID-19/Influenza A,B Taras charleyjunior 05-21-2020 Influenza A Not Detected Not [facility] B Not Detected Not Detected [facility] Interpretation and review of laboratory results Abnormal [facility] SARS-CoV-2 Detected Abnormal Not Detected [facility] This test was performed under the FDA's [...] at the following links: For Healthcare Providers: https://www.[facility].gov/m edia/017525/download For Patients: https://www.fda.gov/m edia/525487/download [facility] INCISION AND DRAINAGEon 09-26 [place] [...] Wound treatment: wound left open Packing material: / in iodoform gauze Patient tolerance: Patient tolerated the procedure well with no immediate complications [facility] Alcohol, Medicalon 0 Ethanol [Mass/Vol] 342.00 mg/dL High <10.00 [facility] Interpretation and review of laboratory results Abnormal [facility] BMPon 08-29-2019 Anion gap [Moles/Vol] 11 mmol/L 10 - 20 mmol/L [facility] Calcium [Mass/Vol] 9.0 mg/dL 8.4 - 10. 2 mg/dL [facility] Chloride [Moles/Vol] 111 mmol/L High 98 - 108 mmol/L [facility] Creatinine [Mass/Vol] 0.65 mg/dL 0.40 - 1.10 [facility] GFR/1.73 sq M predicted among non-blacks MDRD (S/P/Bld) [Vol rate/Area] The eGFR should be used for monitoring renal function only and not for medication dosing. [facility] GFR/1.73 sq M.predicted CKD-EPI (S/P/Bld) [Vol rate/Area] 118 >=60 mL/min/1.73 m2 [facility] Glucose [Mass/Vol] 86 mg/dL 65 - 99 mg/dL [facility] HCO3 [Moles/Vol] 24 mmol/L 21 - 32 mmol/L [facility] Interpretation and review of laboratory results Abnormal [facility] Potassium [Moles/Vol] 4.1 mmol/L 3.5 - 5.1 mmol/L [facility] Sodium [Moles/Vol] 142 mmol/L 135 - 145 mmol/L [facility] Urea nitrogen [Mass/Vol] 9 mg/dL 8 - 25 mg/dL [facility] Urea nitrogen/Creatinine [Mass ratio] 13.8 mg/mg [facility] CBC WITH AUTO DIFFERENTIALon 08-29-2019 Basophils (Bld) [#/Vol] 0.05 10*3/uL [facility] Basophils/100 WBC (Bld) 0.4 % [facility] Eosinophils (Bld) [#/Vol] 0.08 10*3/uL [facility] Eosinophils/100 WBC (Bld) 0.6 % [facility] Erythrocyte distribution width (RBC) [Entitic vol] 19.7 % High 11.6 - 14.8 % [facility] Hematocrit (Bld) [Volume fraction] 38.3 % 36 - 46 % [facility] Hemoglobin (Bld) [Mass/Vol] 12.8 g/dL 12 - 16 g/dL [facility] Immature granulocytes (Bld) [#/Vol] 0.05 10*3/uL [facility] Immature granulocytes/100 WBC (Bld) 0.40 % [facility] Comment on above: The IG parameter is the percentage of metamyelocytes, myelocytes, and promyelocytes. Interpretation and review of laboratory results Abnormal [facility] Lymphocytes (Bld) [#/Vol] 3.14 10*3/uL [facility] Lymphocytes/100 WBC (Bld) 23.9 % [facility] MCH (RBC) [Entitic mass] 29.1 pg 26 - 34 pg [facility] MCHC (RBC) [Mass/Vol] 33.4 g/dL 31 - 37 g/dL [facility] MCV (RBC) [Entitic vol] 87.0 fL 80 - 100 fL [facility] Monocytes (Bld) [#/Vol] 0.67 10*3/uL [facility] Monocytes/100 WBC (Bld) 5.1 % [facility] Neutrophils (Bld) [#/Vol] 9.16 10*3/uL [facility] Neutrophils/100 WBC (Bld) 69.6 % [facility] Nucleated RBC (Bld) [#/Vol] 0.01 10*3/uL [facility] Nucleated RBC/100 WBC (Bld) [Ratio] 0.1 % [facility] Platelet mean volume (Bld) [Entitic vol] 10.0 fL 9 - 15.5 fL [facility] Platelets (Bld) [#/Vol] 191 10*3/uL [facility] RBC (Bld) [#/Vol] 4.40 10*6/uL [facility] ealth WBC (Bld) [#/Vol] 13.15 10*3/uL [facility] CT ABDOMEN PELVIS WITH IV CO [...] is normal. 2. Hepatic steatosis. Workstation ID: [id number] Dictated by: MELINA BAILEY on WedAug 29, 2019 2:37:05 PM EST Transcribed by: MELINA BAILEY on WedAug 29, 2019 2:37:05 PM EST Finalized by: MELINA BAILEY on WedAug 29, 2019 2:37:05 PM EST [facility] Comment on above: Order Comment: Injur [...] nondilated. There is no acute osseous pathology. [facility] Interface, Rad In Sam Riderq - 08/29/2019 2:39 [...] is normal. 2. Hepatic steatosis. Workstation ID: [id number] [facility] 1. Fairly diffuse colonic wall thickening that may reflect incomplete bowel distention and spasm versus a mild colitis. There is no bowel obstruction. The appendix is normal. 2. Hepatic steatosis. Workstation ID: [id number] [facility] Hepatic Function Panel (LFT) on 08-29-2019 Albumin [Mass/Vol] 3.8 g/dL 3.2 - 5.2 g/dL [facility] ALP [Catalytic activity/Vol] 62 U/L 40 - 140 U/L [facility] ALT [Catalytic activity/Vol] 25 U/L 14 - 65 U/L [facility] AST [Catalytic activity/Vol] 21 U/L 0 - 45 U/L [facility] Bilirubin [Mass/Vol] 0.3 mg/dL 0 - 1.3 mg/dL [facility] Bilirubin.conjugate d [Mass/Vol] mg/dL 0 - 0.4 mg/dL [facility] Protein [Mass/Vol] 7.6 g/dL 6 - 8 g/dL [facility] alth Lipaseon 08-29-2019 Lipase [Catalytic activity/Vol] 102 U/L 73 - 393 U/L [facility] Otheron 08-29-2019 Extra Tube Hold for add-ons. [facility] Comment on above: Auto resulted. Interpretation and review of laboratory results Normal [facility] URINALYSISon 08-29-2019 Bacteria Auto Ql (U) None Seen None Seen /hpf [facility] Bilirubin Ql (U) Negative Negative [facility] Clarity Refractometry automated (U) Clear Clear [facility] Color (U) Colorless Colorless, Yellow [facility] Glucose Auto test strip (U) [Mass/Vol] Negative Negative mg/dL [facility] Hemoglobin Auto test strip Ql (U) Large Abnormal Negative [facility] Interpretation and review of laboratory results Abnormal [facility] Ketones (U) [Mass/Vol] Negative Negative mg/dL [facility] Leukocyte esterase Auto test strip Ql (U) Negative Negative [facility] Nitrite Auto test strip Ql (U) Negative Negative [facility] pH (U) 6.0 [pH] [facility] Protein (U) [Mass/Vol] Negative Negative mg/dL [facility] Specific gravity (U) [Rel density] 1.002 Low [facility] Urobilinogen (U) [Mass/Vol] <2.0 <2.0 mg/dL [facility] WBC Auto (Urine sed) [#/Area] <1 [facility] Microscopic examination is performed on all urinalysis samples and only positive findings are reported. The test for blood on the chemical analytic portion of urinalysis may also be positive due to hemoglobinuria and myoglobinuria and if red blood cells are present they are quantified by microscopic examination. [facility] Urine Pregnancyon 08-29-2019 Beta HCG ( test) Ql (U) Urine specific gravity less than 1.010 can give a false negative test result. Any specimen with a specific gravity less than 1.010 or collected before the first day of a missed menstrual period should be checked with a serum test. [facility] HCG ( test) Ql (U) Negative Negative [facility] Interpretation and review of laboratory results Normal [facility] Basic Metabolic Panelon 09-26 Calcium mass conc 9.6 mg/dL Normal 8.2-10.2 [facility] Comment on above: Performed By: #### C BC, ETOH, CMP #### [facility] [address] [place] [address] [place] Chloride molar conc 103 mmol/L Normal 95-114 [facility] Comment on above: Performed By: #### C BC, ETOH, CMP #### [facility] [address] [place] [address] [place] CO2 molar conc 24.1 mmol/L Normal 22.0-30.0 [facility] Comment on above: Performed By: #### C BC, ETOH, CMP #### [facility] [address] [place] [address] [place] Creatinine mass conc 127.3207765631 mg/dL Normal [facility] Comment on above: Result Comment: PERF ORMED BY: [place] [address] PATHOLOGIST TISSUE P[employer]ER CLAUDIA BAUER M.D. Performed By: #### C BC, ETOH, CMP #### [facility] [address] Creatinine mass conc 0.63 mg/dL Normal 0.44-1.03 [facility] Comment on above: Performed By: #### C BC, ETOH, CMP #### [facility] [address] Estimated GFR ( Khloe > 60 [facility] Comment on above: Result Comment: GFR estimated reference range: According to KDOQI guidelines, <60 ml/min/1.73m2 is sufficient to diagnose a patient with chronic kidney disease. Performed By: #### C BC, ETOH, CMP #### [facility] [address] [place] [address] [place] Estimated GFR (Non- Am > 60 Normal [facility] Comment on above: Performed By: #### C BC, ETOH, CMP #### [facility] [address] [place] [address] [place] Glucose mass conc 91 mg/dL Normal 70-100 [facility] Comment on above: Result Comment: [place] om Glucose Reference Range is dependent on time and content of last meal. Glucose of more than 200 mg/dL in a nonstressed, ambulatory subject supports the diagnosis of Diabetes Mellitus. ADA recommended reference range Performed By: #### C BC, ETOH, CMP #### [address] Potassium molar conc 3.9 mmol/L Normal 3.5-5.1 [facility] Comment on above: Performed By: #### C BC, ETOH, CMP #### [address] Sodium molar conc 135 mmol/L Low 136-146 [facility] Comment on above: Performed By: #### C BC, ETOH, CMP #### [address] Urea nitrogen mass conc 4 mg/dL Low 9-23 [facility] Comment on above: Performed By: #### C BC, ETOH, CMP #### [address] Hepatic Panelon 10-10-2018 Albumin mass conc 3.5 g/dL Normal 3.2-5.5 [facility] Comment on above: Performed By: #### H SETVE BMP #### [address] Albumin/Globulin mass ratio 1.3 {ratio} Normal [facility] Comment on above: Performed By: #### H STEVE BMP #### [address] ALP enzyme act/vol 72 U/L Normal 32-92 [facility] Comment on above: Performed By: #### H EPACLARI BMP #### [place] [address] [place] ALT enzyme act/vol 91 U/L High 10-60 [facility] Comment on above: Performed By: #### H EPACLARI, BMP #### [address] AST enzyme act/vol 112 U/L High 10-42 [facility] Comment on above: Performed By: #### H STEVE BMP #### [facility] [address] [place] [address] Bilirubin mass conc 0.5 mg/dL Normal 0.3-1.2 [facility] Comment on above: Performed By: #### H STEVE BMP #### [address] Bilirubin,Indirect 0.3 mg/dL Normal [facility] Comment on above: Performed By: #### H STEVE BMP #### [address] Bilirubin.direct mass conc 0.2 mg/dL Normal 0.0-0.4 [facility] Comment on above: Performed By: #### H STEVE BMP #### [address] Globulin mass conc (S) 2.6 g/dL Normal [facility] Comment on above: Performed By: #### H STEVE BMP #### [address] Protein mass conc 6.1 g/dL Normal 6.1-7.9 [facility] Comment on above: Performed By: #### H STEVE BMP #### [address] Basic Metabolic Panelon 09-26 Calcium mass conc 9.1 mg/dL Normal 8.2-10.2 [facility] Comment on above: Performed By: #### H STEVE BMP #### [address] Chloride molar conc 108 mmol/L Normal 95-114 [facility] Comment on above: Performed By: #### H STEVE BMP #### [address] CO2 molar conc 22.8 mmol/L Normal 22.0-30.0 [facility] Comment on above: Performed By: #### H STEVE BMP #### [address] Creatinine mass conc 0.53 mg/dL Normal 0.44-1.03 [facility] Comment on above: Performed By: #### H STEVE BMP #### [address] Creatinine mass conc 167.5834886119 mg/dL Normal [facility] Comment on above: Result Comment: PERF ORMED BY: [place] [address] PATHOLOGIST TISSUE P[employer]ER CLAUDIA BAUER M.D. Performed By: #### H STEVE BMP #### [address] Estimated GFR ( Khloe > 60 [facility] Comment on above: Result Comment: GFR estimated reference range: According to KDOQI guidelines, <60 ml/min/1.73m2 is sufficient to diagnose a patient with chronic kidney disease. Performed By: #### H STEVE BMP #### [address] Estimated GFR (Non- Am > 60 Normal [facility] Comment on above: Performed By: #### H STEVE BMP #### [address] Glucose mass conc 101 mg/dL High 70-100 [facility] Comment on above: Result Comment: [place] om Glucose Reference Range is dependent on time and content of last meal. Glucose of more than 200 mg/dL in a nonstressed, ambulatory subject supports the diagnosis of Diabetes Mellitus. ADA recommended reference range Performed By: #### H STEVE BMP #### [facility] [address] [place] [address] Potassium molar conc 3.2 mmol/L Low 3.5-5.1 [facility] Comment on above: Performed By: #### H STEVE BMP #### [address] Sodium molar conc 137 mmol/L Normal 136-146 [facility] Comment on above: Performed By: #### H STEVE BMP #### [facility] [address] [place] [address] Urea nitrogen mass conc 3 mg/dL Low 9-23 [facility] Comment on above: Performed By: #### H LORRAINE WILSON #### [address] Hepatic Panelon 10-09-2018 Albumin mass conc 3.2 g/dL Normal 3.2-5.5 [facility] Comment on above: Performed By: #### H STEVE BMP #### [address] Albumin/Globulin mass ratio 1.2 {ratio} Normal [facility] Comment on above: Performed By: #### H LORRAINE WILSON #### [address] ALP enzyme act/vol 66 U/L Normal 32-92 [facility] Comment on above: Performed By: #### H STEVE BMP #### [facility] [address] [place] [address] ALT enzyme act/vol 89 U/L High 10-60 [facility] Comment on above: Performed By: #### H LORRAINE WILSON #### [facility] [address] [place] [address] AST enzyme act/vol 156 U/L High 10-42 [facility] Comment on above: Performed By: #### H STEVE BMP #### [facility] [address] [place] [address] Bilirubin mass conc 0.5 mg/dL Normal 0.3-1.2 [facility] Comment on above: Performed By: #### H STEVE BMP #### [facility] [address] [place] [address] Bilirubin,Indirect 0.3 mg/dL Normal [facility] Comment on above: Performed By: #### H STEVE BMP #### [facility] [address] [place] [address] Bilirubin.direct mass conc 0.2 mg/dL Normal 0.0-0.4 [facility] Comment on above: Performed By: #### H EPATIC, BMP #### [facility] [address] [place] [address] Globulin mass conc (S) 2.6 g/dL Normal [facility] Comment on above: Performed By: #### H EPATIC, BMP #### [facility] [address] [place] [address] Protein mass conc 5.8 g/dL Low 6.1-7.9 [facility] Comment on above: Performed By: #### H EPATIC, BMP #### [facility] [address] [place] [address] Basic Metabolic Panelon 09-26 Calcium mass conc 9.2 mg/dL Normal 8.2-10.2 [facility] Comment on above: Performed By: #### H EPATIC, BMP, MG, [id number] #### [facility] [address] [place] [address] Chloride molar conc 105 mmol/L Normal 95-114 [facility] Comment on above: Performed By: #### H EPATIC, BMP, MG, [id number] #### [facility] [address] [place] [address] CO2 molar conc 24.1 mmol/L Normal 22.0-30.0 [facility] Comment on above: Performed By: #### H EPATIC, BMP, MG, [id number] #### [facility] [address] [place] [address] Creatinine mass conc 0.54 mg/dL Normal 0.44-1.03 [facility] Comment on above: Performed By: #### H EPATIC, BMP, MG, [id number] #### [facility] [address] [place] [address] Creatinine mass conc 163.6749960170 mg/dL Normal [facility] Comment on above: Performed By: #### H EPATIC, BMP, MG, [id number] #### [facility] [address] [place] [address] Estimated GFR ( Khloe > 60 Normal [facility] Comment on above: Result Comment: GFR estimated reference range: According to KDOQI guidelines, <60 ml/min/1.73m2 is sufficient to diagnose a patient with chronic kidney disease. Performed By: #### H EPATIC, BMP, MG, [id number] #### [address] Estimated GFR (Non- Am > 60 Normal [facility] Comment on above: Performed By: #### H EPATIC, BMP, MG, [id number] #### [address] Glucose mass conc 68 mg/dL Low 70-100 [facility] Comment on above: Result Comment: [place] om Glucose Reference Range is dependent on time and content of last meal. Glucose of more than 200 mg/dL in a nonstressed, ambulatory subject supports the diagnosis of Diabetes Mellitus. ADA recommended reference range Performed By: #### H EPATIC, BMP, MG, [id number] #### [address] Potassium molar conc 3.6 mmol/L Normal 3.5-5.1 [facility] Comment on above: Performed By: #### H EPATIC, BMP, MG, [id number] #### [address] Sodium molar conc 137 mmol/L Normal 136-146 [facility] Comment on above: Performed By: #### H EPATIC, BMP, MG, [id number] #### [address] Urea nitrogen mass conc 4 mg/dL Low 9-23 [facility] Comment on above: Performed By: #### H EPATIC, BMP, MG, [id number] #### [address] Complete Blood Count Auto Di ffon 10-08-2018 Basophils #/vol (Bld) 0.0 10*3/uL Normal 0.0-0.2 [facility] Comment on above: Result Comment: PERF ORMED BY: [place] [address] PATHOLOGIST TISSUE P[employer]ER CLAUDIA BAUER M.D. Performed By: #### C BC, ETOH, CMP #### [address] Basophils/100 WBC (Bld) 0.4 % Normal . [facility] Comment on above: Performed By: #### C BC, ETOH, CMP #### [address] Eosinophils #/vol (Bld) 0.0 10*3/uL Normal 0.0-0.45 [facility] Comment on above: Performed By: #### C BC, ETOH, CMP #### [address] Eosinophils/100 WBC (Bld) 0.4 % Normal . [facility] Comment on above: Performed By: #### C BC, ETOH, CMP #### [address] Erythrocyte distribution width Ratio (RBC) 17.0 % High 11.9-15.3 [facility] Comment on above: Performed By: #### C BC, ETOH, CMP #### [address] Hematocrit Volume Fraction (Bld) 40.2 % Normal 34.0-46.4 [facility] Comment on above: Performed By: #### C BC, ETOH, CMP #### [address] Hemoglobin mass conc (Bld) 13.6 g/dL Normal 11.8-15.4 [facility] Comment on above: Performed By: #### C BC, ETOH, CMP #### [address] Lymphocytes #/vol (Bld) 1.2 10*3/uL Normal 1.00-4.8 [facility] Comment on above: Performed By: #### C BC, ETOH, CMP #### [address] Lymphocytes/100 WBC (Bld) 33.3 % Normal . [facility] Comment on above: Performed By: #### C BC, ETOH, CMP #### [address] MCH Entitic mass (RBC) 33.8 g/dL Normal 32.0-35.0 [facility] Comment on above: Performed By: #### C BC, ETOH, CMP #### [address] MCH Entitic mass (RBC) 31.8 pg Normal 24.7-34.3 [facility] Comment on above: Performed By: #### C BC, ETOH, CMP #### [address] MCV Entitic volume (RBC) 94.1 fL Normal 80-100 [facility] Comment on above: Performed By: #### C BC, ETOH, CMP #### [address] Monocytes #/vol (Bld) 0.3 10*3/uL Normal 0.0-0.8 [facility] Comment on above: Performed By: #### C BC, ETOH, CMP #### [address] Monocytes/100 WBC (Bld) 6.8 % Normal . [facility] Comment on above: Performed By: #### C BC, ETOH, CMP #### [address] Neutrophils #/vol (Bld) 2.2 10*3/uL Normal 1.8-7.7 [facility] Comment on above: Performed By: #### C BC, ETOH, CMP #### [address] Neutrophils/100 WBC (Bld) 59.1 % Normal . [facility] Comment on above: Performed By: #### C BC, ETOH, CMP #### [address] Nucleated RBC/100 WBC Ratio (Bld) 0.1 % Normal 0-0.5 [facility] Comment on above: Performed By: #### C BC, ETOH, CMP #### [facility] [address] [place] [address] Platelet mean volume Entitic volume (Bld) 9.3 fL Normal 6.3-10.7 [facility] Comment on above: Performed By: #### C BC, ETOH, CMP #### [address] Platelets #/vol (Bld) 52 10*3/uL Low 150-450 [facility] Comment on above: Performed By: #### C BC, ETOH, CMP #### [address] RBC #/vol (Bld) 4.27 10*6/uL Normal 3.60-5.00 [facility] Comment on above: Performed By: #### C BC, ETOH, CMP #### [address] WBC #/vol (Bld) 3.7 10*3/uL Low 4.5-11.0 [facility] Comment on above: Performed By: #### C BC, ETOH, CMP #### [address] Comprehensive Metabolic Pane danitza 10-08-2018 Albumin mass conc 4.4 g/dL Normal 3.2-5.5 [facility] Comment on above: Performed By: #### C BC, ETOH, CMP #### [address] Albumin/Globulin mass ratio 1.6 {ratio} Normal [facility] Comment on above: Performed By: #### C BC, ETOH, CMP #### [address] ALP enzyme act/vol 81 U/L Normal 32-92 [facility] Comment on above: Performed By: #### C BC, ETOH, CMP #### [address] ALT enzyme act/vol 76 U/L High 10-60 [facility] Comment on above: Performed By: #### C BC, ETOH, CMP #### [facility] [address] [place] [id number] [place] AST enzyme act/vol 97 U/L High 10-42 [facility] Comment on above: Performed By: #### C BC, ETOH, CMP #### [facility] [address] [place] [address] [place] Bilirubin mass conc 0.7 mg/dL Normal 0.3-1.2 [facility] Comment on above: Performed By: #### C BC, ETOH, CMP #### [facility] [address] Calcium mass conc 10.3 mg/dL High 8.2-10.2 [facility] Comment on above: Performed By: #### C BC, ETOH, CMP #### [facility] [address] [place] [address] [place] Chloride molar conc 104 mmol/L Normal 95-114 [facility] Comment on above: Performed By: #### C BC, ETOH, CMP #### [facility] [address] [place] [address] [place] CO2 molar conc 25.6 mmol/L Normal 22.0-30.0 [facility] Comment on above: Performed By: #### C BC, ETOH, CMP #### [facility] [address] [place] [address] [place] Creatinine mass conc 0.62 mg/dL Normal 0.44-1.03 [facility] Comment on above: Performed By: #### C BC, ETOH, CMP #### [facility] [address] [place] [address] [place] Creatinine mass conc 128.7756459018 mg/dL Normal [facility] Comment on above: Result Comment: PERF ORMED BY: [place] [address] PATHOLOGIST TISSUE P[employer]ER CLAUDIA BAUER M.D. Performed By: #### C BC, ETOH, CMP #### [facility] [address] [place] [address] [place] Estimated GFR ( Khloe > 60 Normal [facility] Comment on above: Result Comment: GFR estimated reference range: According to KDOQI guidelines, <60 ml/min/1.73m2 is sufficient to diagnose a patient with chronic kidney disease. Performed By: #### C BC, ETOH, CMP #### [facility] [address] [place] [address] [place] Estimated GFR (Non- Am > 60 Normal [facility] Comment on above: Performed By: #### C BC, ETOH, CMP #### [facility] [address] Globulin mass conc (S) 2.8 g/dL Normal [facility] Comment on above: Performed By: #### C BC, ETOH, CMP #### [address] Glucose mass conc 95 mg/dL Normal 70-100 [facility] Comment on above: Result Comment: [place] Glucose Reference Range is dependent on time and content of last meal. Glucose of more than 200 mg/dL in a nonstressed, ambulatory subject supports the diagnosis of Diabetes Mellitus. ADA recommended reference range Performed By: #### C BC, ETOH, CMP #### [address] Potassium molar conc 4.1 mmol/L Normal 3.5-5.1 [facility] Comment on above: Performed By: #### C BC, ETOH, CMP #### [place] [address] [place] Protein mass conc 7.2 g/dL Normal 6.1-7.9 [facility] Comment on above: Performed By: #### C BC, ETOH, CMP #### [place] [address] [place] Sodium molar conc 140 mmol/L Normal 136-146 [facility] Comment on above: Performed By: #### C BC, ETOH, CMP #### [place] [address] [place] Urea nitrogen mass conc 4 mg/dL Low 9-23 [facility] Comment on above: Performed By: #### C BC, ETOH, CMP #### [facility] [address] Ethyl Alcohol Profileon 09-26 Ethanol mass conc mg/dL Normal [facility] Comment on above: Performed By: #### C BC, ETOH, CMP #### [facility] [address] [place] [address] Percent Ethanol Test not performed Normal [facility] Comment on above: Result Comment: PERF ORMED BY: [place] [address] PATHOLOGIST TISSUE P[employer]ER CLAUDIA BAUER M.D. Performed By: #### C BC, ETOH, CMP #### [address] Hepatic Panelon 10-08-2018 Albumin mass conc 3.7 g/dL Normal 3.2-5.5 [facility] Comment on above: Performed By: #### H EPATIC, BMP, MG, [id number] #### [facility] [address] [place] [address] Albumin/Globulin mass ratio 1.5 {ratio} Normal [facility] Comment on above: Performed By: #### H EPATIC, BMP, MG, [id number] #### [facility] [address] [place] [address] ALP enzyme act/vol 70 U/L Normal 32-92 [facility] Comment on above: Performed By: #### H EPATIC, BMP, MG, [id number] #### [facility] [address] [place] [address] ALT enzyme act/vol 77 U/L High 10-60 [facility] Comment on above: Performed By: #### H EPATIC, BMP, MG, [id number] #### [facility] [address] [place] [address] AST enzyme act/vol 142 U/L High 10-42 [facility] Comment on above: Performed By: #### H EPATIC, BMP, MG, [id number] #### [address] Bilirubin mass conc 0.9 mg/dL Normal 0.3-1.2 [facility] Comment on above: Performed By: #### H EPATIC, BMP, MG, [id number] #### [address] Bilirubin,Indirect 0.7 mg/dL Normal [facility] Comment on above: Performed By: #### H EPATIC, BMP, MG, [id number] #### [address] Bilirubin.direct mass conc 0.2 mg/dL Normal 0.0-0.4 [facility] Comment on above: Performed By: #### H EPATIC, BMP, MG, [id number] #### [address] Globulin mass conc (S) 2.5 g/dL Normal [facility] Comment on above: Performed By: #### H EPATIC, BMP, MG, [id number] #### [address] Protein mass conc 6.2 g/dL Normal 6.1-7.9 [facility] Comment on above: Performed By: #### H EPATIC, BMP, MG, [id number] #### [facility] [address] [place] [address] Magnesiumon 10-08-2018 Magnesium mass conc 1.7 mg/dL Normal 1.6-2.6 [facility] Comment on above: Performed By: #### H EPATIC, BMP, MG, [id number] #### [address] Vit. B12/Folate Profileon Cobalamin (Vitamin B12) mass conc 337 pg/mL Normal 180-914 [facility] Comment on above: Performed By: #### H EPATIC, BMP, MG, [id number] #### [facility] [address] [place] [id number] [facility] Folate 8.9 ng/mL Normal [facility] Comment on above: Result Comment: Shea te reference range: >5.9 ng/ml The WHO technical consultation on folate and vitamin b12 deficiencies has determined that folate concentrations less than 4 ng/ml are considered deficient. PERFORMED BY: [facility] [address] [place] [id number] PATHOLOGIST TISSUE P[employer]ER CLAUDIA BAUER M.D. Performed By: #### H EPATIC, BMP, MG, [id number] #### [facility] [address] [place] [id number] [facility] Vital Signs Date Time Vital Sign Value Performing Clinician Facility 05-12-2023 13:48-0500 Respiratory rate 16 /min [facility] 06-05-2020 12:47-0500 BMI (Body Mass Index) 30.04 kg/m2 [facility] 12:47-0500 Body Temperature 98.8 [degF] [facility] 06-05-2020 12:47-0500 Body weight 79.38 kg [facility] 06-05-2020 12:47-0500 BP Diastolic 79 mm[Hg] [facility] 06-05-2020 12:47-0500 BP Systolic 114 mm[Hg] [facility] 06-05-2020 12:47-0500 Height 162.6 cm [facility] 06-05-2020 12:47-0500 Pulse (Heart Rate) 118 /min [facility] 06-05-2020 12:47-0500 Pulse Oximetry 95 % [facility] 06-05-2020 12:47-0500 [facility] 14 /[facility] 18:13-0500 BMI (Body Mass Index) 30.04 kg/m2 [facility] 05-21-2020 18:13-0500 Body Temperature 97.9 [degF] [facility] 05-21-2020 18:13-0500 Body weight 79.38 kg [facility] 05-21-2020 18:13-0500 BP Diastolic 88 mm[Hg] [facility] 05-21-2020 18:13-0500 BP Systolic 122 mm[Hg] [facility] 05-21-2020 18:13-0500 Height 162.6 cm [facility] 05-21-2020 18:13-0500 Pulse (Heart Rate) 109 /min [facility] 05-21-2020 18:13-0500 Pulse Oximetry 97 % [facility] 05-21-2020 18:13-0500 Respiratory Rate 18 /min [facility] 10-11-2019 14:50-0400 BMI (Body Mass Index) 27.12 kg/m2 [facility] 10-11-2019 14:50-0400 Body Temperature 97.5 [degF] [facility] 10-11-2019 14:50-0400 Body weight 71.67 kg [facility] 10-11-2019 14:50-0400 BP Diastolic 70 mm[Hg] [facility] 10-11-2019 14:50-0400 BP Systolic 126 mm[Hg] [facility] 10-11-2019 14:50-0400 Height 162.6 cm [facility] 10-11-2019 14:50-0400 Pulse (Heart Rate) 91 /min [facility] 10-11-2019 14:50-0400 Pulse Oximetry 96 % [facility] 10-11-2019 14:50-0400 Respiratory Rate 16 /min [facility] 10-09-2019 08:38-0400 BMI (Body Mass Index) 27.12 kg/m2 Ollie Feng [facility] 10-09-2019 08:38-0400 Body Temperature 98.1 [degF] Ollie Feng [facility] 10-09-2019 08:38-0400 Body weight 71.67 kg Ollie Feng [facility] 10-09-2019 08:38-0400 BP Diastolic 75 mm[Hg] Ollie Feng [facility] 10-09-2019 08:38-0400 BP Systolic 112 mm[Hg] Ollie Feng [facility] 10-09-2019 08:38-0400 Height 162.6 cm Ollie Feng [facility] 10-09-2019 08:38-0400 Pulse (Heart Rate) 89 /min Ollie Feng [facility] 10-09-2019 08:38-0400 Pulse Oximetry 97 % Ollie Feng [facility] 10-09-2019 08:38-0400 Respiratory Rate 16 /min Ollie Feng [facility] 10-07-2019 13:51-0400 BP Diastolic 83 mm[Hg] Gwendolynjewel Tee [facility] 10-07-2019 13:51-0400 BP Systolic 110 mm[Hg] Gwendolynjewel Tee [facility] 10-07-2019 13:51-0400 Pulse (Heart Rate) 76 /min [facility] 13:51-0400 Pulse Oximetry 98 % Gwendolynjewel Tee [facility] 10-07-2019 13:51-0400 Respiratory Rate 16 /min [facility] 10-07-2019 12:02-0400 Body Temperature 97.5 [degF] [facility] 11:57-0400 BMI (Body Mass Index) 27.12 kg/m2 Gwendolynjewel Tee [facility] 10-07-2019 11:57-0400 Body weight 71.67 kg Gwendolynjewel Tee [facility] 10-07-2019 11:57-0400 Height 162.6 cm Gwendolynjewel Tee [facility] 08-29-2019 14:15-0500 BP Diastolic 81 mm[Hg] Boone Resendiz [facility] 08-29-2019 14:15-0500 BP Systolic 116 mm[Hg] Boone Resendiz [facility] 08-29-2019 14:15-0500 Pulse (Heart Rate) 84 /min Boone Resendiz [facility] 08-29-2019 14:15-0500 Pulse Oximetry 97 % Boone Resendiz [facility] 08-29-2019 13:01-0500 BMI (Body Mass Index) 23.69 kg/m2 Boone Resendiz [facility] 08-29-2019 13:01-0500 Body Temperature 98.1 [degF] Boone Resnediz [facility] 08-29-2019 13:01-0500 Body weight 62.6 kg Boone Resendiz [facility] 08-29-2019 13:050 Height 162.6 cm Boone Resendiz [facility] 08-29-2019 13:01050 Respiratory Rate 18 /min Boone Resendiz [facility] Encounters Encounter Date Encounter Type Care Provider Facility Start: 07-07-2023 End: 07-07-2023 ambulatory ASHLYN DON Not Available Start: 06-24-2023 End: 06-24-2023 ambulatory DARNELL L ZEN Not Available Start: 06-09-2023 End: 06-09-2023 ambulatory DARNELL Oliver CUTLER Not Available Start: 06-02-2023 End: 06-03-2023 ambulatory Neeraj R HEIDEL [facility] Start: 06-02-2023 End: 06-02-2023 Patient encounter procedure Neeraj R HEIDEL [facility] Start: 05-27-2023 End: 05-28-2023 ambulatory IMTIAZ METZ Not Available Start: 05-18-2023 End: 05-19-2023 ambulatory Neeraj R NILL Facility[facility] Start: 05-18-2023 End: 05-18-2023 Patient encounter procedure Neeraj R NILL [facility] Start: 05-12-2023 End: 05-13-2023 ambulatory Neeraj R NILL Facility:[facility] Start: 05-12-2023 End: 05-12-2023 Patient encounter procedure Neeraj R NILL [facility] [place] Start: 05-03-2023 ambulatory Neeraj MUNOZ Facility:[facility] Start: 10-09-2021 End: 10-12-2021 Evaluation and management of inpatient DR LARRY TORRES Facility:[facility] Start: 08-30-2021 End: 08-30-[address] GOLD LAY Facility:[facility] Start: 07-04-2021 End: 07-04-[address] OSMIN MCGEE Facility:[facility] Start: 06-04-2021 End: 06-04-2021 ambulatory SILVA SARMIENTO Facility:[facility] Start: 04-26-2021 End: 04-26-[address] BOONE HOLT Facility:[facility] Start: 10-09-2020 Patient encounter procedure PHYSICIAN SHAHNAZ [facility] Start: 06-12-2020 End: 06-12-2020 Patient encounter procedure HESHAM BARNES [facility] Start: 06-05-2020 End: 06-05-2020 Emergency department patient visit PHYSICIAN [facility] Start: 06-05-2020 End: 06-05-2020 Emergency department patient visit Radha Li [facility] Comment on above: COVID-19 virus infec tion (Primary Dx); Nonintractable headache, unspecified chronicity pattern, unspecified headache type; Myalgia; Fatigue, unspecified type Start: 05-21-2020 End: 05-21-2020 Emergency department patient visit PHYSICIAN [facility] Start: 05-21-2020 End: 05-21-2020 Emergency department patient visit Onofre Rowell Work Phone: [facility] Comment on above: COVID-19 virus infec tion (Primary Dx) Start: 2020 End: 2020 Documentation procedure Oh Wesley [facility] Comment on above: No show inital appoi ntment 01/29/2020 Start: 10-11-2019 End: 10-11-2019 Emergency department patient visit PHYSICIAN [facility] Start: 10-11-2019 End: 10-11-2019 Emergency department patient visit Radha Li Work Phone: [facility] Comment on above: Wound check, abscess (Primary Dx); Dressing change Start: 10-09-2019 End: 10-09-2019 Emergency department patient visit PHYSICIAN [facility] Start: 10-09-2019 End: 10-09-2019 Emergency department patient visit Ollie Feng Work Phone: [facility] Comment on above: Encounter for rechec k of abscess following incision and drainage (Primary Dx) Start: 10-07-2019 End: 10-07-2019 Emergency department patient visit PHYSICIAN [facility] Start: 10-07-2019 End: 10-07-2019 Emergency department patient visit Gwendolyn Tee Work Phone: [facility] Comment on above: Abscess of left [address] (Primary Dx) Start: 08-29-2019 End: 08-29-2019 Emergency department patient visit BOONE RESENDIZ [facility] Start: 08-29-2019 End: 08-29-2019 Emergency department patient visit Boone Resendiz Work Phone: [facility] Comment on above: Nausea and vomiting, intractability of vomiting not specified, unspecified vomiting type (Primary Dx); Epigastric pain; Alcohol abuse Start: 10-08-2018 End: 10-10-2018 Evaluation and management of inpatient Jericho Barreto Facility:[facility] Procedures Date Procedure Procedure Detail Performing Clinician Start: 05-21-2020 COVID-19/INFLUENZA A,B MOLECULAR Ajay Duran Work Phone: Start: 10-07-2019 Incision AND drainage Maria Elena Molina Jenna Work Phone: Start: 08-29-2019 Ct abdomen & [...] Phone: Start: 08-29-2019 LIGHT BLUE TOP Ajay Rosaomershawna Work Phone: Start: 08-29-2019 LIGHT GREEN TOP Ajay Rosaomershawna Work Phone: Start: 08-29-2019 Lipase [Enzymatic activity/volume] in Serum or Plasma Ajay RaiAndrew Duran Work Phone: Start: 08-29-2019 RAINBOW DRAW Ajay Rosaomershawna Work Phone: Start: 08-29-2019 Urinalysis Ajay Duran Work Phone: Start: 08-29-2019 URINE BERNARD CONTAINER Ajay Rosabriseida Work Phone: Start: 08-29-2019 URINE YELLOW CONTAINER Ajay Rosaomershawna Work Phone: section Neeraj JAEGER Melody Mastotomy with drain age of deep abscess Neeraj TAMMY Plan of Treatment Date Care Activity Detail Author Start: 06-12-2020 End: 06-12-2020 Telemedicine 06/12/2020 Telemedicine Primary Care Hesham Barnes, BRASS INSTRUMENT REPAIR TECHNICIAN [address] [place] [address] [phone] [facility] Start: 05-22-2020 End: 05-22-2020 Office Visit 05/22/2020 Office Visit Obstetrics and Gynecology Franklyn Gabriel MD [address] [place] [address] [phone] [facility] Ob[facility]ne[facility] Start: 02-27-2020 Influenza vaccinatio n given Sequential Influenza Vaccine (#1) [facility] Start: 02-26-2019 Influenza vaccinatio n given Sequential Influenza Vaccine (#1) [facility] Start: 2005 Hepatitis C antibody , confirmatory test Hepatitis C Screening [facility] Start: 2002 HIV screening HIV Screening [facility] Start: 1999 Adolescent depressio n screening assessment Depression Screening (PHQ9) [facility] Start: 1990 History and physical examination, annual for health maintenance Wellness Visit [facility] Start: 1987 Depression screening using PHQ-9 (Patient Health Questionnaire 9) score Depression Screening (PHQ9) [facility] Start: 1987 Screening for malign ant neoplasm of cervix Pap Smear [facility] Start: 1987 Tetanus vaccination Tetanus: Every 1 0yrs [facility] End: 10-07-2019 Aerobic microbial culture Wound Aerobic Culture Microbiology Routine Once for 1 Occurrences starting 10/07/2019 until 10/07/2019 [facility] Comment on above: Once for 1 Occurrenc es starting 10/07/2019 until 10/07/2019 Aerobic microbial culture Wound Aerobic Culture Microbiology Routine 10/07/2019 1:30 PM EDT [facility] End: 10-07-2019 Wound Anaerobic Culture Wound Anaerobic Culture Microbiology Routine Once for 1 Occurrences starting 10/07/2019 until 10/07/2019 [facility] Comment on above: Once for 1 Occurrenc es starting 10/07/2019 until 10/07/2019 Wound Anaerobic Culture Wound An aerobic Culture Microbiology Routine 10/07/2019 1:30 PM EDT [facility] Immunizations Immunization Date Immunization Notes Care Provider Ceasar cotto NEGATED: Highlighted row has not occurred!05-12-2023 influenza virus vaccine, unspecified formulation Neeraj MUNOZ [facility] Payers Date Payer Category Payer Unknown [id number] 2019 Private Health Insurance MIAN Mark [employer] CHOICE FUND-ANY CHOICE FUND [id number] 2019-Present [id number] 2019 Private Health Insurance [id number] 2018 Medicaid [employer]ICA[employer] [place] [employer] [id number] 2018-Present [id number] 2018 Private Health Insurance xxx [id number] 2018 Self-pay 2018 Unknown [id number] 2015 Unknown [id number] 1987 Unknown [id number] 2.16.840.1.560470.3.579.2. 903 1987 Unknown [id number] 2.16.840.1.997833.3.579.2. 903 1987 Unknown [id number] 2.16.840.1.245749.3.579.2. 903 1987 Unknown [id number] 2.16.840.1.984110.3.579.2. 903 1987 Unknown [id number] 2.16.840.1.920935.3.579.2. 903 1987 Unknown [id number] 2.16.840.1.025537.3.579.2. 903 1987 Unknown [id number] 2.16.840.1.192841.3.579.2. 903 1987 Unknown [id number] 2.16.840.1.571021.3.579.2. 903 1987 Unknown [id number] 2.16.840.1.458118.3.579.2. 593 1987 Unknown [id number] 2.16.840.1.862346.3.579.2. 593 1987 Unknown [id number] 2.16.840.1.255275.3.579.2. 593 1987 Unknown [id number] 2.16.840.1.977618.3.579.2. 593 1987 Unknown [id number] 2.16.840.1.485129.3.579.2. 593 1987 Unknown [id number] 2.16.840.1.255962.3.579.2. 727 1987 Unknown [id number] 2.16.840.1.656566.3.579.2. 727 1987 Unknown [id number] 2.16.840.1.118750.3.579.2. 727 1987 Unknown [id number] 2.16.840.1.292715.3.579.2. 727 1987 Unknown [id number] 2.16.840.1.017507.3.579.2. 727 1987 Unknown [id number] 2.16.840.1.656439.3.579.2. 9 1987 Unknown [id number] 2.16.840.1.827757.3.579.2. 9 1987 Unknown [id number] 2.16.840.1.738182.3.579.2. 9 1987 Unknown [id number] 2.16.840.1.261261.3.579.2. 1259 1959 Private Health Insurance [id number] 1959 Unknown [id number] Unknown [id number] 2.16.840.1.905129.3.579.2. 531 Social History Date Type Detail Facility Start: 08-29-2019 End: 06-05-2020 Tobacco smoking status NHIS Current every day smoker [facility] History of tobacco use Cigarette Smoker [facility] Start: 08-29-2019 End: 06-05-2020 Cigarettes smoked current (pack per day) - Reported [facility] Start: 08-29-2019 End: 06-05-2020 Alcohol intake [facility] ([facility] Start: 08-29-2019 Alcohol Comment daily [facility] Sex Assigned At Not on file [facility] Start: 10-07-2019 Alcohol Comment socially [facility] Exposure to SARS-CoV -2 (event) Unable to assess [facility] Start: 05-21-2020 End: 06-05-2020 Tobacco use and exposure [facility] Exposure to SARS-CoV -2 (event) Yes [facility] Start: 05-12-2023 Tobacco smoking status Heavy t obacco smoker (finding) [facility] Tobacco smoking status Never [facility] Sex Assigned At Female [facility] Functional Status Date Assessment Result Facility 05-12-2023 Functional Status N/A [facility] Evaluation + Plan note Note Date & Type Note Facility Evaluation + Plan note Future Appointments Appointment Date:05/18/2023 01:00:00 PM Scheduled Provider:Neeraj MUNOZ MD Location:[facility] Appointment Type: Post Op 15 [facility] Hospital course Narrative Note Date & Type Note Facility Hospital course Narrative No data available for this section [facility] Discharge instructions Note Date & Type Note Facility Hospital Discharge instructions No data available for this section [facility] Progress note Note Date & Type Note Facility Progress note No data available for this section [facility] Summary Purpose Family History No Family History Records FoundNo Family History Records FoundNo Family History Records FoundNo Family History Records Found No data available for this section No data available for this section No data available for this section No Family History Records FoundNo Family History Records Found Advance Directives No Advanced Directives Records FoundDocuments on File Type Date Recorded 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 Advance Directives and Livin g Will 08/29/2019 1:59 PM Documents on File Type Date Recorded 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 anation Advance Directives and Livin g Will 10/07/2019 12:14 PM Documents on File Type Date Recorded 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 * Abdominal Pain (Zimbabwean) * Nausea and Vomiting (Zimbabwean) documented in this encounter* Attachments The following attachments cannot be sent through Care Everywhere. * Abscess: Skin (Zimbabwean) documented in this encounter* Attachments The following attachments cannot be sent through Care Everywhere. * Abscess: Skin (Zimbabwean) documented in this encounter* Attachments The following attachments cannot be sent through Care Everywhere. * Abscess: Skin (Zimbabwean) documented in this encounter* Instructions* Ajay Duran PA-C - 05/21/2020 Stay home and away from other people. Rest, fluids, Tylenol. Return for difficulty breathing, uncontrolled fevers, or any other problems or concerns. You did test positive for COVID-19 today. * Attachments The following attachments cannot be sent through Care Everywhere. * COVID-19 SELF ISOLATION DISCHARGE INSTRUCTIONS * Coronavirus Disease (COVID-19): General Info (Zimbabwean) documented in this encounter* Attachments The following attachments cannot be sent through Care Everywhere. * Fatigue (Zimbabwean) * Coronavirus Disease (COVID-19): General Info (Zimbabwean) * COVID-19: Taking Care of Yourself If You Have It: Video (Zimbabwean) * Myalgia (Zimbabwean) documented in this encounter Assessments Diagnosis Nausea [...] section and content) DATE CREATED AUTHOR 10/10/2018 [facility] DATE CREATED AUTHOR AUTHOR'S ORGANIZ ATION 06/13/2020 [facility] DATE CREATED AUTHOR AUTHOR'S ORGANIZ ATION 10/09/2020 [facility] DATE CREATED AUTHOR AUTHOR'S ORGANIZ ATION 12/17/2021 [facility] DATE CREATED AUTHOR AUTHOR'S ORGANIZ ATION 06/07/2023 Rajendra Clark [facility] DATE CREATED AUTHOR AUTHOR'S ORGANIZ ATION 07/09/2023 [facility] EPIC Reason for Visit (unrecogniz ed section and content) Reason Comments Abdominal Pain Reason Comments Abscess Reason Comments Wound Check Reason Comments No show inital appointment 01/29/2020 Reason Comments Cough Fatigue Reason Comments covid+ Headache Generalized Body Aches Ajay Duran PA-Jas - 08/29/2019 1:35 PM Shannan Olsen RN - 08/29/2019 1:02 PM Shannan Olsen RN - 08/29/2019 12:59 PM Maria Elena Francis CNP - 10/07/2019 12:33 PM EDT ED Notes (unrecognized secti on and content) [facility] ED Physician Note: NAME: Shannan Carter 34 y.o. CSN: [id number] PCP: Physician No Clinical Impression: 1. Nausea [...] for 10 days . Follow-up Information 1. [facility] - Primary Care Services. Why: Recheck of todays complaint [address] [facility] [address] 2. Miguel Sarkar III, MD. Specialties: General Surgery, Interventional Radiology, Breast Surgery Why: Recheck of todays complaint [address] [place] [address] 3. [facility]. Specialty: Emergency Medicine Why: If symptoms worsen [address] [place] [address] Contact information for after-discharge care Follow-up information [...] file Gets together: Not on file Attends christian service: Not on file Active member of [...] Abnormal; Notable for the following components: Specific Bunch 1.002 (*) Blood, Urine Large (*) All [...] Procedure Abnormality Status --------- ------ CBC Auto Differential[[id number]] Abnormal Final result Please view results for these tests on the individual orders. CT Abdomen Pelvis With IV Contrast Only Final Result 1. Fairly diffuse colonic wall thickening that may reflect incomplete bowel distention and spasm versus a mild colitis. There is no bowel obstruction. The appendix is normal. 2. Hepatic steatosis. Workstation ID: [id number] Procedures: Procedures ED Course/ Medical Decision Making: [...] hypertension. . Ajay Duran PA-C ED Physician Assistant Case Manager [facility] Emergency Department (Please note that portions of this note have been completed with a voice recognition software. Efforts were made to correct any errors, but occasionally words are mis-transcribed.) Ajay Duran PA-C 08/29/19 1511 Also reports that she went on an alcohol binge last weekend which flared it up. Pt reports Its my pancreas. States she is usually seen at [facility] and recently moved here, has a history of pancreatitis. documented in this encounter Associated Order(s): Incision/Drainage [facility] ED Physician Note: NAME: Shannan Carter 34 y.o. CSN: [id number] PCP: Physician No Chief Complaint: Abscess Clinical [...] or uses a tobacco product, I did financial services counselor them on benefits and resources of [...] Take with food . Follow-up Information 1. [facility] - Primary Care Services. Why: for symptom reheck [address] [place] [address] 2. [facility]. Specialty: Emergency Medicine Why: If symptoms worsen [address] [place] [address] Contact information for after-discharge care Follow-up information [...] of the left breast surrounding her area [place]. Patient reports associated drainage. Denies any fever, [...] immunocompromised or diabetic. History provided by: Patient commercial reporter used: No Abscess Associated symptoms: no fever, [...] file Gets together: Not on file Attends christian service: Not on file Active member of [...] expedite correspondence this note was generated by N[employer]ice voice recognition software. Some grammatical or spelling errors may occur using the system. ARI López, ENP-C ED Nurse Practitioner [facility] Emergency Department (Please note that portions of this note have been completed with a voice recognition software. Efforts were made to correct any errors, but occasionally words are mis-transcribed.) Maria Elena West CNP 10/07/19 1439 Patient states, I had one here before 2 or 3 years ago. Patient states, I have an abscess on my boob. documented in this encounter [facility] ED Physician Note: NAME: Shannan Carter 34 y.o. CSN: [id number] PCP: Physician No ED Course / Medical [...] file Gets together: Not on file Attends christian service: Not on file Active member of [...] Drainage from breat noted think and pus-like [facility] ED Physician Note: NAME: Shannan Carter 34 y.o. CSN: [id number] PCP: Physician No ED Course / Medical [...] does lift heavy boxes. Recommend follow-up with [facility] in a week for recheck. [...] file Gets together: Not on file Attends christian service: Not on file Active member of [...] hypertension. . This chart was documented with Flypaperation system. There may be spelling errors as a result. Colin Loaiza PA-C [facility] Emergency Department (Please note that portions of this note have been completed with a voice recognition software. Efforts were made to correct any errors, but occasionally words are mis-transcribed.) Colin Loaiza PA-C 10/11/19 1510 Pt into ER states I need to get the packing taken out of my boob. I don't have a family doctor so I came here. documented in this encounter [facility] ED Physician Note: NAME: Shannan Carter 35 y.o. CSN: [id number] PCP: Physician No Clinical Impression: 1. COVID-19 virus infection Disposition: Patient is being discharged to home Follow-up Information 1. [facility]. Why: Recheck of todays complaint [address] [facility] [phone] 2. [facility]. Specialty: Emergency Medicine Why: If symptoms worsen [address] [place] [id number] Contact information for after-discharge care Follow-up information [...] file Gets together: Not on file Attends christian service: Not on file Active member of [...] at the following links: For Healthcare Providers: https://www.[employer]gov/media/620428/download For Patients: https://www.[employer]gov/media/378818/download No orders to display Procedures: Procedures ED [...] hypertension. . Ajay Duran PA-C ED Physician Assistant Case Manager [facility] Emergency Department (Please note that portions of this note have been completed with a voice recognition software. Efforts were made to correct any errors, but occasionally words are mis-transcribed.) Ajay Duran PA-C 05/21/201903 Pt presents to ED with c/o cough and fatigue that started Wednesday. Pt states that she lives with someone who is positive for covid documented in this encounter [facility] Physician Note: NAME: Shannan Carter 35 y.o. CSN: [id number] PCP: Physician No Clinical Impression: 1. COVID-19 [...] 12 at 2 pm) [address] [facility] [address] Contact information for after-discharge care Follow-up information [...] to Toradol IM, I spoke with social director who arranged for an outpatient appointment with her urgently, neuro exam is nonfocal, she is making informed decision. I discussed with the patient supportive care, signs to return to ED, infectious/neuro warning signs, follow up with pcp; questions answered; patient understands and agrees with plan; . . If patient is currently a smoker or uses a tobacco product, I did financial services counselor them on benefits and resources of [...] file Gets together: Not on file Attends christian service: Not on file Active member of [...] Procedures: Procedures Radha Li DO ED Physician [facility] Emergency Department Radha Li DO 06/05/20 1611 [...] 08/29/2019 3:44 PM ESTED Attestation Note - wGendolyn Tee MD - 10/07/2019 2:20 PM EDT [...] vomiting [place] Resendiz MD ED Attending Physician [facility] Emergency Department documented in this encounter [...] n (unrecognized section and content) Personnel Name: Abbey DEL REAL Ashlyn Amalia Address: Address: [facility] Melchor Pandya, [facility] C, [address] Personnel Name: Abbey DEL REALAshlyn Address: Address: [facility] Melchor Pandya, [facility] C, [address] Personnel Name: Abbey DEL REALAshlyn Address: Address: [address] [place] [address] FOR RECORDS PERTAINING TO PATIENTS WHO [...] BE BASED ON THE PRIMARY CLINICAL RECORDS. [email or web address] [facility]. provides no warranty or guarantee of the accuracy or completeness of information in this document.
--- NOTE | 2023-07-16 12:51 | US_ITS ---
Patient Name: WADE LOPEZ MR#: [id number] : 1985 Exam Date: 07/16/2023 Ordering Doctor: XOCHILT DON . RADIOLOGY REPORT PROCEDURE: MM TOMOSYNTHESIS DIAGNOSTIC BI, 07/16/2023, 12:50 US BREAST BI LIMITED, 07/16/2023, 13:29 COMPARISON: US BREAST LT LIMITED, 04/29/2023. US BREAST RT LIMITED, 06/02/2023. INDICATIONS: History Bilateral Breast Abscess Z87.2 Calculator Name NCI Breast Cancer Risk Assessment Tool 5 Year Breast Cancer Risk 0.30% Lifetime Breast Cancer Risk 9.20% Personal Breast Cancer No Personal Ovarian Cancer No Treatments None Family Cancers Mother with thyroid cancer at age 31. LOCATION: [facility] BREAST COMPOSITION: Heterogeneously dense,which may obscure small masses. FINDINGS: DIAGNOSTIC CATEGORY 2--BENIGN FINDING: The breasts are medium in size with scattered fibroglandular tissue.Scattered benign-appearing calcifications are present. Scattered benign-appearing lymph nodes are present. RIGHT BREAST: No significant suspicious finding. Linear scar marker upper outer quadrant, anterior breast. No mammographic abnormality. Ultrasound demonstrates an area of linear hypoechogenicity extending to the nipple, a dilated duct is suspected. No focal mass LEFT BREAST: No significant suspicious finding. Linear scar marker lower inner quadrant, anterior breast, in the region of the nipple. No mammographic abnormality. Ultrasound demonstrates an area of hypoechogenicity corresponding to the scar retroareolar. No focal mass. RECOMMENDATIONS: CLINICAL EVALUATION. PLEASE NOTE: A NORMAL MAMMOGRAM DOES NOT EXCLUDE THE POSSIBILITY OF BREAST CANCER. A CLINICALLY SUSPICIOUS PALPABLE LUMP SHOULD BE BIOPSIED. Dictated by: Gage Brownlee MD on 07/19/2023 at 07:44 Approved by: Gage Brownlee MD on 07/19/2023 at 07:49
== END 2023-07-16 12:47 | disposition home or self-care (01) ==
LOC: MAMMO 12:46
PROVIDERS: PCP Family Medicine; Visit Provider Physician Assistant
DX: Z87.2 Personal history of diseases of the skin and subcutaneous tissue (principal); Z80.8 Family history of malignant neoplasm of other organs or systems
CPT/HCPCS: 76642; 77066; G0279

== ENCOUNTER 2024-04-30 10:21 | Observation (INO) | payer OTHER, SELFPAY ==
[2024-04-30] VITALS (9 sets, daily range): BP systolic 105–146; BP diastolic 67–97; PULSE 50–90; TEMP 36.6–36.9; O2SAT 96–100; BMI 29.2; BMI 29.5
--- OUTSIDE RECORDS SUMMARY | 2024-04-30 10:28 | XMS_ITS | CCD ---
Author Organization [facility] Care Team Providers Care [employer] Name Role Phone Jericho Barreto Attending Unavailable [...] Primary Care Unavailable ONOFRE ROWELL Attending Unavailabl e HESHAM BARNES Attending Unavailable NO, PHYSICIAN Primary Care Unavailable NO, PHYSICIAN Primary Care Unavailable HESHAM BARNES Attending Unavailable DR LARRY TORRES Consulting Unavailable REQUEST, NONE LISTED Primary Care Unavaila ble SHAIKH Amol PEDRO Admitting Unavailable ELOISE PEDROIKH H Attending Unavailable DIANEN SHAW Consulting Unavailable SILVA SARMIENTO Consulting Unavailable ELOISE PEDROIKAmol Carmichael Consulting Unavailable OSMIN MICHAEL Consulting Unavailable RADHA RINALDI Consulting Unavailable DR OSMIN MCGEE Consulting Unavailable SILVA SARMIENTO Admitting Unavailable REQUEST, NONE LISTED Primary Care Unavaila SILVA Romero Attending Unavailable SILVA SARMIENTO Consulting Unavailable SILVA SARMIENTO Consulting Unavailable SILVA SARMIENTO Admitting Unavailable REQUEST, NONE LISTED Primary Care Unavaila SILVA Romero Attending Unavailable DR BOONE HOLT Consulting Unavailable SILVA SARMIENTO Admitting Unavailable REQUEST, NONE LISTED Primary Care Unavaila SILVA Romero Attending Unavailable ROSANNE, DR GOLD Hendrix Consulting Unavailable ABIGAIL, NONE LISTED Primary Care Unavailfredi SARMIENTO, SILVA Admitting Unavailable TORSTEN, SILVA Attending Unavailable TORSTEN, SILVA Consulting Unavailable BOONE LEA Consulting Unavailable Ashlyn Potter Primary Care Physician [phone] TAMMY, Neeraj Hendrix Attending Unavailable NILL, Neeraj Hendrix Attending Unavailable NILL, Neeraj Hendrix Attending Unavailable Unavailable Primary Care Provider UnavailANN Talley Attending Unavailable CUTLERDARNELL L Referring Unavailable [place] DO, Darnell L Unavailable [phone] [place] DO, Darnell L Primary Care Provider DARNELL NOWAK L Attending Unavailable ASHLYN DON Attending Unavailable IMTIAZ METZ Attending Unavailable CUTDARNELL DAMON Attending Unavailable LIZZETH CORTEZ Attending Unavailable ADIN GUZMAN Attending Unavailable LIZZETH CORTEZ Referring Unavailable ADIN GUZMAN Attending Unavailable LIZZETH CORTEZ Attending Unavailable DARNELL NOWAK Referring Unavailable Allergies Allergy Classification Reported Allergen(s) Allergy Type Date of Onset Reaction(s) Facility (11 sources) Penicillins; Translations: [PENICILLINS] Drug allergy (disorder) 8 [facility] Repository (5 sources) Penicillin; Translations: [penicillin] Drug Allergy [facility] Repository (3 sources) Tape 1 Propensity to adverse reactions to substance Redness, Itching [facility] Comment on above: plastic tape (1 source) Adhesive Tape; Translations: [Tape] Propensity to adverse reactions (disorder) [facility] Repository (6 sources) Penicillins Drug Intolerance 3 Unknown [facility] Medications Current Medications Medication Drug Class(es) Dates Sig (Normalized) Sig (Original) cephalexin 500 mg oral capsule (4 sources) Cephalosporin Antibacterial Start: 10-07-2019 End: 10-17-2019 take 1 capsule by mouth four times daily cephALEXin (KEFLEX) 500 MG capsule Take 1 (one) capsule (500 mg total) by mouth 4 (four) times a day for 10 days . 40 capsule 0 10/07/2019 10/17/2019 Active clindamycin 300 mg oral capsule (2 sources) Lincosamide Antibacterial Start: 04-26-2024 End: 05-06-2024 take 1 capsule by mouth in the morning, then take 1 capsule by mouth in the evening, then take 1 capsule by mouth at bedtime clindamycin (Cleocin) 300 MG capsule Indications: Left breast abscess Take 1 capsule (300 mg) by mouth in the morning and 1 capsule (300 mg) in the evening and 1 capsule (300 mg) before bedtime. Do all this for 10 days. 30 capsule 04/26/2024 05/06/2024 Active ondansetron 4 mg oral tablet (8 [...] mg / trimethoprim 160 mg oral tablet (6 sources) Dihydrofolate Reductase Inhibitor Antibacterial, Sulfonamide Antimicrobial Start: 04-26-2024 End: 05-06-2024 take 1 tablet by mouth once in the morning, then take 1 tablet by mouth once at bedtime sulfamethoxazol e-trimethoprim (Bactrim DS) 800-160 MG per tablet Indications: Left breast abscess Take 1 tablet by mouth in the morning and 1 tablet before bedtime. Do all this for 10 days. 20 tablet 04/26/2024 05/06/2024 Active Start: 10-07-2019 End: 10-17-2019 take 1 tablet by mouth twice daily sulfamethoxazole-trimethoprim (BACTRIM DS,SEPTRA DS) 800-160 mg per [...] [Fatigue, unspecified type] Episodic Nonmalignant breast conditions (18 sources) Abscess of breast; Translations: [Abscess of the breast and nipple] Onset: 05-18-2023 05-06-2023 Episodic Other aftercare (1 source) Follow-up status; Translations: [Dressing change] Episodic Other complications of (3 sources) Urinary tract infection in 05-06-2023 Episodic Other connective tissue disease (1 source) Muscle pain; Translations: [Myalgia] Episodic Other connective tissue disease (2 sources) Ganglion cyst of right foot; Translations: [Ganglion, right ankle and foot] 04-10-2024 Episodic Other connective tissue disease (2 sources) Plantar fasciitis; Translations: [Plantar fascial fibromatosis] 04-10-2024 Episodic Other nutritional; endocrine; and metabolic disorders [...] more but less than 30 05-12-2023 Episodic Other skin disorders (4 sources) Mass of foot; Translations: [Localized swelling, mass and lump, right lower limb] 04-10-2024 Episodic Pancreatic disorders (not diabetes) (1 source) Alcohol-induced chronic pancreatitis; Translations: [ALCOHOL-INDUCD CHRONIC PANCREATITIS] Onset: 10-15-2021 Chronic Pancreatic disorders (not diabetes) (8 sources) Alcohol induced acute pancreatitis without necrosis or infection; Translations: [Acute pancreatitis without necrosis or infection, unspecified] Onset: 07-08-2021 Episodic Residual codes; unclassified (1 source) Tobacco use; Translations: [Tobacco use] Onset: 07-20-2023 Episodic Skin and subcutaneous tissue infections (1 source) [...] Unclassified (3 sources) Tobacco use during 11-23-2011 Unclassified (1 source) Consult Onset: 07-20-2023 Past or Other Problems Problem Classification Problem [...] OUT PT OTH RSN] Onset: 09-02-2021 Episodic Residual codes; unclassified (11 sources) Tobacco user; Translations: [Tobacco use] Onset: 07-20-2023 12-04-2012 Episodic Comment on above: Added secondary to s ocial history documentation. Unclassified (1 source) CONTACT W/AND (SUSP) EXPOS [...] Range Facility [facility] 06-07-2023 Lab Reports [id number] .00TIFF Normal [facility] 06-05-2023 Lab Reports [id number] .00TIFF Normal [facility] 06-04-2023 Lab Reports [id number]#1 .00TIFF [facility] Lab Reports [id number]#1 .00TIFF [facility] Ambulatory Visit Summaryon 1 07-18-2022 [...] for choosing us for your care. Normal [facility] General Surgery Office/Clini c Noteon 05-18-2023 General Surgery Office/Clinic Note Chief Complaint post operative follow up HPI Staff 18 day post operative follow up post I/D left breast abscess. Completing daily dressing changes at [facility]. Reports moderate intermittent discomfort, taking Ibuprofen 800mg [...] - Not Given Patient Refuses Normal [facility] Comment on above: Result Comment: [...] dressing changes daily at infusion center at [facility]; completed course of antibiotics; taking ibuprofen as [...] revision if areolar skin remains retracted. [facility]: [facility] Prescription, daily dressing change, Complete daily damp [...] inactivated - Not Given Patient Refuses Normal [facility] Comment on above: Result Comment: Elec tronically Signed By: TAMMY DELGADO, Neeraj Hendrix\.br\Date and Time Signed: 05/13/23 19:09 EST Ambulatory Visit Summaryon 1 07-12-2022 Ambulatory Visit Summary SHANNAN LOPEZ Fredi :1985 Visit Date:05/12/2023 Ambulatory Visit Instructions Your [...] for choosing us for your care. Normal [facility] 05-11-2023 Lab Reports [id number]. 00TIFF Normal [facility] Pathology Noteon 05-10-2023 Pathology Note [id number] .00TIFF Normal [facility] Consultation Noteon 05-05-20 Consultation Note [id number]#1 .00TIFF Normal [facility] Consultation Note [id number] 1 [id number] .00TIFF Normal [facility] Operative Reporton Operative Report [id number] .00TIFF Normal [facility] Consultation Noteon 05-04-20 Consultation Note [id number] .00TIFF Normal [facility] ED Note-Physicianon 05-04-20 ED Note-Physician [id number]#1 .00TIFF Normal [facility] ED Note-Physician [id number] .00TIFF Normal [facility] AMMONIAon 10-12-2021 Ammonia (P) [Moles/Vol] 21 umol/L Normal 11-32 [facility] Comment on above: Performed By: #### P TT, PT #### [facility] [address] [place] [address] Dr. Celi Guerin AMYLASEon 10-12-2021 Amylase [Catalytic activity/Vol] 535 U/L Critically high 25-115 [facility] Comment on above: Result Comment: repe ated Performed By: #### C MP, LIPA, ASHLYN #### [facility] [address] [place] [address] Dr. Celi Guerin CBC AUTO DIFFon 10-12-2021 BASO # 0.0 103/ul Normal 0.0-0.1 [facility] Comment on above: Performed By: #### P TT, PT #### [facility] [address] [place] [address] Dr. Celi Guerin Basophils/100 WBC (Bld) 0.1 % Critically low 0.2-2.0 [facility] Comment on above: Performed By: #### P TT, PT #### [facility] [address] [place] [address] Dr. Celi Guerin EO # 0.0 103/ul Normal 0.0-0.7 [facility] Comment on above: Performed By: #### P TT, PT #### [facility] [address] [place] [address] Dr. Celi Guerin Eosinophils/100 WBC (Bld) 0.4 % Critically low 0.9-7.0 [facility] Comment on above: Performed By: #### P TT, PT #### [facility] [address] [place] [address] Dr. Celi Guerin Erythrocyte distribution width (RBC) [Ratio] 18.6 % Critically high 11.0-15.0 [facility] Comment on above: Performed By: #### P TT, PT #### [facility] [address] [place] [address] Dr. Celi Guerin Hematocrit (Bld) [Volume fraction] 29.3 % Critically low 36.0-48.0 [facility] Comment on above: Performed By: #### P TT, PT #### [facility] [address] [address] [address] Celi Guerin Hemoglobin (Bld) [Mass/Vol] 9.4 g/dL Critically low 12.0-16.0 [facility] Comment on above: Performed By: #### P TT, PT #### [facility] [address] [place] [address] Dr. Celi Guerin IG # 0.04 10e3/ul Critically high 0.00-0.03 [facility] Comment on above: Performed By: #### P TT, PT #### [facility] [address] [place] [address] Dr. Celi Guerin IG % 0.5 % Normal 0.0-0.5 [facility] Comment on above: Performed By: #### P TT, PT #### [facility] [address] [place] [address] Dr. Celi Guerin LYMPH # 1.1 103/ul Critically low 1.2-3.8 [facility] Comment on above: Performed By: #### P TT, PT #### [facility] [address] [place] [address] Dr. Celi Guerin Lymphocytes/100 WBC (Bld) 14.2 % Critically low 20.5-60.0 [facility] Comment on above: Performed By: #### P TT, PT #### [facility] [address] [place] [address] Dr. Celi Guerin MANUAL DIFF REQ NO Normal [facility] Comment on above: Performed By: #### P TT, PT #### [facility] [address] [place] [address] Dr. Celi Guerin MCH (RBC) [Entitic mass] 25.8 pg Critically low 26.7-34.0 [facility] Comment on above: Performed By: #### P TT, PT #### [facility] [address] [place] [address] Dr. Celi Guerin MCHC (RBC) [Mass/Vol] 32.1 g/dL Normal 29.9-35.2 [facility] Comment on above: Performed By: #### P TT, PT #### [facility] [address] [place] [address] Dr. Celi Guerin MCV (RBC) [Entitic vol] 80.5 fL Critically low 81.0-99.0 [facility] Comment on above: Performed By: #### P TT, PT #### [facility] [address] [place] [address] Dr. Celi Guerin MONO # 0.7 103/ul Normal 0.3-0.8 [facility] Comment on above: Performed By: #### P TT, PT #### [facility] [address] [place] [address] Dr. Celi Guerin Monocytes/100 WBC (Bld) 8.4 % Normal 1.7-12.0 [facility] Comment on above: Performed By: #### P TT, PT #### [facility] [address] [place] [address] Dr. Celi Guerin NEUT # 5.9 103/ul Normal 1.4-6.5 [facility] Comment on above: Performed By: #### P TT, PT #### [facility] [address] [place] [address] Dr. Celi Guerin Neutrophils/100 WBC (Bld) 76.4 % Critically high 43.0-75.0 [facility] Comment on above: Performed By: #### P TT, PT #### [facility] [address] [place] [address] Dr. Celi Guerin PLT 63 103/ul Critically low 150-450 [facility] Comment on above: Performed By: #### P TT, PT #### [facility] [address] [place] [address] Dr. Celi Guerin RBC 3.64 106/ul Critically low 4.20-5.40 [facility] Comment on above: Performed By: #### P TT, PT #### [facility] [address] [place] [address] Dr. Celi Guerin WBC 7.8 103/ul Normal 4.0-11.0 [facility] Comment on above: Performed By: #### P TT, PT #### [facility] [address] [place] [address] Dr. Celi Guerin LIPASEon 10-12-2021 Lipase [Catalytic activity/Vol] U/L Critically high 23.0-300.0 [facility] Comment on above: Result Comment: repe ated Performed By: #### E SAMEERFLORMEMO #### [facility] [address] [place] [address] Dr. Celi Guerin PROF 14(COMP METB)on 022 Albumin [Mass/Vol] 2.9 g/dL Critically low 3.4-5.0 [facility] Comment on above: Performed By: #### C ANTWAN LIPA, ASHLYN #### [facility] [address] [place] [address] Dr. Celi Guerin Albumin/Globulin [Mass ratio] 1.0 {ratio} Normal [facility] Comment on above: Performed By: #### C MP LIPA, ASHLYN #### [facility] [address] [place] [address] Dr. Celi Guerin ALP [Catalytic activity/Vol] 88 U/L Normal 46-116 [facility] Comment on above: Performed By: #### C MP LIPA, ASHLYN #### [facility] [address] [place] [address] Dr. Celi Guerin ALT [Catalytic activity/Vol] 34 U/L Normal 14-59 [facility] Comment on above: Performed By: #### C MP LIPA, ASHLYN #### [facility] [address] [place] [address] Dr. Celi Guerin Anion gap [Moles/Vol] 12.9 mmol/L Normal [facility] Comment on above: Performed By: #### C MP LIPA, ASHLYN #### [facility] [address] [place] [address] Dr. Celi Guerin AST [Catalytic activity/Vol] 70 U/L Critically high 15-37 [facility] Comment on above: Performed By: #### C MP, LIPA, ASHLYN #### [facility] [address] [place] [address] Dr. Celi Guerin Bilirubin [Mass/Vol] 1.2 mg/dL Normal 0.2-1.3 [facility] Comment on above: Performed By: #### C PRIYANKA MONCADAA, ASHLYN #### [facility] [address] [address] [address] Celi Guerin Calcium [Mass/Vol] 7.4 mg/dL Critically low 8.5-10.1 [facility] Comment on above: Performed By: #### C ANTWAN LIPA, ASHLYN #### [facility] [address] [address] [address] Celi Guerin Chloride [Moles/Vol] 98 mmol/L Normal 98-107 [facility] Comment on above: Performed By: #### C ANTWAN LIPA, ASHLYN #### [facility] [address] [place] [address] Dr. Celi Guerin CO2 [Moles/Vol] 23.9 mmol/L Normal 22.0-30.0 [facility] Comment on above: Performed By: #### C ANTWAN LIPA, ASHLYN #### [facility] [address] [place] [address] Dr. Celi Guerin Creatinine [Mass/Vol] 0.41 mg/dL Critically low 0.52-1.04 [facility] Comment on above: Performed By: #### C PRIYANKA MONCADAA, ASHLYN #### [facility] [address] [place] [address] Dr. Celi Guerin EGFR-AF PALAUAN >60 Normal >=60 [facility] Comment on above: Performed By: #### C MP LIPA, ASHLYN #### [facility] [address] [place] [address] Dr. Celi Guerin EGFR-NON AF PALAUAN >60 Normal >=60 [facility] Comment on above: Performed By: #### C MP LIPA, ASHLYN #### [facility] [address] [place] [address] Dr. Celi Guerin Globulin (S) [Mass/Vol] 2.9 g/dL Normal [facility] Comment on above: Performed By: #### C MP, LIPA, ASHLYN #### [facility] [address] [place] [address] Dr. Celi Guerin Glucose [Mass/Vol] 82 mg/dL Normal 74-106 [facility] Comment on above: Performed By: #### C ANTWAN LIPA, ASHLYN #### [facility] [address] [address] [address] Celi Guerin Potassium [Moles/Vol] 2.8 mmol/L Critically low 3.4-5.0 [facility] Comment on above: Result Comment: repe ated Performed By: #### C MP LIPA, ASHLYN #### [facility] [address] [place] [address] Dr. Celi Guerin Protein [Mass/Vol] 5.8 g/dL Critically low 6.1-8.2 [facility] Comment on above: Performed By: #### C ANTWAN LIPA, ASHLYN #### [facility] [address] [place] [address] Dr. Celi Guerin Sodium [Moles/Vol] 131 mmol/L Critically low 137-145 [facility] Comment on above: Performed By: #### C ANTWAN LIPA, ASHLYN #### [facility] [address] [place] [address] Dr. Celi Guerin Urea nitrogen [Mass/Vol] 2.0 mg/dL Critically low 7.0-18.0 [facility] Comment on above: Performed By: #### C ANTWAN LIPA, ASHLYN #### [facility] [address] [place] [address] Dr. Celi Guerin Urea nitrogen/Creatinine [Mass ratio] 4.9 mg/mg Normal [facility] Comment on above: Performed By: #### C ANTWAN LIPA, ASHLYN #### [facility] [address] [place] [address] Dr. Celi Guerin AMMONIAon 10-11-2021 Ammonia (P) [Moles/Vol] 23 umol/L Normal 11-32 [facility] Comment on above: Performed By: #### D RUGRPD #### [facility] [address] [place] [address] Dr. Celi Guerin AMYLASEon 10-11-2021 Amylase [Catalytic activity/Vol] 1078 U/L Critically high 25-115 [facility] Comment on above: Result Comment: repe ated Performed By: #### D RUGRPD #### [facility] [address] [place] [address] Dr. Celi Guerin CBC AUTO DIFFon 10-11-2021 BASO # 0.0 103/ul Normal 0.0-0.1 [facility] Comment on above: Performed By: #### P TT, PT #### [facility] [address] [place] [address] Dr. Celi Guerin Basophils/100 WBC (Bld) 0.1 % Critically low 0.2-2.0 [facility] Comment on above: Performed By: #### P TT, PT #### [facility] [address] [place] [address] Dr. Celi Guerin EO # 0.0 103/ul Normal 0.0-0.7 [facility] Comment on above: Performed By: #### P TT, PT #### [facility] [address] [place] [address] Dr. Celi Guerin Eosinophils/100 WBC (Bld) 0.1 % Critically low 0.9-7.0 [facility] Comment on above: Performed By: #### P TT, PT #### [facility] [address] [place] [address] Dr. Celi Guerin Erythrocyte distribution width (RBC) [Ratio] 18.5 % Critically high 11.0-15.0 [facility] Comment on above: Performed By: #### P TT, PT #### [facility] [address] [place] [address] Dr. Celi Guerin Hematocrit (Bld) [Volume fraction] 33.2 % Critically low 36.0-48.0 [facility] Comment on above: Performed By: #### P TT, PT #### [facility] [address] [place] [address] Dr. Celi Guerin Hemoglobin (Bld) [Mass/Vol] 10.5 g/dL Critically low 12.0-16.0 [facility] Comment on above: Performed By: #### P TT, PT #### [facility] [address] [place] [address] Dr. Celi Guerin IG # 0.03 10e3/ul Normal 0.00-0.03 [facility] Comment on above: Performed By: #### P TT, PT #### [facility] [address] [address] [address] Celi Guerin IG % 0.4 % Normal 0.0-0.5 [facility] Comment on above: Performed By: #### P TT, PT #### [facility] [address] [address] [address] Celi Guerin LYMPH # 0.8 103/ul Critically low 1.2-3.8 [facility] Comment on above: Performed By: #### P TT, PT #### [facility] [address] [place] [address] Dr. Celi Guerin Lymphocytes/100 WBC (Bld) 10.6 % Critically low 20.5-60.0 [facility] Comment on above: Performed By: #### P TT, PT #### [facility] [address] [place] [address] Dr. Celi Guerin MANUAL DIFF REQ NO Normal [facility] Comment on above: Performed By: #### P TT, PT #### [facility] [address] [place] [address] Dr. Celi Guerin MCH (RBC) [Entitic mass] 25.9 pg Critically low 26.7-34.0 [facility] Comment on above: Performed By: #### P TT, PT #### [facility] [address] [place] [address] Dr. Celi Guerin MCHC (RBC) [Mass/Vol] 31.6 g/dL Normal 29.9-35.2 [facility] Comment on above: Performed By: #### P TT, PT #### [facility] [address] [place] [address] Dr. Celi Guerin MCV (RBC) [Entitic vol] 82.0 fL Normal 81.0-99.0 [facility] Comment on above: Performed By: #### P TT, PT #### [facility] [address] [place] [address] Dr. Celi Guerin MONO # 0.4 103/ul Normal 0.3-0.8 [facility] Comment on above: Performed By: #### P TT, PT #### [facility] [address] [place] [address] Dr. Clei Guerin Monocytes/100 WBC (Bld) 5.6 % Normal 1.7-12.0 [facility] Comment on above: Performed By: #### P TT, PT #### [facility] [address] [place] [address] Dr. Celi Guerin NEUT # 6.4 103/ul Normal 1.4-6.5 [facility] Comment on above: Performed By: #### P TT, PT #### [facility] [address] [place] [address] Dr. Celi Guerin Neutrophils/100 WBC (Bld) 83.2 % Critically high 43.0-75.0 [facility] Comment on above: Performed By: #### P TT, PT #### [facility] [address] [place] [address] Dr. Celi Guerin Platelet mean volume (Bld) [Entitic vol] 11.9 fL Normal 9.5-13.5 [facility] Comment on above: Performed By: #### P TT, PT #### [facility] [address] [place] [address] Dr. Celi Guerin PLT 59 103/ul Critically low 150-450 [facility] Comment on above: Performed By: #### P TT, PT #### [facility] [address] [place] [address] Dr. Celi Guerin RBC 4.05 106/ul Critically low 4.20-5.40 [facility] Comment on above: Performed By: #### P TT, PT #### [facility] [address] [place] [address] Dr. Celi Guerin WBC 7.7 103/ul Normal 4.0-11.0 [facility] Comment on above: Performed By: #### P TT, PT #### [facility] [address] ABD/PELVIS WO CONon [...] RADHA RINALDI Date: 2021-10-11 09:36 Normal [facility] CT HEAD WO CONon 10-11-2021 CT HEAD [...] OSMIN MICHAEL Date: 2021-10-11 09:38 Normal [facility] LIPASEon 10-11-2021 Lipase [Catalytic activity/Vol] U/L Critically high 23.0-300.0 [facility] Comment on above: Result Comment: repe ated Performed By: #### D RUGRPD #### [facility] [address] [place] [address] Dr. Celi Guerin MAGNESIUMon 10-11-2021 Magnesium [Mass/Vol] 1.7 mg/dL Normal 1.6-2.3 [facility] Comment on above: Performed By: #### P TT, PT #### [facility] [address] [place] [address] Dr. Celi Guerin PHOSPHORUSon 10-11-2021 Phosphate [Mass/Vol] 1.5 mg/dL Critically low 2.5-4.5 [facility] Comment on above: Performed By: #### P TT, PT #### [facility] [address] [place] [address] Dr. Celi Guerin PROF 14(COMP METB)on 022 Albumin [Mass/Vol] 3.0 g/dL Critically low 3.4-5.0 [facility] Comment on above: Performed By: #### P TT, PT #### [facility] [address] [place] [address] Dr. Celi Guerin Albumin/Globulin [Mass ratio] 1.0 {ratio} Normal [facility] Comment on above: Performed By: #### P TT, PT #### [facility] [address] [place] [address] Dr. Celi Guerin ALP [Catalytic activity/Vol] 78 U/L Normal 46-116 [facility] Comment on above: Performed By: #### P TT, PT #### [facility] [address] [place] [address] Dr. Celi Guerin ALT [Catalytic activity/Vol] 31 U/L Normal 14-59 [facility] Comment on above: Performed By: #### P TT, PT #### [facility] [address] [place] [address] Dr. Celi Guerin Anion gap [Moles/Vol] 16.8 mmol/L Normal [facility] Comment on above: Performed By: #### P TT, PT #### [facility] [address] [place] [address] Dr. Celi Guerin AST [Catalytic activity/Vol] 48 U/L Critically high 15-37 [facility] Comment on above: Performed By: #### P TT, PT #### [facility] [address] [place] [address] Dr. Celi Guerin Bilirubin [Mass/Vol] 1.1 mg/dL Normal 0.2-1.3 [facility] Comment on above: Performed By: #### P TT, PT #### [facility] [address] [place] [address] Dr. Celi Guerin Calcium [Mass/Vol] 7.6 mg/dL Critically low 8.5-10.1 [facility] Comment on above: Performed By: #### P TT, PT #### [facility] [address] [place] [address] Dr. Ceil Guerin Chloride [Moles/Vol] 97 mmol/L Critically low 98-107 [facility] Comment on above: Performed By: #### P TT, PT #### [facility] [address] [place] [address] Dr. Celi Guerin CO2 [Moles/Vol] 22.3 mmol/L Normal 22.0-30.0 [facility] Comment on above: Performed By: #### P TT, PT #### [facility] [address] [place] [address] Dr. Celi Guerin Creatinine [Mass/Vol] 0.39 mg/dL Critically low 0.52-1.04 [facility] Comment on above: Performed By: #### P TT, PT #### [facility] [address] [place] [address] Dr. Celi Guerin EGFR-AF PALAUAN >60 Normal >=60 [facility] Comment on above: Performed By: #### P TT, PT #### [facility] [address] [address] [address] Celi Guerin EGFR-NON AF PALAUAN >60 Normal >=60 [facility] Comment on above: Performed By: #### P TT, PT #### [facility] [address] [address] [address] Celi Guerin Globulin (S) [Mass/Vol] 3.1 g/dL Normal [facility] Comment on above: Performed By: #### P TT, PT #### [facility] [address] [address] [address] Celi Guerin Glucose [Mass/Vol] 63 mg/dL Critically low 74-106 [facility] Comment on above: Performed By: #### P TT, PT #### [facility] [address] [address] [address] Celi Guerin Potassium [Moles/Vol] 3.1 mmol/L Critically low 3.4-5.0 [facility] Comment on above: Performed By: #### P TT, PT #### [facility] [address] [place] [address] Dr. Celi Guerin Protein [Mass/Vol] 6.1 g/dL Normal 6.1-8.2 [facility] Comment on above: Performed By: #### P TT, PT #### [facility] [address] [place] [address] Dr. Celi Guerin Sodium [Moles/Vol] 133 mmol/L Critically low 137-145 [facility] Comment on above: Performed By: #### P TT, PT #### [facility] [address] [address] [address] Celi Guerin Urea nitrogen [Mass/Vol] 3.0 mg/dL Critically low 7.0-18.0 [facility] Comment on above: Performed By: #### P TT, PT #### [facility] [address] [address] [address] Celi Guerin Urea nitrogen/Creatinine [Mass ratio] 7.7 mg/mg Normal [facility] Comment on above: Performed By: #### P TT, PT #### [facility] [address] [place] [address] Dr. Celi Guerin AMMONIAon 10-10-2021 Ammonia (P) [Moles/Vol] 39 umol/L Critically high 11-32 [facility] Comment on above: Performed By: #### E YURI ESTRELLARO #### [facility] [address] [place] [address] Dr. Celi Guerin AMYLASEon 10-10-2021 Amylase [Catalytic activity/Vol] 892 U/L Critically high 25-115 [facility] Comment on above: Result Comment: Test Repeated. Critical ValueVerified Performed By: #### D RUGRPD #### [facility] [address] [place] [address] Dr. Celi Guerin CBC AUTO DIFFon 10-10-2021 BASO # 0.0 103/ul Normal 0.0-0.1 [facility] Comment on above: Performed By: #### P TT, PT #### [facility] [address] [place] [address] Dr. Celi Guerin Basophils/100 WBC (Bld) 0.2 % Normal 0.2-2.0 [facility] Comment on above: Performed By: #### P TT, PT #### [facility] [address] [place] [address] Dr. Celi Guerin EO # 0.0 103/ul Normal 0.0-0.7 [facility] Comment on above: Performed By: #### P TT, PT #### [facility] [address] [place] [address] Dr. Celi Guerin Eosinophils/100 WBC (Bld) 0.0 % Critically low 0.9-7.0 [facility] Comment on above: Performed By: #### P TT, PT #### [facility] [address] [place] [address] Dr. Celi Guerin Erythrocyte distribution width (RBC) [Ratio] 18.2 % Critically high 11.0-15.0 [facility] Comment on above: Performed By: #### P TT, PT #### [facility] [address] [place] [address] Dr. Celi Guerin Hematocrit (Bld) [Volume fraction] 32.8 % Critically low 36.0-48.0 [facility] Comment on above: Performed By: #### P TT, PT #### [facility] [address] [place] [address] Dr. Celi Guerin Hemoglobin (Bld) [Mass/Vol] 10.2 g/dL Critically low 12.0-16.0 [facility] Comment on above: Performed By: #### P TT, PT #### [facility] [address] [place] [address] Dr. Celi Guerin IG # 0.04 10e3/ul Critically high 0.00-0.03 [facility] Comment on above: Performed By: #### P TT, PT #### [facility] [address] [place] [address] Dr. Celi Guerin IG % 0.7 % Critically high 0.0-0.5 [facility] Comment on above: Performed By: #### P TT, PT #### [facility] [address] [place] [address] Dr. Celi Guerin LYMPH # 0.9 103/ul Critically low 1.2-3.8 [facility] Comment on above: Performed By: #### P TT, PT #### [facility] [address] [place] [address] Dr. Celi Guerin Lymphocytes/100 WBC (Bld) 15.4 % Critically low 20.5-60.0 [facility] Comment on above: Performed By: #### P TT, PT #### [facility] [address] [place] [address] Dr. Celi Guerin MANUAL DIFF REQ NO Normal [facility] Comment on above: Performed By: #### P TT, PT #### [facility] [address] [place] [address] Dr. Celi Guerin MCH (RBC) [Entitic mass] 26.0 pg Critically low 26.7-34.0 [facility] Comment on above: Performed By: #### P TT, PT #### [facility] [address] [place] [address] Dr. Celi Guerin MCHC (RBC) [Mass/Vol] 31.1 g/dL Normal 29.9-35.2 [facility] Comment on above: Performed By: #### P TT, PT #### [facility] [address] [place] [address] Dr. Celi Guerin MCV (RBC) [Entitic vol] 83.5 fL Normal 81.0-99.0 [facility] Comment on above: Performed By: #### P TT, PT #### [facility] [address] [place] [address] Dr. Celi Guerin MONO # 0.4 103/ul Normal 0.3-0.8 [facility] Comment on above: Performed By: #### P TT, PT #### [facility] [address] [place] [address] Dr. Celi Guerin Monocytes/100 WBC (Bld) 7.5 % Normal 1.7-12.0 [facility] Comment on above: Performed By: #### P TT, PT #### [facility] [address] [place] [address] Dr. Celi Guerin NEUT # 4.5 103/ul Normal 1.4-6.5 [facility] Comment on above: Performed By: #### P TT, PT #### [facility] [address] [place] [address] Dr. Celi Guerin Neutrophils/100 WBC (Bld) 76.2 % Critically high 43.0-75.0 [facility] Comment on above: Performed By: #### P TT, PT #### [facility] [address] [place] [address] Dr. Celi Guerin Platelet mean volume (Bld) [Entitic vol] 10.6 fL Normal 9.5-13.5 [facility] Comment on above: Performed By: #### P TT, PT #### [facility] [address] [place] [address] Dr. Celi Guerin PLT 53 103/ul Critically low 150-450 [facility] Comment on above: Performed By: #### P TT, PT #### [facility] [address] [address] [address] Celi Guerin RBC 3.93 106/ul Critically low 4.20-5.40 [facility] Comment on above: Performed By: #### P TT, PT #### [facility] [address] [address] [address] Celi Guerin WBC 5.9 103/ul Normal 4.0-11.0 [facility] Comment on above: Performed By: #### P TT, PT #### [facility] [address] [place] [address] Dr. Celi Guerin DRUG SCREEN RAPID (URINE)on 10-10-2021 AMP Negative Normal NEGATIVE [facility] Comment on above: Performed By: #### D RUGRPD #### [facility] [address] [place] [address] Dr. Celi Guerin BAR Positive Abnormal NEGATIVE [facility] Comment on above: Performed By: #### D RUGRPD #### [facility] [address] [place] [address] Dr. Celi Guerin BUP Negative Normal NEGATIVE [facility] Comment on above: Performed By: #### D RUGRPD #### [facility] [address] [place] [address] Dr. Celi Guerin BZO Positive Abnormal NEGATIVE [facility] Comment on above: Performed By: #### D RUGRPD #### [facility] [address] [place] [address] Dr. Celi Guerin REED Negative Normal NEGATIVE [facility] Comment on above: Performed By: #### D RUGRPD #### [facility] [address] [place] [address] Dr. Celi Guerin CUT-OFFS SEE BELOW Normal [facility] Comment on above: Result Comment: AMP (Amphetamine): 500ng/mL, BAR (Barbituates): 200 ng/mL, BZO (Benzodiazepines): 150 ng/mL, BUP (Buprenorphine): 10 ng/mL, REED (Cocaine): 150 ng/mL, mAMP (Methamphetamine): 500 ng/mL, MTD (Methadone): 200 ng/mL, OPI (Opiates): 100 ng/mL, OXY (Oxycodone): 100 ng/mL, PCP (Phencyclidine): 25 ng/mL, PPX (Propoxyphene): 300 ng/mL, THC (Cannabinoids): 50 ng/mL, TCA (Trycyclic Antidepressants): 300 ng/mL Performed By: #### D RUGRPD #### [facility] [address] [place] [address] Dr. Celi Guerin DRUG CUT HEADER DRUG CLASS TEST SYSTEM CUT-OFF CONCENTRATIONS ARE FOLLOWS: Normal [facility] Comment on above: Performed By: #### D RUGRPD #### [facility] [address] [place] [address] Dr. Celi Guerin mAMP Negative Normal NEGATIVE [facility] Comment on above: Performed By: #### D RUGRPD #### [facility] [address] [place] [address] Dr. Celi Guerin MTD Negative Normal NEGATIVE [facility] Comment on above: Performed By: #### D RUGRPD #### [facility] [address] [place] [address] Dr. Celi Guerin OPI Positive Abnormal NEGATIVE [facility] Comment on above: Performed By: #### D RUGRPD #### [facility] [address] [place] [address] Dr. Celi Guerin OXY Negative Normal NEGATIVE [facility] Comment on above: Performed By: #### D RUGRPD #### [facility] [address] [place] [address] Dr. Celi Guerin PCP Negative Normal NEGATIVE [facility] Comment on above: Performed By: #### D RUGRPD #### [facility] [address] [place] [address] Dr. Celi Guerin PPX Negative Normal NEGATIVE [facility] Comment on above: Performed By: #### D RUGRPD #### [facility] [address] [place] [address] Dr. Celi Guerin TCA Negative Normal NEGATIVE [facility] Comment on above: Performed By: #### D RUGRPD #### [facility] [address] [place] [address] Dr. Celi Guerin THC Positive Abnormal NEGATIVE [facility] Comment on above: Performed By: #### D RUGRPD #### [facility] [address] [place] [address] Dr. Celi Guerin ER URINE PROFILEon 2 Bilirubin Ql (U) Negative Normal NEGATIVE [facility] Comment on above: Performed By: #### P TT, PT #### [facility] [address] [place] [address] Dr. Celi Guerin Clarity (U) CLEAR Normal CLEAR [facility] Comment on above: Performed By: #### P TT, PT #### [facility] [address] [place] [address] Dr. Celi Guerin Color (U) YELLOW Normal YELLOW [facility] Comment on above: Performed By: #### P TT, PT #### [facility] [address] [place] [address] Dr. Celi LUCAS A micrscopic examination will be performed if indicated. Normal [facility] Comment on above: Performed By: #### P TT, PT #### [facility] [address] [place] [address] Dr. Celi Guerin Glucose Ql (U) Negative Normal NEGATIVE [facility] Comment on above: Performed By: #### P TT, PT #### [facility] [address] [place] [address] Dr. Celi Guerin Hemoglobin Ql (U) MODERATE Abnormal NEGATIVE [facility] Comment on above: Performed By: #### P TT, PT #### [facility] [address] [place] [address] Dr. Celi Guerin Ketones Ql (U) 15 mg/dl Abnormal NEGATIVE [facility] Comment on above: Performed By: #### P TT, PT #### [facility] [address] [place] [address] Dr. Celi Guerin LEUKOCYTES Negative Normal NEGATIVE [facility] Comment on above: Performed By: #### P TT, PT #### [facility] [address] [place] [address] Dr. Celi Guerin Nitrite Ql (U) Negative Normal NEGATIVE [facility] Comment on above: Performed By: #### P TT, PT #### [facility] [address] [place] [address] Dr. Ceil Guerin pH (U) 6.0 [pH] Normal 5-9 [facility] Comment on above: Performed By: #### P TT, PT #### [facility] [address] [place] [address] Dr. Celi Guerin Protein (U) [Mass/Vol] 30 mg/dL Abnormal NEGATIVE/ TRACE [facility] Comment on above: Performed By: #### P TT, PT #### [facility] [address] [place] [address] Dr. Celi Guerin SPEC GRAVITY 1.025 Normal 1.005-<=1.025 [facility] Comment on above: Performed By: #### P TT, PT #### [facility] [address] [place] [address] Dr. Celi Guerin UR MICRO IND INDICATED Normal [facility] Comment on above: Performed By: #### P TT, PT #### [facility] [address] [place] [address] Dr. Celi Guerin Urobilinogen Qn (U) 0.2 {Irlanda'U}/dL Normal 0.2 - 1. 0 [facility] Comment on above: Performed By: #### P TT, PT #### [facility] [address] [place] [address] Dr. Celi Guerin LIPASEon 10-10-2021 Lipase [Catalytic activity/Vol] U/L Critically high 23.0-300.0 [facility] Comment on above: Performed By: #### D RUGRPD #### [facility] [address] [place] [address] Dr. Celi Guerin PROF 14(COMP METB)on 022 Albumin [Mass/Vol] 3.4 g/dL Normal 3.4-5.0 [facility] Comment on above: Performed By: #### D RUGRPD #### [facility] [address] [address] [address] Celi Guerin Albumin/Globulin [Mass ratio] 1.1 {ratio} Normal [facility] Comment on above: Performed By: #### D RUGRPD #### [facility] [address] [address] [address] Celi Guerin ALP [Catalytic activity/Vol] 81 U/L Normal 46-116 [facility] Comment on above: Performed By: #### D RUGRPD #### [facility] [address] [address] [address] Celi Guerin ALT [Catalytic activity/Vol] 36 U/L Normal 14-59 [facility] Comment on above: Performed By: #### D RUGRPD #### [facility] [address] [address] [address] Celi Guerin Anion gap [Moles/Vol] 13.4 mmol/L Normal [facility] Comment on above: Performed By: #### D RUGRPD #### [facility] [address] [address] [address] Celi Guerin AST [Catalytic activity/Vol] 53 U/L Critically high 15-37 [facility] Comment on above: Performed By: #### D RUGRPD #### [facility] [address] [address] [address] Celi Guerin Bilirubin [Mass/Vol] 1.1 mg/dL Normal 0.2-1.3 [facility] Comment on above: Performed By: #### D RUGRPD #### [facility] [address] [address] [address] Celi Guerin Calcium [Mass/Vol] 7.7 mg/dL Critically low 8.5-10.1 [facility] Comment on above: Performed By: #### D RUGRPD #### [facility] [address] [address] [address] Celi Guerin Chloride [Moles/Vol] 98 mmol/L Normal 98-107 [facility] Comment on above: Performed By: #### D RUGRPD #### [facility] [address] [address] [address] Celi Guerin CO2 [Moles/Vol] 27.3 mmol/L Normal 22.0-30.0 [facility] Comment on above: Performed By: #### D RUGRPD #### [facility] [address] [address] [address] Celi Guerin Creatinine [Mass/Vol] 0.38 mg/dL Critically low 0.52-1.04 [facility] Comment on above: Performed By: #### D RUGRPD #### [facility] [address] [address] [address] Celi Guerin EGFR-AF PALAUAN >60 Normal >=60 [facility] Comment on above: Performed By: #### D RUGRPD #### [facility] [address] [address] [address] Celi Guerin EGFR-NON AF PALAUAN >60 Normal >=60 [facility] Comment on above: Performed By: #### D RUGRPD #### [facility] [address] [address] [address] Celi Guerin Globulin (S) [Mass/Vol] 3.1 g/dL Normal [facility] Comment on above: Performed By: #### D RUGRPD #### [facility] [address] [address] [address] Celi Guerin Glucose [Mass/Vol] 94 mg/dL Normal 74-106 [facility] Comment on above: Performed By: #### D RUGRPD #### [facility] [address] [address] [address] Celi Guerin Potassium [Moles/Vol] 3.7 mmol/L Normal 3.4-5.0 [facility] Comment on above: Performed By: #### D RUGRPD #### [facility] [address] [address] [address] Celi Guerin Protein [Mass/Vol] 6.5 g/dL Normal 6.1-8.2 [facility] Comment on above: Performed By: #### D RUGRPD #### [facility] [address] [address] [address] Celi Guerin Sodium [Moles/Vol] 135 mmol/L Critically low 137-145 [facility] Comment on above: Performed By: #### D RUGRPD #### [facility] [address] [address] [address] Celi Guerin Urea nitrogen [Mass/Vol] 6.0 mg/dL Critically low 7.0-18.0 [facility] Comment on above: Performed By: #### D RUGRPD #### [facility] [address] [place] [address] Dr. Celi Guerin Urea nitrogen/Creatinine [Mass ratio] 15.8 mg/mg Normal [facility] Comment on above: Performed By: #### D RUGRPD #### [facility] [address] [place] [address] Dr. Celi Guerin URINE MICROSCOPIC ONLYon BACTERIA TRACE Abnormal NONE SEEN [facility] Comment on above: Performed By: #### P TT, PT #### [facility] [address] [place] [address] Dr. Celi Guerin Bacteria identified Cx Nom (U) NOT INDICATED Normal [facility] Comment on above: Performed By: #### P TT, PT #### [facility] [address] [place] [address] Dr. Celi Guerin CAST NONE SEEN Normal NONE SEEN [facility] Comment on above: Performed By: #### P TT, PT #### [facility] [address] [place] [address] Dr. Celi Guerin Crystals LM Nom (Urine sed) NONE SEEN Normal NONE SEEN [facility] Comment on above: Performed By: #### P TT, PT #### [facility] [address] [place] [address] Dr. Celi Guerin Epithelial cells LM Ql (Urine sed) FEW Abnormal NONE SEEN /RARE The [facility] Comment on above: Performed By: #### P TT, PT #### [facility] [address] [place] [address] Dr. Celi Guerin MUCOUS SMALL Abnormal NONE SEEN [facility] Comment on above: Performed By: #### P TT, PT #### [facility] [address] [place] [address] Dr. Celi Guerin RBC 5-10 Abnormal 0-2 [facility] Comment on above: Performed By: #### P TT, PT #### [facility] [address] [place] [address] Dr. Celi Guerin WBC 0-2 Abnormal NONE SEEN [facility] Comment on above: Performed By: #### P TT, PT #### [facility] [address] [place] [address] Dr. Celi Guerin CBC AUTO DIFFon 10-09-2021 BASO # 0.0 103/ul Normal 0.0-0.1 [facility] Comment on above: Performed By: #### ARTEMIO GOMEZ #### [facility] [address] [place] [address] Dr. Celi Guerin Basophils/100 WBC (Bld) 0.1 % Critically low 0.2-2.0 [facility] Comment on above: Performed By: #### ARTEMIO GOMEZ #### [facility] [address] [place] [address] Dr. Celi Guerin EO # 0.0 103/ul Normal 0.0-0.7 [facility] Comment on above: Performed By: #### ARTEMIO GOMEZ #### [facility] [address] [place] [address] Dr. Celi Guerin Eosinophils/100 WBC (Bld) 0.1 % Critically low 0.9-7.0 [facility] Comment on above: Performed By: #### ARTEMIO GOMEZ #### [facility] [address] [place] [address] Dr. Celi Guerin Erythrocyte distribution width (RBC) [Ratio] 18.5 % Critically high 11.0-15.0 [facility] Comment on above: Performed By: #### ARTEMIO GOMEZ #### [facility] [address] [address] [address] Celi Guerin Hematocrit (Bld) [Volume fraction] 36.0 % Normal 36.0-48.0 [facility] Comment on above: Performed By: #### E LUCEROR, UMICRO #### [facility] [address] [place] [address] Dr. Celi Guerin Hemoglobin (Bld) [Mass/Vol] 11.3 g/dL Critically low 12.0-16.0 [facility] Comment on above: Performed By: #### E RUR, UMICRO #### [facility] [address] [place] [address] Dr. Celi Guerin IG # 0.06 10e3/ul Critically high 0.00-0.03 [facility] Comment on above: Performed By: #### E RURuma, UMICRO #### [facility] [address] [place] [address] Dr. Celi Guerin IG % 0.8 % Critically high 0.0-0.5 The [facility] Comment on above: Performed By: #### Sergey ESTRELLA, UMICRO #### [facility] [address] [place] [address] Dr. Celi Guerin LYMPH # 1.5 103/ul Normal 1.2-3.8 The [facility] Comment on above: Performed By: #### Sergey ESTRELLA, UMICRO #### [facility] [address] [place] [address] Dr. Celi Guerin Lymphocytes/100 WBC (Bld) 19.3 % Critically low 20.5-60.0 The [facility] Comment on above: Performed By: #### E RUR, UMICRO #### [facility] [address] [place] [address] Dr. Celi Guerin MANUAL DIFF REQ NO Normal [facility] Comment on above: Performed By: #### E RUR, UMICRO #### [facility] [address] [place] [address] Dr. Celi Guerin MCH (RBC) [Entitic mass] 25.7 pg Critically low 26.7-34.0 [facility] Comment on above: Performed By: #### YURI GOMEZRO #### [facility] [address] [place] [address] Dr. Celi Guerin MCHC (RBC) [Mass/Vol] 31.4 g/dL Normal 29.9-35.2 [facility] Comment on above: Performed By: #### YURI GOMEZRO #### [facility] [address] [place] [address] Dr. Celi Guerin MCV (RBC) [Entitic vol] 81.8 fL Normal 81.0-99.0 [facility] Comment on above: Performed By: #### YURI GOMEZRO #### [facility] [address] [place] [address] Dr. Celi Guerin MONO # 0.6 103/ul Normal 0.3-0.8 [facility] Comment on above: Performed By: #### YURI GOMEZRO #### [facility] [address] [place] [address] Dr. Celi Guerin Monocytes/100 WBC (Bld) 7.9 % Normal 1.7-12.0 [facility] Comment on above: Performed By: #### YURI GOMEZRO #### [facility] [address] [place] [address] Dr. Celi Guerin NEUT # 5.6 103/ul Normal 1.4-6.5 [facility] Comment on above: Performed By: #### YURI GOMEZRO #### [facility] [address] [place] [address] Dr. Celi Guerin Neutrophils/100 WBC (Bld) 71.8 % Normal 43.0-75.0 [facility] Comment on above: Performed By: #### YURI GOMEZRO #### [facility] [address] [place] [address] Dr. Celi Guerin Platelet mean volume (Bld) [Entitic vol] 10.3 fL Normal 9.5-13.5 [facility] Comment on above: Performed By: #### YURI GOMEZRO #### [facility] [address] [address] [address] Celi Guerin PLT 78 103/ul Critically low 150-450 [facility] Comment on above: Performed By: #### ARTEMIO GOMEZ #### [facility] [address] [address] [address] Celi Guerin RBC 4.40 106/ul Normal 4.20-5.40 [facility] Comment on above: Performed By: #### ARTEMIO GOMEZ #### [facility] [address] [address] [address] Celi Guerin WBC 7.8 103/ul Normal 4.0-11.0 [facility] Comment on above: Performed By: #### ARTEMIO GOMEZ #### [facility] [address] [address] [address] Celi Guerin Covid-19 PCR ([facility])on 09-26 SARS-CoV-2 (COVID-19) RNA LIBERTAD+probe Ql (Unsp spec) Not detected Normal NOT DETECTED The [facility] Comment on above: Result Comment: When diagnostic [...] for this test is supported by the [employer]'s declaration that [...] Performed By: #### P TT, PT #### [facility] [address] [address] [address] Celi Guerin ETHANOL (BLD ALC)on 04-14-20 22 ALC NOTE NOTE: 80 mg/dl is th e legal limit for a blood alcohol level Normal [facility] Comment on above: Performed By: #### P TT, PT #### [facility] [address] [place] [address] Dr. Celi Guerin Ethanol [Mass/Vol] 26 mg/dL Normal [facility] Comment on above: Performed By: #### P TT, PT #### [facility] [address] [place] [address] Dr. Celi Guerin LIPASEon 10-09-2021 Lipase [Catalytic activity/Vol] U/L Critically high 23.0-300.0 [facility] Comment on above: Performed By: #### P TT, PT #### [facility] [address] [place] [address] Dr. Celi Guerin PROF 14(COMP METB)on 022 Albumin [Mass/Vol] 4.1 g/dL Normal 3.4-5.0 [facility] Comment on above: Performed By: #### P TT, PT #### [facility] [address] [place] [address] Dr. Celi Guerin Albumin/Globulin [Mass ratio] 1.1 {ratio} Normal [facility] Comment on above: Performed By: #### P TT, PT #### [facility] [address] [place] [address] Dr. Celi Guerin ALP [Catalytic activity/Vol] 100 U/L Normal 46-116 [facility] Comment on above: Performed By: #### P TT, PT #### [facility] [address] [place] [address] Dr. Celi Guerin ALT [Catalytic activity/Vol] 44 U/L Normal 14-59 [facility] Comment on above: Performed By: #### P TT, PT #### [facility] [address] [place] [address] Dr. Celi Guerin Anion gap [Moles/Vol] 18.9 mmol/L Normal [facility] Comment on above: Performed By: #### P TT, PT #### [facility] [address] [address] [address] Celi Guerin AST [Catalytic activity/Vol] 84 U/L Critically high 15-37 [facility] Comment on above: Performed By: #### P TT, PT #### [facility] [address] [place] [address] Dr. Ceil Guerin Bilirubin [Mass/Vol] 0.6 mg/dL Normal 0.2-1.3 [facility] Comment on above: Performed By: #### P TT, PT #### [facility] [address] [place] [address] Dr. Celi Guerin Calcium [Mass/Vol] 8.8 mg/dL Normal 8.5-10.1 [facility] Comment on above: Performed By: #### P TT, PT #### [facility] [address] [place] [address] Dr. Celi Guerin Chloride [Moles/Vol] 100 mmol/L Normal 98-107 [facility] Comment on above: Performed By: #### P TT, PT #### [facility] [address] [place] [address] Dr. Celi Guerin CO2 [Moles/Vol] 20.8 mmol/L Critically low 22.0-30.0 [facility] Comment on above: Performed By: #### P TT, PT #### [facility] [address] [place] [address] Dr. Celi Guerin Creatinine [Mass/Vol] 0.56 mg/dL Normal 0.52-1.04 [facility] Comment on above: Performed By: #### P TT, PT #### [facility] [address] [place] [address] Dr. Celi Guerin EGFR-AF PALAUAN >60 Normal >=60 [facility] Comment on above: Performed By: #### P TT, PT #### [facility] [address] [place] [address] Dr. Celi Guerin EGFR-NON AF PALAUAN >60 Normal >=60 [facility] Comment on above: Performed By: #### P TT, PT #### [facility] [address] [place] [address] Dr. Ceil Guerin Globulin (S) [Mass/Vol] 3.8 g/dL Normal [facility] Comment on above: Performed By: #### P TT, PT #### [facility] [address] [place] [address] Dr. Celi Guerin Glucose [Mass/Vol] 130 mg/dL Critically high 74-106 [facility] Comment on above: Performed By: #### P TT, PT #### [facility] [address] [place] [address] Dr. Celi Guerin Potassium [Moles/Vol] 3.7 mmol/L Normal 3.4-5.0 [facility] Comment on above: Performed By: #### P TT, PT #### [facility] [address] [place] [address] Dr. Celi Guerin Protein [Mass/Vol] 7.9 g/dL Normal 6.1-8.2 [facility] Comment on above: Performed By: #### P TT, PT #### [facility] [address] [place] [address] Dr. Celi Guerin Sodium [Moles/Vol] 136 mmol/L Critically low 137-145 [facility] Comment on above: Performed By: #### P TT, PT #### [facility] [address] [place] [address] Dr. Celi Guerin Urea nitrogen [Mass/Vol] 9.0 mg/dL Normal 7.0-18.0 [facility] Comment on above: Performed By: #### P TT, PT #### [facility] [address] [place] [address] Dr. Celi Guerin Urea nitrogen/Creatinine [Mass ratio] 16.1 mg/mg Normal [facility] Comment on above: Performed By: #### P TT, PT #### [facility] [address] [place] [address] Dr. Celi Guerin CULTURE URINEon 09-02-2021 CULTURE [...] Trimethoprim/Sulfamet hoxazole <=20 S F Normal [facility] Comment on above: Performed By: #### P TT, PT #### [facility] [address] [place] [address] Dr. Celi Guerin AMYLASEon 08-30-2021 Amylase [Catalytic activity/Vol] 538 U/L Critically high 31-110 [facility] Comment on above: Result Comment: TEST REPEATED CRITICAL VALUE VERIFIED Performed By: #### P TT, PT #### [facility] [address] [place] [address] Dr. Celi Guerin CBC AUTO DIFFon 08-30-2021 BASO # 0.0 103/ul Normal 0.0-0.1 [facility] Comment on above: Performed By: #### ARTEMIO GOMEZ #### [facility] [address] [place] [address] Dr. Celi Guerin Basophils/100 WBC (Bld) 0.2 % Normal 0.2-2.0 [facility] Comment on above: Performed By: #### ARTEMIO GOMEZ #### [facility] [address] [place] [address] Dr. Celi Guerin EO # 0.0 103/ul Normal 0.0-0.7 [facility] Comment on above: Performed By: #### ARTEMIO GOMEZ #### [facility] [address] [place] [address] Dr. Celi Guerin Eosinophils/100 WBC (Bld) 0.2 % Critically low 0.9-7.0 [facility] Comment on above: Performed By: #### ARTEMIO GOMEZ #### [facility] [address] [place] [address] Dr. Celi Guerin Erythrocyte distribution width (RBC) [Ratio] 17.0 % Critically high 11.0-15.0 [facility] Comment on above: Performed By: #### Sergey ESTRELLA UMICRO #### [facility] [address] [place] [address] Dr. Celi Guerin Hematocrit (Bld) [Volume fraction] 34.2 % Critically low 36.0-48.0 [facility] Comment on above: Performed By: #### Sergey ESTRELLA, UMICRO #### [facility] [address] [place] [address] Dr. Celi Guerin Hemoglobin (Bld) [Mass/Vol] 10.6 g/dL Critically low 12.0-16.0 [facility] Comment on above: Performed By: #### Sergey ESTRELLA UMICRO #### [facility] [address] [place] [address] Dr. Celi Guerin IG # 0.03 10e3/ul Normal 0.00-0.03 [facility] Comment on above: Performed By: #### Sergey ESTRELLA UMICRO #### [facility] [address] [place] [address] Dr. Celi Guerin IG % 0.5 % Normal 0.0-0.5 [facility] Comment on above: Performed By: #### Sergey ESTRELLA, UMICRO #### [facility] [address] [place] [address] Dr. Celi Guerin LYMPH # 0.8 103/ul Critically low 1.2-3.8 [facility] Comment on above: Performed By: #### Sergey ESTRELLA, UMICRO #### [facility] [address] [place] [address] Dr. Celi Guerin Lymphocytes/100 WBC (Bld) 14.4 % Critically low 20.5-60.0 [facility] Comment on above: Performed By: #### Sergey ESTRELLA, UMICRO #### [facility] [address] [place] [address] Dr. Celi Guerin MANUAL DIFF REQ NO Normal [facility] Comment on above: Performed By: #### Sergey ESTRELLA UMICRO #### [facility] [address] [place] [address] Dr. Celi Guerin MCH (RBC) [Entitic mass] 26.9 pg Normal 26.7-34.0 [facility] Comment on above: Performed By: #### Sergey ESTRELLA UMICRO #### [facility] [address] [place] [address] Dr. Celi Guerin MCHC (RBC) [Mass/Vol] 31.0 g/dL Normal 29.9-35.2 [facility] Comment on above: Performed By: #### Sergey ESTRELLA UMICRO #### [facility] [address] [place] [address] Dr. Celi Guerin MCV (RBC) [Entitic vol] 86.8 fL Normal 81.0-99.0 [facility] Comment on above: Performed By: #### Sergey ESTRELLA UMICRO #### [facility] [address] [place] [address] Dr. Celi Guerin MONO # 0.3 103/ul Normal 0.3-0.8 [facility] Comment on above: Performed By: #### FLOR GOMEZICRO #### [facility] [address] [place] [address] Dr. Celi Guerin Monocytes/100 WBC (Bld) 4.9 % Normal 1.7-12.0 [facility] Comment on above: Performed By: #### FLOR GOMEZICRO #### [facility] [address] [place] [address] Dr. Celi Guerin NEUT # 4.6 103/ul Normal 1.4-6.5 [facility] Comment on above: Performed By: #### Sergey ESTRELLA UMICRO #### [facility] [address] [place] [address] Dr. Celi Guerin Neutrophils/100 WBC (Bld) 79.8 % Critically high 43.0-75.0 [facility] Comment on above: Performed By: #### Sergey ESTRELLA UMICRO #### [facility] [address] [place], [place] [address] Dr. Celi Guerin Platelet mean volume (Bld) [Entitic vol] 11.7 fL Normal 9.5-13.5 [facility] Comment on above: Performed By: #### E RUR, UMICRO #### [facility] [address] [place], [place] [address] Dr. Celi Guerin PLT 68 103/ul Critically low 150-450 [facility] Comment on above: Performed By: #### E RUR, UMICRO #### [facility] [address] [place], [place] [address] Dr. Celi Guerin RBC 3.94 106/ul Critically low 4.20-5.40 [facility] Comment on above: Performed By: #### E LUCEROR, UMICRO #### [facility] [address] [place], [place] [address] Dr. Celi Guerin WBC 5.8 103/ul Normal 4.0-11.0 [facility] Comment on above: Performed By: #### Sergey BARKERR, UMICRO #### [facility] [address] [place], [place] [address] ABD/PELVIS WO CONon [...] BOONE LEA Date: 2021-08-30 18:43 Normal [facility] URINE PROFILEon 2 Bilirubin Ql (U) SMALL Abnormal NEGATIVE The [facility] Comment on above: Performed By: #### ARTEMIO GOMEZ #### [facility] [address] [address] [address] Celi Guerin Clarity (U) CLEAR Normal CLEAR [facility] Comment on above: Performed By: #### ARTEMIO GOMEZ #### [facility] [address], [place] [address] Dr. Clei Guerin Color (U) YELLOW Normal YELLOW The [facility] Comment on above: Performed By: #### ARTEMIO GOMEZ #### [facility] [address] [place] [address] Dr. Celi LUCAS A micrscopic examination will be performed if indicated. Normal [facility] Comment on above: Performed By: #### YURI GOMEZRO #### [facility] [address] [place] [address] Dr. Celi Guerin Glucose Ql (U) Negative Normal NEGATIVE [facility] Comment on above: Performed By: #### YURI GOMEZRO #### [facility] [address] [place] [address] Dr. Celi Guerin Hemoglobin Ql (U) Negative Normal NEGATIVE [facility] Comment on above: Performed By: #### YURI GOMEZRO #### [facility] [address] [place] [address] Dr. Celi Guerin Ketones Ql (U) >=80 Abnormal NEGATIVE [facility] Comment on above: Performed By: #### YURI GOMEZRO #### [facility] [address] [place] [address] Dr. Celi Guerin LEUKOCYTES MODERATE Abnormal NEGATIVE [facility] Comment on above: Performed By: #### YURI GOMEZRO #### [facility] [address] [place] [address] Dr. Celi Guerin Nitrite Ql (U) Positive Abnormal NEGATIVE [facility] Comment on above: Performed By: #### YURI GOMEZRO #### [facility] [address] [place] [address] Dr. Celi Guerin pH (U) 6.5 [pH] Normal 5-9 [facility] Comment on above: Performed By: #### YURI GOMEZRO #### [facility] [address] [place] [address] Dr. Celi Guerin Protein (U) [Mass/Vol] 100 mg/dL Abnormal NEGATIVE/ TRACE [facility] Comment on above: Performed By: #### YURI GOMEZRO #### [facility] [address] [place] [address] Dr. Celi Guerin SPEC GRAVITY 1.020 Normal 1.005-<=1.025 [facility] Comment on above: Performed By: #### E ARTEMIO ESTRELLA #### [facility] [address] [place] [address] Dr. Celi Guerin UR MICRO IND INDICATED Normal [facility] Comment on above: Performed By: #### E YURI SETRELLARO #### [facility] [address] [place] [address] Dr. Celi Guerin Urobilinogen Qn (U) 2.0 {Irlanda'U}/dL Abnormal 0.2 - 1. 0 [facility] Comment on above: Performed By: #### ARTEMIO GOMEZ #### [facility] [address] [place] [address] Dr. Celi Guerin ETHANOL (BLD ALC)on 08-31-19 22 ALC NOTE NOTE: 80 mg/dl is th e legal limit for a blood alcohol level Normal [facility] Comment on above: Performed By: #### E TH #### [facility] [address] [place] [address] Dr. Celi Guerin Ethanol [Mass/Vol] mg/dL Normal [facility] Comment on above: Performed By: #### E TH #### [facility] [address] [place] [address] Dr. Celi Guerin LIPASEon 08-30-2021 Lipase [Catalytic activity/Vol] U/L Critically high 23.0-300.0 [facility] Comment on above: Result Comment: TEST REPEATED CRITICAL VALUE VERIFIED Performed By: #### P TT, PT #### [facility] [address] [place] [address] Dr. Celi Guerin PROF 14(COMP METB)on 022 Albumin [Mass/Vol] 3.9 g/dL Normal 3.5-5.0 [facility] Comment on above: Performed By: #### P TT, PT #### [facility] [address] [place] [address] Dr. Celi Guerin Albumin/Globulin [Mass ratio] 1.1 {ratio} Normal [facility] Comment on above: Performed By: #### P TT, PT #### [facility] [address] [address] [address] Celi Guerin ALP [Catalytic activity/Vol] 91 U/L Normal 38-126 [facility] Comment on above: Performed By: #### P TT, PT #### [facility] [address] [address] [address] Celi Guerin ALT [Catalytic activity/Vol] 52 U/L Normal 9-52 [facility] Comment on above: Performed By: #### P TT, PT #### [facility] [address] [address] [address] Celi Guerin Anion gap [Moles/Vol] 16.7 mmol/L Normal [facility] Comment on above: Performed By: #### P TT, PT #### [facility] [address] [place] [address] Dr. Celi Guerin AST [Catalytic activity/Vol] 59 U/L Critically high 14-36 [facility] Comment on above: Performed By: #### P TT, PT #### [facility] [address] [address] [address] Celi Guerin Bilirubin [Mass/Vol] 1.0 mg/dL Normal 0.2-1.3 [facility] Comment on above: Performed By: #### P TT, PT #### [facility] [address] [address] [address] Celi Guerin Calcium [Mass/Vol] 9.0 mg/dL Normal 8.4-10.2 [facility] Comment on above: Performed By: #### P TT, PT #### [facility] [address] [address] [address] Celi Guerin Chloride [Moles/Vol] 95 mmol/L Critically low 98-107 [facility] Comment on above: Performed By: #### P TT, PT #### [facility] [address] [address] [address] Celi Guerin CO2 [Moles/Vol] 22.8 mmol/L Normal 22.0-30.0 [facility] Comment on above: Performed By: #### P TT, PT #### [facility] [address] [address] [address] Celi Guerin Creatinine [Mass/Vol] 0.57 mg/dL Normal 0.52-1.04 [facility] Comment on above: Performed By: #### P TT, PT #### [facility] [address] [address] [address] Celi Guerin EGFR-AF PALAUAN >60 Normal >=60 [facility] Comment on above: Performed By: #### P TT, PT #### [facility] [address] [address] [address] Celi Guerin EGFR-NON AF PALAUAN >60 Normal >=60 [facility] Comment on above: Performed By: #### P TT, PT #### [facility] [address] [place] [address] Dr. Celi Guerin Globulin (S) [Mass/Vol] 3.5 g/dL Normal [facility] Comment on above: Performed By: #### P TT, PT #### [facility] [address] [address] [address] Celi Guerin Glucose [Mass/Vol] 82 mg/dL Normal 74-106 [facility] Comment on above: Performed By: #### P TT, PT #### [facility] [address] [place] [address] Dr. Celi Guerin Potassium [Moles/Vol] 3.5 mmol/L Normal 3.4-5.0 [facility] Comment on above: Performed By: #### P TT, PT #### [facility] [address] [address] [address] Celi Guerin Protein [Mass/Vol] 7.4 g/dL Normal 6.1-8.2 [facility] Comment on above: Performed By: #### P TT, PT #### [facility] [address] [place] [address] Dr. Celi Guerin Sodium [Moles/Vol] 131 mmol/L Critically low 137-145 [facility] Comment on above: Performed By: #### P TT, PT #### [facility] [address] [place] [address] Dr. Celi Guerin Urea nitrogen [Mass/Vol] 8.0 mg/dL Normal 7.0-17.0 [facility] Comment on above: Performed By: #### P TT, PT #### [facility] [address] [place] [address] Dr. Celi Guerin Urea nitrogen/Creatinine [Mass ratio] 14.0 mg/mg Normal [facility] Comment on above: Performed By: #### P TT, PT #### [facility] [address] [place] [address] Dr. Celi Guerin URINE MICROSCOPIC ONLYon BACTERIA MODERATE Abnormal NONE SEEN The [facility] Comment on above: Performed By: #### E SAMEER, UMICRO #### [facility] [address] [place] [address] Dr. Celi Guerin Bacteria identified Cx Nom (U) INDICATED Normal [facility] Comment on above: Performed By: #### E SAMEER UMICRO #### [facility] [address] [place] [address] Dr. Celi Guerin CAST SEEN Abnormal NONE SEEN [facility] Comment on above: Performed By: #### E SAMEER UMICRO #### [facility] [address] [place] [address] Dr. Celi Guerin Crystals LM Nom (Urine sed) NONE SEEN Normal NONE SEEN [facility] Comment on above: Performed By: #### E SAMEER UMICRO #### [facility] [address] [place] [address] Dr. Celi Guerin Epithelial cells LM Ql (Urine sed) FEW Abnormal NONE SEEN /RARE The [facility] Comment on above: Performed By: #### E SAMEER UMICRO #### [facility] [address] [place] [address] Dr. Celi Guerin HYALINE CAST RARE Normal [facility] Comment on above: Performed By: #### Sergey ESTRELLA, UMICRO #### [facility] [address] [place] [address] Dr. Celi Guerin MUCOUS NONE SEEN Normal NONE SEEN [facility] Comment on above: Performed By: #### YURI GOMEZRO #### [facility] [address] [place] [address] Dr. Celi Guerin RBC 0-2 Normal 0-2 [facility] Comment on above: Performed By: #### YURI GOMEZRO #### [facility] [address] [place] [address] Dr. Celi Guerin WBC 10-20 Abnormal NONE SEEN [facility] Comment on above: Performed By: #### YURI GOMEZRO #### [facility] [address] [place] [address] Dr. Celi Guerin AMYLASEon 07-04-2021 Amylase [Catalytic activity/Vol] 113 U/L Critically high 31-110 [facility] Comment on above: Performed By: #### YURI GOMEZRO #### [facility] [address] [place] [address] Dr. Celi Guerin CBC AUTO DIFFon 07-04-2021 BASO # 0.0 103/ul Normal 0.0-0.1 [facility] Comment on above: Performed By: #### C BC #### [facility] [address] [place] [address] Dr. Celi Guerin Basophils/100 WBC (Bld) 0.3 % Normal 0.2-2.0 [facility] Comment on above: Performed By: #### C BC #### [facility] [address] [place] [address] Dr. Celi Guerin EO # 0.0 103/ul Normal 0.0-0.7 [facility] Comment on above: Performed By: #### C BC #### [facility] [address] [place] [address] Dr. Celi Guerin Eosinophils/100 WBC (Bld) 0.0 % Critically low 0.9-7.0 [facility] Comment on above: Performed By: #### C BC #### [facility] [address] [place] [address] Dr. Celi Guerin Erythrocyte distribution width (RBC) [Ratio] 20.1 % Critically high 11.0-15.0 [facility] Comment on above: Performed By: #### C BC #### [facility] [address] [place] [address] Dr. Celi Guerin Hematocrit (Bld) [Volume fraction] 36.8 % Normal 36.0-48.0 [facility] Comment on above: Performed By: #### C BC #### [facility] [address] [place] [address] Dr. Celi Guerin Hemoglobin (Bld) [Mass/Vol] 12.3 g/dL Normal 12.0-16.0 [facility] Comment on above: Performed By: #### C BC #### [facility] [address] [place] [address] Dr. Celi Guerin IG # 0.04 10e3/ul Critically high 0.00-0.03 [facility] Comment on above: Performed By: #### C BC #### [facility] [address] [place] [address] Dr. Celi Guerin IG % 0.6 % Critically high 0.0-0.5 [facility] Comment on above: Performed By: #### C BC #### [facility] [address] [place] [address] Dr. Celi Guerin LYMPH # 0.9 103/ul Critically low 1.2-3.8 [facility] Comment on above: Performed By: #### C BC #### [facility] [address] [place] [address] Dr. Celi Guerin Lymphocytes/100 WBC (Bld) 12.7 % Critically low 20.5-60.0 [facility] Comment on above: Performed By: #### C BC #### [facility] [address] [place] [address] Dr. Celi Guerin MANUAL DIFF REQ NO Normal [facility] Comment on above: Performed By: #### C BC #### [facility] [address] [place] [address] Dr. Celi Guerin MCH (RBC) [Entitic mass] 29.5 pg Normal 26.7-34.0 [facility] Comment on above: Performed By: #### C BC #### [facility] [address] [place] [address] Dr. Celi Guerin MCHC (RBC) [Mass/Vol] 33.4 g/dL Normal 29.9-35.2 [facility] Comment on above: Performed By: #### C BC #### [facility] [address] [place] [address] Dr. Celi Guerin MCV (RBC) [Entitic vol] 88.2 fL Normal 81.0-99.0 [facility] Comment on above: Performed By: #### C BC #### [facility] [address] [place] [address] Dr. Celi Guerin MONO # 0.5 103/ul Normal 0.3-0.8 [facility] Comment on above: Performed By: #### C BC #### [facility] [address] [place] [address] Dr. Celi Guerin Monocytes/100 WBC (Bld) 6.9 % Normal 1.7-12.0 [facility] Comment on above: Performed By: #### C BC #### [facility] [address] [place] [address] Dr. Celi Guerin NEUT # 5.5 103/ul Normal 1.4-6.5 [facility] Comment on above: Performed By: #### C BC #### [facility] [address] [place] [address] Dr. Celi Guerin Neutrophils/100 WBC (Bld) 79.5 % Critically high 43.0-75.0 [facility] Comment on above: Performed By: #### C BC #### [facility] [address] [place] [address] Dr. Celi Guerin Platelet mean volume (Bld) [Entitic vol] 10.0 fL Normal 9.5-13.5 [facility] Comment on above: Performed By: #### C BC #### [facility] [address] [place] [address] Dr. Celi Guerin PLT 95 103/ul Critically low 150-450 [facility] Comment on above: Performed By: #### C BC #### [facility] [address], [place] [address] Dr. Celi Guerin RBC 4.17 106/ul Critically low 4.20-5.40 [facility] Comment on above: Performed By: #### C BC #### [facility] [address], [place] [address] Dr. Celi Guerin WBC 7.0 103/ul Normal 4.0-11.0 [facility] Comment on above: Performed By: #### C BC #### [facility] [address], [place] [address] ABD/PELV W CONon [...] OSMIN MCGEE Date: 2021-07-04 16:56 Normal [facility] ETHANOL (BLD ALC)on 07-04-19 22 ALC NOTE NOTE: 80 mg/dl is [facility] legal limit for a blood alcohol level Normal [facility] Comment on above: Performed By: #### ARTEMIO GOMEZ #### [facility] [address] [place] [address] Dr. Celi Guerin Ethanol [Mass/Vol] 35 mg/dL Normal [facility] Comment on above: Performed By: #### YURI GOMEZRO #### [facility] [address] [place] [address] Dr. Celi Guerin LIPASEon 07-04-2021 Lipase [Catalytic activity/Vol] 830.0 U/L Critically high 23.0-300.0 [facility] Comment on above: Performed By: #### ARTEMIO GOMEZ #### [facility] [address] [place] [address] Dr. Celi Guerin PREG HCG QUALon 07-04-2021 , QUAL Negative Normal NEGATIVE [facility] Comment on above: Performed By: #### P REG #### [facility] [address] [place] [address] Dr. Celi Guerin PROF 14(COMP METB)on 022 Albumin [Mass/Vol] 3.2 g/dL Critically low 3.5-5.0 [facility] Comment on above: Performed By: #### YURI GOMEZRO #### [facility] [address] [place] [address] Dr. Celi Guerin Albumin/Globulin [Mass ratio] 0.7 {ratio} Normal [facility] Comment on above: Performed By: #### YURI GOMEZRO #### [facility] [address] [place] [address] Dr. Celi Guerin ALP [Catalytic activity/Vol] 126 U/L Normal 38-126 [facility] Comment on above: Performed By: #### YURI GOMEZRO #### [facility] [address] [place] [address] Dr. Celi Guerin ALT [Catalytic activity/Vol] 60 U/L Critically high 9-52 [facility] Comment on above: Performed By: #### YURI GOMEZRO #### [facility] [address] [place] [address] Dr. Celi Guerin Anion gap [Moles/Vol] 17.7 mmol/L Normal [facility] Comment on above: Performed By: #### YURI GOMEZRO #### [facility] [address] [place] [address] Dr. Celi Guerin AST [Catalytic activity/Vol] 112 U/L Critically high 14-36 [facility] Comment on above: Performed By: #### YURI GOMEZRO #### [facility] [address] [place] [address] Dr. Celi Guerin Bilirubin [Mass/Vol] 0.7 mg/dL Normal 0.2-1.3 [facility] Comment on above: Performed By: #### YURI GOMEZRO #### [facility] [address] [place] [address] Dr. Celi Guerin Calcium [Mass/Vol] 8.5 mg/dL Normal 8.4-10.2 [facility] Comment on above: Performed By: #### Sergey ESTRELLA UMICRO #### [facility] [address] [place] [address] Dr. Celi Guerin Chloride [Moles/Vol] 98 mmol/L Normal 98-107 [facility] Comment on above: Performed By: #### Sergey ESTRELLA UMICRO #### [facility] [address] [place] [address] Dr. Celi Guerin CO2 [Moles/Vol] 23.5 mmol/L Normal 22.0-30.0 [facility] Comment on above: Performed By: #### Sergey ESTRELLA UMICRO #### [facility] [address] [place] [address] Dr. Celi Guerin Creatinine [Mass/Vol] 0.57 mg/dL Normal 0.52-1.04 [facility] Comment on above: Performed By: #### E LUCEROR, UMICRO #### [facility] [address] [address] [address] Celi Guerin EGFR-AF PALAUAN >60 Normal >=60 [facility] Comment on above: Performed By: #### E LUCEROR, UMICRO #### [facility] [address] [address] [address] Celi Guerin EGFR-NON AF PALAUAN >60 Normal >=60 [facility] Comment on above: Performed By: #### E RUR, UMICRO #### [facility] [address] [address] [address] Celi Guerin Globulin (S) [Mass/Vol] 4.3 g/dL Normal [facility] Comment on above: Performed By: #### E SAMEER, UMICRO #### [facility] [address] [place] [address] Dr. Celi Guerin Glucose [Mass/Vol] 104 mg/dL Normal 74-106 [facility] Comment on above: Performed By: #### E SAMEER, UMICRO #### [facility] [address] [address] [address] Celi Guerin Potassium [Moles/Vol] 3.2 mmol/L Critically low 3.4-5.0 [facility] Comment on above: Performed By: #### Sergey ESTRELLA, UMICRO #### [facility] [address] [address] [address] Celi Guerin Protein [Mass/Vol] 7.5 g/dL Normal 6.1-8.2 [facility] Comment on above: Performed By: #### Sergey ESTRELLA, UMICRO #### [facility] [address] [address] [address] Celi Guerin Sodium [Moles/Vol] 136 mmol/L Critically low 137-145 [facility] Comment on above: Performed By: #### E LUCEROR, UMICRO #### [facility] [address] [address] [address] Celi Guerin Urea nitrogen [Mass/Vol] 5.0 mg/dL Critically low 7.0-17.0 [facility] Comment on above: Performed By: #### E YURI ESTRELLARO #### [facility] [address] [place] [address] Dr. Celi Guerin Urea nitrogen/Creatinine [Mass ratio] 8.8 mg/mg Normal [facility] Comment on above: Performed By: #### E YURI ESTRELLARO #### [facility] [address] [place] [address] Dr. Celi Guerin PROTIMEon 07-04-2021 INR Coag (PPP) [Relative time] 1.03 {INR} Normal [facility] Comment on above: Performed By: #### P TT, PT #### [facility] [address] [place] [address] Dr. Celi Guerin INR GUIDELINES SEE BELOW Normal [facility] Comment on above: Result Comment: KIRILL RED INR: 2.0 - 3.0 CONDITIONS NOT LISTED BELOW 2.5 - 3.5 FOR PROSTHETIC HEART VALVE REPLACEMENT 2.5 - 3.5 RECURRENT THROMBOSIS Performed By: #### P TT, PT #### [facility] [address] [place] [address] Dr. Celi Guerin PT Coag (PPP) [Time] 11.1 s Normal 9.0-11.6 [facility] Comment on above: Performed By: #### P TT, PT #### [facility] [address] [place] [address] Dr. Celi Guerin PTTon 07-04-2021 aPTT Coag (Bld) [Time] 27.6 s Normal 22.3-36.2 [facility] Comment on above: Performed By: #### P TT, PT #### [facility] [address] [place] [address] Dr. Celi Guerin Covid-19 PCR [facility]on SARS-CoV-2 (COVID-19) RNA LIBERTAD+probe Ql (Unsp spec) Not detected Normal NOT DETECTED [facility] Comment on above: Result Comment: When diagnostic [...] for this test is supported by the Hand Rounder of Health and Human Service's declaration that [...] no longer be used). Performed By: #### ARETMIO GOMEZ #### [facility] [address] [place] [address] Dr. Celi Guerin COVID-19/INFLUENZA A,B [facility] 05-21-2020 COVID-19/INFLUENZA A,B MOLECULAR SARS-COV-2 (YUNG): Detected INFLUENZA A (YUNG): Not Detected INFLUENZA B (YUNG): Not Detected Normal Not Detected [facility] Comment on above: Order Comment: This test [...] at the following links: For Healthcare Providers: https://www.fda.gov/media/690708/download For Patients: https://www.fda.gov/media/226601/download Performed By: #### L [id number] #### [facility] [address] [address] Faye Enriquez M.D. [id number] COVID-19/Influenza A,B [facility] 05-21-2020 Influenza A Not Detected Not Detected [facility] Influenza B Not Detected Not Detected [facility] Interpretation and review of laboratory results Abnormal [facility] SARS-CoV-2 Detected Abnormal Not Detected [facility] This test was performed under the FDA's [...] at the following links: For Healthcare Providers: https://www.[facility].gov/m edia/960800/download For Patients: https://www.fda.gov/m edia/746549/download [facility] INCISION AND DRAINAGEon 09-26 Maria Elena [...] the procedure well with no immediate complications [facility] Alcohol, Medicalon 0 Ethanol [Mass/Vol] 342.00 mg/dL High <10.00 [facility] Interpretation and review of laboratory results Abnormal [facility] BMPon 08-29-2019 Anion gap [Moles/Vol] 11 mmol/L 10 - 20 mmol/L [facility] Calcium [Mass/Vol] 9.0 mg/dL 8.4 - 10. 2 mg/dL [facility] Chloride [Moles/Vol] 111 mmol/L High 98 - 108 mmol/L [facility] Creatinine [Mass/Vol] 0.65 mg/dL 0.40 - 1.10 [facility] GFR/1.73 sq M predicted among non-blacks MDRD (S/P/Bld) [Vol rate/Area] The eGFR should be used for monitoring renal function only and not for medication dosing. [facility] GFR/1.73 sq M.predicted CKD-EPI (S/P/Bld) [Vol rate/Area] 118 >=60 mL/min/1.73 m2 [facility] Glucose [Mass/Vol] 86 mg/dL 65 - 99 mg/dL [facility] HCO3 [Moles/Vol] 24 mmol/L 21 - 32 mmol/L [facility] Interpretation and review of laboratory results Abnormal [facility] Potassium [Moles/Vol] 4.1 mmol/L 3.5 - 5.1 mmol/L [facility] Sodium [Moles/Vol] 142 mmol/L 135 - 145 mmol/L [facility] Urea nitrogen [Mass/Vol] 9 mg/dL 8 - 25 mg/dL [facility] Urea nitrogen/Creatinine [Mass ratio] 13.8 mg/mg [facility] CBC WITH AUTO DIFFERENTIALon 08-29-2019 Basophils (Bld) [#/Vol] 0.05 10*3/uL [facility] Basophils/100 WBC (Bld) 0.4 % [facility] Eosinophils (Bld) [#/Vol] 0.08 10*3/uL [facility] Eosinophils/100 WBC (Bld) 0.6 % [facility] Erythrocyte distribution width (RBC) [Entitic vol] 19.7 % High 11.6 - 14.8 % [facility] Hematocrit (Bld) [Volume fraction] 38.3 % 36 - 46 % [facility] Hemoglobin (Bld) [Mass/Vol] 12.8 g/dL 12 - 16 g/dL [facility] Immature granulocytes (Bld) [#/Vol] 0.05 10*3/uL [facility] Immature granulocytes/100 WBC (Bld) 0.40 % [facility] Comment on above: The IG parameter is the percentage of metamyelocytes, myelocytes, and promyelocytes. Interpretation and review of laboratory results Abnormal [facility] Lymphocytes (Bld) [#/Vol] 3.14 10*3/uL [facility] Lymphocytes/100 WBC (Bld) 23.9 % [facility] MCH (RBC) [Entitic mass] 29.1 pg 26 - 34 pg [facility] MCHC (RBC) [Mass/Vol] 33.4 g/dL 31 - 37 g/dL [facility] MCV (RBC) [Entitic vol] 87.0 fL 80 - 100 fL [facility] Monocytes (Bld) [#/Vol] 0.67 10*3/uL [facility] Monocytes/100 WBC (Bld) 5.1 % [facility] Neutrophils (Bld) [#/Vol] 9.16 10*3/uL [facility] Neutrophils/100 WBC (Bld) 69.6 % [facility] Nucleated RBC (Bld) [#/Vol] 0.01 10*3/uL [facility] Nucleated RBC/100 WBC (Bld) [Ratio] 0.1 % [facility] Platelet mean volume (Bld) [Entitic vol] 10.0 fL 9 - 15.5 fL [facility] Platelets (Bld) [#/Vol] 191 10*3/uL [facility] RBC (Bld) [#/Vol] 4.40 10*6/uL [facility] ealth WBC (Bld) [#/Vol] 13.15 10*3/uL [facility] CT ABDOMEN PELVIS WITH IV [...] is normal. 2. Hepatic steatosis. Workstation ID: [id number] Dictated by: MELINA BAILEY on WedAug 29, 2019 2:37:05 PM EST Transcribed by: MELINA BAILEY on WedAug 29, 2019 2:37:05 PM EST Finalized by: MELINA BAILEY on WedAug 29, 2019 2:37:[address] [facility] Comment on above: Order Comment: Injur y/Trauma [...] nondilated. There is no acute osseous pathology. [facility], Rad In Fuji Speechq - 08/29/2019 2:39 PM EST EXAMINATION: [...] is normal. 2. Hepatic steatosis. Workstation ID: [id number] [facility] 1. Fairly diffuse colonic wall thickening that may reflect incomplete bowel distention and spasm versus a mild colitis. There is no bowel obstruction. The appendix is normal. 2. Hepatic steatosis. Workstation ID: [id number] [facility] Hepatic Function Panel (LFT) on 08-29-2019 Albumin [Mass/Vol] 3.8 g/dL 3.2 - 5.2 g/dL [facility] ALP [Catalytic activity/Vol] 62 U/L 40 - 140 U/L [facility] ALT [Catalytic activity/Vol] 25 U/L 14 - 65 U/L [facility] AST [Catalytic activity/Vol] 21 U/L 0 - 45 U/L [facility] Bilirubin [Mass/Vol] 0.3 mg/dL 0 - 1.3 mg/dL [facility] Bilirubin.conjugate d [Mass/Vol] mg/dL 0 - 0.4 mg/dL [facility] Protein [Mass/Vol] 7.6 g/dL 6 - 8 g/dL [facility] alth Lipaseon 08-29-2019 Lipase [Catalytic activity/Vol] 102 U/L 73 - 393 U/L [facility] Otheron 08-29-2019 Extra Tube Hold for add-ons. [facility] Comment on above: Auto resulted. Interpretation and review of laboratory results Normal [facility] URINALYSISon 08-29-2019 Bacteria Auto Ql (U) None Seen None Seen /hpf [facility] Bilirubin Ql (U) Negative Negative [facility] th Clarity Refractometry automated (U) Clear Clear [facility] Color (U) Colorless Colorless, Yellow [facility] Glucose Auto test strip (U) [Mass/Vol] Negative Negative mg/dL [facility] Hemoglobin Auto test strip Ql (U) Large Abnormal Negative [facility] Interpretation and review of laboratory results Abnormal [facility] Ketones (U) [Mass/Vol] Negative Negative mg/dL [facility] Leukocyte esterase Auto test strip Ql (U) Negative Negative [facility] Nitrite Auto test strip Ql (U) Negative Negative [facility] pH (U) 6.0 [pH] [facility] Protein (U) [Mass/Vol] Negative Negative mg/dL [facility] Specific gravity (U) [Rel density] 1.002 Low [facility] Urobilinogen (U) [Mass/Vol] <2.0 <2.0 mg/dL [facility] WBC Auto (Urine sed) [#/Area] <1 [facility] Microscopic examination is performed on all urinalysis samples and only positive findings are reported. The test for blood on the chemical analytic portion of urinalysis may also be positive due to hemoglobinuria and myoglobinuria and if red blood cells are present they are quantified by microscopic examination. [facility] Urine Pregnancyon 08-29-2019 Beta HCG ( test) Ql (U) Urine specific gravity less than 1.010 can give a false negative test result. Any specimen with a specific gravity less than 1.010 or collected before the first day of a missed menstrual period should be checked with a serum test. [facility] HCG ( test) Ql (U) Negative Negative [facility] Interpretation and review of laboratory results Normal [facility] Basic Metabolic Panelon 09-26 Calcium mass conc 9.6 mg/dL Normal 8.2-10.2 [facility] Comment on above: Performed By: #### C BC, ETOH, CMP #### [facility] [address] Chloride molar conc 103 mmol/L Normal 95-114 [facility] Comment on above: Performed By: #### C BC, ETOH, CMP #### [facility] [address] CO2 molar conc 24.1 mmol/L Normal 22.0-30.0 [facility] Comment on above: Performed By: #### C BC, ETOH, CMP #### [facility] [address] Creatinine mass conc 127.9625827843 mg/dL Normal [facility] Comment on above: Result Comment: PERF ORMED BY: [place] [address] PATHOLOGIST SOLE SCRAPER CLAUDIA BAUER M.D. Performed By: #### C BC, ETOH, CMP #### [address] Creatinine mass conc 0.63 mg/dL Normal 0.44-1.03 [facility] Comment on above: Performed By: #### C BC, ETOH, CMP #### [address] Estimated GFR ( Khloe > 60 [facility] Comment on above: Result Comment: GFR estimated reference range: According to KDOQI guidelines, <60 ml/min/1.73m2 is sufficient to diagnose a patient with chronic kidney disease. Performed By: #### C BC, ETOH, CMP #### [place] [address] [place] Estimated GFR (Non- Am > 60 Normal [facility] Comment on above: Performed By: #### C BC, ETOH, CMP #### [facility] [address] [place] [address] [place] Glucose mass conc 91 mg/dL Normal 70-100 [facility] Comment on above: Result Comment: [place] om Glucose Reference Range is dependent on time and content of last meal. Glucose of more than 200 mg/dL in a nonstressed, ambulatory subject supports the diagnosis of Diabetes Mellitus. ADA recommended reference range Performed By: #### C BC, ETOH, CMP #### [facility] [address] Potassium molar conc 3.9 mmol/L Normal 3.5-5.1 [facility] Comment on above: Performed By: #### C BC, ETOH, CMP #### [facility] [address] Sodium molar conc 135 mmol/L Low 136-146 [facility] Comment on above: Performed By: #### C BC, ETOH, CMP #### [facility] [address] Urea nitrogen mass conc 4 mg/dL Low 9-23 [facility] Comment on above: Performed By: #### C BC, ETOH, CMP #### [address] Hepatic Panelon 10-10-2018 Albumin mass conc 3.5 g/dL Normal 3.2-5.5 [facility] Comment on above: Performed By: #### H STEVE BMP #### [address] Albumin/Globulin mass ratio 1.3 {ratio} Normal [facility] Comment on above: Performed By: #### H STEVE BMP #### [address] ALP enzyme act/vol 72 U/L Normal 32-92 [facility] Comment on above: Performed By: #### H STEVE BMP #### [facility] [address] [place] [address] ALT enzyme act/vol 91 U/L High 10-60 [facility] Comment on above: Performed By: #### H EPACLARI, BMP #### [facility] [address] [place] [address] AST enzyme act/vol 112 U/L High 10-42 [facility] Comment on above: Performed By: #### H EPACLARI BMP #### [facility] [address] [place] [address] Bilirubin mass conc 0.5 mg/dL Normal 0.3-1.2 [facility] Comment on above: Performed By: #### H STEVE BMP #### [facility] [address] [place] [address] Bilirubin,Indirect 0.3 mg/dL Normal [facility] Comment on above: Performed By: #### H STEVE, BMP #### [facility] [address] [place] [address] Bilirubin.direct mass conc 0.2 mg/dL Normal 0.0-0.4 [facility] Comment on above: Performed By: #### H STEVE, BMP #### [address] Globulin mass conc (S) 2.6 g/dL Normal [facility] Comment on above: Performed By: #### H STEVE, BMP #### [address] Protein mass conc 6.1 g/dL Normal 6.1-7.9 [facility] Comment on above: Performed By: #### H STEVE BMP #### [address] Basic Metabolic Panelon 09-26 Calcium mass conc 9.1 mg/dL Normal 8.2-10.2 [facility] Comment on above: Performed By: #### H STEVE BMP #### [address] Chloride molar conc 108 mmol/L Normal 95-114 [facility] Comment on above: Performed By: #### H STEVE, BMP #### [address] CO2 molar conc 22.8 mmol/L Normal 22.0-30.0 [facility] Comment on above: Performed By: #### H STEVE BMP #### [address] Creatinine mass conc 0.53 mg/dL Normal 0.44-1.03 [facility] Comment on above: Performed By: #### H STEVE BMP #### [address] Creatinine mass conc 167.7820645656 mg/dL Normal [facility] Comment on above: Result Comment: PERF ORMED BY: [place] [address] PATHOLOGIST SOLE SCRAPER CLAUDIA BAUER M.D. Performed By: #### H STEVE BMP #### [address] Estimated GFR ( Khloe > 60 Normal [facility] Comment on above: Result Comment: GFR estimated reference range: According to KDOQI guidelines, <60 ml/min/1.73m2 is sufficient to diagnose a patient with chronic kidney disease. Performed By: #### H STEVE BMP #### [address] Estimated GFR (Non- Am > 60 Normal [facility] Comment on above: Performed By: #### H STEVE BMP #### [place] [address] [place] Glucose mass conc 101 mg/dL High 70-100 [facility] Comment on above: Result Comment: [place] Glucose Reference Range is dependent on time and content of last meal. Glucose of more than 200 mg/dL in a nonstressed, ambulatory subject supports the diagnosis of Diabetes Mellitus. ADA recommended reference range Performed By: #### H STEVE BMP #### [place] [address] [place] Potassium molar conc 3.2 mmol/L Low 3.5-5.1 [facility] Comment on above: Performed By: #### H STEVE BMP #### [place] [address] [place] Sodium molar conc 137 mmol/L Normal 136-146 [facility] Comment on above: Performed By: #### H STEVE BMP #### [place] [address] [place] Urea nitrogen mass conc 3 mg/dL Low 9-23 [facility] Comment on above: Performed By: #### H STEVE BMP #### [facility] [address] [place] [address] Hepatic Panelon 10-09-2018 Albumin mass conc 3.2 g/dL Normal 3.2-5.5 [facility] Comment on above: Performed By: #### H STEVE BMP #### [address] Albumin/Globulin mass ratio 1.2 {ratio} Normal [facility] Comment on above: Performed By: #### H STEVE BMP #### [address] ALP enzyme act/vol 66 U/L Normal 32-92 [facility] Comment on above: Performed By: #### H STEVE BMP #### [address] ALT enzyme act/vol 89 U/L High 10-60 [facility] Comment on above: Performed By: #### H STEVE BMP #### [address] AST enzyme act/vol 156 U/L High 10-42 [facility] Comment on above: Performed By: #### H STEVE BMP #### [address] Bilirubin mass conc 0.5 mg/dL Normal 0.3-1.2 [facility] Comment on above: Performed By: #### H STEVE BMP #### [place] [address] [place] Bilirubin,Indirect 0.3 mg/dL Normal [facility] Comment on above: Performed By: #### H STEVE BMP #### [address] Bilirubin.direct mass conc 0.2 mg/dL Normal 0.0-0.4 [facility] Comment on above: Performed By: #### H STEVE BMP #### [address] Globulin mass conc (S) 2.6 g/dL Normal [facility] Comment on above: Performed By: #### H EPATIC, BMP #### [address] Protein mass conc 5.8 g/dL Low 6.1-7.9 [facility] Comment on above: Performed By: #### H EPATIC, BMP #### [address] Basic Metabolic Panelon 09-26 Calcium mass conc 9.2 mg/dL Normal 8.2-10.2 [facility] Comment on above: Performed By: #### H EPATIC, BMP, MG, [id number] #### [address] Chloride molar conc 105 mmol/L Normal 95-114 [facility] Comment on above: Performed By: #### H EPATIC, BMP, MG, [id number] #### [address] CO2 molar conc 24.1 mmol/L Normal 22.0-30.0 [facility] Comment on above: Performed By: #### H EPATIC, BMP, MG, [id number] #### [address] Creatinine mass conc 0.54 mg/dL Normal 0.44-1.03 [facility] Comment on above: Performed By: #### H EPATIC, BMP, MG, [id number] #### [address] Creatinine mass conc 163.7874083231 mg/dL [facility] Comment on above: Performed By: #### H EPATIC, BMP, MG, [id number] #### [address] Estimated GFR ( Khloe > 60 Normal [facility] Comment on above: Result Comment: GFR estimated reference range: According to KDOQI guidelines, <60 ml/min/1.73m2 is sufficient to diagnose a patient with chronic kidney disease. Performed By: #### H EPATIC, BMP, MG, [id number] #### [facility] [address] Estimated GFR (Non- Am > 60 Normal [facility] Comment on above: Performed By: #### H EPATIC, BMP, MG, [id number] #### [facility] [address] Glucose mass conc 68 mg/dL Low 70-100 [facility] Comment on above: Result Comment: [place] Glucose Reference Range is dependent on time and content of last meal. Glucose of more than 200 mg/dL in a nonstressed, ambulatory subject supports the diagnosis of Diabetes Mellitus. ADA recommended reference range Performed By: #### H EPATIC, BMP, MG, [id number] #### [address] Potassium molar conc 3.6 mmol/L Normal 3.5-5.1 [facility] Comment on above: Performed By: #### H EPATIC, BMP, MG, [id number] #### [address] Sodium molar conc 137 mmol/L Normal 136-146 [facility] Comment on above: Performed By: #### H EPATIC, BMP, MG, [id number] #### [address] Urea nitrogen mass conc 4 mg/dL Low 9-23 [facility] Comment on above: Performed By: #### H EPATIC, BMP, MG, [id number] #### [facility] [address] [place] [address] Complete Blood Count Auto Di ffon 10-08-2018 Basophils #/vol (Bld) 0.0 10*3/uL Normal 0.0-0.2 [facility] Comment on above: Result Comment: PERF ORMED BY: [place] [address] PATHOLOGIST SOLE SCRAPER CLAUDIA BAUER M.D. Performed By: #### C BC, ETOH, CMP #### [facility] [address] [place] [address] [place] Basophils/100 WBC (Bld) 0.4 % Normal . [facility] Comment on above: Performed By: #### C BC, ETOH, CMP #### [facility] [address] [place] [address] [place] Eosinophils #/vol (Bld) 0.0 10*3/uL Normal 0.0-0.45 [facility] Comment on above: Performed By: #### C BC, ETOH, CMP #### [facility] [address] [place] [address] [place] Eosinophils/100 WBC (Bld) 0.4 % Normal . [facility] Comment on above: Performed By: #### C BC, ETOH, CMP #### [address] Erythrocyte distribution width Ratio (RBC) 17.0 % High 11.9-15.3 [facility] Comment on above: Performed By: #### C BC, ETOH, CMP #### [address] Hematocrit Volume Fraction (Bld) 40.2 % Normal 34.0-46.4 [facility] Comment on above: Performed By: #### C BC, ETOH, CMP #### [address] Hemoglobin mass conc (Bld) 13.6 g/dL Normal 11.8-15.4 [facility] Comment on above: Performed By: #### C BC, ETOH, CMP #### [place] [address] [place] Lymphocytes #/vol (Bld) 1.2 10*3/uL Normal 1.00-4.8 [facility] Comment on above: Performed By: #### C BC, ETOH, CMP #### [place] [address] [place] Lymphocytes/100 WBC (Bld) 33.3 % Normal . [facility] Comment on above: Performed By: #### C BC, ETOH, CMP #### [address] [place] [address] [place] MCH Entitic mass (RBC) 33.8 g/dL Normal 32.0-35.0 [facility] Comment on above: Performed By: #### C BC, ETOH, CMP #### [address] MCH Entitic mass (RBC) 31.8 pg Normal 24.7-34.3 [facility] Comment on above: Performed By: #### C BC, ETOH, CMP #### [address] MCV Entitic volume (RBC) 94.1 fL Normal 80-100 [facility] Comment on above: Performed By: #### C BC, ETOH, CMP #### [address] Monocytes #/vol (Bld) 0.3 10*3/uL Normal 0.0-0.8 [facility] Comment on above: Performed By: #### C BC, ETOH, CMP #### [address] Monocytes/100 WBC (Bld) 6.8 % Normal . [facility] Comment on above: Performed By: #### C BC, ETOH, CMP #### [address] Neutrophils #/vol (Bld) 2.2 10*3/uL Normal 1.8-7.7 [facility] Comment on above: Performed By: #### C BC, ETOH, CMP #### [address] Neutrophils/100 WBC (Bld) 59.1 % Normal . [facility] Comment on above: Performed By: #### C BC, ETOH, CMP #### [address] Nucleated RBC/100 WBC Ratio (Bld) 0.1 % Normal 0-0.5 [facility] Comment on above: Performed By: #### C BC, ETOH, CMP #### [address] Platelet mean volume Entitic volume (Bld) 9.3 fL Normal 6.3-10.7 [facility] Comment on above: Performed By: #### C BC, ETOH, CMP #### [facility] [address] Platelets #/vol (Bld) 52 10*3/uL Low 150-450 [facility] Comment on above: Performed By: #### C BC, ETOH, CMP #### [address] RBC #/vol (Bld) 4.27 10*6/uL Normal 3.60-5.00 [facility] Comment on above: Performed By: #### C BC, ETOH, CMP #### [address] WBC #/vol (Bld) 3.7 10*3/uL Low 4.5-11.0 [facility] Comment on above: Performed By: #### C BC, ETOH, CMP #### [address] Comprehensive Metabolic Pane danitza 10-08-2018 Albumin mass conc 4.4 g/dL Normal 3.2-5.5 [facility] Comment on above: Performed By: #### C BC, ETOH, CMP #### [address] Albumin/Globulin mass ratio 1.6 {ratio} Normal [facility] Comment on above: Performed By: #### C BC, ETOH, CMP #### [address] ALP enzyme act/vol 81 U/L Normal 32-92 [facility] Comment on above: Performed By: #### C BC, ETOH, CMP #### [address] ALT enzyme act/vol 76 U/L High 10-60 [facility] Comment on above: Performed By: #### C BC, ETOH, CMP #### [address] [address] [place] AST enzyme act/vol 97 U/L High 10-42 [facility] Comment on above: Performed By: #### C BC, ETOH, CMP #### [facility] [address] Bilirubin mass conc 0.7 mg/dL Normal 0.3-1.2 [facility] Comment on above: Performed By: #### C BC, ETOH, CMP #### [facility] [address] Calcium mass conc 10.3 mg/dL High 8.2-10.2 [facility] Comment on above: Performed By: #### C BC, ETOH, CMP #### [address] Chloride molar conc 104 mmol/L Normal 95-114 [facility] Comment on above: Performed By: #### C BC, ETOH, CMP #### [facility] [address] [place] [address] CO2 molar conc 25.6 mmol/L Normal 22.0-30.0 [facility] Comment on above: Performed By: #### C BC, ETOH, CMP #### [facility] [address] [place] [address] Creatinine mass conc 0.62 mg/dL Normal 0.44-1.03 [facility] Comment on above: Performed By: #### C BC, ETOH, CMP #### [facility] [address] [place] [address] [place] Creatinine mass conc 128.3258875454 mg/dL Normal [facility] Comment on above: Result Comment: PERF ORMED BY: [place] [address] PATHOLOGIST SOLE SCRAPER CLAUDIA BAUER M.D. Performed By: #### C BC, ETOH, CMP #### [place] [address] [place] Estimated GFR ( Khloe > 60 Normal [facility] Comment on above: Result Comment: GFR estimated reference range: According to KDOQI guidelines, <60 ml/min/1.73m2 is sufficient to diagnose a patient with chronic kidney disease. Performed By: #### C BC, ETOH, CMP #### [facility] [address] Estimated GFR (Non- Am > 60 Normal [facility] Comment on above: Performed By: #### C BC, ETOH, CMP #### [facility] [address] Globulin mass conc (S) 2.8 g/dL Normal [facility] Comment on above: Performed By: #### C BC, ETOH, CMP #### [address] Glucose mass conc 95 mg/dL Normal 70-100 [facility] Comment on above: Result Comment: [place] Glucose Reference Range is dependent on time and content of last meal. Glucose of more than 200 mg/dL in a nonstressed, ambulatory subject supports the diagnosis of Diabetes Mellitus. ADA recommended reference range Performed By: #### C BC, ETOH, CMP #### [address] Potassium molar conc 4.1 mmol/L Normal 3.5-5.1 [facility] Comment on above: Performed By: #### C BC, ETOH, CMP #### [address] Protein mass conc 7.2 g/dL Normal 6.1-7.9 [facility] Comment on above: Performed By: #### C BC, ETOH, CMP #### [address] Sodium molar conc 140 mmol/L Normal 136-146 [facility] Comment on above: Performed By: #### C BC, ETOH, CMP #### [place] [address] [place] Urea nitrogen mass conc 4 mg/dL Low 9-23 [facility] Comment on above: Performed By: #### C BC, ETOH, CMP #### [place] [address] [place] Ethyl Alcohol Profileon 09-26 Ethanol mass conc mg/dL Normal [facility] Comment on above: Performed By: #### C BC, ETOH, CMP #### [facility] [address] Percent Ethanol Test not performed Normal [facility] Comment on above: Result Comment: PERF ORMED BY: [place] [address] PATHOLOGIST SOLE SCRAPER CLAUDIA BAUER M.D. Performed By: #### C BC, ETOH, CMP #### [facility] [address] [place] [address] Hepatic Panelon 10-08-2018 Albumin mass conc 3.7 g/dL Normal 3.2-5.5 [facility] Comment on above: Performed By: #### H EPATIC, BMP, MG, [id number] #### [facility] [address] [place] [address] Albumin/Globulin mass ratio 1.5 {ratio} Normal [facility] Comment on above: Performed By: #### H EPATIC, BMP, MG, [id number] #### [facility] [address] [place] [address] ALP enzyme act/vol 70 U/L Normal 32-92 [facility] Comment on above: Performed By: #### H EPATIC, BMP, MG, [id number] #### [facility] [address] [place] [address] ALT enzyme act/vol 77 U/L High 10-60 [facility] Comment on above: Performed By: #### H EPATIC, BMP, MG, [id number] #### [facility] [address] [place] [address] AST enzyme act/vol 142 U/L High 10-42 [facility] Comment on above: Performed By: #### H EPATIC, BMP, MG, [id number] #### [facility] [address] [place] [address] Bilirubin mass conc 0.9 mg/dL Normal 0.3-1.2 [facility] Comment on above: Performed By: #### H EPATIC, BMP, MG, [id number] #### [facility] [address] [place] [address] Bilirubin,Indirect 0.7 mg/dL Normal [facility] Comment on above: Performed By: #### H EPATIC, BMP, MG, [id number] #### [facility] [address] [place] [address] Bilirubin.direct mass conc 0.2 mg/dL Normal 0.0-0.4 [facility] Comment on above: Performed By: #### H EPATIC, BMP, MG, [id number] #### [address] Globulin mass conc (S) 2.5 g/dL Normal [facility] Comment on above: Performed By: #### H EPATIC, BMP, MG, [id number] #### [address] Protein mass conc 6.2 g/dL Normal 6.1-7.9 [facility] Comment on above: Performed By: #### H EPATIC, BMP, MG, [id number] #### [address] Magnesiumon 10-08-2018 Magnesium mass conc 1.7 mg/dL Normal 1.6-2.6 [facility] Comment on above: Performed By: #### H EPATIC, BMP, MG, [id number] #### [facility] [address] [place] [address] Vit. B12/Folate Profileon Cobalamin (Vitamin B12) mass conc 337 pg/mL Normal 180-914 [facility] Comment on above: Performed By: #### H EPATIC, BMP, MG, [id number] #### [facility] [address] [place] [address] Folate 8.9 ng/mL Normal [facility] Comment on above: Result Comment: Shea te reference range: >5.9 ng/ml The WHO technical consultation on folate and vitamin b12 deficiencies has determined that folate concentrations less than 4 ng/ml are considered deficient. PERFORMED BY: [facility] [address] [place] [address] PATHOLOGIST SOLE SCRAPER CLAUDIA BAUER M.D. Performed By: #### H EPATIC, BMP, MG, [id number] #### [address] [address] [facility] Vital Signs Date Time Vital Sign Value Performing Clinician Facility 04-26-2024 15:45-0400 Body height 162.6 cm Lizzeth Cortez PA Work Phone: [facility] 04-26-2024 15:45-0400 Body mass index (BMI) [Ratio] 29.63 kg/m2 Lizzeth Cortez PA Work Phone: [facility] 04-26-2024 15:45-0400 Body temperature 97.9 [degF] Lizzeth Cortez PA Work Phone: [facility] 04-26-2024 15:45-0400 Body weight 78.29 kg Lizzeth Cortez PA Work Phone: [facility] 04-26-2024 15:45-0400 Diastolic blood pressure 70 mm[Hg] Lizzeth Cortez PA Work Phone: [facility] 04-26-2024 15:45-0400 Heart rate 108 /min Lizzeth Cortez PA Work Phone: [facility] 04-26-2024 15:45-0400 SaO2% (BldA) [Mass fraction] 96 % Lizzeth Cortez PA Work Phone: [facility] 04-26-2024 15:45-0400 Systolic blood pressure 112 mm[Hg] Lizzeth Cortez PA Work Phone: [facility] 04-13-2024 16:13-0400 Body height 162.6 cm Adin Guzman DPM Work Phone: [facility] 04-13-2024 16:13-0400 Body mass index (BMI) [Ratio] 29.35 kg/m2 Adin Guzman DPM Work Phone: [facility] 04-13-2024 16:13-0400 Body weight 77.56 kg Adin Guzman DPM Work Phone: [facility] 04-13-2024 16:13-0400 Diastolic blood pressure 80 mm[Hg] Adin Guzman DPM Work Phone: [facility] 04-13-2024 16:13-0400 Heart rate 85 /min Adin Guzman DPM Work Phone: [facility] 04-13-2024 16:13-0400 Systolic blood pressure 126 mm[Hg] Adin Guzman DPM Work Phone: [facility] 07-20-2023 14:04-0500 Diastolic blood pressure 76 mm[Hg] Ann Vidal MD Work Phone: [facility] 07-20-2023 14:04-0500 Heart rate 89 /min Ann Vidal MD Work Phone: [facility] 07-20-2023 14:04-0500 Systolic blood pressure 130 mm[Hg] Ann Vidal MD Work Phone: [facility] 05-12-2023 13:48-0500 Respiratory rate 16 /min Neeraj TAMMY [facility] 06-05-2020 12:47-0500 BMI (Body Mass Index) 30.04 kg/m2 [facility] 06-05-2020 12:47-0500 Body Temperature 98.8 [degF] [facility] 06-05-2020 12:47-0500 Body weight 79.38 kg [facility] 06-05-2020 12:47-0500 BP Diastolic 79 mm[Hg] [facility] 06-05-2020 12:47-0500 BP Systolic 114 mm[Hg] [facility] 06-05-2020 12:47-0500 Height 162.6 cm [facility] 06-05-2020 12:47-0500 Pulse (Heart Rate) 118 /min Radha Li [facility] 06-05-2020 12:47-0500 Pulse Oximetry 95 % Radha Li [facility] 06-05-2020 12:47-0500 Respiratory Rate 14 /min Radha Li [facility] 05-21-2020 18:13-0500 BMI (Body Mass Index) 30.04 kg/m2 [facility] 05-21-2020 18:13-0500 Body Temperature 97.9 [degF] [facility] 05-21-2020 18:13-0500 Body weight 79.38 kg [facility] 05-21-2020 18:13-0500 BP Diastolic 88 mm[Hg] [facility] 05-21-2020 18:13-0500 BP Systolic 122 mm[Hg] [facility] 05-21-2020 18:13-0500 Height 162.6 cm [facility] 05-21-2020 18:13-0500 Pulse (Heart Rate) 109 /min [facility] 05-21-2020 18:13-0500 Pulse Oximetry 97 % [facility] 05-21-2020 18:13-0500 Respiratory Rate 18 /min [facility] 10-11-2019 14:50-0400 BMI (Body Mass Index) 27.12 kg/m2 Radha Li [facility] 10-11-2019 14:50-0400 Body Temperature 97.5 [degF] [facility] 14:50-0400 Body weight 71.67 kg [facility] 10-11-2019 14:50-0400 BP Diastolic 70 mm[Hg] [facility]-11[facility]2019 14:50-0400 BP Systolic 126 mm[Hg] [facility] 10-11-2019 14:50-0400 Height 162.6 cm [facility] 10-11-2019 14:50-0400 Pulse (Heart Rate) 91 /min [facility] 10-11-2019 14:50-0400 Pulse Oximetry 96 % [facility] 10-11-2019 14:50-0400 Respiratory Rate 16 /min Radha Li [facility] 10-09-2019 08:38-0400 BMI (Body Mass Index) 27.12 kg/m2 Ollie Feng [facility] 10-09-2019 08:38-0400 Body Temperature 98.1 [degF] Ollie Feng [facility] 10-09-2019 08:38-0400 Body weight 71.67 kg Ollie Feng [facility] 10-09-2019 08:38-0400 BP Diastolic 75 mm[Hg] Ollie Feng [facility] 10-09-2019 08:38-0400 BP Systolic 112 mm[Hg] Ollei Feng [facility] 10-09-2019 08:38-0400 Height 162.6 cm Ollie Feng [facility] 10-09-2019 08:38-0400 Pulse (Heart Rate) 89 /min Ollie Feng [facility] 10-09-2019 08:38-0400 Pulse Oximetry 97 % Ollie Feng [facility] 10-09-2019 08:38-0400 Respiratory Rate 16 /min Ollie Feng [facility] 10-07-2019 13:51-0400 BP Diastolic 83 mm[Hg] Gwendolynjewel Tee [facility] 10-07-2019 13:51-0400 BP Systolic 110 mm[Hg] [facility] 10-07-2019 13:51-0400 Pulse (Heart Rate) 76 /min Gwendolyn [facility] 10-07-2019 13:51-0400 Pulse Oximetry 98 % Gwendolynjewel Tee [facility] 10-07-2019 13:51-0400 Respiratory Rate 16 /min [facility] 10-07-2019 12:02-0400 Body Temperature 97.5 [degF] Gwendolynjewel Tee [facility] 10-07-2019 11:57-0400 BMI (Body Mass Index) 27.12 kg/m2 Gwendolynjewel Tee [facility] 10-07-2019 11:57-0400 Body weight 71.67 kg Gwendolynjewel Tee [facility] 10-07-2019 11:57-0400 Height 162.6 cm Gwendolynjewel Tee [facility] 08-29-2019 14:15-0500 BP Diastolic 81 mm[Hg] Boone Resendiz [facility] 08-29-2019 14:15-0500 BP Systolic 116 mm[Hg] Boone Resendiz [facility] 08-29-2019 14:15-0500 Pulse (Heart Rate) 84 /min Boone Resendiz [facility] 08-29-2019 14:15-0500 Pulse Oximetry 97 % Boone Resendiz [facility] 08-29-2019 13:01-0500 BMI (Body Mass Index) 23.69 kg/m2 Boone Resendiz [facility] 08-29-2019 13:01-0500 Body Temperature 98.1 [degF] Boone Resendiz [facility] 08-29-2019 13:01-0500 Body weight 62.6 kg Boone Resendiz [facility] 08-29-2019 13:01-0500 Height 162.6 cm Boone Resendiz [facility] 08-29-2019 13:01-0500 Respiratory Rate 18 /min Boone Resendiz [facility] Encounters Encounter Date Encounter Type Care Provider Facility Start: 04-26-2024 End: 04-26-2024 Office outpatient visit 25 minutes Lizzeth Cortez PA Work Phone: [facility] Comment on above: Left breast abscess (Primary Dx) Start: 04-26-2024 End: 04-26-2024 ambulatory LIZZETH CORTEZ Not Available Start: 04-26-2024 End: 04-26-2024 Telephone encounter Darnell Melody Nowak DO Work Phone: [facility] [address] Start: 04-13-2024 End: 04-13-2024 ambulatory ADIN GUZMAN Not Available Start: 04-13-2024 End: 04-13-2024 Office outpatient visit 15 minutes Adin Guzman DPM Work Phone: [facility] Comment on above: Ganglion cyst of rig ht foot (Primary Dx); Mass of right foot; Mass of left foot; Plantar fasciitis Start: 04-13-2024 End: 04-13-2024 Bamboo flowsheet Adin Guzman DPM Work Phone: [facility] Start: 04-13-2024 End: 04-13-2024 Bamboo flowsheet Adin Guzman DPM Work Phone: [facility] Start: 03-23-2024 End: 03-23-2024 ambulatory ADIN GUZMAN Not Available Start: 03-03-2024 End: 03-03-2024 ambulatory LIZZETH Cook TOMASA Not Available Start: 07-20-2023 End: 07-20-2023 ambulatory ANN VIDAL [facility] Start: 07-20-2023 End: 07-20-2023 Office outpatient new 45 minutes Ann Vidal MD Work Phone: [facility] Comment on above: Abscess of left [address] (Primary Dx); Abscess of right breast; Tobacco abuse Start: 07-07-2023 End: 07-07-2023 ambulatory ASHLYN DON Not Available Start: 06-24-2023 End: 06-24-2023 ambulatory DARNELL Melody NOWAK Not Available Start: 06-09-2023 End: 06-09-2023 ambulatory DARNELL NOWAK Not Available Start: 06-02-2023 End: 06-03-2023 ambulatory Neeraj R NILL Facility: [facility] Start: 06-02-2023 End: 06-02-2023 Patient encounter procedure Neeraj R NILL [facility] Start: 05-27-2023 End: 05-28-2023 ambulatory IMTIAZ METZ Not Available Start: 05-18-2023 End: 05-19-2023 ambulatory Neeraj R NILL Facility: [facility] Start: 05-18-2023 End: 05-18-2023 Patient encounter procedure Neeraj R NILL [facility] Start: 05-12-2023 End: 05-13-2023 ambulatory Neeraj R NILL Facility: [facility] Start: 05-12-2023 End: 05-12-2023 Patient encounter procedure Neeraj R NILL [facility] Nill[facility] Start: 05-03-2023 ambulatory Neeraj NILL Facility: [facility] Start: 10-09-2021 End: 10-12-2021 Evaluation and management of inpatient DR LARRY TORRES Facility:[facility] Start: 08-30-2021 End: 08-30-[address] GOLD LAY Facility:[facility] Start: 07-04-2021 End: 07-04-[address] OSMIN MCGEE Facility:[facility] Start: 06-04-2021 End: 06-04-2021 ambulatory SILVA SARMIENTO Facility:[facility] Start: 04-26-2021 End: 04-26-[address] BOONE HOLT Facility:[facility] Start: 10-09-2020 Patient encounter procedure PHYSICIAN SHAHNAZ [facility] Start: 06-12-2020 End: 06-12-2020 Patient encounter procedure HESHAM BARNES [facility] Start: 06-05-2020 End: 06-05-2020 Emergency department patient visit PHYSICIAN [facility] Start: 06-05-2020 End: 06-05-2020 Emergency department patient visit Radha Li Work Phone: [facility] Emergency Department Comment on above: COVID-19 virus infec tion (Primary Dx); Nonintractable headache, unspecified chronicity pattern, unspecified headache type; Myalgia; Fatigue, unspecified type Start: 05-21-2020 End: 05-21-2020 Emergency department patient visit PHYSICIAN [facility] Start: 05-21-2020 End: 05-21-2020 Emergency department patient visit Onofre Rowell Work Phone: [facility] Emergency Department Comment on above: COVID-19 virus infec tion (Primary Dx) Start: 2020 End: 2020 Documentation procedure [facility] Comment on above: No show inital appoi ntment 01/29/2020 Start: 10-11-2019 End: 10-11-2019 Emergency department patient visit PHYSICIAN [facility] Start: 10-11-2019 End: 10-11-2019 Emergency department patient visit Radha Li Work Phone: [facility] Emergency Department Comment on above: Wound check, abscess (Primary Dx); Dressing change Start: 10-09-2019 End: 10-09-2019 Emergency department patient visit PHYSICIAN [facility] Start: 10-09-2019 End: 10-09-2019 Emergency department patient visit Ollie Feng Work Phone: [facility] Emergency Department Comment on above: Encounter for rechec k of abscess following incision and drainage (Primary Dx) Start: 10-07-2019 End: 10-07-2019 Emergency department patient visit PHYSICIAN NO [facility] Start: 10-07-2019 End: 10-07-2019 Emergency department patient visit Gwendolyn Tee Work Phone: [facility] Emergency Department Comment on above: Abscess of left [address] (Primary Dx) Start: 08-29-2019 End: 08-29-2019 Emergency department patient visit BOONE RESENDIZ [facility] Start: 08-29-2019 End: 08-29-2019 Emergency department patient visit Boone Resendiz Work Phone: [facility] Emergency Department Comment on above: Nausea and vomiting, intractability of vomiting not specified, unspecified vomiting type (Primary Dx); Epigastric pain; Alcohol abuse Start: 10-08-2018 End: 10-10-2018 Evaluation and management of inpatient Jericho Barreto Facility:[facility] Procedures Date Procedure Procedure Detail Performing Clinician Start: 05-21-2020 COVID-19/INFLUENZA A,B MOLECULAR Ajay Duran Work Phone: Start: 10-07-2019 Incision AND drainage Maria Elena West Work Phone: Start: 08-29-2019 Ct abdomen & pelvis w/contrast material Aajy Duran Work Phone: Start: 08-29-2019 Basic metabolic [...] Treatment Date Care Activity Detail Author Start: 02-05-2028 DTaP,Tdap and Td Vaccines (2 - Td or Tdap) DTaP,Tdap and Td Vaccines (2 - Td or Tdap) [facility] Start: 05-12-2024 End: 05-12-2024 Patient encounter procedure 05/12/2024 11:00 AM EST Office Visit [facility] [address] [place] [phone] Lizzeth Cortez PA [address] [place] [address] [facility] Start: 04-28-2024 End: 04-28-2024 Patient encounter procedure 04/28/2024 3:40 PM EDT Office Visit [facility] [address] [place] [phone] Lizzeth Cortez PA [address] [place] [address] [facility] [address] Start: 02-27-2024 Influenza vaccination Influenza Vacc ine (#1) [facility] Start: 02-26-2023 Influenza vaccination Influenza Vacc ine [facility] Start: 06-12-2020 End: 06-12-2020 Telemedicine 06/12/2020 Telemedicine Primary Care Willard Hesham [place], HELP DESK REP [address] [place] [address] [phone] [facility] Start: 05-22-2020 End: 05-22-2020 Office Visit 05/22/2020 Office Visit Obstetrics and Gynecology Franklyn Gabriel MD [facility] [place] [address] [phone] [facility] Start: 02-27-2020 Influenza vaccinatio n given Sequential Influenza Vaccine (#1) [facility] Start: 02-26-2019 Influenza vaccinatio n given Sequential Influenza Vaccine (#1) [facility] Start: 2017 Screening for malign ant neoplasm of cervix [facility] Start: 01-31-2008 Screening for malign ant neoplasm of cervix Pap Smear [facility] Start: 2005 Adult BMI Screening Adult BMI Screen ing [facility] Start: 2005 Hepatitis C antibody , confirmatory test Hepatitis C Screening [facility] Start: 2002 HIV screening HIV Screening [facility] Start: 1999 Adolescent depressio n screening assessment [facility] Start: 1999 Tobacco Screening Tobacco Screening [facility] Start: 1990 History and physical examination, annual for health maintenance Wellness Visit [facility] Start: 1987 Depression screening using PHQ-9 (Patient Health Questionnaire 9) score Depression Screening (PHQ9) [facility] Start: 1987 Screening for malign ant neoplasm of cervix Pap Smear [facility] Start: 1987 Tetanus vaccination Tetanus: Every 1 0yrs [facility] End: 10-07-2019 Aerobic microbial culture Wound Aerobic Culture Microbiology Routine Once for 1 Occurrences starting 10/07/2019 until 10/07/2019 [facility] Comment on above: Once for 1 Occurrenc es starting 10/07/2019 until 10/07/2019 Aerobic microbial culture Wound Aerobic Culture Microbiology Routine 10/07/2019 1:30 PM EDT [facility] End: 10-07-2019 Wound Anaerobic Culture Wound Anaerobic Culture Microbiology Routine Once for 1 Occurrences starting 10/07/2019 until 10/07/2019 [facility] Comment on above: Once for 1 Occurrenc es starting 10/07/2019 until 10/07/2019 Wound Anaerobic Culture Wound An aerobic Culture Microbiology Routine 10/07/2019 1:30 PM EDT [facility] Immunizations Immunization Date Immunization Notes Care Provider Ceasar cotto 06-01-2011 influenza virus vaccine, unspecified formulation Ann Vidal MD Work Phone: [employer] NEGATED: Highlighted row has not occurred!05-12-2023 influenza virus vaccine, unspecified formulation Neeraj MUNOZ [facility] Payers Date Payer Category Payer Private Health Insurance [employer] [id number] 2023 Unknown [employer] M [place] [employer] [id number] 2023-Present [phone] [address] [place] [address] [id number] 2023 Unknown [id number] 2019 Private Health Insurance MIAN Mark IGNA CHOICE FUND-ANY CHOICE FUND [id number] 2019-Present [id number] 2019 Private Health Insurance [id number] 2018 Medicaid [employer]ICA[employer] [id number] 2018-Present [id number] 2018 Private Health Insurance xxx [id number] 2018 Self-pay 2018 Unknown [id number] 2015 Unknown [id number] 1987 Unknown [id number] 2.16.840.1.601019.3.579.2. 903 1987 Unknown [id number] 2.16.840.1.194830.3.579.2. 903 1987 Unknown [id number] 2.16.840.1.574954.3.579.2. 903 1987 Unknown [id number] 2.16.840.1.430926.3.579.2. 903 1987 Unknown [id number] 2.16.840.1.310467.3.579.2. 903 1987 Unknown [id number] 2.16.840.1.032447.3.579.2. 903 1987 Unknown [id number] 2.16.840.1.541682.3.579.2. 903 1987 Unknown [id number] 2.16.840.1.998278.3.579.2. 903 1987 Unknown [id number] 2.16.840.1.777278.3.579.2. 593 1987 Unknown [id number] 2.16.840.1.278560.3.579.2. 593 1987 Unknown [id number] 2.16.840.1.084714.3.579.2. 593 1987 Unknown [id number] 2.16.840.1.301604.3.579.2. 593 1987 Unknown [id number] 2.16.840.1.289420.3.579.2. 593 1987 Unknown [id number] 2.16.840.1.808297.3.579.2. 727 1987 Unknown [id number] 2.16.840.1.824105.3.579.2. 727 1987 Unknown [id number] 2.16.840.1.245032.3.579.2. 727 1987 Unknown [id number] 2.16840.1.806884.3.579.2. 727 1987 Unknown [id number] 2.16.840.1.091580.3.579.2. 727 1987 Unknown [id number] 2.16.840.1.271970.3.579.2. 1286 1987 Unknown [id number] 2.16.840.1.174635.3.579.2. 9 1987 Unknown [id number] 2.16840.1.437333.3.579.2. 1259 1987 Unknown [id number] 2.16.840.1.034403.3.579.2. 1259 1987 Unknown [id number] 2.16.840.1.560466.3.579.2. 1258 1987 Unknown [id number] 2.16.840.1.867995.3.579.2. 1259 1987 Unknown [id number] 2.16.840.1.226995.3.579.2. 1259 1987 Unknown [id number] 2.16840.1.835021.3.579.2. 1259 1987 Unknown [id number] 2.16.840.1.732859.3.579.2. 1259 1959 Private Health Insurance [id number] 1959 Unknown [id number] Unknown [id number] 2.16.840.1.088765.3.579.2. 531 Social History Date Type Detail Facility Start: 06-28-2000 End: 03-23-2024 Tobacco smoking status AKIS Current every day smoker [facility] Start: 06-28-2000 History of tobacco use Cigarette Smo ker [facility] Start: 08-29-2019 End: 06-04-2023 Cigarettes smoked current (pack per day) - Reported [facility] Start: 08-29-2019 End: 04-26-2024 Alcohol intake Current drinker of alcohol (finding) [facility] Start: 08-29-2019 Alcohol Comment daily [facility] Start: 1987 Sex Assigned At Not on file [facility] Start: 10-07-2019 Alcohol Comment socially [facility] Exposure to SARS-CoV -2 (event) Unable to assess [facility] Start: 05-21-2020 End: 03-23-2024 Tobacco use and exposure Never used [facility] Exposure to SARS-CoV -2 (event) Yes [facility] Start: 05-12-2023 Tobacco smoking status Heavy t obacco smoker (finding) [facility] Tobacco smoking status Never [facility] Start: 01-04-2019 End: 06-04-2023 Sex Assigned At Female Rajendra Clark [facility] Tobacco smoking stat [facility] Tobacco smoking consumption unknown [facility] Within the last year , have you been afraid of your partner or ex-partner? No [facility] Are you now , , , , never or living with a partner? [facility] How often to you hav e a drink containing alcohol? Never [facility] How hard is it for y ou to pay for the very basics like food, housing, medical care, and heating Not very hard [facility] Do you feel stress - tense, restless, nervous, or anxious, or unable to sleep at night because your mind is troubled all the time - these days [OSQ] Not at all [facility] (I/We) worried wheth er (my/our) food would run out before (I/we) got money to buy more. Never true [facility] Start: 06-09-2023 Alcohol Comment Used to be a alcohol ic [facility] Start: 1985 Sex assigned at Female [facility] Start: 05-27-2023 Gender identity Identifies as female gender (finding) [facility] Functional Status Date Assessment Result Facility 05-12-2023 Functional Status N/A General [facility] Clinical Notes 07-20-2023 to 04-26-2024 [facility] Butler - 04/26/2024 3:40 PM EDTTelephone Encounter - Rosa Melissa - 04/26/2024 8:11 AM EDTTelephone Encounter - Rosa Melissa - 04/26/2024 8:11 AM EDT Note Date & Type Note Facility 04-26-2024 History of Presen t illness Narrative Images from the original note were not included. Subjective Patient ID: Shannan Lopez is a 39 y.o. female who presents for Follow-up (Pt c/o left breast lump that painful, red, warm to touch. Pt sates that this started about two days ago. ). Breast Problem Chronicity: Recurrent Associated Symptoms: breast mass, breast pain, breast redness and tenderness Associated Symptoms: no breast discharge Affected side: Left Onset: In the past 7 days Progression since onset: Worsening Currently : No Risk factors: smoking Prior workup: previous imaging and I&D of breast abscesses. Treatments tried: None Review of Systems Constitutional: Negative for chills and fever. Breasts: Positive for breast mass. Negative for breast discharge. Respiratory: Negative for shortness of breath. Cardiovascular: Negative for chest pain. Gastrointestinal: Negative for diarrhea, nausea and vomiting. Musculoskeletal: Negative for myalgias. Skin: Negative for rash. All other systems reviewed and are negative. Objective Visit Vitals BP 112/70 Pulse 108 Temp 97.9 F Ht 5' 4 Wt 172 lb 9.6 oz SpO2 96% BMI 29.63 kg/m Smoking Status Every Day BSA 1.88 m Physical Exam Exam conducted with a dormitory counselor present. Constitutional: General: She is not in acute distress. Appearance: Normal appearance. HENT: Head: Normocephalic and atraumatic. Mouth/Throat: Mouth: Mucous membranes are moist. Cardiovascular: Rate and Rhythm: Normal rate and regular rhythm. Pulses: Normal pulses. Heart sounds: No murmur heard. No friction rub. No gallop. Pulmonary: Effort: No respiratory distress. Breath sounds: Normal breath sounds. No wheezing, rhonchi or rales. Chest: Breasts: Left: Mass (large abscess located posteriorly to the nipple; >1 inch in diameter), skin change (mild erythema) and tenderness present. No nipple discharge. Skin: General: Skin is warm and dry. Neurological: General: No focal deficit present. Mental Status: She is alert and oriented to person, place, and time. Psychiatric: Mood and Affect: Mood normal. Behavior: Behavior normal. Judgment: Judgment normal. Assessment/Plan Diagnoses and all orders for this visit: Left breast abscess - clindamycin (Cleocin) 300 MG capsule; Take 1 capsule (300 mg) by mouth in the morning and 1 capsule (300 mg) in the evening and 1 capsule (300 mg) before bedtime. Do all this for 10 days. - sulfamethoxazole-trimethoprim (Bactrim DS) 800-160 MG per tablet; Take 1 tablet by mouth in the morning and 1 tablet before bedtime. Do all this for 10 days. Take medication(s) as prescribed. Medications were prescribed based on Up To Date empiric therapy recommendations and previous culture results. Discussed side effects of medication(s). If persistent or worsening with any systemic symptoms (fever, chills, myalgia, etc.), report to the ER. Discussed potential serious complications and s/s of worsening infection. Follow up with surgical breast specialist. Pt expresses desire to quit smoking. Follow up after completion of abx. All questions answered. Call the office with any other questions or concerns. Pt verbalized understanding. documented in this encounter [facility] 04-26-2024 Telephone encounter Note Pt requesting an antibiotic and pain med for possible infection in lt breast. Its red and quarter in size above nipple started 2 days ago. DDM in [place]. She made appointment for Wednesday. She said if she can't make that she will go to ER. Please call ok to leave message [facility] 04-26-2024 Miscellaneous Notes Pt requesting an antibiotic and pain med for possible infection in lt breast. Its red and quarter in size above nipple started 2 days ago. DDM in [place]. She made appointment for Wednesday. She said if she can't make that she will go to ER. Please call ok to leave message documented in this encounter [facility] 04-13-2024 History of Presen t illness Narrative Patient: Shannan Lopez : 1985 PCP: Darnell Nowak, SUBJECTIVE This is a 39 y.o. female that presents today for a chief complaint of large growing mass to the outer aspect of her right foot and small mass to the top of the left foot. Patient states some pain with ambulation in shoe gears had masses that have increased in size over the past 6 months. She has had recent aspiration of masslike lesion to the right foot with positive improvement. She also has complaints of cramping as well to her arch region along the mid instep region of bilateral feet particularly with longstanding activities with some relief with shoe gear. Patient has numb at deductible at this point in time for orthotics Allergies: Allergies Allergen Reactions Penicillins Unknown Past Medical History: Past Medical History: Diagnosis Date PUD (peptic ulcer disease) Medications: No current outpatient medications on file. Social History: Social History Socioeconomic History Marital status: Spouse name: Not on file Number of children: Not on file Years of education: Not on file Highest education level: Not on file Occupational History Not on file Tobacco Use Smoking status: Every Day Current packs/day: 1.00 Average packs/day: 1 pack/day for 23.8 years (23.8 ttl pk-yrs) Types: Cigarettes Start date: 06/28/2000 Smokeless tobacco: Never Substance and Sexual Activity Alcohol use: Yes Comment: Used to be a alcoholic Drug use: Never Sexual activity: Yes Partners: Male Other Topics Concern Not on file Social History Narrative Not on file Social Drivers of Health Financial Resource Strain: Low Risk (06/04/2023) Overall Financial Resource Strain (CARDIA) Difficulty of Paying Living Expenses: Not very hard Food Insecurity: No Food Insecurity (06/04/2023) Hunger Vital Sign Worried About Running Out of Food in the Last Year: Never true Ran Out of Food in the Last Year: Never true Transportation Needs: No Transportation Needs (06/04/2023) PRAPARE - Transportation Lack of Transportation (Medical): No Lack of Transportation (Non-Medical): No Physical Activity: Sufficiently Active (06/04/2023) Exercise Vital Sign Days of Exercise per Week: 7 days Minutes of Exercise per Session: 60 min Stress: No Stress Concern Present (06/04/2023) [place] [employer] - Occupational Stress Questionnaire Feeling of Stress : Not at all Social Connections: Socially Integrated (06/04/2023) Social Connection and Isolation Panel [NHANES] Frequency of Communication with Friends and Family: More than three times a week Frequency of Social Gatherings with Friends and Family: Twice a week Attends Shinto Services: More than 4 times per year Active Member of Clubs or Organizations: Yes Attends Club or Organization Meetings: Never Marital Status: Intimate Partner Violence: Not At Risk (06/04/2023) Humiliation, Afraid, Rape, and Kick questionnaire Fear of Current or Ex-Partner: No Emotionally Abused: No Physically Abused: No Sexually Abused: No Housing Stability: Low Risk (06/04/2023) Housing Stability Vital Sign Unable to Pay for Housing in the Last Year: No Number of Places Lived in the Last Year: 1 Unstable Housing in the Last Year: No ROS: General: denies fever, chills, fatigue, malaise Gastrointestinal: denies abdominal pain, ulcers, or changes in appetite or bowel habits Musculoskeletal: denies arthritis, denies loss of strength, pain to hip, knees, back Cardiovascular: denies CP, palpitations, irregular rhythms OBJECTIVE LE EXAM: DERM: Positive hair growth to b/l feet with good skin turgor noted. Negative openings in skin Greatly diminished fluctuant mass to lateral aspect of the right foot near the cuboid metatarsal joint region that measures 3 cm x 5 cm with minimal pain on palpation to mass Small fluctuant mass to the 4th dorsum of the MPJ region of the left foot that measures 1.2 cm x 1.2 cm VASC: Palpable pedal pulsed b/l with warm to cool tibia to toes b/l NEURO: Gross sensation intact digits 1-10 and b/l feet ORTHO: +5/5 DF/PF/IN/EV right, +5/5 DF/PF/IN/EV left. 20 degrees inversion and 10 degrees eversion STJ b/l. Ankle ROM less than 10 degrees b/l. Diminished pain on palpation to bilateral foot masses Positive pain on palpation on the mid arch region of bilateral feet along the plantar fascial band ASSESSMENT 1. Ganglion cyst of right foot 2. Mass of right foot 3. Mass of left foot 4. Plantar fasciitis PLAN Patient to continue with oral anti - inflammatories as needed for pain and recommended OTC medications such as tylenol or Ibuprofen Discussed conservative and surgical treatment options for patient today including postoperative time frame and surgical procedure in detail. Patient may continue with conservative treatments including [id number] anti-inflammatories and other treatments suggested today. Patient may want to be scheduled for surgical intervention in the near future. Patient states she would like to have the right and left foot mass removed at the same time and ganglion cyst removal to left and right foot. Her primary care doctor is Dr. Imtiaz Aldridge and would like [place] for postoperative pain instructed to call has will schedule post call in the near future when she decides good timeframe to have surgical procedure Adin Guzman DPM documented in this encounter [facility] 07-20-2023 History of Presen t illness Narrative I had the pleasure of meeting Shannan Lopez today. She was accompanied by her . She is a very pleasant 38 y.o. year old female who presents today for recommendations regarding recurrent bilateral breast abscesses. Most of the time these have been treated with a small incision and drainage with antibiotics. More recently however she has required a surgical incision and drainage on each side. Her most recent abscess was in May 2023 on the right side. She states this has been ongoing for the last 6-7 years. She is an active smoker. When she required surgical incision and drainage, she had to pack her wounds. She has had 1 instance where she has had purulent drainage from her left nipple when she had an abscess. She denies any persistent open tracts at the edge of the areola. GYNECOLOGIC HISTORY & RISK ASSESSMENT: First day of last menstrual period (if still having periods): 07/08/2023 Age at which you started menses (periods): 12-13 yrs Have you ever used hormonal control (patch, pill, shot, implant, IUD)? Yes What is your current control method, if applicable? N/A Have you ever been and, if so, how many times? 2 How many children do you have? 2 How old were you at your first delivery? 20-24 yrs Did you breastfeed? No Have you had a hysterectomy? No Do you have your ovaries? Yes Age at start of menopause: N/A Have you ever used hormone replacement therapy? No Using currently? N/A How many breast biopsies have you had, including this one, if applicable? 2 Have you had breast surgery before? Left/Right Date/side/reason: 04/30/24, 06/01/24 Have you or any family members had genetic testing? No Do you have Ashkenazi Pentecostalism ancestry? No I reviewed notes from primary care dated 07/07/2023 and 06/09/2023, imaging including bilateral diagnostic tomogram and bilateral breast ultrasound dated 07/16/2023, history form dated 07/20/2023, operative notes from April and May 2023, pathology dated April 2023. Past Medical History No past medical history on file. Past Surgical History No past surgical history on file. Family History No family history on file. Current Medications No current outpatient medications on file. Allergies Not on File Social History Social History Substance and Sexual Activity Alcohol Use Not on file Social History Tobacco Use Smoking Status Not on file Smokeless Tobacco Not on file Social History Substance and Sexual Activity Drug Use Not on file OBJECTIVE Her vitals were not taken for this visit. Constitutional: awake, alert, no apparent distress Head: Normocephalic, atraumatic. Eyes: Conjunctiva normal bilaterally; EOMI Neck: supple; no lymphadenopathy, thyromegaly, or masses. Extremities: good circulation, without deformities. Neurologic: CN II-XII grossly intact. Oriented to place, person, and situation. Psychiatric: Appropriately interactive with provider. Normal mood and affect. Skin: no significant rashes or lesions on exposed skin. Examination of her chest in the upright position reveals her breasts are both large in size and somewhat asymmetric. She has more scarring in the giorgi areolar region on the left than on the right. Her incisions are located medially on the left and laterally on the right in the giorgi areolar region. Examination of the left breast reveals significant scarring in the medial giorgi areolar region with no suspicious mass. Examination of the right breast demonstrates significant scarring in the lateral giorgi areolar region with no suspicious mass. She has no evidence of palpable chest wall mass, axillary lymphadenopathy, or lymphedema. Her images were reviewed. She underwent a bilateral diagnostic tomogram and bilateral breast ultrasound last week. Mammogram was essentially benign. Ultrasound in the right demonstrated a possible dilated duct and on the left only scar tissue. 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 We discussed how this leads to blockages and subsequent infections. We discussed that discontinuation of her tobacco use may resolve the problem. If it does not, then a major duct excision would be necessary. With active smoking and a major duct excision, she would be at risk for nipple loss. After discussing this fully and answering their questions, she is going to attempt to stop using tobacco. If she continues to have abscesses after she has discontinued the tobacco use, then she understands that a major duct excision would be warranted. Doing a major duct excision while she is still smoking puts her at elevated risk for nipple loss. I encouraged her to contact me if she would like me to see her either for an active abscess or for consideration of more definitive surgery. In the meantime I recommended that she contact her primary care physician regarding methods for smoking cessation. documented in this encounter [employer] Evaluation + Plan note Future Appointments Appointment Date:05/18/2023 01:00:00 PM Scheduled Provider:Nereaj MUNOZ MD Location:[facility] Appointment Type: Post Op 15 General Surgery [facility] Evaluation note Diagnosis Abscess of left breast- Primary Abscess of right breast Tobacco abuse Tobacco use disorder documented in this encounter [facility]* Diagnosis Ganglion cyst of right foot- Primary Mass of right foot Mass of left foot Plantar fasciitis Plantar fascial fibromatosis [facility] Diagnosis Left breast abscess- Primary [facility] N[facility] No data available for this section [facility] Discharge instructions No data available for this section General Surgery [facility] InstructionsNot on filedocumented in this encounter [facility] No data available for this section General Surgery [facility] Summary Purpose Family History No Family History [...] FoundDocuments on File Type Date Recorded Patient Yarn Conditioner Expl anation Advance Directives and Livin g Will 08/29/2019 1:59 PM Documents on File Type Date Recorded Patient Yarn Conditioner Expl anation Advance Directives and Livin g Will 10/07/2019 12:14 PM Documents on File Type Date Recorded Patient Yarn Conditioner Expl anation Advance Directives and Livin g Will 10/09/2019 8:52 AM Documents on File Type Date Recorded Patient Yarn Conditioner Expl anation Advance Directives and Livin g Will 10/11/2019 8:52 AM Documents on File Type Date Recorded Patient Yarn Conditioner Expl anation Advance Directives and Livin g Will 05/21/2020 8:52 AM Documents on File Type Date Recorded Patient Yarn Conditioner Expl anation Advance Directives and Livin g Will 06/05/2020 8:52 AM Discharge Instructions * Attachments The following attachments cannot be sent through Care Everywhere. * Abdominal Pain (Japanese) * Nausea and Vomiting (Japanese) documented in this encounter* Attachments The following attachments cannot be sent through Care Everywhere. * Abscess: Skin (Japanese) documented in this encounter* Attachments The following attachments cannot be sent through Care Everywhere. * Abscess: Skin (Japanese) documented in this encounter* Attachments The following attachments cannot be sent through Care Everywhere. * Abscess: Skin (Japanese) documented in this encounter* Instructions* Ajay Duran PA-C - 05/21/2020 Stay home and away from other people. Rest, fluids, Tylenol. Return for difficulty breathing, uncontrolled fevers, or any other problems or concerns. You did test positive for COVID-19 today. * Attachments The following attachments cannot be sent through Care Everywhere. * COVID-19 SELF ISOLATION DISCHARGE INSTRUCTIONS * Coronavirus Disease (COVID-19): General Info (Japanese) documented in this encounter* Attachments The following attachments cannot be sent through Care Everywhere. * Fatigue (Japanese) * Coronavirus Disease (COVID-19): General Info (Japanese) * COVID-19: Taking Care of Yourself If You Have It: Video (Japanese) * Myalgia (Japanese) documented in this encounter Assessments Diagnosis Nausea [...] and content) DATE CREATED AUTHOR 10/10/2018 [facility] DATE CREATED AUTHOR AUTHOR'S ORGANIZ ATION 06/13/2020 [facility] DATE CREATED AUTHOR AUTHOR'S ORGANIZ ATION 10/09/2020 [facility] DATE CREATED AUTHOR AUTHOR'S ORGANIZ ATION 12/17/2021 [facility] DATE CREATED AUTHOR AUTHOR'S ORGANIZ ATION 06/07/2023 [facility] DATE CREATED AUTHOR AUTHOR'S ORGANIZ ATION 07/23/2023 [facility] DATE CREATED AUTHOR AUTHOR'S ORGANIZ ATION 04/28/2024 [facility] EPIC Reason for Visit (unrecogniz ed section and content) Reason Comments Abdominal Pain Reason Comments Abscess Reason Comments Wound Check Reason Comments No show inital appointment 01/29/2020 Reason Comments Cough Fatigue Reason Comments covid+ Headache Generalized Body Aches Reason Comments Consult Specialty Diagnoses / Procedures Referred By Contac t Referred To Contact Breast Surgery Diagnoses Abscess of right breast Darnell Nowak DO [address] [place] [address] Ann Vidal MD [address] [facility] [address] [place] [address] Referral ID Status Reason Start Date Expiration Date V isits Requested Visits Authorized [id number] Pending Review 06/23/2023 06/22/2024 1 1 Reason Comments Foot Cyst Reason Comments Follow-up Pt c/o left breast l ump that painful, red, warm to touch. Pt sates that this started about two days ago. Ajay Duran PA-Jas - 08/29/2019 1:35 PM Shannan Olsen RN - 08/29/2019 1:02 PM Shannan Olsen RN - 08/29/2019 12:59 PM Maria Elena Francis CNP - 10/07/2019 12:33 PM EDT ED Notes (unrecognized secti on and content) [facility] ED Physician Note: NAME: Shannan Carter 34 y.o. CSN: [id number] PCP: Physician No Clinical Impression: 1. Nausea [...] for 10 days . Follow-up Information 1. [facility] - Primary Care Services. Why: Recheck of todays complaint [address] [facility] [address] 2. Miguel Sarkar III, MD. Specialties: General Surgery, Interventional Radiology, Breast Surgery Why: Recheck of todays complaint [address] [facility] [address] [facility] Emergency Department. Specialty: Emergency Medicine Why: If symptoms worsen [address] [place] [address] Contact information for after-discharge care Follow-up information [...] Abnormal; Notable for the following components: Specific [place] 1.002 (*) Blood, Urine Large (*) All [...] Procedure Abnormality Status --------- ------ CBC Auto Differential[[id number]] Abnormal Final result Please view results for these tests on the individual orders. CT Abdomen Pelvis With IV Contrast Only Final Result 1. Fairly diffuse colonic wall thickening that may reflect incomplete bowel distention and spasm versus a mild colitis. There is no bowel obstruction. The appendix is normal. 2. Hepatic steatosis. Workstation ID: [id number] Procedures: Procedures ED Course/ Medical Decision Making: [...] hypertension. . Ajay Duran PA-C ED Physician Job Printer [facility] Emergency Department (Please note that portions of this note have been completed with a voice recognition software. Efforts were made to correct any errors, but occasionally words are mis-transcribed.) Ajay Duran PA-C 08/29/19 1511 Also reports that she went on an alcohol binge last weekend which flared it up. Pt reports Its my pancreas. States she is usually seen at [facility] and recently moved here, has a history of pancreatitis. documented in this encounter Associated Order(s): Incision/Drainage [facility] ED Physician Note: NAME: Shannan Carter 34 y.o. 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 Follow-up Information 1. [facility] Primary Care Services. Why: for symptom reheck [address] [facility] [address] [facility] Emergency Department. Specialty: Emergency Medicine Why: If symptoms worsen [address] [place] [address] Contact information for after-discharge care Follow-up information [...] of the left breast surrounding her area [place]. Patient reports associated drainage. Denies any fever, [...] immunocompromised or diabetic. 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 Some grammatical or spelling errors may occur using the system. ARI López, ENP-C ED Nurse Practitioner [facility] Emergency Department (Please note that portions of this note have been completed with a voice recognition software. Efforts were made to correct any errors, but occasionally words are mis-transcribed.) Maria Elena West CNP 10/07/19 1439 Patient states, I had one here before 2 or 3 years ago. Patient states, I have an abscess on my boob. documented in this encounter [facility] ED Physician Note: NAME: Shannan Carter 34 y.o. CSN: [id number] PCP: Physician No ED Course / Medical [...] Drainage from breat noted think and pus-like [facility] ED Physician Note: NAME: Shannan Carter 34 y.o. CSN: [id number] PCP: Physician No ED Course / Medical [...] does lift heavy boxes. Recommend follow-up with [facility] in a week for recheck. [...] hypertension. . This chart was documented with [employer] system. There may be spelling errors as a result. Colin Loaiza PA-C [facility] Emergency Department (Please note that portions of this note have been completed with a voice recognition software. Efforts were made to correct any errors, but occasionally words are mis-transcribed.) Colin Loaiza PA-C 10/11/19 1510 Pt into ER states I need to get the packing taken out of my boob. I don't have a family doctor so I came here. documented in this encounter [facility] ED Physician Note: NAME: Shannan Carter 35 y.o. CSN: [id number] PCP: Physician No Clinical Impression: 1. COVID-19 virus infection Disposition: Patient is being discharged to home Follow-up Information 1. [facility]. Why: Recheck of todays complaint [address] [facility] [address] [phone] [facility] Emergency Department. Specialty: Emergency Medicine Why: If symptoms worsen [address] [place] [id number] Contact information for after-discharge care Follow-up information [...] at the following links: For Healthcare Providers: https://www.fda.gov/media/105028/download For Patients: https://www.fda.gov/media/663091/download No orders to display Procedures: Procedures ED [...] hypertension. . Ajay Duran PA-C ED Physician Job Printer [facility] Emergency Department (Please note that portions of this note have been completed with a voice recognition software. Efforts were made to correct any errors, but occasionally words are mis-transcribed.) Ajay Duran PA-C 05/21/201903 Pt presents to ED with c/o cough and fatigue that started Wednesday. Pt states that she lives with someone who is positive for covid documented in this encounter [facility] ED Physician Note: NAME: Shannan Carter 35 y.o. CSN: [id number] PCP: Physician No Clinical Impression: 1. COVID-19 [...] printed (June 12 at 2 pm) [address] [place] [address] Contact information for after-discharge care Follow-up information [...] agreeable to Toradol IM, I spoke with delinquency prevention social worker who arranged for an outpatient appointment with her urgently, neuro exam is nonfocal, she is making informed decision. I discussed with the patient supportive care, signs to return to ED, infectious/neuro warning signs, follow up with pcp; questions answered; patient understands and agrees with plan; . . If patient is currently a smoker or uses a tobacco product, I did school counselor them on benefits and resources of [...] Procedures: Procedures Radha Li DO ED Physician [facility] Emergency Department Radha Li DO 06/05/20 1611 [...] vomiting Boone Resendiz MD ED Attending Physician 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 Relationship Specialty Start Date End Date Darnell Nowak DO [address] [place] [address] PCP - [facility] [employer] 03/28/23 06/27/99 Darnell Nowak DO [address] [place] [address] PCP - [facility] 03/02/24 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 [employer] [facility]. provides no warranty or guarantee of the accuracy or completeness of information in this document.
[2024-04-30 10:59] LABS: Basophils Percent Auto 0.2 % (0.2-2.0); Eosinophils Percent Auto 0.1 % (0.9-7.0); Hematocrit 43.1 % (36.0-48.0); Hemoglobin 14.8 g/dL (12.0-16.0); Immature Granulocytes Abs Auto 0.04 10^3/uL (0.00-0.03); Immature Granulocytes Pct Auto 0.4 % (0.0-0.5); Lymphocytes Absolute Auto 1.6 10^3/uL (1.2-3.8); Lymphocytes Percent Auto 14.5 % (20.5-60.0); Mean Corpuscular HGB Conc 34.3 g/dL (29.9-35.2); Mean Corpuscular Volume 90.4 fL (81.0-99.0); Mean Platelet Volume 10.9 fL (9.5-13.5); Monocytes Absolute Auto 0.4 10^3/uL (0.3-0.8); Monocytes Percent Auto 3.2 % (1.7-12.0); Neutrophils Absolute Auto 8.8 10^3/uL (1.4-6.5); Neutrophils Percent Auto 81.6 % (43.0-75.0); Platelet Count 163 10^3/uL (150-450); Red Blood Count 4.77 10^6/uL (4.20-5.40); Red Cell Distribution Width 13.9 % (11.0-15.0); White Blood Count 10.8 10^3/uL (4.0-11.0)
[2024-04-30 11:08] LABS: Alanine Aminotransferase 20 U/L (14-59); Alkaline Phosphatase 78 U/L (46-116); Anion Gap 18.6; Aspartate Amino Transferase 14 U/L (15-37); BUN Creatinine Ratio 9.7; Bilirubin Total 0.5 mg/dL (0.2-1.0); Calcium 9.5 mg/dL (8.5-10.1); Carbon Dioxide 23.5 mmol/L (21.0-32.0); Chloride 98 mmol/L (98-107); Estimated GFR (African America >60 (>=60 mL/min/1.73m^2); Estimated GFR (Non-African Ame >60 (>=60 mL/min/1.73m^2); Globulin 4.2 g/dL; Glucose 109 mg/dL (74-106); Potassium 4.1 mmol/L (3.5-5.1); Sodium 136 mmol/L (136-145); Total Protein 8.2 g/dL (6.4-8.2)
[2024-04-30 11:11] LABS: Lactate/Lactic Acid 0.8 mmol/L (0.4-2.0)
[2024-04-30] MEDS: 0.9 % SODIUM CHLORIDE 1,000 ML 500 ML IV (11:28)
[2024-04-30] MEDS: ONDANSETRON PF 4 MG/2 ML VIAL IV ×2 (11:29→19:29)
[2024-04-30] MEDS: KETOROLAC TROMETHAMINE 30 MG/ML VIAL 15 MG IVP (11:30)
[2024-04-30] MEDS: MORPHINE SULFATE 4 MG/ML VIAL 3 MG IV (11:32)
[2024-04-30] MEDS: FAMOTIDINE/PF 20 MG/2 ML VIAL IV (11:34)
[2024-04-30] MEDS: AZTREONAM 1,000 MG in 0.9 % SODIUM CHLORIDE 50 ML 100 MG IV ×2 (11:35→19:29)
[2024-04-30] MEDS: VANCOMYCIN HCL 1,000 MG in 0.9 % SODIUM CHLORIDE 250 ML 250 MG IV (12:06)
--- NOTE | 2024-04-30 12:14 | ED.GENADUL1 ---
HPI HPI - General Adult General Chief complaint: Skin/Abscess/Foreign Body Stated complaint: LUMP LEFT BREAST Time Seen by Provider: 04/30/24 10:33 Source: patient Mode of arrival: walk-in History of Present Illness HPI narrative: The patient presented as before for a breast abscess coming to us with an abscess that developed in her left breast over the last 1 week she was already evaluated by her primary care doctor started an antibiotic almost 5 days ago. She was taking clindamycin and Bactrim with no improvement She mentioned that she have some decreased p.o. intake no fever or chills over the last 24 hours She also is complaining of significant pain in the area as well as redness Related Data Previous Rx's ?Medication ?Instructions ?Recorded ibuprofen 600 mg tablet 600 mg PO Q8H PRN pain #30 tabs 05/02/23 doxycycline monohydrate 100 mg 100 mg PO BID 10 days #20 tabs 06/04/23 tablet Allergies Allergy/AdvReac Type Severity Reaction Status Date / Time Penicillins Allergy Intermediate Verified 04/29/23 10:45 Opioid HPI Opioid Management Most Recent Opioid Data: Last Pain Scale 9 04/30/24 11:32 04/30/24 Last MAR Pain Assessment 04/30/24 11:32 Review of Systems ROS Status of ROS 10 or more systems reviewed and unremarkable except as noted in history and below PFSH PFSH Medical History Tobacco dependence ?F17.200 - Nicotine dependence, unspecified, uncomplicated (ICD-10) Cellulitis of breast ?N61.0 - Mastitis without abscess (ICD-10) Breast abscess ?N61.1 - Abscess of the breast and nipple (ICD-10) Family History Father Family history of COPD (chronic obstructive pulmonary disease) Mother Family history of cancer Social History Within the past year, how often did you have a drink containing alcohol: never Score interpretation: A score less than 3 is consistent with normal alcohol consumption. 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 Known occupational exposures/hazards: No Highest level of school completed/degree received: high school graduate Do you want help with school or training: No Are you now , , , , never or living with a partner: In a typical week, how many times do you talk on the telephone with family, friends, or neighbors: 3 or more times per week How often do you get together with friends or relatives: 3 or more times per week How often do you attend mandaeism or congregation services: 4 or more times per year Do you belong to any clubs or organizations such as mandaeism groups unions, [employer] or athletic groups, or school groups: no Total score: 3 Score interpretation: A score of greater than or equal to 2 indicates the lowest level of social isolation. Little interest or pleasure in doing things: not at all Feeling down, depressed, or hopeless: not at all Feel stressed/tense/nervous/anxious/difficulty sleeping: not at all Due to disability, difficulty making decisions: No Do you think of yourself as: straight/heterosexual Gender Identity: female Exam Narrative Exam Narrative: Nurses notes and vital signs reviewed and patient is not hypoxic. :Right breast examination is benign Left breast examination showed that the patient have an area of redness almost around 10 cm diameter around the areola and the patient have multiple scarring with an area of fluctuation just beside the right side of the nipple at almost 2 by 3 cm oval in shape There is no drainage through the nipple General: Well-appearing and in no apparent distress. Skin: Warm, dry, no pallor noted. No rash. Head: Normocephalic, atraumatic. Neck: Supple, non-tender. Eye: Pupils are equal, round and EOMI. No scleral icterus. Ears, Nose, Mouth, and Throat: TM are clear, no nasal mucosal hypertrophy. Oral mucosa is moist, no posterior oropharynx erythema, uvula is mid-line Cardiovascular: Regular Rate and Rhythm without murmur, gallop or rub. Respiratory: No accessory muscle use or respiratory distress. Lungs are clear to auscultation, no wheezing, rales or rhonchi Chest Wall: no tenderness Back: No midline thoracic or lumbar vertebral tenderness. No CVA tenderness Musculoskeletal: normal ROM, no calf or popliteal tenderness, no lower extremity edema/swelling GI: Abdomen is soft, non-distended. Normal bowel sounds. No masses appreciated. No tenderness to palpation. No rebound, guarding, or rigidity noted. Neurological: A&O x4. No cranial nerve dysfunction observed. No truncal ataxia. Moves all extremities. Sensation intact. Psychiatric: Cooperative and interactive. Normal mood and affect. Constitutional Vital Signs, click to edit/add: Last Vital Signs Temp 98.4 F 04/30/24 11:56 Pulse 67 04/30/24 11:56 Resp 18 04/30/24 11:56 BP 105/73 04/30/24 11:56 Pulse Ox 96 04/30/24 11:56 O2 Del Method Room Air 04/30/24 11:56 Course Vital Signs Vital signs: Vital Signs Temperature 97.8 F 04/30/24 10:27 Pulse Rate 90 04/30/24 10:27 Respiratory Rate 20 04/30/24 10:27 Blood Pressure 146/97 H 04/30/24 10:27 Pulse Oximetry 100 04/30/24 10:27 Oxygen Delivery Method Room Air 04/30/24 10:27 Temperature 98.4 F 04/30/24 11:56 Pulse Rate 67 04/30/24 11:56 Respiratory Rate 18 04/30/24 11:56 Blood Pressure 105/73 04/30/24 11:56 Pulse Oximetry 96 04/30/24 11:56 Oxygen Delivery Method Room Air 04/30/24 11:56 Medical Decision Making [facility] Narrative Medical decision making narrative: The patient presenting again to us with a abscess in her left breast with no improvement with p.o. antibiotic After cleaning the area with Betadine the patient had the area was infiltrated with almost 10 cc of 1% lidocaine with no epinephrine and then aspirated with a large bore 18-gauge needle almost 10 cc of pus Bedside evaluation and drainage was able to drain almost 10 cc of abscess that was sent for culture Patient had a CBC chemistry as well as blood culture obtained and she was started on aztreonam and vancomycin as she was treated with the same antibiotic almost 11 months ago I spoke with the Dr. Owusu and general surgery and the patient was evaluated before by Right now since the patient will be admitted for antibiotic as well as further evaluation with improvement in case she needs general surgery she will be evaluated by Dr. Grigsby for possible surgery as he is on-call tomorrow The patient case was discussed with and he agreed on admitting the patient for further evaluation Lab Data Labs: Lab Results 04/30/24 Range/Units 10:42 WBC 10.8 (4.0-11.0) 10^3/uL RBC 4.77 (4.20-5.40) 10^6/uL Hgb 14.8 (12.0-16.0) g/dL Hct 43.1 (36.0-48.0) % MCV 90.4 (81.0-99.0) fL MCH 31.0 (26.7-34.0) pg MCHC 34.3 (29.9-35.2) g/dL RDW 13.9 (11.0-15.0) % Plt Count 163 (150-450) 10^3/uL MPV 10.9 (9.5-13.5) fL Neut % (Auto) 81.6 H (43.0-75.0) % Lymph % (Auto) 14.5 L (20.5-60.0) % Emmons % (Auto) 3.2 (1.7-12.0) % Eos % (Auto) 0.1 L (0.9-7.0) % Baso % (Auto) 0.2 (0.2-2.0) % Neut # (Auto) 8.8 H (1.4-6.5) 10^3/uL Lymph # (Auto) 1.6 (1.2-3.8) 10^3/uL Emmons # (Auto) 0.4 (0.3-0.8) 10^3/uL Eos # (Auto) 0.0 (0.0-0.7) 10^3/uL Baso # (Auto) 0.0 (0.0-0.1) 10^3/uL Abs Immat Gran (auto) 0.04 H (0.00-0.03) 10^3/uL Imm/Tot Granulo (auto) 0.4 (0.0-0.5) % Sodium 136 (136-145) mmol/L Potassium 4.1 (3.5-5.1) mmol/L Chloride 98 (98-107) mmol/L Carbon Dioxide 23.5 (21.0-32.0) mmol/L Anion Gap 18.6 BUN 9.0 (7.0-18.0) mg/dL Creatinine 0.93 (0.55-1.02) mg/dL Est GFR ( Amer) >60 (>=60 mL/min/1.73m^2) Est GFR (Non-Af Amer) >60 (>=60 mL/min/1.73m^2) BUN/Creatinine Ratio 9.7 Glucose 109 H (74-106) mg/dL Lactate 0.8 (0.4-2.0) mmol/L Calcium 9.5 (8.5-10.1) mg/dL Total Bilirubin 0.5 (0.2-1.0) mg/dL AST 14 L (15-37) U/L ALT 20 (14-59) U/L Alkaline Phosphatase 78 (46-116) U/L Total Protein 8.2 (6.4-8.2) g/dL Albumin 4.0 (3.4-5.0) g/dL Globulin 4.2 g/dL Albumin/Globulin Ratio 1.0 Discharge Plan Discharge Chief Complaint: Skin/Abscess/Foreign Body Clinical Impression: Abscess of breast, Cellulitis of breast Patient Disposition: Admitted As Inpatient Time of Disposition Decision: 12:51 Condition: Good
[2024-04-30] MEDS: LIDOCAINE HCL 1% 100 MG/10 ML MDV INJ (12:39)
--- OUTSIDE RECORDS SUMMARY | 2024-04-30 14:38 | XMS_ITS | CCD ---
Author Organization [facility] Care Team Providers Care Players Assistant Name Role Phone Jericho Barreto Attending Unavailable [...] Admitting Unavailable ELOISE PEDROIKH H Attending Unavailable DIANNE SHAW Consulting Unavailable SILVA [...] Attending Unavailable TORSTEN, SILVA Consulting Unavailable BOONE ELA Consulting Unavailable Ashlyn Potter Primary Care Physician TAMMY, Neeraj Hendrix Attending Unavailable NILL, Neeraj Hendrix Attending Unavailable NILL, Neeraj Hendrix Attending Unavailable Unavailable Primary Care Provider UnavailANN Talley Attending Unavailable CUTLERDARNELL L Referring Unavailable Jefferson DO, Darnell L Unavailable Jefferson DO, Darnell L Primary Care Provider DARNELL [...] Penicillins; Translations: [PENICILLINS] Drug allergy (disorder) [facility] Repository (5 sources) Penicillin; Translations: [penicillin] Drug Allergy [facility] Repository (3 sources) Tape 1 Propensity to adverse reactions to substance Redness, Itching [facility] Comment on above: plastic tape (1 source) Adhesive Tape; Translations: [Tape] Propensity to adverse reactions (disorder) [facility] Repository (6 sources) Penicillins Drug Intolerance 3 [...] Range Facility [facility] 06-07-2023 Lab Reports [id number]#1 .00TIFF Normal [facility] 06-05-2023 Lab Reports [id number] .00TIFF Normal [facility] 06-04-2023 Lab Reports [id number] .00TIFF [facility] Lab Reports [id number] 2 [id number] .00TIFF [facility] Ambulatory Visit Summaryon 1 [...] for choosing us for your care. Normal [facility] General Surgery Office/Clini c Noteon 05-18-2023 General Surgery Office/Clinic Note Chief Complaint post operative follow up HPI Staff 18 day post operative follow up post I/D left breast abscess. Completing daily dressing changes at [facility]. Reports moderate intermittent discomfort, taking Ibuprofen 800mg [...] - Not Given Patient Refuses Normal [facility] Comment on above: Result Comment: Elec tronically [...] dressing changes daily at infusion center at [facility]; completed course of antibiotics; taking ibuprofen as [...] revision if areolar skin remains retracted. Orders: [facility] Prescription, daily dressing change, Complete daily damp [...] inactivated - Not Given Patient Refuses Normal [facility] Comment on above: Result Comment: Elec [...] for choosing us for your care. Normal [facility] 05-11-2023 Lab Reports [id number]. 00TIFF Normal [facility] Pathology Noteon 05-10-2023 Pathology Note [id number]#1 .00TIFF Normal [facility] Consultation Noteon 05-05-20 Consultation Note [id number]#1 .00TIFF Normal [facility] Consultation Note [id number]#1 .00TIFF Normal [facility] Operative Reporton Operative Report [id number]#1 .00TIFF Normal [facility] Consultation Noteon 05-04-20 Consultation Note [id number] .00TIFF Normal [facility] ED Note-Physicianon 05-04-20 ED Note-Physician [id number]#1 .00TIFF Normal [facility] ED Note-Physician [id number]#1 .00TIFF Normal [facility] AMMONIAon 10-12-2021 Ammonia (P) [Moles/Vol] 21 umol/L Normal 11-32 [facility] Comment on above: Performed By: #### P TT, PT #### [facility] [address] [place] [address] Dr. Celi Guerin AMYLASEon 10-12-2021 Amylase [Catalytic activity/Vol] 535 U/L Critically high 25-115 [facility] Comment on above: Result Comment: repe ated Performed By: #### C MP, LIPA, ASHLYN #### [facility] [address] [place] [address] Dr. Celi Guerin CBC AUTO DIFFon 10-12-2021 BASO # 0.0 103/ul Normal 0.0-0.1 [facility] Comment on above: Performed By: #### P TT, PT #### [facility] [address] [place] [address] Dr. Celi Guerin Basophils/100 WBC (Bld) 0.1 % Critically low 0.2-2.[address] [facility] Comment on above: Performed By: #### P TT, PT #### [facility] [address] [place] [address] Dr. Celi Guerin EO # 0.0 103/ul Normal 0.0-0.[address] [facility] Comment on above: Performed By: #### P TT, PT #### [facility] [address] [place] [address] Dr. Celi Guerin Eosinophils/100 WBC (Bld) 0.4 % Critically low 0.9-7.[address] [facility] Comment on above: Performed By: #### P TT, PT #### [facility] [address] [place] [address] Dr. Celi Guerin Erythrocyte distribution width (RBC) [Ratio] 18.6 % Critically high 11.0-15.0 [facility] Comment on above: Performed By: #### P TT, PT #### [facility] [address] [place] [address] Dr. Celi Guerin Hematocrit (Bld) [Volume fraction] 29.3 % Critically low 36.0-48.[address] [facility] Comment on above: Performed By: #### P TT, PT #### [facility] [address] [address] [address] Celi Guerin Hemoglobin (Bld) [Mass/Vol] 9.4 g/dL Critically low 12.0-16.0 [facility] Comment on above: Performed By: #### P TT, PT #### [facility] [address] [place] [address] Dr. Celi Guerin IG # 0.04 10e3/ul Critically high 0.00-0.03 [facility] Comment on above: Performed By: #### P TT, PT #### [facility] [address] [place] [address] Dr. Celi Guerin IG % 0.5 % Normal 0.0-0.[address] [facility] Comment on above: Performed By: #### P TT, PT #### [facility] [address] [place] [address] Dr. Celi Guerin LYMPH # 1.1 103/ul Critically low 1.2-3.8 [facility] Comment on above: Performed By: #### P TT, PT #### [facility] [address] [place] [address] Dr. Celi Guerin Lymphocytes/100 WBC (Bld) 14.2 % Critically low 20.5-60.[address] [facility] Comment on above: Performed By: #### P TT, PT #### [facility] [address] [place] [address] Dr. Celi Guerin MANUAL DIFF REQ NO Normal [facility] Comment on above: Performed By: #### P TT, PT #### [facility] [address] [place] [address] Dr. Celi Guerin MCH (RBC) [Entitic mass] 25.8 pg Critically low 26.7-34.0 [facility] Comment on above: Performed By: #### P TT, PT #### [facility] [address] [place] [address] Dr. Celi Guerin MCHC (RBC) [Mass/Vol] 32.1 g/dL Normal 29.9-35.2 [facility] Comment on above: Performed By: #### P TT, PT #### [facility] [address] [place] [address] Dr. Celi Guerin MCV (RBC) [Entitic vol] 80.5 fL Critically low 81.0-99.[address] [facility] Comment on above: Performed By: #### P TT, PT #### [facility] [address] [place] [address] Dr. Celi Guerin MONO # 0.7 103/ul Normal 0.3-0.8 [facility] Comment on above: Performed By: #### P TT, PT #### [facility] [address] [place] [address] Dr. Celi Guerin Monocytes/100 WBC (Bld) 8.4 % Normal 1.7-12.[address] [facility] Comment on above: Performed By: #### P TT, PT #### [facility] [address] [place] [address] Dr. Celi Guerin NEUT # 5.9 103/ul Normal 1.4-6.[address] [facility] Comment on above: Performed By: #### P TT, PT #### [facility] [address] [place] [address] Dr. Celi Guerin Neutrophils/100 WBC (Bld) 76.4 % Critically high 43.0-75.0 [facility] Comment on above: Performed By: #### P TT, PT #### [facility] [address] [place] [address] Dr. Celi Guerin PLT 63 103/ul Critically low 150-450 [facility] Comment on above: Performed By: #### P TT, PT #### [facility] [address] [place] [address] Dr. Celi Guerin RBC 3.64 106/ul Critically low 4.20-5.[address] [facility] Comment on above: Performed By: #### P TT, PT #### [facility] [address] [place] [address] Dr. Celi Guerin WBC 7.8 103/ul Normal 4.0-11.0 [facility] Comment on above: Performed By: #### P TT, PT #### [facility] [address] [place] [address] Dr. Celi Guerin LIPASEon 10-12-2021 Lipase [Catalytic activity/Vol] U/L Critically high 23.0-300.[address] [facility] Comment on above: Result Comment: repe ated Performed By: #### E SAMEERFLORMEMO #### [facility] [address] [place] [address] Dr. Celi Guerin PROF 14(COMP METB)on 022 Albumin [Mass/Vol] 2.9 g/dL Critically low 3.4-5.0 [facility] Comment on above: Performed By: #### C ANTWAN LIPA, ASHLYN #### [facility] [address] [place] [address] Dr. Celi Guerin Albumin/Globulin [Mass ratio] 1.0 {ratio} Normal [facility] Comment on above: Performed By: #### C MP LIPA, ASHLYN #### [facility] [address] [place] [address] Dr. Celi Guerin ALP [Catalytic activity/Vol] 88 U/L Normal 46-[address] [facility] Comment on above: Performed By: #### C MP LIPA, ASHLYN #### [facility] [address] [place] [address] Dr. Celi Guerin ALT [Catalytic activity/Vol] 34 U/L Normal 14-[address] [facility] Comment on above: Performed By: #### C MP LIPA, ASHLYN #### [facility] [address] [place] [address] Dr. Celi Guerin Anion gap [Moles/Vol] 12.9 mmol/L Normal [facility] Comment on above: Performed By: #### C MP LIPA, ASHLYN #### [facility] [address] [place] [address] Dr. Celi Guerin AST [Catalytic activity/Vol] 70 U/L Critically high 15-[address] [facility] Comment on above: Performed By: #### C MP, LIPA, ASHLYN #### [facility] [address] [place] [address] Dr. Celi Guerin Bilirubin [Mass/Vol] 1.2 mg/dL Normal 0.2-1.[address] [facility] Comment on above: Performed By: #### C PRIYANKA MONCADAA, ASHLYN #### [facility] [address] [address] [address] Celi Guerin Calcium [Mass/Vol] 7.4 mg/dL Critically low 8.5-10.1 [facility] Comment on above: Performed By: #### C ANTWAN LIPA, ASHLYN #### [facility] [address] [address] [address] Celi Guerin Chloride [Moles/Vol] 98 mmol/L Normal 98-[address] [facility] Comment on above: Performed By: #### C ANTWAN LIPA, ASHLYN #### [facility] [address] [place] [address] Dr. Celi Guerin CO2 [Moles/Vol] 23.9 mmol/L Normal 22.0-30.0 [facility] Comment on above: Performed By: #### C ANTWAN LIPA, ASHLYN #### [facility] [address] [place] [address] Dr. Celi Guerin Creatinine [Mass/Vol] 0.41 mg/dL Critically low 0.52-1.[address] [facility] Comment on above: Performed By: #### C PRIYANKA MONCADAA, ASHLYN #### [facility] [address] [place] [address] Dr. Celi Guerin EGFR-AF HONG KONGER >60 Normal >=60 [facility] Comment on above: Performed By: #### C MP LIPA, ASHLYN #### [facility] [address] [place] [address] Dr. Celi Guerin EGFR-NON AF [place]ER >60 Normal >=[address] [facility] Comment on above: Performed By: #### C MP LIPA, ASHLYN #### [facility] [address] [place] [address] Dr. Celi Guerin Globulin (S) [Mass/Vol] 2.9 g/dL Normal [facility] Comment on above: Performed By: #### C MP, LIPA, ASHLYN #### [facility] [address] [place] [address] Dr. Celi Guerin Glucose [Mass/Vol] 82 mg/dL Normal 74-106 [facility] Comment on above: Performed By: #### C ANTWAN LIPA, ASHLYN #### [facility] [address] [address] [address] Celi Guerin Potassium [Moles/Vol] 2.8 mmol/L Critically low 3.4-5.[address] [facility] Comment on above: Result Comment: repe ated Performed By: #### C MP LIPA, ASHLYN #### [facility] [address] [place] [address] Dr. Celi Guerin Protein [Mass/Vol] 5.8 g/dL Critically low 6.1-8.2 [facility] Comment on above: Performed By: #### C ANTWAN LIPA, ASHLYN #### [facility] [address] [place] [address] Dr. Celi Guerin Sodium [Moles/Vol] 131 mmol/L Critically low 137-145 [facility] Comment on above: Performed By: #### C ANTWAN LIPA, ASHLYN #### [facility] [address] [place] [address] Dr. Celi Guerin Urea nitrogen [Mass/Vol] 2.0 mg/dL Critically low 7.0-18.[address] [facility] Comment on above: Performed By: #### C ANTWAN LIPA, ASHLYN #### [facility] [address] [place] [address] Dr. Celi Guerin Urea nitrogen/Creatinine [Mass ratio] 4.9 mg/mg Normal [facility] Comment on above: Performed By: #### C ANTWAN LIPA, ASHLYN #### [facility] [address] [place] [address] Dr. Celi Guerin AMMONIAon 10-11-2021 Ammonia (P) [Moles/Vol] 23 umol/L Normal 11-[address] [facility] Comment on above: Performed By: #### D RUGRPD #### [facility] [address] [place] [address] Dr. Celi Guerin AMYLASEon 10-11-2021 Amylase [Catalytic activity/Vol] 1078 U/L Critically high 25-[address] [facility] Comment on above: Result Comment: repe ated Performed By: #### D RUGRPD #### [facility] [address] [place] [address] Dr. Celi Guerin CBC AUTO DIFFon 10-11-2021 BASO # 0.0 103/ul Normal 0.0-0.[address] [facility] Comment on above: Performed By: #### P TT, PT #### [facility] [address] [place] [address] Dr. Celi Guerin Basophils/100 WBC (Bld) 0.1 % Critically low 0.2-2.[address] [facility] Comment on above: Performed By: #### P TT, PT #### [facility] [address] [place] [address] Dr. Celi Guerin EO # 0.0 103/ul Normal 0.0-0.[address] [facility] Comment on above: Performed By: #### P TT, PT #### [facility] [address] [place] [address] Dr. Celi Guerin Eosinophils/100 WBC (Bld) 0.1 % Critically low 0.9-7.0 [facility] Comment on above: Performed By: #### P TT, PT #### [facility] [address] [place] [address] Dr. Celi Guerin Erythrocyte distribution width (RBC) [Ratio] 18.5 % Critically high 11.0-15.0 [facility] Comment on above: Performed By: #### P TT, PT #### [facility] [address] [place] [address] Dr. Celi Guerin Hematocrit (Bld) [Volume fraction] 33.2 % Critically low 36.0-48.0 [facility] Comment on above: Performed By: #### P TT, PT #### [facility] [address] [place] [address] Dr. Celi Guerin Hemoglobin (Bld) [Mass/Vol] 10.5 g/dL Critically low 12.0-16.0 [facility] Comment on above: Performed By: #### P TT, PT #### [facility] [address] [place] [address] Dr. Celi Guerin IG # 0.03 10e3/ul Normal 0.00-0.[address] [facility] Comment on above: Performed By: #### P TT, PT #### [facility] [address] [address] [address] Celi Guerin IG % 0.4 % Normal 0.0-0.[address] [facility] Comment on above: Performed By: #### P TT, PT #### [facility] [address] [address] [address] Celi Guerin LYMPH # 0.8 103/ul Critically low 1.2-3.8 [facility] Comment on above: Performed By: #### P TT, PT #### [facility] [address] [place] [address] Dr. Celi Guerin Lymphocytes/100 WBC (Bld) 10.6 % Critically low 20.5-60.[address] [facility] Comment on above: Performed By: #### P TT, PT #### [facility] [address] [place] [address] Dr. Celi Guerin MANUAL DIFF REQ NO Normal [facility] Comment on above: Performed By: #### P TT, PT #### [facility] [address] [place] [address] Dr. Celi Guerin MCH (RBC) [Entitic mass] 25.9 pg Critically low 26.7-34.[address] [facility] Comment on above: Performed By: #### P TT, PT #### [facility] [address] [place] [address] Dr. Celi Guerin MCHC (RBC) [Mass/Vol] 31.6 g/dL Normal 29.9-35.[address] [facility] Comment on above: Performed By: #### P TT, PT #### [facility] [address] [place] [address] Dr. Celi Guerin MCV (RBC) [Entitic vol] 82.0 fL Normal 81.0-99.[address] [facility] Comment on above: Performed By: #### P TT, PT #### [facility] [address] [place] [address] Dr. Celi Guerin MONO # 0.4 103/ul Normal 0.3-0.[address] [facility] Comment on above: Performed By: #### P TT, PT #### [facility] [address] [place] [address] Dr. Celi Guerin Monocytes/100 WBC (Bld) 5.6 % Normal 1.7-12.[address] [facility] Comment on above: Performed By: #### P TT, PT #### [facility] [address] [place] [address] Dr. Celi Guerin NEUT # 6.4 103/ul Normal 1.4-6.[address] [facility] Comment on above: Performed By: #### P TT, PT #### [facility] [address] [place] [address] Dr. Celi Guerin Neutrophils/100 WBC (Bld) 83.2 % Critically high 43.0-75.[address] [facility] Comment on above: Performed By: #### P TT, PT #### [facility] [address] [place] [address] Dr. Celi Guerin Platelet mean volume (Bld) [Entitic vol] 11.9 fL Normal 9.5-13.[address] [facility] Comment on above: Performed By: #### P TT, PT #### [facility] [address] [place] [address] Dr. Celi Guerin PLT 59 103/ul Critically low 150-450 [facility] Comment on above: Performed By: #### P TT, PT #### [facility] [address] [place] [address] Dr. Celi Guerin RBC 4.05 106/ul Critically low 4.20-5.40 [facility] Comment on above: Performed By: #### P TT, PT #### [facility] [address] [place] [address] Dr. Celi Guerin WBC 7.7 103/ul Normal 4.0-11.[address] [facility] Comment on above: Performed By: #### P TT, PT #### [facility] [address] [address] [address] ABD/PELVIS WO CONon [...] RADHA RINALDI Date: 2021-10-11 09:36 Normal [facility] CT HEAD WO CONon 10-11-2021 CT [...] OSMIN MICHAEL Date: 2021-10-11 09:38 Normal [facility] LIPASEon 10-11-2021 Lipase [Catalytic activity/Vol] U/L Critically high 23.0-300.0 [facility] Comment on above: Result Comment: repe ated Performed By: #### D RUGRPD #### [facility] [address] [place] [address] Dr. Celi Guerin MAGNESIUMon 10-11-2021 Magnesium [Mass/Vol] 1.7 mg/dL Normal 1.6-2.3 [facility] Comment on above: Performed By: #### P TT, PT #### [facility] [address] [place] [address] Dr. Celi Guerin PHOSPHORUSon 10-11-2021 Phosphate [Mass/Vol] 1.5 mg/dL Critically low 2.5-4.[address] [facility] Comment on above: Performed By: #### P TT, PT #### [facility] [address] [place] [address] Dr. Celi Guerin PROF 14(COMP METB)on 022 Albumin [Mass/Vol] 3.0 g/dL Critically low 3.4-5.0 [facility] Comment on above: Performed By: #### P TT, PT #### [facility] [address] [place] [address] Dr. Celi Guerin Albumin/Globulin [Mass ratio] 1.0 {ratio} Normal [facility] Comment on above: Performed By: #### P TT, PT #### [facility] [address] [place] [address] Dr. Celi Guerin ALP [Catalytic activity/Vol] 78 U/L Normal 46-116 [facility] Comment on above: Performed By: #### P TT, PT #### [facility] [address] [place] [address] Dr. Celi Guerin ALT [Catalytic activity/Vol] 31 U/L Normal 14-[address] [facility] Comment on above: Performed By: #### P TT, PT #### [facility] [address] [place] [address] Dr. Celi Guerin Anion gap [Moles/Vol] 16.8 mmol/L Normal [facility] Comment on above: Performed By: #### P TT, PT #### [facility] [address] [place] [address] Dr. Celi Guerin AST [Catalytic activity/Vol] 48 U/L Critically high 15-[address] [facility] Comment on above: Performed By: #### P TT, PT #### [facility] [address] [place] [address] Dr. eCli Guerin Bilirubin [Mass/Vol] 1.1 mg/dL Normal 0.2-1.[address] [facility] Comment on above: Performed By: #### P TT, PT #### [facility] [address] [place] [address] Dr. Celi Guerin Calcium [Mass/Vol] 7.6 mg/dL Critically low 8.5-10.1 [facility] Comment on above: Performed By: #### P TT, PT #### [facility] [address] [place] [address] Dr. Celi Guerin Chloride [Moles/Vol] 97 mmol/L Critically low 98-[address] [facility] Comment on above: Performed By: #### P TT, PT #### [facility] [address] [place] [address] Dr. Celi Guerin CO2 [Moles/Vol] 22.3 mmol/L Normal 22.0-30.0 [facility] Comment on above: Performed By: #### P TT, PT #### [facility] [address] [place] [address] Dr. Celi Guerin Creatinine [Mass/Vol] 0.39 mg/dL Critically low 0.52-1.[address] [facility] Comment on above: Performed By: #### P TT, PT #### [facility] [address] [place] [address] Dr. Celi Guerin EGFR-AF [place]ER >60 Normal >=60 [facility] Comment on above: Performed By: #### P TT, PT #### [facility] [address] [address] [address] Celi Guerin EGFR-NON AF [place]ER >60 Normal >=[address] [facility] Comment on above: Performed By: #### P TT, PT #### [facility] [address] [address] [address] Celi Guerin Globulin (S) [Mass/Vol] 3.1 g/dL Normal [facility] Comment on above: Performed By: #### P TT, PT #### [facility] [address] [address] [address] Celi Guerin Glucose [Mass/Vol] 63 mg/dL Critically low 74-106 [facility] Comment on above: Performed By: #### P TT, PT #### [facility] [address] [address] [address] Celi Guerin Potassium [Moles/Vol] 3.1 mmol/L Critically low 3.4-5.[address] [facility] Comment on above: Performed By: #### P TT, PT #### [facility] [address] [place] [address] Dr. Celi Guerin Protein [Mass/Vol] 6.1 g/dL Normal 6.1-8.2 [facility] Comment on above: Performed By: #### P TT, PT #### [facility] [address] [place] [address] Dr. Celi Guerin Sodium [Moles/Vol] 133 mmol/L Critically low 137-145 [facility] Comment on above: Performed By: #### P TT, PT #### [facility] [address] [address] [address] Celi Guerin Urea nitrogen [Mass/Vol] 3.0 mg/dL Critically low 7.0-18.[address] [facility] Comment on above: Performed By: #### P TT, PT #### [facility] [address] [address] [address] Celi Guerin Urea nitrogen/Creatinine [Mass ratio] 7.7 mg/mg Normal [facility] Comment on above: Performed By: #### P TT, PT #### [facility] [address] [place] [address] Dr. eCli Guerin AMMONIAon 10-10-2021 Ammonia (P) [Moles/Vol] 39 umol/L Critically high 11-32 [facility] Comment on above: Performed By: #### E YURI ESTRELLARO #### [facility] [address] [place] [address] Dr. Celi Guerin AMYLASEon 10-10-2021 Amylase [Catalytic activity/Vol] 892 U/L Critically high 25-115 [facility] Comment on above: Result Comment: Test Repeated. Critical ValueVerified Performed By: #### D RUGRPD #### [facility] [address] [place] [address] Dr. Celi Guerin CBC AUTO DIFFon 10-10-2021 BASO # 0.0 103/ul Normal 0.0-0.[address] [facility] Comment on above: Performed By: #### P TT, PT #### [facility] [address] [place] [address] Dr. Celi Guerin Basophils/100 WBC (Bld) 0.2 % Normal 0.2-2.[address] [facility] Comment on above: Performed By: #### P TT, PT #### [facility] [address] [place] [address] Dr. Celi Guerin EO # 0.0 103/ul Normal 0.0-0.7 [facility] Comment on above: Performed By: #### P TT, PT #### [facility] [address] [place] [address] Dr. Celi Guerin Eosinophils/100 WBC (Bld) 0.0 % Critically low 0.9-7.0 [facility] Comment on above: Performed By: #### P TT, PT #### [facility] [address] [place] [address] Dr. Celi Guerin Erythrocyte distribution width (RBC) [Ratio] 18.2 % Critically high 11.0-15.0 [facility] Comment on above: Performed By: #### P TT, PT #### [facility] [address] [place] [address] Dr. Celi Guerin Hematocrit (Bld) [Volume fraction] 32.8 % Critically low 36.0-48.[address] [facility] Comment on above: Performed By: #### P TT, PT #### [facility] [address] [place] [address] Dr. Celi Guerin Hemoglobin (Bld) [Mass/Vol] 10.2 g/dL Critically low 12.0-16.[address] [facility] Comment on above: Performed By: #### P TT, PT #### [facility] [address] [place] [address] Dr. Celi Guerin IG # 0.04 10e3/ul Critically high 0.00-0.03 [facility] Comment on above: Performed By: #### P TT, PT #### [facility] [address] [place] [address] Dr. Celi Guerin IG % 0.7 % Critically high 0.0-0.5 [facility] Comment on above: Performed By: #### P TT, PT #### [facility] [address] [place] [address] Dr. Celi Guerin LYMPH # 0.9 103/ul Critically low 1.2-3.8 [facility] Comment on above: Performed By: #### P TT, PT #### [facility] [address] [place] [address] Dr. Celi Guerin Lymphocytes/100 WBC (Bld) 15.4 % Critically low 20.5-60.0 [facility] Comment on above: Performed By: #### P TT, PT #### [facility] [address] [place] [address] Dr. Celi Guerin MANUAL DIFF REQ NO Normal [facility] Comment on above: Performed By: #### P TT, PT #### [facility] [address] [place] [address] Dr. Celi Guerin MCH (RBC) [Entitic mass] 26.0 pg Critically low 26.7-34.[address] [facility] Comment on above: Performed By: #### P TT, PT #### [facility] [address] [place] [address] Dr. Celi Guerin MCHC (RBC) [Mass/Vol] 31.1 g/dL Normal 29.9-35.[address] [facility] Comment on above: Performed By: #### P TT, PT #### [facility] [address] [place] [address] Dr. Celi Guerin MCV (RBC) [Entitic vol] 83.5 fL Normal 81.0-99.0 [facility] Comment on above: Performed By: #### P TT, PT #### [facility] [address] [place] [address] Dr. Celi Guerin MONO # 0.4 103/ul Normal 0.3-0.[address] [facility] Comment on above: Performed By: #### P TT, PT #### [facility] [address] [place] [address] Dr. Celi Guerin Monocytes/100 WBC (Bld) 7.5 % Normal 1.7-12.[address] [facility] Comment on above: Performed By: #### P TT, PT #### [facility] [address] [place] [address] Dr. Celi Guerin NEUT # 4.5 103/ul Normal 1.4-6.[address] [facility] Comment on above: Performed By: #### P TT, PT #### [facility] [address] [place] [address] Dr. Celi Guerin Neutrophils/100 WBC (Bld) 76.2 % Critically high 43.0-75.0 [facility] Comment on above: Performed By: #### P TT, PT #### [facility] [address] [place] [address] Dr. Celi Guerin Platelet mean volume (Bld) [Entitic vol] 10.6 fL Normal 9.5-13.5 [facility] Comment on above: Performed By: #### P TT, PT #### [facility] [address] [place] [address] Dr. Celi Guerin PLT 53 103/ul Critically low 150-450 [facility] Comment on above: Performed By: #### P TT, PT #### [facility] [address] [address] [address] Celi Guerin RBC 3.93 106/ul Critically low 4.20-5.40 [facility] Comment on above: Performed By: #### P TT, PT #### [facility] [address] [address] [address] Celi Guerin WBC 5.9 103/ul Normal 4.0-11.[address] [facility] Comment on above: Performed By: #### P TT, PT #### [facility] [address] [place] [address] Dr. Celi Guerin DRUG SCREEN RAPID (URINE)on 10-10-2021 AMP Negative Normal NEGATIVE [facility] Comment on above: Performed By: #### D RUGRPD #### [facility] [address] [place] [address] Dr. Celi Guerin BAR Positive Abnormal NEGATIVE [facility] Comment on above: Performed By: #### D RUGRPD #### [facility] [address] [place] [address] Dr. Celi Guerin BUP Negative Normal NEGATIVE [facility] Comment on above: Performed By: #### D RUGRPD #### [facility] [address] [place] [address] Dr. Celi Guerin BZO Positive Abnormal NEGATIVE [facility] Comment on above: Performed By: #### D RUGRPD #### [facility] [address] [place] [address] Dr. Celi Guerin REED Negative Normal NEGATIVE [facility] Comment on above: Performed By: #### D RUGRPD #### [facility] [address] [place] [address] Dr. Celi Guerin CUT-OFFS SEE BELOW Normal [facility] Comment on above: Result Comment: AMP [...] ng/mL Performed By: #### D RUGRPD #### [facility] [address] [place] [address] Dr. Celi Guerin DRUG CUT HEADER DRUG CLASS TEST SYSTEM CUT-OFF CONCENTRATIONS ARE FOLLOWS: Normal [facility] Comment on above: Performed By: #### D RUGRPD #### [facility] [address] [place] [address] Dr. Celi Guerin mAMP Negative Normal NEGATIVE [facility] Comment on above: Performed By: #### D RUGRPD #### [facility] [address] [place] [address] Dr. Celi Guerin MTD Negative Normal NEGATIVE [facility] Comment on above: Performed By: #### D RUGRPD #### [facility] [address] [place] [address] Dr. Celi Guerin OPI Positive Abnormal NEGATIVE [facility] Comment on above: Performed By: #### D RUGRPD #### [facility] [address] [place] [address] Dr. Celi Guerin OXY Negative Normal NEGATIVE [facility] Comment on above: Performed By: #### D RUGRPD #### [facility] [address] [place] [address] Dr. Celi Guerin PCP Negative Normal NEGATIVE [facility] Comment on above: Performed By: #### D RUGRPD #### [facility] [address] [place] [address] Dr. Celi Guerin PPX Negative Normal NEGATIVE [facility] Comment on above: Performed By: #### D RUGRPD #### [facility] [address] [place] [address] Dr. Celi Guerin TCA Negative Normal NEGATIVE [facility] Comment on above: Performed By: #### D RUGRPD #### [facility] [address] [place] [address] Dr. Celi Guerin THC Positive Abnormal NEGATIVE [facility] Comment on above: Performed By: #### D RUGRPD #### [facility] [address] [place] [address] Dr. Celi Guerin ER URINE PROFILEon 2 Bilirubin Ql (U) Negative Normal NEGATIVE [facility] Comment on above: Performed By: #### P TT, PT #### [facility] [address] [place] [address] Dr. Celi Guerin Clarity (U) CLEAR Normal CLEAR [facility] Comment on above: Performed By: #### P TT, PT #### [facility] [address] [place] [address] Dr. Celi Guerin Color (U) YELLOW Normal YELLOW [facility] Comment on above: Performed By: #### P TT, PT #### [facility] [address] [place] [address] Dr. Celi LUCAS A micrscopic examination will be performed if indicated. Normal [facility] Comment on above: Performed By: #### P TT, PT #### [facility] [address] [place] [address] Dr. Celi Guerin Glucose Ql (U) Negative Normal NEGATIVE [facility] Comment on above: Performed By: #### P TT, PT #### [facility] [address] [place] [address] Dr. Celi Guerin Hemoglobin Ql (U) MODERATE Abnormal NEGATIVE [facility] Comment on above: Performed By: #### P TT, PT #### [facility] [address] [place] [address] Dr. Celi Guerin Ketones Ql (U) 15 mg/dl Abnormal NEGATIVE [facility] Comment on above: Performed By: #### P TT, PT #### [facility] [address] [place] [address] Dr. Celi Guerin LEUKOCYTES Negative Normal NEGATIVE [facility] Comment on above: Performed By: #### P TT, PT #### [facility] [address] [place] [address] Dr. Celi Guerin Nitrite Ql (U) Negative Normal NEGATIVE [facility] Comment on above: Performed By: #### P TT, PT #### [facility] [address] [place] [address] Dr. Celi Guerin pH (U) 6.0 [pH] Normal 5-[address] [facility] Comment on above: Performed By: #### P TT, PT #### [facility] [address] [place] [address] Dr. Celi Guerin Protein (U) [Mass/Vol] 30 mg/dL Abnormal NEGATIVE/ TRACE [facility] Comment on above: Performed By: #### P TT, PT #### [facility] [address] [place] [address] Dr. Celi Guerin SPEC GRAVITY 1.025 Normal 1.005-<=1.025 [facility] Comment on above: Performed By: #### P TT, PT #### [facility] [address] [place] [address] Dr. Celi Guerin UR MICRO IND INDICATED Normal [facility] Comment on above: Performed By: #### P TT, PT #### [facility] [address] [place] [address] Dr. Celi Guerin Urobilinogen Qn (U) 0.2 {Irland[place]'U}/dL Normal 0.2 - 1. [address] [facility] Comment on above: Performed By: #### P TT, PT #### [facility] [address] [place] [address] Dr. Celi Guerin LIPASEon 10-10-2021 Lipase [Catalytic activity/Vol] U/L Critically high 23.0-300.[address] [facility] Comment on above: Performed By: #### D RUGRPD #### [facility] [address] [place] [address] Dr. Celi Guerin PROF 14(COMP METB)on 022 Albumin [Mass/Vol] 3.4 g/dL Normal 3.4-5.0 [facility] Comment on above: Performed By: #### D RUGRPD #### [facility] [address] [address] [address] Celi Guerin Albumin/Globulin [Mass ratio] 1.1 {ratio} Normal [facility] Comment on above: Performed By: #### D RUGRPD #### [facility] [address] [address] [address] Celi Guerin ALP [Catalytic activity/Vol] 81 U/L Normal 46-[address] [facility] Comment on above: Performed By: #### D RUGRPD #### [facility] [address] [address] [address] Celi Guerin ALT [Catalytic activity/Vol] 36 U/L Normal 14-[address] [facility] Comment on above: Performed By: #### D RUGRPD #### [facility] [address] [address] [address] Celi Guerin Anion gap [Moles/Vol] 13.4 mmol/L Normal [facility] Comment on above: Performed By: #### D RUGRPD #### [facility] [address] [address] [address] Celi Guerin AST [Catalytic activity/Vol] 53 U/L Critically high 15-[address] [facility] Comment on above: Performed By: #### D RUGRPD #### [facility] [address] [address] [address] Celi Guerin Bilirubin [Mass/Vol] 1.1 mg/dL Normal 0.2-1.[address] [facility] Comment on above: Performed By: #### D RUGRPD #### [facility] [address] [address] [address] Celi Guerin Calcium [Mass/Vol] 7.7 mg/dL Critically low 8.5-10.1 [facility] Comment on above: Performed By: #### D RUGRPD #### [facility] [address] [address] [address] Celi Guerin Chloride [Moles/Vol] 98 mmol/L Normal 98-107 [facility] Comment on above: Performed By: #### D RUGRPD #### [facility] [address] [address] [address] Celi Guerin CO2 [Moles/Vol] 27.3 mmol/L Normal 22.0-30.0 [facility] Comment on above: Performed By: #### D RUGRPD #### [facility] [address] [address] [address] Celi Guerin Creatinine [Mass/Vol] 0.38 mg/dL Critically low 0.52-1.[address] [facility] Comment on above: Performed By: #### D RUGRPD #### [facility] [address] [address] [address] Celi Guerin EGFR-AF [place]ER >60 Normal >=60 [facility] Comment on above: Performed By: #### D RUGRPD #### [facility] [address] [address] [address] Celi Guerin EGFR-NON AF [place]ER >60 Normal >=[address] [facility] Comment on above: Performed By: #### D RUGRPD #### [facility] [address] [address] [address] Celi Guerin Globulin (S) [Mass/Vol] 3.1 g/dL Normal [facility] Comment on above: Performed By: #### D RUGRPD #### [facility] [address] [address] [address] Celi Guerin Glucose [Mass/Vol] 94 mg/dL Normal 74-106 [facility] Comment on above: Performed By: #### D RUGRPD #### [facility] [address] [address] [address] Celi Guerin Potassium [Moles/Vol] 3.7 mmol/L Normal 3.4-5.0 [facility] Comment on above: Performed By: #### D RUGRPD #### [facility] [address] [address] [address] Celi Guerin Protein [Mass/Vol] 6.5 g/dL Normal 6.1-8.2 [facility] Comment on above: Performed By: #### D RUGRPD #### [facility] [address] [address] [address] Celi Guerin Sodium [Moles/Vol] 135 mmol/L Critically low 137-145 [facility] Comment on above: Performed By: #### D RUGRPD #### [facility] [address] [address] [address] Celi Guerin Urea nitrogen [Mass/Vol] 6.0 mg/dL Critically low 7.0-18.[address] [facility] Comment on above: Performed By: #### D RUGRPD #### [facility] [address] [place] [address] Dr. Celi Guerin Urea nitrogen/Creatinine [Mass ratio] 15.8 mg/mg Normal [facility] Comment on above: Performed By: #### D RUGRPD #### [facility] [address] [place] [address] Dr. Celi Guerin URINE MICROSCOPIC ONLYon BACTERIA TRACE Abnormal NONE SEEN [facility] Comment on above: Performed By: #### P TT, PT #### [facility] [address] [place] [address] Dr. Celi Guerin Bacteria identified Cx Nom (U) NOT INDICATED Normal [facility] Comment on above: Performed By: #### P TT, PT #### [facility] [address] [place] [address] Dr. Celi Guerin CAST NONE SEEN Normal NONE SEEN [facility] Comment on above: Performed By: #### P TT, PT #### [facility] [address] [place] [address] Dr. Celi Guerin Crystals LM Nom (Urine sed) NONE SEEN Normal NONE SEEN [facility] Comment on above: Performed By: #### P TT, PT #### [facility] [address] [place] [address] Dr. Celi Guerin Epithelial cells LM Ql (Urine sed) FEW Abnormal NONE SEEN /RARE [facility] Comment on above: Performed By: #### P TT, PT #### [facility] [address] [place] [address] Dr. Celi Guerin MUCOUS SMALL Abnormal NONE SEEN [facility] Comment on above: Performed By: #### P TT, PT #### [facility] [address] [place] [address] Dr. Celi Guerin RBC 5-10 Abnormal 0-[address] [facility] Comment on above: Performed By: #### P TT, PT #### [facility] [address] [place] [address] Dr. Celi Guerin WBC 0-2 Abnormal NONE SEEN [facility] Comment on above: Performed By: #### P TT, PT #### [facility] [address] [place] [address] Dr. Celi Guerin CBC AUTO DIFFon 10-09-2021 BASO # 0.0 103/ul Normal 0.0-0.[address] [facility] Comment on above: Performed By: #### ARTEMIO GOMEZ #### [facility] [address] [place] [address] Dr. Celi Guerin Basophils/100 WBC (Bld) 0.1 % Critically low 0.2-2.[address] [facility] Comment on above: Performed By: #### ARTEMIO GOMEZ #### [facility] [address] [place] [address] Dr. Celi Guerin EO # 0.0 103/ul Normal 0.0-0.[address] [facility] Comment on above: Performed By: #### ARTEMIO GOMEZ #### [facility] [address] [place] [address] Dr. Celi Guerin Eosinophils/100 WBC (Bld) 0.1 % Critically low 0.9-7.[address] [facility] Comment on above: Performed By: #### ARTEMIO GOMEZ #### [facility] [address] [place] [address] Dr. Celi Guerin Erythrocyte distribution width (RBC) [Ratio] 18.5 % Critically high 11.0-15.[address] [facility] Comment on above: Performed By: #### ARTEMIO GOMEZ #### [facility] [address] [address] [address] Celi Guerin Hematocrit (Bld) [Volume fraction] 36.0 % Normal 36.0-48.0 [facility] Comment on above: Performed By: #### E LUCEROR, UMICRO #### [facility] [address] [place] [address] Dr. Celi Guerin Hemoglobin (Bld) [Mass/Vol] 11.3 g/dL Critically low 12.0-16.0 [facility] Comment on above: Performed By: #### E RUR, UMICRO #### [facility] [address] [place] [address] Dr. Celi Guerin IG # 0.06 10e3/ul Critically high 0.00-0.03 [facility] Comment on above: Performed By: #### E RURuma, UMICRO #### [facility] [address] [place] [address] Dr. Celi Guerin IG % 0.8 % Critically high 0.0-0.[address] [facility] Comment on above: Performed By: #### Sergey ESTRELLA, UMICRO #### [facility] [address] [place] [address] Dr. Celi Guerin LYMPH # 1.5 103/ul Normal 1.2-3.8 [facility] Comment on above: Performed By: #### Sergey ESTRELLA, UMICRO #### [facility] [address] [place] [address] Dr. Celi Guerin Lymphocytes/100 WBC (Bld) 19.3 % Critically low 20.5-60.0 [facility] Comment on above: Performed By: #### E RUR, UMICRO #### [facility] [address] [place] [address] Dr. Celi Guerin MANUAL DIFF REQ NO Normal [facility] Comment on above: Performed By: #### E RUR, UMICRO #### [facility] [address] [place] [address] Dr. Celi Guerin MCH (RBC) [Entitic mass] 25.7 pg Critically low 26.7-34.0 [facility] Comment on above: Performed By: #### YURI GOMEZRO #### [facility] [address] [place] [address] Dr. Celi Guerin MCHC (RBC) [Mass/Vol] 31.4 g/dL Normal 29.9-35.2 [facility] Comment on above: Performed By: #### YURI GOMEZRO #### [facility] [address] [place] [address] Dr. Celi Guerin MCV (RBC) [Entitic vol] 81.8 fL Normal 81.0-99.0 [facility] Comment on above: Performed By: #### YURI GOMEZRO #### [facility] [address] [place] [address] Dr. Celi Guerin MONO # 0.6 103/ul Normal 0.3-0.8 [facility] Comment on above: Performed By: #### YURI GOMEZRO #### [facility] [address] [place] [address] Dr. Celi Guerin Monocytes/100 WBC (Bld) 7.9 % Normal 1.7-12.0 [facility] Comment on above: Performed By: #### YURI GOMEZRO #### [facility] [address] [place] [address] Dr. Celi Guerin NEUT # 5.6 103/ul Normal 1.4-6.5 [facility] Comment on above: Performed By: #### YURI GOMEZRO #### [facility] [address] [place] [address] Dr. Celi Guerin Neutrophils/100 WBC (Bld) 71.8 % Normal 43.0-75.0 [facility] Comment on above: Performed By: #### YURI GOMEZRO #### [facility] [address] [place] [address] Dr. Celi Guerin Platelet mean volume (Bld) [Entitic vol] 10.3 fL Normal 9.5-13.5 [facility] Comment on above: Performed By: #### YURI GOMEZRO #### [facility] [address] [address] [address] Celi Guerin PLT 78 103/ul Critically low 150-450 [facility] Comment on above: Performed By: #### ARTEMIO GOMEZ #### [facility] [address] [address] [address] Celi Guerin RBC 4.40 106/ul Normal 4.20-5.40 [facility] Comment on above: Performed By: #### ARTEMIO GOMEZ #### [facility] [address] [address] [address] Celi Guerin WBC 7.8 103/ul Normal 4.0-11.0 [facility] Comment on above: Performed By: #### ARTEMIO GOMEZ #### [facility] [address] [address] [address] Celi Guerin Covid-19 PCR ([facility])on 09-26 SARS-CoV-2 (COVID-19) RNA LIBERTAD+probe Ql (Unsp spec) Not detected Normal NOT DETECTED [facility] Comment on above: Result Comment: When [...] for this test is supported by the Veterinary Medical Officer of Health and Human Service's declaration that [...] Performed By: #### P TT, PT #### [facility] [address] [address] [address] Celi Guerin ETHANOL (BLD ALC)on 04-14-20 22 ALC NOTE NOTE: 80 mg/dl is th e legal limit for a blood alcohol level Normal [facility] Comment on above: Performed By: #### P TT, PT #### [facility] [address] [place] [address] Dr. Celi Guerin Ethanol [Mass/Vol] 26 mg/dL Normal [facility] Comment on above: Performed By: #### P TT, PT #### [facility] [address] [place] [address] Dr. Celi Guerin LIPASEon 10-09-2021 Lipase [Catalytic activity/Vol] U/L Critically high 23.0-300.[address] [facility] Comment on above: Performed By: #### P TT, PT #### [facility] [address] [place] [address] Dr. Celi Guerin PROF 14(COMP METB)on 022 Albumin [Mass/Vol] 4.1 g/dL Normal 3.4-5.0 [facility] Comment on above: Performed By: #### P TT, PT #### [facility] [address] [place] [address] Dr. Celi Guerin Albumin/Globulin [Mass ratio] 1.1 {ratio} Normal [facility] Comment on above: Performed By: #### P TT, PT #### [facility] [address] [place] [address] Dr. Celi Guerin ALP [Catalytic activity/Vol] 100 U/L Normal 46-116 [facility] Comment on above: Performed By: #### P TT, PT #### [facility] [address] [place] [address] Dr. Celi Guerin ALT [Catalytic activity/Vol] 44 U/L Normal 14-59 [facility] Comment on above: Performed By: #### P TT, PT #### [facility] [address] [place] [address] Dr. Celi Guerin Anion gap [Moles/Vol] 18.9 mmol/L Normal [facility] Comment on above: Performed By: #### P TT, PT #### [facility] [address] [address] [address] Celi Guerin AST [Catalytic activity/Vol] 84 U/L Critically high 15-[address] [facility] Comment on above: Performed By: #### P TT, PT #### [facility] [address] [place] [address] Dr. Celi Guerin Bilirubin [Mass/Vol] 0.6 mg/dL Normal 0.2-1.3 [facility] Comment on above: Performed By: #### P TT, PT #### [facility] [address] [place] [address] Dr. Celi Guerin Calcium [Mass/Vol] 8.8 mg/dL Normal 8.5-10.1 [facility] Comment on above: Performed By: #### P TT, PT #### [facility] [address] [place] [address] Dr. Celi Guerin Chloride [Moles/Vol] 100 mmol/L Normal 98-[address] [facility] Comment on above: Performed By: #### P TT, PT #### [facility] [address] [place] [address] Dr. Celi Guerin CO2 [Moles/Vol] 20.8 mmol/L Critically low 22.0-30.0 [facility] Comment on above: Performed By: #### P TT, PT #### [facility] [address] [place] [address] Dr. Celi Guerin Creatinine [Mass/Vol] 0.56 mg/dL Normal 0.52-1.04 [facility] Comment on above: Performed By: #### P TT, PT #### [facility] [address] [place] [address] Dr. Celi Guerin EGFR-AF HONG KONGER >60 Normal >=60 [facility] Comment on above: Performed By: #### P TT, PT #### [facility] [address] [place] [address] Dr. Celi Guerin EGFR-NON AF HONG [place]ER >60 Normal >=60 [facility] Comment on above: Performed By: #### P TT, PT #### [facility] [address] [place] [address] Dr. Celi Guerin Globulin (S) [Mass/Vol] 3.8 g/dL Normal [facility] Comment on above: Performed By: #### P TT, PT #### [facility] [address] [place] [address] Dr. Celi Guerin Glucose [Mass/Vol] 130 mg/dL Critically high 74-106 [facility] Comment on above: Performed By: #### P TT, PT #### [facility] [address] [place] [address] Dr. Celi Guerin Potassium [Moles/Vol] 3.7 mmol/L Normal 3.4-5.[address] [facility] Comment on above: Performed By: #### P TT, PT #### [facility] [address] [place] [address] Dr. Celi Guerin Protein [Mass/Vol] 7.9 g/dL Normal 6.1-8.2 [facility] Comment on above: Performed By: #### P TT, PT #### [facility] [address] [place] [address] Dr. Celi Guerin Sodium [Moles/Vol] 136 mmol/L Critically low 137-145 [facility] Comment on above: Performed By: #### P TT, PT #### [facility] [address] [place] [address] Dr. Celi Guerin Urea nitrogen [Mass/Vol] 9.0 mg/dL Normal 7.0-18.[address] [facility] Comment on above: Performed By: #### P TT, PT #### [facility] [address] [place] [address] Dr. Celi Guerin Urea nitrogen/Creatinine [Mass ratio] 16.1 mg/mg Normal [facility] Comment on above: Performed By: #### P TT, PT #### [facility] [address] [place] [address] Dr. Celi Guerin CULTURE URINEon 09-02-2021 CULTURE [...] Trimethoprim/Sulfamet hoxazole <=20 S F Normal [facility] Comment on above: Performed By: #### P TT, PT #### [facility] [address] [place] [address] Dr. Celi Guerin AMYLASEon 08-30-2021 Amylase [Catalytic activity/Vol] 538 U/L Critically high 31-[address] [facility] Comment on above: Result Comment: TEST REPEATED CRITICAL VALUE VERIFIED Performed By: #### P TT, PT #### [facility] [address] [place] [address] Dr. Celi Guerin CBC AUTO DIFFon 08-30-2021 BASO # 0.0 103/ul Normal 0.0-0.[address] [facility] Comment on above: Performed By: #### ARTEMIO GOMEZ #### [facility] [address] [place] [address] Dr. Celi Guerin Basophils/100 WBC (Bld) 0.2 % Normal 0.2-2.[address] [facility] Comment on above: Performed By: #### ARTEMIO GOMEZ #### [facility] [address] [place] [address] Dr. Celi Guerin EO # 0.0 103/ul Normal 0.0-0.[address] [facility] Comment on above: Performed By: #### ARTEMIO GOMEZ #### [facility] [address] [place] [address] Dr. Celi Guerin Eosinophils/100 WBC (Bld) 0.2 % Critically low 0.9-7.[address] [facility] Comment on above: Performed By: #### ARTEMIO GOMEZ #### [facility] [address] [place] [address] Dr. Celi Guerin Erythrocyte distribution width (RBC) [Ratio] 17.0 % Critically high 11.0-15.[address] [facility] Comment on above: Performed By: #### Sergey ESTRELLA UMICRO #### [facility] [address] [place] [address] Dr. Celi Guerin Hematocrit (Bld) [Volume fraction] 34.2 % Critically low 36.0-48.[address] [facility] Comment on above: Performed By: #### Sergey ESTRELLA, UMICRO #### [facility] [address] [place] [address] Dr. Celi Guerin Hemoglobin (Bld) [Mass/Vol] 10.6 g/dL Critically low 12.0-16.[address] [facility] Comment on above: Performed By: #### Sergey ESTRELLA UMICRO #### [facility] [address] [place] [address] Dr. Celi Guerin IG # 0.03 10e3/ul Normal 0.00-0.[address] [facility] Comment on above: Performed By: #### Sergey ESTRELLA UMICRO #### [facility] [address] [place] [address] Dr. Celi Guerin IG % 0.5 % Normal 0.0-0.[address] [facility] Comment on above: Performed By: #### Sergey ESTRELLA, UMICRO #### [facility] [address] [place] [address] Dr. Celi Guerin LYMPH # 0.8 103/ul Critically low 1.2-3.8 [facility] Comment on above: Performed By: #### Sergey ESTRELLA, UMICRO #### [facility] [address] [place] [address] Dr. Celi Guerin Lymphocytes/100 WBC (Bld) 14.4 % Critically low 20.5-60.[address] [facility] Comment on above: Performed By: #### Sergey ESTRELLA, UMICRO #### [facility] [address] [place] [address] Dr. Celi Guerin MANUAL DIFF REQ NO Normal [facility] Comment on above: Performed By: #### Sergey ESTRELLA UMICRO #### [facility] [address] [place] [address] Dr. Celi Guerin MCH (RBC) [Entitic mass] 26.9 pg Normal 26.7-34.0 [facility] Comment on above: Performed By: #### Sergey ESTRELLA UMICRO #### [facility] [address] [place] [address] Dr. Celi Guerin MCHC (RBC) [Mass/Vol] 31.0 g/dL Normal 29.9-35.2 [facility] Comment on above: Performed By: #### Sergey ESTRELLA UMICRO #### [facility] [address] [place] [address] Dr. Celi Guerin MCV (RBC) [Entitic vol] 86.8 fL Normal 81.0-99.0 [facility] Comment on above: Performed By: #### Sergey ESTRELLA UMICRO #### [facility] [address] [place] [address] Dr. Celi Guerin MONO # 0.3 103/ul Normal 0.3-0.8 [facility] Comment on above: Performed By: #### FLOR GOMEZICRO #### [facility] [address] [place] [address] Dr. Celi Guerin Monocytes/100 WBC (Bld) 4.9 % Normal 1.7-12.0 [facility] Comment on above: Performed By: #### FLOR GOMEZICRO #### [facility] [address] [place] [address] Dr. Celi Guerin NEUT # 4.6 103/ul Normal 1.4-6.5 [facility] Comment on above: Performed By: #### Sergey ESTRELLA UMICRO #### [facility] [address] [place] [address] Dr. Celi Guerin Neutrophils/100 WBC (Bld) 79.8 % Critically high 43.0-75.0 [facility] Comment on above: Performed By: #### Sergey ESTRELLA UMICRO #### [facility] [address] [place], [place] [address] Dr. Celi Guerin Platelet mean volume (Bld) [Entitic vol] 11.7 fL Normal 9.5-13.[address] [facility] Comment on above: Performed By: #### E RUR, UMICRO #### [facility] [address] [place], [place] [address] Dr. Celi Guerin PLT 68 103/ul Critically low 150-450 [facility] Comment on above: Performed By: #### E RUR, UMICRO #### [facility] [address] [place], [place] [address] Dr. Celi Guerin RBC 3.94 106/ul Critically low 4.20-5.40 [facility] Comment on above: Performed By: #### E LUCEROR, UMICRO #### [facility] [address] [place], [place] [address] Dr. Celi Guerin WBC 5.8 103/ul Normal 4.0-11.[address] [facility] Comment on above: Performed By: #### Sergey BARKERR, UMICRO #### [facility] [address] [place], [place] [address] ABD/PELVIS WO CONon [...] BOONE LEA Date: 2021-08-30 18:43 Normal [facility] ER URINE PROFILEon 2 Bilirubin Ql (U) SMALL Abnormal NEGATIVE [facility] Comment on above: Performed By: #### ARTEMIO GOMEZ #### [facility] [address] [address] [address] Celi Guerin Clarity (U) CLEAR Normal CLEAR [facility] Comment on above: Performed By: #### ARTEMIO GOMEZ #### [facility] [address] [place], [place] [address] Dr. Celi Guerin Color (U) YELLOW Normal YELLOW [facility] Comment on above: Performed By: #### ARTEMIO GOMEZ #### [facility] [address] [place] [address] Dr. Celi LUCAS A micrscopic examination will be performed if indicated. Normal [facility] Comment on above: Performed By: #### YURI GOMEZRO #### [facility] [address] [place] [address] Dr. Celi Guerin Glucose Ql (U) Negative Normal NEGATIVE [facility] Comment on above: Performed By: #### YURI GOMEZRO #### [facility] [address] [place] [address] Dr. Celi Guerin Hemoglobin Ql (U) Negative Normal NEGATIVE [facility] Comment on above: Performed By: #### YURI GOMEZRO #### [facility] [address] [place] [address] Dr. Celi Guerin Ketones Ql (U) >=80 Abnormal NEGATIVE [facility] Comment on above: Performed By: #### YURI GOMEZRO #### [facility] [address] [place] [address] Dr. Celi Guerin LEUKOCYTES MODERATE Abnormal NEGATIVE [facility] Comment on above: Performed By: #### YURI GOMEZRO #### [facility] [address] [place] [address] Dr. Celi Guerin Nitrite Ql (U) Positive Abnormal NEGATIVE [facility] Comment on above: Performed By: #### YURI GOMEZRO #### [facility] [address] [place] [address] Dr. Celi Guerin pH (U) 6.5 [pH] Normal 5-[address] [facility] Comment on above: Performed By: #### YURI GOMEZRO #### [facility] [address] [place] [address] Dr. Celi Guerin Protein (U) [Mass/Vol] 100 mg/dL Abnormal NEGATIVE/ TRACE [facility] Comment on above: Performed By: #### YURI GOMEZRO #### [facility] [address] [place] [address] Dr. Celi Guerin SPEC GRAVITY 1.020 Normal 1.005-<=1.[address] [facility] Comment on above: Performed By: #### E ARTEMIO ESTRELLA #### [facility] [address] [place] [address] Dr. Celi uGerin UR MICRO IND INDICATED Normal [facility] Comment on above: Performed By: #### E YURI ESTRELLARO #### [facility] [address] [place] [address] Dr. Celi Guerin Urobilinogen Qn (U) 2.0 {Irland[place]'U}/dL Abnormal 0.2 - 1. 0 [facility] Comment on above: Performed By: #### ARTEMIO GOMEZ #### [facility] [address] [place] [address] Dr. Celi Guerin ETHANOL (BLD ALC)on 08-31-19 22 ALC NOTE NOTE: 80 mg/dl is th e legal limit for a blood alcohol level Normal [facility] Comment on above: Performed By: #### E TH #### [facility] [address] [place] [address] Dr. Celi Guerin Ethanol [Mass/Vol] mg/dL Normal [facility] Comment on above: Performed By: #### E TH #### [facility] [address] [place] [address] Dr. Celi Guerin LIPASEon 08-30-2021 Lipase [Catalytic activity/Vol] U/L Critically high 23.0-300.[address] [facility] Comment on above: Result Comment: TEST REPEATED CRITICAL VALUE VERIFIED Performed By: #### P TT, PT #### [facility] [address] [place] [address] Dr. Celi Guerin PROF 14(COMP METB)on 022 Albumin [Mass/Vol] 3.9 g/dL Normal 3.5-5.0 [facility] Comment on above: Performed By: #### P TT, PT #### [facility] [address] [place] [address] Dr. Celi Guerin Albumin/Globulin [Mass ratio] 1.1 {ratio} Normal [facility] Comment on above: Performed By: #### P TT, PT #### [facility] [address] [address] [address] Celi Guerin ALP [Catalytic activity/Vol] 91 U/L Normal 38-[address] [facility] Comment on above: Performed By: #### P TT, PT #### [facility] [address] [address] [address] Celi Guerin ALT [Catalytic activity/Vol] 52 U/L Normal 9-[address] [facility] Comment on above: Performed By: #### P TT, PT #### [facility] [address] [address] [address] Celi Guerin Anion gap [Moles/Vol] 16.7 mmol/L Normal [facility] Comment on above: Performed By: #### P TT, PT #### [facility] [address] [place] [address] Dr. Celi Guerin AST [Catalytic activity/Vol] 59 U/L Critically high 14-[address] [facility] Comment on above: Performed By: #### P TT, PT #### [facility] [address] [address] [address] Celi Guerin Bilirubin [Mass/Vol] 1.0 mg/dL Normal 0.2-1.[address] [facility] Comment on above: Performed By: #### P TT, PT #### [facility] [address] [address] [address] Celi Guerin Calcium [Mass/Vol] 9.0 mg/dL Normal 8.4-10.2 [facility] Comment on above: Performed By: #### P TT, PT #### [facility] [address] [address] [address] Celi Guerin Chloride [Moles/Vol] 95 mmol/L Critically low 98-[address] [facility] Comment on above: Performed By: #### P TT, PT #### [facility] [address] [address] [address] Celi Guerin CO2 [Moles/Vol] 22.8 mmol/L Normal 22.0-30.0 [facility] Comment on above: Performed By: #### P TT, PT #### [facility] [address] [address] [address] Celi Guerin Creatinine [Mass/Vol] 0.57 mg/dL Normal 0.52-1.[address] [facility] Comment on above: Performed By: #### P TT, PT #### [facility] [address] [address] [address] Celi Guerin EGFR-AF [place]ONG [place]ER >60 Normal >=60 [facility] Comment on above: Performed By: #### P TT, PT #### [facility] [address] [address] [address] Celi Guerin EGFR-NON AF [place]ER >60 Normal >=[address] [facility] Comment on above: Performed By: #### P TT, PT #### [facility] [address] [place] [address] Dr. Celi Guerin Globulin (S) [Mass/Vol] 3.5 g/dL Normal [facility] Comment on above: Performed By: #### P TT, PT #### [facility] [address] [address] [address] Celi Guerin Glucose [Mass/Vol] 82 mg/dL Normal 74-106 [facility] Comment on above: Performed By: #### P TT, PT #### [facility] [address] [place] [address] Dr. Celi Guerin Potassium [Moles/Vol] 3.5 mmol/L Normal 3.4-5.[address] [facility] Comment on above: Performed By: #### P TT, PT #### [facility] [address] [address] [address] Celi Guerin Protein [Mass/Vol] 7.4 g/dL Normal 6.1-8.2 [facility] Comment on above: Performed By: #### P TT, PT #### [facility] [address] [place] [address] Dr. Celi Guerin Sodium [Moles/Vol] 131 mmol/L Critically low 137-145 [facility] Comment on above: Performed By: #### P TT, PT #### [facility] [address] [place] [address] Dr. Celi Guerin Urea nitrogen [Mass/Vol] 8.0 mg/dL Normal 7.0-17.[address] [facility] Comment on above: Performed By: #### P TT, PT #### [facility] [address] [place] [address] Dr. Celi Guerin Urea nitrogen/Creatinine [Mass ratio] 14.0 mg/mg Normal [facility] Comment on above: Performed By: #### P TT, PT #### [facility] [address] [place] [address] Dr. Celi Guerin URINE MICROSCOPIC ONLYon BACTERIA MODERATE Abnormal NONE SEEN [facility] Comment on above: Performed By: #### E SAMEER, UMICRO #### [facility] [address] [place] [address] Dr. Celi Guerin Bacteria identified Cx Nom (U) INDICATED Normal [facility] Comment on above: Performed By: #### E SAMEER UMICRO #### [facility] [address] [place] [address] Dr. Celi Guerin CAST SEEN Abnormal NONE SEEN [facility] Comment on above: Performed By: #### E SAMEER UMICRO #### [facility] [address] [place] [address] Dr. Celi Guerin Crystals LM Nom (Urine sed) NONE SEEN Normal NONE SEEN [facility] Comment on above: Performed By: #### E SAMEER UMICRO #### [facility] [address] [place] [address] Dr. Celi Guerin Epithelial cells LM Ql (Urine sed) FEW Abnormal NONE SEEN /RARE [facility] Comment on above: Performed By: #### E SAMEER UMICRO #### [facility] [address] [place] [address] Dr. Celi Guerin HYALINE CAST RARE Normal [facility] Comment on above: Performed By: #### Sergey ESTRELLA, UMICRO #### [facility] [address] [place] [address] Dr. Celi Guerin MUCOUS NONE SEEN Normal NONE SEEN [facility] Comment on above: Performed By: #### YURI GOMEZRO #### [facility] [address] [place] [address] Dr. Celi Guerin RBC 0-2 Normal 0-[address] [facility] Comment on above: Performed By: #### YURI GOMEZRO #### [facility] [address] [place] [address] Dr. Celi Guerin WBC 10-20 Abnormal NONE SEEN [facility] Comment on above: Performed By: #### YURI GOMEZRO #### [facility] [address] [place] [address] Dr. Celi Guerin AMYLASEon 07-04-2021 Amylase [Catalytic activity/Vol] 113 U/L Critically high 31-[address] [facility] Comment on above: Performed By: #### YURI GOMEZRO #### [facility] [address] [place] [address] Dr. Celi Guerin CBC AUTO DIFFon 07-04-2021 BASO # 0.0 103/ul Normal 0.0-0.[address] [facility] Comment on above: Performed By: #### C BC #### [facility] [address] [place] [address] Dr. Celi Guerin Basophils/100 WBC (Bld) 0.3 % Normal 0.2-2.[address] [facility] Comment on above: Performed By: #### C BC #### [facility] [address] [place], [place] [address] Dr. Celi Guerin EO # 0.0 103/ul Normal 0.0-0.7 [facility] Comment on above: Performed By: #### C BC #### [facility] [address] [place] [address] Dr. Celi Guerin Eosinophils/100 WBC (Bld) 0.0 % Critically low 0.9-7.[address] [facility] Comment on above: Performed By: #### C BC #### [facility] [address] [place] [address] Dr. Celi Guerin Erythrocyte distribution width (RBC) [Ratio] 20.1 % Critically high 11.0-15.[address] [facility] Comment on above: Performed By: #### C BC #### [facility] [address] [place] [address] Dr. Celi Guerin Hematocrit (Bld) [Volume fraction] 36.8 % Normal 36.0-48.[address] [facility] Comment on above: Performed By: #### C BC #### [facility] [address] [place] [address] Dr. Celi Guerin Hemoglobin (Bld) [Mass/Vol] 12.3 g/dL Normal 12.0-16.[address] [facility] Comment on above: Performed By: #### C BC #### [facility] [address] [place] [address] Dr. Celi Guerin IG # 0.04 10e3/ul Critically high 0.00-0.03 [facility] Comment on above: Performed By: #### C BC #### [facility] [address] [place] [address] Dr. Celi Guerin IG % 0.6 % Critically high 0.0-0.5 [facility] Comment on above: Performed By: #### C BC #### [facility] [address] [place] [address] Dr. Celi Guerin LYMPH # 0.9 103/ul Critically low 1.2-3.8 [facility] Comment on above: Performed By: #### C BC #### [facility] [address] [place] [address] Dr. Celi Guerin Lymphocytes/100 WBC (Bld) 12.7 % Critically low 20.5-60.[address] [facility] Comment on above: Performed By: #### C BC #### [facility] [address] [place] [address] Dr. Celi Guerin MANUAL DIFF REQ NO Normal [facility] Comment on above: Performed By: #### C BC #### [facility] [address] [place] [address] Dr. Celi Guerin MCH (RBC) [Entitic mass] 29.5 pg Normal 26.7-34.[address] [facility] Comment on above: Performed By: #### C BC #### [facility] [address] [place] [address] Dr. Celi Guerin MCHC (RBC) [Mass/Vol] 33.4 g/dL Normal 29.9-35.[address] [facility] Comment on above: Performed By: #### C BC #### [facility] [address] [place] [address] Dr. Celi Guerin MCV (RBC) [Entitic vol] 88.2 fL Normal 81.0-99.[address] [facility] Comment on above: Performed By: #### C BC #### [facility] [address] [place] [address] Dr. Celi Guerin MONO # 0.5 103/ul Normal 0.3-0.[address] [facility] Comment on above: Performed By: #### C BC #### [facility] [address] [place] [address] Dr. Celi Guerin Monocytes/100 WBC (Bld) 6.9 % Normal 1.7-12.[address] [facility] Comment on above: Performed By: #### C BC #### [facility] [address] [place] [address] Dr. Celi Guerin NEUT # 5.5 103/ul Normal 1.4-6.[address] [facility] Comment on above: Performed By: #### C BC #### [facility] [address] [place] [address] Dr. Celi Guerin Neutrophils/100 WBC (Bld) 79.5 % Critically high 43.0-75.[address] [facility] Comment on above: Performed By: #### C BC #### [facility] [address] [place] [address] Dr. Celi Guerin Platelet mean volume (Bld) [Entitic vol] 10.0 fL Normal 9.5-13.5 [facility] Comment on above: Performed By: #### C BC #### [facility] [address] [place] [address] Dr. Celi Guerin PLT 95 103/ul Critically low 150-450 [facility] Comment on above: Performed By: #### C BC #### [facility] [address] [place], [place] [address] Dr. Celi Guerin RBC 4.17 106/ul Critically low 4.20-5.40 [facility] Comment on above: Performed By: #### C BC #### [facility] [address] [place], [place] [address] Dr. Celi Guerin WBC 7.0 103/ul Normal 4.0-11.[address] [facility] Comment on above: Performed By: #### C BC #### [facility] [address] [place], [place] [address] ABD/PELV W CONon [...] OSMIN MCGEE Date: 2021-07-04 16:56 Normal [facility] ETHANOL (BLD ALC)on 07-04-19 22 ALC NOTE NOTE: 80 mg/dl is [facility] legal limit for a blood alcohol level Normal [facility] Comment on above: Performed By: #### ARTEMIO GOMEZ #### [facility] [address] [place] [address] Dr. Celi Guerin Ethanol [Mass/Vol] 35 mg/dL Normal [facility] Comment on above: Performed By: #### YURI GOMEZRO #### [facility] [address] [place] [address] Dr. Celi Guerin LIPASEon 07-04-2021 Lipase [Catalytic activity/Vol] 830.0 U/L Critically high 23.0-300.[address] [facility] Comment on above: Performed By: #### ARTEMIO GOMEZ #### [facility] [address] [place] [address] Dr. Celi Guerin PREG HCG QUALon 07-04-2021 , QUAL Negative Normal NEGATIVE [facility] Comment on above: Performed By: #### P REG #### [facility] [address] [place] [address] Dr. Celi Guerin PROF 14(COMP METB)on 022 Albumin [Mass/Vol] 3.2 g/dL Critically low 3.5-5.0 [facility] Comment on above: Performed By: #### YURI GOMEZRO #### [facility] [address] [place] [address] Dr. Celi Guerin Albumin/Globulin [Mass ratio] 0.7 {ratio} Normal [facility] Comment on above: Performed By: #### YURI GOMEZRO #### [facility] [address] [place] [address] Dr. Celi Guerin ALP [Catalytic activity/Vol] 126 U/L Normal 38-[address] [facility] Comment on above: Performed By: #### YURI GOMEZRO #### [facility] [address] [place] [address] Dr. Celi Guerin ALT [Catalytic activity/Vol] 60 U/L Critically high 9-[address] [facility] Comment on above: Performed By: #### YURI GOMEZRO #### [facility] [address] [place] [address] Dr. Celi Guerin Anion gap [Moles/Vol] 17.7 mmol/L Normal [facility] Comment on above: Performed By: #### YURI GOMEZRO #### [facility] [address] [place] [address] Dr. Celi Guerin AST [Catalytic activity/Vol] 112 U/L Critically high 14-36 [facility] Comment on above: Performed By: #### YURI GOMEZRO #### [facility] [address] [place] [address] Dr. Celi Guerin Bilirubin [Mass/Vol] 0.7 mg/dL Normal 0.2-1.3 [facility] Comment on above: Performed By: #### YURI GOMEZRO #### [facility] [address] [place] [address] Dr. Celi Guerin Calcium [Mass/Vol] 8.5 mg/dL Normal 8.4-10.2 [facility] Comment on above: Performed By: #### Sergey ESTRELLA UMICRO #### [facility] [address] [place] [address] Dr. Celi Guerin Chloride [Moles/Vol] 98 mmol/L Normal 98-107 [facility] Comment on above: Performed By: #### Sergey ESTRELLA UMICRO #### [facility] [address] [place] [address] Dr. Celi Guerin CO2 [Moles/Vol] 23.5 mmol/L Normal 22.0-30.0 [facility] Comment on above: Performed By: #### Sergey ESTRELLA UMICRO #### [facility] [address] [place] [address] Dr. Celi Guerin Creatinine [Mass/Vol] 0.57 mg/dL Normal 0.52-1.04 [facility] Comment on above: Performed By: #### E LUCEROR, UMICRO #### [facility] [address] [place] [address] [address] Celi Guerin EGFR-AF [place]ONG [place]ER >60 Normal >=60 [facility] Comment on above: Performed By: #### E LUCEROR, UMICRO #### [facility] [address] [place] [address] [address] Celi Guerin EGFR-NON AF [place]ER >60 Normal >=[address] [facility] Comment on above: Performed By: #### E RUR, UMICRO #### [facility] [address] [place] [address] [address] Celi Guerin Globulin (S) [Mass/Vol] 4.3 g/dL Normal [facility] Comment on above: Performed By: #### E SAMEER, UMICRO #### [facility] [address] [place] [address] Dr. Celi Guerin Glucose [Mass/Vol] 104 mg/dL Normal 74-106 [facility] Comment on above: Performed By: #### E SAMEER, UMICRO #### [facility] [address] [place] [address] [address] Celi Guerin Potassium [Moles/Vol] 3.2 mmol/L Critically low 3.4-5.[address] [facility] Comment on above: Performed By: #### Sergey ESTRELLA, UMICRO #### [facility] [address] [place] [address] [address] Celi Guerin Protein [Mass/Vol] 7.5 g/dL Normal 6.1-8.2 [facility] Comment on above: Performed By: #### Sergey ESTRELLA, UMICRO #### [facility] [address] [place] [address] [address] Celi Guerin Sodium [Moles/Vol] 136 mmol/L Critically low 137-145 [facility] Comment on above: Performed By: #### E LUCEROR, UMICRO #### [facility] [address] [place] [address] [address] Celi Guerin Urea nitrogen [Mass/Vol] 5.0 mg/dL Critically low 7.0-17.[address] [facility] Comment on above: Performed By: #### E YURI ESTRELLARO #### [facility] [address] [place] [address] Dr. Celi Guerin Urea nitrogen/Creatinine [Mass ratio] 8.8 mg/mg Normal [facility] Comment on above: Performed By: #### E YURI ESTRELLARO #### [facility] [address] [place] [address] Dr. Celi Guerin PROTIMEon 07-04-2021 INR Coag (PPP) [Relative time] 1.03 {INR} Normal [facility] Comment on above: Performed By: #### P TT, PT #### [facility] [address] [place] [address] Dr. Celi Guerin INR GUIDELINES SEE BELOW Normal [facility] Comment on above: Result Comment: KIRILL RED INR: 2.0 - 3.0 CONDITIONS NOT LISTED BELOW 2.5 - 3.5 FOR PROSTHETIC HEART VALVE REPLACEMENT 2.5 - 3.5 RECURRENT THROMBOSIS Performed By: #### P TT, PT #### [facility] [address] [place] [address] Dr. Celi Guerin PT Coag (PPP) [Time] 11.1 s Normal 9.0-11.6 [facility] Comment on above: Performed By: #### P TT, PT #### [facility] [address] [place] [address] Dr. Celi Guerin PTTon 07-04-2021 aPTT Coag (Bld) [Time] 27.6 s Normal 22.3-36.2 [facility] Comment on above: Performed By: #### P TT, PT #### [facility] [address] [place] [address] Dr. Celi Guerin Covid-19 PCR ([facility])on SARS-CoV-2 (COVID-19) RNA LIBERTAD+probe Ql (Unsp spec) Not detected Normal NOT DETECTED [facility] Comment on above: Result Comment: When [...] for this test is supported by the Veterinary Medical Officer of Health and Human Service's declaration that [...] used). Performed By: #### ARTEMIO GOMEZ #### [facility] [address] [place] [address] Dr. Celi Guerin COVID-19/INFLUENZA A,B [facility] 05-21-2020 COVID-19/INFLUENZA A,B MOLECULAR SARS-COV-2 (YUNG): Detected INFLUENZA A (YUNG): Not Detected INFLUENZA B (YUNG): Not Detected Normal Not Detected [facility] Comment on above: Order Comment: This [...] at the following links: For Healthcare Providers: https://www.fda.gov/media/500244/download For Patients: https://www.fda.gov/media/084745/download Performed By: #### L [id number] #### [facility] [address] [place] [address] Faye Enriquez M.D. [id number] COVID-19/Influenza A,B [facility] 05-21-2020 Influenza A Not Detected Not Detected [facility] Influenza B Not Detected Not Detected [facility] Interpretation and review of laboratory results Abnormal [facility] SARS-CoV-2 Detected Abnormal Not Detected [facility] This test was performed under the [...] at the following links: For Healthcare Providers: https://www.[facility].gov/m edia/602933/download For Patients: https://www.fda.gov/m edia/183681/download [facility] INCISION AND DRAINAGEon 09-26 Maria Elena [...] the procedure well with no immediate complications [facility] Alcohol, Medicalon 0 Ethanol [Mass/Vol] 342.00 mg/dL High <10.00 [facility] Interpretation and review of laboratory results Abnormal [facility] BMPon 08-29-2019 Anion gap [Moles/Vol] 11 mmol/L 10 - 20 mmol/L [facility] Calcium [Mass/Vol] 9.0 mg/dL 8.4 - 10. 2 mg/dL [facility] Chloride [Moles/Vol] 111 mmol/L High 98 - 108 mmol/L [facility] Creatinine [Mass/Vol] 0.65 mg/dL 0.40 - 1.10 [facility] GFR/1.73 sq M predicted among non-blacks MDRD (S/P/Bld) [Vol rate/Area] The eGFR should be used for monitoring renal function only and not for medication dosing. [facility] GFR/1.73 sq M.predicted CKD-EPI (S/P/Bld) [Vol rate/Area] 118 >=60 mL/min/1.73 m2 [facility] Glucose [Mass/Vol] 86 mg/dL 65 - 99 mg/dL [facility] HCO3 [Moles/Vol] 24 mmol/L 21 - 32 mmol/L [facility] Interpretation and review of laboratory results Abnormal [facility] Potassium [Moles/Vol] 4.1 mmol/L 3.5 - 5.1 mmol/L [facility] Sodium [Moles/Vol] 142 mmol/L 135 - 145 mmol/L [facility] Urea nitrogen [Mass/Vol] 9 mg/dL 8 - 25 mg/dL [facility] Urea nitrogen/Creatinine [Mass ratio] 13.8 mg/mg [facility] CBC WITH AUTO DIFFERENTIALon 08-29-2019 Basophils (Bld) [#/Vol] 0.05 10*3/uL [facility] Basophils/100 WBC (Bld) 0.4 % [facility] Eosinophils (Bld) [#/Vol] 0.08 10*3/uL [facility] Eosinophils/100 WBC (Bld) 0.6 % [facility] Erythrocyte distribution width (RBC) [Entitic vol] 19.7 % High 11.6 - 14.8 % [facility] Hematocrit (Bld) [Volume fraction] 38.3 % 36 - 46 % [facility] Hemoglobin (Bld) [Mass/Vol] 12.8 g/dL 12 - 16 g/dL [facility] Immature granulocytes (Bld) [#/Vol] 0.05 10*3/uL [facility] Immature granulocytes/100 WBC (Bld) 0.40 % [facility] Comment on above: The IG parameter is the percentage of metamyelocytes, myelocytes, and promyelocytes. Interpretation and review of laboratory results Abnormal [facility] Lymphocytes (Bld) [#/Vol] 3.14 10*3/uL [facility] Lymphocytes/100 WBC (Bld) 23.9 % [facility] MCH (RBC) [Entitic mass] 29.1 pg 26 - 34 pg [facility] MCHC (RBC) [Mass/Vol] 33.4 g/dL 31 - 37 g/dL [facility] MCV (RBC) [Entitic vol] 87.0 fL 80 - 100 fL [facility] Monocytes (Bld) [#/Vol] 0.67 10*3/uL [facility] Monocytes/100 WBC (Bld) 5.1 % [facility] Neutrophils (Bld) [#/Vol] 9.16 10*3/uL [facility] Neutrophils/100 WBC (Bld) 69.6 % [facility] Nucleated RBC (Bld) [#/Vol] 0.01 10*3/uL [facility] Nucleated RBC/100 WBC (Bld) [Ratio] 0.1 % [facility] Platelet mean volume (Bld) [Entitic vol] 10.0 fL 9 - 15.5 fL [facility] Platelets (Bld) [#/Vol] 191 10*3/uL [facility] RBC (Bld) [#/Vol] 4.40 10*6/uL [facility] ealth WBC (Bld) [#/Vol] 13.15 10*3/uL [facility] CT ABDOMEN PELVIS WITH IV CO [...] is normal. 2. Hepatic steatosis. Workstation ID: [id number] Dictated by: MELINA BAILEY on WedAug 29, 2019 2:37:05 PM EST Transcribed by: MELINA BAILEY on WedAug 29, 2019 2:37:05 PM EST Finalized by: MELINA BAILEY on WedAug 29, 2019 2:37:05 PM EST Normal [facility] Comment on above: Order Comment: Injur [...] nondilated. There is no acute osseous pathology. [facility], Rad In Fuji Speechq - 08/29/2019 [...] is normal. 2. Hepatic steatosis. Workstation ID: [id number] [facility] 1. Fairly diffuse colonic wall thickening that may reflect incomplete bowel distention and spasm versus a mild colitis. There is no bowel obstruction. The appendix is normal. 2. Hepatic steatosis. Workstation ID: [id number] [facility] Hepatic Function Panel (LFT) on 08-29-2019 Albumin [Mass/Vol] 3.8 g/dL 3.2 - 5.2 g/dL [facility] ALP [Catalytic activity/Vol] 62 U/L 40 - 140 U/L [facility] ALT [Catalytic activity/Vol] 25 U/L 14 - 65 U/L [facility] AST [Catalytic activity/Vol] 21 U/L 0 - 45 U/L [facility] Bilirubin [Mass/Vol] 0.3 mg/dL 0 - 1.3 mg/dL [facility] Bilirubin.conjugate d [Mass/Vol] mg/dL 0 - 0.4 mg/dL [facility] Protein [Mass/Vol] 7.6 g/dL 6 - 8 g/dL [facility] alth Lipaseon 08-29-2019 Lipase [Catalytic activity/Vol] 102 U/L 73 - 393 U/L [facility] Otheron 08-29-2019 Extra Tube Hold for add-ons. [facility] Comment on above: Auto resulted. Interpretation and review of laboratory results Normal [facility] URINALYSISon 08-29-2019 Bacteria Auto Ql (U) None Seen None Seen /hpf [facility] Bilirubin Ql (U) Negative Negative [facility] th Clarity Refractometry automated (U) Clear Clear [facility] Color (U) Colorless Colorless, Yellow [facility] Glucose Auto test strip (U) [Mass/Vol] Negative Negative mg/dL [facility] Hemoglobin Auto test strip Ql (U) Large Abnormal Negative [facility] Interpretation and review of laboratory results Abnormal [facility] Ketones (U) [Mass/Vol] Negative Negative mg/dL [facility] Leukocyte esterase Auto test strip Ql (U) Negative Negative [facility] Nitrite Auto test strip Ql (U) Negative Negative [facility] pH (U) 6.0 [pH] [facility] Protein (U) [Mass/Vol] Negative Negative mg/dL [facility] Specific gravity (U) [Rel density] 1.002 Low [facility] Urobilinogen (U) [Mass/Vol] <2.0 <2.0 mg/dL [facility] WBC Auto (Urine sed) [#/Area] <1 [facility] Microscopic examination is performed on all urinalysis samples and only positive findings are reported. The test for blood on the chemical analytic portion of urinalysis may also be positive due to hemoglobinuria and myoglobinuria and if red blood cells are present they are quantified by microscopic examination. [facility] Urine Pregnancyon 08-29-2019 Beta HCG ( test) Ql (U) Urine specific gravity less than 1.010 can give a false negative test result. Any specimen with a specific gravity less than 1.010 or collected before the first day of a missed menstrual period should be checked with a serum test. [facility] HCG ( test) Ql (U) Negative Negative [facility] Interpretation and review of laboratory results Normal [facility] Basic Metabolic Panelon 09-26 Calcium mass conc 9.6 mg/dL Normal 8.2-10.2 [facility] Comment on above: Performed By: #### C BC, ETOH, CMP #### [facility] [address] Chloride molar conc 103 mmol/L Normal 95-114 [facility] Comment on above: Performed By: #### C BC, ETOH, CMP #### [facility] [address] CO2 molar conc 24.1 mmol/L Normal 22.0-30.0 [facility] Comment on above: Performed By: #### C BC, ETOH, CMP #### [facility] [address] Creatinine mass conc 127.2233860409 mg/dL Normal [facility] Comment on above: Result Comment: PERF ORMED BY: [place] [address] PATHOLOGIST [employer] CLAUDIA BAUER M.D. Performed By: #### C BC, ETOH, CMP #### [address] Creatinine mass conc 0.63 mg/dL Normal 0.44-1.03 [facility] Comment on above: Performed By: #### C BC, ETOH, CMP #### [address] Estimated GFR ( Khloe > 60 [facility] Comment on above: Result Comment: GFR estimated reference range: According to KDOQI guidelines, <60 ml/min/1.73m2 is sufficient to diagnose a patient with chronic kidney disease. Performed By: #### C BC, ETOH, CMP #### [place] [address] [place] Estimated GFR (Non- Am > 60 Normal [facility] Comment on above: Performed By: #### C BC, ETOH, CMP #### [facility] [address] [place] [address] [place] Glucose mass conc 91 mg/dL Normal 70-100 [facility] Comment on above: Result Comment: [place] om Glucose Reference Range is dependent on time and content of last meal. Glucose of more than 200 mg/dL in a nonstressed, ambulatory subject supports the diagnosis of Diabetes Mellitus. ADA recommended reference range Performed By: #### C BC, ETOH, CMP #### [facility] [address] Potassium molar conc 3.9 mmol/L Normal 3.5-5.1 [facility] Comment on above: Performed By: #### C BC, ETOH, CMP #### [facility] [address] Sodium molar conc 135 mmol/L Low 136-146 [facility] Comment on above: Performed By: #### C BC, ETOH, CMP #### [facility] [address] Urea nitrogen mass conc 4 mg/dL Low 9-23 [facility] Comment on above: Performed By: #### C BC, ETOH, CMP #### [address] Hepatic Panelon 10-10-2018 Albumin mass conc 3.5 g/dL Normal 3.2-5.5 [facility] Comment on above: Performed By: #### H STEVE BMP #### [address] Albumin/Globulin mass ratio 1.3 {ratio} Normal [facility] Comment on above: Performed By: #### H STEVE BMP #### [address] ALP enzyme act/vol 72 U/L Normal 32-92 [facility] Comment on above: Performed By: #### H STEVE BMP #### [facility] [address] [place] [address] ALT enzyme act/vol 91 U/L High 10-60 [facility] Comment on above: Performed By: #### H EPACLARI, BMP #### [facility] [address] [place] [address] AST enzyme act/vol 112 U/L High 10-42 [facility] Comment on above: Performed By: #### H EPACLARI BMP #### [facility] [address] [place] [address] Bilirubin mass conc 0.5 mg/dL Normal 0.3-1.2 [facility] Comment on above: Performed By: #### H STEVE BMP #### [facility] [address] [place] [address] Bilirubin,Indirect 0.3 mg/dL Normal [facility] Comment on above: Performed By: #### H STEVE, BMP #### [facility] [address] [place] [address] Bilirubin.direct mass conc 0.2 mg/dL Normal 0.0-0.4 [facility] Comment on above: Performed By: #### H STEVE, BMP #### [address] Globulin mass conc (S) 2.6 g/dL Normal [facility] Comment on above: Performed By: #### H STEVE, BMP #### [address] Protein mass conc 6.1 g/dL Normal 6.1-7.9 [facility] Comment on above: Performed By: #### H STEVE BMP #### [address] Basic Metabolic Panelon 09-26 Calcium mass conc 9.1 mg/dL Normal 8.2-10.2 [facility] Comment on above: Performed By: #### H STEVE BMP #### [address] Chloride molar conc 108 mmol/L Normal 95-114 [facility] Comment on above: Performed By: #### H STEVE, BMP #### [address] CO2 molar conc 22.8 mmol/L Normal 22.0-30.0 [facility] Comment on above: Performed By: #### H STEVE BMP #### [address] Creatinine mass conc 0.53 mg/dL Normal 0.44-1.03 [facility] [place] Comment on above: Performed By: #### H STEVE BMP #### [address] Creatinine mass conc 167.2790844772 mg/dL Normal [facility] [place] Comment on above: Result Comment: PERF ORMED BY: [place] [address] PATH[employer] CLAUDIA BAUER M.D. Performed By: #### H STEVE BMP #### [address] Estimated GFR ( Khloe > 60 Normal [facility] [place] Comment on above: Result Comment: GFR estimated reference range: According to KDOQI guidelines, <60 ml/min/1.73m2 is sufficient to diagnose a patient with chronic kidney disease. Performed By: #### H STEVE BMP #### [address] Estimated GFR (Non- Am > 60 Normal [facility] Comment on above: Performed By: #### H STEVE BMP #### [place] [address] [place] Glucose mass conc 101 mg/dL High 70-100 [facility] Comment on above: Result Comment: [place] Glucose Reference Range is dependent on time and content of last meal. Glucose of more than 200 mg/dL in a nonstressed, ambulatory subject supports the diagnosis of Diabetes Mellitus. ADA recommended reference range Performed By: #### H STEVE BMP #### [place] [address] [place] Potassium molar conc 3.2 mmol/L Low 3.5-5.1 [facility] [place] Comment on above: Performed By: #### H STEVE BMP #### [place] [address] [place] Sodium molar conc 137 mmol/L Normal 136-146 [facility] Comment on above: Performed By: #### H STEVE BMP #### [place] [address] [place] Urea nitrogen mass conc 3 mg/dL Low 9-23 [facility] Comment on above: Performed By: #### H STEVE BMP #### [facility] [address] [place] [address] Hepatic Panelon 10-09-2018 Albumin mass conc 3.2 g/dL Normal 3.2-5.5 [facility] Comment on above: Performed By: #### H STEVE BMP #### [address] Albumin/Globulin mass ratio 1.2 {ratio} Normal [facility] Comment on above: Performed By: #### H STEVE BMP #### [address] ALP enzyme act/vol 66 U/L Normal 32-92 [facility] Comment on above: Performed By: #### H STEVE BMP #### [address] ALT enzyme act/vol 89 U/L High 10-60 [facility] Comment on above: Performed By: #### H STEVE BMP #### [address] AST enzyme act/vol 156 U/L High 10-42 [facility] Comment on above: Performed By: #### H STEVE BMP #### [address] Bilirubin mass conc 0.5 mg/dL Normal 0.3-1.2 [facility] Comment on above: Performed By: #### H STEVE BMP #### [place] [address] [place] Bilirubin,Indirect 0.3 mg/dL Normal [facility] Comment on above: Performed By: #### H STEVE BMP #### [address] Bilirubin.direct mass conc 0.2 mg/dL Normal 0.0-0.4 [facility] [place] Comment on above: Performed By: #### H STEVE BMP #### [address] Globulin mass conc (S) 2.6 g/dL Normal [facility] [place] Comment on above: Performed By: #### H EPATIC, BMP #### [address] Protein mass conc 5.8 g/dL Low 6.1-7.9 [facility] Comment on above: Performed By: #### H EPATIC, BMP #### [address] Basic Metabolic Panelon 09-26 Calcium mass conc 9.2 mg/dL Normal 8.2-10.2 [facility] Comment on above: Performed By: #### H EPATIC, BMP, MG, [id number] #### [address] Chloride molar conc 105 mmol/L Normal 95-114 [facility] Comment on above: Performed By: #### H EPATIC, BMP, MG, [id number] #### [address] CO2 molar conc 24.1 mmol/L Normal 22.0-30.0 [facility] Comment on above: Performed By: #### H EPATIC, BMP, MG, [id number] #### [address] Creatinine mass conc 0.54 mg/dL Normal 0.44-1.03 [facility] [place] Comment on above: Performed By: #### H EPATIC, BMP, MG, [id number] #### [address] Creatinine mass conc [id number] mg/dL [facility] Comment on above: Performed By: #### H EPATIC, BMP, MG, [id number] #### [address] Estimated GFR ( Khloe > 60 Normal [facility] [place] Comment on above: Result Comment: GFR estimated reference range: According to KDOQI guidelines, <60 ml/min/1.73m2 is sufficient to diagnose a patient with chronic kidney disease. Performed By: #### H EPATIC, BMP, MG, [id number] #### [facility] [address] Estimated GFR (Non- Am > 60 Normal [facility] [place] Comment on above: Performed By: #### H EPATIC, BMP, MG, [id number] #### [facility] [address] Glucose mass conc 68 mg/dL Low 70-100 [facility] Comment on above: Result Comment: [place] Glucose Reference Range is dependent on time and content of last meal. Glucose of more than 200 mg/dL in a nonstressed, ambulatory subject supports the diagnosis of Diabetes Mellitus. ADA recommended reference range Performed By: #### H EPATIC, BMP, MG, [id number] #### [address] Potassium molar conc 3.6 mmol/L Normal 3.5-5.1 [facility] [place] Comment on above: Performed By: #### H EPATIC, BMP, MG, [id number] #### [address] Sodium molar conc 137 mmol/L Normal 136-146 [facility] Comment on above: Performed By: #### H EPATIC, BMP, MG, [id number] #### [address] Urea nitrogen mass conc 4 mg/dL Low 9-23 [facility] [place] Comment on above: Performed By: #### H EPATIC, BMP, MG, [id number] #### [facility] [address] [place] [address] Complete Blood Count Auto Di ffon 10-08-2018 Basophils #/vol (Bld) 0.0 10*3/uL Normal 0.0-0.2 [facility] Comment on above: Result Comment: PERF ORMED BY: [place] [address] PATH[employer] CLAUDIA BAUER M.D. Performed By: #### C BC, ETOH, CMP #### [facility] [address] [place] [address] [place] Basophils/100 WBC (Bld) 0.4 % Normal . [facility] [place] Comment on above: Performed By: #### C BC, ETOH, CMP #### [facility] [address] [place] [address] [place] Eosinophils #/vol (Bld) 0.0 10*3/uL Normal 0.0-0.45 [facility] [place] Comment on above: Performed By: #### C BC, ETOH, CMP #### [facility] [address] [place] [address] [place] Eosinophils/100 WBC (Bld) 0.4 % Normal . [facility] [place] Comment on above: Performed By: #### C BC, ETOH, CMP #### [address] Erythrocyte distribution width Ratio (RBC) 17.0 % High 11.9-15.3 [facility] [place] Comment on above: Performed By: #### C BC, ETOH, CMP #### [address] Hematocrit Volume Fraction (Bld) 40.2 % Normal 34.0-46.4 [facility] [place] Comment on above: Performed By: #### C BC, ETOH, CMP #### [address] Hemoglobin mass conc (Bld) 13.6 g/dL Normal 11.8-15.4 [facility] [place] Comment on above: Performed By: #### C BC, ETOH, CMP #### [place] [address] [place] Lymphocytes #/vol (Bld) 1.2 10*3/uL Normal 1.00-4.8 [facility] [place] Comment on above: Performed By: #### C BC, ETOH, CMP #### [place] [address] [place] Lymphocytes/100 WBC (Bld) 33.3 % Normal . [facility] [place] Comment on above: Performed By: #### C BC, ETOH, CMP #### [address] [place] [address] [place] MCH Entitic mass (RBC) 33.8 g/dL Normal 32.0-35.0 [facility] [place] Comment on above: Performed By: #### C BC, ETOH, CMP #### [address] MCH Entitic mass (RBC) 31.8 pg Normal 24.7-34.3 [facility] [place] Comment on above: Performed By: #### C BC, ETOH, CMP #### [address] MCV Entitic volume (RBC) 94.1 fL Normal 80-100 [facility] [place] Comment on above: Performed By: #### C BC, ETOH, CMP #### [address] Monocytes #/vol (Bld) 0.3 10*3/uL Normal 0.0-0.8 [facility] [place] Comment on above: Performed By: #### C BC, ETOH, CMP #### [address] Monocytes/100 WBC (Bld) 6.8 % Normal . [facility] [place] Comment on above: Performed By: #### C BC, ETOH, CMP #### [address] Neutrophils #/vol (Bld) 2.2 10*3/uL Normal 1.8-7.7 [facility] [place] Comment on above: Performed By: #### C BC, ETOH, CMP #### [address] Neutrophils/100 WBC (Bld) 59.1 % Normal . [facility] [place] Comment on above: Performed By: #### C BC, ETOH, CMP #### [address] Nucleated RBC/100 WBC Ratio (Bld) 0.1 % Normal 0-0.5 [facility] [place] Comment on above: Performed By: #### C BC, ETOH, CMP #### [address] Platelet mean volume Entitic volume (Bld) 9.3 fL Normal 6.3-10.7 [facility] [place] Comment on above: Performed By: #### C BC, ETOH, CMP #### [facility] [address] Platelets #/vol (Bld) 52 10*3/uL Low 150-450 [facility] [place] Comment on above: Performed By: #### C BC, ETOH, CMP #### [address] RBC #/vol (Bld) 4.27 10*6/uL Normal 3.60-5.00 [facility] Comment on above: Performed By: #### C BC, ETOH, CMP #### [address] WBC #/vol (Bld) 3.7 10*3/uL Low 4.5-11.0 [facility] Comment on above: Performed By: #### C BC, ETOH, CMP #### [address] Comprehensive Metabolic Pane danitza 10-08-2018 Albumin mass conc 4.4 g/dL Normal 3.2-5.5 [facility] Comment on above: Performed By: #### C BC, ETOH, CMP #### [address] Albumin/Globulin mass ratio 1.6 {ratio} Normal [facility] [place] Comment on above: Performed By: #### C BC, ETOH, CMP #### [address] ALP enzyme act/vol 81 U/L Normal 32-92 [facility] Comment on above: Performed By: #### C BC, ETOH, CMP #### [address] ALT enzyme act/vol 76 U/L High 10-60 [facility] Comment on above: Performed By: #### C BC, ETOH, CMP #### [address] [address] [place] AST enzyme act/vol 97 U/L High 10-42 [facility] Comment on above: Performed By: #### C BC, ETOH, CMP #### [facility] [address] Bilirubin mass conc 0.7 mg/dL Normal 0.3-1.2 [facility] Comment on above: Performed By: #### C BC, ETOH, CMP #### [facility] [address] Calcium mass conc 10.3 mg/dL High 8.2-10.2 [facility] Comment on above: Performed By: #### C BC, ETOH, CMP #### [address] Chloride molar conc 104 mmol/L Normal 95-114 [facility] Comment on above: Performed By: #### C BC, ETOH, CMP #### [facility] [address] [place] [address] CO2 molar conc 25.6 mmol/L Normal 22.0-30.0 [facility] [place] Comment on above: Performed By: #### C BC, ETOH, CMP #### [facility] [address] [place] [address] Creatinine mass conc 0.62 mg/dL Normal 0.44-1.03 [facility] [place] Comment on above: Performed By: #### C BC, ETOH, CMP #### [facility] [address] [place] [address] [place] Creatinine mass conc 128.8784725872 mg/dL Normal [facility] Comment on above: Result Comment: PERF ORMED BY: [place] [address] PATH[employer] CLAUDIA BAUER M.D. Performed By: #### C BC, ETOH, CMP #### [place] [address] [place] Estimated GFR ( Khloe > 60 Normal [facility] Comment on above: Result Comment: GFR estimated reference range: According to KDOQI guidelines, <60 ml/min/1.73m2 is sufficient to diagnose a patient with chronic kidney disease. Performed By: #### C BC, ETOH, CMP #### [facility] [address] Estimated GFR (Non- Am > 60 Normal [facility] [place] Comment on above: Performed By: #### C BC, ETOH, CMP #### [facility] [address] Globulin mass conc (S) 2.8 g/dL Normal [facility] [place] Comment on above: Performed By: #### C BC, ETOH, CMP #### [address] Glucose mass conc 95 mg/dL Normal 70-100 [facility] Comment on above: Result Comment: [place] Glucose Reference Range is dependent on time and content of last meal. Glucose of more than 200 mg/dL in a nonstressed, ambulatory subject supports the diagnosis of Diabetes Mellitus. ADA recommended reference range Performed By: #### C BC, ETOH, CMP #### [address] Potassium molar conc 4.1 mmol/L Normal 3.5-5.1 [facility] Comment on above: Performed By: #### C BC, ETOH, CMP #### [address] Protein mass conc 7.2 g/dL Normal 6.1-7.9 [facility] Comment on above: Performed By: #### C BC, ETOH, CMP #### [address] Sodium molar conc 140 mmol/L Normal 136-146 [facility] Comment on above: Performed By: #### C BC, ETOH, CMP #### [place] [address] [place] Urea nitrogen mass conc 4 mg/dL Low 9-23 [facility] [place] Comment on above: Performed By: #### C BC, ETOH, CMP #### [place] [address] [place] Ethyl Alcohol Profileon 09-26 Ethanol mass conc mg/dL Normal [facility] Comment on above: Performed By: #### C BC, ETOH, CMP #### [facility] [address] Percent Ethanol Test not performed Normal [facility] Comment on above: Result Comment: PERF ORMED BY: [place] [address] PATH[employer] CLAUDIA BAUER M.D. Performed By: #### C BC, ETOH, CMP #### [facility] [address] [place] [address] Hepatic Panelon 10-08-2018 Albumin mass conc 3.7 g/dL Normal 3.2-5.5 [facility] Comment on above: Performed By: #### H EPATIC, BMP, MG, [id number] #### [facility] [address] [place] [address] Albumin/Globulin mass ratio 1.5 {ratio} Normal [facility] Comment on above: Performed By: #### H EPATIC, BMP, MG, [id number] #### [facility] [address] [place] [address] ALP enzyme act/vol 70 U/L Normal 32-92 [facility] Comment on above: Performed By: #### H EPATIC, BMP, MG, [id number] #### [facility] [address] [place] [address] ALT enzyme act/vol 77 U/L High 10-60 [facility] Comment on above: Performed By: #### H EPATIC, BMP, MG, [id number] #### [facility] [address] [place] [address] AST enzyme act/vol 142 U/L High 10-42 [facility] Comment on above: Performed By: #### H EPATIC, BMP, MG, [id number] #### [facility] [address] [place] [address] Bilirubin mass conc 0.9 mg/dL Normal 0.3-1.2 [facility] Comment on above: Performed By: #### H EPATIC, BMP, MG, [id number] #### [facility] [address] [place] [address] Bilirubin,Indirect 0.7 mg/dL Normal [facility] Comment on above: Performed By: #### H EPATIC, BMP, MG, [id number] #### [facility] [address] [place] [address] Bilirubin.direct mass conc 0.2 mg/dL Normal 0.0-0.4 [facility] [place] Comment on above: Performed By: #### H EPATIC, BMP, MG, [id number] #### [address] Globulin mass conc (S) 2.5 g/dL Normal [facility] [place] Comment on above: Performed By: #### H EPATIC, BMP, MG, [id number] #### [address] Protein mass conc 6.2 g/dL Normal 6.1-7.9 [facility] Comment on above: Performed By: #### H EPATIC, BMP, MG, [id number] #### [address] Magnesiumon 10-08-2018 Magnesium mass conc 1.7 mg/dL Normal 1.6-2.6 [facility] Comment on above: Performed By: #### H EPATIC, BMP, MG, [id number] #### [facility] [address] [place] [address] Vit. B12/Folate Profileon Cobalamin (Vitamin B12) mass conc 337 pg/mL Normal 180-914 [facility] [place] Comment on above: Performed By: #### H EPATIC, BMP, MG, [id number] #### [facility] [address] [place] [address] Folate 8.9 ng/mL Normal [facility] Comment on above: Result Comment: [place] te reference range: >5.9 ng/ml The WHO technical consultation on folate and vitamin b12 deficiencies has determined that folate concentrations less than 4 ng/ml are considered deficient. PERFORMED BY: [facility] [address] [place] [address] PATHOLOGIST [employer] CLAUDIA BAUER M.D. Performed By: #### H EPATIC, BMP, MG, [id number] #### [address] [address] [facility] Vital Signs Date Time Vital Sign Value Performing Clinician Facility 04-26-2024 15:45-0400 Body height 162.6 cm Lizzeth Cortez PA Work Phone: [facility] 04-26-2024 15:45-0400 Body mass index (BMI) [Ratio] 29.63 kg/m2 Lizzeth Cortez PA Work Phone: [facility] 04-26-2024 15:45-0400 Body temperature 97.9 [degF] Lizzeth Cortez PA Work Phone: [facility] 04-26-2024 15:45-0400 Body weight 78.29 kg Lizzeth Cortez PA Work Phone: [facility] 04-26-2024 15:45-0400 Diastolic blood pressure 70 mm[Hg] Lizzeth Cortez PA Work Phone: [facility] 04-26-2024 15:45-0400 Heart rate 108 /min Lizzeth Cortez PA Work Phone: [facility] 04-26-2024 15:45-0400 SaO2% (BldA) [Mass fraction] 96 % Lizzeth Cortez PA Work Phone: [facility] 04-26-2024 15:45-0400 Systolic blood pressure 112 mm[Hg] Lizzeth Cortez PA Work Phone: [facility] 04-13-2024 16:13-0400 Body height 162.6 cm Adin Guzman DPM Work Phone: [facility] 04-13-2024 16:13-0400 Body mass index (BMI) [Ratio] 29.35 kg/m2 Adin Guzman DPM Work Phone: [facility] 04-13-2024 16:13-0400 Body weight 77.56 kg Adin Guzman DPM Work Phone: [facility] 04-13-2024 16:13-0400 Diastolic blood pressure 80 mm[Hg] Adin Guzman DPM Work Phone: [facility] 04-13-2024 16:13-0400 Heart rate 85 /min Adin Guzman DPM Work Phone: [facility] 04-13-2024 16:13-0400 Systolic blood pressure 126 mm[Hg] Adin Guzman DPM Work Phone: [facility] 07-20-2023 14:04-0500 Diastolic blood pressure 76 mm[Hg] Ann Vidal MD Work Phone: [facility] 07-20-2023 14:04-0500 Heart rate 89 /min Ann Vidal MD Work Phone: [facility] 07-20-2023 14:04-0500 Systolic blood pressure 130 mm[Hg] Ann Vidal MD Work Phone: [facility] 05-12-2023 13:48-0500 Respiratory rate 16 /min Neeraj TAMMY [facility] 06-05-2020 12:47-0500 BMI (Body Mass Index) 30.04 kg/m2 [facility] 06-05-2020 12:47-0500 Body Temperature 98.8 [degF] [facility] 06-05-2020 12:47-0500 Body weight 79.38 kg [facility] 06-05-2020 12:47-0500 BP Diastolic 79 mm[Hg] [facility] 06-05-2020 12:47-0500 BP Systolic 114 mm[Hg] [facility] 06-05-2020 12:47-0500 Height 162.6 cm [facility] 06-05-2020 12:47-0500 Pulse (Heart Rate) 118 /min Radha Li [facility] 06-05-2020 12:47-0500 Pulse Oximetry 95 % Radha Li [facility] 06-05-2020 12:47-0500 Respiratory Rate 14 /min Radha Li [facility] 05-21-2020 18:13-0500 BMI (Body Mass Index) 30.04 kg/m2 [facility] 05-21-2020 18:13-0500 Body Temperature 97.9 [degF] [facility] 05-21-2020 18:13-0500 Body weight 79.[address] [facility] 05-21-2020 18:13-0500 BP Diastolic 88 mm[Hg] [facility] 05-21-2020 18:13-0500 BP Systolic 122 mm[Hg] [facility] 05-21-2020 18:13-[address] [facility] 05-21-2020 18:13-0500 Pulse (Heart Rate) 109 /min [facility] 05-21-2020 18:13-0500 Pulse Oximetry 97 % [facility] 05-21-2020 18:13-0500 Respiratory Rate 18 /min [facility] 10-11-2019 14:50-0400 BMI (Body Mass Index) 27.12 kg/m2 Radha Li [facility] 10-11-2019 14:50-0400 Body Temperature 97.5 [degF] [facility]-11[facility] 14:50-0400 Body weight 71.67 kg [facility] 10-11-2019 14:50-0400 BP Diastolic 70 mm[Hg] [facility] 10-11-[facility] 14:50-0400 BP Systolic 126 mm[Hg] [facility] 10-11-2019 14:50-0400 Height 162.6 [facility] 10-11-2019 14:50-0400 Pulse (Heart Rate) 91 /min [facility] 10-11-2019 14:50-0400 Pulse Oximetry 96 % [facility] 10-11-2019 14:50-0400 Respiratory Rate 16 /min Radha Li [facility] 10-09-2019 08:38-0400 BMI (Body Mass Index) 27.12 kg/m2 Ollie Feng [facility] 10-09-2019 08:38-0400 Body Temperature 98.1 [degF] Ollie Feng [facility] 10-09-2019 08:38-0400 Body weight 71.67 kg Ollie Feng [facility] 10-09-2019 08:38-0400 BP Diastolic 75 mm[Hg] Ollie Feng [facility] 10-09-2019 08:38-0400 BP Systolic 112 mm[Hg] Ollie Feng [facility] 10-09-2019 08:38-0400 Height 162.6 cm Ollie Feng [facility] 10-09-2019 08:38-0400 Pulse (Heart Rate) 89 /min Ollie Feng [facility] 10-09-2019 08:38-0400 Pulse Oximetry 97 % Ollie Feng [facility] 10-09-2019 08:38-0400 Respiratory Rate 16 /min Ollie Feng [facility] 10-07-2019 13:51-0400 BP Diastolic 83 mm[Hg] Gwendolynjewel Tee [facility] 10-07-2019 13:51-0400 BP Systolic 110 mm[Hg] [facility] 10-07-2019 13:51-0400 Pulse (Heart Rate) 76 /min Gwendolyn [facility] 10-07-2019 13:51-0400 Pulse Oximetry 98 % Gwendolynjewel Tee [facility] 10-07-2019 13:51-0400 Respiratory Rate 16 /min [facility] 10-07-2019 12:02-0400 Body Temperature 97.5 [degF] Gwendolynjewel Tee [facility] 10-07-2019 11:57-0400 BMI (Body Mass Index) 27.12 kg/m2 Gwendolynjewel Tee [facility] 10-07-2019 11:57-0400 Body weight 71.67 kg Gwendolynjewel Tee [facility] 10-07-2019 11:57-0400 Height 162.6 cm Gwendolynjewel Tee [facility] 08-29-2019 14:15-0500 BP Diastolic 81 mm[Hg] Boone Resendiz [facility] 08-29-2019 14:15-0500 BP Systolic 116 mm[Hg] Boone Resendiz [facility] 08-29-2019 14:15-0500 Pulse (Heart Rate) 84 /min Boone Resendiz [facility] 08-29-2019 14:15-0500 Pulse Oximetry 97 % Boone Resendiz [facility] 08-29-2019 13:01-0500 BMI (Body Mass Index) 23.69 kg/m2 Boone Resendiz [facility] 08-29-2019 13:01-0500 Body Temperature 98.1 [degF] Boone Resendiz [facility] 08-29-2019 13:01-0500 Body weight 62.6 kg Boone Resendiz [facility] 08-29-2019 13:01-0500 Height 162.6 cm Boone Resendiz [facility] 08-29-2019 13:01-0500 Respiratory Rate 18 /min Boone Resendiz [facility] Encounters Encounter Date Encounter Type Care Provider Facility Start: 04-26-2024 End: 04-26-2024 Office outpatient visit 25 minutes Lizzeth Cortez PA Work Phone: [facility] Comment on above: Left breast abscess (Primary Dx) Start: 04-26-2024 End: 04-26-2024 ambulatory LIZZETH CORTEZ Not Available Start: 04-26-2024 End: 04-26-2024 Telephone encounter Darnell Melody Nowak DO Work Phone: [facility] Start: 04-13-2024 End: 04-13-2024 ambulatory [...] Start: 07-20-2023 End: 07-20-2023 ambulatory ANN VIDAL [facility] Start: 07-20-2023 End: 07-20-2023 Office outpatient new 45 minutes Ann Vidal MD Work Phone: [facility] Surgical Oncology Comment on above: Abscess [...] End: 05-19-2023 ambulatory Neeraj R NILL Facility: [facility] Start: 05-18-2023 End: 05-18-2023 Patient encounter procedure Neeraj R NILL General Surgery [facility] Start: 05-12-2023 End: 05-13-2023 ambulatory Neeraj R NILL Facility: [facility] Start: 05-12-2023 End: 05-12-2023 Patient encounter procedure Neeraj R NILL General Surgery Nill/Said [facility] Start: 05-03-2023 ambulatory Neeraj NILL Facility: [facility] [...] Patient encounter procedure PHYSICIAN SHAHNAZ [facility] Start: 06-12-2020 End: 06-12-2020 Patient encounter procedure HESHAM BARNES [facility] Start: 06-05-2020 End: 06-05-2020 Emergency department patient visit PHYSICIAN [facility] Start: 06-05-2020 End: 06-05-2020 Emergency department patient visit Radha Li Work Phone: [facility] Emergency Department Comment on above: COVID-19 virus infec tion (Primary Dx); Nonintractable headache, unspecified chronicity pattern, unspecified headache type; Myalgia; Fatigue, unspecified type Start: 05-21-2020 End: 05-21-2020 Emergency department patient visit PHYSICIAN [facility] Start: 05-21-2020 End: 05-21-2020 Emergency department patient visit Onofre Rowell Work Phone: [facility] Emergency Department Comment on above: COVID-19 virus infec tion (Primary Dx) Start: 2020 End: 2020 Documentation procedure [facility] Primary [facility] Comment on above: No show inital appoi ntment 01/29/2020 Start: 10-11-2019 End: 10-11-2019 Emergency department patient visit PHYSICIAN [facility] Start: 10-11-2019 End: 10-11-2019 Emergency department patient visit Radha iL Work Phone: [facility] Emergency Department Comment on above: Wound check, abscess (Primary Dx); Dressing change Start: 10-09-2019 End: 10-09-2019 Emergency department patient visit PHYSICIAN [facility] Start: 10-09-2019 End: 10-09-2019 Emergency department patient visit Ollie Feng Work Phone: [facility] Emergency Department Comment on above: Encounter for rechec k of abscess following incision and drainage (Primary Dx) Start: 10-07-2019 End: 10-07-2019 Emergency department patient visit PHYSICIAN NO [facility] Start: 10-07-2019 End: 10-07-2019 Emergency department patient visit Gwendolyn Tee Work Phone: [facility] Emergency Department Comment on above: Abscess of left [address] st (Primary Dx) Start: 08-29-2019 End: 08-29-2019 Emergency department patient visit BOONE RESENDIZ [facility] Start: 08-29-2019 End: 08-29-2019 Emergency department patient visit Boone Resendiz Work Phone: [facility] Emergency Department Comment on above: Nausea and vomiting, intractability of vomiting not specified, unspecified vomiting type (Primary Dx); Epigastric pain; Alcohol abuse Start: 10-08-2018 End: 10-10-2018 Evaluation and management of inpatient Jericho Barreto Facility:[facility] Procedures Date Procedure Procedure Detail Performing Clinician [...] Td Vaccines (2 - Td or Tdap) [facility] Start: 05-12-2024 End: 05-12-2024 Patient encounter procedure 05/12/2024 11:00 AM EST Office Visit [facility] [address] [place] [phone] Lizzeth Cortez PA [address] [place] [address] [facility] Start: 04-28-2024 End: 04-28-2024 Patient encounter procedure 04/28/2024 3:40 PM EDT Office Visit [facility] [address] [place] [phone] Lizzeth Cortez PA [address] [place] [address] [facility] Start: 02-27-2024 Influenza vaccination Influenza Vacc ine (#1) [facility] Start: 02-26-2023 Influenza vaccination Influenza Vacc ine [facility] Start: 06-12-2020 End: 06-12-2020 Telemedicine 06/12/2020 Telemedicine Primary Care Willard Hesham Perales, [employer] [address] [place] [address] [phone] [facility] Primary [facility] Start: 05-22-2020 End: 05-22-2020 Office Visit 05/22/2020 Office Visit Obstetrics and Gynecology Franklyn Gabriel MD [facility] [place] [address] [phone] [facility] Obstetrics [facility] Gynecology Start: 02-27-2020 Influenza vaccinatio n given Sequential Influenza Vaccine (#1) [facility] Start: 02-26-2019 Influenza vaccinatio n given Sequential Influenza Vaccine (#1) [facility] Start: 2017 Screening for malign ant neoplasm of cervix [facility] Start: 01-31-2008 Screening for malign ant neoplasm of cervix Pap Smear [facility] Start: 2005 Adult BMI Screening Adult BMI Screen ing [facility] Start: 2005 Hepatitis C antibody , confirmatory test Hepatitis C Screening [facility] Start: 2002 HIV screening HIV Screening [facility] Start: 1999 Adolescent depressio n screening assessment [facility] Start: 1999 Tobacco Screening Tobacco Screening [facility] Start: 1990 History and physical examination, annual for health maintenance Wellness Visit [facility] Start: 1987 Depression screening using PHQ-9 (Patient Health Questionnaire 9) score Depression Screening (PHQ9) [facility] Start: 1987 Screening for malign ant neoplasm of cervix Pap Smear [facility] Start: 1987 Tetanus vaccination Tetanus: Every 1 0yrs [facility] End: 10-07-2019 Aerobic microbial culture Wound Aerobic Culture Microbiology Routine Once for 1 Occurrences starting 10/07/2019 until 10/07/2019 [facility] Comment on above: Once for 1 Occurrenc es starting 10/07/2019 until 10/07/2019 Aerobic microbial culture Wound Aerobic Culture Microbiology Routine 10/07/2019 1:30 PM EDT [facility] End: 10-07-2019 Wound Anaerobic Culture Wound Anaerobic Culture Microbiology Routine Once for 1 Occurrences starting 10/07/2019 until 10/07/2019 [facility] Comment on above: Once for 1 Occurrenc es starting 10/07/2019 until 10/07/2019 Wound Anaerobic Culture Wound An aerobic Culture Microbiology Routine 10/07/2019 1:30 PM EDT [facility] Immunizations Immunization Date Immunization Notes Care Provider Ceasar cotto 06-01-2011 influenza virus vaccine, unspecified formulation Ann Vidal MD Work Phone: [employer] NEGATED: Highlighted row has not occurred!05-12-2023 influenza virus vaccine, unspecified formulation Neeraj MUNOZ General Surgery [facility] Payers Date Payer Category Payer Private Health Insurance [employer] [id number] 2023 Unknown [employer] M [place] SUPER[employer] [id number] 2023-Present [phone] [address] [place] [address] [id number] 2023 Unknown [id number] 2019 Private Health Insurance MIAN Mark IGNA CHOICE FUND-ANY CHOICE FUND [id number] 2019-Present [id number] 2019 Private Health Insurance [id number] 2018 Medicaid [employer] MEDICAID [place] [employer] MED[employer] [id number] 2018-Present [id number] 2018 Private Health Insurance xxx [id number] 2018 Self-pay 2018 Unknown [id number] 2015 Unknown [id number] 1987 Unknown [id number] 2.16.840.1.317740.3.579.2. 903 1987 Unknown [id number] 2.16.840.1.026608.3.579.2. 903 1987 Unknown [id number] 2.16.840.1.674654.3.579.2. 903 1987 Unknown [id number] 2.16.840.1.827714.3.579.2. 903 1987 Unknown [id number] 2.16.840.1.815533.3.579.2. 903 1987 Unknown [id number] 2.16.840.1.578929.3.579.2. 903 1987 Unknown [id number] 2.16.840.1.027500.3.579.2. 903 1987 Unknown [id number] 2.16.840.1.293288.3.579.2. 903 1987 Unknown [id number] 2.16.840.1.350722.3.579.2. 593 1987 Unknown [id number] 2.16.840.1.930289.3.579.2. 593 1987 Unknown [id number] 2.16.840.1.081949.3.579.2. 593 1987 Unknown [id number] 2.16.840.1.600207.3.579.2. 593 1987 Unknown [id number] 2.16.840.1.851801.3.579.2. 593 1987 Unknown [id number] 2.16.840.1.453571.3.579.2. 727 1987 Unknown [id number] 2.16.840.1.957207.3.579.2. 727 1987 Unknown [id number] 2.16.840.1.586734.3.579.2. 727 1987 Unknown [id number] 2.16840.1.598921.3.579.2. 727 1987 Unknown [id number] 2.16.840.1.983097.3.579.2. 727 1987 Unknown [id number] 2.16.840.1.722695.3.579.2. 1286 1987 Unknown [id number] 2.16.840.1.434202.3.579.2. 9 1987 Unknown [id number] 2.16840.1.683188.3.579.2. 1259 1987 Unknown [id number] 2.16.840.1.669259.3.579.2. 1259 1987 Unknown [id number] 2.16.840.1.019016.3.579.2. 1258 1987 Unknown [id number] 2.16.840.1.221617.3.579.2. 1259 1987 Unknown [id number] 2.16.840.1.297895.3.579.2. 1259 1987 Unknown [id number] 2.16840.1.466807.3.579.2. 1259 1987 Unknown [id number] 2.16.840.1.726854.3.579.2. 1259 1959 Private Health Insurance [id number] 1959 Unknown [id number] Unknown [id number] 2.16.840.1.043998.3.579.2. 531 Social History Date Type Detail Facility Start: 06-28-2000 End: 03-23-2024 Tobacco smoking status HIIS Current every day smoker [facility] Start: 06-28-2000 History of tobacco use Cigarette Smo ker [facility] Start: 08-29-2019 End: 06-04-2023 Cigarettes smoked current (pack per day) - Reported [facility] Start: 08-29-2019 End: 04-26-2024 Alcohol intake Current drinker of alcohol (finding) [facility] Start: 08-29-2019 Alcohol Comment daily [facility] Start: 1987 Sex Assigned At Not on file [facility] Start: 10-07-2019 Alcohol Comment socially [facility] Exposure to SARS-CoV -2 (event) Unable to assess [facility] Start: 05-21-2020 End: 03-23-2024 Tobacco use and exposure Never used [facility] Exposure to SARS-CoV -2 (event) Yes [facility] Start: 05-12-2023 Tobacco smoking status Heavy t obacco smoker (finding) [facility] Tobacco smoking status Never [facility] Start: 01-04-2019 End: 06-04-2023 Sex Assigned At Female Rajendra 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 Constitutional: General: She is not in [...] Pt verbalized understanding. documented in this encounter [facility] 04-26-2024 Telephone encounter Note Pt requesting an antibiotic and pain med for possible infection in lt breast. Its red and quarter in size above nipple started 2 days ago. DDM in [place]. She made appointment for Wednesday. She said if she can't make that she will go to ER. Please call ok to leave message [facility] 04-26-2024 Miscellaneous Notes Pt requesting an antibiotic and pain med for possible infection in lt breast. Its red and quarter in size above nipple started 2 days ago. DDM in [place]. She made appointment for Wednesday. She said if she can't make that she will go to ER. Please call ok to leave message documented in this encounter [facility] 04-13-2024 History of Presen t illness Narrative [...] min Stress: No Stress Concern Present (06/04/2023) [employer] [place] [employer] - Occupational Stress Questionnaire Feeling of Stress : Not at all Social Connections: Socially Integrated (06/04/2023) Social Connection and Isolation Panel [NHANES] Frequency of Communication with Friends and Family: More than three times a week Frequency of Social Gatherings with Friends and Family: Twice a week Attends Judaism Services: More than 4 times per year [...] Patient may continue with conservative treatments including [id number] anti-inflammatories and other treatments suggested today. Patient may want to be scheduled for surgical intervention in the near future. Patient states she would like to have the right and left foot mass removed at the same time and ganglion cyst removal to left and right foot. Her primary care doctor is Dr. Imtiaz Aldridge and would like [facility] for postoperative pain instructed to call has will schedule post call in the near future when she decides good timeframe to have surgical procedure Adin Guzman DPM documented in this encounter [facility] 07-20-2023 History of Presen t illness Narrative [...] genetic testing? No Do you have Ashkenazi Alevism ancestry? No I reviewed notes from primary [...] for smoking cessation. documented in this encounter [employer] Evaluation + Plan note Future Appointments Appointment Date:05/18/2023 01:00:00 PM Scheduled Provider:Neeraj MUNOZ MD Location:[facility] Appointment Type: Post Op 15 General [facility] Evaluation note Diagnosis Abscess of left breast- Primary Abscess of right breast Tobacco abuse Tobacco use disorder [facility] Diagnosis Ganglion cyst of right foot- Primary Mass of right foot Mass of left foot Plantar fasciitis Plantar fascial fibromatosis [facility] Diagnosis Left breast abscess- Primary documented in this [facility] Narrative No data available for this section [facility] Discharge instructions No data available for this section [facility] InstructionsNot on filedocumented in this encounter [facility] No data available for this section [facility] Summary Purpose Family History No Family History [...] FoundDocuments on File Type Date Recorded Patient [employer] 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 Advance Directives and Livin g Will 08/29/2019 1:59 PM Documents on File Type Date Recorded Patient 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 Advance Directives and Livin g Will 10/07/2019 12:14 PM Documents on File Type Date Recorded Patient 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 Advance Directives and Livin g Will 10/09/2019 8:52 AM Documents on File Type Date Recorded Patient 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 * Abdominal Pain ([place]an) * Nausea and Vomiting ([place]) documented in this encounter* Attachments The following attachments cannot be sent through Care Everywhere. * Abscess: Skin ([place]) documented in this encounter* Attachments The following attachments cannot be sent through Care Everywhere. * Abscess: Skin ([place]) documented in this encounter* Attachments The following attachments cannot be sent through Care Everywhere. * Abscess: Skin ([place]) documented in this encounter* Instructions* Ajay Duran PA-C - 05/21/2020 Stay home and away from other people. Rest, fluids, Tylenol. Return for difficulty breathing, uncontrolled fevers, or any other problems or concerns. You did test positive for COVID-19 today. * Attachments The following attachments cannot be sent through Care Everywhere. * COVID-19 SELF ISOLATION DISCHARGE INSTRUCTIONS * Coronavirus Disease (COVID-19): General Info ([place]an) documented in this encounter* Attachments The following attachments cannot be sent through Care Everywhere. * Fatigue ([place]) * Coronavirus Disease (COVID-19): General Info ([place]an) * COVID-19: Taking Care of Yourself If You Have It: Video ([place]an) * Myalgia ([place]) documented in this encounter Assessments Diagnosis Nausea [...] and content) DATE CREATED AUTHOR 10/10/2018 [facility] DATE CREATED AUTHOR AUTHOR'S ORGANIZ ATION 06/13/2020 [facility] DATE CREATED AUTHOR AUTHOR'S ORGANIZ ATION 10/09/2020 [facility] DATE CREATED AUTHOR AUTHOR'S ORGANIZ ATION 12/17/2021 [facility] DATE CREATED AUTHOR AUTHOR'S ORGANIZ ATION 06/07/2023 [facility] DATE CREATED AUTHOR AUTHOR'S ORGANIZ ATION 07/23/2023 [facility] DATE CREATED AUTHOR AUTHOR'S ORGANIZ ATION 04/28/2024 [facility] EPIC Reason for Visit [...] of right breast Darnell Nowak DO [address] [place] [address] Ann Vidal MD [address] [facility] [address] [place] [address] Referral ID Status Reason Start Date Expiration Date V isits Requested Visits Authorized [id number] Pending Review 06/23/2023 06/22/2024 1 1 Reason [...] ED Notes (unrecognized secti on and content) [facility][1] ED Physician Note: NAME: Shannan Carter 34 y.o. CSN: [id number] PCP: Physician No Clinical Impression: 1. Nausea [...] for 10 days . Follow-up Information 1. [facility] - Primary Care Services. Why: Recheck of todays complaint [address] [facility] [address] 2. Miguel Sarkar III, MD. Specialties: General Surgery, Interventional Radiology, Breast Surgery Why: Recheck of todays complaint [address] [facility] [address] 3. [facility] Emergency Department. Specialty: Emergency Medicine Why: If symptoms worsen [address] [place] [address] Contact information for after-discharge care Follow-up information [...] file Gets together: Not on file Attends muslim service: Not on file Active member of [...] Abnormal; Notable for the following components: Specific [place] 1.002 (*) Blood, Urine Large (*) All [...] Procedure Abnormality Status --------- ------ CBC Auto Differential[[id number]] Abnormal Final result Please view results for these tests on the individual orders. CT Abdomen Pelvis With IV Contrast Only Final Result 1. Fairly diffuse colonic wall thickening that may reflect incomplete bowel distention and spasm versus a mild colitis. There is no bowel obstruction. The appendix is normal. 2. Hepatic steatosis. Workstation ID: [id number] Procedures: Procedures ED Course/ Medical Decision Making: [...] hypertension. . Ajay Duran PA-C ED Physician Enlisted Advisor [facility][1] Emergency Department (Please note that portions of this note have been completed with a voice recognition software. Efforts were made to correct any errors, but occasionally words are mis-transcribed.) Ajay Duran PA-C 08/29/19 1511 Also reports that she went on an alcohol binge last weekend which flared it up. Pt reports Its my pancreas. States she is usually seen at [facility] and recently moved here, has a history of pancreatitis. documented in this encounter Associated Order(s): Incision/Drainage [facility][1] ED Physician Note: NAME: Shannan Carter 34 y.o. CSN: [id number] PCP: Physician No Chief Complaint: Abscess Clinical [...] or uses a tobacco product, I did program counselor them on benefits and resources of [...] Take with food . Follow-up Information 1. [facility] - Primary Care Services. Why: for symptom reheck [address] [facility] [address] 2. [facility] Emergency Department. Specialty: Emergency Medicine Why: If symptoms worsen [address] [place] [address] Contact information for after-discharge care Follow-up information [...] of the left breast surrounding her area [place]. Patient reports associated drainage. Denies any fever, [...] immunocompromised or diabetic. 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 Some grammatical or spelling errors may occur using the system. ARI López, ENP-C ED Nurse Practitioner [facility][1] Emergency Department (Please note that portions of this note have been completed with a voice recognition software. Efforts were made to correct any errors, but occasionally words are mis-transcribed.) Maria Elena West CNP 10/07/19 1439 Patient states, I had one here before 2 or 3 years ago. Patient states, I have an abscess on my boob. documented in this encounter [facility][1] ED Physician Note: NAME: Shannan Carter 34 y.o. CSN: [id number] PCP: Physician No ED Course / Medical [...] file Gets together: Not on file Attends muslim service: Not on file Active member of [...] Drainage from breat noted think and pus-like [facility][1] ED Physician Note: NAME: Shannan Carter 34 y.o. CSN: [id number] PCP: Physician No ED Course / Medical [...] does lift heavy boxes. Recommend follow-up with [facility] in a week for recheck. Clinical [...] file Gets together: Not on file Attends muslim service: Not on file Active member of [...] hypertension. . This chart was documented with [employer] system. There may be spelling errors as a result. Colin Loaiza PA-C [facility][1] Emergency Department (Please note that portions of this note have been completed with a voice recognition software. Efforts were made to correct any errors, but occasionally words are mis-transcribed.) Colin Loaiza PA-C 10/11/19 1510 Pt into ER states I need to get the packing taken out of my boob. I don't have a family doctor so I came here. documented in this encounter [facility][1] ED Physician Note: NAME: Shannan Carter 35 y.o. CSN: [id number] PCP: Physician No Clinical Impression: 1. COVID-19 virus infection Disposition: Patient is being discharged to home Follow-up Information 1. [facility]. Why: Recheck of todays complaint [address] [facility] [id number] [phone] 2. [facility] Emergency Department. Specialty: Emergency Medicine Why: If symptoms worsen [address] [place] [phone] Contact information for after-discharge care Follow-up information [...] file Gets together: Not on file Attends muslim service: Not on file Active member of [...] at the following links: For Healthcare Providers: https://www.fda.gov/media/220923/download For Patients: https://www.fda.gov/media/847960/download No orders to display Procedures: Procedures ED [...] hypertension. . Ajay Duran PA-C ED Physician Enlisted Advisor [facility][1] Emergency Department (Please note that portions of this note have been completed with a voice recognition software. Efforts were made to correct any errors, but occasionally words are mis-transcribed.) Ajay Duran PA-C 05/21/201903 Pt presents to ED with c/o cough and fatigue that started Wednesday. Pt states that she lives with someone who is positive for covid documented in this encounter [facility][1] ED Physician Note: NAME: Shannan Carter 35 y.o. CSN: [id number] PCP: Physician No Clinical Impression: 1. COVID-19 [...] printed (June 12 at 2 pm) [address] [facility] [place] [address] Contact information for after-discharge care Follow-up information [...] to Toradol IM, I spoke with social media sr strategy manager who arranged for an outpatient appointment with her urgently, neuro exam is nonfocal, she is making informed decision. I discussed with the patient supportive care, signs to return to ED, infectious/neuro warning signs, follow up with pcp; questions answered; patient understands and agrees with plan; . . If patient is currently a smoker or uses a tobacco product, I did program counselor them on benefits and resources of [...] file Gets together: Not on file Attends muslim service: Not on file Active member of [...] Procedures: Procedures Radha Li DO ED Physician [facility][1] Emergency Department Radha Li DO 06/05/20 1611 [...] vomiting Boone Resendiz MD ED Attending Physician [facility] Emergency Department documented in this encounter [...] team informatio n (unrecognized section and content) Players Assistant Relationship Specialty Start Date End Date Darnell Nowak DO [address] [place] [address] PCP - Medical [facility] 03/28/23 06/27/99 Darnell Nowak DO [address] [place] [address] PCP - General Family Medicine 03/02/24 Players Assistant Relationship Specialty Start Date End Date Darnell Nowak DO [address] [place] [address] PCP - Medical [facility] 03/28/23 06/27/99 Darnell Nowak DO [address] [place] [address] PCP - [facility] 03/02/24 Players Assistant Relationship Specialty Start Date End Date Darnell Nowak DO [address] [place] [address] PCP - [facility] 03/28/23 06/27/99 Darnell Nowak, DO [address] [place] [address] PCP - [facility] 03/02/24 Players Assistant Relationship Specialty Start Date End Date Darnell Nowak, DO [address] [place] [address] [facility] - [facility] 03/28/23 06/27/99 Darnell Nowak, DO [address] [place] [address] PCP - [facility] 03/02/24 FOR RECORDS PERTAINING TO PATIENTS WHO [...] BE BASED ON THE PRIMARY CLINICAL RECORDS. [facility]. provides no warranty or guarantee of the accuracy or completeness of information in this document.
[2024-04-30 14:43] LABS: Estimated Average Glucose 97 mg/dL
[2024-04-30] MEDS: LACTATED RINGER'S SOLUTION 1,000 ML 100 ML IV (14:47)
--- NOTE | 2024-04-30 15:26 | PM.HP ---
HPI H&P: HPI History of Present Illness Chief complaint: LUMP LEFT BREAST/LEFT BREAST ABSCESS/CELLULITIS Narrative: This is a delayed note for my encounter on 04/30/24 Patient with prior hx of recurrent breast abscess/cellulitis requiring I&D in the past, presented to ED after she noticed erythema/tenderness in her left breast. She also noticed that around her nipple area, there was painful swelling. She was prescribed Bactrim/Clindamycin for it by her PCP and she has been using abx as prescribed. However, erythema/tenderness progressively worsened over the past one week along with increasing pain/swelling that was fluctuant and felt like there was fluid in it around her nipple/alvoelar area. She was evaluated in ED and ED provider drained purulent fluid -about 10 cc from the alveolar/nipple region that was sent for culture. Patient was admitted for observation on IV abx - started on vancomycin/aztreonam. The area affected was marked and involved most of her left breast. US was ordered to assess anatomy which will be done on Wednesday. Patient denies fever but reports malaise/faitgue and overall feeling unwell. I informed the general surgeon conservator artifacts and will make patient NPO in case she needs I&D in OR. Opioid HPI Opioid Management Most Recent Pain and Opioid Data: Last Pain Scale 9 05/01/24 11:36 05/01/24 Last Pain Assessment 05/01/24 11:36 Last MAR Pain Assessment 05/01/24 11:29 Last ORT Total Score 4 04/30/24 14:46 04/30/24 Last ORT Risk Category Moderate Risk 04/30/24 14:46 04/30/24 Ur Phencyclidine Scrn Negative (NEGATIVE) 04/30/24 08:40 04/30/24 Review of Systems ROS Status of ROS 10 or more systems reviewed and unremarkable except as noted in history and below [facility] Medical History (Updated 04/30/24 @ 12:51 by Guera Arzate MD) Current smoker ?F17.200 - Nicotine dependence, unspecified, uncomplicated (ICD-10) Cellulitis of breast ?N61.0 - Mastitis without abscess (ICD-10) Abscess of breast ?N61.1 - Abscess of the breast and nipple (ICD-10) Tobacco dependence ?F17.200 - Nicotine dependence, unspecified, uncomplicated (ICD-10) Cellulitis of breast ?N61.0 - Mastitis without abscess (ICD-10) Breast abscess ?N61.1 - Abscess of the breast and nipple (ICD-10) Family History Father Family history of COPD (chronic obstructive pulmonary disease) Mother Family history of cancer Social History (Updated 04/30/24 @ 15:09 by Disha Sanchez) Within the past year, how often did you have a drink containing alcohol: never Score interpretation: A score less than 3 is consistent with normal alcohol consumption. 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 Known occupational exposures/hazards: No Highest level of school completed/degree received: high school graduate Do you want help with school or training: No Are you now , , , , never or living with a partner: In a typical week, how many times do you talk on the telephone with family, friends, or neighbors: 3 or more times per week How often do you get together with friends or relatives: 3 or more times per week How often do you attend sabianism or quaker services: 4 or more times per year Do you belong to any clubs or organizations such as sabianism groups unions, fraternal or athletic groups, or school groups: no Total score: 3 Score interpretation: A score of greater than or equal to 2 indicates the lowest level of social isolation. Little interest or pleasure in doing things: not at all Feeling down, depressed, or hopeless: not at all Feel stressed/tense/nervous/anxious/difficulty sleeping: not at all Due to disability, difficulty making decisions: No Do you think of yourself as: straight/heterosexual Gender Identity: female Meds Home Medications and Allergies Home Medications ?Medication ?Instructions ?Recorded ?Confirmed ?Type clindamycin HCl 300 mg capsule 300 mg PO Q8H 04/30/24 04/30/24 History hydrocodone 5 mg-acetaminophen 325 1 tab PO Q6H PRN pain 04/30/24 04/30/24 History mg tablet sulfamethoxazole 800 1 tab PO Q12H 04/30/24 04/30/24 History mg-trimethoprim 160 mg tablet Allergies Allergy/AdvReac Type Severity Reaction Status Date / Time adhesive tape Allergy Severe Blister Verified 05/01/24 06:39 Penicillins Allergy Intermediate Unknown Verified 05/01/24 06:39 Exam Narrative Exam Narrative: Exam performed when Disha CARDENAS was present in room as boilermaker apprentice Constitutional Vital Signs, click to edit/add: Last Vital Signs Temp 97.8 F 04/30/24 14:46 Pulse 50 L 04/30/24 14:46 Resp 20 04/30/24 14:46 BP 108/72 04/30/24 14:46 Pulse Ox 96 04/30/24 14:46 O2 Del Method Room Air 04/30/24 14:46 Documenting provider has reviewed patient's vital signs: yes Common normals: no apparent distress and oriented x3 General appearance: cooperative HENMT Common normals: normocephalic and head/scalp atraumatic Head and scalp: normocephalic and atraumatic Eye Common normals: conjunctivae normal and no scleral icterus Conjunctiva: conjunctiva(e) normal Chest Other: Left breast - erythematous/indurated skin involving all of her left breast. Area of localized swelling that is about 5 cm nipple/alveolar region. Respiratory Common normals: normal respiratory effort and clear to auscultation bilaterally Effort & inspection: able to speak in complete sentences Auscultation: clear to auscultation bilaterally Cardio Common normals: regular rate, S1 normal heart sound and S2 normal heart sound Rate: regular rate Heart sounds: S1 normal and S2 normal GI Common normals: Normal to inspection, nondistended, normoactive bowel sounds present, soft to palpation, non-tender and no hepatosplenomegaly Palpation: soft and no hepatosplenomegaly Extremity Common normals: no clubbing, cyanosis or edema Neuro Common normals: oriented x3, moves all extremities and no focal motor deficits Psych Common normals: mental status grossly normal, denies hallucinations, denies homicidal ideation and denies suicidal ideation Results Labs Labs: Short CBC 04/30/24 Range/Units 10:42 WBC 10.8 (4.0-11.0) 10^3/uL Hgb 14.8 (12.0-16.0) g/dL Hct 43.1 (36.0-48.0) % Plt Count 163 (150-450) 10^3/uL BMP 04/30/24 10:42 Sodium 136 Potassium 4.1 Chloride 98 Carbon Dioxide 23.5 BUN 9.0 Creatinine 0.93 Glucose 109 H Calcium 9.5 Liver Function 04/30/24 Range/Units 10:42 Total Bilirubin 0.5 (0.2-1.0) mg/dL AST 14 L (15-37) U/L ALT 20 (14-59) U/L Alkaline Phosphatase 78 (46-116) U/L Albumin 4.0 (3.4-5.0) g/dL Assessment and Plan Assessment and Plan (1) Cellulitis of breast: (2) Abscess of breast: (3) Current smoker: Plan Cellulitis with abscess of breast. Hx of recurrent cellulitis/abscess and have had I&D in the past. Check A1C to ensure she is not diabetic. On IV vancomycin/aztreonam. Patient is PCN allergic. US ordered to assess underlying abscess. Surgery consulted. F/u blood and aspirated fluid cx.
[2024-04-30] MEDS: ENOXAPARIN SODIUM 40 MG/0.4 ML SYRINGE SUBQ (15:39)
[2024-04-30] MEDS: NICOTINE 21 MG PATCH.TD24 TD (15:39)
[2024-04-30] MEDS: KETOROLAC TROMETHAMINE 30 MG/ML VIAL IVP ×2 (17:04→23:39)
[2024-04-30] MEDS: OXYCODONE HCL 5 MG TABLET PO (19:43)
[2024-04-30] MEDS: VANCOMYCIN HCL 1,250 MG in 0.9 % SODIUM CHLORIDE 250 ML 166.667 MG IV (23:37)
[2024-05-01] VITALS (18 sets, daily range): BP systolic 96–146; BP diastolic 55–96; PULSE 50–93; TEMP 36.3–36.9; O2SAT 94–99
[2024-05-01] MEDS: LACTATED RINGER'S SOLUTION 1,000 ML 100 ML IV ×2 (01:47→16:11)
[2024-05-01] MEDS: OXYCODONE HCL 5 MG TABLET PO ×4 (02:58→22:01)
[2024-05-01] MEDS: AZTREONAM 1,000 MG in 0.9 % SODIUM CHLORIDE 50 ML 100 MG IV ×3 (04:56→22:01)
[2024-05-01] MEDS: KETOROLAC TROMETHAMINE 30 MG/ML VIAL IVP ×4 (05:00→23:26)
[2024-05-01] MEDS: ONDANSETRON PF 4 MG/2 ML VIAL IV ×3 (05:21→18:22)
[2024-05-01 05:38] LABS: Basophils Percent Auto 0.4 % (0.2-2.0); Eosinophils Percent Auto 0.4 % (0.9-7.0); Hematocrit 37.3 % (36.0-48.0); Hemoglobin 12.6 g/dL (12.0-16.0); Immature Granulocytes Abs Auto 0.02 10^3/uL (0.00-0.03); Immature Granulocytes Pct Auto 0.3 % (0.0-0.5); Lymphocytes Absolute Auto 2.1 10^3/uL (1.2-3.8); Lymphocytes Percent Auto 27.8 % (20.5-60.0); Mean Corpuscular HGB Conc 33.8 g/dL (29.9-35.2); Mean Corpuscular Hemoglobin 30.4 pg (26.7-34.0); Mean Corpuscular Volume 90.1 fL (81.0-99.0); Mean Platelet Volume 10.3 fL (9.5-13.5); Monocytes Absolute Auto 0.4 10^3/uL (0.3-0.8); Monocytes Percent Auto 5.2 % (1.7-12.0); Neutrophils Absolute Auto 4.9 10^3/uL (1.4-6.5); Neutrophils Percent Auto 65.9 % (43.0-75.0); Platelet Count 145 10^3/uL (150-450); Red Blood Count 4.14 10^6/uL (4.20-5.40); Red Cell Distribution Width 13.6 % (11.0-15.0); White Blood Count 7.5 10^3/uL (4.0-11.0)
[2024-05-01 05:54] LABS: Alanine Aminotransferase 16 U/L (14-59); Albumin Globulin Ratio 0.9; Albumin Level 2.9 g/dL (3.4-5.0); Alkaline Phosphatase 58 U/L (46-116); Anion Gap 13.3; Aspartate Amino Transferase 12 U/L (15-37); BUN Creatinine Ratio 11.7; Bilirubin Total 0.5 mg/dL (0.2-1.0); Carbon Dioxide 23.9 mmol/L (21.0-32.0); Chloride 105 mmol/L (98-107); Estimated GFR (African America >60 (>=60 mL/min/1.73m^2); Estimated GFR (Non-African Ame >60 (>=60 mL/min/1.73m^2); Globulin 3.3 g/dL; Glucose 88 mg/dL (74-106); Potassium 4.2 mmol/L (3.5-5.1); Sodium 138 mmol/L (136-145); Total Protein 6.2 g/dL (6.4-8.2)
--- OUTSIDE RECORDS SUMMARY | 2024-05-01 06:05 | XMS_ITS | CCD ---
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 Name Role Phone Jericho Barreto Attending Unavailable [...] ABIGAIL, NONE LISTED Primary Care Unavailfredi SARMIENTO, SILAV Admitting Unavailable TORSTEN, SILVA Attending Unavailable TORSTEN, SILVA Consulting Unavailable BOONE LEA Consulting Unavailable Ashlyn Potter Primary Care Physician TAMMY, Neeraj Hendrix Attending Unavailable NILL, Neeraj Hendrix Attending Unavailable NILL, Neeraj Hendrix Attending Unavailable Unavailable Primary Care Provider UnavailANN Talley Attending Unavailable CUTLERDARNELL L Referring Unavailable Clinton DO, Darnell L Unavailable [phone] Clinton DO, Darnell L Primary Care Provider DARNELL [...] Penicillins; Translations: [PENICILLINS] Drug allergy (disorder) 8 [facility] Repository (5 sources) Penicillin; Translations: [penicillin] Drug Allergy [facility] Repository (3 sources) Tape 1 Propensity to adverse reactions to substance Redness, Itching [facility] Comment on above: plastic tape (1 source) Adhesive Tape; Translations: [Tape] Propensity to adverse reactions (disorder) [facility] Repository (6 sources) Penicillins Drug Intolerance [...] Range Facility [facility] Report[facility] 06-07-2023 Lab Reports [id number]#1 .00TIFF Normal [facility] Report[facility] 06-05-2023 Lab Reports [id number]#1 .00TIFF Normal [facility] 06-04-2023 Lab Reports [id number]#1 .00TIFF [facility] Lab Reports [id number]#1 .00TIFF [facility] Ambulatory Visit Summaryon 1 07-18-2022 Ambulatory [...] for choosing us for your care. Normal [facility] General Surgery Office/Clini c Noteon 05-18-2023 General Surgery Office/Clinic Note Chief Complaint post operative follow up HPI Staff 18 day post operative follow up post I/D left breast abscess. Completing daily dressing changes at [facility]. Reports moderate intermittent discomfort, taking Ibuprofen [...] Patient Refuses Normal [facility] Comment on above: Result Comment: Elec [...] dressing changes daily at infusion center at [facility]; completed course of antibiotics; taking ibuprofen [...] revision if areolar skin remains retracted. [facility] Pres[facility], daily dressing change, Complete daily damp [...] inactivated - Not Given Patient Refuses Normal [facility] Comment on above: Result Comment: Elec [...] for choosing us for your care. Normal [facility] Report[facility] 05-11-2023 Lab Reports [id number]. 00TIFF Normal [facility] Pathology Noteon 05-10-2023 Pathology Note [id number]#1 .00TIFF Normal [facility] Consultation Noteon 05-05-20 Consultation Note [id number]#1 .00TIFF Normal [facility] Consultation Note [id number]#1 .00TIFF Normal [facility] Operative Reporton Operative Report [id number]#1 .00TIFF Normal [facility] Consultation Noteon 05-04-20 Consultation Note [id number]#1 .00TIFF Normal [facility] ED Note-Physicianon 05-04-20 ED Note-Physician [id number]#1 .00TIFF Normal [facility] ED Note-Physician [id number]#1 .00TIFF Normal [facility] AMMONIAon 10-12-2021 Ammonia (P) [Moles/Vol] 21 umol/L Normal 11-32 [facility] Comment on above: Performed By: #### P TT, PT #### [facility] [address] [place] [address] Dr. Celi Guerin AMYLASEon 10-12-2021 Amylase [Catalytic activity/Vol] 535 U/L Critically high 25-115 [facility] Comment on above: Result Comment: repe ated Performed By: #### C MP, LIPA, ASHLYN #### [facility] [address] [place] [address] Dr. Celi Guerin CBC AUTO DIFFon 10-12-2021 BASO # 0.0 103/ul Normal 0.0-0.1 [facility] Comment on above: Performed By: #### P TT, PT #### [facility] [address] [place] [address] Dr. Celi Guerin Basophils/100 WBC (Bld) 0.1 % Critically low 0.2-2.0 [facility] Comment on above: Performed By: #### P TT, PT #### [facility] [address] [place] [address] Dr. Celi Guerin EO # 0.0 103/ul Normal 0.0-0.7 [facility] Comment on above: Performed By: #### P TT, PT #### [facility] [address] [place] [address] Dr. Celi Guerin Eosinophils/100 WBC (Bld) 0.4 % Critically low 0.9-7.0 [facility] Comment on above: Performed By: #### P TT, PT #### [facility] [address] [place] [address] Dr. Celi Guerin Erythrocyte distribution width (RBC) [Ratio] 18.6 % Critically high 11.0-15.0 [facility] Comment on above: Performed By: #### P TT, PT #### [facility] [address] [place] [address] Dr. Celi Guerin Hematocrit (Bld) [Volume fraction] 29.3 % Critically low 36.0-48.0 [facility] Comment on above: Performed By: #### P TT, PT #### [facility] [address] [address] [address] Celi Guerin Hemoglobin (Bld) [Mass/Vol] 9.4 g/dL Critically low 12.0-16.0 [facility] Comment on above: Performed By: #### P TT, PT #### [facility] [address] [place] [address] Dr. Celi Guerin IG # 0.04 10e3/ul Critically high 0.00-0.03 [facility] Comment on above: Performed By: #### P TT, PT #### [facility] [address] [place] [address] Dr. Celi Guerin IG % 0.5 % Normal 0.0-0.5 [facility] Comment on above: Performed By: #### P TT, PT #### [facility] [address] [place] [address] Dr. Celi Guerin LYMPH # 1.1 103/ul Critically low 1.2-3.8 [facility] Comment on above: Performed By: #### P TT, PT #### [facility] [address] [place] [address] Dr. Celi Guerin Lymphocytes/100 WBC (Bld) 14.2 % Critically low 20.5-60.0 [facility] Comment on above: Performed By: #### P TT, PT #### [facility] [address] [place] [address] Dr. Celi Guerin MANUAL DIFF REQ NO Normal [facility] Comment on above: Performed By: #### P TT, PT #### [facility] [address] [place] [address] Dr. Celi Guerin MCH (RBC) [Entitic mass] 25.8 pg Critically low 26.7-34.0 [facility] Comment on above: Performed By: #### P TT, PT #### [facility] [address] [place] [address] Dr. Celi Guerin MCHC (RBC) [Mass/Vol] 32.1 g/dL Normal 29.9-35.2 [facility] Comment on above: Performed By: #### P TT, PT #### [facility] [address] [place] [address] Dr. Celi Guerin MCV (RBC) [Entitic vol] 80.5 fL Critically low 81.0-99.0 [facility] Comment on above: Performed By: #### P TT, PT #### [facility] [address] [place] [address] Dr. Celi Guerin MONO # 0.7 103/ul Normal 0.3-0.8 [facility] Comment on above: Performed By: #### P TT, PT #### [facility] [address] [place] [address] Dr. Celi Guerin Monocytes/100 WBC (Bld) 8.4 % Normal 1.7-12.0 [facility] Comment on above: Performed By: #### P TT, PT #### [facility] [address] [place] [address] Dr. Celi Guerin NEUT # 5.9 103/ul Normal 1.4-6.5 [facility] Comment on above: Performed By: #### P TT, PT #### [facility] [address] [place] [address] Dr. Celi Guerin Neutrophils/100 WBC (Bld) 76.4 % Critically high 43.0-75.0 [facility] Comment on above: Performed By: #### P TT, PT #### [facility] [address] [place] [address] Dr. Celi Guerin PLT 63 103/ul Critically low 150-450 [facility] Comment on above: Performed By: #### P TT, PT #### [facility] [address] [place] [address] Dr. Celi Guerin RBC 3.64 106/ul Critically low 4.20-5.40 [facility] Comment on above: Performed By: #### P TT, PT #### [facility] [address] [place] [address] Dr. Celi Guerin WBC 7.8 103/ul Normal 4.0-11.0 [facility] Comment on above: Performed By: #### P TT, PT #### [facility] [address] [place] [address] Dr. Celi Guerin LIPASEon 10-12-2021 Lipase [Catalytic activity/Vol] U/L Critically high 23.0-300.0 [facility] Comment on above: Result Comment: repe ated Performed By: #### E SAMEERFLORMEMO #### [facility] [address] [place] [address] Dr. Celi Guerin PROF 14(COMP METB)on 022 Albumin [Mass/Vol] 2.9 g/dL Critically low 3.4-5.0 Th [facility] Comment on above: Performed By: #### C ANTWAN LIPA, ASHLYN #### [facility] [address] [place] [address] Dr. Celi Guerin Albumin/Globulin [Mass ratio] 1.0 {ratio} Normal [facility] Comment on above: Performed By: #### C MP LIPA, ASHLYN #### [facility] [address] [place] [address] Dr. Celi Guerin ALP [Catalytic activity/Vol] 88 U/L Normal 46-116 [facility] Comment on above: Performed By: #### C MP LIPA, ASHLYN #### [facility] [address] [place] [address] Dr. Celi Guerin ALT [Catalytic activity/Vol] 34 U/L Normal 14-59 [facility] Comment on above: Performed By: #### C MP LIPA, ASHLYN #### [facility] [address] [place] [address] Dr. Celi Guerin Anion gap [Moles/Vol] 12.9 mmol/L Normal [facility] Comment on above: Performed By: #### C MP LIPA, ASHLYN #### [facility] [address] [place] [address] Dr. Celi Guerin AST [Catalytic activity/Vol] 70 U/L Critically high 15-37 [facility] Comment on above: Performed By: #### C MP, LIPA, ASHLYN #### [facility] [address] [place] [address] Dr. Celi Guerin Bilirubin [Mass/Vol] 1.2 mg/dL Normal 0.2-1.3 [facility] Comment on above: Performed By: #### C PRIYANKA MONCADAA, ASHLYN #### [facility] [address] [address] [address] Celi Guerin Calcium [Mass/Vol] 7.4 mg/dL Critically low 8.5-10.1 Th [facility] Comment on above: Performed By: #### C ANTWAN LIPA, ASHLYN #### [facility] [address] [address] [address] Celi Guerin Chloride [Moles/Vol] 98 mmol/L Normal 98-107 [facility] Comment on above: Performed By: #### C ANTWAN LIPA, ASHLYN #### [facility] [address] [place] [address] Dr. Celi Guerin CO2 [Moles/Vol] 23.9 mmol/L Normal 22.0-30.0 [facility] Comment on above: Performed By: #### C ANTWAN LIPA, ASHLYN #### [facility] [address] [place] [address] Dr. Celi Guerin Creatinine [Mass/Vol] 0.41 mg/dL Critically low 0.52-1.04 [facility] Comment on above: Performed By: #### C PRIYANKA MONCADAA, ASHLYN #### [facility] [address] [place] [address] Dr. Celi Guerin EGFR-AF BURKINAN >60 Normal >=60 [facility] Comment on above: Performed By: #### C MP LIPA, ASHLYN #### [facility] [address] [place] [address] Dr. Celi Guerin EGFR-NON AF BURKINAN >60 Normal >=60 [facility] Comment on above: Performed By: #### C MP LIPA, ASHLYN #### [facility] [address] [place] [address] Dr. Celi Guerin Globulin (S) [Mass/Vol] 2.9 g/dL Normal [facility] Comment on above: Performed By: #### C MP, LIPA, ASHLYN #### [facility] [address] [place] [address] Dr. Celi Guerin Glucose [Mass/Vol] 82 mg/dL Normal 74-106 [facility] Comment on above: Performed By: #### C ANTWAN LIPA, ASHLYN #### [facility] [address] [address] [address] Celi Guerin Potassium [Moles/Vol] 2.8 mmol/L Critically low 3.4-5.0 [facility] Comment on above: Result Comment: repe ated Performed By: #### C MP LIPA, ASHLYN #### [facility] [address] [place] [address] Dr. Celi Guerin Protein [Mass/Vol] 5.8 g/dL Critically low 6.1-8.[address] [facility] Comment on above: Performed By: #### C ANTWAN LIPA, ASHLYN #### [facility] [address] [place] [address] Dr. Celi Guerin Sodium [Moles/Vol] 131 mmol/L Critically low 137-[address] [facility] Comment on above: Performed By: #### C ANTWAN LIPA, ASHLYN #### [facility] [address] [place] [address] Dr. Celi Guerin Urea nitrogen [Mass/Vol] 2.0 mg/dL Critically low 7.0-18.0 [facility] Comment on above: Performed By: #### C ANTWAN LIPA, ASHLYN #### [facility] [address] [place] [address] Dr. Celi Guerin Urea nitrogen/Creatinine [Mass ratio] 4.9 mg/mg Normal [facility] Comment on above: Performed By: #### C ANTWAN LIPA, ASHLYN #### [facility] [address] [place] [address] Dr. Celi Guerin AMMONIAon 10-11-2021 Ammonia (P) [Moles/Vol] 23 umol/L Normal 11-32 [facility] Comment on above: Performed By: #### D RUGRPD #### [facility] [address] [place] [address] Dr. Celi Guerin AMYLASEon 10-11-2021 Amylase [Catalytic activity/Vol] 1078 U/L Critically high 25-115 [facility] Comment on above: Result Comment: repe ated Performed By: #### D RUGRPD #### [facility] [address] [place] [address] Dr. Celi Guerin CBC AUTO DIFFon 10-11-2021 BASO # 0.0 103/ul Normal 0.0-0.1 [facility] Comment on above: Performed By: #### P TT, PT #### [facility] [address] [place] [address] Dr. Celi Guerin Basophils/100 WBC (Bld) 0.1 % Critically low 0.2-2.0 [facility] Comment on above: Performed By: #### P TT, PT #### [facility] [address] [place] [address] Dr. Celi Guerin EO # 0.0 103/ul Normal 0.0-0.7 [facility] Comment on above: Performed By: #### P TT, PT #### [facility] [address] [place] [address] Dr. Celi Guerin Eosinophils/100 WBC (Bld) 0.1 % Critically low 0.9-7.0 [facility] Comment on above: Performed By: #### P TT, PT #### [facility] [address] [place] [address] Dr. Celi Guerin Erythrocyte distribution width (RBC) [Ratio] 18.5 % Critically high 11.0-15.0 [facility] Comment on above: Performed By: #### P TT, PT #### [facility] [address] [place] [address] Dr. Celi Guerin Hematocrit (Bld) [Volume fraction] 33.2 % Critically low 36.0-48.0 [facility] Comment on above: Performed By: #### P TT, PT #### [facility] [address] [place] [address] Dr. Celi Guerin Hemoglobin (Bld) [Mass/Vol] 10.5 g/dL Critically low 12.0-16.0 [facility] Comment on above: Performed By: #### P TT, PT #### [facility] [address] [place] [address] Dr. Celi Guerin IG # 0.03 10e3/ul Normal 0.00-0.03 [facility] Comment on above: Performed By: #### P TT, PT #### [facility] [address] [address] [address] Celi Guerin IG % 0.4 % Normal 0.0-0.5 [facility] Comment on above: Performed By: #### P TT, PT #### [facility] [address] [address] [address] Celi Guerin LYMPH # 0.8 103/ul Critically low 1.2-3.8 [facility] Comment on above: Performed By: #### P TT, PT #### [facility] [address] [place] [address] Dr. Celi Guerin Lymphocytes/100 WBC (Bld) 10.6 % Critically low 20.5-60.0 [facility] Comment on above: Performed By: #### P TT, PT #### [facility] [address] [place] [address] Dr. Celi Guerin MANUAL DIFF REQ NO Normal [facility] Comment on above: Performed By: #### P TT, PT #### [facility] [address] [place] [address] Dr. Celi Guerin MCH (RBC) [Entitic mass] 25.9 pg Critically low 26.7-34.0 [facility] Comment on above: Performed By: #### P TT, PT #### [facility] [address] [place] [address] Dr. Celi Guerin MCHC (RBC) [Mass/Vol] 31.6 g/dL Normal 29.9-35.2 [facility] Comment on above: Performed By: #### P TT, PT #### [facility] [address] [place] [address] Dr. Celi Guerin MCV (RBC) [Entitic vol] 82.0 fL Normal 81.0-99.0 [facility] Comment on above: Performed By: #### P TT, PT #### [facility] [address] [place] [address] Dr. Celi Guerin MONO # 0.4 103/ul Normal 0.3-0.8 [facility] Comment on above: Performed By: #### P TT, PT #### [facility] [address] [place] [address] Dr. Celi Guerin Monocytes/100 WBC (Bld) 5.6 % Normal 1.7-12.0 [facility] Comment on above: Performed By: #### P TT, PT #### [facility] [address] [place] [address] Dr. Celi Guerin NEUT # 6.4 103/ul Normal 1.4-6.5 [facility] Comment on above: Performed By: #### P TT, PT #### [facility] [address] [place] [address] Dr. Celi Guerin Neutrophils/100 WBC (Bld) 83.2 % Critically high 43.0-75.0 [facility] Comment on above: Performed By: #### P TT, PT #### [facility] [address] [place] [address] Dr. Celi Guerin Platelet mean volume (Bld) [Entitic vol] 11.9 fL Normal 9.5-13.5 [facility] Comment on above: Performed By: #### P TT, PT #### [facility] [address] [place] [address] Dr. Celi Guerin PLT 59 103/ul Critically low 150-450 [facility] Comment on above: Performed By: #### P TT, PT #### [facility] [address] [place] [address] Dr. Celi Guerin RBC 4.05 106/ul Critically low 4.20-5.40 [facility] Comment on above: Performed By: #### P TT, PT #### [facility] [address] [place] [address] Dr. Celi Guerin WBC 7.7 103/ul Normal 4.0-11.0 [facility] Comment on above: Performed By: #### P TT, PT #### [facility] [address] ABD/PELVIS WO CONon [...] RADHA RINALDI Date: 2021-10-11 09:36 Normal [facility] CT HEAD WO CONon 10-11-2021 CT [...] OSMIN MICHAEL Date: 2021-10-11 09:38 Normal [facility] LIPASEon 10-11-2021 Lipase [Catalytic activity/Vol] U/L Critically high 23.0-300.0 [facility] Comment on above: Result Comment: repe ated Performed By: #### D RUGRPD #### [facility] [address] [place] [address] Dr. Celi Guerin MAGNESIUMon 10-11-2021 Magnesium [Mass/Vol] 1.7 mg/dL Normal 1.6-2.3 [facility] Comment on above: Performed By: #### P TT, PT #### [facility] [address] [place] [address] Dr. Celi Guerin PHOSPHORUSon 10-11-2021 Phosphate [Mass/Vol] 1.5 mg/dL Critically low 2.5-4.5 [facility] Comment on above: Performed By: #### P TT, PT #### [facility] [address] [place] [address] Dr. Celi Guerin PROF 14(COMP METB)on 022 Albumin [Mass/Vol] 3.0 g/dL Critically low 3.4-5.0 Th [facility] Comment on above: Performed By: #### P TT, PT #### [facility] [address] [place] [address] Dr. Celi Guerin Albumin/Globulin [Mass ratio] 1.0 {ratio} Normal [facility] Comment on above: Performed By: #### P TT, PT #### [facility] [address] [place] [address] Dr. Celi Guerin ALP [Catalytic activity/Vol] 78 U/L Normal 46-116 [facility] Comment on above: Performed By: #### P TT, PT #### [facility] [address] [place] [address] Dr. Celi Guerin ALT [Catalytic activity/Vol] 31 U/L Normal 14-59 [facility] Comment on above: Performed By: #### P TT, PT #### [facility] [address] [place] [address] Dr. Celi Guerin Anion gap [Moles/Vol] 16.8 mmol/L Normal [facility] Comment on above: Performed By: #### P TT, PT #### [facility] [address] [place] [address] Dr. Celi Guerin AST [Catalytic activity/Vol] 48 U/L Critically high 15-37 [facility] Comment on above: Performed By: #### P TT, PT #### [facility] [address] [place] [address] Dr. Celi Guerin Bilirubin [Mass/Vol] 1.1 mg/dL Normal 0.2-1.3 [facility] Comment on above: Performed By: #### P TT, PT #### [facility] [address] [place] [address] Dr. Celi Guerin Calcium [Mass/Vol] 7.6 mg/dL Critically low 8.5-10.1 Th [facility] Comment on above: Performed By: #### P TT, PT #### [facility] [address] [place] [address] Dr. Celi Guerin Chloride [Moles/Vol] 97 mmol/L Critically low 98-107 [facility] Comment on above: Performed By: #### P TT, PT #### [facility] [address] [place] [address] Dr. Celi Guerin CO2 [Moles/Vol] 22.3 mmol/L Normal 22.0-30.0 [facility] Comment on above: Performed By: #### P TT, PT #### [facility] [address] [place] [address] Dr. Celi Guerin Creatinine [Mass/Vol] 0.39 mg/dL Critically low 0.52-1.04 [facility] Comment on above: Performed By: #### P TT, PT #### [facility] [address] [place] [address] Dr. Celi Guerin EGFR-AF BURKINAN >60 Normal >=60 [facility] Comment on above: Performed By: #### P TT, PT #### [facility] [address] [address] [address] Celi Guerin EGFR-NON AF BURKINAN >60 Normal >=60 [facility] Comment on above: Performed By: #### P TT, PT #### [facility] [address] [address] [address] Celi Guerin Globulin (S) [Mass/Vol] 3.1 g/dL Normal [facility] Comment on above: Performed By: #### P TT, PT #### [facility] [address] [address] [address] Celi Guerin Glucose [Mass/Vol] 63 mg/dL Critically low 74-106 Th [facility] Comment on above: Performed By: #### P TT, PT #### [facility] [address] [address] [address] Celi Guerin Potassium [Moles/Vol] 3.1 mmol/L Critically low 3.4-5.0 [facility] Comment on above: Performed By: #### P TT, PT #### [facility] [address] [place] [address] Dr. Celi Guerin Protein [Mass/Vol] 6.1 g/dL Normal 6.1-8.2 [facility] Comment on above: Performed By: #### P TT, PT #### [facility] [address] [place] [address] Dr. Celi Guerin Sodium [Moles/Vol] 133 mmol/L Critically low 137-145 [facility] Comment on above: Performed By: #### P TT, PT #### [facility] [address] [address] [address] Celi Guerin Urea nitrogen [Mass/Vol] 3.0 mg/dL Critically low 7.0-18.0 [facility] Comment on above: Performed By: #### P TT, PT #### [facility] [address] [address] [address] Celi Guerin Urea nitrogen/Creatinine [Mass ratio] 7.7 mg/mg Normal [facility] Comment on above: Performed By: #### P TT, PT #### [facility] [address] [place] [address] Dr. Celi Guerin AMMONIAon 10-10-2021 Ammonia (P) [Moles/Vol] 39 umol/L Critically high 11-32 [facility] Comment on above: Performed By: #### E YURI ESTRELLARO #### [facility] [address] [place] [address] Dr. Celi Guerin AMYLASEon 10-10-2021 Amylase [Catalytic activity/Vol] 892 U/L Critically high 25-115 [facility] Comment on above: Result Comment: Test Repeated. Critical ValueVerified Performed By: #### D RUGRPD #### [facility] [address] [place] [address] Dr. Celi Guerin CBC AUTO DIFFon 10-10-2021 BASO # 0.0 103/ul Normal 0.0-0.1 [facility] Comment on above: Performed By: #### P TT, PT #### [facility] [address] [place] [address] Dr. Celi Guerin Basophils/100 WBC (Bld) 0.2 % Normal 0.2-2.0 [facility] Comment on above: Performed By: #### P TT, PT #### [facility] [address] [place] [address] Dr. Celi Guerin EO # 0.0 103/ul Normal 0.0-0.7 [facility] Comment on above: Performed By: #### P TT, PT #### [facility] [address] [place] [address] Dr. Celi Guerin Eosinophils/100 WBC (Bld) 0.0 % Critically low 0.9-7.0 [facility] Comment on above: Performed By: #### P TT, PT #### [facility] [address] [place] [address] Dr. Celi Guerin Erythrocyte distribution width (RBC) [Ratio] 18.2 % Critically high 11.0-15.0 [facility] Comment on above: Performed By: #### P TT, PT #### [facility] [address] [place] [address] Dr. Celi Guerin Hematocrit (Bld) [Volume fraction] 32.8 % Critically low 36.0-48.0 [facility] Comment on above: Performed By: #### P TT, PT #### [facility] [address] [place] [address] Dr. Celi Guerin Hemoglobin (Bld) [Mass/Vol] 10.2 g/dL Critically low 12.0-16.0 [facility] Comment on above: Performed By: #### P TT, PT #### [facility] [address] [place] [address] Dr. Celi Guerin IG # 0.04 10e3/ul Critically high 0.00-0.03 [facility] Comment on above: Performed By: #### P TT, PT #### [facility] [address] [place] [address] Dr. Celi Guerin IG % 0.7 % Critically high 0.0-0.5 [facility] Comment on above: Performed By: #### P TT, PT #### [facility] [address] [place] [address] Dr. Celi Guerin LYMPH # 0.9 103/ul Critically low 1.2-3.8 [facility] Comment on above: Performed By: #### P TT, PT #### [facility] [address] [place] [address] Dr. Celi Guerin Lymphocytes/100 WBC (Bld) 15.4 % Critically low 20.5-60.0 [facility] Comment on above: Performed By: #### P TT, PT #### [facility] [address] [place] [address] Dr. Celi Guerin MANUAL DIFF REQ NO Normal [facility] Comment on above: Performed By: #### P TT, PT #### [facility] [address] [place] [address] Dr. Celi Guerin MCH (RBC) [Entitic mass] 26.0 pg Critically low 26.7-34.0 [facility] Comment on above: Performed By: #### P TT, PT #### [facility] [address] [place] [address] Dr. Celi Guerin MCHC (RBC) [Mass/Vol] 31.1 g/dL Normal 29.9-35.2 [facility] Comment on above: Performed By: #### P TT, PT #### [facility] [address] [place] [address] Dr. Celi Guerin MCV (RBC) [Entitic vol] 83.5 fL Normal 81.0-99.0 [facility] Comment on above: Performed By: #### P TT, PT #### [facility] [address] [place] [address] Dr. Celi Guerin MONO # 0.4 103/ul Normal 0.3-0.8 [facility] Comment on above: Performed By: #### P TT, PT #### [facility] [address] [place] [address] Dr. Celi Guerin Monocytes/100 WBC (Bld) 7.5 % Normal 1.7-12.0 [facility] Comment on above: Performed By: #### P TT, PT #### [facility] [address] [place] [address] Dr. Celi Guerin NEUT # 4.5 103/ul Normal 1.4-6.5 [facility] Comment on above: Performed By: #### P TT, PT #### [facility] [address] [place] [address] Dr. Celi Guerin Neutrophils/100 WBC (Bld) 76.2 % Critically high 43.0-75.0 [facility] Comment on above: Performed By: #### P TT, PT #### [facility] [address] [place] [address] Dr. Celi Guerin Platelet mean volume (Bld) [Entitic vol] 10.6 fL Normal 9.5-13.5 [facility] Comment on above: Performed By: #### P TT, PT #### [facility] [address] [place] [address] Dr. Celi Guerin PLT 53 103/ul Critically low 150-450 [facility] Comment on above: Performed By: #### P TT, PT #### [facility] [address] [address] [address] Celi Guerin RBC 3.93 106/ul Critically low 4.20-5.40 [facility] Comment on above: Performed By: #### P TT, PT #### [facility] [address] [address] [address] Celi Guerin WBC 5.9 103/ul Normal 4.0-11.0 [facility] Comment on above: Performed By: #### P TT, PT #### [facility] [address] [place] [address] Dr. Celi Guerin DRUG SCREEN RAPID (URINE)on 10-10-2021 AMP Negative Normal NEGATIVE [facility] Comment on above: Performed By: #### D RUGRPD #### [facility] [address] [place] [address] Dr. Celi Guerin BAR Positive Abnormal NEGATIVE [facility] Comment on above: Performed By: #### D RUGRPD #### [facility] [address] [place] [address] Dr. Celi Guerin BUP Negative Normal NEGATIVE [facility] Comment on above: Performed By: #### D RUGRPD #### [facility] [address] [place] [address] Dr. Celi Guerin BZO Positive Abnormal NEGATIVE [facility] Comment on above: Performed By: #### D RUGRPD #### [facility] [address] [place] [address] Dr. Celi Guerin REED Negative Normal NEGATIVE [facility] Comment on above: Performed By: #### D RUGRPD #### [facility] [address] [place] [address] Dr. Celi Guerin CUT-OFFS SEE BELOW Normal [facility] Comment on above: Result Comment: AMP [...] ng/mL Performed By: #### D RUGRPD #### [facility] [address] [place] [address] Dr. Celi Guerin DRUG CUT HEADER DRUG CLASS TEST SYSTEM CUT-OFF CONCENTRATIONS ARE FOLLOWS: Normal [facility] Comment on above: Performed By: #### D RUGRPD #### [facility] [address] [place] [address] Dr. Celi Guerin mAMP Negative Normal NEGATIVE [facility] Comment on above: Performed By: #### D RUGRPD #### [facility] [address] [place] [address] Dr. Celi Guerin MTD Negative Normal NEGATIVE [facility] Comment on above: Performed By: #### D RUGRPD #### [facility] [address] [place] [address] Dr. Celi Guerin OPI Positive Abnormal NEGATIVE [facility] Comment on above: Performed By: #### D RUGRPD #### [facility] [address] [place] [address] Dr. Celi Guerin OXY Negative Normal NEGATIVE [facility] Comment on above: Performed By: #### D RUGRPD #### [facility] [address] [place] [address] Dr. Celi Guerin PCP Negative Normal NEGATIVE [facility] Comment on above: Performed By: #### D RUGRPD #### [facility] [address] [place] [address] Dr. Celi Guerin PPX Negative Normal NEGATIVE [facility] Comment on above: Performed By: #### D RUGRPD #### [facility] [address] [place] [address] Dr. Celi Guerin TCA Negative Normal NEGATIVE [facility] Comment on above: Performed By: #### D RUGRPD #### [facility] [address] [place] [address] Dr. Celi Guerin THC Positive Abnormal NEGATIVE [facility] Comment on above: Performed By: #### D RUGRPD #### [facility] [address] [place] [address] Dr. Celi Guerin ER URINE PROFILEon 2 Bilirubin Ql (U) Negative Normal NEGATIVE [facility] Comment on above: Performed By: #### P TT, PT #### [facility] [address] [place] [address] Dr. Celi Guerin Clarity (U) CLEAR Normal CLEAR [facility] Comment on above: Performed By: #### P TT, PT #### [facility] [address] [place] [address] Dr. Celi Guerin Color (U) YELLOW Normal YELLOW [facility] Comment on above: Performed By: #### P TT, PT #### [facility] [address] [place] [address] Dr. Celi LUCAS A micrscopic examination will be performed if indicated. Normal [facility] Comment on above: Performed By: #### P TT, PT #### [facility] [address] [place] [address] Dr. Celi Gueirn Glucose Ql (U) Negative Normal NEGATIVE [facility] Comment on above: Performed By: #### P TT, PT #### [facility] [address] [place] [address] Dr. Celi Guerin Hemoglobin Ql (U) MODERATE Abnormal NEGATIVE [facility] Comment on above: Performed By: #### P TT, PT #### [facility] [address] [place] [address] Dr. Celi Guerin Ketones Ql (U) 15 mg/dl Abnormal NEGATIVE [facility] Comment on above: Performed By: #### P TT, PT #### [facility] [address] [place] [address] Dr. Celi Guerin LEUKOCYTES Negative Normal NEGATIVE [facility] Comment on above: Performed By: #### P TT, PT #### [facility] [address] [place] [address] Dr. Celi Guerin Nitrite Ql (U) Negative Normal NEGATIVE [facility] Comment on above: Performed By: #### P TT, PT #### [facility] [address] [place] [address] Dr. Celi Guerin pH (U) 6.0 [pH] Normal 5-9 [facility] Comment on above: Performed By: #### P TT, PT #### [facility] [address] [place] [address] Dr. Celi Guerin Protein (U) [Mass/Vol] 30 mg/dL Abnormal NEGATIVE/ TRACE [facility] Comment on above: Performed By: #### P TT, PT #### [facility] [address] [place] [address] Dr. Celi Guerin SPEC GRAVITY 1.025 Normal 1.005-<=1.025 [facility] Comment on above: Performed By: #### P TT, PT #### [facility] [address] [place] [address] Dr. Celi Guerin UR MICRO IND INDICATED Normal [facility] Comment on above: Performed By: #### P TT, PT #### [facility] [address] [place] [address] Dr. Celi Guerin Urobilinogen Qn (U) 0.2 {Irland[place]'U}/dL Normal 0.2 - 1. 0 [facility] Comment on above: Performed By: #### P TT, PT #### [facility] [address] [place] [address] Dr. Celi Guerin LIPASEon 10-10-2021 Lipase [Catalytic activity/Vol] U/L Critically high 23.0-300.0 [facility] Comment on above: Performed By: #### D RUGRPD #### [facility] [address] [place] [address] Dr. Celi Guerin PROF 14(COMP METB)on 022 Albumin [Mass/Vol] 3.4 g/dL Normal 3.4-5.0 [facility] Comment on above: Performed By: #### D RUGRPD #### [facility] [address] [address] [address] Celi Guerin Albumin/Globulin [Mass ratio] 1.1 {ratio} Normal [facility] Comment on above: Performed By: #### D RUGRPD #### [facility] [address] [address] [address] Celi Guerin ALP [Catalytic activity/Vol] 81 U/L Normal 46-116 [facility] Comment on above: Performed By: #### D RUGRPD #### [facility] [address] [address] [address] Celi Guerin ALT [Catalytic activity/Vol] 36 U/L Normal 14-59 [facility] Comment on above: Performed By: #### D RUGRPD #### [facility] [address] [address] [address] Celi Guerin Anion gap [Moles/Vol] 13.4 mmol/L Normal [facility] Comment on above: Performed By: #### D RUGRPD #### [facility] [address] [address] [address] Celi Guerin AST [Catalytic activity/Vol] 53 U/L Critically high 15-37 [facility] Comment on above: Performed By: #### D RUGRPD #### [facility] [address] [address] [address] Celi Guerin Bilirubin [Mass/Vol] 1.1 mg/dL Normal 0.2-1.3 [facility] Comment on above: Performed By: #### D RUGRPD #### [facility] [address] [address] [address] Celi Guerin Calcium [Mass/Vol] 7.7 mg/dL Critically low 8.5-10.1 [facility] Comment on above: Performed By: #### D RUGRPD #### [facility] [address] [address] [address] Celi Guerin Chloride [Moles/Vol] 98 mmol/L Normal 98-107 [facility] Comment on above: Performed By: #### D RUGRPD #### [facility] [address] [address] [address] Celi Guerin CO2 [Moles/Vol] 27.3 mmol/L Normal 22.0-30.0 [facility] Comment on above: Performed By: #### D RUGRPD #### [facility] [address] [address] [address] Celi Guerin Creatinine [Mass/Vol] 0.38 mg/dL Critically low 0.52-1.04 [facility] Comment on above: Performed By: #### D RUGRPD #### [facility] [address] [address] [address] Celi Guerin EGFR-AF BURKINAN >60 Normal >=60 [facility] Comment on above: Performed By: #### D RUGRPD #### [facility] [address] [address] [address] Celi Guerin EGFR-NON AF BURKINAN >60 Normal >=60 [facility] Comment on above: Performed By: #### D RUGRPD #### [facility] [address] [address] [address] Celi Guerin Globulin (S) [Mass/Vol] 3.1 g/dL Normal [facility] Comment on above: Performed By: #### D RUGRPD #### [facility] [address] [address] [address] Celi Guerin Glucose [Mass/Vol] 94 mg/dL Normal 74-106 [facility] Comment on above: Performed By: #### D RUGRPD #### [facility] [address] [address] [address] Celi Guerin Potassium [Moles/Vol] 3.7 mmol/L Normal 3.4-5.0 [facility] Comment on above: Performed By: #### D RUGRPD #### [facility] [address] [address] [address] Celi Guerin Protein [Mass/Vol] 6.5 g/dL Normal 6.1-8.2 [facility] Comment on above: Performed By: #### D RUGRPD #### [facility] [address] [address] [address] Celi Guerin Sodium [Moles/Vol] 135 mmol/L Critically low 137-145 Th [facility] Comment on above: Performed By: #### D RUGRPD #### [facility] [address] [address] [address] Celi Guerin Urea nitrogen [Mass/Vol] 6.0 mg/dL Critically low 7.0-18.0 [facility] Comment on above: Performed By: #### D RUGRPD #### [facility] [address] [place] [address] Dr. Celi Guerin Urea nitrogen/Creatinine [Mass ratio] 15.8 mg/mg Normal [facility] Comment on above: Performed By: #### D RUGRPD #### [facility] [address] [place] [address] Dr. Celi Guerin URINE MICROSCOPIC ONLYon BACTERIA TRACE Abnormal NONE SEEN [facility] Comment on above: Performed By: #### P TT, PT #### [facility] [address] [place] [address] Dr. Celi Guerin Bacteria identified Cx Nom (U) NOT INDICATED Normal [facility] Comment on above: Performed By: #### P TT, PT #### [facility] [address] [place] [address] Dr. Celi Guerin CAST NONE SEEN Normal NONE SEEN [facility] Comment on above: Performed By: #### P TT, PT #### [facility] [address] [place] [address] Dr. Celi Guerin Crystals LM Nom (Urine sed) NONE SEEN Normal NONE SEEN [facility] Comment on above: Performed By: #### P TT, PT #### [facility] [address] [place] [address] Dr. Celi Guerin Epithelial cells LM Ql (Urine sed) FEW Abnormal NONE SEEN /RARE [facility] Comment on above: Performed By: #### P TT, PT #### [facility] [address] [place] [address] Dr. Celi Guerin MUCOUS SMALL Abnormal NONE SEEN [facility] Comment on above: Performed By: #### P TT, PT #### [facility] [address] [place] [address] Dr. Celi Guerin RBC 5-10 Abnormal 0-2 [facility] Comment on above: Performed By: #### P TT, PT #### [facility] [address] [place] [address] Dr. Celi Guerin WBC 0-2 Abnormal NONE SEEN [facility] Comment on above: Performed By: #### P TT, PT #### [facility] [address] [place] [address] Dr. Celi Guerin CBC AUTO DIFFon 10-09-2021 BASO # 0.0 103/ul Normal 0.0-0.1 [facility] Comment on above: Performed By: #### ARTEMIO GOMEZ #### [facility] [address] [place] [address] Dr. Celi Guerin Basophils/100 WBC (Bld) 0.1 % Critically low 0.2-2.0 [facility] Comment on above: Performed By: #### ARTEMIO GOMEZ #### [facility] [address] [place] [address] Dr. Celi Guerin EO # 0.0 103/ul Normal 0.0-0.7 [facility] Comment on above: Performed By: #### ARTEMIO GOMEZ #### [facility] [address] [place] [address] Dr. Celi Guerin Eosinophils/100 WBC (Bld) 0.1 % Critically low 0.9-7.0 [facility] Comment on above: Performed By: #### ARTEMIO GOMEZ #### [facility] [address] [place] [address] Dr. Celi Guerin Erythrocyte distribution width (RBC) [Ratio] 18.5 % Critically high 11.0-15.0 [facility] Comment on above: Performed By: #### ARTEMIO GOMEZ #### [facility] [address] [address] [address] Celi Guerin Hematocrit (Bld) [Volume fraction] 36.0 % Normal 36.0-48.0 [facility] Comment on above: Performed By: #### E LUCEROR, UMICRO #### [facility] [address] [place] [address] Dr. Celi Guerin Hemoglobin (Bld) [Mass/Vol] 11.3 g/dL Critically low 12.0-16.0 [facility] Comment on above: Performed By: #### E RUR, UMICRO #### [facility] [address] [place] [address] Dr. Celi Guerin IG # 0.06 10e3/ul Critically high 0.00-0.03 [facility] Comment on above: Performed By: #### E RURuma, UMICRO #### [facility] [address] [place] [address] Dr. Celi Guerin IG % 0.8 % Critically high 0.0-0.5 [facility] Comment on above: Performed By: #### Sergey ESTRELLA, UMICRO #### [facility] [address] [place] [address] Dr. Celi uGerin LYMPH # 1.5 103/ul Normal 1.2-3.8 [facility] Comment on above: Performed By: #### Sergey ESTRELLA, UMICRO #### [facility] [address] [place] [address] Dr. Celi Guerin Lymphocytes/100 WBC (Bld) 19.3 % Critically low 20.5-60.0 [facility] Comment on above: Performed By: #### E RUR, UMICRO #### [facility] [address] [place] [address] Dr. Celi Guerin MANUAL DIFF REQ NO Normal [facility] Comment on above: Performed By: #### E RUR, UMICRO #### [facility] [address] [place] [address] Dr. Celi Guerin MCH (RBC) [Entitic mass] 25.7 pg Critically low 26.7-34.0 [facility] Comment on above: Performed By: #### YURI GOMEZRO #### [facility] [address] [place] [address] Dr. Celi Guerin MCHC (RBC) [Mass/Vol] 31.4 g/dL Normal 29.9-35.2 [facility] Comment on above: Performed By: #### YURI GOMEZRO #### [facility] [address] [place] [address] Dr. Celi Guerin MCV (RBC) [Entitic vol] 81.8 fL Normal 81.0-99.0 [facility] Comment on above: Performed By: #### YURI GOMEZRO #### [facility] [address] [place] [address] Dr. Celi Guerin MONO # 0.6 103/ul Normal 0.3-0.8 [facility] Comment on above: Performed By: #### YURI GOMEZRO #### [facility] [address] [place] [address] Dr. Celi Guerin Monocytes/100 WBC (Bld) 7.9 % Normal 1.7-12.0 [facility] Comment on above: Performed By: #### YURI GOMEZRO #### [facility] [address] [place] [address] Dr. Celi Guerin NEUT # 5.6 103/ul Normal 1.4-6.5 [facility] Comment on above: Performed By: #### YURI GOMEZRO #### [facility] [address] [place] [address] Dr. Celi Guerin Neutrophils/100 WBC (Bld) 71.8 % Normal 43.0-75.0 [facility] Comment on above: Performed By: #### YURI GOMEZRO #### [facility] [address] [place] [address] Dr. Celi Guerin Platelet mean volume (Bld) [Entitic vol] 10.3 fL Normal 9.5-13.5 [facility] Comment on above: Performed By: #### YURI GOMEZRO #### [facility] [address] [address] [address] Celi Guerin PLT 78 103/ul Critically low 150-450 [facility] Comment on above: Performed By: #### ARTEMIO GOMEZ #### [facility] [address] [address] [address] Celi Guerin RBC 4.40 106/ul Normal 4.20-5.40 [facility] Comment on above: Performed By: #### ARTEMIO GOMEZ #### [facility] [address] [address] [address] Celi Guerin WBC 7.8 103/ul Normal 4.0-11.0 [facility] Comment on above: Performed By: #### ARTEMIO GOMEZ #### [facility] [address] [address] [address] Celi Guerin Covid-19 PCR ([facility])on 09-26 SARS-CoV-2 (COVID-19) RNA LIBERTAD+probe Ql (Unsp spec) Not detected Normal NOT DETECTED [facility] Comment on above: Result Comment: When [...] for this test is supported by the Child Welfare Specialist of Health and Human Service's declaration that [...] Performed By: #### P TT, PT #### [facility] [address] [address] [address] Celi Guerin ETHANOL (BLD ALC)on 04-14-20 22 ALC NOTE NOTE: 80 mg/dl is th e legal limit for a blood alcohol level Normal [facility] Comment on above: Performed By: #### P TT, PT #### [facility] [address] [place] [address] Dr. Celi Guerin Ethanol [Mass/Vol] 26 mg/dL Normal [facility] Comment on above: Performed By: #### P TT, PT #### [facility] [address] [place] [address] Dr. Celi Guerin LIPASEon 10-09-2021 Lipase [Catalytic activity/Vol] U/L Critically high 23.0-300.0 [facility] Comment on above: Performed By: #### P TT, PT #### [facility] [address] [place] [address] Dr. Celi Guerin PROF 14(COMP METB)on 022 Albumin [Mass/Vol] 4.1 g/dL Normal 3.4-5.0 [facility] Comment on above: Performed By: #### P TT, PT #### [facility] [address] [place] [address] Dr. Celi Guerin Albumin/Globulin [Mass ratio] 1.1 {ratio} Normal [facility] Comment on above: Performed By: #### P TT, PT #### [facility] [address] [place] [address] Dr. Celi Guerin ALP [Catalytic activity/Vol] 100 U/L Normal 46-116 [facility] Comment on above: Performed By: #### P TT, PT #### [facility] [address] [place] [address] Dr. Celi Guerin ALT [Catalytic activity/Vol] 44 U/L Normal 14-59 [facility] Comment on above: Performed By: #### P TT, PT #### [facility] [address] [place] [address] Dr. Celi Guerin Anion gap [Moles/Vol] 18.9 mmol/L Normal [facility] Comment on above: Performed By: #### P TT, PT #### [facility] [address] [address] [address] Celi Guerin AST [Catalytic activity/Vol] 84 U/L Critically high 15-37 [facility] Comment on above: Performed By: #### P TT, PT #### [facility] [address] [place] [address] Dr. Celi Guerin Bilirubin [Mass/Vol] 0.6 mg/dL Normal 0.2-1.3 [facility] Comment on above: Performed By: #### P TT, PT #### [facility] [address] [place] [address] Dr. Celi Guerin Calcium [Mass/Vol] 8.8 mg/dL Normal 8.5-10.1 [facility] Comment on above: Performed By: #### P TT, PT #### [facility] [address] [place] [address] Dr. Celi Guerin Chloride [Moles/Vol] 100 mmol/L Normal 98-107 [facility] Comment on above: Performed By: #### P TT, PT #### [facility] [address] [place] [address] Dr. Celi Guerin CO2 [Moles/Vol] 20.8 mmol/L Critically low 22.0-30.0 [facility] Comment on above: Performed By: #### P TT, PT #### [facility] [address] [place] [address] Dr. Celi Guerin Creatinine [Mass/Vol] 0.56 mg/dL Normal 0.52-1.04 [facility] Comment on above: Performed By: #### P TT, PT #### [facility] [address] [place] [address] Dr. Celi Guerin EGFR-AF BURKINAN >60 Normal >=60 [facility] Comment on above: Performed By: #### P TT, PT #### [facility] [address] [place] [address] Dr. Celi Guerin EGFR-NON AF BURKINAN >60 Normal >=60 [facility] Comment on above: Performed By: #### P TT, PT #### [facility] [address] [place] [address] Dr. Celi Guerin Globulin (S) [Mass/Vol] 3.8 g/dL Normal [facility] Comment on above: Performed By: #### P TT, PT #### [facility] [address] [place] [address] Dr. Celi Guerin Glucose [Mass/Vol] 130 mg/dL Critically high 74-106 [facility] Comment on above: Performed By: #### P TT, PT #### [facility] [address] [place] [address] Dr. Celi Guerin Potassium [Moles/Vol] 3.7 mmol/L Normal 3.4-5.0 [facility] Comment on above: Performed By: #### P TT, PT #### [facility] [address] [place] [address] Dr. Celi Guerin Protein [Mass/Vol] 7.9 g/dL Normal 6.1-8.2 [facility] Comment on above: Performed By: #### P TT, PT #### [facility] [address] [place] [address] Dr. Celi Guerin Sodium [Moles/Vol] 136 mmol/L Critically low 137-145 [facility] Comment on above: Performed By: #### P TT, PT #### [facility] [address] [place] [address] Dr. Celi Guerin Urea nitrogen [Mass/Vol] 9.0 mg/dL Normal 7.0-18.0 [facility] Comment on above: Performed By: #### P TT, PT #### [facility] [address] [place] [address] Dr. Celi Guerin Urea nitrogen/Creatinine [Mass ratio] 16.1 mg/mg Normal [facility] Comment on above: Performed By: #### P TT, PT #### [facility] [address] [place] [address] Dr. Celi Guerin CULTURE URINEon 09-02-2021 CULTURE [...] Trimethoprim/Sulfamet hoxazole <=20 S F Normal [facility] Comment on above: Performed By: #### P TT, PT #### [facility] [address] [place] [address] Dr. Celi Guerin AMYLASEon 08-30-2021 Amylase [Catalytic activity/Vol] 538 U/L Critically high 31-110 [facility] Comment on above: Result Comment: TEST REPEATED CRITICAL VALUE VERIFIED Performed By: #### P TT, PT #### [facility] [address] [place] [address] Dr. Celi Guerin CBC AUTO DIFFon 08-30-2021 BASO # 0.0 103/ul Normal 0.0-0.1 [facility] Comment on above: Performed By: #### ARTEMIO GOMEZ #### [facility] [address] [place] [address] Dr. Celi Guerin Basophils/100 WBC (Bld) 0.2 % Normal 0.2-2.0 [facility] Comment on above: Performed By: #### ARTEMIO GOMEZ #### [facility] [address] [place] [address] Dr. Celi Guerin EO # 0.0 103/ul Normal 0.0-0.7 [facility] Comment on above: Performed By: #### ARTEMIO GOMEZ #### [facility] [address] [place] [address] Dr. Celi Guerin Eosinophils/100 WBC (Bld) 0.2 % Critically low 0.9-7.0 [facility] Comment on above: Performed By: #### ARTEMIO GOMEZ #### [facility] [address] [place] [address] Dr. Celi Guerin Erythrocyte distribution width (RBC) [Ratio] 17.0 % Critically high 11.0-15.0 [facility] Comment on above: Performed By: #### Sergey ESTRELLA UMICRO #### [facility] [address] [place] [address] Dr. Celi Guerin Hematocrit (Bld) [Volume fraction] 34.2 % Critically low 36.0-48.0 [facility] Comment on above: Performed By: #### Sergey ESTRELLA, UMICRO #### [facility] [address] [place] [address] Dr. Celi Guerin Hemoglobin (Bld) [Mass/Vol] 10.6 g/dL Critically low 12.0-16.0 [facility] Comment on above: Performed By: #### Sergey ESTRELLA UMICRO #### [facility] [address] [place] [address] Dr. Celi Guerin IG # 0.03 10e3/ul Normal 0.00-0.03 [facility] Comment on above: Performed By: #### Sergey ESTRELLA UMICRO #### [facility] [address] [place] [address] Dr. Celi Guerin IG % 0.5 % Normal 0.0-0.5 [facility] Comment on above: Performed By: #### Sergey ESTRELLA, UMICRO #### [facility] [address] [place] [address] Dr. Celi Guerin LYMPH # 0.8 103/ul Critically low 1.2-3.8 [facility] Comment on above: Performed By: #### Sergey ESTRELLA, UMICRO #### [facility] [address] [place] [address] Dr. Celi Guerin Lymphocytes/100 WBC (Bld) 14.4 % Critically low 20.5-60.0 [facility] Comment on above: Performed By: #### Sergey ESTRELLA, UMICRO #### [facility] [address] [place] [address] Dr. Celi Guerin MANUAL DIFF REQ NO Normal [facility] Comment on above: Performed By: #### Sergey ESTRELLA UMICRO #### [facility] [address] [place] [address] Dr. Celi Guerin MCH (RBC) [Entitic mass] 26.9 pg Normal 26.7-34.0 [facility] Comment on above: Performed By: #### Sergey ESTRELLA UMICRO #### [facility] [address] [place] [address] Dr. Celi Guerin MCHC (RBC) [Mass/Vol] 31.0 g/dL Normal 29.9-35.2 [facility] Comment on above: Performed By: #### Sergey ESTRELLA UMICRO #### [facility] [address] [place] [address] Dr. Celi Guerin MCV (RBC) [Entitic vol] 86.8 fL Normal 81.0-99.0 [facility] Comment on above: Performed By: #### Sergey ESTRELLA UMICRO #### [facility] [address] [place] [address] Dr. Celi Guerin MONO # 0.3 103/ul Normal 0.3-0.8 [facility] Comment on above: Performed By: #### FLOR GOMEZICRO #### [facility] [address] [place] [address] Dr. Celi Guerin Monocytes/100 WBC (Bld) 4.9 % Normal 1.7-12.0 [facility] Comment on above: Performed By: #### FLOR GOMEZICRO #### [facility] [address] [place] [address] Dr. Celi Guerin NEUT # 4.6 103/ul Normal 1.4-6.5 [facility] Comment on above: Performed By: #### Sergey ESTRELLA UMICRO #### [facility] [address] [place] [address] Dr. Celi Guerin Neutrophils/100 WBC (Bld) 79.8 % Critically high 43.0-75.0 [facility] Comment on above: Performed By: #### Sergey ESTRELLA UMICRO #### [facility] [address], [place] [address] Dr. Celi Guerin Platelet mean volume (Bld) [Entitic vol] 11.7 fL Normal 9.5-13.5 [facility] Comment on above: Performed By: #### E RUR, UMICRO #### [facility] [address] [place], [place] [address] Dr. Celi Guerin PLT 68 103/ul Critically low 150-450 [facility] Comment on above: Performed By: #### E RUR, UMICRO #### [facility] [address] [place], [place] [address] Dr. Celi Guerin RBC 3.94 106/ul Critically low 4.20-5.40 [facility] Comment on above: Performed By: #### E LUCREOR, UMICRO #### [facility] [address] [place], [place] [address] Dr. Celi Guerin WBC 5.8 103/ul Normal 4.0-11.0 [facility] Comment on above: Performed By: #### Sergey BARKERR, UMICRO #### [facility] [address] [place], [place] [address] ABD/PELVIS WO CONon [...] BOONE LEA Date: 2021-08-30 18:43 Normal [facility] URINE PROFILEon 2 Bilirubin Ql (U) SMALL Abnormal NEGATIVE [facility] Comment on above: Performed By: #### ARTEMIO GOMEZ #### [facility] [address] [address] [address] Celi Guerin Clarity (U) CLEAR Normal CLEAR [facility] Comment on above: Performed By: #### ARTEMIO GOMEZ #### [facility] [address] [place], [place] [address] Dr. Celi Guerin Color (U) YELLOW Normal YELLOW [facility] Comment on above: Performed By: #### ARTEMIO GOMEZ #### [facility] [address] [place] [address] Dr. Celi LUCAS A micrscopic examination will be performed if indicated. Normal [facility] Comment on above: Performed By: #### YURI GOMEZRO #### [facility] [address] [place] [address] Dr. Celi Guerin Glucose Ql (U) Negative Normal NEGATIVE [facility] Comment on above: Performed By: #### YURI GOMEZRO #### [facility] [address] [place] [address] Dr. Celi Guerin Hemoglobin Ql (U) Negative Normal NEGATIVE [facility] Comment on above: Performed By: #### YURI GOMEZRO #### [facility] [address] [place] [address] Dr. Celi Guerin Ketones Ql (U) >=80 Abnormal NEGATIVE [facility] Comment on above: Performed By: #### YURI GOMEZRO #### [facility] [address] [place] [address] Dr. Celi Guerin LEUKOCYTES MODERATE Abnormal NEGATIVE [facility] Comment on above: Performed By: #### YURI GOMEZRO #### [facility] [address] [place] [address] Dr. Celi Guerin Nitrite Ql (U) Positive Abnormal NEGATIVE [facility] Comment on above: Performed By: #### YURI GOMEZRO #### [facility] [address] [place] [address] Dr. Celi Guerin pH (U) 6.5 [pH] Normal 5-9 [facility] Comment on above: Performed By: #### YURI GOMEZRO #### [facility] [address] [place] [address] Dr. Celi Guerin Protein (U) [Mass/Vol] 100 mg/dL Abnormal NEGATIVE/ TRACE [facility] Comment on above: Performed By: #### YURI GOMEZRO #### [facility] [address] [place] [address] Dr. Celi Guerin SPEC GRAVITY 1.020 Normal 1.005-<=1.025 [facility] Comment on above: Performed By: #### E ARTEMIO ESTRELLA #### [facility] [address] [place] [address] Dr. Celi Guerin UR MICRO IND INDICATED Normal [facility] Comment on above: Performed By: #### E YURI ESTRELLARO #### [facility] [address] [place] [address] Dr. Celi Guerin Urobilinogen Qn (U) 2.0 {Irlanda'U}/dL Abnormal 0.2 - 1. 0 [facility] Comment on above: Performed By: #### ARTEMIO GOMEZ #### [facility] [address] [place] [address] Dr. Celi Guerin ETHANOL (BLD ALC)on 08-31-19 22 ALC NOTE NOTE: 80 mg/dl is th e legal limit for a blood alcohol level Normal [facility] Comment on above: Performed By: #### E TH #### [facility] [address] [place] [address] Dr. Ceil Guerin Ethanol [Mass/Vol] mg/dL Normal [facility] Comment on above: Performed By: #### E TH #### [facility] [address] [place] [address] Dr. Celi Guerin LIPASEon 08-30-2021 Lipase [Catalytic activity/Vol] U/L Critically high 23.0-300.0 [facility] Comment on above: Result Comment: TEST REPEATED CRITICAL VALUE VERIFIED Performed By: #### P TT, PT #### [facility] [address] [place] [address] Dr. Celi Guerin PROF 14(COMP METB)on 022 Albumin [Mass/Vol] 3.9 g/dL Normal 3.5-5.0 [facility] Comment on above: Performed By: #### P TT, PT #### [facility] [address] [place] [address] Dr. Celi Guerin Albumin/Globulin [Mass ratio] 1.1 {ratio} Normal [facility] Comment on above: Performed By: #### P TT, PT #### [facility] [address] [address] [address] Celi Guerin ALP [Catalytic activity/Vol] 91 U/L Normal 38-126 [facility] Comment on above: Performed By: #### P TT, PT #### [facility] [address] [address] [address] Celi Guerin ALT [Catalytic activity/Vol] 52 U/L Normal 9-52 [facility] Comment on above: Performed By: #### P TT, PT #### [facility] [address] [address] [address] Celi Guerin Anion gap [Moles/Vol] 16.7 mmol/L Normal [facility] Comment on above: Performed By: #### P TT, PT #### [facility] [address] [place] [address] Dr. Celi Guerin AST [Catalytic activity/Vol] 59 U/L Critically high 14-36 [facility] Comment on above: Performed By: #### P TT, PT #### [facility] [address] [address] [address] Celi Guerin Bilirubin [Mass/Vol] 1.0 mg/dL Normal 0.2-1.3 [facility] Comment on above: Performed By: #### P TT, PT #### [facility] [address] [address] [address] Celi Guerin Calcium [Mass/Vol] 9.0 mg/dL Normal 8.4-10.2 [facility] Comment on above: Performed By: #### P TT, PT #### [facility] [address] [address] [address] Celi Guerin Chloride [Moles/Vol] 95 mmol/L Critically low 98-107 [facility] Comment on above: Performed By: #### P TT, PT #### [facility] [address] [address] [address] Celi Guerin CO2 [Moles/Vol] 22.8 mmol/L Normal 22.0-30.0 [facility] Comment on above: Performed By: #### P TT, PT #### [facility] [address] [address] [address] Celi Guerin Creatinine [Mass/Vol] 0.57 mg/dL Normal 0.52-1.04 [facility] Comment on above: Performed By: #### P TT, PT #### [facility] [address] [address] [address] Celi Guerin EGFR-AF BURKINAN >60 Normal >=60 [facility] Comment on above: Performed By: #### P TT, PT #### [facility] [address] [address] [address] Celi Guerin EGFR-NON AF BURKINAN >60 Normal >=60 [facility] Comment on above: Performed By: #### P TT, PT #### [facility] [address] [place] [address] Dr. Celi Guerin Globulin (S) [Mass/Vol] 3.5 g/dL Normal [facility] Comment on above: Performed By: #### P TT, PT #### [facility] [address] [address] [address] Celi Guerin Glucose [Mass/Vol] 82 mg/dL Normal 74-106 [facility] Comment on above: Performed By: #### P TT, PT #### [facility] [address] [place] [address] Dr. Celi Guerin Potassium [Moles/Vol] 3.5 mmol/L Normal 3.4-5.0 [facility] Comment on above: Performed By: #### P TT, PT #### [facility] [address] [address] [address] Celi Guerin Protein [Mass/Vol] 7.4 g/dL Normal 6.1-8.2 [facility] Comment on above: Performed By: #### P TT, PT #### [facility] [address] [place] [address] Dr. Celi Guerin Sodium [Moles/Vol] 131 mmol/L Critically low 137-145 Th [facility] Comment on above: Performed By: #### P TT, PT #### [facility] [address] [place] [address] Dr. Celi Guerin Urea nitrogen [Mass/Vol] 8.0 mg/dL Normal 7.0-17.0 [facility] Comment on above: Performed By: #### P TT, PT #### [facility] [address] [place] [address] Dr. Celi Guerin Urea nitrogen/Creatinine [Mass ratio] 14.0 mg/mg Normal [facility] Comment on above: Performed By: #### P TT, PT #### [facility] [address] [place] [address] Dr. Celi Guerin URINE MICROSCOPIC ONLYon BACTERIA MODERATE Abnormal NONE SEEN [facility] Comment on above: Performed By: #### E SAMEER, UMICRO #### [facility] [address] [place] [address] Dr. Celi Guerin Bacteria identified Cx Nom (U) INDICATED Normal [facility] Comment on above: Performed By: #### E SAMEER UMICRO #### [facility] [address] [place] [address] Dr. Celi Guerin CAST SEEN Abnormal NONE SEEN [facility] Comment on above: Performed By: #### E SAMEER UMICRO #### [facility] [address] [place] [address] Dr. Celi Guerin Crystals LM Nom (Urine sed) NONE SEEN Normal NONE SEEN [facility] Comment on above: Performed By: #### E SAMEER UMICRO #### [facility] [address] [place] [address] Dr. Celi Guerin Epithelial cells LM Ql (Urine sed) FEW Abnormal NONE SEEN /RARE [facility] Comment on above: Performed By: #### E SAMEER UMICRO #### [facility] [address] [place] [address] Dr. Celi Guerin HYALINE CAST RARE Normal [facility] Comment on above: Performed By: #### Sergey ESTRELLA, UMICRO #### [facility] [address] [place] [address] Dr. Celi Guerin MUCOUS NONE SEEN Normal NONE SEEN [facility] Comment on above: Performed By: #### YURI GOMEZRO #### [facility] [address] [place] [address] Dr. Celi Guerin RBC 0-2 Normal 0-2 [facility] Comment on above: Performed By: #### YURI GOMEZRO #### [facility] [address] [place] [address] Dr. Celi Guerin WBC 10-20 Abnormal NONE SEEN [facility] Comment on above: Performed By: #### YURI GOMEZRO #### [facility] [address] [place] [address] Dr. Celi Guerin AMYLASEon 07-04-2021 Amylase [Catalytic activity/Vol] 113 U/L Critically high 31-110 [facility] Comment on above: Performed By: #### YURI GOMEZRO #### [facility] [address] [place] [address] Dr. Celi Guerin CBC AUTO DIFFon 07-04-2021 BASO # 0.0 103/ul Normal 0.0-0.1 [facility] Comment on above: Performed By: #### C BC #### [facility] [address] [place] [address] Dr. Celi Guerin Basophils/100 WBC (Bld) 0.3 % Normal 0.2-2.0 [facility] Comment on above: Performed By: #### C BC #### [facility] [address] [place] [address] Dr. Celi Guerin EO # 0.0 103/ul Normal 0.0-0.7 [facility] Comment on above: Performed By: #### C BC #### [facility] [address] [place] [address] Dr. Celi Guerin Eosinophils/100 WBC (Bld) 0.0 % Critically low 0.9-7.0 [facility] Comment on above: Performed By: #### C BC #### [facility] [address] [place] [address] Dr. Celi Guerin Erythrocyte distribution width (RBC) [Ratio] 20.1 % Critically high 11.0-15.0 [facility] Comment on above: Performed By: #### C BC #### [facility] [address] [place] [address] Dr. Celi Guerin Hematocrit (Bld) [Volume fraction] 36.8 % Normal 36.0-48.0 [facility] Comment on above: Performed By: #### C BC #### [facility] [address] [place] [address] Dr. Celi Guerin Hemoglobin (Bld) [Mass/Vol] 12.3 g/dL Normal 12.0-16.0 [facility] Comment on above: Performed By: #### C BC #### [facility] [address] [place] [address] Dr. Celi Guerin IG # 0.04 10e3/ul Critically high 0.00-0.03 [facility] Comment on above: Performed By: #### C BC #### [facility] [address] [place] [address] Dr. Celi Guerin IG % 0.6 % Critically high 0.0-0.5 [facility] Comment on above: Performed By: #### C BC #### [facility] [address] [place] [address] Dr. Celi Guerin LYMPH # 0.9 103/ul Critically low 1.2-3.8 [facility] Comment on above: Performed By: #### C BC #### [facility] [address] [place] [address] Dr. Celi Guerin Lymphocytes/100 WBC (Bld) 12.7 % Critically low 20.5-60.0 [facility] Comment on above: Performed By: #### C BC #### [facility] [address] [place] [address] Dr. Celi Guerin MANUAL DIFF REQ NO Normal [facility] Comment on above: Performed By: #### C BC #### [facility] [address] [place] [address] Dr. Celi Guerin MCH (RBC) [Entitic mass] 29.5 pg Normal 26.7-34.0 [facility] Comment on above: Performed By: #### C BC #### [facility] [address] [place] [address] Dr. Celi Guerin MCHC (RBC) [Mass/Vol] 33.4 g/dL Normal 29.9-35.2 [facility] Comment on above: Performed By: #### C BC #### [facility] [address] [place] [address] Dr. Celi Guerin MCV (RBC) [Entitic vol] 88.2 fL Normal 81.0-99.0 [facility] Comment on above: Performed By: #### C BC #### [facility] [address] [place] [address] Dr. Celi Guerin MONO # 0.5 103/ul Normal 0.3-0.8 [facility] Comment on above: Performed By: #### C BC #### [facility] [address] [place] [address] Dr. Celi Guerin Monocytes/100 WBC (Bld) 6.9 % Normal 1.7-12.0 [facility] Comment on above: Performed By: #### C BC #### [facility] [address] [place] [address] Dr. Celi Guerin NEUT # 5.5 103/ul Normal 1.4-6.5 [facility] Comment on above: Performed By: #### C BC #### [facility] [address] [place] [address] Dr. Celi Guerin Neutrophils/100 WBC (Bld) 79.5 % Critically high 43.0-75.0 [facility] Comment on above: Performed By: #### C BC #### [facility] [address] [place] [address] Dr. Celi Guerin Platelet mean volume (Bld) [Entitic vol] 10.0 fL Normal 9.5-13.5 [facility] Comment on above: Performed By: #### C BC #### [facility] [address] [place] [address] Dr. Celi Guerin PLT 95 103/ul Critically low 150-[address] [facility] Comment on above: Performed By: #### C BC #### [facility] [address] [place], [place] [address] Dr. Celi Guerin RBC 4.17 106/ul Critically low 4.20-5.40 [facility] Comment on above: Performed By: #### C BC #### [facility] [address] [place], [place] [address] Dr. Celi Guerin WBC 7.0 103/ul Normal 4.0-11.0 [facility] Comment on above: Performed By: #### C BC #### [facility] [address] [place], [place] [address] ABD/PELV W CONon [...] OSMIN MCGEE Date: 2021-07-04 16:56 Normal [facility] ETHANOL (BLD ALC)on 07-04-19 22 ALC NOTE NOTE: 80 mg/dl is [facility] legal limit for a blood alcohol level Normal [facility] Comment on above: Performed By: #### ARTEMIO GOMEZ #### [facility] [address] [place] [address] Dr. Celi Guerin Ethanol [Mass/Vol] 35 mg/dL Normal [facility] Comment on above: Performed By: #### YURI GOMEZRO #### [facility] [address] [place] [address] Dr. Celi Guerin LIPASEon 07-04-2021 Lipase [Catalytic activity/Vol] 830.0 U/L Critically high 23.0-300.0 [facility] Comment on above: Performed By: #### ARTEMIO GOMEZ #### [facility] [address] [place] [address] Dr. Celi Guerin PREG HCG QUALon 07-04-2021 , QUAL Negative Normal NEGATIVE [facility] Comment on above: Performed By: #### P REG #### [facility] [address] [place] [address] Dr. Celi Guerin PROF 14(COMP METB)on 022 Albumin [Mass/Vol] 3.2 g/dL Critically low 3.5-5.[address] [facility] Comment on above: Performed By: #### YURI GOMEZRO #### [facility] [address] [place] [address] Dr. Celi Guerin Albumin/Globulin [Mass ratio] 0.7 {ratio} Normal [facility] Comment on above: Performed By: #### YURI GOMEZRO #### [facility] [address] [place] [address] Dr. Celi Guerin ALP [Catalytic activity/Vol] 126 U/L Normal 38-126 [facility] Comment on above: Performed By: #### YURI GOMEZRO #### [facility] [address] [place] [address] Dr. Celi Guerin ALT [Catalytic activity/Vol] 60 U/L Critically high 9-52 [facility] Comment on above: Performed By: #### YURI GOMEZRO #### [facility] [address] [place] [address] Dr. Celi Guerin Anion gap [Moles/Vol] 17.7 mmol/L Normal [facility] Comment on above: Performed By: #### YURI GOMEZRO #### [facility] [address] [place] [address] Dr. Celi Guerin AST [Catalytic activity/Vol] 112 U/L Critically high 14-36 [facility] Comment on above: Performed By: #### YURI GOMEZRO #### [facility] [address] [place] [address] Dr. Celi Guerin Bilirubin [Mass/Vol] 0.7 mg/dL Normal 0.2-1.3 [facility] Comment on above: Performed By: #### YURI GOMEZRO #### [facility] [address] [place] [address] Dr. Celi Guerin Calcium [Mass/Vol] 8.5 mg/dL Normal 8.4-10.2 [facility] Comment on above: Performed By: #### Sergey ESTRELLA UMICRO #### [facility] [address] [place] [address] Dr. Celi Guerin Chloride [Moles/Vol] 98 mmol/L Normal 98-107 [facility] Comment on above: Performed By: #### Sergey ESTRELLA UMICRO #### [facility] [address] [place] [address] Dr. Celi Guerin CO2 [Moles/Vol] 23.5 mmol/L Normal 22.0-30.0 [facility] Comment on above: Performed By: #### Sergey ESTRELLA UMICRO #### [facility] [address] [place] [address] Dr. Celi Guerin Creatinine [Mass/Vol] 0.57 mg/dL Normal 0.52-1.04 [facility] Comment on above: Performed By: #### E LUCEROR, UMICRO #### [facility] [address] [place] [address] [address] Celi Guerin EGFR-AF BURKINAN >60 Normal >=60 [facility] Comment on above: Performed By: #### E LUCEROR, UMICRO #### [facility] [address] [place] [address] [address] Celi Guerin EGFR-NON AF BURKINAN >60 Normal >=60 [facility] Comment on above: Performed By: #### E RUR, UMICRO #### [facility] [address] [place] [address] [address] Celi Guerin Globulin (S) [Mass/Vol] 4.3 g/dL Normal [facility] Comment on above: Performed By: #### E SAMEER, UMICRO #### [facility] [address] [place] [address] Dr. Celi Guerin Glucose [Mass/Vol] 104 mg/dL Normal 74-106 [facility] Comment on above: Performed By: #### E SAMEER, UMICRO #### [facility] [address] [place] [address] [address] Celi Guerin Potassium [Moles/Vol] 3.2 mmol/L Critically low 3.4-5.0 [facility] Comment on above: Performed By: #### Sergey ESTRELLA, UMICRO #### [facility] [address] [place] [address] [address] Celi Guerin Protein [Mass/Vol] 7.5 g/dL Normal 6.1-8.2 [facility] Comment on above: Performed By: #### Sergey ESTRELLA, UMICRO #### [facility] [address] [place] [address] [address] Celi Guerin Sodium [Moles/Vol] 136 mmol/L Critically low 137-[address] [facility] Comment on above: Performed By: #### E LUCEROR, UMICRO #### [facility] [address] [place] [address] [address] Celi Guerin Urea nitrogen [Mass/Vol] 5.0 mg/dL Critically low 7.0-17.0 [facility] Comment on above: Performed By: #### E YURI ESTRELLARO #### [facility] [address] [place] [address] Dr. Celi Guerin Urea nitrogen/Creatinine [Mass ratio] 8.8 mg/mg Normal [facility] Comment on above: Performed By: #### E YURI ESTRELLARO #### [facility] [address] [place] [address] Dr. Celi Guerin PROTIMEon 07-04-2021 INR Coag (PPP) [Relative time] 1.03 {INR} Normal [facility] Comment on above: Performed By: #### P TT, PT #### [facility] [address] [place] [address] Dr. Celi Guerin INR GUIDELINES SEE BELOW Normal [facility] Comment on above: Result Comment: KIRILL RED INR: 2.0 - 3.0 CONDITIONS NOT LISTED BELOW 2.5 - 3.5 FOR PROSTHETIC HEART VALVE REPLACEMENT 2.5 - 3.5 RECURRENT THROMBOSIS Performed By: #### P TT, PT #### [facility] [address] [place] [address] Dr. Celi Guerin PT Coag (PPP) [Time] 11.1 s Normal 9.0-11.6 [facility] Comment on above: Performed By: #### P TT, PT #### [facility] [address] [place] [address] Dr. Celi Guerin PTTon 07-04-2021 aPTT Coag (Bld) [Time] 27.6 s Normal 22.3-36.2 [facility] Comment on above: Performed By: #### P TT, PT #### [facility] [address] [place] [address] Dr. Celi Guerin [facility]on SARS-CoV-2 (COVID-19) RNA LIBERTAD+probe Ql (Unsp spec) Not detected Normal NOT DETECTED [facility] Comment on above: Result Comment: When [...] for this test is supported by the Child Welfare Specialist of Health and Human Service's declaration that [...] used). Performed By: #### ARTEMIO GOMEZ #### [facility] [address] [place] [address] Dr. Celi Guerin COVID-19/INFLUENZA A,B [facility] 05-21-2020 COVID-19/INFLUENZA A,B MOLECULAR SARS-COV-2 (YUNG): Detected INFLUENZA A (YUNG): Not Detected INFLUENZA B (YUNG): Not Detected Normal Not Detected [facility] Comment on above: Order Comment: This test [...] at the following links: For Healthcare Providers: https://www.fda.gov/media/978104/download For Patients: https://www.fda.gov/media/038623/download Performed By: #### L [id number] #### [facility] [address] [address] Faye Enriquez M.D. [id number] COVID-19/Influenza A,B [facility] 05-21-2020 Influenza A Not Detected Not Detected [facility] [place] Influenza B Not Detected Not Detected [facility] Interpretation and review of laboratory results Abnormal [...] at the following links: For Healthcare Providers: https://www.[facility].gov/m edia/181117/download For Patients: https://www.fda.gov/m edia/012717/download [facility] INCISION AND DRAINAGEon 09-26 Maria [...] 0 Ethanol [Mass/Vol] 342.00 mg/dL High <10.00 [facility] Interpretation and review of laboratory results [...] [Mass/Vol] 86 mg/dL 65 - 99 mg/dL [facility] HCO3 [Moles/Vol] 24 mmol/L 21 - 32 mmol/L [facility] Interpretation and review of laboratory results [...] [facility] Neutrophils (Bld) [#/Vol] 9.16 10*3/uL [facility] Neutrophils/100 WBC (Bld) 69.6 % [facility] Nucleated RBC (Bld) [#/Vol] 0.01 10*3/uL [facility] Nucleated RBC/100 WBC (Bld) [Ratio] 0.1 % [facility] Platelet mean volume (Bld) [Entitic vol] 10.0 fL 9 - 15.5 fL [facility] Platelets (Bld) [#/Vol] 191 10*3/uL [facility] RBC (Bld) [#/Vol] 4.40 10*6/uL [facility] ealth WBC (Bld) [#/Vol] 13.15 10*3/uL [facility] CT ABDOMEN PELVIS WITH IV CO [...] is normal. 2. Hepatic steatosis. Workstation ID: [id number] Dictated by: MELINA BAILEY on WedAug 29, 2019 2:37:05 PM EST Transcribed by: MELINA BAILEY on WedAug 29, 2019 2:37:05 PM EST Finalized by: MELINA BAILEY on WedAug 29, 2019 2:37:05 PM EST Normal [facility] Comment on above: Order Comment: Injur y/Trauma [...] nondilated. There is no acute osseous pathology. [facility], Rad In Fuji Speechq - 08/29/2019 2:39 [...] is normal. 2. Hepatic steatosis. Workstation ID: [id number] [facility] 1. Fairly diffuse colonic wall thickening that may reflect incomplete bowel distention and spasm versus a mild colitis. There is no bowel obstruction. The appendix is normal. 2. Hepatic steatosis. Workstation ID: [id number] [facility] Hepatic Function Panel (LFT) on 08-29-2019 Albumin [Mass/Vol] 3.8 g/dL 3.2 - 5.2 g/dL [facility] ALP [Catalytic activity/Vol] 62 U/L 40 - 140 U/L [facility] ALT [Catalytic activity/Vol] 25 U/L 14 - 65 U/L [facility] AST [Catalytic activity/Vol] 21 U/L 0 - 45 U/L [facility] Bilirubin [Mass/Vol] 0.3 mg/dL 0 - 1.3 mg/dL [facility] Bilirubin.conjugate d [Mass/Vol] mg/dL 0 - 0.4 mg/dL [facility] Protein [Mass/Vol] 7.6 g/dL 6 - 8 g/dL [facility] alth Lipaseon 08-29-2019 Lipase [Catalytic activity/Vol] 102 U/L 73 - 393 U/L [facility] Otheron 08-29-2019 Extra Tube Hold for add-ons. [facility] Comment on above: Auto resulted. Interpretation and review of laboratory results Normal [facility] URINALYSISon 08-29-2019 Bacteria Auto Ql (U) None Seen None Seen /hpf [facility] Bilirubin Ql (U) Negative Negative [facility] th Clarity Refractometry automated (U) Clear Clear [...] Calcium mass conc 9.6 mg/dL Normal 8.2-10.2 [facility] Comment on above: Performed By: #### C BC, ETOH, CMP #### [facility] [address] Chloride molar conc 103 mmol/L Normal 95-114 [facility] Comment on above: Performed By: #### C BC, ETOH, CMP #### [facility] [address] CO2 molar conc 24.1 mmol/L Normal 22.0-30.0 [facility] Comment on above: Performed By: #### C BC, ETOH, CMP #### [facility] [address] Creatinine mass conc 127.7699670240 mg/dL Normal [facility] Comment on above: Result Comment: PERF ORMED BY: [place] [address] PATHOLOGIST [employer]SE [employer]NAGER CLAUDIA BAUER M.D. Performed By: #### C BC, ETOH, CMP #### [address] Creatinine mass conc 0.63 mg/dL Normal 0.44-1.03 [facility] Comment on above: Performed By: #### C BC, ETOH, CMP #### [address] Estimated GFR ( Khloe > 60 [facility] Comment on above: Result Comment: GFR estimated reference range: According to KDOQI guidelines, <60 ml/min/1.73m2 is sufficient to diagnose a patient with chronic kidney disease. Performed By: #### C BC, ETOH, CMP #### [place] [address] [place] Estimated GFR (Non- Am > 60 Normal [facility] Comment on above: Performed By: #### C BC, ETOH, CMP #### [facility] [address] [place] [address] [place] Glucose mass conc 91 mg/dL Normal 70-100 [facility] Comment on above: Result Comment: [place] om Glucose Reference Range is dependent on time and content of last meal. Glucose of more than 200 mg/dL in a nonstressed, ambulatory subject supports the diagnosis of Diabetes Mellitus. ADA recommended reference range Performed By: #### C BC, ETOH, CMP #### [facility] [address] Potassium molar conc 3.9 mmol/L Normal 3.5-5.1 [facility] Comment on above: Performed By: #### C BC, ETOH, CMP #### [facility] [address] Sodium molar conc 135 mmol/L Low 136-146 [facility] Comment on above: Performed By: #### C BC, ETOH, CMP #### [facility] [address] Urea nitrogen mass conc 4 mg/dL Low 9-23 [facility] Comment on above: Performed By: #### C BC, ETOH, CMP #### [address] Hepatic Panelon 10-10-2018 Albumin mass conc 3.5 g/dL Normal 3.2-5.5 [facility] Comment on above: Performed By: #### H STEVE BMP #### [address] Albumin/Globulin mass ratio 1.3 {ratio} Normal [facility] Comment on above: Performed By: #### H STEVE BMP #### [address] ALP enzyme act/vol 72 U/L Normal 32-[address] [facility] Comment on above: Performed By: #### H STEVE BMP #### [facility] [address] [place] [address] ALT enzyme act/vol 91 U/L High 10-[address] [facility] Comment on above: Performed By: #### H EPACLARI, BMP #### [facility] [address] [place] [address] AST enzyme act/vol 112 U/L High 10-[address] [facility] Comment on above: Performed By: #### H EPACLARI BMP #### [facility] [address] [place] [address] Bilirubin mass conc 0.5 mg/dL Normal 0.3-1.2 [facility] Comment on above: Performed By: #### H STEVE BMP #### [facility] [address] [place] [address] Bilirubin,Indirect 0.3 mg/dL Normal [facility] Comment on above: Performed By: #### H STEVE, BMP #### [facility] [address] [place] [address] Bilirubin.direct mass conc 0.2 mg/dL Normal 0.0-0.4 [facility] Comment on above: Performed By: #### H STEVE, BMP #### [address] Globulin mass conc (S) 2.6 g/dL Normal [facility] Comment on above: Performed By: #### H STEVE, BMP #### [address] Protein mass conc 6.1 g/dL Normal 6.1-7.9 [facility] Comment on above: Performed By: #### H STEVE BMP #### [address] Basic Metabolic Panelon 09-26 Calcium mass conc 9.1 mg/dL Normal 8.2-10.2 [facility] Comment on above: Performed By: #### H STEVE BMP #### [address] Chloride molar conc 108 mmol/L Normal 95-114 [facility] Comment on above: Performed By: #### H STEVE, BMP #### [address] CO2 molar conc 22.8 mmol/L Normal 22.0-30.0 [facility] Comment on above: Performed By: #### H STEVE BMP #### [address] Creatinine mass conc 0.53 mg/dL Normal 0.44-1.03 [facility] Comment on above: Performed By: #### H STEVE BMP #### [address] Creatinine mass conc 167.8287152227 mg/dL Normal [facility] Comment on above: Result Comment: PERF ORMED BY: [place] [address] PATHOLOGIST [employer]SE MANAGER CLAUDIA BAUER M.D. Performed By: #### H STEVE BMP #### [address] Estimated GFR ( Khloe > 60 Normal [facility] Comment on above: Result Comment: GFR estimated reference range: According to KDOQI guidelines, <60 ml/min/1.73m2 is sufficient to diagnose a patient with chronic kidney disease. Performed By: #### H STEEV BMP #### [address] Estimated GFR (Non- Am > 60 Normal [facility] Comment on above: Performed By: #### H STEVE BMP #### [place] [address] [place] Glucose mass conc 101 mg/dL High 70-100 [facility] Comment on above: Result Comment: [place] Glucose Reference Range is dependent on time and content of last meal. Glucose of more than 200 mg/dL in a nonstressed, ambulatory subject supports the diagnosis of Diabetes Mellitus. ADA recommended reference range Performed By: #### H STEVE BMP #### [place] [address] [place] Potassium molar conc 3.2 mmol/L Low 3.5-5.1 [facility] Comment on above: Performed By: #### H STEVE BMP #### [place] [address] [place] Sodium molar conc 137 mmol/L Normal 136-146 [facility] Comment on above: Performed By: #### H STEVE BMP #### [place] [address] [place] Urea nitrogen mass conc 3 mg/dL Low 9-23 [facility] Comment on above: Performed By: #### H STEVE BMP #### [facility] [address] [place] [address] Hepatic Panelon 10-09-2018 Albumin mass conc 3.2 g/dL Normal 3.2-5.5 [facility] Comment on above: Performed By: #### H STEVE BMP #### [address] Albumin/Globulin mass ratio 1.2 {ratio} Normal [facility] Comment on above: Performed By: #### H STEVE BMP #### [address] ALP enzyme act/vol 66 U/L Normal 32-[address] [facility] Comment on above: Performed By: #### H STEVE BMP #### [address] ALT enzyme act/vol 89 U/L High 10-[address] [facility] Comment on above: Performed By: #### H STEVE BMP #### [address] AST enzyme act/vol 156 U/L High 10-[address] [facility] Comment on above: Performed By: #### H STEVE BMP #### [address] Bilirubin mass conc 0.5 mg/dL Normal 0.3-1.2 [facility] Comment on above: Performed By: #### H STEVE BMP #### [place] [address] [place] Bilirubin,Indirect 0.3 mg/dL Normal [facility] Comment on above: Performed By: #### H STEVE BMP #### [address] Bilirubin.direct mass conc 0.2 mg/dL Normal 0.0-0.4 [facility] Comment on above: Performed By: #### H STEVE BMP #### [address] Globulin mass conc (S) 2.6 g/dL Normal [facility] Comment on above: Performed By: #### H EPATIC, BMP #### [address] Protein mass conc 5.8 g/dL Low 6.1-7.9 [facility] Comment on above: Performed By: #### H EPATIC, BMP #### [address] Basic Metabolic Panelon 09-26 Calcium mass conc 9.2 mg/dL Normal 8.2-10.2 [facility] Comment on above: Performed By: #### H EPATIC, BMP, MG, [id number] #### [address] Chloride molar conc 105 mmol/L Normal 95-114 [facility] Comment on above: Performed By: #### H EPATIC, BMP, MG, [id number] #### [address] CO2 molar conc 24.1 mmol/L Normal 22.0-30.0 [facility] Comment on above: Performed By: #### H EPATIC, BMP, MG, [id number] #### [address] Creatinine mass conc 0.54 mg/dL Normal 0.44-1.03 [facility] Comment on above: Performed By: #### H EPATIC, BMP, MG, [id number] #### [address] Creatinine mass conc 163.8437231196 mg/dL [facility] Comment on above: Performed By: #### H EPATIC, BMP, MG, [id number] #### [address] Estimated GFR ( Khloe > 60 Normal [facility] Comment on above: Result Comment: GFR estimated reference range: According to KDOQI guidelines, <60 ml/min/1.73m2 is sufficient to diagnose a patient with chronic kidney disease. Performed By: #### H EPATIC, BMP, MG, [id number] #### [facility] [address] Estimated GFR (Non- Am > 60 Normal [facility] Comment on above: Performed By: #### H EPATIC, BMP, MG, [id number] #### [facility] [address] Glucose mass conc 68 mg/dL Low 70-100 [facility] Comment on above: Result Comment: [place] Glucose Reference Range is dependent on time and content of last meal. Glucose of more than 200 mg/dL in a nonstressed, ambulatory subject supports the diagnosis of Diabetes Mellitus. ADA recommended reference range Performed By: #### H EPATIC, BMP, MG, [id number] #### [address] Potassium molar conc 3.6 mmol/L Normal 3.5-5.1 [facility] Comment on above: Performed By: #### H EPATIC, BMP, MG, [id number] #### [address] Sodium molar conc 137 mmol/L Normal 136-146 [facility] Comment on above: Performed By: #### H EPATIC, BMP, MG, [id number] #### [address] Urea nitrogen mass conc 4 mg/dL Low 9-23 [facility] Comment on above: Performed By: #### H EPATIC, BMP, MG, [id number] #### [facility] [address] [place] [address] Complete Blood Count Auto Di ffon 10-08-2018 Basophils #/vol (Bld) 0.0 10*3/uL Normal 0.0-0.2 [facility] Comment on above: Result Comment: PERF ORMED BY: [place] [address] PATHOLOGIST [employer]SE MANAGER CLAUDIA BAUER M.D. Performed By: #### C BC, ETOH, CMP #### [facility] [address] [place] [address] [place] Basophils/100 WBC (Bld) 0.4 % Normal . [facility] Comment on above: Performed By: #### C BC, ETOH, CMP #### [facility] [address] [place] [address] [place] Eosinophils #/vol (Bld) 0.0 10*3/uL Normal 0.0-0.45 [facility] Comment on above: Performed By: #### C BC, ETOH, CMP #### [facility] [address] [place] [address] [place] Eosinophils/100 WBC (Bld) 0.4 % Normal . [facility] Comment on above: Performed By: #### C BC, ETOH, CMP #### [address] [address] Erythrocyte distribution width Ratio (RBC) 17.0 % High 11.9-15.3 [facility] Comment on above: Performed By: #### C BC, ETOH, CMP #### [address] Hematocrit Volume Fraction (Bld) 40.2 % Normal 34.0-46.4 [facility] Comment on above: Performed By: #### C BC, ETOH, CMP #### [address] Hemoglobin mass conc (Bld) 13.6 g/dL Normal 11.8-15.4 [facility] Comment on above: Performed By: #### C BC, ETOH, CMP #### [place] [address] [place] Lymphocytes #/vol (Bld) 1.2 10*3/uL Normal 1.00-4.8 [facility] Comment on above: Performed By: #### C BC, ETOH, CMP #### [place] [address] [place] Lymphocytes/100 WBC (Bld) 33.3 % Normal . [facility] Comment on above: Performed By: #### C BC, ETOH, CMP #### [address] [place] [address] [place] MCH Entitic mass (RBC) 33.8 g/dL Normal 32.0-35.0 [facility] Comment on above: Performed By: #### C BC, ETOH, CMP #### [address] MCH Entitic mass (RBC) 31.8 pg Normal 24.7-34.3 [facility] Comment on above: Performed By: #### C BC, ETOH, CMP #### [address] MCV Entitic volume (RBC) 94.1 fL Normal 80-100 [facility] Comment on above: Performed By: #### C BC, ETOH, CMP #### [address] Monocytes #/vol (Bld) 0.3 10*3/uL Normal 0.0-0.8 [facility] Comment on above: Performed By: #### C BC, ETOH, CMP #### [address] Monocytes/100 WBC (Bld) 6.8 % Normal . [facility] Comment on above: Performed By: #### C BC, ETOH, CMP #### [address] Neutrophils #/vol (Bld) 2.2 10*3/uL Normal 1.8-7.7 [facility] Comment on above: Performed By: #### C BC, ETOH, CMP #### [address] Neutrophils/100 WBC (Bld) 59.1 % Normal . [facility] Comment on above: Performed By: #### C BC, ETOH, CMP #### [address] Nucleated RBC/100 WBC Ratio (Bld) 0.1 % Normal 0-0.5 [facility] Comment on above: Performed By: #### C BC, ETOH, CMP #### [address] Platelet mean volume Entitic volume (Bld) 9.3 fL Normal 6.3-10.7 [facility] Comment on above: Performed By: #### C BC, ETOH, CMP #### [facility] [address] Platelets #/vol (Bld) 52 10*3/uL Low 150-450 [facility] Comment on above: Performed By: #### C BC, ETOH, CMP #### [address] RBC #/vol (Bld) 4.27 10*6/uL Normal 3.60-5.00 [facility] Comment on above: Performed By: #### C BC, ETOH, CMP #### [address] WBC #/vol (Bld) 3.7 10*3/uL Low 4.5-11.0 [facility] Comment on above: Performed By: #### C BC, ETOH, CMP #### [address] Comprehensive Metabolic Pane danitza 10-08-2018 Albumin mass conc 4.4 g/dL Normal 3.2-5.5 [facility] Comment on above: Performed By: #### C BC, ETOH, CMP #### [address] Albumin/Globulin mass ratio 1.6 {ratio} Normal [facility] Comment on above: Performed By: #### C BC, ETOH, CMP #### [address] ALP enzyme act/vol 81 U/L Normal 32-[address] [facility] Comment on above: Performed By: #### C BC, ETOH, CMP #### [address] ALT enzyme act/vol 76 U/L High 10-[address] [facility] Comment on above: Performed By: #### C BC, ETOH, CMP #### [address] [address] [place] AST enzyme act/vol 97 U/L High 10-[address] [facility] Comment on above: Performed By: #### C BC, ETOH, CMP #### [facility] [address] Bilirubin mass conc 0.7 mg/dL Normal 0.3-1.2 [facility] Comment on above: Performed By: #### C BC, ETOH, CMP #### [facility] [address] Calcium mass conc 10.3 mg/dL High 8.2-10.2 [facility] Comment on above: Performed By: #### C BC, ETOH, CMP #### [address] Chloride molar conc 104 mmol/L Normal 95-114 [facility] Comment on above: Performed By: #### C BC, ETOH, CMP #### [facility] [address] [place] [address] CO2 molar conc 25.6 mmol/L Normal 22.0-30.0 [facility] Comment on above: Performed By: #### C BC, ETOH, CMP #### [facility] [address] [place] [address] Creatinine mass conc 0.62 mg/dL Normal 0.44-1.03 [facility] Comment on above: Performed By: #### C BC, ETOH, CMP #### [facility] [address] [place] [address] [place] Creatinine mass conc 128.8067452880 mg/dL Normal [facility] Comment on above: Result Comment: PERF ORMED BY: [place] [address] PATHOLOGIST APARTMENT HOUSE MANAGER CLAUDIA BAUER M.D. Performed By: #### C BC, ETOH, CMP #### [place] [address] [place] Estimated GFR ( Khloe > 60 Normal [facility] Comment on above: Result Comment: GFR estimated reference range: According to KDOQI guidelines, <60 ml/min/1.73m2 is sufficient to diagnose a patient with chronic kidney disease. Performed By: #### C BC, ETOH, CMP #### [facility] [address] Estimated GFR (Non- Am > 60 Normal [facility] Comment on above: Performed By: #### C BC, ETOH, CMP #### [facility] [address] Globulin mass conc (S) 2.8 g/dL Normal [facility] Comment on above: Performed By: #### C BC, ETOH, CMP #### [address] Glucose mass conc 95 mg/dL Normal 70-100 [facility] Comment on above: Result Comment: [place] Glucose Reference Range is dependent on time and content of last meal. Glucose of more than 200 mg/dL in a nonstressed, ambulatory subject supports the diagnosis of Diabetes Mellitus. ADA recommended reference range Performed By: #### C BC, ETOH, CMP #### [address] Potassium molar conc 4.1 mmol/L Normal 3.5-5.1 [facility] Comment on above: Performed By: #### C BC, ETOH, CMP #### [address] Protein mass conc 7.2 g/dL Normal 6.1-7.9 [facility] Comment on above: Performed By: #### C BC, ETOH, CMP #### [address] Sodium molar conc 140 mmol/L Normal 136-146 [facility] Comment on above: Performed By: #### C BC, ETOH, CMP #### [place] [address] [place] Urea nitrogen mass conc 4 mg/dL Low 9-23 [facility] Comment on above: Performed By: #### C BC, ETOH, CMP #### [place] [address] [place] Ethyl Alcohol Profileon 09-26 Ethanol mass conc mg/dL Normal [facility] Comment on above: Performed By: #### C BC, ETOH, CMP #### [facility] [address] Percent Ethanol Test not performed Normal [facility] Comment on above: Result Comment: PERF ORMED BY: [place] [address] PATHOLOGIST APARTMENT HOUSE MANAGER CLAUDIA BAUER M.D. Performed By: #### C BC, ETOH, CMP #### [facility] [address] [place] [address] Hepatic Panelon 10-08-2018 Albumin mass conc 3.7 g/dL Normal 3.2-5.5 [facility] Comment on above: Performed By: #### H EPATIC, BMP, MG, [id number] #### [facility] [address] [place] [address] Albumin/Globulin mass ratio 1.5 {ratio} Normal [facility] Comment on above: Performed By: #### H EPATIC, BMP, MG, [id number] #### [facility] [address] [place] [address] ALP enzyme act/vol 70 U/L Normal 32-[address] [facility] Comment on above: Performed By: #### H EPATIC, BMP, MG, [id number] #### [facility] [address] [place] [address] ALT enzyme act/vol 77 U/L High 10-[address] [facility] Comment on above: Performed By: #### H EPATIC, BMP, MG, [id number] #### [facility] [address] [place] [address] AST enzyme act/vol 142 U/L High 10-[address] [facility] Comment on above: Performed By: #### H EPATIC, BMP, MG, [id number] #### [facility] [address] [place] [address] Bilirubin mass conc 0.9 mg/dL Normal 0.3-1.2 [facility] Comment on above: Performed By: #### H EPATIC, BMP, MG, [id number] #### [facility] [address] [place] [address] Bilirubin,Indirect 0.7 mg/dL Normal [facility] Comment on above: Performed By: #### H EPATIC, BMP, MG, [id number] #### [facility] [address] [place] [address] Bilirubin.direct mass conc 0.2 mg/dL Normal 0.0-0.4 [facility] Comment on above: Performed By: #### H EPATIC, BMP, MG, [id number] #### [address] Globulin mass conc (S) 2.5 g/dL Normal [facility] Comment on above: Performed By: #### H EPATIC, BMP, MG, [id number] #### [address] Protein mass conc 6.2 g/dL Normal 6.1-7.9 [facility] Comment on above: Performed By: #### H EPATIC, BMP, MG, [id number] #### [address] Magnesiumon 10-08-2018 Magnesium mass conc 1.7 mg/dL Normal 1.6-2.6 [facility] Comment on above: Performed By: #### H EPATIC, BMP, MG, [id number] #### [facility] [address] [place] [address] Vit. B12/Folate Profileon Cobalamin (Vitamin B12) mass conc 337 pg/mL Normal 180-914 [facility] Comment on above: Performed By: #### H EPATIC, BMP, MG, [id number] #### [facility] [address] [place] [address] Folate 8.9 ng/mL Normal [facility] Comment on above: Result Comment: Shea te reference range: >5.9 ng/ml The WHO technical consultation on folate and vitamin b12 deficiencies has determined that folate concentrations less than 4 ng/ml are considered deficient. PERFORMED BY: [facility] [address] [place] [address] PATHOLOGIST APARTMENT HOUSE MANAGER CLAUDIA BAUER M.D. Performed By: #### H EPATIC, BMP, MG, [id number] #### [address] [address] [facility] Vital Signs Date Time Vital Sign Value Performing Clinician Facility 04-26-2024 15:45-0400 Body height 162.6 cm Lizzeth Cortez PA Work Phone: [facility] 04-26-2024 15:45-0400 Body mass index (BMI) [Ratio] 29.63 kg/m2 Lizzeth Cortez PA Work Phone: [facility] 04-26-2024 15:45-0400 Body temperature 97.9 [degF] Lizzeth Cortez PA Work Phone: [facility] 04-26-2024 15:45-0400 Body weight 78.29 kg Lizzeth Cortez PA Work Phone: [facility] 04-26-2024 15:45-0400 Diastolic blood pressure 70 mm[Hg] Lizzeth Cortez PA Work Phone: [facility] 04-26-2024 15:45-0400 Heart rate 108 /min Lizzeth Cortez PA Work Phone: [facility] 04-26-2024 15:45-0400 SaO2% (BldA) [Mass fraction] 96 % Lizzeth Cortez PA Work Phone: [facility] 04-26-2024 15:45-0400 Systolic blood pressure 112 mm[Hg] Lizzeth Cortez PA Work Phone: [facility] 04-13-2024 16:13-0400 Body height 162.6 cm Adin Guzman DPM Work Phone: [facility] 04-13-2024 16:13-0400 Body mass index (BMI) [Ratio] 29.35 kg/m2 Adin Guzman DPM Work Phone: [facility] 04-13-2024 16:13-0400 Body weight 77.56 kg Adin Guzman DPM Work Phone: [facility] 04-13-2024 16:13-0400 Diastolic blood pressure 80 mm[Hg] Adin Guzman DPM Work Phone: [facility] 04-13-2024 16:13-0400 Heart rate 85 /min Adin Guzman DPM Work Phone: [facility] 04-13-2024 16:13-0400 Systolic blood pressure 126 mm[Hg] Adin Guzman DPM Work Phone: [facility] 07-20-2023 14:04-0500 Diastolic blood pressure 76 mm[Hg] Ann Viadl MD Work Phone: [facility] 07-20-2023 14:04-0500 Heart rate 89 /min Ann Vidal MD Work Phone: [facility] 07-20-2023 14:04-0500 Systolic blood pressure 130 mm[Hg] Ann Vidal MD Work Phone: [facility] 05-12-2023 13:48-0500 Respiratory rate 16 /min Neeraj TAMMY [facility] [place] 06-05-2020 12:47-0500 BMI (Body Mass Index) 30.04 kg/m2 [facility] 06-05-2020 12:47-0500 Body Temperature 98.8 [degF] [facility] 06-05-2020 12:47-0500 Body weight 79.38 kg [facility] 06-05-2020 12:47-0500 BP Diastolic 79 mm[Hg] [facility] 06-05-2020 12:47-0500 BP Systolic 114 mm[Hg] [facility] 06-05-2020 12:47-0500 Height 162.6 cm [facility] 06-05-2020 12:47-0500 Pulse (Heart Rate) 118 /min Radha Li [facility] 06-05-2020 12:47-0500 Pulse Oximetry 95 % Radha Li [facility] 06-05-2020 12:47-0500 Respiratory Rate 14 /min Radha Li [facility] 05-21-2020 18:13-0500 BMI (Body Mass Index) 30.04 kg/m2 [facility] 05-21-2020 18:13-0500 Body Temperature 97.9 [degF] [facility] 05-21-2020 18:13-0500 Body weight 79.38 kg [facility] 05-21-2020 18:13-0500 BP Diastolic 88 mm[Hg] [facility] 05-21-2020 18:13-0500 BP Systolic 122 mm[Hg] [facility] 05-21-2020 18:13-0500 Height 162.6 cm [facility] 05-21-2020 18:13-0500 Pulse (Heart Rate) 109 /min [facility] 05-21-2020 18:13-0500 Pulse Oximetry 97 % [facility] 05-21-2020 18:13-0500 Respiratory Rate 18 /min [facility] 10-11-2019 14:50-0400 BMI (Body Mass Index) 27.12 kg/m2 Radha Li [facility] 10-11-2019 14:50-0400 Body Temperature 97.5 [degF] [facility] 10-11-2019 14:50-0400 Body weight 71.67 kg [facility] 10-11-2019 14:50-0400 BP Diastolic 70 mm[Hg] [facility]-11-[facility] 14:50-0400 BP Systolic 126 mm[Hg] [facility] 10-11-2019 14:50-0400 Height 162.6 cm [facility] 10-11-2019 14:50-0400 Pulse (Heart Rate) 91 /min [facility] 10-11-2019 14:50-0400 Pulse Oximetry 96 % Radha Laz[facility] 10-11-2019 14:50-0400 Respiratory Rate 16 /min Radha Li [facility] 10-09-2019 08:38-0400 BMI (Body Mass Index) 27.12 kg/m2 Ollie Feng [facility] 10-09-2019 08:38-0400 Body Temperature 98.1 [degF] Ollie Feng [facility] 10-09-2019 08:38-0400 Body weight 71.67 kg Ollie Feng [facility] 10-09-2019 08:38-0400 BP Diastolic 75 mm[Hg] Ollie Feng [facility] 10-09-2019 08:38-0400 BP Systolic 112 mm[Hg] Ollie Feng [facility] 10-09-2019 08:38-0400 Height 162.6 cm Ollie Feng [facility] 10-09-2019 08:38-0400 Pulse (Heart Rate) 89 /min Ollie Feng [facility] 10-09-2019 08:38-0400 Pulse Oximetry 97 % Ollie Feng [facility] 10-09-2019 08:38-0400 Respiratory Rate 16 /min Ollie Feng [facility] 10-07-2019 13:51-0400 BP Diastolic 83 mm[Hg] Gwendolynjewel Tee [facility] 10-07-2019 13:51-0400 BP Systolic 110 mm[Hg] [facility] 10-07-2019 13:51-0400 Pulse (Heart Rate) 76 /min Gwendolyn [facility] 10-07-2019 13:51-0400 Pulse Oximetry 98 % Gwendolynjewel Tee [facility] 10-07-2019 13:51-0400 Respiratory Rate 16 /min [facility] 10-07-2019 12:02-0400 Body Temperature 97.5 [degF] Gwendolynjewel Tee [facility] 10-07-2019 11:57-0400 BMI (Body Mass Index) 27.12 kg/m2 Gwendolynjewel Tee [facility] 10-07-2019 11:57-0400 Body weight 71.67 kg Gwendolynjewel [...] minutes Lizzeth Cortez PA Work Phone: [facility] Comment on above: Left breast abscess (Primary Dx) Start: 04-26-2024 End: 04-26-2024 ambulatory LIZZETH CORTZE Not Available Start: 04-26-2024 End: 04-26-2024 Telephone encounter Darnell Melody Nowak DO Work Phone: [facility] Start: 04-13-2024 End: 04-13-2024 [...] Start: 07-20-2023 End: 07-20-2023 ambulatory ANN VIDAL [facility] Start: 07-20-2023 End: 07-20-2023 Office outpatient new 45 minutes Ann Vidal MD Work Phone: [facility] Comment on above: Abscess [...] End: 05-19-2023 ambulatory Neeraj R NILL Facility: [place] Start: 05-18-2023 End: 05-18-2023 Patient encounter procedure Neeraj R NILL [facility] [place] Start: 05-12-2023 End: 05-13-2023 ambulatory Neeraj R NILL Facility: [place] Start: 05-12-2023 End: 05-12-2023 Patient encounter procedure Neeraj R NILL [facility] [place] Start: 05-03-2023 ambulatory Neeraj NILL Facility: [facility] Start: 10-09-2021 End: 10-12-2021 Evaluation and management of inpatient DR LARRY TORRES Facility:[facility] Start: 08-30-2021 End: 08-30-[address] GOLD LAY Facility:[facility] Start: 07-04-2021 End: 07-04-[address] OSMIN MCGEE Facility:[facility] Start: 06-04-2021 End: 06-04-2021 ambulatory SILVA SARMIENTO Facility:[facility] Start: 04-26-2021 End: 04-26-[address] BOONE HOLT Facility:[facility] Start: 10-09-2020 Patient encounter procedure PHYSICIAN SHAHNAZ [facility] Start: 06-12-2020 End: 06-12-2020 Patient encounter procedure HESHAM BARNES [facility] Start: 06-05-2020 End: 06-05-2020 Emergency department patient visit PHYSICIAN [facility] Start: 06-05-2020 End: 06-05-2020 Emergency department patient visit Radha Li Work Phone: [facility] Comment on above: COVID-19 virus infec tion (Primary Dx); Nonintractable headache, unspecified chronicity pattern, unspecified headache type; Myalgia; Fatigue, unspecified type Start: 05-21-2020 End: 05-21-2020 Emergency department patient visit PHYSICIAN [facility] Start: 05-21-2020 End: 05-21-2020 Emergency department patient visit Onofre Rowell Work Phone: [facility] Comment on above: COVID-19 virus infec tion (Primary Dx) Start: 2020 End: 2020 Documentation procedure Oh Wesley [facility] Comment on above: No show inital appoi ntment 01/29/2020 Start: 10-11-2019 End: 10-11-2019 Emergency department patient visit PHYSICIAN [facility] Start: 10-11-2019 End: 10-11-2019 Emergency department patient visit Radha Li Work Phone: [facility] Comment on above: Wound check, abscess (Primary Dx); Dressing change Start: 10-09-2019 End: 10-09-2019 Emergency department patient visit PHYSICIAN [facility] Start: 10-09-2019 End: 10-09-2019 Emergency department patient visit Ollie Feng Work Phone: [facility] Comment on above: Encounter for rechec k of abscess following incision and drainage (Primary Dx) Start: 10-07-2019 End: 10-07-2019 Emergency department patient visit PHYSICIAN NO [facility] Start: 10-07-2019 End: 10-07-2019 Emergency department patient visit Gwendolyn Tee Work Phone: [facility] Comment on above: Abscess of left [address] (Primary Dx) Start: 08-29-2019 End: 08-29-2019 Emergency department patient visit BOONE RESENDIZ [facility] Start: 08-29-2019 End: 08-29-2019 Emergency department patient visit Boone Resendiz Work Phone: [facility] Comment on above: Nausea and vomiting, intractability of vomiting not specified, unspecified vomiting type (Primary Dx); Epigastric pain; Alcohol abuse Start: 10-08-2018 End: 10-10-2018 Evaluation and management of inpatient Jericho Barreto Facility:[facility] Procedures Date Procedure Procedure Detail Performing [...] Td Vaccines (2 - Td or Tdap) [facility] Start: 05-12-2024 End: 05-12-2024 Patient encounter procedure 05/12/2024 11:00 AM EST Office Visit [facility] [address] [place] [phone] Lizzeth Cortez PA [address] [place] [address] [facility] Start: 04-28-2024 End: 04-28-2024 Patient encounter procedure 04/28/2024 3:40 PM EDT Office Visit [facility] [address] [place] [phone] Lizzeth Cortez PA [address] [place] [address] [facility] Start: 02-27-2024 Influenza vaccination Influenza Vacc ine (#1) [facility] Start: 02-26-2023 Influenza vaccination Influenza Vacc ine [facility] Start: 06-12-2020 End: 06-12-2020 Telemedicine 06/12/2020 Telemedicine Primary Care Willard Hesham Perales, DIRECTOR OF EVENT SALES [address] [place] [address] [phone] [facility] Start: 05-22-2020 End: 05-22-2020 Office Visit 05/22/2020 Office Visit Obstetrics and Gynecology Franklyn Gabriel MD [facility] [place] [address] [phone] [facility] Start: 02-27-2020 Influenza vaccinatio n given Sequential Influenza Vaccine (#1) [facility] Start: 02-26-2019 Influenza vaccinatio n given Sequential Influenza Vaccine (#1) [facility] Start: 2017 Screening for malign ant neoplasm of cervix [facility] Start: 01-31-2008 Screening for malign ant neoplasm of cervix Pap Smear [facility] Start: 2005 Adult BMI Screening Adult BMI Screen ing [facility] Start: 2005 Hepatitis C antibody , confirmatory test Hepatitis C Screening [facility] Start: 2002 HIV screening HIV Screening [facility] Start: 1999 Adolescent depressio n screening assessment [facility] Start: 1999 Tobacco Screening Tobacco Screening [facility] Start: 1990 History and physical examination, [...] unspecified formulation Ann Vidal MD Work Phone: [employer] NEGATED: Highlighted row has not occurred!05-12-2023 influenza virus vaccine, unspecified formulation Neeraj MUNOZ [facility] [place] Payers Date Payer Category Payer Private Health Insurance [employer] [id number] 2023 Unknown [employer] [place] [employer] [id number] 2023-Present [phone] [address] [place] [address] [id number] 2023 Unknown [id number] 2019 Private Health Insurance MIAN Mark [employer] CHOICE FUND-ANY CHOICE FUND [id number] 2019-Present [id number] 2019 Private Health Insurance [id number] 2018 Medicaid [employer] MEDICAID [employer] MED[employer] [id number] 2018-Present [id number] 2018 Private Health Insurance xxx [id number] 2018 Self-pay 2018 Unknown [id number] 2015 Unknown [id number] 1987 Unknown [id number] 2.16.840.1.747915.3.579.2. 903 1987 Unknown [id number] 2.16.840.1.540814.3.579.2. 903 1987 Unknown [id number] 2.16.840.1.867065.3.579.2. 903 1987 Unknown [id number] 2.16.840.1.373311.3.579.2. 903 1987 Unknown [id number] 2.16.840.1.448109.3.579.2. 903 1987 Unknown [id number] 2.16.840.1.130309.3.579.2. 903 1987 Unknown [id number] 2.16.840.1.525596.3.579.2. 903 1987 Unknown [id number] 2.16.840.1.801346.3.579.2. 903 1987 Unknown [id number] 2.16.840.1.985093.3.579.2. 593 1987 Unknown [id number] 2.16.840.1.114188.3.579.2. 593 1987 Unknown [id number] 2.16.840.1.376023.3.579.2. 593 1987 Unknown [id number] 2.16.840.1.364412.3.579.2. 593 1987 Unknown [id number] 2.16.840.1.971649.3.579.2. 593 1987 Unknown [id number] 2.16.840.1.783232.3.579.2. 727 1987 Unknown [id number] 2.16.840.1.809486.3.579.2. 727 1987 Unknown [id number] 2.16.840.1.798224.3.579.2. 727 1987 Unknown [id number] 2.16840.1.271289.3.579.2. 727 1987 Unknown [id number] 2.16.840.1.712313.3.579.2. 727 1987 Unknown [id number] 2.16.840.1.403744.3.579.2. 1286 1987 Unknown [id number] 2.16.840.1.961180.3.579.2. 9 1987 Unknown [id number] 2.16840.1.055951.3.579.2. 1259 1987 Unknown [id number] 2.16.840.1.126965.3.579.2. 1259 1987 Unknown [id number] 2.16.840.1.838150.3.579.2. 1258 1987 Unknown [id number] 2.16.840.1.472496.3.579.2. 1259 1987 Unknown [id number] 2.16.840.1.009897.3.579.2. 1259 1987 Unknown [id number] 1985 Unknown [id number] 1957 Private Health Insurance [id number] 1957 Unknown [id number] Unknown [id number] Social History Date Type Detail Facility Start: 06-28-2000 End: 03-23-2024 Tobacco smoking status CTIS Current every day smoker [facility] Start: 06-28-2000 History of tobacco use Cigarette Smo ker [facility] Start: 08-29-2019 End: 06-04-2023 Cigarettes smoked current (pack per day) - Reported [facility] Start: 08-29-2019 End: 04-26-2024 Alcohol intake Current drinker of alcohol (finding) [facility] Start: 08-29-2019 Alcohol Comment daily [facility] Start: 1985 Sex Assigned At Not on file [facility] Start: 10-07-2019 Alcohol Comment socially [facility] Exposure to SARS-CoV -2 (event) Unable to assess [facility] Start: 05-21-2020 End: 03-23-2024 Tobacco use and exposure Never used [facility] Exposure to SARS-CoV -2 (event) Yes [facility] Start: 05-12-2023 Tobacco smoking status Heavy t obacco smoker (finding) [facility] Tobacco smoking status Never [facility] [place] Start: 01-04-2019 End: 06-04-2023 Sex Assigned At Female Rajendra Clark [facility] Tobacco smoking stat [facility] Tobacco smoking consumption unknown [facility] [...] m Physical Exam Exam conducted with a second steward present. Constitutional: General: She is not in [...] Pt verbalized understanding. documented in this encounter [facility] 04-26-2024 Telephone encounter Note Pt requesting an antibiotic and pain med for possible infection in lt breast. Its red and quarter in size above nipple started 2 days ago. DDM in [place]. She made appointment for Wednesday. She said if she can't make that she will go to ER. Please call ok to leave message [facility] 04-26-2024 Miscellaneous Notes Pt requesting an antibiotic and pain med for possible infection in lt breast. Its red and quarter in size above nipple started 2 days ago. DDM in [place]. She made appointment for Wednesday. She said if she can't make that she will go to ER. Please call ok to leave message documented in this encounter [facility] 04-13-2024 History of Presen t illness [...] min Stress: No Stress Concern Present (06/04/2023) [employer] [place] [employer] - Occupational Stress Questionnaire Feeling of Stress : Not at all Social Connections: Socially Integrated (06/04/2023) Social Connection and Isolation Panel [NHANES] Frequency of Communication with Friends and Family: More than three times a week Frequency of Social Gatherings with Friends and Family: Twice a week Attends Nondenominational Services: More than 4 times per year [...] Patient may continue with conservative treatments including [id number]-[id number] anti-inflammatories and other treatments suggested today. Patient may want to be scheduled for surgical intervention in the near future. Patient states she would like to have the right and left foot mass removed at the same time and ganglion cyst removal to left and right foot. Her primary care doctor is Dr. Imtiaz Aldridge and would like [place] for postoperative pain instructed to call has will schedule post call in the near future when she decides good timeframe to have surgical procedure Adin Guzamn DPM documented in this encounter [facility] 07-20-2023 History of Presen t illness [...] genetic testing? No Do you have Ashkenazi Pentecostal ancestry? No I reviewed notes from primary [...] for smoking cessation. documented in this encounter [facility] + Plan note Future Appointments Appointment Date:05/18/2023 01:00:00 PM Scheduled Provider:Neeraj MUNOZ MD Location:[facility] Appointment Type: Post Op 15 [facility] [place] Evaluation note Diagnosis Abscess of left breast- Primary Abscess of right breast Tobacco abuse Tobacco use disorder documented in this encounter [facility]* Diagnosis Ganglion cyst of right foot- Primary Mass of right foot Mass of left foot Plantar fasciitis Plantar fascial fibromatosis [facility] Diagnosis Left breast abscess- Primary [facility] Narrative No data available for this section General Surgery [facility] Discharge instructions No data available for this section General Surgery [facility] InstructionsNot on filedocumented in this encounter [facility] No data available for this section General Surgery [facility] Summary Purpose Family History No Family History [...] FoundDocuments on File Type Date Recorded Patient Consulting Hr Professional Expl anation Advance Directives and Livin g Will 08/29/2019 1:59 PM Documents on File Type Date Recorded Patient Consulting Hr Professional Expl anation Advance Directives and Livin g Will 10/07/2019 12:14 PM Documents on File Type Date Recorded Patient Consulting Hr Professional Expl anation Advance Directives and Livin g Will 10/09/2019 8:52 AM Documents on File Type Date Recorded Patient Consulting Hr Professional Expl anation Advance Directives and Livin g Will 10/11/2019 8:52 AM Documents on File Type Date Recorded Patient Consulting Hr Professional Expl anation Advance Directives and Livin g Will 05/21/2020 8:52 AM Documents on File Type Date Recorded Patient Consulting Hr Professional Expl anation Advance Directives and Livin g Will 06/05/2020 8:52 AM Discharge Instructions * Attachments The following attachments cannot be sent through Care Everywhere. * Abdominal Pain (Pakistani) * Nausea and Vomiting (Pakistani) documented in this encounter* Attachments The following attachments cannot be sent through Care Everywhere. * Abscess: Skin (Pakistani) documented in this encounter* Attachments The following attachments cannot be sent through Care Everywhere. * Abscess: Skin (Pakistani) documented in this encounter* Attachments The following attachments cannot be sent through Care Everywhere. * Abscess: Skin (Pakistani) documented in this encounter* Instructions* Ajay Duran PA-C - 05/21/2020 Stay home and away from other people. Rest, fluids, Tylenol. Return for difficulty breathing, uncontrolled fevers, or any other problems or concerns. You did test positive for COVID-19 today. * Attachments The following attachments cannot be sent through Care Everywhere. * COVID-19 SELF ISOLATION DISCHARGE INSTRUCTIONS * Coronavirus Disease (COVID-19): General Info (Pakistani) documented in this encounter* Attachments The following attachments cannot be sent through Care Everywhere. * Fatigue (Pakistani) * Coronavirus Disease (COVID-19): General Info (Pakistani) * COVID-19: Taking Care of Yourself If You Have It: Video (Pakistani) * Myalgia (Pakistani) documented in this encounter Assessments Diagnosis Nausea [...] and content) DATE CREATED AUTHOR 10/10/2018 [facility] DATE CREATED AUTHOR AUTHOR'S ORGANIZ ATION 06/13/2020 [facility] DATE CREATED AUTHOR AUTHOR'S ORGANIZ ATION 10/09/2020 [facility] DATE CREATED AUTHOR AUTHOR'S ORGANIZ ATION 12/17/2021 [facility] DATE CREATED AUTHOR AUTHOR'S ORGANIZ ATION 06/07/2023 [facility] DATE CREATED AUTHOR AUTHOR'S ORGANIZ ATION 07/23/2023 [facility] DATE CREATED AUTHOR AUTHOR'S ORGANIZ ATION 04/28/2024 [facility] dical Specialists EPIC Reason for Visit [...] of right breast Darnell Nowak DO [address] [place] [address] Ann Vidal MD [address] [facility] [address] [place] [address] Referral ID Status Reason Start Date Expiration Date V isits Requested Visits Authorized [id number] Pending Review 06/23/2023 06/22/2024 1 1 Reason [...] ED Notes (unrecognized secti on and content) [facility] ED Physician Note: NAME: Shannan Carter 34 y.o. CSN: [id number] PCP: Physician No Clinical Impression: 1. Nausea [...] for 10 days . Follow-up Information 1. [facility] - Primary Care Services. Why: Recheck of todays complaint [address] [facility] [address] 2. Miguel Sarkar III, MD. Specialties: General Surgery, Interventional Radiology, Breast Surgery Why: Recheck of todays complaint [address] [facility] [address] 3. [facility] Emergency Department. Specialty: Emergency Medicine Why: If symptoms worsen [address] [place] [id number] Contact information for after-discharge care Follow-up information [...] file Gets together: Not on file Attends jain service: Not on file Active member of [...] Abnormal; Notable for the following components: Specific [place] 1.002 (*) Blood, Urine Large (*) All [...] Procedure Abnormality Status --------- ------ CBC Auto Differential[[id number]] Abnormal Final result Please view results for these tests on the individual orders. CT Abdomen Pelvis With IV Contrast Only Final Result 1. Fairly diffuse colonic wall thickening that may reflect incomplete bowel distention and spasm versus a mild colitis. There is no bowel obstruction. The appendix is normal. 2. Hepatic steatosis. Workstation ID: [id number] Procedures: Procedures ED Course/ Medical Decision Making: [...] hypertension. . Ajay Duran PA-C ED Physician Coding Manager [facility] Emergency Department (Please note that portions of this note have been completed with a voice recognition software. Efforts were made to correct any errors, but occasionally words are mis-transcribed.) Ajay Duran PA-C 08/29/19 1511 Also reports that she went on an alcohol binge last weekend which flared it up. Pt reports Its my pancreas. States she is usually seen at [facility] and recently moved here, has a history of pancreatitis. documented in this encounter Associated Order(s): Incision/Drainage [facility] ED Physician Note: NAME: Shannan Carter 34 y.o. CSN: [id number] PCP: Physician No Chief Complaint: Abscess Clinical [...] or uses a tobacco product, I did crisis intervention counselor them on benefits and resources of [...] Take with food . Follow-up Information 1. [facility] - Primary Care Services. Why: for symptom reheck [address] [facility] [address] 2. [facility] Emergency Department. Specialty: Emergency Medicine Why: If symptoms worsen [address] [place] [address] Contact information for after-discharge care Follow-up information [...] of the left breast surrounding her area [place]. Patient reports associated drainage. Denies any fever, [...] or diabetic. History provided by: Patient interpreter used: No Abscess Associated symptoms: no [...] file Gets together: Not on file Attends jain service: Not on file Active member of [...] expedite correspondence this note was generated by [employer] voice recognition software. Some grammatical or spelling errors may occur using the system. ARI López, ENP-C ED Nurse Practitioner [facility] Emergency Department (Please note that portions of this note have been completed with a voice recognition software. Efforts were made to correct any errors, but occasionally words are mis-transcribed.) Maria Elena West CNP 10/07/19 1439 Patient states, I had one here before 2 or 3 years ago. Patient states, I have an abscess on my boob. documented in this encounter [facility] ED Physician Note: NAME: Shannan Carter 34 y.o. CSN: [id number] PCP: Physician No ED Course / Medical [...] file Gets together: Not on file Attends jain service: Not on file Active member of [...] Drainage from breat noted think and pus-like [facility] ED Physician Note: NAME: Shannan Carter 34 y.o. CSN: [id number] PCP: Physician No ED Course / Medical [...] does lift heavy boxes. Recommend follow-up with [facility] in a week for recheck. [...] file Gets together: Not on file Attends jain service: Not on file Active member of [...] hypertension. . This chart was documented with motionBEAT incation system. There may be spelling errors as a result. Colin Loaiza PA-C [facility] Emergency Department (Please note that portions [...] I came here. documented in this encounter [facility] ED Physician Note: NAME: Shannan Carter 35 y.o. CSN: [id number] PCP: Physician No Clinical Impression: 1. COVID-19 virus infection Disposition: Patient is being discharged to home Follow-up Information 1. [facility]. Why: Recheck of todays complaint [address] [facility] [address] [phone] 2. [facility] Emergency Department. Specialty: Emergency Medicine Why: If symptoms worsen [address] [place] [id number] Contact information for after-discharge care Follow-up information [...] file Gets together: Not on file Attends jain service: Not on file Active member of [...] at the following links: For Healthcare Providers: https://www.fda.gov/media/721097/download For Patients: https://www.fda.gov/media/872344/download No orders to display Procedures: Procedures ED [...] hypertension. . Ajay Duran PA-C ED Physician Coding Manager [facility] Emergency Department (Please note that portions of this note have been completed with a voice recognition software. Efforts were made to correct any errors, but occasionally words are mis-transcribed.) Ajay Duran PA-C 05/21/201903 Pt presents to ED with c/o cough and fatigue that started Wednesday. Pt states that she lives with someone who is positive for covid documented in this encounter [facility] ED Physician Note: NAME: Shannan Carter 35 y.o. CSN: [id number] PCP: Physician No Clinical Impression: 1. COVID-19 [...] printed (June 12 at 2 pm) [address] [place] [address] Contact information for after-discharge care Follow-up information [...] agreeable to Toradol IM, I spoke with director social service who arranged for an outpatient appointment with her urgently, neuro exam is nonfocal, she is making informed decision. I discussed with the patient supportive care, signs to return to ED, infectious/neuro warning signs, follow up with pcp; questions answered; patient understands and agrees with plan; . . If patient is currently a smoker or uses a tobacco product, I did crisis intervention counselor them on benefits and resources of [...] file Gets together: Not on file Attends jain service: Not on file Active member of [...] Procedures: Procedures Radha Li DO ED Physician [facility] Emergency Department Radha Li DO 06/05/20 [...] vomiting Boone Resendiz MD ED Attending Physician [facility] Emergency Department documented in this encounter ED [...] team informatio n (unrecognized section and content) Emb[employer] Machine Tender Relationship Specialty Start Date End Date Darnell Nowak DO [address] [place] [address] PCP - [facility] [employer] 03/28/23 06/27/99 Darnell Nowak DO [address] [place] [address] PCP - General Family Medicine 03/02/24 Embossing Machine Tender Relationship Specialty Start Date End Date Darnell Nowak DO [address] [place] [address] PCP - [facility] [employer] 03/28/23 06/27/99 Darnell Nowak DO [address] [place] [address] [facility] 03/02/24 Embossing Machine Tender Relationship Specialty Start Date End Date Darnell Nowak DO [address] [place] [address] PCP - [facility] 03/28/23 06/27/99 Darnell Nowak, DO [address] [place] [address] [facility]CP - [facility] 03/02/24 Embossing Machine Tender Relationship Specialty Start Date End Date Darnell Nowak, DO [address] [place] [address] [facility] - [facility] 03/28/23 06/27/99 Darnell Nowak, DO [address] [place] [address] PCP - [facility] 03/02/24 FOR RECORDS PERTAINING TO PATIENTS [...] BE BASED ON THE PRIMARY CLINICAL RECORDS. [employer] [facility]. provides no warranty or guarantee of the accuracy or completeness of information in this document.
--- NOTE | 2024-05-01 07:00 | US_ITS ---
Patient Name: WADE LOPEZ MR#: [id number] : 1985 Exam Date: 05/01/2024 Ordering Doctor: Shaikh Carolee Jaimes . RADIOLOGY REPORT PROCEDURE: US BREAST LT COMPLETE COMPARISON: None. INDICATIONS: breast cellulitis TECHNIQUE: Breast ultrasound was performed, with evaluation focusing only on specific areas of concern. FINDINGS: Left breast ultrasound demonstrates a heterogeneous avascular mass measuring 3.3 x 1.4 x 3.3 cm left retroareolar breast. In light of the patient's cellulitis I favor a focal breast abscess US/US breast LT complete Impression: 3.3 cm retroareolar left breast abscess PLEASE NOTE: A NORMAL ULTRASOUND EXAMINATION DOES NOT EXCLUDE THE POSSIBILITY OF BREAST CANCER. A CLINICALLY SUSPICIOUS PALPABLE LUMP SHOULD BE BIOPSIED. Dictated by: Gage Brownlee MD on 05/01/2024 at 08:57 Approved by: Gage Brownlee MD on 05/01/2024 at 09:02
[2024-05-01] MEDS: NICOTINE 21 MG PATCH.TD24 TD (08:14)
[2024-05-01 09:01] LABS: Amphetamine Screen Urine NEGATIVE (NEGATIVE); Barbiturates Screen Urine NEGATIVE (NEGATIVE); Benzodiazepines Screen Urine NEGATIVE (NEGATIVE); Buprenorphine Screen Urine NEGATIVE (NEGATIVE); Cannabinoid Screen Urine POSITIVE (NEGATIVE); Cocaine Screen Urine NEGATIVE (NEGATIVE); Methadone Screen Urine NEGATIVE (NEGATIVE); Methamphetamines Screen Urine NEGATIVE (NEGATIVE); Opiate Screen Urine POSITIVE (NEGATIVE); Oxycodone Screen Urine POSITIVE (NEGATIVE); Phencyclidine Screen Urine NEGATIVE (NEGATIVE); Tricyclic Antidepressant Urine NEGATIVE (NEGATIVE)
--- NOTE | 2024-05-01 09:44 | CM.NOTE ---
Rounds made with Dr. Jaimes. Awaiting Consult from Surgery for further plan of care.
[2024-05-01] MEDS: VANCOMYCIN HCL 1,000 MG in 0.9 % SODIUM CHLORIDE 250 ML 250 MG IV (10:30)
[2024-05-01 13:48] LABS: HCG Quantitative <1 mIU/mL
--- NOTE | 2024-05-01 14:15 | P.GSCN_ITS ---
History of Present Illness Consult details Consult date: 05/01/24 Reason for consult: other (recurrent left breast abscess retroareolar) Requesting physician: Shaikh Fiona Narrative: Shannan Lopez is a 39-year-old female who presented to the ED yesterday with complaints of left breast tenderness and pain. She was found to have a recurrent left retroareolar abscess by ultrasound as below. I performed an incision and drainage of a right breast abscess in May [address] Gil another general surgeon had performed incision and drainage of abscess of the left breast in April 2023. She grew out 2 different microorganisms and was treated with packing and antibiotics. Since that time she has seen a breast surgeon in [place] who told her it was related to her smoking and recommended that she quit smoking since she has been smoking a pack of cigarettes per day since age 15. She recently saw Dr. Cortez who works with Dr. Imtiaz Metz her family physician in [place] and they placed her on clindamycin and another antibiotic but it has not gotten better. Is more painful to the touch. She denies any fevers or chills. White blood count is normal. It is a recurrent breast abscess and she continues to smoke tobacco against advice. She just quit drinking alcohol and stated that she can only discontinue 1 thing at a time. She is very emotional. She stated that Dr. Gil had performed her incision and drainage of the right breast but she was wrong and stated that because I did not clip her milk ducts that is why she got a recurrence. She was therefore offered to go see Dr. Gil in [place] today if she wished [place] [address] Ultrasound Report Signed Patient: SHANNAN LOPEZ MR#: [id number] : 1985 Acct:[id number] Age/Sex: 39 / F ADM Date: 04/30/24 Loc: MS 220-[address]: Shaikh Fiona Orellana Ordering Physician: Shaikh Esteban Jaimes Date of Service: 05/01/24 Procedure(s): US breast LT complete Accession Number(s): [id number] cc: IMTIAZ METZ ; Shaikh Esteban Jaimes~ Patient Name: SHANNAN LOPEZ MR#: [id number] : 1985 Exam Date: 05/01/2024 Ordering Doctor: Shaikh Carolee Jaimes . RADIOLOGY REPORT PROCEDURE: US BREAST LT COMPLETE COMPARISON: None. INDICATIONS: breast cellulitis TECHNIQUE: Breast ultrasound was performed, with evaluation focusing only on specific areas of concern. FINDINGS: Left breast ultrasound demonstrates a heterogeneous avascular mass measuring 3.3 x 1.4 x 3.3 cm left retroareolar breast. In light of the patient's cellulitis I favor a focal breast abscess US/US breast LT complete Impression: 3.3 cm retroareolar left breast abscess PLEASE NOTE: A NORMAL ULTRASOUND EXAMINATION DOES NOT EXCLUDE THE POSSIBILITY OF BREAST CANCER. A CLINICALLY SUSPICIOUS PALPABLE LUMP SHOULD BE BIOPSIED. Dictated by: Gage Brownlee MD on 05/01/2024 at 08:57 Approved by: Gage Brownlee MD on 05/01/2024 at 09:02 Dictated By: Gage Brownlee M.D. 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N61.1 - Abscess of the breast and nipple (ICD-10) Family History Father Family history of COPD (chronic obstructive pulmonary disease) Mother Family history of cancer Social History Within the past year, how often did you have a drink containing alcohol: never Score interpretation: A score less than 3 is consistent with normal alcohol consumption. 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 Known occupational exposures/hazards: No Highest level of school completed/degree received: high school graduate Do you want help with school or training: No Are you now , , , , never or living with a partner: In a typical week, how many times do you talk on the telephone with family, friends, or neighbors: 3 or more times per week How often do you get together with friends or relatives: 3 or more times per week How often do you attend sabianist or rastafari services: 4 or more times per year Do you belong to any clubs or organizations such as sabianist groups unions, [employer] or athletic groups, or school groups: no Total score: 3 Score interpretation: A score of greater than or equal to 2 indicates the lowest level of social isolation. Little interest or pleasure in doing things: not at all Feeling down, depressed, or hopeless: not at all Feel stressed/tense/nervous/anxious/difficulty sleeping: not at all Due to disability, difficulty making decisions: No Do you think of yourself as: straight/heterosexual Gender Identity: female Meds Home Medications and Allergies Home Medications ?Medication ?Instructions ?Recorded ?Confirmed ?Type clindamycin HCl 300 mg capsule 300 mg PO Q8H 04/30/24 04/30/24 History hydrocodone 5 mg-acetaminophen 325 1 tab PO Q6H PRN pain 04/30/24 04/30/24 History mg tablet sulfamethoxazole 800 1 tab PO Q12H 04/30/24 04/30/24 History mg-trimethoprim 160 mg tablet Allergies Allergy/AdvReac Type Severity Reaction Status Date / Time adhesive tape Allergy Severe Blister Verified 05/01/24 06:39 Penicillins Allergy Intermediate Unknown Verified 05/01/24 06:39 Exam Constitutional Vital Signs, click to edit/add: Last Vital Signs Temp 98.4 F 05/01/24 12:00 Pulse 71 05/01/24 12:00 Resp 14 05/01/24 12:00 BP 108/70 05/01/24 12:00 Pulse Ox 96 05/01/24 12:00 O2 Del Method Room Air 05/01/24 12:00 Documenting provider has reviewed patient's vital signs: yes Common normals: no apparent distress, average body habitus, oriented x3, no limitations, healthy appearing, alert and well nourished Chest Nipple/areola: areola abnormal Other: About the left nipple areolar area medially about 5 to 6 cm. Chest images (female): 2 1. Redness and erythema nipple-areolar area Results Labs Labs: Abnormal lab results 04/30/24 05/01/24 Range/Units 08:40 05:24 RBC 4.14 L (4.20-5.40) 10^6/uL Plt Count 145 L (150-450) 10^3/uL Eos % (Auto) 0.4 L (0.9-7.0) % AST 12 L (15-37) U/L Total Protein 6.2 L (6.4-8.2) g/dL Albumin 2.9 L (3.4-5.0) g/dL Urine Opiates Screen Positive A (NEGATIVE) Ur Oxycodone Screen Positive A (NEGATIVE) U Cannabinoids Screen Positive A (NEGATIVE) Diabetes panel 04/30/24 05/01/24 Range/Units 10:42 05:24 Sodium 138 (136-145) mmol/L Potassium 4.2 (3.5-5.1) mmol/L Chloride 105 (98-107) mmol/L Carbon Dioxide 23.9 (21.0-32.0) mmol/L BUN 9.0 (7.0-18.0) mg/dL Creatinine 0.77 (0.55-1.02) mg/dL Glucose 88 (74-106) mg/dL Hemoglobin A1c 5.0 (4.5-6.2) % Calcium 9.0 (8.5-10.1) mg/dL AST 12 L (15-37) U/L ALT 16 (14-59) U/L Alkaline Phosphatase 58 (46-116) U/L Total Protein 6.2 L (6.4-8.2) g/dL Albumin 2.9 L (3.4-5.0) g/dL Calcium panel 05/01/24 Range/Units 05:24 Calcium 9.0 (8.5-10.1) mg/dL Albumin 2.9 L (3.4-5.0) g/dL Pituitary panel 11/04/24 Range/Units 05:24 Sodium 138 (136-145) mmol/L Potassium 4.2 (3.5-5.1) mmol/L Chloride 105 (98-107) mmol/L Carbon Dioxide 23.9 (21.0-32.0) mmol/L BUN 9.0 (7.0-18.0) mg/dL Creatinine 0.77 (0.55-1.02) mg/dL Glucose 88 (74-106) mg/dL Calcium 9.0 (8.5-10.1) mg/dL Adrenal panel 05/01/24 Range/Units 05:24 Sodium 138 (136-145) mmol/L Potassium 4.2 (3.5-5.1) mmol/L Chloride 105 (98-107) mmol/L Carbon Dioxide 23.9 (21.0-32.0) mmol/L BUN 9.0 (7.0-18.0) mg/dL Creatinine 0.77 (0.55-1.02) mg/dL Glucose 88 (74-106) mg/dL Calcium 9.0 (8.5-10.1) mg/dL Total Bilirubin 0.5 (0.2-1.0) mg/dL AST 12 L (15-37) U/L ALT 16 (14-59) U/L Alkaline Phosphatase 58 (46-116) U/L Total Protein 6.2 L (6.4-8.2) g/dL Albumin 2.9 L (3.4-5.0) g/dL All other labs normal. Imaging Additional studies: breast Ultrasound report reviewed Assessment and Plan Assessment and Plan (1) Cellulitis of breast: (2) Abscess of breast: Assessment and Plan: Recurrent left breast abscess retroareolar (3) Current smoker: Plan 1. Tobacco cessation discussed with patient 2. Incision and drainage of recurrent left breast abscess in the OR under anesthesia; risks benefits and alternatives to surgery may include infection, bleeding, pain or recurrence.
--- NOTE | 2024-05-01 14:27 | PM.GSPRC ---
Date of procedure: 05/01/24 Indications for Procedure: recurrent left breast abscess Pre-op diagnosis: recurrent left breast abscess Post-op diagnosis: same as pre-op Procedure: Incision and drainage recurrent left breast abscess retroareolar Incisional biopsy left breast upper inner quadrant to rule out inflammatory tissue versus other etiology Findings: Recurrent left breast abscess within the tissue Anesthesia: KENYON Surgeon: Neeraj Grigsby Procedure Summary: Patient was taken to the operating suite placed in supine position given a general anesthetic by the engineer first assistant. Timeout was taken. She had been given preoperative antibiotics. The left breast was prepped and draped in usual sterile fashion. A circumareolar incision was made over the previous circumareolar incision the medial portion of the breast and dissection was carried out with sharp knife and hemostat. Upon squeezing the breast purulent drainage came out of the nipple. This was sent for culture and sensitivity. Incision and drainage of the left breast was performed through the old incision in the medial areolar area. There was explored with a gloved finger and a hemostat and cultured. The wound was then irrigated with saline and then packed with half-inch iodoform gauze. Sterile dressing was placed and 1% Xylocaine with epinephrine 10 cc was used anesthetize subcu tissues. Head Banquet Waiter/Waitress: Lashawn Marquez, medical student Estimated blood loss (mL): 20 Specimens: Culture and sensitivity and left breast t all the okay issue Complications: No Condition: stable Disposition: PACU
[2024-05-01] MEDS: LIDOCAINE HCL 1%-EPINEPHRINE 1:100,000 20 ML MDV 10 ML INJ (14:54)
[2024-05-01] MEDS: HYDROMORPHONE HCL 0.5 MG/0.5 ML SYRINGE IV (15:20)
--- NOTE | 2024-05-01 16:02 | P.IMPN_ITS ---
Progress Note: A&P Assessment and Plan (1) Cellulitis of breast: (2) Abscess of breast: (3) Current smoker: Plan s/p I&D and incisional biopsy. F/u cultures. Mild improvement overall when I saw her in the morning but still has considerable erythema. C/w IV abx. Monitor overnight post operatively. C/w pain management, combination of oral/IV narcotics along with Toradol. Internal Medicine - PN: Subj Subjective Interval history: Seen and examined before surgery and post operatively also. No overnight events. Erythema/pain had improved a little with IV abx. US revealed 3 cm abscess. Patient went to OR in the afternoon for I&D. Exam Narrative Exam Narrative: Exam performed when Disha CARDENAS was present in room as nursing educator Constitutional Vital Signs, click to edit/add: Last Vital Signs Temp 97.4 F L 05/01/24 15:06 Pulse 60 05/01/24 15:50 Resp 15 05/01/24 15:50 BP 124/80 05/01/24 15:50 Pulse Ox 98 05/01/24 15:50 O2 Del Method Room Air 05/01/24 15:50 Documenting provider has reviewed patient's vital signs: yes Common normals: no apparent distress and oriented x3 General appearance: cooperative Chest Other: Left breast - erythematous/indurated skin involving all of her left breast. Mild improvement compared to before. Area of localized swelling that is about 5 cm nipple/alveolar region. Respiratory Common normals: normal respiratory effort and clear to auscultation bilaterally Effort & inspection: able to speak in complete sentences Auscultation: clear to auscultation bilaterally Cardio Common normals: regular rate, S1 normal heart sound and S2 normal heart sound Rate: regular rate Heart sounds: S1 normal and S2 normal Neuro Common normals: oriented x3, moves all extremities and no focal motor deficits Psych Common normals: mental status grossly normal, denies hallucinations, denies homicidal ideation and denies suicidal ideation Internal Medicine - PN: Obj Da Labs Labs: Laboratory Results - last 24 hr 04/30/24 05/01/24 08:40 05:24 WBC 7.5 RBC 4.14 L Hgb 12.6 Hct 37.3 MCV 90.1 MCH 30.4 MCHC 33.8 RDW 13.6 Plt Count 145 L MPV 10.3 Neut % (Auto) 65.9 Lymph % (Auto) 27.8 [place] % (Auto) 5.2 Eos % (Auto) 0.4 L Baso % (Auto) 0.4 Neut # (Auto) 4.9 Lymph # (Auto) 2.1 [place] # (Auto) 0.4 Eos # (Auto) 0.0 Baso # (Auto) 0.0 Abs Immat Gran (auto) 0.02 Imm/Tot Granulo (auto) 0.3 Sodium 138 Potassium 4.2 Chloride 105 Carbon Dioxide 23.9 Anion Gap 13.3 BUN 9.0 Creatinine 0.77 Est GFR ( Amer) >60 Est GFR (Non-Af Amer) >60 BUN/Creatinine Ratio 11.7 Glucose 88 Calcium 9.0 Total Bilirubin 0.5 AST 12 L ALT 16 Alkaline Phosphatase 58 Total Protein 6.2 L Albumin 2.9 L Globulin 3.3 Albumin/Globulin Ratio 0.9 HCG, Quant <1 Urine Opiates Screen Positive A Ur Buprenorphine Scrn Negative Ur Oxycodone Screen Positive A Urine Methadone Screen Negative Ur Barbiturates Screen Negative U Tricyclic Antidepress Negative Ur Phencyclidine Scrn Negative Ur Amphetamines Screen Negative U Methamphetamines Scrn Negative U Benzodiazepines Scrn Negative Urine Cocaine Screen Negative U Cannabinoids Screen Positive A
[2024-05-01] MEDS: ENOXAPARIN SODIUM 40 MG/0.4 ML SYRINGE SUBQ (16:11)
[2024-05-01] MEDS: VANCOMYCIN HCL 1,000 MG in 0.9 % SODIUM CHLORIDE 250 ML 200 MG IV (18:16)
[2024-05-01] MEDS: FLUCONAZOLE 150 MG TABLET PO (22:01)
[2024-05-02 02:33] LABS: Basophils Percent Auto 0.1 % (0.2-2.0); Eosinophils Percent Auto 0.1 % (0.9-7.0); Hematocrit 36.1 % (36.0-48.0); Hemoglobin 12.3 g/dL (12.0-16.0); Immature Granulocytes Abs Auto 0.04 10^3/uL (0.00-0.03); Immature Granulocytes Pct Auto 0.4 % (0.0-0.5); Lymphocytes Absolute Auto 1.1 10^3/uL (1.2-3.8); Lymphocytes Percent Auto 11.7 % (20.5-60.0); Mean Corpuscular HGB Conc 34.1 g/dL (29.9-35.2); Mean Corpuscular Hemoglobin 30.4 pg (26.7-34.0); Mean Corpuscular Volume 89.1 fL (81.0-99.0); Mean Platelet Volume 10.5 fL (9.5-13.5); Monocytes Absolute Auto 0.3 10^3/uL (0.3-0.8); Neutrophils Absolute Auto 8.1 10^3/uL (1.4-6.5); Neutrophils Percent Auto 84.7 % (43.0-75.0); Platelet Count 169 10^3/uL (150-450); Red Blood Count 4.05 10^6/uL (4.20-5.40); Red Cell Distribution Width 13.1 % (11.0-15.0); White Blood Count 9.6 10^3/uL (4.0-11.0)
[2024-05-02 02:50] LABS: Alanine Aminotransferase 17 U/L (14-59); Albumin Globulin Ratio 0.8; Albumin Level 2.8 g/dL (3.4-5.0); Alkaline Phosphatase 60 U/L (46-116); Anion Gap 14.6; Aspartate Amino Transferase 11 U/L (15-37); BUN Creatinine Ratio 12.8; Bilirubin Total 0.4 mg/dL (0.2-1.0); Calcium 8.9 mg/dL (8.5-10.1); Chloride 104 mmol/L (98-107); Estimated GFR (African America >60 (>=60 mL/min/1.73m^2); Estimated GFR (Non-African Ame >60 (>=60 mL/min/1.73m^2); Globulin 3.4 g/dL; Glucose 139 mg/dL (74-106); Potassium 4.6 mmol/L (3.5-5.1); Sodium 139 mmol/L (136-145); Total Protein 6.2 g/dL (6.4-8.2)
[2024-05-02 02:53] LABS: Vancomycin Trough 9.9 ug/mL (5.0-20.0)
[2024-05-02] MEDS: VANCOMYCIN HCL 1,000 MG in 0.9 % SODIUM CHLORIDE 250 ML 200 MG IV (03:05)
[2024-05-02 04:24] VITALS: BP 120/81; PULSE 55; TEMP 37; O2SAT 94
[2024-05-02] MEDS: AZTREONAM 1,000 MG in 0.9 % SODIUM CHLORIDE 50 ML 100 MG IV (04:26)
[2024-05-02] MEDS: OXYCODONE HCL 5 MG TABLET PO ×2 (04:26→09:58)
[2024-05-02] MEDS: LACTATED RINGER'S SOLUTION 1,000 ML 100 ML IV (04:26)
[2024-05-02] MEDS: KETOROLAC TROMETHAMINE 30 MG/ML VIAL IVP ×2 (06:05→12:48)
[2024-05-02 07:59] VITALS: BP 111/74; PULSE 61; TEMP 36.9; O2SAT 95
[2024-05-02] MEDS: ONDANSETRON PF 4 MG/2 ML VIAL IV (08:04)
[2024-05-02] MEDS: ACETAMINOPHEN 325 MG TABLET 650 MG PO (08:04)
[2024-05-02] MEDS: NICOTINE 21 MG PATCH.TD24 TD (08:05)
[2024-05-02 08:24] VITALS: O2SAT 95
[2024-05-02] MEDS: VANCOMYCIN HCL 1,000 MG in 0.9 % SODIUM CHLORIDE 250 ML 250 MG IV (09:11)
--- NOTE | 2024-05-02 10:18 | CM.NOTE ---
Rounds made with Dr. Jaimes, pt will discharge to home today. Dr. Jaimes will reach out to Dr. Grigsby for drsg change instructions and f/u care. Pt voices she will not be able to perform drsg changes at home. Pt attempted the last time and unable to stomach doing the changes herself and pt does not have assistance at home to change dressing. Pt had came to hospital last episode of breast cellulitis as [facility] for drsg changes. Pt voices wanting to return as [facility] pt for drsg changes.
--- NOTE | 2024-05-02 11:12 | PM.DS1 ---
DS: Providers Provider Date of admission: 04/30/24 14:32 Primary care physician: TERRELL METZ Admitting clinician: Shaikh Fiona Attending physician on admission: Shaikh Fiona Consults: 04/30/24 15:07 Consult to General Surgeon Routine Consulting Provider: Neeraj Owusu Reason for consultation: Breast cellulitis/abscess Attending physician on discharge: Shaikh Fiona Discharging clinician: Shaikh Fiona Anticipated date of discharge: 05/02/24 DS: Diagnosis Discharge Diagnosis (1) Cellulitis of breast: (2) Abscess of breast: (3) Current smoker: DS: Summary Hospital Course Hospital Course: Patient with prior hx of recurrent breast abscess/cellulitis requiring I&D in the past, presented to ED after she noticed erythema/tenderness in her left breast. She also noticed that around her nipple area, there was painful swelling. She was prescribed Bactrim/Clindamycin for it by her PCP. However, erythema/tenderness progressively worsened with increasing pain/swelling that was fluctuant She was evaluated in ED and ED provider drained purulent fluid -about 10 cc from the alveolar/nipple region that was sent for culture. Patient was admitted for observation on IV abx - started on vancomycin/aztreonam. US breast showed 3.3 cm abscess in retro-alveolar region. Patient was taken to OR for I&D, and more purulence fluid was noted that was sent for cx. Cultures are still pending. Surround skin erythema is more or less gone. She has post op wound that will need daily packing with gauze. Patient previously has not been able to do it herself and will need to f/u as outpatient for daily dressing. Patient is medically stable for discharge on oral Clindamycin and Bactrim. She is PCN allergic. She will need f/u with PCP in one week. She will also need to f/u with Dr Grigsby as outpatient in 1-2 weeks Status at Discharge Functional status at discharge: independent ambulation Overall status at discharge: patient is back to baseline Time Spent with Patient Time attestation: Total time spent providing and/or coordinating discharge services: Time spent: greater than 30 minutes Exam Constitutional Vital Signs, click to edit/add: Last Vital Signs Temp 98.4 F 05/02/24 07:59 Pulse 61 05/02/24 07:59 Resp 18 11/05/24 07:59 BP 111/74 05/02/24 07:59 Pulse Ox 95 05/02/24 08:24 O2 Del Method Room Air 05/02/24 08:24 Documenting provider has reviewed patient's vital signs: yes Common normals: no apparent distress and oriented x3 General appearance: cooperative Chest Other: Left breast - erythema more or less resolved. Blood tinged gauze/packing in post surgical wound. Respiratory Common normals: normal respiratory effort and clear to auscultation bilaterally Effort & inspection: able to speak in complete sentences Auscultation: clear to auscultation bilaterally Cardio Common normals: regular rate, S1 normal heart sound and S2 normal heart sound Rate: regular rate Heart sounds: S1 normal and S2 normal Neuro Common normals: oriented x3, moves all extremities and no focal motor deficits Psych Common normals: mental status grossly normal, denies hallucinations, denies homicidal ideation and denies suicidal ideation DS: Data Data Completed and Pending Labs on day of discharge: Labs from last 24 hours 05/02/24 05/01/24 02:18 05:24 WBC 9.6 RBC 4.05 L Hgb 12.3 Hct 36.1 MCV 89.1 MCH 30.4 MCHC 34.1 RDW 13.1 Plt Count 169 MPV 10.5 Neut % (Auto) 84.7 H Lymph % (Auto) 11.7 L [place] % (Auto) 3.0 Eos % (Auto) 0.1 L Baso % (Auto) 0.1 L Neut # (Auto) 8.1 H Lymph # (Auto) 1.1 L [place] # (Auto) 0.3 Eos # (Auto) 0.0 Baso # (Auto) 0.0 Abs Immat Gran (auto) 0.04 H Imm/Tot Granulo (auto) 0.4 Sodium 139 Potassium 4.6 Chloride 104 Carbon Dioxide 25.0 Anion Gap 14.6 BUN 10.0 Creatinine 0.78 Est GFR ( Amer) >60 Est GFR (Non-Af Amer) >60 BUN/Creatinine Ratio 12.8 Glucose 139 H Calcium 8.9 Total Bilirubin 0.4 AST 11 L ALT 17 Alkaline Phosphatase 60 Total Protein 6.2 L Albumin 2.8 L Globulin 3.4 Albumin/Globulin Ratio 0.8 HCG, Quant <1 Vancomycin Trough 9.9 Preliminary micro results at discharge 04/30/24 12:45 Aerobic Culture - Preliminary Abscess - Abscess Discharge Plan Discharge Disposition: Home, Self-Care Condition: Good Discharge Medications: New nicotine 21 mg/24 hr patch 24 hour 1 patch transdermal DAILY 14 Days Qty: 14 0RF Continued hydrocodone-acetaminophen 5-325 mg tablet 1 tab PO Q6H PRN (Reason: pain) 3 Days Qty: 10 0RF sulfamethoxazole-trimethoprim 800-160 mg tablet 1 tab PO Q12H 10 Days Qty: 20 0RF Changed clindamycin HCl 300 mg capsule 300 mg PO Q6H 10 Days Qty: 40 0RF Activity: increase activity as tolerated Diet: advance to your usual diet Print Language: Citizen [place] Forms: Portal Instructions Follow Up Appointments: DR Metz [address] [phone] Apr @1:00 F/u with Dr Grigsby in 1-2 weeks
--- NOTE | 2024-05-02 14:02 | CM.NOTE ---
Completed [facility] paperwork for daily drsg changes, faxed to Centralized scheduling and walked order also down to [facility] clinic along with supplies for drsg changes.
--- NOTE | 2024-05-04 13:00 | CM.DCFOLLOWU ---
05/04- 1st attempt, no answer
--- NOTE | 2024-05-05 13:14 | CM.DCFOLLOWU ---
Person spoke with: Shannan How are you feeling? Better How is your pain? Still having pain and coming to [facility] for dressing changes Did you understand your discharge instructions? Yes Do you have any questions about your discharge instructions? No Were you given any prescriptions at discharge? Yes Were you able to get your prescriptions filled? Yes Do you understand how to take your medications as ordered? Yes Do you have any questions about your follow up appointment and do you plan to keep your follow up appointment? I am going to my f/u appt now, I changed date d/t need of more pain medications Is there anything else that you would like to discuss? No Questions/Comments/Concerns/Other:
== END 2024-05-02 15:19 | disposition home or self-care (01) ==
LOC: ER 12:51 → MS 05-01 06:02
PROVIDERS: Surgery; Admitting Provider Internal Medicine; Emergency Provider Emergency Medicine; PCP Family Medicine; Visit Provider Internal Medicine
PROC: (CPT 400; principal; 2024-05-01 14:30)
DX: N61.1 Abscess of the breast and nipple (principal); Z88.0 Allergy status to penicillin; R11.2 Nausea with vomiting, unspecified; B96.89 Other specified bacterial agents as the cause of diseases classified elsewhere; F17.210 Nicotine dependence, cigarettes, uncomplicated
CPT/HCPCS: 19020; 19101; 10160; 36415; 76641; 80053; 80202; 80307; 83036; 83605; 84702; 85025; 87040; 87070; 87075; 87150; 88304; 94761; 96365; 96366; 96367; 96372; 96375; 96376; 99285; 99406; 99999; G0378; J0457; J1100; J1171; J1650; J1885; J2250; J2270; J2405; J2704; J3010; J3370

== ENCOUNTER 2024-05-22 07:32 | Outpatient (RCR) | payer OTHER, SELFPAY ==
[2024-05-03 12:10] VITALS: BP 108/71; PULSE 83; TEMP 36.6; O2SAT 99
--- NOTE | 2024-05-03 12:45 | PC.NURSE ---
1210: Pt. in for daily dressing change. Seated in recliner. VSS. Dressing to left breast removed. Noted to have mod. amount bloody drainage. Approximately 5ft. of bloody iodoform packing removed from left breast wound. Wound measured 6cm deep, 3cm long and 1.5cm width. Site cleansed with soap and water. Wound bed beefy red, irrigated with saline. Packed with 1/2 iodoform dressing and covered with 4x4 and ABD dressing. Pt. moaned out throughout packing of wound. Reassurance and comfort provided throughout process. 1225: Pt. d/c'd amb. to home.
[2024-05-04 13:05] VITALS: BP 122/68; PULSE 70; TEMP 36.6; O2SAT 97
--- NOTE | 2024-05-04 13:58 | PC.NURSE ---
1305: Pt. in for daily dressing change. Seated in recliner. VSS. Dressing to left breast removed. Noted to have mod. amount bloody drainage. Approximately 4.5 ft. of bloody iodoform packing removed from left breast wound. Wound measured 6cm deep, 3cm long and 1.5cm width. Site cleansed with soap and water. Wound bed beefy red, irrigated with saline. Packed with 1/2 iodoform dressing and covered with 4x4 and ABD dressing. Pt. moaned out throughout packing of wound. Reassurance and comfort provided throughout process. Relayed taking Vicodin prior to coming to [facility]. Encouraged rest upon arrival to home. 1315: Pt. d/c'd amb. to home.
--- NOTE | 2024-05-05 16:10 | PC.NURSE ---
1305: Pt. in for daily dressing change. Seated in recliner. Dressing to left breast removed. Noted to have mod. amount bloody drainage. Approximately 4.5 ft. of bloody iodoform packing removed from left breast wound. Site cleansed with soap and water. Wound bed beefy red, irrigated with saline. Packed with 1/2 iodoform dressing and covered with 4x4 and ABD dressing. Pt.c/o burning throughout iodoform packing. Reassurance and comfort provided throughout process. Pt reports has 1 Vicodin tab left, encouraged her to call provider for refill and take prior to drsg change. Encouraged rest upon arrival to home. 1330: Pt. d/c'd amb. to home.
[2024-05-08 13:00] VITALS: BP 103/69; PULSE 78; TEMP 36.6; O2SAT 97
--- NOTE | 2024-05-08 13:51 | PC.NURSE ---
1300: Pt. to [facility] amb. for dressing change to left breast. Old dressing to left breast removed with small amount serosang. drainage noted on ABD. Approximately 24 iodoform packing removed from left breast wound. Serosang. drainage noted to packing, no active bleeding or drainage observed. Wound measured Depth- 5cm, length- 3cm and width 2cm. Wound bed beefy red, edges well defined. Left breast cleansed with soap and water. Wound to medial aspect of nipple irrigated with saline. Packed wound with approximately 16 of 1/2 iodoform packing strip. Covered with ABD. Secured in place using sports bra. Pt. tolerated with minimal c/o discomfort. 1312: D/c'd amb. to home.
[2024-05-09 13:35] VITALS: BP 106/60; PULSE 65; TEMP 36.4; O2SAT 97
[2024-05-10 12:45] VITALS: BP 122/64; PULSE 68; TEMP 36.6; O2SAT 97
--- NOTE | 2024-05-10 13:07 | PC.NURSE ---
1245: Pt. to [facility] amb. for dressing change to left breast. Old dressing to left breast removed with small amount serosang. drainage noted on ABD. Approximately 12 iodoform packing removed from left breast wound. Serosang. drainage noted to packing, no active bleeding or drainage observed. Wound measured Depth- 4cm, length- 3cm and width 1.5cm. Wound bed beefy red, edges well defined. Left breast cleansed with soap and water. Wound to medial aspect of nipple irrigated with saline. Packed wound with approximately 14 of 1/2 iodoform packing strip. Covered with ABD. Secured in place using sports bra. Pt. tolerated with minimal c/o discomfort. 1255: D/c'd amb. to home.
--- NOTE | 2024-05-12 13:20 | PC.NURSE ---
1300 Arrival ambulatory to chair. Left breast packing removed from wound (8 o'clock position). approx 12 inches of packing removed mucopurulent, no odor noted. irrgated wound with ns. Wound measures approx 3.5 cm deep. noted firmness around wound. Patient states it is much less painful. covered packing with abd, secured with bra. 1310 released ambulatory
[2024-05-14 13:56] VITALS: BP 106/67; PULSE 69; TEMP 36.8; O2SAT 97
--- NOTE | 2024-05-15 13:38 | PC.NURSE ---
Pt. to [facility] amb. for dressing change to left breast. Old dressing to left breast removed with small amount serosang. drainage noted on ABD. Approximately 4 iodoform packing removed from left breast wound. Serosang. drainage noted to packing, no active bleeding or drainage observed. Wound bed beefy red, edges well defined. Wound to medial aspect of nipple irrigated with saline. Packed wound with approximately 4 of 1/2 iodoform packing strip. Covered with ABD. Secured in place with bra. Pt. tolerated with minimal c/o discomfort. D/c'd amb. to home.
--- NOTE | 2024-05-17 10:47 | PC.NURSE ---
1200: Pt to [facility] amb for daily dressing change. Approximately 15cm Packing removed from wound to mid nipple, left breast. Wound measured 3cm in depth, 2cm length and 1.5cm wide. Wound bed beefy red with no active drainage or bleeding. Edges well defined. Irrigated with saline and packed with approximately 13cm 1/2 iodoform dressing. Covered with ABD, secured in place with bra. Pt. tolerated with min. c/o. 1210: D/c'd amb. to home.
--- NOTE | 2024-05-17 12:53 | PC.NURSE ---
1220: Pt to [facility] amb for daily dressing change. Approximately 15cm Packing removed from wound to mid nipple, left breast. Wound measured 3cm in depth, 2cm length and 1.5cm wide. Wound bed beefy red with no active drainage or bleeding. Edges well defined. Irrigated with saline and packed with approximately 13cm 1/2 iodoform dressing. Covered with ABD, secured in place with bra. Pt. tolerated with min. c/o. 1232: D/c'd amb. to home.
--- NOTE | 2024-05-18 14:21 | PC.NURSE ---
Pt to [facility] amb for daily dressing change. Approximately 15cm Packing removed from wound to mid nipple, left breast. Wound measured 3cm in depth, 2cm length and 1.5cm wide. Wound bed beefy red with no active drainage or bleeding. Edges well defined. Irrigated with saline and packed with approximately 13cm 1/2 iodoform dressing. Covered with ABD, secured in place with bra. Pt. tolerated with min. c/o. D/c'd amb. to home.
--- NOTE | 2024-05-19 12:51 | PC.NURSE ---
1240:Pt to [facility] amb for daily dressing change. Packing removed from wound to mid nipple, left breast. Wound measured 2cm in depth, 1.5cm length and 0.5cm wide. Wound bed beefy red with no active drainage or bleeding. Edges well defined. Irrigated with saline and packed with approximately 5cm 1/2 iodoform dressing. Covered with 2 4x4 dressings, secured in place with bra. Pt. tolerated with min. c/o. 1250:D/c'd amb. to home.
== END 2024-05-22 11:48 | disposition home or self-care (01) ==
LOC: INF 07:32
PROVIDERS: PCP Family Medicine; Visit Provider Internal Medicine
DX: N61.1 Abscess of the breast and nipple (principal)